=== PATIENT | male | born 1950 | race Caucasian/White ===

== ENCOUNTER 2017-09-22 05:11 | Emergency (ER) | payer MEDICARE, OTHER, SELFPAY ==
[2017-09-22 05:16] VITALS: BP 156/64; PULSE 78; RESP 15; TEMP 37; O2SAT 95; BMI 37.1
--- NOTE | 2017-09-22 05:36 | RAD_ITS ---
STUDY: X-RAY CHEST REASON FOR EXAM: Male, 67 years old. Nausea vomiting and weakness TECHNIQUE: 2 views COMPARISON: October 30, 2016 FINDINGS: The heart is at the upper limits of normal in size. Median sternotomy wires are in place. There is no acute pneumonia or failure and no pleural effusions. Normal visualized thoracic spine. Normal visualized ribs, clavicles, and shoulders. There is no demonstrated abnormality of the visualized soft tissue structures of the upper abdomen. RAD/Chest PA and Lateral IMPRESSION: No acute findings in the lungs Electronically Signed: [place], at 6:13 EDT Tel , Service support ,
--- NOTE | 2017-09-22 05:36 | EKG12_ITS ---
Test Reason : WEAKNESS Blood Pressure : / mmHG Vent. Rate : 071 BPM Atrial Rate : 071 BPM P-R Int : 180 ms QRS Dur : 108 ms QT Int : 394 ms P-R-T Axes : 029 002 037 degrees QTc Int : 428 ms Normal sinus rhythm Normal ECG Confirmed by ROSY JOSEPH MD ([id number]), sports editor OSCAR AVILES ([id number]) on 09/26/2017 2:57:19 PM Referred By: TL Confirmed By:ROSY JOSEPH MD
--- NOTE | 2017-09-22 05:39 | ED.DCSUM_ITS ---
- ER Visit Summary Date of Service: 09/22/17 Chief Complaint: Weakness, nausea, vomiting History of Present Illness: The patient is a 67 M generalized weakness since yesterday a.m. periods felt symptoms prior to going to work out, symptoms worsen. States generalized aches. Nausea vomiting ?3 since yesterday. No hematemesis. No diarrhea. No urinary symptoms. States drinking more liquids therefore increased frequency. No chest pains or cough. He is status post a four-vessel bypass in October for exertional dyspnea leading to abnormal stress test and the cath. Currently nauseated. No further complaints. Physical Examination: General: Alert and oriented ?3, no acute distress HEENT: Normocephalic, atraumatic. Moist mucosa membranes Neck: supple, nontender. Cardiovascular: Regular rate and rhythm, no murmurs. Midline chest scar Respiratory: Normal breath sounds, symmetric, no distress Abdomen: Soft, nontender, nondistended Extremities: Nontender, no edema, pulses intact ?4 Neuro: no focal neurological deficits. Test Results: EKG sinus rate of 71, no ST or T-wave changes. Chest x-ray negative. Hemoglobin 14.8. Creatinine 0.94. Troponin negative. CK 71. Urine negative. Emergency Department Course and Treatment: Patient with generalized weakness, nausea and vomiting. Currently nauseated. Given Zofran IV fluids were given. With myalgias and recent cardiac history, workup initiated. Cardiac workup negative, CPK was negative. Reevaluation symptoms much more improved, nausea improved. Discussed likely viral syndrome at this time. Monitor symptoms continue oral fluids and follow with PCP. Return if any worsening symptoms. All questions were answered. Treatment Plan: [] Disposition: Discharge Impression: 1. Nausea and vomiting 2. Weakness This note was generated with [employer] dictation software. It may contain incorrect words, spelling, and punctuation that were not noted in review of the chart prior to signing ED Disposition - Plan for ED Patient: Disposition: Home or Assisted Living Chief Complaint: Weakness Diagnosis: Weakness, Nausea and vomiting Instructions: ED Viral Syndrome, ED Diet Vomiting Diarrhea Referrals: Jersey Knox III, MD [Primary Care Provider] - 3-5 Days
[2017-09-22 05:52] LABS: Absolute Lymphocyte Count 0.82 X10^3/ul (0.83-4.51); Absolute Neutrophil Count 10.5 X10^3/uL (2.0-7.7); Basophil# 0.01 X10^3/uL; Basophil% 0.1 % (0-1); Hematocrit 43.7 % (40-54); Hemoglobin 14.8 g/dl (13.0-16.5); Lymphocyte # 0.82 X10^3/ul (4.0); Lymphocyte % 6.9 % (19-41); Mean Corp Hgb Conc 33.9 g/gl (32-36); Mean Corpuscular Hgb 31.9 pg (27.0-32.0); Mean Corpuscular Volume 94.2 fL (80-94); Mean Platelet Vol. 10.3 fl (6.2-12.0); Monocyte# 0.52 X10^3/uL; Monocyte% 4.4 % (0-10); Neutrophil # 10.46 X10^3/uL (2.7-7.7); Neutrophil % 88.4 % (47-70); Platelet Count 203 K/mm3 (150-450); RBC Distribution Width SD 43.6 fl (35.1-43.9); Red Blood Count 4.64 M/mm3 (4.6-6.2); White Blood Count 11.8 K/mm3 (4.4-11.0)
[2017-09-22] MEDS: Ondansetron 4 MG/2 ML Vial IV (05:52)
[2017-09-22 05:56] LABS: POSITIVE COUNT NO; POSITIVE DIFFERENTIAL NO; POSITIVE MORPHOLOGY NO
[2017-09-22 05:58] LABS: Mucous, Urine 0 SEEN /hpf (<or=2+); Red Blood Cells-Urine 0 SEEN /hpf (0-5)
[2017-09-22 05:59] LABS: Color, Urine Yellow (Yellow); Glucose, Dipstick Normal (Normal); Ketone-Dipstick Negative (Negative); Leukocyte Esterase-Dipstick 25 /ul (Negative); Nitrite-Dipstick Negative (Negative); Occult Blood-Urine 10 /ul (Negative); Protein-Dipstick 30 mg/dl (Negative); Urine Bilirubin Dipstick Negative (Negative); Urine Clarity Clear (Clear); Urine Urobilinogen 4 mg/dl (Normal)
[2017-09-22 06:01] LABS: Anion Gap 8 (5-15); BUN 16 mg/dL (7-18); CPK Total, Creatine Kinase 71 U/L (39-308); Calcium,Total 8.5 mg/dL (8.5-10.1); Chloride 104 mmol/L (98-107); Creatinine, Serum 0.94 mg/dL (0.70-1.30); EST Glomerular Filtration Rate 85 mL/min (>60); Est Glom Filt Rate - Afr Amer 103 mL/min (>60); Estimated Creatinine Clearance 67.87 ml/min; Glucose 122 mg/dL (74-106); Potassium 3.7 mmol/L (3.5-5.1); Sodium Level 138 mmol/L (136-145)
[2017-09-22 06:15] LABS: Squamous Epithelial Cells - UA 0-5 SEEN /hpf (0-5)
[2017-09-22 06:17] LABS: White Blood Cells 0-5 SEEN /hpf (0-5)
[2017-09-22 06:18] LABS: Bacteria RARE /hpf (None Seen)
[2017-09-22 07:05] VITALS: BP 144/66; PULSE 73; RESP 19; O2SAT 98
== END 2017-09-22 07:08 | disposition home or self-care (01) ==
PROVIDERS: Emergency Provider Emergency Medicine; Family Provider Family Medicine; PCP Family Medicine
DX: R11.2 Nausea with vomiting, unspecified (principal); R53.1 Weakness; M79.1 Myalgia; I25.10 Atherosclerotic heart disease of native coronary artery without angina pectoris; I10 Essential (primary) hypertension; N40.0 Benign prostatic hyperplasia without lower urinary tract symptoms; K21.9 Gastro-esophageal reflux disease without esophagitis; R94.39 Abnormal result of other cardiovascular function study; Z79.02 Long term (current) use of antithrombotics/antiplatelets; Z79.82 Long term (current) use of aspirin; Z79.899 Other long term (current) drug therapy; Z87.891 Personal history of nicotine dependence; Z95.1 Presence of aortocoronary bypass graft
CPT/HCPCS: 71046; 80048; 81001; 82550; 84484; 85025; 93005; 96361; 96374; 99284; J7030; J7040; A4216; J2405

== ENCOUNTER → 2017-09-23 15:26 | Outpatient (CLI) | payer MEDICARE, OTHER, SELFPAY ==
--- NOTE | 2017-09-23 15:33 | VDLE_ITS ---
Reason For Study: RLE EDEMA RIGHT GSV is normal. CFV is compressible, spontaneous, phasic, competent and demonstrates normal augmentation. FV is compressible, spontaneous, phasic, competent and demonstrates normal augmentation. POP V is compressible, spontaneous, phasic, competent and demonstrates normal augmentation. T/P Trunk is compressible. PTV is compressible. RT PerV is compressible. Procedure Exam performed in department. The exam was diagnostic. A preliminary report was called and/or faxed to Dr Tabor @ [phone] @ 3:40 pm. Interpretation Summary There is no evidence of right lower extremity deep vein thrombosis. Right greater saphenous vein appears patent and compressible segmentally. Ordering Physician: Joe Rivera Referring Physician: Joe Rivera Performed By: Siomara Falcon RVT
== END ==
PROVIDERS: Family Provider Family Medicine; PCP Family Medicine
DX: R60.0 Localized edema (principal); L53.9 Erythematous condition, unspecified; R23.8 Other skin changes
CPT/HCPCS: 93971

== ENCOUNTER 2017-10-19 08:20 | Outpatient (RCR) | payer MEDICARE, OTHER, SELFPAY | END 2017-10-25 23:59 | LOC: NS 08:20 | PROVIDERS: Family Provider Family Medicine; PCP Family Medicine; Visit Provider Family Medicine | DX: E66.1 Drug-induced obesity (principal); Z68.35 Body mass index [BMI] 35.0-35.9, adult; Z71.3 Dietary counseling and surveillance | CPT/HCPCS: 97802 ==

== ENCOUNTER 2017-11-23 08:30 | Outpatient (RCR) | payer MEDICARE, OTHER, SELFPAY | END 2017-11-25 23:59 | LOC: NS 08:30 | PROVIDERS: Family Provider Family Medicine; PCP Family Medicine; Visit Provider Family Medicine | DX: E66.1 Drug-induced obesity (principal); Z68.35 Body mass index [BMI] 35.0-35.9, adult; Z71.3 Dietary counseling and surveillance | CPT/HCPCS: 97803 ==

== ENCOUNTER 2017-12-21 10:30 | Outpatient (RCR) | payer MEDICARE, OTHER, SELFPAY | END 2017-12-25 23:59 | LOC: NS 10:30 | PROVIDERS: Family Provider Family Medicine; PCP Family Medicine; Visit Provider Family Medicine | DX: E66.1 Drug-induced obesity (principal); Z68.35 Body mass index [BMI] 35.0-35.9, adult; Z71.3 Dietary counseling and surveillance | CPT/HCPCS: 97803 ==

== ENCOUNTER 2018-01-10 08:12 | Outpatient (RCR) | payer MEDICARE, OTHER, SELFPAY | END 2018-01-25 23:59 | LOC: NS 08:12 | PROVIDERS: Family Provider Family Medicine; PCP Family Medicine; Visit Provider Family Medicine | DX: E66.1 Drug-induced obesity (principal); Z68.35 Body mass index [BMI] 35.0-35.9, adult; Z71.3 Dietary counseling and surveillance | CPT/HCPCS: 97803 ==

== ENCOUNTER 2018-02-21 08:30 | Outpatient (RCR) | payer MEDICARE, OTHER, SELFPAY | END 2018-02-24 23:59 | LOC: NS 08:30 | PROVIDERS: Family Provider Family Medicine; PCP Family Medicine; Visit Provider Family Medicine | DX: E66.1 Drug-induced obesity (principal); Z68.35 Body mass index [BMI] 35.0-35.9, adult; Z71.3 Dietary counseling and surveillance | CPT/HCPCS: 97803 ==

== ENCOUNTER 2018-03-14 08:50 | Outpatient (RCR) | payer MEDICARE, OTHER, SELFPAY | END 2018-03-27 23:59 | LOC: NS 08:50 | PROVIDERS: Family Provider Family Medicine; PCP Family Medicine; Visit Provider Family Medicine | DX: E66.1 Drug-induced obesity (principal); Z68.35 Body mass index [BMI] 35.0-35.9, adult; Z71.3 Dietary counseling and surveillance | CPT/HCPCS: 97803 ==

== ENCOUNTER 2018-04-27 08:30 | Outpatient (RCR) | payer MEDICARE, OTHER, SELFPAY | END 2018-04-27 23:59 | LOC: NS 08:30 | PROVIDERS: Family Provider Family Medicine; PCP Family Medicine; Visit Provider Family Medicine | DX: E66.1 Drug-induced obesity (principal); Z68.35 Body mass index [BMI] 35.0-35.9, adult; Z71.3 Dietary counseling and surveillance | CPT/HCPCS: 97803 ==

== ENCOUNTER 2018-05-11 08:45 | Outpatient (RCR) | payer MEDICARE, OTHER, SELFPAY | END 2018-05-11 23:59 | disposition home or self-care (01) | LOC: NS 08:45 | PROVIDERS: Family Provider Family Medicine; PCP Family Medicine; Visit Provider Family Medicine | DX: E66.1 Drug-induced obesity (principal); Z68.35 Body mass index [BMI] 35.0-35.9, adult; Z71.3 Dietary counseling and surveillance | CPT/HCPCS: 97803 ==

== ENCOUNTER 2019-02-09 05:24 | Observation (INO) | payer MEDICARE, OTHER, SELFPAY ==
[2019-02-09] VITALS (12 sets, daily range): BP systolic 143–189; BP diastolic 62–82; PULSE 54–64; RESP 15–18; TEMP 36.6–37.1; O2SAT 95–99; BMI 35.6; BMI 34.7
[2019-02-09 05:40] LABS: Bedside Glucose 92 mg/dL (70-110)
--- NOTE | 2019-02-09 05:42 | NURSING ---
BLOOD SUGAR 92.
--- NOTE | 2019-02-09 05:52 | CT_ITS ---
STUDY: CT BRAIN WITHOUT CONTRAST REASON FOR EXAM: Male, 69 years old. Numbness RADIATION DOSAGE (If Supplied By Facility): CTDIvol = ( 44.99 ) mGy, DLP = ( 829.85 ) mGycm TECHNIQUE: Transaxial CT imaging of the brain was performed without administration of intravenous contrast material. Individualized dose optimization techniques were used for this CT. COMPARISON: 07/09/2015 FINDINGS: Normal soft tissue structures. Normal calvarium. Normal size ventricles and extra-axial spaces for the patient's age. Normal white matter tracts of the cerebral hemispheres. Normal basal ganglia and thalami. Normal brainstem. Normal cerebellum. There is no intracranial hemorrhage. There are no findings of an acute ischemic infarction. Normal visualized paranasal sinuses. CT/Brain/Head without Contrast IMPRESSION: Normal unenhanced CT scan of the brain. Electronically Signed: Nba Garrido MD at 6:13 EST , Service support ,
--- NOTE | 2019-02-09 05:52 | EKG12_ITS ---
Test Reason : NEURO Blood Pressure : / mmHG Vent. Rate : 054 BPM Atrial Rate : 054 BPM P-R Int : 202 ms QRS Dur : 100 ms QT Int : 436 ms P-R-T Axes : 018 -03 026 degrees QTc Int : 413 ms Sinus bradycardia Otherwise normal ECG Confirmed by JAKE MELTON, ROSY ([id number]), communications editor OSCAR AVILES ([id number]) on 02/13/2019 11:31:02 AM Referred By: SUSAN Confirmed By:ROSY JOSEPH MD
--- NOTE | 2019-02-09 05:52 | RAD_ITS ---
STUDY: X-RAY CHEST REASON FOR EXAM: Male, 69 years old. Numbness TECHNIQUE: Frontal view COMPARISON: 09/22/2017 FINDINGS: The lungs are clear and expanded. There is no demonstrated pleural abnormality. There is mild cardiac enlargement. There has been open heart surgery. Normal visualized pulmonary arteries. Normal visualized aortic arch and descending thoracic aorta. Normal visualized thoracic spine. Normal visualized ribs, clavicles, and shoulders. There is no demonstrated abnormality of the visualized soft tissue structures of the upper abdomen. RAD/Chest 1 View IMPRESSION: There is NO acute cardiopulmonary abnormality. Electronically Signed: Nba Garrido MD at 6:21 EST , Service support ,
--- NOTE | 2019-02-09 06:02 | ED.VIS.STROK ---
History of Present Illness Chief Complaint: Numb/Ting Informant: Patient Onset: Hours - 2 Context: Sudden Onset - relatively; was already awake, did not wake him up Timing: Continuous Quality and Location: Right Face Paresthesia. Negative for: Right Facial Droop - felt like he was drooling out of right side of mouth, but saw no facial asymmetry when looking in the mirror., Left Arm Weakness, Right Leg Weakness, Left Leg Weakness, Slurred Speech, Expressive Aphasia, Receptive Aphasia, Difficulty with Ambulation Onset: acute Current Severity: Mild Maximum Severity: Moderate Worsened by: nothing Relieved by: nothing in particular Associated Symptoms: Negative for: Headache, Nausea, Vomiting, Chest Pain Narrative: Patient has a history of coronary disease with stents and CABG done remotely, he has been doing very well. He usually gets up very early in the morning as he did today, and at 4 AM noticed he was having some numbness on the right side of his face, forehead and lower face. He felt like he was drooling out the right side of his mouth, but when he looked in the mirror he did not see any asymmetry. He experienced no symptoms in his arms or legs, no trouble speaking or understanding others, feeling confused, or any other acute symptoms such as headache or chest pain. He takes aspirin daily, no longer takes clopidogrel and no anticoagulants. Prior similar symptoms: No Recent Illness/Hospitalization: No - Past Medical History (1) CAD (coronary artery disease) Status: Chronic (2) BPH (benign prostatic hyperplasia) Status: Chronic (3) GERD (gastroesophageal reflux disease) Status: Chronic (4) Hyperlipidemia Status: Chronic (5) Hypertension Status: Chronic Past Medical History - Allergies and Home Meds Allergies/Adverse Reactions: Allergies Ogxmoha-Uci-Zvu Reductase Inhibitor Adverse Reaction (Verified 02/09/19 05:27) muscle pain Primary Care Physician: Jersey Knox III, MD [Primary Care Provider] - Surgical History: angioplasty - stents, coronary bypass surgery, herniorrhaphy, tonsillectomy, - - Surgery for ruptured lumbar disc ?2 Lives: Alone Smoking Status: Former smoker Drugs: None - Family History Maternal Family History: Reports: Heart Disease Paternal Family History: Reports: No pertinent history Sibling Family History: Reports: Heart Disease Review of Systems General: Denies: Chills, Fever, Sweats Eyes: Denies: Visual changes - bilaterally, Diplopia ENT: Denies: Rhinorrhea, Sore throat Cardiovascular: Denies: Chest pain, Palpitations Respiratory: Denies: Dyspnea, Cough, Dyspnea on exertion Gastrointestinal: Denies: Abdominal pain, Nausea, Vomiting, Diarrhea, Melena, Hematochezia Genitourinary: Denies: Dysuria, Hematuria, Frequency Musculoskeletal: Denies: Neck pain, Back pain, Swelling, Extremity Pain Skin: Denies: Rash, Wounds Neurological: Reports: Numbness. Denies: Headache, Weakness STROKE Vital Signs/Narrative: Vital Signs Temp Pulse Resp BP Pulse Ox 02/09/19 05:59 63 18 179/72 H 96 02/09/19 05:43 61 18 179/72 H 98 02/09/19 05:24 97.9 F 64 16 189/82 H 98 Inital Vital Signs reviewed: Yes - NIHSS Initial 1a Level of Consciousness: 0 1b LOC Questions (Score 2 if aphasic/stupor): 0 1c LOC Commands (Only score 1st attempt): 0 2 Best Gaze (If aphasic, use reflexive mvmts.): 0 3 Visual: 0 4 Facial Palsy: 0 5 Motor Arm Right (UN = amputation/fusion): 0 5 Motor Arm Left: 0 6 Motor Leg Right: 0 6 Motor Leg Left: 0 7 Limb ataxia (Only + if out of proportion): 0 8 Sensory (Aphasia/stupor=0 or 1, coma=2): 0 9 Best Language: 0 10 Dysarthria (mute, coma=2, intubated=UN): 0 11 Extinction and Inattention (only scored if +): 0 Total Score: 0 General: Well nourished, Well developed Head: Normocephalic, Atraumatic Eyes: Perrl, EOMI ENT: Moist mucous membranes, No rhinorrhea Neck: Supple, Nontender, - - no carotid bruits Cardiovascular: Regular rate, Regular rhythm, No murmurs Respiratory: No distress, CTA bilaterally, Chest nontender Abdomen: Soft, Nontender, Nondistended, Normal bowel sounds Back: Nontender, Normal Inspection Extremities: Nontender, No edema Skin: Normal color, No rash, No Trauma Neurological: Alert, Oriented x3, Cranial nerves II-XII grossly intact, Normal Strength, Normal Sensation, Normal Gait Psychological: Normal affect, Normal Mood Diagnostic/Tx/Re-eval Impressions Brain CT 02/09/19 05:52 IMPRESSION: Normal unenhanced CT scan of the brain. Electronically Signed: Nba Garrido MD at 6:13 EST , Service support , Chest X-Ray 02/09/19 05:52 IMPRESSION: There is NO acute cardiopulmonary abnormality. Electronically Signed: Nba Garrido MD at 6:21 EST , Service support , 02/09/19 05:52 Brain/Head without Contrast [CT] Stat Chest 1 View [RAD] Stat Laboratory Results 02/09/19 02/09/19 02/09/19 05:30 05:30 05:30 WBC 5.3 RBC 4.85 Hgb 15.4 Hct 47.2 MCV 97.3 H MCH 31.8 MCHC 32.6 RDW Std Deviation 43.8 RDW Coeff of Joselyn 12.2 Plt Count 179 MPV 10.3 Immature Gran % (Auto) 0.200 Neut % (Auto) 53.6 Lymph % (Auto) 32.6 Stoddard % (Auto) 10.3 H Eos % (Auto) 2.6 Baso % (Auto) 0.7 Absolute Neuts (auto) 2.9 Absolute Lymphs (auto) 1.74 Nucleated RBC % 0 PT 12.1 INR 0.9 APTT 25.4 Sodium 141 Potassium 4.0 Chloride 104 Carbon Dioxide 28.0 Anion Gap 9 BUN 19 H Creatinine 1.25 Estim Creat Clear Calc 49.62 Est GFR (MDRD) Af Amer 73 Est GFR (MDRD) Non-Af 61 BUN/Creatinine Ratio 15.2 Glucose 105 Calcium 8.7 Troponin I < 0.015 POC Glucose 02/09/19 05:34 WBC RBC Hgb Hct MCV MCH MCHC RDW Std Deviation RDW Coeff of Joselyn Plt Count MPV Immature Gran % (Auto) Neut % (Auto) Lymph % (Auto) Stoddard % (Auto) Eos % (Auto) Baso % (Auto) Absolute Neuts (auto) Absolute Lymphs (auto) Nucleated RBC % PT INR APTT Sodium Potassium Chloride Carbon Dioxide Anion Gap BUN Creatinine Estim Creat Clear Calc Est GFR (MDRD) Af Amer Est GFR (MDRD) Non-Af BUN/Creatinine Ratio Glucose Calcium Troponin I POC Glucose 92 - Rhythm Strip Rhythm Strip: Sinus Rhythm Rate: 65 Ectopy: None - EKG Initial EKG Interpretation: No Acute Injury Pattern, Sinus Bradycardia Prior: Unchanged - Medical Decision Making Stroke Team Activated: No - NIHSS 0, sx almost completely resolved Reviewed Inclusion/Exclusion criteria: Yes Was Patient considered for Endovascular Intervention?: No - NIHSS 0 IV Alteplase (t-PA) Administered: No - See below I initially saw this patient, he had no facial motor asymmetry, and before I could do an adequate neurologic exam, I was interrupted for other patient care and internet sales consultant discussion. When I went back to finish history and exam, the patient's numbness was almost completely gone. His total NIH at that point was 0. Therefore I did not call stroke alert but ordered the same work-up we would do with a stroke alert anyway. It was done in a timely fashion, the CT was resulted to me at 0618 as normal/negative, I reevaluated patient, he is improved still with no changes for the worse, I discussed with stroke neurologist at [facility] over a phone consultation, she agreed with admitting the patient for MRI/MRA and further TIA work-up and monitoring, and agreed that the patient is not a TPA candidate since his NIH stroke scale is 0 at this time and he has no disabling neurologic symptoms at this time. Furthermore, on reevaluation again, his symptoms are totally resolved. Patient took his baby aspirin this morning, I gave him more to equal 324 mg, and discussed with hospitalist for PCU admission and further work-up. Patient is amenable to this plan. ED Disposition - Plan for ED Patient: Disposition: Acute Care Hospital [facility] Diagnosis: TIA (transient ischemic attack) Referrals: Jersey nKox III, MD [Primary Care Provider] -
[2019-02-09 06:06] LABS: Absolute Lymphocyte Count 1.74 X10^3/uL (0.83-4.51); Absolute Neutrophil Count 2.9 X10^3/uL (2.0-7.7); Basophil# 0.04 X10^3/uL; Basophil% 0.7 % (0-1); Eosinophil# 0.14 X10^3/uL; Eosinophils% 2.6 % (0-5); Hematocrit 47.2 % (40-54); Hemoglobin 15.4 g/dL (13.0-16.5); Lymphocyte # 1.74 X10^3/ul (4.0); Lymphocyte % 32.6 % (19-41); Mean Corp Hgb Conc 32.6 g/dL (32-36); Mean Corpuscular Hgb 31.8 pg (27.0-32.0); Mean Corpuscular Volume 97.3 fL (80-94); Mean Platelet Vol. 10.3 fl (6.2-12.0); Monocyte# 0.55 X10^3/uL; Monocyte% 10.3 % (0-10); NRBC Flagged by Analyzer 0 % (0-5); Neutrophil # 2.86 X10^3/uL (2.7-7.7); Neutrophil % 53.6 % (47-70); Platelet Count 179 K/mm3 (150-450); RBC Distribution Width CV 12.2 % (11.6-14.6); RBC Distribution Width SD 43.8 fl (35.1-43.9); Red Blood Count 4.85 M/mm3 (4.6-6.2); White Blood Count 5.3 K/mm3 (4.4-11.0)
[2019-02-09 06:12] LABS: International Normalized Ratio 0.9; Partial Thromboplast Time 25.4 Seconds (24.1-36.2); Prothrombin Time (Protime)PT. 12.1 SECONDS (11.7-14.9)
[2019-02-09] MEDS: 0.9% Normal Saline 1,000 ML 100 ML IV ×2 (06:18→10:47)
[2019-02-09 06:21] LABS: Anion Gap 9 (5-15); BUN 19 mg/dL (7-18); BUN/Creat Ratio 15.2 RATIO (10-20); Calcium,Total 8.7 mg/dL (8.5-10.1); Chloride 104 mmol/L (98-107); Creatinine, Serum 1.25 mg/dL (0.70-1.30); EST Glomerular Filtration Rate 61 mL/min (>60); Est Glom Filt Rate - Afr Amer 73 mL/min (>60); Estimated Creatinine Clearance 49.62 ml/min; Glucose 105 mg/dL (74-106); Sodium Level 141 mmol/L (136-145)
[2019-02-09] MEDS: Aspirin 81 MG TAB.CHEW 243 MG PO (06:52)
--- NOTE | 2019-02-09 08:08 | ECHOCS_ITS ---
Reason For Study: TIA/CVA Procedure This was a 2D Doppler, Color Flow transthoracic echocardiogram. The study was technically difficult. Contrast injection was performed. Exam performed portable in patient room. Left Ventricle Normal LV size. Segmental dysfunction with preserved ejection fraction (see wall motion). The estimated ejection fraction is 55 %. Post operative septal motion. No evidence for diastolic dysfunction. Basal inferoseptal: Hypokinetic. Basal anteroseptal: Hypokinetic. Mid-inferoseptal : Hypokinetic. Mid-anteroseptal : Hypokinetic. Right Ventricle Normal RV size. Normal systolic function. Atria The left atrium is mildly enlarged. Normal right atrium. No doppler evidence for ASD. Mitral Valve There is no mitral annular calcification. Normal mitral valve. Trivial mitral valve insufficiency. Tricuspid Valve Normal tricuspid valve. Mild tricuspid valve insufficiency. Right ventricular systolic pressure estimated to be 28 mmHg. Aortic Valve Trisinus/trileaflet aortic valve. Normal aortic valve. Pulmonic Valve The pulmonic valve is not well visualized. Trivial pulmonic valve insufficiency. Great Vessels Normal sized aortic root. Pericardium/Pleural No pericardial effusion. Medication Performed a rapid injection of agitated mix of 9 cc saline and 1cc air to assess for atrial septal defect. Diluted definity 2ml given slow IV push to enhance endocardial definition. MMode/2D Measurements & Calculations LVIDd: 4.8 cm IVSd: 1.0 cm Ao root diam: 3.5 cm LVIDs: 2.7 cm LVPWd: 1.0 cm RVDd: 3.7 cm FS: 42.7 % LAV(MOD-bp): 58.0 ml LA A4 area: 19.6 cm2 LA dimension(2D): 4.6 cm LAV(MOD-bp) Indexed: 27.9 ml/m2 LAV(MOD-sp2): 63.5 ml LAV(MOD-sp4): 53.6 ml RA A4 area: 19.6 cm2 Doppler Measurements & Calculations MV E max angus: 74.4 cm/sec Lat Peak E' Angus: 10.7 cm/sec Med Peak E' Angus: 7.4 cm/sec MV A max angus: 76.7 cm/sec E/E' lat: 6.9 E/E' med: 10.0 MV E/A: 0.97 Ao V2 max: 122.3 cm/sec LV V1 max: 101.2 cm/sec PA V2 max: 107.7 cm/sec Ao max P.0 mmHg LV V1 max P.1 mmHg TR max angus: 249.2 cm/sec TR max P.8 mmHg Interpretation Summary The study was technically difficult. Contrast injection was performed. Segmental dysfunction with preserved ejection fraction (see wall motion). The estimated ejection fraction is 55 %. Post operative septal motion. The left atrium is mildly enlarged. Trivial mitral valve insufficiency. Mild tricuspid valve insufficiency. Trivial pulmonic valve insufficiency. Right ventricular systolic pressure estimated to be 28 mmHg. No evidence for diastolic dysfunction. Ordering Physician: Rhett Ely Referring Physician: CARI Knox M.D. Performed By: Daya Myles RDCS
--- NOTE | 2019-02-09 08:08 | MRI_ITS ---
STUDY: MRA NECK WITH AND WITHOUT CONTRAST REASON FOR EXAM: Male, 69 years old. TIA TECHNIQUE: 3-D gkkm-ch-hbdfni (TOF) imaging was performed in an 1.5 T MRI scanner. IV Dotarem 20 was administered for the contrast enhanced images. COMPARISON: None. FINDINGS: RIGHT CAROTID ARTERIES: Normal right common carotid artery (CCA). Normal right common carotid bulb. There is mild atherosclerotic plaque formation of the origin of the right internal carotid artery with less than 50% cross sectional diameter stenosis. Normal visualized cervical portion of the right internal carotid artery. Normal origin of the right external carotid artery (ECA). LEFT CAROTID ARTERIES: Normal left common carotid artery (CCA). Normal left common carotid bulb. Normal origin of the left internal carotid (ICA) artery without a hemodynamically significant stenosis. Normal visualized cervical portion of the left internal carotid artery. Normal origin of the left external carotid artery (ECA). VERTEBRAL ARTERIES: Normal antegrade flow within the bilateral vertebral artery without a hemodynamically significant stenosis. MRI/MRA Neck WITH and W/O Contrast IMPRESSION: 1. Mild (20%) right carotid stenosis. 2. No left carotid stenosis. 3. Patent vertebral arteries bilaterally. Electronically Signed: Romulo Cortes MD at 11:50 EST Tel , Service support ,
--- NOTE | 2019-02-09 08:08 | MRI_ITS ---
STUDY: MRI BRAIN WITHOUT CONTRAST REASON FOR EXAM: Male, 69 years old. TIA, right-sided facial numbness and tingling. TECHNIQUE: Standardized multiplanar fat and water weighted pulse sequences were obtained. COMPARISON: 02/09/2019 FINDINGS: Normal size of the ventricles and extra-axial spaces for the patient's age. Normal white matter tracts of the supratentorial brain. There is no evidence for recent intracranial ischemia or other cause of cytotoxic edema on diffusion weighted imaging (DWI). Normal T2* images of the brain without demonstrated susceptibility artifact. There is no demonstrated hemosiderin stain. Normal bilateral basal ganglia. Normal thalami. There is no extra-axial fluid accumulation. Normal flow voids within the major intracranial circulation suggesting patency by spin echo criteria. Normal sella turcica, pituitary gland, infundibular stalk, optic chiasm and hypothalamus. Normal tectal plate and pineal gland. Normal midbrain, avery and medulla. Normal cerebellum. Normal basal cisterns. Normal bilateral temporal bones. Normal bilateral internal auditory canals. No demonstrated orbital abnormality, within the constraints of a routine brain study. Normal visualized paranasal sinuses. Normal calvarium and skull base. Normal visualized soft tissue structures. Normal visualized upper cervical spine. MRI/Brain without Contrast IMPRESSION: Normal unenhanced MRI of the brain. Electronically Signed: Romulo Cortes MD at 11:04 EST Tel , Service support ,
--- NOTE | 2019-02-09 08:08 | MRI_ITS ---
STUDY: MRA OF THE HEAD WITHOUT CONTRAST REASON FOR EXAM: Male, 69 years old. TIA, right facial numbness and tingling. TECHNIQUE: 3-D pfko-xw-vycbux (TOF) imaging was performed with MIPs. The study was performed unenhanced. COMPARISON: None. FINDINGS: Normal bilateral petrous carotid arteries. Normal right cavernous carotid artery with a normal supraclinoid bifurcation. Normal left cavernous carotid artery with a normal supraclinoid bifurcation. Normal right A1 segments of the anterior cerebral artery. Normal left A1 segments of the anterior cerebral artery. Normal intact anterior communicating artery (ACOM). Normal bilateral A2 segments of the anterior cerebral arteries. Normal right M1 and M2 segments of the middle cerebral arteries, with a normal M1 bifurcation. Normal left M1 and M2 segments of the middle cerebral arteries, with a normal M1 bifurcation. Normal right posterior communicating artery (PCOM). Normal left posterior communicating artery (PCOM). Normal bilateral vertebral arteries. Normal basilar artery with a normal basilar bifurcation. The visualized bilateral superior cerebellar (SCA) arteries are normal. Normal bilateral P1, P2 and visualized P3 segments of the posterior cerebral arteries. There is no demonstrated aneurysm of the [place] of [place]. There is no major vessel occlusion or hemodynamically significant stenosis. There is no demonstrated abnormality of the visualized brain. MRI/MRA Head ONLY without Contrast IMPRESSION: Normal MRA of the head Electronically Signed: Romulo Cortes MD at 10:59 EST Tel , Service support ,
[2019-02-09] MEDS: Heparin Injection (Vial) 5,000 UNIT/ML VIAL 5000 UNIT SC (10:47)
--- NOTE | 2019-02-09 11:30 | DCINST_ITS ---
- Discharge Diagnoses Current Active Problems: Current Active and Chronic Problems TIA (transient ischemic attack) (Acute) You will use the following diet at home:: Cardiac Your food should be the consistency of: Regular Your liquids should be the consistency of: Regular/Thin Discharge Activity: Return to Normal Activity Allergies/Adverse Reactions: Allergies Mmqracx-Owu-Kqc Reductase Inhibitor Adverse Reaction (Verified 02/09/19 05:27) muscle pain Medications to take at Discharge Aspirin [Aspirin, Baby] 81 mg PO DAILY@0800 03/24/14 Omeprazole [Prilosec] 20 mg PO DAILY 03/24/14 Rosuvastatin Calcium [Crestor] 40 mg PO QHS 10/30/16 Losartan Potassium 50 mg PO DAILY 09/22/17 Metoprolol Tartrate 1 tab PO BID 09/22/17 Multivitamin [Daily Multiple Vitamin] 1 tab PO DAILY 09/22/17 Clopidogrel Bisulfate [Plavix] 75 mg PO DAILY #30 tab 02/09/19 The following prescriptions were given: Clopidogrel Bisulfate [Plavix] 75 mg PO DAILY #30 tab Transmission Status: Pending to [id number] Primary Care Physician: Jersey Knox III, MD [Primary Care Provider] - Please follow up with your Primary Care Physician in: 1 week Test Results: Test results from this visit will be discussed in further detail at your follow- up appointment, if applicable. Please Follow Up With: Blas Blackwell MD - Neurology When: 2 weeks Proposed Discharge Date: 02/09/19
--- NOTE | 2019-02-09 11:36 | PCM.HP.STD ---
<Maxime Delgado - Last Filed: 02/09/19 11:36> Problem List (1) TIA (transient ischemic attack) Status: Acute (2) Hx of CABG Status: Chronic (3) Paroxysmal A-fib Status: Chronic (4) CAD (coronary artery disease) Status: Chronic Qualifiers: Coronary Disease-Associated Artery/Lesion type: bypass graft (5) GERD (gastroesophageal reflux disease) Status: Chronic (6) BPH (benign prostatic hyperplasia) Status: Chronic (7) Hyperlipidemia Status: Chronic (8) Hypertension Status: Chronic History of Present Illness Date of Admission: 02/09/19 Chief Complaint: right sided facial numbness The patient is a 69 year old M with pmhx of CAD with prior CABG, episode of atrial fibrillation during that hospitalization, also with hx of stents, BPH, GERD, HTN, HLD who presented to the ER with c/o right sided facial numbness. This was first noticed when he woke up this AM about 0400. He had drooling in the right sided of his mouth and his forehead and right cheek felt numb. He left his home and became concerned because the sensations persisted, so he drove home and called the squad. He denied any focal weakness, hearing or vision changes, headache, slurred speech or difficulty swallowing. In the ER, CT brain was negative. His BP was markedly elevated at 189/82 on arrival. He had negative EKG. His symptoms spontaneously and completely resolved in the ER. He has no hx of stroke. He was already on baby aspirin daily for hx of CAD. He reports he is in good physical shape with no physical restrictions from his heart, and works out at least 3 x per week and has a certified adapted physical educator. [] Past Medical History Past Medical History (Chronic Problems): Chronic Problems Hx of CABG (Chronic) Paroxysmal A-fib (Chronic) CAD (coronary artery disease) (Chronic) GERD (gastroesophageal reflux disease) (Chronic) BPH (benign prostatic hyperplasia) (Chronic) Hyperlipidemia (Chronic) Hypertension (Chronic) Allergies Fzsdpzh-Gfx-Uuf Reductase Inhibitor Adverse Reaction (Verified 02/09/19 05:27) muscle pain Home Medications: Ambulatory Orders Medication Instructions Recorded Aspirin [Aspirin, Baby] 81 mg PO DAILY@0800 03/24/14 Omeprazole [Prilosec] 20 mg PO DAILY 03/24/14 Rosuvastatin Calcium [Crestor] 40 mg PO QHS 10/30/16 Losartan Potassium 50 mg PO DAILY 09/22/17 Metoprolol Tartrate 1 tab PO BID 09/22/17 Multivitamin [Daily Multiple 1 tab PO DAILY 09/22/17 Vitamin] Clopidogrel Bisulfate [Plavix] 75 mg PO DAILY #30 tab 02/09/19 Surgical History: angioplasty - stents, coronary bypass surgery, herniorrhaphy, tonsillectomy, - - Surgery for ruptured lumbar disc ?2 Psychiatric History: No pertinent psych hx Lives: Alone Smoking Status: Former smoker Tobacco Use: Non-smoker Alcohol: None Drugs: None - *Family History Maternal History Items: Heart Disease Paternal History Items: No pertinent history Sibling History Items: Heart Disease Review of Systems Constitutional: Denies: Chills, Fever, Malaise, Weakness, Weight Change, Fatigue HEENT: Denies: Head Aches, Hearing Changes, Sinus Congestion, Sinus Drainage, Sore Throat, Visual Changes Cardiovascular: Denies: Chest Pain, Chest Pressure, Chest Tightness, Heaviness, Light Headedness, Palpitations Respiratory: Denies: Cough, Pleuritic Pain, Shortness of Breath, Shortness of breath at rest, Shortness of breath upon exertion, Sputum production, Wheezing Gastrointestinal: Denies: Abdominal Pain, Diarrhea, Nausea, Vomiting Genitourinary: Denies: Dysuria, Retention, Urgency Musculoskeletal: Denies: Joint Pain, Joint Tenderness, Muscle pain Skin: Denies: Lesions, Rash, Wounds Neurological: Reports: Numbness, Tingling. Denies: Balance problems, Blurred vision, Double vision, Change in Speech, Slurred speech, Confusion, Focal weakness, Headaches, Incoordination, Tremor, Seizures Psychiatric: Denies: Anxiety, Depression, Homicidal Ideations, Suicidal Ideations Hematologic/ Lymphatic: Denies: Easy Bruising, Easy Bleeding VTE Information - Inpt Only VTE Present on Admission: No VTE Mechan Device Prophylaxis: None VTE Pharm Prophylaxis ordered?: Yes Patient Problems: Active and Suspected Problems TIA (transient ischemic attack) (Acute) - Physical Exam Vitals/I&O's: Vital Signs Temp Pulse Resp BP Pulse Ox 97.8 F 54 L 18 152/62 H 99 02/09/19 08:26 02/09/19 09:59 02/09/19 08:26 02/09/19 08:26 02/09/19 08:26 Oxygen Delivery Method Room Air Weight: 215 lb 1.6 oz Body Mass Index (BMI) 34.7 Finger Stick Blood Glucose 92 Intake and Output for Last 24 Hours 02/07/19 02/08/19 02/09/19 23:59 23:59 23:59 Intake Total 1000 / 1000 Output Total 200 / 200 Balance 800 / 800 General: Alert, Oriented x3, Cooperative HEENT: Atraumatic, PERRLA, EOMI, Normocephalic Neck: Supple, No JVD, Negative Carotid Bruits Lungs: Clear to auscultation, Normal air movement Cardiovascular: Regular rate, No murmurs Abdomen: Bowel Sounds Present, Soft, Non Tender Extremities: No edema, Capillary Refill Less than 3 Seconds Skin: No rashes, No breakdown Musculoskeletal: No Tenderness to Palpation of Joints or Extremities Neurological: Cranial nerves II-XII grossly intact Psych/Mental Status: Normal Affect, Appropriate, Alert and oriented to time, place, person, mood and affect Laboratory Results 02/09/19 05:30: WBC 5.3, RBC 4.85, Hgb 15.4, Hct 47.2, MCV 97.3 H, MCH 31.8, MCHC 32.6, RDW Std Deviation 43.8, RDW Coeff of Joselyn 12.2, Plt Count 179, MPV 10.3, Immature Gran % (Auto) 0.200, Neut % (Auto) 53.6, Lymph % (Auto) 32.6, [place] % (Auto) 10.3 H, Eos % (Auto) 2.6, Baso % (Auto) 0.7, Absolute Neuts (auto) 2.9, Absolute Lymphs (auto) 1.74, Nucleated RBC % 0 02/09/19 05:30: PT 12.1, INR 0.9, APTT 25.4 02/09/19 05:30: Sodium 141, Potassium 4.0, Chloride 104, Carbon Dioxide 28.0, Anion Gap 9, BUN 19 H, Creatinine 1.25, Estim Creat Clear Calc 49.62, Est GFR (MDRD) Af Amer 73, Est GFR (MDRD) Non-Af 61, BUN/Creatinine Ratio 15.2, Glucose 105, Calcium 8.7, Troponin I < 0.015 02/09/19 05:34: POC Glucose 92 Current Medications Aspirin (Aspirin, Baby) 81 mg PO DAILY@0800 [facility] Atorvastatin Calcium (Lipitor) 80 mg PO QHS [facility] Heparin Sodium (Porcine) (Heparin Na) 5,000 unit SC Q12 [facility] Last Admin: 02/09/19 10:47 Dose: 5,000 unit Documented by: Sodium Chloride () 1,000 mls @ 100 mls/hr IV .Q10H ONE Stop: 02/09/19 15:51 Last Infusion: 02/09/19 11:19 Dose: Infused Documented by: Sodium Chloride () 1,000 mls @ 100 mls/hr IV .Q10H [facility] Last Admin: 02/09/19 10:47 Dose: 100 mls/hr Documented by: Pantoprazole Sodium (Protonix) 20 mg PO DAILY [facility] Last Admin: 02/09/19 10:22 Dose: Not Given Documented by: Sodium Chloride () 10 - 40 ml IV UD PRN PRN Reason: SALINE FLUSH Assessment/Plan All Active Problems TIA (transient ischemic attack) (Acute) Chest pain (Acute) 1. TIA - right sided facial parasthesias, syptoms completed resolved. Hx of pAfib following riccardo-CABG, but no issues since. Former smoker. Continue aspirin. Continue high intenstity statin. Add plavix. MRI brain, MRA head/neck, obtain Echo. PT/OT/ST evals. FLP as o/p if DC today. Check a1c. 2. PAfib - not treated currently as he only had one episode riccardo-CABG. Maintain tele, likely needs 30 day monitor at DC. 3. Obesity - with TIA will check A1C, nutrition consult. 4. HTN - permissive. 5. HLD - already on max crestor 6. GERD - ppi DVT ppx: heparin DC planning: likely home no needs with o/p f/u with neuro This patient was seen by Maxime Delgado PA-C under the supervision of Doctor Solis. <Rhett Ely F - Last Filed: 02/09/19 14:20> History of Present Illness The patient is a 69 year old M [] Past Medical History Allergies Hqsqrjb-Lbn-Oor Reductase Inhibitor Adverse Reaction (Verified 02/09/19 05:27) muscle pain - Physical Exam Vitals/I&O's: Vital Signs Temp Pulse Resp BP Pulse Ox 98.8 F 58 L 18 143/71 H 95 02/09/19 14:11 02/09/19 14:11 02/09/19 14:11 02/09/19 14:11 02/09/19 14:11 Oxygen Delivery Method Room Air Weight: 215 lb 1.6 oz Body Mass Index (BMI) 34.7 Finger Stick Blood Glucose 92 Intake and Output for Last 24 Hours 02/07/19 02/08/19 02/09/19 23:59 23:59 23:59 Intake Total 1000 / 1000 Output Total 200 / 200 Balance 800 / 800 Laboratory Results 02/09/19 05:30: WBC 5.3, RBC 4.85, Hgb 15.4, Hct 47.2, MCV 97.3 H, MCH 31.8, MCHC 32.6, RDW Std Deviation 43.8, RDW Coeff of Joselyn 12.2, Plt Count 179, MPV 10.3, Immature Gran % (Auto) 0.200, Neut % (Auto) 53.6, Lymph % (Auto) 32.6, [place] % (Auto) 10.3 H, Eos % (Auto) 2.6, Baso % (Auto) 0.7, Absolute Neuts (auto) 2.9, Absolute Lymphs (auto) 1.74, Nucleated RBC % 0 02/09/19 05:30: PT 12.1, INR 0.9, APTT 25.4 02/09/19 05:30: Sodium 141, Potassium 4.0, Chloride 104, Carbon Dioxide 28.0, Anion Gap 9, BUN 19 H, Creatinine 1.25, Estim Creat Clear Calc 49.62, Est GFR (MDRD) Af Amer 73, Est GFR (MDRD) Non-Af 61, BUN/Creatinine Ratio 15.2, Glucose 105, Calcium 8.7, Troponin I < 0.015 02/09/19 05:30: Hemoglobin A1c 5.3 02/09/19 05:34: POC Glucose 92 Current Medications Aspirin (Aspirin, Baby) 81 mg PO DAILY@0800 [facility] Atorvastatin Calcium (Lipitor) 80 mg PO QHS [facility] Heparin Sodium (Porcine) (Heparin Na) 5,000 unit SC Q12 [facility] Last Admin: 02/09/19 10:47 Dose: 5,000 unit Documented by: Sodium Chloride () 1,000 mls @ 100 mls/hr IV .Q10H ONE Stop: 02/09/19 15:51 Last Infusion: 02/09/19 11:19 Dose: Infused Documented by: Sodium Chloride () 1,000 mls @ 100 mls/hr IV .Q10H [facility] Last Admin: 02/09/19 10:47 Dose: 100 mls/hr Documented by: Pantoprazole Sodium (Protonix) 20 mg PO DAILY [facility] Last Admin: 02/09/19 10:22 Dose: Not Given Documented by: Sodium Chloride () 10 - 40 ml IV UD PRN PRN Reason: SALINE FLUSH Code Visit Addendum: Dr. Ely I personally examined the patient and reviewed the chart. I agree with the above. 69-year-old male with a previous history of cardiac stents which is why he is on aspirin, as well as losartan metoprolol and Crestor presents with an episode of right-sided numbness and tingling in his face with the impression that he was drooling. He had this started around 4 AM today and he presented to the ER at which point his symptoms had resolved. He was admitted for further evaluation. He underwent an MRI of his head as well as MRA of his head and neck. All 3 studies were negative for either a stroke or any intravascular narrowing that would require intervention. He will also obtain an echo, however since he has had symptom resolution and there is no evidence of a stroke on his MRI at this point, he is being ruled a TIA. He will follow-up with the [facility] neurology on discharge. Will add Plavix since he had a TIA on aspirin. Crestor of 40 mg was continued. On admission in the ER his NIH was 0 and his NIH has remained 0, and the rest of his neurological exam was unremarkable. OBSV E&M: [id number] Initial observation care L3
--- NOTE | 2019-02-09 11:41 | CASEMGMT ---
SW completed a PHQ-9 with patient as he had a TIA. Patient scored a 1 which indicates minimal depression. Patient declined need for any resources at this time. Greta MEREDITH MSW
--- NOTE | 2019-02-09 12:29 | PHA.DC.MC ---
Pharmacy Service has performed discharge medication reconciliation and counseling for this patient. 1. CLOPIDOGREL 75MG PO DAILY The patient's discharge medication list was reviewed for discrepancies and discrepancies were resolved. Home Medications Aspirin [Aspirin, Baby] 81 mg PO DAILY@0800 03/24/14 Omeprazole [Prilosec] 20 mg PO DAILY 03/24/14 Rosuvastatin Calcium [Crestor] 40 mg PO QHS 10/30/16 Losartan Potassium 50 mg PO DAILY 09/22/17 Metoprolol Tartrate 1 tab PO BID 09/22/17 Multivitamin [Daily Multiple Vitamin] 1 tab PO DAILY 09/22/17 Clopidogrel Bisulfate [Plavix] 75 mg PO DAILY #30 tab 02/09/19 The patient was counseled on the following discharge medications and changes in medications for homegoing were reviewed. The Reason for Use, instructions for use, and potential side effects were reviewed for all new medications. The patient's questions regarding all of their medications were answered. The patient was able to verbally demonstrate an understanding of their discharge medications.
[2019-02-09 12:45] LABS: Hemoglobin A1c 5.3 % (4.2-6.3)
--- NOTE | 2019-02-09 14:41 | PCM.DC.SUM ---
<Maxime Delgado - Last Filed: 02/09/19 14:41> Discharge Date and Diagnosis Date of Admission: 02/09/19 Date of Discharge: 02/09/19 - Primary Discharge Diagnosis Active and Suspected Problems TIA (transient ischemic attack) (Acute) CAD with prior CABG, stents Paroxysmal afib GERD HTN HLD BPH - Secondary Discharge Diagnosis Chronic Problems Hx of CABG (Chronic) Paroxysmal A-fib (Chronic) CAD (coronary artery disease) (Chronic) GERD (gastroesophageal reflux disease) (Chronic) BPH (benign prostatic hyperplasia) (Chronic) Hyperlipidemia (Chronic) Hypertension (Chronic) Hospital Course and Treatment Imaging Results: IMAGING: RAD/Chest 1 View IMPRESSION: There is NO acute cardiopulmonary abnormality. CT/Brain/Head without Contrast IMPRESSION: Normal unenhanced CT scan of the brain. MRI/Brain without Contrast IMPRESSION: Normal unenhanced MRI of the brain. Echo: Interpretation Summary The study was technically difficult. Contrast injection was performed. Segmental dysfunction with preserved ejection fraction (see wall motion). The estimated ejection fraction is 55 %. Post operative septal motion. The left atrium is mildly enlarged. Trivial mitral valve insufficiency. Mild tricuspid valve insufficiency. Trivial pulmonic valve insufficiency. Right ventricular systolic pressure estimated to be 28 mmHg. No evidence for diastolic dysfunction. MRI/MRA Head ONLY without Contrast IMPRESSION: Normal MRA of the head MRI/MRA Neck WITH and W/O Contrast IMPRESSION: 1. Mild (20%) right carotid stenosis. 2. No left carotid stenosis. 3. Patent vertebral arteries bilaterally. Operations: None, colectomy Procedures: 2-D Echocardiogram Summary of Care Provided: Hospital course: The patient is a 69 year old M with past medical history significant for coronary artery disease with prior CABG, paroxysmal A. fib around the time of his CABG, hypertension, hyperlipidemia, who presented to the emergency room with right facial numbness. He woke up with this sensation and it was described as drooling in the right side of his mouth with numbness of the right cheek and forehead. He had no other neurologic deficits. He he came to the emergency room by squad and had a CT of the brain which was negative. He was admitted to the PCU on telemetry for stroke work-up. No events on telemetry. MRI of the brain was negative, MRA of the head and neck were as above with no significant findings. Echo was obtained with results as above, no ASD. His symptoms fully resolved while he was in the ER. As he had no further symptoms and no indications of stroke on MRI he was felt to have had a TIA. Plavix was added to his home aspirin, he is already on high-dose statin therapy. As he had a history of A. fib once in the past we recommended that he have a 30-day monitor. We plan to set up monitors for him at the time of discharge however he did not want to follow-up with her locomotive lubricating systems clerk and would prefer to arrange this through his own locomotive lubricating systems clerk with the [facility]. He was discharged home in stable condition. He should follow-up with his locomotive lubricating systems clerk within the next week, follow-up with his PCP in 1 to 2 weeks. We also advised him to follow-up with neurology as an outpatient with Dr. Blackwell, however he preferred to talk to his primary care physician about finding a neurologist within the [facility] network. He will need to have a fasting lipid panel checked as an outpatient, his A1c was checked as per stroke work-up and was 5.3. Troponin was negative. This patient was seen by Maxime Delgado PA-C under the supervision of Doctor Solis. [] - Physical Exam Vitals/I&O's: Vital Signs Temp Pulse Resp BP Pulse Ox 98.8 F 58 L 18 143/71 H 95 02/09/19 14:11 02/09/19 14:11 02/09/19 14:11 02/09/19 14:11 02/09/19 14:11 Oxygen Delivery Method Room Air Weight: 215 lb 1.6 oz Body Mass Index (BMI) 34.7 Finger Stick Blood Glucose 92 Intake and Output for Last 24 Hours 02/07/19 02/08/19 02/09/19 23:59 23:59 23:59 Intake Total 1356.67 / 1356.67 Output Total 200 / 200 Balance 1156.67 / 1156.67 General: Alert, Oriented x3, Cooperative HEENT: Atraumatic, PERRLA, EOMI, Normocephalic Neck: Supple, No JVD, Negative Carotid Bruits Lungs: Clear to auscultation, Normal air movement Cardiovascular: Regular rate, No murmurs Abdomen: Bowel Sounds Present, Soft, Non Tender Extremities: No edema, Capillary Refill Less than 3 Seconds Skin: No rashes, No breakdown Musculoskeletal: No Tenderness to Palpation of Joints or Extremities Neurological: Cranial nerves II-XII grossly intact Psych/Mental Status: Normal Affect, Appropriate Laboratory Results 02/09/19 05:30: WBC 5.3, RBC 4.85, Hgb 15.4, Hct 47.2, MCV 97.3 H, MCH 31.8, MCHC 32.6, RDW Std Deviation 43.8, RDW Coeff of Joselyn 12.2, Plt Count 179, MPV 10.3, Immature Gran % (Auto) 0.200, Neut % (Auto) 53.6, Lymph % (Auto) 32.6, [place] % (Auto) 10.3 H, Eos % (Auto) 2.6, Baso % (Auto) 0.7, Absolute Neuts (auto) 2.9, Absolute Lymphs (auto) 1.74, Nucleated RBC % 0 02/09/19 05:30: PT 12.1, INR 0.9, APTT 25.4 02/09/19 05:30: Sodium 141, Potassium 4.0, Chloride 104, Carbon Dioxide 28.0, Anion Gap 9, BUN 19 H, Creatinine 1.25, Estim Creat Clear Calc 49.62, Est GFR (MDRD) Af Amer 73, Est GFR (MDRD) Non-Af 61, BUN/Creatinine Ratio 15.2, Glucose 105, Calcium 8.7, Troponin I < 0.015 02/09/19 05:30: Hemoglobin A1c 5.3 02/09/19 05:34: POC Glucose 92 Current Medications Aspirin (Aspirin, Baby) 81 mg PO DAILY@0800 [facility] Atorvastatin Calcium (Lipitor) 80 mg PO QHS [facility] Heparin Sodium (Porcine) (Heparin Na) 5,000 unit SC Q12 [facility] Last Admin: 02/09/19 10:47 Dose: 5,000 unit Documented by: Sodium Chloride () 1,000 mls @ 100 mls/hr IV .Q10H ONE Stop: 02/09/19 15:51 Last Infusion: 02/09/19 11:19 Dose: Infused Documented by: Sodium Chloride () 1,000 mls @ 100 mls/hr IV .Q10H [facility] Last Infusion: 02/09/19 14:21 Dose: 0 mls/hr Documented by: Pantoprazole Sodium (Protonix) 20 mg PO DAILY [facility] Last Admin: 02/09/19 10:22 Dose: Not Given Documented by: Sodium Chloride () 10 - 40 ml IV UD PRN PRN Reason: SALINE FLUSH Discharge Diet: Low fat/ Low Cholesterol, 2000 mg Sodium Diet Discharge Activity: Return to Normal Activity Home Medications: Medications to take at Discharge Aspirin [Aspirin, Baby] 81 mg PO DAILY@0800 03/24/14 Omeprazole [Prilosec] 20 mg PO DAILY 03/24/14 Rosuvastatin Calcium [Crestor] 40 mg PO QHS 10/30/16 Losartan Potassium 50 mg PO DAILY 09/22/17 Metoprolol Tartrate 1 tab PO BID 09/22/17 Multivitamin [Daily Multiple Vitamin] 1 tab PO DAILY 09/22/17 Clopidogrel Bisulfate [Plavix] 75 mg PO DAILY #30 tab 02/09/19 Following Prescrptions Were Given to Patient: Clopidogrel Bisulfate [Plavix] 75 mg PO DAILY #30 tab Transmission Status: Received by [facility] [id number] Other Amb Orders: 30-Day Event Recorder [[facility]] Time Frame: 02/09/19, Location: None Selected Cardiac Holter Monitor, Set-Up [[facility]] Time Frame: 02/09/19, Location: None Selected Primary Care Physician: Jersey Knox III, MD [Primary Care Provider] - Please follow up with your Primary Care Physician in: 1 week Please Follow Up With: Blas Blackwell MD When: 2 weeks Please Follow Up With: Jersey Knox III, MD Please Follow Up With: Your own locomotive lubricating systems clerk When: within 1 week Disposition: Home Minutes spent on discharge:: 35 Patient Condition:: Stable Medical Necessity - Tobacco Use Smoking Status: Former smoker Tobacco Use: Non-smoker Meaningful Use Info Meaningful Use Diagnoses (Choose all that apply): None applicable <Rhett Ely - Last Filed: 02/09/19 15:24> Discharge Date and Diagnosis - Secondary Discharge Diagnosis Chronic Problems Hx of CABG (Chronic) Paroxysmal A-fib (Chronic) CAD (coronary artery disease) (Chronic) GERD (gastroesophageal reflux disease) (Chronic) BPH (benign prostatic hyperplasia) (Chronic) Hyperlipidemia (Chronic) Hypertension (Chronic) Hospital Course and Treatment Imaging Results: 02/09/19 08:08 Echo Complete W/ Contrast [ECHO] Routine MRA Neck WITH and W/O Contrast [MRI] Routine 02/09/19 08:08 Brain without Contrast [MRI] Routine MRA Head ONLY without Contrast [MRI] Routine Summary of Care Provided: The patient is a 69 year old M [] - Physical Exam Vitals/I&O's: Vital Signs Temp Pulse Resp BP Pulse Ox 98.8 F 58 L 18 143/71 H 95 02/09/19 14:11 02/09/19 14:11 02/09/19 14:11 02/09/19 14:11 02/09/19 14:11 Oxygen Delivery Method Room Air Weight: 215 lb 1.6 oz Body Mass Index (BMI) 34.7 Finger Stick Blood Glucose 92 Intake and Output for Last 24 Hours 02/07/19 02/08/19 02/09/19 23:59 23:59 23:59 Intake Total 1356.67 / 1356.67 Output Total 200 / 200 Balance 1156.67 / 1156.67 Laboratory Results 02/09/19 05:30: WBC 5.3, RBC 4.85, Hgb 15.4, Hct 47.2, MCV 97.3 H, MCH 31.8, MCHC 32.6, RDW Std Deviation 43.8, RDW Coeff of Joselyn 12.2, Plt Count 179, MPV 10.3, Immature Gran % (Auto) 0.200, Neut % (Auto) 53.6, Lymph % (Auto) 32.6, [place] % (Auto) 10.3 H, Eos % (Auto) 2.6, Baso % (Auto) 0.7, Absolute Neuts (auto) 2.9, Absolute Lymphs (auto) 1.74, Nucleated RBC % 0 02/09/19 05:30: PT 12.1, INR 0.9, APTT 25.4 02/09/19 05:30: Sodium 141, Potassium 4.0, Chloride 104, Carbon Dioxide 28.0, Anion Gap 9, BUN 19 H, Creatinine 1.25, Estim Creat Clear Calc 49.62, Est GFR (MDRD) Af Amer 73, Est GFR (MDRD) Non-Af 61, BUN/Creatinine Ratio 15.2, Glucose 105, Calcium 8.7, Troponin I < 0.015 02/09/19 05:30: Hemoglobin A1c 5.3 02/09/19 05:34: POC Glucose 92 Code Visit Addendum: Dr. Ely I personally examined the patient and reviewed the chart. I agree with the above. 69-year-old male with a previous history of cardiac stents which is why he is on aspirin, as well as losartan metoprolol and Crestor presents with an episode of right-sided numbness and tingling in his face with the impression that he was drooling. He had this started around 4 AM today and he presented to the ER at which point his symptoms had resolved. He was admitted for further evaluation. He underwent an MRI of his head as well as MRA of his head and neck. All 3 studies were negative for either a stroke or any intravascular narrowing that would require intervention. His echo had a normal EF and diastolic function, his LA was mildly enlarged to 4.6 cm and he did endorse an episodic h/o palpitations. Will discharge home on aspirin, plavix and continued crestor. EKG and echo did not demonstrate a.fib, however given his enlarged LA and h/o palpitations, he will have a 30 day event monitor. Depending on the outcome of that study he may need systemic anticoagulation. He would like to f/u with [facility] neurology since his PCP is in the [facility] system. OBSV E&M: [id number] Observ/hosp same date L3
== END 2019-02-09 11:31 | disposition home or self-care (01) ==
LOC: ED 06:23 → PCU 07:36
PROVIDERS: Physician Assistant; Admitting Provider Family Medicine; Emergency Provider Emergency Medicine; Family Provider Family Medicine; PCP Family Medicine; Visit Provider Family Medicine
DX: G45.9 Transient cerebral ischemic attack, unspecified (principal); I25.10 Atherosclerotic heart disease of native coronary artery without angina pectoris; I48.0 Paroxysmal atrial fibrillation; K21.9 Gastro-esophageal reflux disease without esophagitis; I10 Essential (primary) hypertension; E78.5 Hyperlipidemia, unspecified; N40.0 Benign prostatic hyperplasia without lower urinary tract symptoms; Z79.899 Other long term (current) drug therapy; Z79.82 Long term (current) use of aspirin; Z87.891 Personal history of nicotine dependence; Z95.1 Presence of aortocoronary bypass graft; E66.9 Obesity, unspecified; Z68.34 Body mass index [BMI] 34.0-34.9, adult; Z71.3 Dietary counseling and surveillance
CPT/HCPCS: 70450; 70544; 70549; 70551; 71045; 80048; 82962; 83036; 84484; 85025; 85610; 85730; 92610; 93005; 93306; 96360; 96361; 96372; 97161; 97166; 99285; A9575; J7030; Q9957; A4216; C8929

== ENCOUNTER → 2019-02-09 15:11 | Outpatient (CLI) | payer MEDICARE, OTHER, SELFPAY ==
[2019-02-09 10:08] VITALS: BMI 34.7
== END ==
PROVIDERS: Family Provider Family Medicine; PCP Family Medicine; Referring Provider Physician Assistant; Visit Provider Physician Assistant
DX: I48.0 Paroxysmal atrial fibrillation (principal); Z86.73 Personal history of transient ischemic attack (TIA), and cerebral infarction without residual deficits

== ENCOUNTER 2019-03-29 14:37 | Emergency (ER) | payer MEDICARE, OTHER, SELFPAY ==
[2019-02-09 10:08] VITALS: BMI 34.7
[2019-03-29 14:39] VITALS: BP 159/92; PULSE 98; RESP 17; TEMP 36.9; O2SAT 99; BMI 35.9
--- NOTE | 2019-03-29 14:42 | EKG12_ITS ---
Test Reason : IRR HB Blood Pressure : / mmHG Vent. Rate : 088 BPM Atrial Rate : 090 BPM P-R Int : 000 ms QRS Dur : 102 ms QT Int : 372 ms P-R-T Axes : 000 -08 017 degrees QTc Int : 450 ms Atrial fibrillation Nonspecific ST abnormality Abnormal ECG Confirmed by JAKE MELTON, ROSY ([id number]), clinical editor YASEMIN GAGNON ([id number]) on 04/02/2019 12:28:21 PM Referred By: TEO Confirmed By:ROSY JOSEPH MD
--- NOTE | 2019-03-29 15:00 | RAD_ITS ---
STUDY: X-RAY CHEST REASON FOR EXAM: Male, 69 years old. CHEST PAIN; -- CABG, H/O TIA TECHNIQUE: Single AP portable view of the chest. COMPARISON: 02/09/2019 FINDINGS: Status post median sternotomy. The lungs are clear and expanded. There is no demonstrated pleural abnormality. There is moderate cardiac enlargement. Normal mediastinum and zeyda. Normal visualized pulmonary arteries. Normal visualized aortic arch and descending thoracic aorta. Normal visualized thoracic spine. Normal visualized ribs, clavicles, and shoulders. There is no demonstrated abnormality of the visualized soft tissue structures of the upper abdomen. RAD/Chest 1 View (Portable) IMPRESSION: No active disease. Electronically Signed: Romulo Cortes MD at 15:43 EST Tel , Service support ,
--- NOTE | 2019-03-29 15:07 | EKG12_ITS ---
Test Reason : CONVERT AFIB Blood Pressure : / mmHG Vent. Rate : 072 BPM Atrial Rate : 072 BPM P-R Int : 176 ms QRS Dur : 104 ms QT Int : 406 ms P-R-T Axes : 040 -14 032 degrees QTc Int : 444 ms Normal sinus rhythm Normal ECG Confirmed by JAKE MELTON, ROSY ([id number]), avid editor YASEMIN GAGNON ([id number]) on 04/02/2019 12:28:42 PM Referred By: GIGI Confirmed By:ROSY JOSEPH MD
[2019-03-29 15:17] LABS: Absolute Lymphocyte Count 1.68 X10^3/uL (0.83-4.51); Absolute Neutrophil Count 6.4 X10^3/uL (2.0-7.7); Basophil# 0.03 X10^3/uL; Basophil% 0.3 % (0-1); Eosinophil# 0.11 X10^3/uL; Eosinophils% 1.2 % (0-5); Hematocrit 47.1 % (40-54); Hemoglobin 15.8 g/dL (13.0-16.5); Lymphocyte # 1.68 X10^3/ul (4.0); Lymphocyte % 18.2 % (19-41); Mean Corp Hgb Conc 33.5 g/dL (32-36); Mean Corpuscular Hgb 32.3 pg (27.0-32.0); Mean Corpuscular Volume 96.3 fL (80-94); Mean Platelet Vol. 10.3 fl (6.2-12.0); Monocyte# 0.97 X10^3/uL; Monocyte% 10.5 % (0-10); NRBC Flagged by Analyzer 0 % (0-5); Neutrophil # 6.41 X10^3/uL (2.7-7.7); Neutrophil % 69.4 % (47-70); Platelet Count 208 K/mm3 (150-450); RBC Distribution Width CV 12.3 % (11.6-14.6); RBC Distribution Width SD 43.9 fl (35.1-43.9); Red Blood Count 4.89 M/mm3 (4.6-6.2); White Blood Count 9.2 K/mm3 (4.4-11.0)
[2019-03-29 15:31] LABS: Anion Gap 4 (5-15); BUN 16 mg/dL (7-18); BUN/Creat Ratio 13.8 RATIO (10-20); Calcium,Total 9.3 mg/dL (8.5-10.1); Chloride 106 mmol/L (98-107); Creatinine, Serum 1.16 mg/dL (0.70-1.30); EST Glomerular Filtration Rate 66 mL/min (>60); Est Glom Filt Rate - Afr Amer 80 mL/min (>60); Estimated Creatinine Clearance 53.47 ml/min; Glucose 102 mg/dL (74-106); Potassium 3.8 mmol/L (3.5-5.1); Sodium Level 140 mmol/L (136-145)
[2019-03-29 15:59] LABS: Magnesium 2.2 mg/dL (1.6-2.6); Thyroid Stim Hormone (TSH) 2.27 uIU/mL (0.358-3.74)
[2019-03-29 16:08] VITALS: BP 113/55; PULSE 86; RESP 21; O2SAT 96
[2019-03-29 16:14] VITALS: O2SAT 97
--- NOTE | 2019-03-29 16:26 | ED.VIS.GEN ---
History of Present Illness Chief Complaint: Palpitations Informant: Patient, Significant Other Onset: Today Narrative: The patient presents the emergency department with palpitations. Half years ago the patient had quadruple bypass surgery and states that he had an episode of A. fib at that time. 2 months ago he had a TIA and up wearing a Holter monitor for 30 days. He tells me that no A. fib was found. He takes aspirin and Plavix as well as metoprolol 25 mg twice a day. Today he felt off. He states that he felt his heart beating irregularly and it concerned him so he came in. Initial EKG showed atrial fibrillation subsequent EKG showed normal sinus rhythm. He has no history of heart failure or diabetes. Does have a history of hypertension in addition to the prior TIA and coronary artery disease. At the time of his TIA he did have an echocardiogram that was essentially normal. Past Medical History - Allergies and Home Meds Allergies/Adverse Reactions: Allergies Wyqevhx-Jdu-Okc Reductase Inhibitor Adverse Reaction (Verified 03/29/19 14:39) muscle pain Primary Care Physician: Jersey Knox III, MD [Primary Care Provider] - Surgical History: angioplasty - stents, coronary bypass surgery, herniorrhaphy, tonsillectomy, - - Surgery for ruptured lumbar disc ?2 Smoking Status: Former smoker - Family History Maternal Family History: Reports: Heart Disease Paternal Family History: Reports: No pertinent history Sibling Family History: Reports: Heart Disease Review of Systems General: Denies: Chills, Fever, Sweats Eyes: Denies: Visual changes - left, Visual changes - right, Visual changes - bilaterally, Blurred vision - right, Diplopia ENT: Denies: Left ear pain, Right ear pain, Rhinorrhea, Sore throat Cardiovascular: Reports: Palpitations. Denies: Chest pain, Heart racing Respiratory: Denies: Dyspnea, Cough, Dyspnea on exertion Gastrointestinal: Denies: Abdominal pain, Nausea, Vomiting, Diarrhea, Melena, Hematochezia Genitourinary: Denies: Dysuria, Hematuria, Frequency Musculoskeletal: Denies: Back pain, Extremity Pain Skin: Denies: Rash, Wounds Neurological: Denies: Headache, Weakness, Numbness Physical Exam Vital Signs/Narrative: Vital Signs Temp Pulse Resp BP Pulse Ox 03/29/19 16:14 97 03/29/19 16:08 86 21 H 113/55 L 96 03/29/19 14:39 98.4 F 98 17 159/92 H 99 Inital Vital Signs reviewed: Yes General: Well nourished, Well developed, No Acute Distress Head: Normocephalic, Atraumatic Eyes: Perrl, EOMI ENT: Moist mucous membranes, No rhinorrhea Neck: Supple, Nontender Cardiovascular: Regular rate, Regular rhythm, No murmurs Respiratory: No distress, CTA bilaterally, Chest nontender Abdomen: Soft, Nontender, Nondistended, Normal bowel sounds Back: Nontender, Normal Inspection Extremities: Nontender, No edema Skin: Normal color, No rash Neurological: Alert, Oriented x3, Cranial nerves II-XII grossly intact, Normal Strength, Normal Sensation Psychological: Normal affect, Normal Mood Diagnostic/Tx/Re-eval - EKG Initial EKG Interpretation: Atrial Fibrillation - A. fib at a rate of 88 Follow-up EKG Interpretation: Sinus Rhythm - Sent normal sinus rhythm at a rate of 72 without ectopy - Medical Decision Making After his initial EKG he is remained in a sinus rhythm and a rate in the low 60s. Given his coronary artery disease and TIA history and now documented A. fib we are going to stop the Plavix that was started at the time of his TIA and begin anticoagulation with Eliquis. Case was discussed with Dr. Dietz and he has an appointment upcoming with him later this month. ED Disposition - Plan for ED Patient: Disposition: Home or Assisted Living Diagnosis: Atrial fibrillation Instructions: Atrial Fibrillation Prescriptions: Apixaban [Eliquis] 5 mg PO BID #74 tab Prescription Printed Referrals: Caleb Dietz MD [STAFF PHYSICIAN] - Keep Micki appointment Additional Instructions: Please discontinue your Plavix and begin Eliquis
[2019-03-29 17:27] VITALS: BP 131/63; PULSE 64; RESP 17; O2SAT 99
== END 2019-03-29 17:41 | disposition home or self-care (01) ==
PROVIDERS: Emergency Provider Emergency Medicine; Family Provider Family Medicine; PCP Family Medicine
DX: I48.91 Unspecified atrial fibrillation (principal); I25.10 Atherosclerotic heart disease of native coronary artery without angina pectoris; I10 Essential (primary) hypertension; Z79.02 Long term (current) use of antithrombotics/antiplatelets; Z79.82 Long term (current) use of aspirin; Z79.899 Other long term (current) drug therapy; Z86.73 Personal history of transient ischemic attack (TIA), and cerebral infarction without residual deficits; Z87.891 Personal history of nicotine dependence; Z95.5 Presence of coronary angioplasty implant and graft; Z95.1 Presence of aortocoronary bypass graft
CPT/HCPCS: 71045; 80048; 83735; 84443; 84484; 85025; 93005; 99284; A4216

== ENCOUNTER → 2019-06-01 16:54 | Outpatient (CLI) | payer MEDICARE, OTHER, SELFPAY ==
[2019-04-26 10:29] VITALS: BMI 36.0
--- NOTE | 2019-06-01 16:59 | CT_ITS ---
STUDY: CT ABDOMEN AND PELVIS WITH AND WITHOUT CONTRAST REASON FOR EXAM: Male, 69 years old. GROSS HEMATURIA x 4 days. Prior rt inguinal hernia repair and colon resection d/t diverticulitis. HTN. RADIATION DOSAGE (If Supplied By Facility): CTDIvol = ( 25.01 ) mGy, DLP = ( 3075.97 ) mGycm TECHNIQUE: Transaxial images were obtained from the dome of the diaphragm to the symphysis pubis without oral contrast. IV 100mL Isovue-300 was administered. Sagittal and coronal images were reconstructed. Individualized dose optimization techniques were used for this CT. COMPARISON: 03/16/2014. FINDINGS: The visualized lung bases are unremarkable. The visualized portions of the heart are within normal limits. Normal liver. Normal gallbladder and extrahepatic biliary system. Normal spleen. Normal pancreas. Normal bilateral adrenal glands. Normal right kidney. Left kidney has a nonobstructing 7 mm renal pelvic stone. No hydronephrosis. Otherwise normal left kidney. Evaluation of the GI tract is limited by absence of oral contrast. Cannot exclude stomach wall thickening. No dilated loops of bowel or evidence for obstruction. Cannot exclude segmental thickening of the [place] of the small or large bowel. Cannot exclude enteritis or colitis. Moderate diffuse fecal retention. There has been sigmoid surgery. Appendix within normal limits. Normal abdominal aorta. Normal inferior vena cava. Normal retroperitoneum. Normal urinary bladder. There is enlargement of the prostate gland with calcifications. There is a small umbilical hernia containing fat. There has been previous surgical repair of right inguinal hernia. There are diffuse degenerative changes of the visualized lumbar spine. CT/CT Abd/Pelvis W/WO Contrast IMPRESSION: There is a 7 mm left renal pelvic stone without definite obstruction. Prostate enlargement. Electronically Signed: Toby Simmons MD at 18:57 EST , Service support ,
[2019-06-01 17:15] LABS: CREATININE FINGERSTICK 1.2 mg/dL (0.70-1.30); EGFR FINGERSTICK > 60.0000 mL/min (>60)
== END ==
PROVIDERS: PCP Family Medicine; Referring Provider Registered Nurse; Visit Provider Registered Nurse
DX: R31.0 Gross hematuria (principal); Z79.01 Long term (current) use of anticoagulants
CPT/HCPCS: 74178; Q9967

== ENCOUNTER 2019-06-01 17:29 | Emergency (ER) | payer MEDICARE, OTHER, SELFPAY ==
[2019-04-26 10:29] VITALS: BMI 36.0
[2019-06-01 17:30] VITALS: BP 158/70; PULSE 62; RESP 18; TEMP 37.2; O2SAT 99; BMI 32.5
--- NOTE | 2019-06-01 17:35 | ED.RN ---
dr gentile t room immediately. epi pen at bedside. pt alert and talking. orders for benadryl.pepcid and solumedrol recieved
[2019-06-01] MEDS: DiphenhydrAMINE 50 MG/ML Syringe 25 MG IV ×2 (17:47→18:00)
[2019-06-01] MEDS: MethylPREDNISolone 125 MG/2 ML Vial 60 MG IV (17:48)
[2019-06-01 17:49] VITALS: BP 165/70; PULSE 61; RESP 18; O2SAT 99
[2019-06-01] MEDS: Famotidine 200 MG/20 ML MDV 20 MG in 0.9% Normal Saline (Pres. free 8 ML 300 MG IV (18:02)
[2019-06-01 18:03] VITALS: BP 143/75; PULSE 59; RESP 16; O2SAT 98
[2019-06-01 19:17] VITALS: BP 140/69; PULSE 61; RESP 18; O2SAT 95
--- NOTE | 2019-06-01 19:30 | ED.VISSUMM ---
- ER Visit Summary Date of Service: 06/01/19 Chief Complaint: Allergic reaction History of Present Illness: The patient is a 69 M who presents with an allergic reaction that occurred approximately 10 minutes prior to arrival. Patient was having a CT scan done when he developed some swelling of his lips after IV contrast was administered. Patient denies any difficulty breathing or difficulty swallowing. Patient states he feels like his lips are swollen twice the size that they are normally. Patient denies any history of allergies to iodine or CT dye. Patient denies any chest pain or shortness of breath. Patient denies any nausea or vomiting. Physical Examination: Vital signs are stable. Patient is afebrile. Patient is in no acute distress. Oral mucosa is pink and moist. The upper and lower lips were edematous. Skin is warm and dry. There is no urticaria noted. There are no other rashes noted. Neck is supple. Trachea is midline. There is no JVD. Heart was regular rate and rhythm. Lungs are clear and equal bilaterally. Abdomen is soft. Bowel sounds are normal. There is no tenderness. Cranial nerves II through XII are intact. There are no focal motor or sensory deficits noted. Emergency Department Course and Treatment: Patient was given Solu-Medrol 60 mg IV here. Patient was also given Benadryl 25 mg and Pepcid 20 mg initially. Patient states that he felt like his lips were improving and then started to swell again. Patient was given a repeat dose of Benadryl. Patient was feeling better after this. Patient was observed in the emergency department and had no further swelling of his lips. Patient was given a prescription for prednisone. Patient was instructed to take Benadryl as needed for any itching. Patient was instructed to follow-up with his primary care physician in 5 to 7 days. Patient was instructed return if worse in any way. Patient understood and was agreeable with the plan. All questions were answered. Disposition: Discharge home Impression: Allergic reaction This note was generated with [employer] dictation software. It may contain incorrect words, spelling, and punctuation that were not noted in review of the chart prior to signing ED Disposition - Plan for ED Patient: Disposition: Home or Assisted Living Diagnosis: Allergic reaction Instructions: ALLERGIC REACTION, Drug Prescriptions: predniSONE tablet 60 mg PO DAILY #15 tab Prescription Printed Referrals: Jersey Knox III, MD [Primary Care Provider] - 3-5 Days
[2019-06-01 20:05] VITALS: BP 141/69; PULSE 62; RESP 12; TEMP 33.3; O2SAT 92
== END 2019-06-01 20:11 | disposition home or self-care (01) ==
PROVIDERS: Emergency Provider Emergency Medicine; PCP Family Medicine
DX: T78.40XA Allergy, unspecified, initial encounter (principal); R11.0 Nausea; R31.0 Gross hematuria; I48.91 Unspecified atrial fibrillation; I25.10 Atherosclerotic heart disease of native coronary artery without angina pectoris; I10 Essential (primary) hypertension; Z79.01 Long term (current) use of anticoagulants; Z79.82 Long term (current) use of aspirin; Z79.899 Other long term (current) drug therapy; Z95.1 Presence of aortocoronary bypass graft
CPT/HCPCS: 74178; 96374; 96375; 99283; J7030; Q9967; A4216; J3490

== ENCOUNTER → 2019-10-09 06:15 | Outpatient (CLI) | payer MEDICARE, OTHER, SELFPAY ==
[2019-10-03 11:22] VITALS: BMI 35.8
--- NOTE | 2019-10-09 08:40 | STRESSREP ---
Stress Test Report Date: 10-09-2019 Procedure: Exercise tolerance test/imaging study Indications: Shortness of breath/dyspnea on exertion; CAD; PCI; CABG; PAF Consent: Per the patient Procedure: The patient exercised on a Raffy protocol for 9 minutes completing Stage III achieving a peak heart rate of 127 bpm (84 % predicted maximal heart rate) with a peak blood pressure 190/72 mmHg and a peak MET capacity of 10 METs. The baseline ECG demonstrated normal sinus rhythm. The peak exercise ECG demonstrated somatic/motion artifact with approximately [address] segment depression in leads II, III, aVF, and V4 through V6 with resolution towards baseline beginning by 1 minute in recovery. There was an isolated PVC during exercise. The functional capacity was considered good. There was no complaint of chest discomfort during exercise or recover. The examination was discontinued secondary to dyspnea. Impression: 1. Technically adequate (percent predicted maximal heart rate greater than 85%) exercise tolerance test 2. Peak exercise ECG demonstrated somatic/motion artifact with approximately [address] segment depression in leads II, III, aVF, and V4 through V6 with resolution towards baseline beginning by 1 minute in recovery 3. There were no cardiac dysrhythmias pretest, during exercise, or recovery 4. Nuclear images pending Myocardial perfusion imaging study: Technique: The patient was injected with 11.9 mCi of technetium 99m Cardiolite and subsequently rest SPECT Cardiolite nuclear imaging was obtained in the horizontal long, vertical long, and short axis views. The patient exercised on a Raffy protocol for 9 minutes completing Stage III achieving a peak heart rate of 127 bpm (84 % predicted maximal heart rate) with a peak blood pressure 190/72 mmHg and a peak MET capacity of 10 METs. The patient was injected with 34.1 mCi of technetium 99m Cardiolite and subsequently stress SPECT Cardiolite nuclear imaging was obtained in the horizontal long, vertical long, and short axis views. A gated Cardiolite study at peak stress was obtained. Interpretation: Rest and stress SPECT Cardiolite nuclear imaging status post realignment, normalization, and attenuation correction, demonstrates appearance of extracardiac/gastrointestinal tracer uptake near the inferior segments and otherwise appear to demonstrate relative uniform tracer uptake and myocardial perfusion appearing within normal limits. There is end systolic thickening and brightening. The gated Cardiolite study demonstrates myocardial thickening and inward wall motion. The reported LVEF is 72 %. Impression: 1. Rest and stress SPECT Cardiolite nuclear imaging demonstrate myocardial perfusion change appearing compatible with the effects of extracardiac/gastrointestinal tracer uptake near the inferior segments and otherwise relative uniform tracer uptake with myocardial perfusion appearing within normal limits. 2. The gated Cardiolite study reports an LVEF of 72 %. This note was generated with Ready[employer] software. It may contain incorrect words, spelling, and punctuation that were not noted in checking the note before signing.
== END ==
PROVIDERS: PCP Family Medicine; Referring Provider Internal Medicine Cardiovascular Disease; Visit Provider Internal Medicine Cardiovascular Disease
DX: R06.09 Other forms of dyspnea (principal); I25.10 Atherosclerotic heart disease of native coronary artery without angina pectoris
CPT/HCPCS: 78452; 93017; A9500; A4216

== ENCOUNTER 2020-11-22 05:26 | Emergency (ER) | payer MEDICARE, OTHER, SELFPAY ==
[2020-11-22 05:27] VITALS: BP 171/72; PULSE 69; RESP 18; TEMP 36.6; BMI 38.4
[2020-11-22 05:33] VITALS: O2SAT 96
--- NOTE | 2020-11-22 05:42 | RAD_ITS ---
STUDY: X-RAY CHEST REASON FOR EXAM: Male, 70 years old. sob TECHNIQUE: PA and lateral views of the chest. COMPARISON: 03/29/2019 FINDINGS: There are superimposed monitor leads. Stable hyperinflation. There is no focal parenchymal abnormality. There is no demonstrated pleural abnormality. Sternal cerclage wires and vascular clips are present from a prior sternotomy and coronary artery bypass graft procedure (CABG). Normal mediastinum and zeyad. Normal visualized pulmonary arteries. Normal visualized aortic arch and descending thoracic aorta. There is demineralization of the osseous structures. There are degenerative changes of the acromioclavicular joints. There is no demonstrated abnormality of the visualized soft tissue structures of the upper abdomen. RAD/Chest PA and Lateral IMPRESSION: No pulmonary edema, congestive heart failure or confluent pneumonia. Stable hyperinflation and postsurgical changes, osteopenia. Electronically Signed: Sophia Goyal MD at 7:22 EDT , Service support ,
--- NOTE | 2020-11-22 05:42 | EKG12_ITS ---
Test Reason : CP Blood Pressure : / mmHG Vent. Rate : 067 BPM Atrial Rate : 067 BPM P-R Int : 188 ms QRS Dur : 102 ms QT Int : 414 ms P-R-T Axes : 013 -03 028 degrees QTc Int : 437 ms Normal sinus rhythm Normal ECG Confirmed by JAKE MELTON, ROSY ([id number]), editorial director YASEMIN GAGNON ([id number]) on 11/24/2020 12:26:20 PM Referred By: DR ACOSTA Confirmed By:ROSY JOSEPH MD
--- NOTE | 2020-11-22 05:43 | ED.VIS.DYS ---
HPI History of Present Illness Chief Complaint: Shortness of Breath Informant: patient Onset/Context/Timing Onset: Weeks Context: gradual Narrative Narrative: Patient is a 70-year-old male with history of coronary artery disease status post quadruple bypass, proximal atrial fibrillation, GERD and hypertension presenting with shortness of breath and nausea. Patient states he has had some progressively worsening shortness of breath over the past month. He notes in the morning he has been nauseous as well. Yesterday after lunch she was very tired and took a 3-hour nap which is very unusual for him. With a constellation of nausea and shortness of breath he was concerned he could have something wrong with his heart so he came to the emergency room to be evaluated further. He denies any fever or chills. Denies any upper respiratory symptoms. He has had his Covid vaccine?[employer] in May. He denies any new swelling of his legs. Patient notes he does have a mild cough intermittently which he uses his albuterol inhaler for. He is on [facility] Medical History (Updated 11/22/20 @ 08:[address] Trina Gerard, ) Arthritis Atherosclerotic heart disease of [place] coronary artery without angina pectoris BPH (benign prostatic hyperplasia) CAD (coronary artery disease) Carpal tunnel syndrome, bilateral Chest pain Diverticulitis Essential hypertension GERD (gastroesophageal reflux disease) Hyperlipidemia Hypertension Paroxysmal A-fib Paroxysmal atrial fibrillation Postoperative atrial fibrillation TIA (transient ischemic attack) Home Medications aspirin 81 mg PO DAILY@0800 03/24/14 [History Last Taken 02/09/19] rosuvastatin 40 mg PO QHS 10/30/16 [History Last Taken 02/07/19] multivitamin 1 tab PO DAILY 09/22/17 [History Last Taken 02/09/19] metoprolol tartrate 50 mg tablet 50 mg PO BID 04/25/19 [History Last Taken Unknown] acetaminophen 325 mg capsule 325 mg PO Q6H PRN cap 04/26/19 [History Last Taken Unknown] losartan 100 mg tablet 100 mg PO DAILY 04/26/19 [History Last Taken Unknown] apixaban 5 mg tablet 5 mg PO BID #180 tab 04/27/19 [Rx Last Taken Unknown] amlodipine 2.5 mg tablet 2.5 mg PO DAILY #90 tab 04/14/20 [Rx Last Taken Unknown] ibuprofen 200 mg tablet 200 mg PO Q6H PRN 04/14/20 [History Last Taken Unknown] omeprazole 20 mg capsule,delayed release 20 mg PO 2XW cap 04/14/20 [History Last Taken Unknown] albuterol sulfate [ProAir HFA] 2 puff INHALATION Q6H PRN PRN 11/22/20 [History Last Taken Unknown] Allergy/AdvReac Type Severity Reaction Status Date / Time Iodinated Contrast Media [CT] Allergy Angioedema Verified 11/22/20 05:29 Likcfbt-Ybk-Rlh Reductase AdvReac muscle pain Verified 11/22/20 05:29 Inhibitor Family History Mother CAD (coronary artery disease) CVA (cerebral vascular accident) History of coronary artery bypass surgery Father Hypertension Brother CAD (coronary artery disease) Presence of stent in coronary artery Sister CAD (coronary artery disease) Cancer Pancreatic Sister CAD (coronary artery disease) Surgical History (Updated 11/22/20 @ 08:[address] Trina Gerard DO) History of back surgery History of colon resection History of coronary artery bypass surgery (~11/21/16) History of inguinal hernia repair History of lithotripsy (~2019) History of placement of stent in LAD coronary artery (~04/05/15) History of tonsillectomy Hx of CABG Social History Smoking Status: Former smoker how long ago did patient quit smokin alcohol intake: current alcohol intake frequency: 0-2 drinks per day Alcohol type: wine details: 1 galls of wine daily substance use type: does not use caffeine: Yes Type: coffee Number of servings: 2 ROS ROS ED Constitutional Constitutional ED: Denies fatigue or weakness Eyes Eyes: Denies blurry vision Cardiovascular Cardiovascular: Denies chest pain, orthopnea or palpitations Respiratory/Chest Respiratory/Chest: Reports cough and dyspnea; Denies dyspnea on exertion, orthopnea or sputum Gastrointestinal Gastrointestinal: Reports nausea; Denies abdominal pain or vomiting Genitourinary Genitourinary ED: Denies decreased urination or dysuria Musculoskeletal Musculoskeletal: Denies arthralgias, extremity pain or myalgias Integumentary Denies new lesions or rash Neurologic Neurologic: Denies paresthesias or weakness Psychiatric Psychiatric: Denies anxiety or depression Hematologic/Lymphatic Hematologic/Lymphatic: Denies easy bleeding or easy bruising EXAM Physical Exam Const Vital Signs: 11/22/20 05:27 11/22/20 05:33 Temperature 97.8 F Temperature Source Temporal Pulse Rate 69 Respiratory Rate 18 Respiratory Effort Short of Breath Respiratory Depth Normal Blood Pressure 171/72 H Blood Pressure Mean 105 Oxygen Delivery Method Room Air Room Air HEENT Reports TM's clear and moist mucous membranes normocephalic and atraumatic Tympanic Membrane ED: Yes TM's clear Mouth ED: Yes moist mucous membranes normal Eyes PERRL and EOMs intact bilaterally General Eye ED: Yes normal appearance of both eyes Pupil: PERRL Neck supple and no JVD Lymph Lymphatic: no lymphadenopathy noted Chest Wall inspection of chest normal and palpation of chest normal Resp normal respiratory effort and normal air movement Cardio regular rate, regular rhythm and no murmurs Peripheral Pulses: pulses 2+ throughout GI non-tender and non-distended GI Narrative: Negative Waite sign Palpation: soft; Negative for tender or guarding Back/Spine no CVA tenderness and normal to inspection Extremity normal to inspection and full ROM Neuro oriented x3, CN's II-XII intact bilaterally, moves all extremities and no focal motor deficits Sensorium / Orientation: alert Gait (Neuro): normal gait Psych mental status grossly normal and thought process normal Skin no rashes or lesions noted and no petechiae Skin Narrative: Patient is very reed-states he is outside a lot Lesions: no lesions Rashes: no rashes MDM MDM MDM Narrative Medical decision making narrative: Patient is evaluated for some worsening shortness of breath over the last month as well as nausea. He is concerned that it could be his heart as he had similar presentation when he had his quadruple bypass. Patient is well-appearing. Exam is pertinent for some mild peripheral edema but he has clear breath sounds. He has no JVD. Chest x-rays not show any fluid overload. His BNP is only mildly elevated at 102. Initial high since he troponin is 6. EKG does not show any ischemic changes. Patient be signed out to oncoming provider pending repeat troponin. If this is normal patient be discharged to follow-up with his digital strategist and PCP. Patient is agreeable with this plan of care. We will also perform ambulatory pulse ox in the emergency room given his shortness of breath. Lab Data Attestation: I reviewed the patient's lab results. Labs: Laboratory Results - last 24 hr 11/22/20 11/22/20 11/22/20 05:40 05:40 05:40 WBC 10.1 RBC 4.67 Hgb 14.7 Hct 44.9 MCV 96.1 H MCH 31.5 MCHC 32.7 RDW Std Deviation 46.4 H RDW Coeff of Joselyn 13.0 Plt Count 195 MPV 10.2 Immature Gran % (Auto) 0.300 Neut % (Auto) 81.8 H Lymph % (Auto) 9.6 L [place] % (Auto) 7.3 Eos % (Auto) 0.6 Baso % (Auto) 0.4 Absolute Neuts (auto) 8.2 H Absolute Lymphs (auto) 0.96 Nucleated RBC % 0 Sodium 136 Potassium 4.0 Chloride 104 Carbon Dioxide 27.0 Anion Gap 5 BUN 13 Creatinine 0.97 Estim Creat Clear Calc 63.03 Est GFR (MDRD) Af Amer 98 Est GFR (MDRD) Non-Af 81 BUN/Creatinine Ratio 13.4 Glucose 127 H Calcium 8.4 L Total Bilirubin 1.30 H AST 14 L ALT 21 Alkaline Phosphatase 51 Troponin I High Sens 6 B-Natriuretic Peptide 102.0 H Total Protein 6.9 Albumin 3.5 Globulin 3.4 Albumin/Globulin Ratio 1.0 Radiography Chest X-Ray - ED: 1 View, Read by ED Physician, Read by Radiologist, No Acute Disease and No Infiltrates Diagnostic Testing: Radiology Impression Chest X-Ray 11/22/20 05:42 IMPRESSION: No pulmonary edema, congestive heart failure or confluent pneumonia. Stable hyperinflation and postsurgical changes, osteopenia. Electronically Signed: Sophia Goyal MD at 7:22 EDT , Service support , Rhythm Strip Rhythm Strip: Sinus Rhythm Rate: 67 Ectopy: None EKG Initial EKG: Attestation: I personally reviewed and interpreted this EKG as follows: Interpretation: Sinus Rhythm Comments: Normal sinus rhythm at a rate of 67 Normal axis Normal intervals Normal ST segments Discharge Plan Triage Chief Complaint: Shortness of Breath Other Complaint: Chest Pain ED Provider: Trina Gerard Dx/Rx/DC Orders Clinical Impression: Dyspnea, History of coronary artery bypass surgery, Nausea Instructions: ED Dyspnea Prescriptions: No Action losartan 100 mg tablet 100 mg PO DAILY RF: 0 acetaminophen [Tylenol] 325 mg capsule 325 mg PO Q6H PRN (Reason: Pain Or Fever) RF: 0 apixaban 5 mg tablet 5 mg PO BID Qty: 180 RF: 4 ibuprofen [Advil] 200 mg tablet 200 mg PO Q6H PRN (Reason: Pain) RF: 0 amlodipine 2.5 mg tablet 2.5 mg PO DAILY Qty: 90 RF: 3 aspirin 81 MG tablet,chewable 81 mg PO DAILY@0800 RF: 0 omeprazole 20 mg capsule,delayed release(DR/EC) 20 mg PO 2XW RF: 0 rosuvastatin 10 MG tablet 40 mg PO QHS RF: 0 multivitamin 1 EACH tablet 1 tab PO DAILY RF: 0 metoprolol tartrate 50 mg tablet 50 mg PO BID RF: 0 albuterol sulfate [ProAir HFA] 90 mcg/actuation Hfa Aerosol Inhaler 2 puff INHALATION Q6H PRN PRN (Reason: Shortness Of Breath) RF: 0 Primary Care Provider: Manish Gillespie Referrals: Manish Gillespie MD [Primary Care Provider] -
[2020-11-22 05:55] LABS: Absolute Lymphocyte Count 0.96 X10^3/uL (0.83-4.51); Absolute Neutrophil Count 8.2 X10^3/uL (2.0-7.7); Basophil# 0.04 X10^3/uL; Basophil% 0.4 % (0-1); Eosinophil# 0.06 X10^3/uL; Eosinophils% 0.6 % (0-5); Hematocrit 44.9 % (40-54); Hemoglobin 14.7 g/dL (13.0-16.5); Lymphocyte # 0.96 X10^3/ul (0.83-4.51); Lymphocyte % 9.6 % (19-41); Mean Corp Hgb Conc 32.7 g/dL (32-36); Mean Corpuscular Hgb 31.5 pg (27.0-32.0); Mean Corpuscular Volume 96.1 fL (80-94); Mean Platelet Vol. 10.2 fl (6.2-12.0); Monocyte# 0.73 X10^3/uL; Monocyte% 7.3 % (0-10); NRBC Flagged by Analyzer 0 % (0-5); Neutrophil # 8.23 X10^3/uL (2.7-7.7); Neutrophil % 81.8 % (47-70); Platelet Count 195 K/mm3 (150-450); RBC Distribution Width SD 46.4 fl (35.1-43.9); Red Blood Count 4.67 M/mm3 (4.6-6.2); White Blood Count 10.1 K/mm3 (4.4-11.0)
[2020-11-22 06:15] LABS: AST(SGOT) 14 U/L (15-37); Alanine Aminotransfer ALT/SGPT 21 U/L (16-61); Albumin, Serum 3.5 g/dL (3.2-5.0); Alkaline Phosphatase 51 U/L (45-117); Anion Gap 5 (5-15); BUN 13 mg/dL (7-18); BUN/Creat Ratio 13.4 RATIO (10-20); Calcium,Total 8.4 mg/dL (8.5-10.1); Chloride 104 mmol/L (98-107); Creatinine, Serum 0.97 mg/dL (0.70-1.30); EST Glomerular Filtration Rate 81 mL/min (>60); Est Glom Filt Rate - Afr Amer 98 mL/min (>60); Estimated Creatinine Clearance 63.03 ml/min; Globulin 3.4 g/dL (2.2-4.2); Glucose 127 mg/dL (74-106); Protein, Total 6.9 g/dL (6.4-8.2); Sodium Level 136 mmol/L (136-145); Troponin-I HS 6 pg/mL (3.0-78.0)
[2020-11-22 09:38] VITALS: BP 140/70; PULSE 61; RESP 18; O2SAT 97
[2020-11-22 09:40] LABS: Troponin-I HS 6 pg/mL (3.0-78.0)
[2020-11-22 10:19] VITALS: BP 142/76; PULSE 59; RESP 17; O2SAT 98
== END 2020-11-22 10:20 | disposition home or self-care (01) ==
LOC: ED 06:15
PROVIDERS: Emergency Medicine; Emergency Provider Emergency Medicine; PCP Family Medicine
DX: R07.9 Chest pain, unspecified (principal); R06.00 Dyspnea, unspecified; I48.0 Paroxysmal atrial fibrillation; I25.10 Atherosclerotic heart disease of native coronary artery without angina pectoris; R05 Cough; R11.0 Nausea; R60.9 Edema, unspecified; I10 Essential (primary) hypertension; E78.5 Hyperlipidemia, unspecified; M19.90 Unspecified osteoarthritis, unspecified site; K21.9 Gastro-esophageal reflux disease without esophagitis; Z79.01 Long term (current) use of anticoagulants; Z79.82 Long term (current) use of aspirin; Z79.899 Other long term (current) drug therapy; Z95.1 Presence of aortocoronary bypass graft; Z86.73 Personal history of transient ischemic attack (TIA), and cerebral infarction without residual deficits; Z87.891 Personal history of nicotine dependence
CPT/HCPCS: 71046; 80053; 83880; 84484; 85025; 93005; 99284; A4216

== ENCOUNTER → 2021-12-22 | Outpatient (CLI) | payer MEDICARE, OTHER, SELFPAY ==
--- NOTE | 2021-12-22 07:57 | STRESSREP_ITS ---
Stress Test Report Date: 12-22-2021 Procedure: Exercise tolerance test/imaging study Indications: CAD; PCI; CABG; PAF Consent: Per the patient Procedure: The patient exercised on a Raffy protocol for 6 minutes and 31 seconds completing Stage II and 31 seconds of Stage III achieving a peak heart rate of 126 bpm (85% predicted maximal heart rate) with a peak blood pressure 218/70 mmHg and a peak MET capacity of 8 METs. The baseline ECG demonstrated normal sinus rhythm; poor R wave progression. The peak exercise ECG demonstrated somatic/motion artifact with no obvious ECG changes. There was a rare PVC pretest, during exercise, and recovery. The functional capacity was considered good. There was no complaint of chest discomfort during exercise or recovery. The examination was discontinued secondary to dyspnea and fatigue. Impression: 1. Technically adequate (percent predicted maximal heart rate greater than 85%) exercise tolerance test 2. Peak exercise ECG with somatic/motion artifact with no obvious ECG changes 3. There was a rare PVC pretest, during exercise, and recovery 4. Nuclear images pending Myocardial perfusion imaging study: Technique: The patient was injected with 14.5 mCi of technetium 99m Cardiolite and subsequently rest SPECT Cardiolite nuclear imaging was obtained in the horizontal long, vertical long, and short axis views. The patient exercised on a Raffy protocol for 6 minutes and 31 seconds completing Stage II and 31 seconds of Stage III achieving a peak heart rate of 126 bpm (85% predicted maximal heart rate) with a peak blood pressure 218/70 mmHg and a peak MET capacity of 8 METs. The patient was injected with 44.4 mCi of technetium 99m Cardiolite and subsequently stress SPECT Cardiolite nuclear imaging was obtained in the horizontal long, vertical long, and short axis views. A gated Cardiolite study at peak stress was obtained. Interpretation: Rest and stress SPECT Cardiolite nuclear imaging status post realignment, normalization, and attenuation correction, demonstrates the appearance of relative uniform tracer uptake and myocardial perfusion appearing within normal limits. There is end systolic thickening and brightening. The gated Cardiolite study demonstrates myocardial thickening and inward wall motion. The reported LVEF is 68%. Impression: 1. Rest and stress SPECT Cardiolite nuclear imaging demonstrate relative uniform tracer uptake and myocardial perfusion appearing within normal limits. 2. The gated Cardiolite study reports an LVEF of 68%. This note was generated with [employer] software. It may contain incorrect words, spelling, and punctuation that were not noted in checking the note before signing.
== END | disposition home or self-care (01) ==
LOC: CVS 06:08
PROVIDERS: PCP Family Medicine; Referring Provider Internal Medicine Cardiovascular Disease; Visit Provider Internal Medicine Cardiovascular Disease
DX: I25.10 Atherosclerotic heart disease of native coronary artery without angina pectoris (principal); I48.0 Paroxysmal atrial fibrillation; E78.5 Hyperlipidemia, unspecified; I10 Essential (primary) hypertension; Z95.1 Presence of aortocoronary bypass graft; Z95.5 Presence of coronary angioplasty implant and graft
CPT/HCPCS: 78452; 93017; A9500; A4216

== ENCOUNTER 2022-08-25 08:00 | Outpatient (RCR) | payer SELFPAY | END 2022-08-25 23:59 | LOC: NS 08:00 | PROVIDERS: PCP Family Medicine; Referring Provider Nurse Practitioner Family; Visit Provider Nurse Practitioner Family | DX: E66.9 Obesity, unspecified (principal); I25.10 Atherosclerotic heart disease of native coronary artery without angina pectoris; I10 Essential (primary) hypertension; E78.5 Hyperlipidemia, unspecified | CPT/HCPCS: 97802; 97803 ==

== ENCOUNTER 2022-09-16 07:25 | Outpatient (RCR) | payer SELFPAY | END 2022-09-24 23:59 | LOC: NS 07:25 | PROVIDERS: PCP Family Medicine; Referring Provider Nurse Practitioner Family; Visit Provider Nurse Practitioner Family | DX: Z71.3 Dietary counseling and surveillance (principal); I10 Essential (primary) hypertension; E66.9 Obesity, unspecified; I25.10 Atherosclerotic heart disease of native coronary artery without angina pectoris; E78.5 Hyperlipidemia, unspecified; Z68.36 Body mass index [BMI] 36.0-36.9, adult | CPT/HCPCS: 97803 ==

== ENCOUNTER 2022-10-05 07:27 | Outpatient (RCR) | payer SELFPAY | END 2022-10-25 23:59 | LOC: NS 07:27 | PROVIDERS: PCP Family Medicine; Referring Provider Nurse Practitioner Family; Visit Provider Nurse Practitioner Family | DX: Z71.9 Counseling, unspecified (principal); E66.9 Obesity, unspecified; I10 Essential (primary) hypertension; I25.10 Atherosclerotic heart disease of native coronary artery without angina pectoris; E78.5 Hyperlipidemia, unspecified; Z68.36 Body mass index [BMI] 36.0-36.9, adult | CPT/HCPCS: 97803 ==

== ENCOUNTER 2022-10-26 07:55 | Outpatient (RCR) | payer SELFPAY | END 2022-11-25 23:59 | LOC: NS 07:55 | PROVIDERS: PCP Family Medicine; Referring Provider Nurse Practitioner Family; Visit Provider Nurse Practitioner Family | DX: Z71.3 Dietary counseling and surveillance (principal); E66.9 Obesity, unspecified; Z68.35 Body mass index [BMI] 35.0-35.9, adult; I25.10 Atherosclerotic heart disease of native coronary artery without angina pectoris; I10 Essential (primary) hypertension | CPT/HCPCS: 97803 ==

== ENCOUNTER 2022-12-02 07:54 | Outpatient (RCR) | payer SELFPAY | END 2022-12-25 23:59 | LOC: NS 07:54 | PROVIDERS: PCP Family Medicine; Referring Provider Nurse Practitioner Family; Visit Provider Nurse Practitioner Family | DX: E66.9 Obesity, unspecified (principal); I25.10 Atherosclerotic heart disease of native coronary artery without angina pectoris; I10 Essential (primary) hypertension; E78.5 Hyperlipidemia, unspecified | CPT/HCPCS: 97803 ==

== ENCOUNTER 2022-12-25 13:38 | Emergency (ER) | payer MEDICARE, OTHER, SELFPAY ==
[2022-12-25 13:39] VITALS: BP 165/63; PULSE 67; RESP 16; TEMP 36.1; O2SAT 98
[2022-12-25 14:03] VITALS: BMI 35.2
--- NOTE | 2022-12-25 14:05 | CT_ITS ---
STUDY: CT BRAIN WITHOUT CONTRAST REASON FOR EXAM: Male, 72 years old. Headache after trauma RADIATION DOSAGE (If Supplied By Facility): CTDIvol = ( 44.99 ) mGy, DLP = ( 812.98 ) mGycm TECHNIQUE: Transaxial CT imaging of the brain was performed without administration of intravenous contrast material. Individualized dose optimization techniques were used for this CT. COMPARISON: 02/09/2019 FINDINGS: Normal soft tissue structures. Normal calvarium. Normal size ventricles and extra-axial spaces for the patient''s age. Normal white matter tracts of the cerebral hemispheres. Normal basal ganglia and thalami. Normal brainstem. Normal cerebellum. There is no intracranial hemorrhage. There are no findings of an acute ischemic infarction. Normal visualized paranasal sinuses. CT/Brain/Head without Contrast IMPRESSION: Age consistent changes, no acute findings Electronically Signed: Dimitri Bojorquez MD at 14:40 EDT ,
[2022-12-25 14:38] VITALS: PULSE 76; RESP 18; O2SAT 100
--- NOTE | 2022-12-25 15:21 | EDS_ITS ---
HPI History of Present Illness Chief Complaint: Head Injury Informant: patient Narrative Narrative: Was mowing. He was under a set of hard steps. He stood up and very hard hit his head on the bottom of the steps. He felt mildly dazed but was not knocked out. For a moment he felt a little tingling in his right cheek area. But that is resolved. He has minimal soreness on the head. But his concern is that he is on Eliquis. No numbness tingling. He is not dizzy now. No nausea vomiting. No other injuries. [facility] Medical History Arthritis Atherosclerotic heart disease of [place] coronary artery without angina pectoris BPH (benign prostatic hyperplasia) CAD (coronary artery disease) Carpal tunnel syndrome, bilateral Diverticulitis Essential hypertension GERD (gastroesophageal reflux disease) Hyperlipidemia Hypertension Paroxysmal A-fib Paroxysmal atrial fibrillation Postoperative atrial fibrillation TIA (transient ischemic attack) Home Medications aspirin 81 mg chewable tablet 81 mg PO DAILY@0800 03/24/14 [History Last Taken 02/09/19] rosuvastatin 10 mg tablet 40 mg PO QHS 10/30/16 [History Last Taken 02/07/19] multivitamin 1 tab PO DAILY 09/22/17 [History Last Taken 02/09/19] metoprolol tartrate 50 mg tablet 50 mg PO BID 04/25/19 [History Last Taken U nknown] acetaminophen 325 mg capsule (Tylenol) 325 mg PO Q6H PRN Pain Or Fever 04/26/19 [History Last Taken Unknown] losartan 100 mg tablet 100 mg PO DAILY 04/26/19 [History Last Taken Unknown] apixaban 5 mg tablet 5 mg PO BID #180 tabs 04/27/19 [Rx Last Taken Unknown] albuterol sulfate 90 mcg/actuation aerosol inhaler (ProAir HFA) 2 puff inhalation Q6H PRN PRN Shortness Of Breath 11/22/20 [History Last Taken Unknown] sildenafil 50 mg tablet (Viagra) 50 mg PO DAILY PRN sexual activity 02/26/21 [History Last Taken Unknown] omeprazole 20 mg capsule,delayed release 20 mg PO .3xw 12/10/21 [History Last Taken Unknown] amlodipine 2.5 mg tablet 2.5 mg PO DAILY #90 tabs 04/19/22 [Rx Last Taken Unknown] Allergy/AdvReac Type Severity Reaction Status Date / Time Iodinated Contrast Media [CT] Allergy Angioedema Verified 12/25/22 13:39 [id number]-Mky Reductase AdvReac muscle pain Verified 12/25/22 13:39 Inhibitor Family History Mother CAD (coronary artery disease) CVA (cerebral vascular accident) History of coronary artery bypass surgery Father Hypertension Brother CAD (coronary artery disease) Presence of stent in coronary artery Sister CAD (coronary artery disease) Cancer Pancreatic Sister CAD (coronary artery disease) Surgical History History of back surgery History of colon resection History of coronary artery bypass surgery (~11/21/16) History of inguinal hernia repair History of lithotripsy (~2019) History of placement of stent in LAD coronary artery (~04/05/15) History of squamous cell carcinoma excision History of tonsillectomy Hx of CABG Social History Smoking Status: Former smoker how long ago did patient quit smokin alcohol intake: current alcohol intake frequency: 0-2 drinks per day Alcohol type: wine details: 1 galls of wine daily substance use type: does not use caffeine: Yes Type: coffee Number of servings: 2 ROS ROS ED Constitutional Constitutional ED: Denies chills or fever(s) Eyes Eyes: Denies blurry vision or change in vision ENT ENT ED: Denies sore throat Cardiovascular Cardiovascular: Denies chest pain Respiratory/Chest Respiratory/Chest: Denies cough or dyspnea Gastrointestinal Gastrointestinal: Denies nausea or vomiting Musculoskeletal Musculoskeletal: Denies arthralgias, back pain or neck pain Integumentary Reports Abrasions Neurologic Neurologic: Reports headache(s); Denies paresthesias or weakness Hematologic/Lymphatic Hematologic/Lymphatic: Reports easy bleeding and easy bruising Allergic/Immunologic Allergic/Immunologic ED: Denies urticaria EXAM Physical Exam Narrative Exam Narrative: Patient is awake alert no acute distress pleasant good informant. HEENT: Does show an abrasion on the top right scalp. But no laceration. No bony step-off is felt. Neck is supple no tenderness or pain with motion. Heart does actually sound regular now. Rate is about 70. Lungs are clear. Saturations are normal at 98% on room air showing no hypoxia. Abdomen soft nontender Extremities show no injury Neurologically patient is awake alert appropriate. He has normal speech. Normal coordination and gait. Const Vital Signs: 12/25/22 13:39 12/25/22 13:51 Temperature 97 F L Temperature Source Temporal Pulse Rate 67 Respiratory Rate 16 Respiratory Effort Normal Respiratory Depth Normal Respiratory Pattern Normal Blood Pressure 165/63 H Blood Pressure Mean 97 Pulse Ox 98 Oxygen Delivery Method Room Air MDM MDM MDM Narrative Medical decision making narrative: My independent interpretation the patient's CT scan of the head shows no acute process. Final reading is age consistent changes, no acute findings. Patient is rechecked. He is awake alert appropriate. No new or progressing symptoms. I think he is appropriate for discharge. Patient has no bleeding around to getting CBC. He was not ill prior to this and I will think electrolytes are going to be needed. He is on Eliquis. I do not think there is a benefit to PT or PTT blood work. Radiography Diagnostic Testing: Clinical Impression(s) from Imaging Studies Brain CT 12/25/22 14:05 IMPRESSION: Age consistent changes, no acute findings Electronically Signed: Dimitri Bojorquez MD at 14:40 EDT , Discharge Plan Triage Chief Complaint: Head Injury ED Provider: Ronaldo Siegel Dx/Rx/DC Orders Clinical Impression: Medication induced coagulopathy, Closed head injury Instructions: ED Head Injury (Adult) Prescriptions: No Action losartan 100 mg tablet 100 mg PO DAILY acetaminophen [Tylenol] 325 mg capsule 325 mg PO Q6H PRN (Reason: Pain Or Fever) apixaban 5 mg tablet 5 mg PO BID Qty: 180 4RF sildenafil [Viagra] 50 mg tablet 50 mg PO DAILY PRN (Reason: sexual activity) Rx Instructions: administer 30 minutes to 4 hours before activity aspirin 81 MG tablet,chewable 81 mg PO DAILY@0800 Patient Comments: Blood thinner for heart health omeprazole 20 mg capsule,delayed release(DR/EC) 20 mg PO .3xw Patient Comments: Acid reflux rosuvastatin 10 MG tablet 40 mg PO QHS multivitamin 1 EACH tablet 1 tab PO DAILY metoprolol tartrate 50 mg tablet 50 mg PO BID albuterol sulfate [ProAir HFA] 90 mcg/actuation Hfa Aerosol Inhaler 2 puff INHALATION Q6H PRN PRN (Reason: Shortness Of Breath) amlodipine 2.5 mg tablet 2.5 mg PO DAILY Qty: 90 3RF Primary Care Provider: Manish Gillespie Referrals: Manish Gillespie MD [Primary Care Provider] - 3-5 Days if not improving Disposition Disposition: Home, Self Care
[2022-12-25 15:34] VITALS: BP 136/67
== END 2022-12-25 15:35 | disposition home or self-care (01) ==
PROVIDERS: Emergency Provider Emergency Medicine; PCP Family Medicine; Visit Provider Emergency Medicine
DX: S09.90XA Unspecified injury of head, initial encounter (principal); I10 Essential (primary) hypertension; Z87.891 Personal history of nicotine dependence; I25.10 Atherosclerotic heart disease of native coronary artery without angina pectoris; E78.5 Hyperlipidemia, unspecified; W22.09XA Striking against other stationary object, initial encounter
CPT/HCPCS: 70450; 99282

== ENCOUNTER 2023-03-01 07:37 | Outpatient (RCR) | payer SELFPAY | END 2023-03-27 23:59 | LOC: NS 07:37 | PROVIDERS: PCP Family Medicine; Referring Provider Nurse Practitioner Family; Visit Provider Nurse Practitioner Family | DX: Z71.3 Dietary counseling and surveillance (principal); E66.9 Obesity, unspecified; I25.10 Atherosclerotic heart disease of native coronary artery without angina pectoris; I10 Essential (primary) hypertension; E78.5 Hyperlipidemia, unspecified; Z68.33 Body mass index [BMI] 33.0-33.9, adult | CPT/HCPCS: 97803 ==

== ENCOUNTER 2023-06-14 07:23 | Outpatient (RCR) | payer SELFPAY | END 2023-06-26 23:59 | LOC: NS 07:23 | PROVIDERS: PCP Family Medicine; Referring Provider Nurse Practitioner Family; Visit Provider Nurse Practitioner Family | DX: Z71.3 Dietary counseling and surveillance (principal); E66.9 Obesity, unspecified; I25.10 Atherosclerotic heart disease of native coronary artery without angina pectoris; I10 Essential (primary) hypertension; E78.5 Hyperlipidemia, unspecified; Z68.34 Body mass index [BMI] 34.0-34.9, adult | CPT/HCPCS: 97803 ==

== ENCOUNTER 2023-10-08 00:44 | Emergency (ER) | payer MEDICARE, OTHER, SELFPAY ==
[2023-10-08] VITALS (7 sets, daily range): BP systolic 91–183; BP diastolic 45–133; PULSE 83–89; RESP 16–20; TEMP 36.6–37.2; O2SAT 91–96; BMI 33.2
[2023-10-08 01:17] LABS: Absolute Lymphocyte Count 1.49 X10^3/uL (0.83-4.51); Basophil# 0.03 X10^3/uL; Basophil% 0.3 % (0-1); Eosinophil# 0.11 X10^3/uL; Hemoglobin 14.4 g/dL (13.0-16.5); Lymphocyte # 1.49 X10^3/ul (0.83-4.51); Lymphocyte % 13.4 % (19-41); Mean Corp Hgb Conc 32.7 g/dL (32-36); Mean Corpuscular Hgb 31.7 pg (27.0-32.0); Mean Corpuscular Volume 96.9 fL (80-94); Mean Platelet Vol. 9.9 fl (6.2-12.0); Monocyte# 0.39 X10^3/uL; Monocyte% 3.5 % (0-10); NRBC Flagged by Analyzer 0 % (0-5); Neutrophil # 9.04 X10^3/uL (2.7-7.7); Neutrophil % 81.4 % (47-70); Platelet Count 183 K/mm3 (150-450); RBC Distribution Width SD 46.6 fl (35.1-43.9); Red Blood Count 4.54 M/mm3 (4.6-6.2); White Blood Count 11.1 K/mm3 (4.4-11.0)
[2023-10-08 01:21] LABS: Bacteria 0 SEEN /hpf (None Seen); Mucous, Urine 0 SEEN /hpf (<or=2+); Squamous Epithelial Cells - UA 0 SEEN /hpf (0-5); White Blood Cells 0 SEEN /hpf (0-5)
[2023-10-08 01:23] LABS: Color, Urine Yellow (Yellow); Glucose, Dipstick Normal (Normal); Ketone-Dipstick Negative (Negative); Leukocyte Esterase-Dipstick Negative /ul (Negative); Nitrite-Dipstick Negative (Negative); Occult Blood-Urine 10 /ul (Negative); Protein-Dipstick Negative (Negative); Specific Gravity, Urine 1.015 (1.002-1.030); Urine Bilirubin Dipstick Negative (Negative); Urine Clarity Clear (Clear); Urine Urobilinogen Normal (Normal)
[2023-10-08 01:35] LABS: Red Blood Cells-Urine 0-5 SEEN /hpf (0-5)
[2023-10-08 01:35] LABS: ALB/GLOB Ratio 1.2 RATIO (0.9-2.4); AST(SGOT) 15 U/L (15-37); Alanine Aminotransfer ALT/SGPT 21 U/L (16-61); Albumin, Serum 3.5 g/dL (3.2-5.0); Alkaline Phosphatase 54 U/L (45-117); Anion Gap 5 (5-15); BUN 19 mg/dL (7-18); BUN/Creat Ratio 19.1 RATIO (10-20); Calcium,Total 8.7 mg/dL (8.5-10.1); Chloride 106 mmol/L (98-107); Creatinine, Serum 0.99 mg/dL (0.70-1.30); EST Glomerular Filtration Rate 78 mL/min (>60); Est Glom Filt Rate - Afr Amer 95 mL/min (>60); Estimated Creatinine Clearance 77.06 ml/min; Glucose 127 mg/dL (74-106); Lipase 64 U/L (13-75); Potassium 3.9 mmol/L (3.5-5.1); Protein, Total 6.5 g/dL (6.4-8.2); Sodium Level 139 mmol/L (136-145)
[2023-10-08] MEDS: 0.9% Normal Saline (1000mL) 1,000 ML 999 ML IV (02:28)
[2023-10-08] MEDS: Ondansetron 4 MG/2 ML Vial IV (02:28)
--- NOTE | 2023-10-08 02:40 | CT_ITS ---
INDICATION: right flank pain COMPARISON: None. A radiation dose optimization technique was used for this scan. RADIATION DOSAGE (If Supplied By Facility): CTDIvol/DLP = ( 17.15 ) / ( 861.01 ) mGy/mGycm FINDINGS: Noncontrast serial CT axial images through the abdomen and pelvis with coronal and sagittal reformatted series. PANCREAS: No peripancreatic fat stranding. BOWEL/MESENTERY: No dilated bowel loops. No significant free fluid. No free air. Colonic diverticulosis without focus of diverticulitis. GALLBLADDER: Dependent cholelithiasis without pericholecystic fat stranding. LIVER/STOMACH: No obvious abnormality. URINARY COLLECTING SYSTEM/ KIDNEYS: No obstructing ureteral calculus. No significant renal parenchymal abnormality. ABDOMINAL WALL: There is hazy fat stranding of the right inguinal region with associated borderline adenopathy measuring up to 15 mm in the short axis. This hazy fat stranding tracks along the external iliac chain. In addition, there is adjacent right inguinal hernia mesh anchors although these are not associated with inflammatory change. APPENDIX: Normal caliber gas containing appendix. LUNG BASES: Unremarkable. BONES: Unremarkable for age. CT/Abdomen/Pelvis without Cont IMPRESSION: Hazy fat stranding of the right inguinal region with associated borderline adenopathy measuring up to 15 mm in the short axis. This hazy fat stranding tracks along the external iliac chain. This may represent postprocedure change from recent vascular access attempt or other inflammatory process, incompletely imaged. In addition, there is adjacent right inguinal hernia mesh anchors although these are not associated with inflammatory change. Electronically Signed: Greg Zhou MD at 4:00 EDT ,
[2023-10-08] MEDS: Morphine 4 MG/ML Syringe IV (03:12)
--- NOTE | 2023-10-08 03:48 | EDS_ITS ---
HPI HPI - GI History of Present Illness Chief Complaint: Abd Pain Narrative Narrative: 73 male presenting with nausea/vomiting. He states he does not have any pain associated with it. He ate some cod for dinner and he had some dressing on the side. He presents with his life partner who is also a male. He states he ate the fish to but he did not have the dressing. The patient has not had any diarrhea. No fevers or chills. PFSH [facility] Medical History Arthritis Carpal tunnel syndrome, bilateral Paroxysmal atrial fibrillation Diverticulitis Postoperative atrial fibrillation Essential hypertension Atherosclerotic heart disease of [place] coronary artery without angina pectoris Paroxysmal A-fib TIA (transient ischemic attack) CAD (coronary artery disease) GERD (gastroesophageal reflux disease) BPH (benign prostatic hyperplasia) Hyperlipidemia Hypertension Home Medications ?Medication ?Instructions ?Recorded ?Last Taken ?Type aspirin 81 mg chewable tablet 81 mg PO DAILY@0800 03/24/14 02/09/19 History multivitamin 1 tab PO DAILY 09/22/17 02/09/19 History metoprolol tartrate 50 mg tablet 50 mg PO BID 04/25/19 Unknown History acetaminophen 325 mg capsule 325 mg PO Q6H PRN Pain Or Fever 04/26/19 Unknown History (Tylenol) losartan 100 mg tablet 100 mg PO DAILY 04/26/19 Unknown History apixaban 5 mg tablet 5 mg PO BID #180 tabs 04/27/19 Unknown Rx albuterol sulfate 90 mcg/actuation 2 puff inhalation Q6H PRN PRN 11/22/20 Unknown History aerosol inhaler (ProAir HFA) Shortness Of Breath sildenafil 50 mg tablet (Viagra) 50 mg PO DAILY PRN sexual activity 02/26/21 Unknown History omeprazole 20 mg capsule,delayed 20 mg PO .3xw 12/10/21 Unknown History release rosuvastatin 10 mg tablet 40 mg PO QHS 03/11/23 Unknown History amlodipine 2.5 mg tablet 2.5 mg PO DAILY #90 tabs 07/04/23 Unknown Rx hydrocodone-acetaminophen 5-325mg 1 tab PO Q6H PRN PRN Pain 3 days 10/08/23 Unknown Rx 5mg-325mg #10 TABLETS ondansetron 4 mg disintegrating 4 mg PO Q8H PRN PRN Nausea #10 tabs 10/08/23 Unknown Rx tablet tamsulosin 0.4 mg capsule 0.4 mg PO QHS 10/08/23 Unknown History Allergy/AdvReac Type Severity Reaction Status Date / Time Iodinated Contrast Media (CT) Allergy Angioedema Verified 03/11/23 09:08 [id number] Reductase AdvReac muscle pain Verified 03/11/23 09:08 Inhibitor (Drbjbph-Zub-Mrs Reductase Inhibitor) Family History Mother CAD (coronary artery disease) CVA (cerebral vascular accident) History of coronary artery bypass surgery Father Hypertension Brother CAD (coronary artery disease) Presence of stent in coronary artery Sister CAD (coronary artery disease) Cancer Pancreatic Sister CAD (coronary artery disease) Surgical History History of squamous cell carcinoma excision History of lithotripsy (~2019) History of colon resection History of tonsillectomy History of back surgery History of inguinal hernia repair History of placement of stent in LAD coronary artery (~04/05/15) History of coronary artery bypass surgery (~11/21/16) Hx of CABG Social History Smoking Status: Former smoker how long ago did patient quit smokin alcohol intake: current alcohol intake frequency: 0-2 drinks per day Alcohol type: wine details: 1 galls of wine daily substance use type: does not use caffeine: Yes Type: coffee Number of servings: 2 ROS ROS ED Constitutional Constitutional ED: Denies chills, fever(s) or sweats Eyes Eyes: Denies blurry vision or change in vision ENT ENT ED: Denies ear pain or sore throat Cardiovascular Cardiovascular: Denies chest pain, palpitations or racing heartbeat Respiratory/Chest Respiratory/Chest: Denies cough, dyspnea or sputum Gastrointestinal Gastrointestinal: Reports nausea and vomiting; Denies abdominal pain, constipation or diarrhea Genitourinary Genitourinary ED: Denies dysuria, hematuria or urinary frequency Musculoskeletal Musculoskeletal: Denies arthralgias, myalgias or neck pain Integumentary Denies abscess, Abrasions or rash Neurologic Neurologic: Denies headache(s), paresthesias or weakness Psychiatric Psychiatric: Denies anxiety, depression, suicidal ideation or suicidal thoughts Endocrine Endocrinology: Denies polydipsia or polyuria EXAM Physical Exam Const Vital Signs: 10/08/23 00:46 10/08/23 00:53 10/08/23 02:44 Temperature 98.9 F 98.9 F Temperature Source Oral Temporal Pulse Rate 89 89 89 Respiratory Rate 18 20 H 18 Blood Pressure 167/133 H 183/88 H 107/45 L Blood Pressure Mean 144 119 65 Pulse Ox 96 96 96 Oxygen Delivery Method Room Air Room Air Room Air 10/08/23 04:00 10/08/23 05:23 Temperature Temperature Source Pulse Rate 87 88 Respiratory Rate 16 18 Blood Pressure 91/47 L 106/48 L Blood Pressure Mean 61 67 Pulse Ox 96 92 Oxygen Delivery Method Room Air Room Air Positive well nourished General Appearance ED: NAD; Negative for pallor HEENT Reports moist mucous membranes normocephalic Eyes PERRL and EOMs intact bilaterally Resp normal respiratory effort Cardio regular rate and regular rhythm Neuro CN's II-XII intact bilaterally Sensorium / Orientation: alert, oriented to person, oriented to place and oriented to time Motor Exam: strength 5/5 throughout Psych mental status grossly normal Skin General Skin Exam: Negative for jaundice or pallor MDM MDM MDM Narrative Medical decision making narrative: Patient presenting with nausea his abdominal exam is benign. Initially I gave him some Zofran and some IV fluids. Differential gastroenteritis, food poisoning, viral syndrome. CBC was obtained to assess white blood cell count, hemoglobin, platelets. CMP to assess liver function, renal function, electrolytes, glucose. Lipase to assess for pancreatitis. Urinalysis to assess for UTI or occult blood. After the patient was medicated he started to have right flank pain. He states he has a history of sciatica but where he is pointing to his his right lower back. He states he has a history of kidney stones and had a left patient was given morphine and I will obtain pelvis without contrast. CT of the abdomen pelvis shows Hazy fat stranding of the right inguinal region with associated borderline adenopathy measuring up to 15 mm in the short axis. This hazy fat stranding tracks along the external iliac chain. I reviewed the CT with Dr. Ngo. He did have concern about the lymph nodes possibly being necrotic. He recommended that the patient follow-up with him as an outpatient for biopsy of the right inguinal region. Patient is amenable to this. He is given [place] and Zofran for home. Return precautions were discussed. Impression: 1. Nausea/vomiting 2. Right flank pain 3. Inguinal lymphadenopathy Lab Data Attestation: I reviewed the patient's lab results. Labs: Laboratory Results - last 24 hr 10/08/23 10/08/23 01:09 01:11 WBC 11.1 H RBC 4.54 L Hgb 14.4 Hct 44.0 MCV 96.9 H MCH 31.7 MCHC 32.7 RDW Std Deviation 46.6 H RDW Coeff of Joselyn 13.0 Plt Count 183 MPV 9.9 Immature Gran % (Auto) 0.400 Neut % (Auto) 81.4 H Lymph % (Auto) 13.4 L Dukes % (Auto) 3.5 Eos % (Auto) 1.0 Baso % (Auto) 0.3 Absolute Neuts (auto) 9.0 H Absolute Lymphs (auto) 1.49 Nucleated RBC % 0 Sodium 139 Potassium 3.9 Chloride 106 Carbon Dioxide 28.0 Anion Gap 5 BUN 19 H Creatinine 0.99 Estim Creat Clear Calc 77.06 Est GFR (MDRD) Af Amer 95 Est GFR (MDRD) Non-Af 78 BUN/Creatinine Ratio 19.1 Glucose 127 H Calcium 8.7 Total Bilirubin 0.50 AST 15 ALT 21 Alkaline Phosphatase 54 Total Protein 6.5 Albumin 3.5 Globulin 3.0 Albumin/Globulin Ratio 1.2 Lipase 64 Urine Color Yellow Urine Clarity Clear Urine pH 6.0 Ur Specific [place] 1.015 Urine Protein Negative Urine Glucose (UA) Normal Urine Ketones Negative Urine Occult Blood 10 H Urine Nitrite Negative Urine Bilirubin Negative Urine Urobilinogen Normal Ur Leukocyte Esterase Negative Urine RBC 0-5 SEEN Urine WBC 0 SEEN Ur Squamous Epith Cells 0 SEEN Urine Bacteria 0 SEEN Urine Mucus 0 SEEN Radiography Diagnostic Testing: Clinical Impression(s) from Imaging Studies Abdomen/Pelvis CT 10/08/23 02:40 IMPRESSION: Hazy fat stranding of the right inguinal region with associated borderline adenopathy measuring up to 15 mm in the short axis. This hazy fat stranding tracks along the external iliac chain. This may represent postprocedure change from recent vascular access attempt or other inflammatory process, incompletely imaged. In addition, there is adjacent right inguinal hernia mesh anchors although these are not associated with inflammatory change. Electronically Signed: Greg Zhou MD at 4:00 EDT , Discharge Plan Triage Chief Complaint: Abd Pain ED Provider: Catrachito Moreno Dx/Rx/DC Orders Clinical Impression: Inguinal adenopathy Instructions: Lymphadenopathy Prescriptions: New hydrocodone-acetaminophen 5-325 mg tablet 1 tab PO Q6H PRN PRN (Reason: Pain) 3 Days Qty: 10 0RF ondansetron 4 mg tablet,disintegrating 4 mg PO Q8H PRN PRN (Reason: Nausea) Qty: 10 0RF No Action losartan 100 mg tablet 100 mg PO DAILY acetaminophen [Tylenol] 325 mg capsule 325 mg PO Q6H PRN (Reason: Pain Or Fever) apixaban 5 mg tablet 5 mg PO BID Qty: 180 4RF sildenafil [Viagra] 50 mg tablet 50 mg PO DAILY PRN (Reason: sexual activity) Rx Instructions: administer 30 minutes to 4 hours before activity aspirin 81 MG tablet,chewable 81 mg PO DAILY@0800 Patient Comments: Blood thinner for heart health omeprazole 20 mg capsule,delayed release(DR/EC) 20 mg PO .3xw Patient Comments: Acid reflux rosuvastatin 10 mg tablet 40 mg PO QHS multivitamin 1 EACH tablet 1 tab PO DAILY metoprolol tartrate 50 mg tablet 50 mg PO BID albuterol sulfate [ProAir HFA] 90 mcg/actuation Hfa Aerosol Inhaler 2 puff INHALATION Q6H PRN PRN (Reason: Shortness Of Breath) tamsulosin 0.4 mg capsule 0.4 mg PO QHS amlodipine 2.5 mg tablet 2.5 mg PO DAILY Qty: 90 3RF Primary Care Provider: Manish Gillespie Referrals: Greg Arteaga MD [Med Staff - Active Staff] - 3-5 Days Manish Gillespie MD [Primary Care Provider] - Print Language: Algerian Disposition Disposition: Home, Self Care
== END 2023-10-08 07:35 | disposition home or self-care (01) ==
PROVIDERS: Emergency Provider Student in an Organized Health Care Education/Training Program; PCP Family Medicine; Visit Provider Student in an Organized Health Care Education/Training Program
DX: R59.0 Localized enlarged lymph nodes (principal); R10.9 Unspecified abdominal pain; Z87.891 Personal history of nicotine dependence; I10 Essential (primary) hypertension; I25.10 Atherosclerotic heart disease of native coronary artery without angina pectoris; E78.5 Hyperlipidemia, unspecified; R11.2 Nausea with vomiting, unspecified
CPT/HCPCS: 99284; 74176; 80053; 81001; 83690; 85025; A4216; J2405

== ENCOUNTER 2023-10-09 08:09 | Inpatient (IN) | payer MEDICARE, OTHER, SELFPAY ==
[2023-10-09] VITALS (14 sets, daily range): BP systolic 109–145; BP diastolic 49–96; PULSE 64–97; RESP 14–24; TEMP 36.3–38.7; O2SAT 94–100; BMI 36.6; BMI 34.4
--- NOTE | 2023-10-09 08:26 | VDLE_ITS ---
Reason For Study: Pain RLE RIGHT LEFT GSV is normal. CFV is compressible, spontaneous, phasic, CFV is compressible, spontaneous, phasic, competent, and demonstrates normal competent and demonstrates normal augmentation. augmentation. FV is compressible, spontaneous, phasic, competent and demonstrates normal augmentation. POP V is compressible, spontaneous, phasic, competent and demonstrates normal augmentation. T/P Trunk is compressible. PTV is compressible. RT PerV is compressible. Lymph node noted Rt Groin measuring 3.59cm x 1.33cm. Procedure This is a venous duplex using B-mode, color flow and spectral Doppler. Exam performed portable in ED. A preliminary report was called and/or faxed to Dr. Colon. VL/Venous Duplex US, Unilateral Interpretation Summary Deep veins of the right lower extremity are patent and compressible segmentally . There is no evidence of right lower extremity deep vein thrombosis. The right great sapheno us vein appears patent and compressible segmentally. Prominent right inguinal lymph node Ordering Physician: Francisco Colon Referring Physician: Manish Gillespie Performed By: Hortencia Johnson, CHIARA, RVT
--- NOTE | 2023-10-09 08:28 | EDS_ITS ---
HPI History of Present Illness Chief Complaint: Lower Extremity Injury Narrative Narrative: 33-year-old male past medical history of hypertension, coronary artery disease, hyperlipidemia presents with his partner because of pain and swelling of his right lower leg that he noticed yesterday morning. Of note, they state that they were seen in the emergency department because he was having nausea and vomiting. He had a CT of the abdomen and pelvis which did show right inguinal lymph nodes. He is supposed to follow-up with surgeon for biopsy because of the right inguinal lymphadenopathy. After they left in the morning, patient noticed increased swelling of the right lower extremity, and redness to his right lower leg. He denies any fevers or chills. He states that about the same time he thought he was having problems with bladder control in the sense that he is leaking urine. He states he still has a sensation to urinate, but when he gets to the bathroom, he is able to urinate, but then might dribble afterwards. He denies any saddle anesthesia, no midline back pain. [facility] Medical History Arthritis Carpal tunnel syndrome, bilateral Paroxysmal atrial fibrillation Diverticulitis Postoperative atrial fibrillation Essential hypertension Atherosclerotic heart disease of [place] coronary artery without angina pectoris Paroxysmal A-fib TIA (transient ischemic attack) CAD (coronary artery disease) GERD (gastroesophageal reflux disease) BPH (benign prostatic hyperplasia) Hyperlipidemia Hypertension Home Medications ?Medication ?Instructions ?Recorded ?Last Taken ?Type aspirin 81 mg chewable tablet 81 mg PO DAILY@0800 03/24/14 02/09/19 History multivitamin 1 tab PO DAILY 09/22/17 02/09/19 History metoprolol tartrate 50 mg tablet 50 mg PO BID 04/25/19 Unknown History acetaminophen 325 mg capsule 325 mg PO Q6H PRN Pain Or Fever 04/26/19 Unknown History (Tylenol) losartan 100 mg tablet 100 mg PO DAILY 04/26/19 Unknown History apixaban 5 mg tablet 5 mg PO BID #180 tabs 04/27/19 Unknown Rx albuterol sulfate 90 mcg/actuation 2 puff inhalation Q6H PRN PRN 11/22/20 Unknown History aerosol inhaler (ProAir HFA) Shortness Of Breath sildenafil 50 mg tablet (Viagra) 50 mg PO DAILY PRN sexual activity 12/02/21 Unknown History omeprazole 20 mg capsule,delayed 20 mg PO .3xw 12/10/21 Unknown History release rosuvastatin 10 mg tablet 40 mg PO QHS 03/11/23 Unknown History amlodipine 2.5 mg tablet 2.5 mg PO DAILY #90 tabs 07/04/23 Unknown Rx hydrocodone-acetaminophen 5-325mg 1 tab PO Q6H PRN PRN Pain 3 days 10/08/23 Unknown Rx 5mg-325mg #10 TABLETS ondansetron 4 mg disintegrating 4 mg PO Q8H PRN PRN Nausea #10 tabs 10/08/23 Unknown Rx tablet tamsulosin 0.4 mg capsule 0.4 mg PO QHS 10/08/23 Unknown History Allergy/AdvReac Type Severity Reaction Status Date / Time Iodinated Contrast Media (CT) Allergy Angioedema Verified 10/09/23 08:13 Xsallth-LXH-QwY Reductase AdvReac muscle pain Verified 10/09/23 08:13 Inhibitor (Prrpfdw-Jin-Igq Reductase Inhibitor) Family History Mother CAD (coronary artery disease) CVA (cerebral vascular accident) History of coronary artery bypass surgery Father Hypertension Brother CAD (coronary artery disease) Presence of stent in coronary artery Sister CAD (coronary artery disease) Cancer Pancreatic Sister CAD (coronary artery disease) Surgical History History of squamous cell carcinoma excision History of lithotripsy (~2019) History of colon resection History of tonsillectomy History of back surgery History of inguinal hernia repair History of placement of stent in LAD coronary artery (~04/05/15) History of coronary artery bypass surgery (~11/21/16) Hx of CABG Social History Smoking Status: Former smoker how long ago did patient quit smokin alcohol intake: current alcohol intake frequency: 0-2 drinks per day Alcohol type: wine details: 1 galls of wine daily substance use type: does not use caffeine: Yes Type: coffee Number of servings: 2 ROS ROS ED ROS Narrative Constitutional: No fever, no chills. HEENT: No sore throat. No neck pain. No loss of vision. No rhinorrhea. Cardiovascular: No chest pain. No palpitations. No pedal edema. Respiratory: No cough, no shortness of breath. Abdominal: No abdominal pain. No nausea. No vomiting. Genitourinary: Positive dysuria. No hematuria. Bilateral flank pain, controlled with hydrocodone/acetaminophen. Musculoskeletal: No myalgias. No arthralgias. Neurologic: No headaches. No dizziness. No lightheadedness. Skin: No rash. Positive redness to right lower extremity, lower portion. Psychiatric: No depression. No anxiety. EXAM Physical Exam Narrative Exam Narrative: Afebrile. Vital signs noted. Regular rate and rhythm. Lungs clear to auscultation bilaterally. Abdomen soft nontender with normal active bowel sounds. No vertebral point tenderness or bony step-off of spine, no tenderness. No CVA tenderness to percussion. Mild tenderness to palpation right inguinal area with right inguinal lymphadenopathy. Inspection of the right lower extremity does reveal mild swelling in the right lower extremity with erythema in the lower portion of the leg. Palpable dorsalis pedis pulse, right. Full range of motion of joints including knee. Positive flexion and extension. Const Vital Signs: 10/09/23 08:10 10/09/23 08:12 10/09/23 09:12 Temperature 98 F 97.4 F L 97.4 F L Temperature Source Temporal Temporal Temporal Pulse Rate 68 97 74 Respiratory Rate 16 16 20 H Blood Pressure 135/55 H 134/52 H 124/53 H Blood Pressure Mean 81 79 76 Pulse Ox 100 97 97 Oxygen Delivery Method Room Air Room Air Room Air 10/09/23 10:00 10/09/23 10:09 Temperature 101.6 F H 101.6 F H Temperature Source Oral Temporal Pulse Rate 80 80 Respiratory Rate 20 H 20 H Blood Pressure 137/54 H 137/54 H Blood Pressure Mean 81 81 Pulse Ox 94 94 Oxygen Delivery Method Room Air Room Air MDM MDM MDM Narrative Medical decision making narrative: I reviewed the patient's prior records. He does have an allergy to contrast. I reviewed the CT report which shows 15 mm right inguinal lymphadenopathy. Dr. Moreno had discussed this with Dr. Arteaga and there was concern and review that they may be necrotic. Regarding his right lower extremity, and the differential would be DVT as he is describing medial thigh pain as well, and has had swelling in circumferential redness to the lower portion. However, he is on Eliquis already for atrial fibrillation. He could have more of a cellulitis, which may be the reason why they found an inguinal lymphadenopathy on his previ ous CT scan. Regarding his dysuria and urinary problem, I have low concern for cauda equina because he has no other red flag signs, no saddle anesthesia, he is able to ambulate to the room in the ED, and pain does not radiate to his lower extremities. And he is not having back pain, he states yesterday was more bilateral flank pain. I do not feel that he requires repeat CT imaging as it was within the last 48 hours. He may have more of an overflow incontinence with dribbling as in review of his problem list he also has BPH. Ultrasound will be obtained to rule out DVT. Additionally, I will repeat his laboratory work and include a lactic acid. In review of his laboratory work when compared to prior, he has an elevated white count of 17.1, up from 11. Hemoglobin normal at 13.4 today, hematocrit 41.3, platelet count 150. Sodium dropped to 133 with acute kidney injury with a BUN of 28 and creatinine 1.4. Glucose is elevated at 137 but anion gap normal at 6 so I doubt diabetic keto acidosis. LFTs are grossly unremarkable. Urinalysis shows WBCs 5-10 with 1+ bacteria. This was sent for culture. While in the emergency department during his workup, patient had elevated temperature of 101.6 ?F. He was administered Tylenol 1 g orally. He does have an elevated lactic acid of 2.6. Given his acute kidney injury, leukocytosis, now fever, in combination with the source of infection suspected to be his right lower extremity, he was started on Unasyn and blood culture sent. Feel he is meeting more SIRS/sepsis criteria. Will I do not have the results of the ultrasound currently, he is already being treated as he is taking his Eliquis. I feel that he can be admitted and treated with antibiotics. Patient discussed with Dr. Cantor for admission to the PCU. He is in stable condition. History & Record Review Discussion w/independent historian: Patient Lab Data Attestation: I reviewed the patient's lab results. Labs: Laboratory Results - last 24 hr 10/09/23 10/09/23 08:43 09:03 WBC 17.1 H RBC 4.21 L Hgb 13.4 Hct 41.3 MCV 98.1 H MCH 31.8 MCHC 32.4 RDW Std Deviation 49.4 H RDW Coeff of Joselyn 13.6 Plt Count 150 MPV 10.9 Neut % (Auto) Not Reportable Absolute Neuts (auto) 15.7 H Absolute Lymphs (auto) 0.17 L Total Counted 100 Neutrophils % (Manual) 73 H Band Neutrophils % 19 H Lymphocytes % (Manual) 1 L Monocytes % (Manual) 1 Eosinophils % (Manual) 1 Metamyelocytes % 4 H Myelocytes % 1 H Diff Path Review May foll Platelet Estimate ADEQUATE RBC Morphology NORM C+C Sodium 133 L Potassium 4.0 Chloride 101 Carbon Dioxide 26.0 Anion Gap 6 BUN 28 H Creatinine 1.40 H Estim Creat Clear Calc 51.99 Est GFR (MDRD) Af Amer 64 Est GFR (MDRD) Non-Af 53 L BUN/Creatinine Ratio 20.0 Glucose 137 H Lactic Acid 2.6 H* Calcium 8.3 L Total Bilirubin 1.00 AST 27 ALT 20 Alkaline Phosphatase 31 L Total Protein 6.3 L Albumin 2.9 L Globulin 3.4 Albumin/Globulin Ratio 0.9 Urine Color Yellow Urine Clarity Clear Urine pH 6.0 Ur Specific [place] 1.025 Urine Protein 30 H Urine Glucose (UA) Normal Urine Ketones 5 H Urine Occult Blood 25 H Urine Nitrite Negative Urine Bilirubin Negative Urine Urobilinogen 4 H Ur Leukocyte Esterase 25 H Urine RBC 0-5 SEEN Urine WBC 5-10 SEEN Ur Squamous Epith Cells 0 SEEN Ur Renal Epithelial Cell 0-5 SEEN Urine Bacteria 1+ Urine Mucus 0 SEEN Management Discussion w/another healthcare provider: Hospitalist Discharge Plan Dx/Rx/DC Orders Clinical Impression: Cellulitis of right lower extremity, Sepsis, Acute kidney injury Disposition Disposition: Acute Care [facility]
[2023-10-09] MEDS: 0.9% Normal Saline (1000mL) 1,000 ML 1000 ML IV (08:49)
[2023-10-09 09:08] LABS: Mucous, Urine 0 SEEN /hpf (<or=2+); Squamous Epithelial Cells - UA 0 SEEN /hpf (0-5)
[2023-10-09 09:11] LABS: ALB/GLOB Ratio 0.9 RATIO (0.9-2.4); AST(SGOT) 27 U/L (15-37); Alanine Aminotransfer ALT/SGPT 20 U/L (16-61); Albumin, Serum 2.9 g/dL (3.2-5.0); Alkaline Phosphatase 31 U/L (45-117); Anion Gap 6 (5-15); BUN 28 mg/dL (7-18); Calcium,Total 8.3 mg/dL (8.5-10.1); Chloride 101 mmol/L (98-107); EST Glomerular Filtration Rate 53 mL/min (>60); Est Glom Filt Rate - Afr Amer 64 mL/min (>60); Estimated Creatinine Clearance 51.99 ml/min; Globulin 3.4 g/dL (2.2-4.2); Glucose 137 mg/dL (74-106); Protein, Total 6.3 g/dL (6.4-8.2); Sodium Level 133 mmol/L (136-145)
[2023-10-09 09:26] LABS: Lactic Acid 2.6 mmol/L (0.4-1.9)
[2023-10-09 09:32] LABS: Differential Indicated MANUAL DIFF; Hematocrit 41.3 % (40-54); Hemoglobin 13.4 g/dL (13.0-16.5); Mean Corp Hgb Conc 32.4 g/dL (32-36); Mean Corpuscular Hgb 31.8 pg (27.0-32.0); Mean Corpuscular Volume 98.1 fL (80-94); Mean Platelet Vol. 10.9 fl (6.2-12.0); POSITIVE COUNT YES; POSITIVE DIFFERENTIAL YES; POSITIVE MORPHOLOGY YES; Platelet Count 150 K/mm3 (150-450); RBC Distribution Width CV 13.6 % (11.6-14.6); RBC Distribution Width SD 49.4 fl (35.1-43.9); Red Blood Count 4.21 M/mm3 (4.6-6.2); White Blood Count 17.1 K/mm3 (4.4-11.0)
[2023-10-09] MEDS: 0.9% Normal Saline (1000mL) 1,000 ML 999 ML IV (09:43)
[2023-10-09 09:47] LABS: Color, Urine Yellow (Yellow); Glucose, Dipstick Normal (Normal); Ketone-Dipstick 5 mg/dl (Negative); Leukocyte Esterase-Dipstick 25 /ul (Negative); Nitrite-Dipstick Negative (Negative); Occult Blood-Urine 25 /ul (Negative); Protein-Dipstick 30 mg/dl (Negative); Specific Gravity, Urine 1.025 (1.002-1.030); Urine Bilirubin Dipstick Negative (Negative); Urine Clarity Clear (Clear); Urine Urobilinogen 4 mg/dl (Normal)
[2023-10-09 09:57] LABS: Eosinophil 1 % (0-5); Lymphocyte 1 % (19-41); Metamyelocyte 4 % (0-1); Monocyte 1 % (0-10); Myelocyte 1 % (0-0); Neutrophil-Band 19 % (0-5); Neutrophil-Segmented 73 % (47-70); Platelet Estimate ADEQUATE (ADEQ); Red Cell Morphology NORM C+C NORMAL (NORM C&C); Total Cells Counted 100 (MANUAL DIFF)
[2023-10-09 09:59] LABS: Absolute Lymphocyte Count 0.17 X10^3/uL (0.83-4.51); Absolute Neutrophil Count 15.7 X10^3/uL (2.0-7.7)
[2023-10-09 10:12] LABS: Bacteria 1+ /hpf (None Seen); Red Blood Cells-Urine 0-5 SEEN /hpf (0-5); Renal Epithelial Cells 0-5 SEEN /hpf (0-5); White Blood Cells 5-10 SEEN /hpf (0-5)
[2023-10-09] MEDS: Acetaminophen 500 MG Tablet 1000 MG PO (10:19)
--- NOTE | 2023-10-09 10:40 | NURSING ---
JOHNNA CASTAÑEDA RLE CELLULITIS, SEPSIS, ACUTE KIDNEY INJURY
[2023-10-09] MEDS: Ampicillin/Sulbactam 3 GM in 0.9% Normal Saline (100mL MB+) 100 ML IV ×3 (10:44→23:38)
--- NOTE | 2023-10-09 11:52 | HP.PCM.HOS_ITS ---
[facility] - General General Date of Admission: 10/09/23 Date of Service: 10/09/23 Chief Complaint: leg swelling. [facility] Narrative THALIA GUERRIER, is a 73 M who presents with right leg swelling. Symptoms began yesterday and was seen in the emergency room early in the morning and was noted to have a lymph node. Emergency room physician reached out to Dr. Arteaga, general surgery. Plan is for patient to have a lymph node biopsy as outpatient but today, the patient had increased swelling and redness of his right lower extremity which led him to present here. Patient was diagnosed with cellulitis and received Unasyn. Patient has never had cellulitis before. Has been have some subjective chills and fever up to 101 Fahrenheit. Patient denies any recent injury, lacerations to his right leg. [facility] Medical History Arthritis Carpal tunnel syndrome, bilateral Paroxysmal atrial fibrillation Diverticulitis Postoperative atrial fibrillation Essential hypertension Atherosclerotic heart disease of [place] coronary artery without angina pectoris Paroxysmal A-fib TIA (transient ischemic attack) CAD (coronary artery disease) GERD (gastroesophageal reflux disease) BPH (benign prostatic hyperplasia) Hyperlipidemia Hypertension Home Medications ?Medication ?Instructions ?Recorded ?Last Taken ?Type aspirin 81 mg chewable tablet 81 mg PO DAILY@0800 03/24/14 02/09/19 History multivitamin 1 tab PO DAILY 09/22/17 02/09/19 History metoprolol tartrate 50 mg tablet 50 mg PO BID 04/25/19 Unknown History acetaminophen 325 mg capsule 325 mg PO Q6H PRN Pain Or Fever 04/26/19 Unknown History (Tylenol) losartan 100 mg tablet 100 mg PO DAILY 04/26/19 Unknown History apixaban 5 mg tablet 5 mg PO BID #180 tabs 04/27/19 Unknown Rx albuterol sulfate 90 mcg/actuation 2 puff inhalation Q6H PRN PRN 11/22/20 Unknown History aerosol inhaler (ProAir HFA) Shortness Of Breath sildenafil 50 mg tablet (Viagra) 50 mg PO DAILY PRN sexual activity 02/26/21 Unknown History omeprazole 20 mg capsule,delayed 20 mg PO .3xw 12/10/21 Unknown History release rosuvastatin 10 mg tablet 40 mg PO QHS 03/11/23 Unknown History amlodipine 2.5 mg tablet 2.5 mg PO DAILY #90 tabs 07/04/23 Unknown Rx hydrocodone-acetaminophen 5-325mg 1 tab PO Q6H PRN PRN Pain 3 days 10/08/23 Unknown Rx 5mg-325mg #10 TABLETS ondansetron 4 mg disintegrating 4 mg PO Q8H PRN PRN Nausea #10 tabs 10/08/23 Unknown Rx tablet tamsulosin 0.4 mg capsule 0.4 mg PO QHS 10/08/23 Unknown History Allergy/AdvReac Type Severity Reaction Status Date / Time Iodinated Contrast Media (CT) Allergy Angioedema Verified 10/09/23 08:13 Nitlriy-TDK-ZsF Reductase AdvReac muscle pain Verified 10/09/23 08:13 Inhibitor (Dsuaoed-Rvf-Czp Reductase Inhibitor) Family History Mother CAD (coronary artery disease) CVA (cerebral vascular accident) History of coronary artery bypass surgery Father Hypertension Brother CAD (coronary artery disease) Presence of stent in coronary artery Sister CAD (coronary artery disease) Cancer Pancreatic Sister CAD (coronary artery disease) Surgical History History of squamous cell carcinoma excision History of lithotripsy (~2019) History of colon resection History of tonsillectomy History of back surgery History of inguinal hernia repair History of placement of stent in LAD coronary artery (~04/05/15) History of coronary artery bypass surgery (~11/21/16) Hx of CABG Social History Smoking Status: Former smoker how long ago did patient quit smokin alcohol intake: current alcohol intake frequency: 0-2 drinks per day Alcohol type: wine details: 1 galls of wine daily substance use type: does not use caffeine: Yes Type: coffee Number of servings: 2 ROS TREY Rowell Recently has been having some urinary frequency and incomplete voiding. Normally has normal urinary stream and does not feel the need to urinate more after he is completed micturating. All review of systems were negative except as mentioned above in the history of present illness and the other review of systems. Vital Signs Vital Signs Vital Signs: 10/09/23 08:10 10/09/23 08:12 10/09/23 09:12 Temperature 36.6 C 36.3 C L 36.3 C L Temperature Source Temporal Temporal Temporal Pulse Rate 68 97 74 Respiratory Rate 16 16 20 H Blood Pressure 135/55 H 134/52 H 124/53 H Blood Pressure Mean 81 79 76 Pulse Ox 100 97 97 Oxygen Delivery Method Room Air Room Air Room Air 10/09/23 10:00 10/09/23 10:09 10/09/23 11:00 Temperature 38.7 C H 38.7 C H 37.2 C Temperature Source Oral Temporal Oral Pulse Rate 80 80 76 Respiratory Rate 20 H 20 H 20 H Blood Pressure 137/54 H 137/54 H 120/58 L Blood Pressure Mean 81 81 78 Pulse Ox 94 94 94 Oxygen Delivery Method Room Air Room Air Room Air 10/09/23 11:15 Temperature 37.2 C Temperature Source Pulse Rate 76 Respiratory Rate 20 H Blood Pressure 120/58 L Blood Pressure Mean 78 Pulse Ox 94 Oxygen Delivery Method Weight Weight: 102.8 kg Body Mass Index (BMI) 36.6 Physical Exam Const alert and no apparent distress HEENT normocephalic and head/scalp atraumatic Neck no lymphadenopathy and no JVD Resp normal respiratory effort, no retractions and no use of accessory muscles Cardio regular rate, regular rhythm, S1 normal heart sound and S2 normal heart sound GI normal to inspection, nondistended, normoactive bowel sounds, soft to palpation, non-tender and non-distended Extremity Extremity Narrative: Right leg is red extending from his ankle proximally up his thigh. No induration but it is warm. Neuro Sensorium / Orientation: awake and alert Psych affect normal Results Lab / Micro Data 10/09/23 08:43 10/09/23 08:43 Labs: Laboratory Results - last 24 hr 10/09/23 08:43: WBC 17.1 H, RBC 4.21 L, Hgb 13.4, Hct 41.3, MCV 98.1 H, MCH 31.8, MCHC 32.4, RDW Std Deviation 49.4 H, RDW Coeff of Joselyn 13.6, Plt Count 150, MPV 10.9, Neut % (Auto) Not Reportable, Absolute Neuts (auto) 15.7 H, Absolute Lymphs (auto) 0.17 L, Total Counted 100, Neutrophils % (Manual) 73 H, Band Neutrophils % 19 H, Lymphocytes % (Manual) 1 L, Monocytes % (Manual) 1, Eosinophils % (Manual) 1, Metamyelocytes % 4 H, Myelocytes % 1 H, Diff Path Review July, Platelet Estimate ADEQUATE, RBC Morphology NORM C+C, Sodium 133 L, Potassium 4.0, Chloride 101, Carbon Dioxide 26.0, Anion Gap 6, BUN 28 H, C reatinine 1.40 H, Estim Creat Clear Calc 51.99, Est GFR (MDRD) Af Amer 64, Est GFR (MDRD) Non-Af 53 L, BUN/Creatinine Ratio 20.0, Glucose 137 H, Lactic Acid 2.6 H*, Calcium 8.3 L, Total Bilirubin 1.00, AST 27, ALT 20, Alkaline Phosphatase 31 L, Total Protein 6.3 L, Albumin 2.9 L, Globulin 3.4, Albumin/Globulin Ratio 0.9 10/09/23 09:03: Urine Color Yellow, Urine Clarity Clear, Urine pH 6.0, Ur Specific [place] 1.025, Urine Protein 30 H, Urine Glucose (UA) Normal, Urine Ketones 5 H, Urine Occult Blood 25 H, Urine Nitrite Negative, Urine Bilirubin Negative, Urine Urobilinogen 4 H, Ur Leukocyte Esterase 25 H, Urine RBC 0-5 SEEN, Urine WBC 5-10 SEEN, Ur Squamous Epith Cells 0 SEEN, Ur Renal Epithelial Cell 0-5 SEEN, Urine Bacteria 1+, Urine Mucus 0 SEEN Assessment & Plan Assessment/Plan (1) Cellulitis of right lower extremity: PLAN: Plan Right lower extremity cellulitis * The redness began today but patient had some swelling but no overt redness yesterday. Also had a lymph node but I feel the lymph node is likely due to developing cellulitis he had. * Patient received ampicillin/sulbactam in emergency room. Will continue with that but also add vancomycin. * qSOFA score of 0. Therefore sepsis not present. Right inguinal lymph node: * Given now we know that the patient has cellulitis is likely reactive from the underlying infection. Acute renal insufficiency * Creatinine went up to 1.4 with baseline creatinine of 0.9. * Likely due to dehydration. IV fluids Urinary hesitancy * Likely due to dehydration as patient's specific gravity was elevated on his urinalysis and also has BPH. Patient denied having any prostate issues but he is on tamsulosin. * No sign of infection his urinalysis. Chronic conditions * Paroxysmal atrial fibrillation: Continue with apixaban and metoprolol titrate * Hypertension: Stable. Losartan on hold given the renal insufficiency. VTE prophylaxis: Not indicated as patient is already on apixaban. CODE STATUS: Addressed with patient. Patient was to be full code. Charges/Coding Visit Charges Inpatient E&M: 01665 Init Hosp L3
[2023-10-09] MEDS: 0.9% Normal Saline (1000mL) 1,000 ML 150 ML IV (12:45)
[2023-10-09 12:53] LABS: Reflex Lactate? Y
[2023-10-09] MEDS: Vancomycin HCl 1,500 MG in 0.9% Normal Saline (500mL Bag) 500 ML 250 MG IV (13:45)
[2023-10-09 13:57] LABS: Lactic Acid 2.1 mmol/L (0.4-1.9)
--- NOTE | 2023-10-09 17:10 | PCM.RX.CS ---
Consult Antibiotic Management Pharmacy has been consulted to manage selected antibiotic: Vancomycin Type of Intervention Type of Consult: New start Suspected Infection Suspected Infection: Skin/Soft tissue Labs Labs: Sodium 133 mmol/L (136-145) L 10/09/23 08:43 Potassium 4.0 mmol/L (3.5-5.1) 10/09/23 08:43 Chloride 101 mmol/L (98-107) 10/09/23 08:43 Carbon Dioxide 26.0 mmol/L (21.0-32.0) 10/09/23 08:43 Anion Gap 6 (5-15) 10/09/23 08:43 BUN 28 mg/dL (7-18) H 10/09/23 08:43 Creatinine 1.40 mg/dL (0.70-1.30) H 10/09/23 08:43 Est GFR (MDRD) Af Amer 64 mL/min (>60) 10/09/23 08:43 Est GFR (MDRD) Non-Af 53 mL/min (>60) L 10/09/23 08:43 BUN/Creatinine Ratio 20.0 RATIO (10-20) 10/09/23 08:43 Glucose 137 mg/dL (74-106) H 10/09/23 08:43 Dosing Weight Weight used for dosin kg Estimated Creatinine Clearance Estimated Creatinine Clearance: 50.5ml/min Goal Trough Goal Trough: 10-15 mcg/mL Pharmacy Plan for Drug Dosing Pharmacy Plan for Drug Dosing: NEW START IV VANCOMYCIN Consulting Physician: Dr. Cantor Indication: Cellulitis Goal Trough: 10-15 SrCr: 1.4 CrCl: 50.47 (using an adjusted body weight of 77kg) Comments: pt received a 1500mg x1 dose on 10/09/23 at 1345 Vancomycin Dose: based on patients weight and renal function, recommend an initial dose of 1250mg q24h starting 10/10/23 at 1400. trough prior to the 3rd dose Pending Level: 10/11/23 at 1330 Pharmacy Service will continue to monitor and adjust dosing as required. Follow-Up Labs Follow-Up Labs: Trough: Vancomycin (10/11/23 at 1330)
[2023-10-09] MEDS: Acetaminophen 325 MG Tablet 650 MG PO (18:07)
[2023-10-09] MEDS: Metoprolol Tartrate 50 MG Tablet PO (21:42)
[2023-10-09] MEDS: ROSUVASTATIN CALCIUM 40 MG TABLET PO (21:42)
[2023-10-09] MEDS: Tamsulosin HCl 0.4 MG Capsule PO (21:42)
[2023-10-09] MEDS: APIXABAN 5 MG TABLET PO (21:42)
[2023-10-10] VITALS (7 sets, daily range): BP systolic 120–151; BP diastolic 65–74; PULSE 66–81; RESP 16–20; TEMP 35.9–37; O2SAT 92–97
[2023-10-10] MEDS: Ampicillin/Sulbactam 3 GM in 0.9% Normal Saline (100mL MB+) 100 ML IV ×3 (05:37→17:00)
[2023-10-10 06:23] LABS: Absolute Lymphocyte Count 0.67 X10^3/uL (0.83-4.51); Absolute Neutrophil Count 9.1 X10^3/uL (2.0-7.7); Basophil# 0.03 X10^3/uL; Basophil% 0.3 % (0-1); Eosinophil# 0.01 X10^3/uL; Eosinophils% 0.1 % (0-5); Hemoglobin 12.8 g/dL (13.0-16.5); Lymphocyte # 0.67 X10^3/ul (0.83-4.51); Lymphocyte % 6.5 % (19-41); Mean Corp Hgb Conc 32.8 g/dL (32-36); Mean Corpuscular Volume 97.5 fL (80-94); Mean Platelet Vol. 10.3 fl (6.2-12.0); Monocyte# 0.35 X10^3/uL; Monocyte% 3.4 % (0-10); NRBC Flagged by Analyzer 0 % (0-5); Neutrophil # 9.09 X10^3/uL (2.7-7.7); Neutrophil % 88.4 % (47-70); Platelet Count 133 K/mm3 (150-450); RBC Distribution Width CV 13.3 % (11.6-14.6); RBC Distribution Width SD 48.1 fl (35.1-43.9); White Blood Count 10.3 K/mm3 (4.4-11.0)
[2023-10-10 07:14] LABS: Anion Gap 5 (5-15); BUN 19 mg/dL (7-18); BUN/Creat Ratio 21.3 RATIO (10-20); Chloride 106 mmol/L (98-107); Creatinine, Serum 0.89 mg/dL (0.70-1.30); EST Glomerular Filtration Rate 88 mL/min (>60); Est Glom Filt Rate - Afr Amer 107 mL/min (>60); Estimated Creatinine Clearance 79.39 ml/min; Glucose 95 mg/dL (74-106); Potassium 3.9 mmol/L (3.5-5.1); Sodium Level 134 mmol/L (136-145)
--- NOTE | 2023-10-10 08:09 | PCM.RX.CS ---
Consult Antibiotic Management Pharmacy has been consulted to manage selected antibiotic: Vancomycin Type of Intervention Type of Consult: Follow-up Labs Labs: Sodium 134 mmol/L (136-145) L 10/10/23 06:12 Potassium 3.9 mmol/L (3.5-5.1) 10/10/23 06:12 Chloride 106 mmol/L (98-107) 10/10/23 06:12 Carbon Dioxide 23.0 mmol/L (21.0-32.0) 10/10/23 06:12 Anion Gap 5 (5-15) 10/10/23 06:12 BUN 19 mg/dL (7-18) H 10/10/23 06:12 Creatinine 0.89 mg/dL (0.70-1.30) 10/10/23 06:12 Est GFR (MDRD) Af Amer 107 mL/min (>60) 10/10/23 06:12 Est GFR (MDRD) Non-Af 88 mL/min (>60) 10/10/23 06:12 BUN/Creatinine Ratio 21.3 RATIO (10-20) H 10/10/23 06:12 Glucose 95 mg/dL (74-106) 10/10/23 06:12 Goal Trough Goal Trough: 10-15 mcg/mL Pharmacy Plan for Drug Dosing Pharmacy Plan for Drug Dosing: DAILY ASSESSMENT Current Vancomycin Dose: 1250MG IV Q24hr Number of Doses Received: loading dose of 1500mg IV x1 Current Renal Function: 0.89/ CrCl 79 mL/min Renal Function Trend: significant improvement from yesterday Lab/Micro: BCx pending Any Change in Vanc Plan: patient with significant improvement in renal function compared to yesterday. Will change vancomycin dose from 1250mg IV Q24hr to 1000mg IV Q12hr based on improved renal function. Will start 1000mg IV Q12hr this morning at 0800 Pending Level: 10/11/23 @0730, prior to 4th total dose of vancomycin per protocol Pharmacy Service will continue to monitor and adjust dosing as required.
[2023-10-10] MEDS: Vancomycin IV 1,000 MG/200 ML BAG 200 MG IV ×2 (08:27→20:06)
[2023-10-10] MEDS: Metoprolol Tartrate 50 MG Tablet PO ×2 (08:31→22:48)
[2023-10-10] MEDS: Pantoprazole Sodium 20 MG Tablet PO (08:31)
[2023-10-10] MEDS: Aspirin 81 MG TAB.CHEW PO (08:31)
[2023-10-10] MEDS: APIXABAN 5 MG TABLET PO ×2 (08:31→21:52)
[2023-10-10] MEDS: Multivitamins,Therapeutic Tablet 1 TABLET PO (08:32)
--- NOTE | 2023-10-10 08:39 | PN.HOSP_ITS ---
Reason for Visit Reason for Visit: Diagnoses Cellulitis of right lower limb (10/09/23) Subjective Subjective Feeling well. Had some pain in his leg when he stood up. Has some shortness of breath yesterday which he feels up earlier with a panic attack. Feels fine right now. Objective Data Objective Data Vital Signs: Vital Signs Temp Pulse Resp BP Pulse Ox O2 Del Method 36.7 C 70 18 136/69 H 97 Room Air 10/10/23 08:19 10/10/23 08:31 10/10/23 08:19 10/10/23 08:19 10/10/23 08:19 10/10/23 08:19 Oxygen Delivery Method Room Air Weight: 97 kg Body Mass Index (BMI) 34.4 Intake & Output: Intake and Output for Last 24 Hours 10/08/23 10/09/23 10/10/23 23:59 23:59 23:59 Intake Total 3874 / 3874 344 / 344 Output Total 450 / 450 Balance 3874 / 3874 -106 / -106 Lab / Micro Data 10/10/23 06:12 10/10/23 06:12 Labs: Laboratory Results - last 24 hr 10/09/23 08:43: WBC 17.1 H, RBC 4.21 L, Hgb 13.4, Hct 41.3, MCV 98.1 H, MCH 31.8, MCHC 32.4, RDW Std Deviation 49.4 H, RDW Coeff of Joselyn 13.6, Plt Count 150, MPV 10.9, Neut % (Auto) Not Reportable, Absolute Neuts (auto) 15.7 H, Absolute Lymphs (auto) 0.17 L, Total Counted 100, Neutrophils % (Manual) 73 H, Band Neutrophils % 19 H, Lymphocytes % (Manual) 1 L, Monocytes % (Manual) 1, Eosinophils % (Manual) 1, Metamyelocytes % 4 H, Myelocytes % 1 H, Diff Path Review July, Platelet Estimate ADEQUATE, RBC Morphology NORM C+C, Sodium 133 L, Potassium 4.0, Chloride 101, Carbon Dioxide 26.0, Anion Gap 6, BUN 28 H, C reatinine 1.40 H, Estim Creat Clear Calc 51.99, Est GFR (MDRD) Af Amer 64, Est GFR (MDRD) Non-Af 53 L, BUN/Creatinine Ratio 20.0, Glucose 137 H, Lactic Acid 2.6 H*, Calcium 8.3 L, Total Bilirubin 1.00, AST 27, ALT 20, Alkaline Phosphatase 31 L, Total Protein 6.3 L, Albumin 2.9 L, Globulin 3.4, Albumin/Globulin Ratio 0.9 10/09/23 09:03: Urine Color Yellow, Urine Clarity Clear, Urine pH 6.0, Ur Specific [place] 1.025, Urine Protein 30 H, Urine Glucose (UA) Normal, Urine Ketones 5 H, Urine Occult Blood 25 H, Urine Nitrite Negative, Urine Bilirubin Negative, Urine Urobilinogen 4 H, Ur Leukocyte Esterase 25 H, Urine RBC 0-5 SEEN, Urine WBC 5-10 SEEN, Ur Squamous Epith Cells 0 SEEN, Ur Renal Epithelial Cell 0-5 SEEN, Urine Bacteria 1+, Urine Mucus 0 SEEN 10/09/23 13:17: Lactic Acid 2.1 H* 10/10/23 06:12: WBC 10.3, RBC 4.00 L, Hgb 12.8 L, Hct 39.0 L, MCV 97.5 H, MCH 32.0, MCHC 32.8, RDW Std Deviation 48.1 H, RDW Coeff of Joselyn 13.3, Plt Count 133 L, MPV 10.3, Immature Gran % (Auto) 1.300 H, Neut % (Auto) 88.4 H, Lymph % (Auto) 6.5 L, Pender % (Auto) 3.4, Eos % (Auto) 0.1, Baso % (Auto) 0.3, Absolute Neuts (auto) 9.1 H, Absolute Lymphs (auto) 0.67 L, Nucleated RBC % 0, Sodium 134 L, Potassium 3.9, Chloride 106, Carbon Dioxide 23.0, Anion Gap 5, BUN 19 H, Creatinine 0.89, Estim Creat Clear Calc 79.39, Est GFR (MDRD) Af Amer 107, Est GFR (MDRD) Non-Af 88, BUN/Creatinine Ratio 21.3 H, Glucose 95, Calcium 8.0 L Radiography Diagnostic Testing: Radiology Impression Venous Doppler Study 10/09/23 08:26 Interpretation Summary Deep veins of the right lower extremity are patent and compressible segmentally. There is no evidence of right lower extremity deep vein thrombosis. The right great saphenous vein appears patent and compressible segmentally. Prominent right inguinal lymph node Ordering Physician: Francisco Colon Referring Physician: Manish Gillespie Performed By: Hortencia Johnson, CHIARA, RVT Physical Exam Const alert and no apparent distress HEENT head/scalp atraumatic and moist oral mucous membranes Resp normal respiratory effort and no retractions Extremity Extremity Narrative: Right lower extremity cellulitis with some slight induration. Appears unchanged from yesterday. Assessment & Plan Assessment/Plan (1) Cellulitis of right lower extremity: PLAN: Plan Right lower extremity cellulitis * The redness began today but patient had some swelling but no overt redness yesterday. Also had a lymph node but I feel the lymph node is likely due to developing cellulitis he had. * Patient received ampicillin/sulbactam in emergency room. Will continue with that but also add vancomycin. * qSOFA score of 0. Therefore sepsis not present. * Duplex negative. * Advised patient to keep his leg elevated. Right inguinal lymph node: * Given now we know that the patient has cellulitis is likely reactive from the underlying infection. I do not feel it is necessary to see general surgery as we have an etiology for why he had a large lymph node. Acute renal insufficiency * Creatinine went up to 1.4 with baseline creatinine of 0.9. * Likely due to dehydration. IV fluids Urinary hesitancy * Likely due to dehydration as patient's specific gravity was elevated on his urinalysis and also has BPH. Patient denied having any prostate issues but he is on tamsulosin. * No sign of infection his urinalysis. Chronic conditions * Paroxysmal atrial fibrillation: Continue with apixaban and metoprolol titrate * Hypertension: Stable. Losartan on hold given the renal insufficiency. VTE prophylaxis: Not indicated as patient is already on apixaban. CODE STATUS: Addressed with patient. Patient was to be full code. Charges/Coding Visit Charges Inpatient E&M: 51036 Subs Hosp L2
--- NOTE | 2023-10-10 11:10 | CASEMGMT ---
SOULEYMANE DEMARCO Assessment: Face to Face with pt for initial transition planning/care coordination assessment. SOULEYMANE DEMARCO introduced self and role at [facility], pt voices understanding and consents to assessment. Pt is A&O x4 and answers all questions appropriately at this time. Pt sitting up in bed in no distress. Care providers, pharmacy, and demographics verified/updated. Admitting Dx: Sepsis, cellulitis PCP: Jose Miguel Specialists: Trev, nephrology; Waqar, orthopaedic doctor; Johnny, dryer and washer mechanic. Preferred Pharmacy: [facility] Insurance: [facility], [place] Prescription Benefit: yes LNOK: [place] Living Arrangements: Pt lives with significant other in a 2 story home with 2-3 steps to enter. ADLs: Pt states I with ADLs and IADLs at home. Transportation: Pt drives self and denies concerns with transportation. DME: Denies HHC/SNF: Denies Hx of. Pt states no concerns with going home at time of dc. Pt states no further concerns/needs. CM to follow. Advised pt to ask CM if any further question/concerns/needs arise, voices understanding. Pt Goal: Home Plan: Home, will follow plan of care. Austin COMER CM
[2023-10-10] MEDS: Albuterol 2.5 MG/3 ML VIAL.NEB. INHALATION (14:50)
[2023-10-10 15:16] LABS: Pathologist Review Reviewed
--- NOTE | 2023-10-10 16:07 | CHAPLAIN ---
Type of Pastoral Visit _x__ Initial Visit ___ Follow-up Visit ___ On-call Visit ___ General Patient Visit ___ Spiritual Assessment ___ Family Conference ___ Bereavement ___ Rapid Response ___ Code Blue ___ Other (describe below) Pastoral Care Referral From _x__ Patient ___ Family ___ Nurse ___ Physician ___ Bottom Finisher ___ Workforce Planner ___ Other (describe below) Sacrament/Intervention _x__ Active listening ___ Anointing ___ Oriental Orthodox ___ Bereavement ___ Communion ___ Michelle exploration ___ _x__ Life review _x__ Prayer ___ Reconciliation ___ Sacrament of Sick _x__ Supportive presence ___ Wedding ___ Other (describe below) Pastoral Comments patient is welcoming; at first pt states that only wish would be for a prayer; however pt begins to talk about his life and routine and explains his activities; pt is retired and says he is enjoying life; pt has a Latter Day background but I'm exploring and open to all religions; pt welcomes the prayer and presence and gives a thank you for coming
[2023-10-10] MEDS: HYDROcodone Bitartrate/Apap 5/325 Tablet PO (16:56)
[2023-10-10] MEDS: oxyCODONE 5 MG Tablet PO (20:07)
[2023-10-10] MEDS: ROSUVASTATIN CALCIUM 40 MG TABLET PO (21:51)
[2023-10-10] MEDS: amLODIPine 2.5 MG Tablet PO (21:54)
[2023-10-10] MEDS: Tamsulosin HCl 0.4 MG Capsule PO (21:55)
[2023-10-11] MEDS: Ampicillin/Sulbactam 3 GM in 0.9% Normal Saline (100mL MB+) 100 ML IV ×2 (00:04→06:19)
[2023-10-11 04:00] VITALS: BP 132/63; PULSE 64; RESP 18; TEMP 35.9; O2SAT 96
--- NOTE | 2023-10-11 07:53 | PN.HOSP_ITS ---
Reason for Visit Reason for Visit: Diagnoses Cellulitis of right lower limb (10/09/23) Subjective Subjective Still with pain in his leg when he stands up but it does get better longer he stands. Objective Data Objective Data Vital Signs: Vital Signs Temp Pulse Resp BP Pulse Ox O2 Del Method 35.9 C L 64 18 132/63 H 96 Room Air 10/11/23 04:00 10/11/23 04:00 10/11/23 04:00 10/11/23 04:00 10/11/23 04:00 10/11/23 04:00 Oxygen Delivery Method Room Air Weight: 97 kg Body Mass Index (BMI) 34.4 Intake & Output: Intake and Output for Last 24 Hours 10/09/23 10/10/23 10/11/23 23:59 23:59 23:59 Intake Total 3874 / 3874 1448 / 1928 592 / 592 Output Total 450 / 1300 1050 / 1050 Balance 3874 / 3874 998 / 628 -458 / -458 Lab / Micro Data 10/11/23 07:30 10/11/23 07:30 Labs: Laboratory Results - last 24 hr 10/09/23 08:43: Diff Path Review Reviewed Radiography Diagnostic Testing: Radiology Impression Venous Doppler Study 10/09/23 08:26 Interpretation Summary Deep veins of the right lower extremity are patent and compressible segmentally. There is no evidence of right lower extremity deep vein thrombosis. The right great saphenous vein appears patent and compressible segmentally. Prominent right inguinal lymph node Ordering Physician: Francisco Colon Referring Physician: Manish Gillespie Performed By: Hortencia Johnson, CHIARA, RVT Physical Exam Const alert and no apparent distress HEENT head/scalp atraumatic and moist oral mucous membranes Extremity Extremity Narrative: Right lower extremity edema. Slightly decreased erythema of the anterior right lower extremity. Does have some swelling and some ecchymosis along his right lateral malleolus. Neuro Sensorium / Orientation: awake and alert Assessment & Plan Assessment/Plan (1) Cellulitis of right lower extremity: PLAN: Plan Right lower extremity cellulitis * The redness began today but patient had some swelling but no overt redness yesterday. Also had a lymph node but I feel the lymph node is likely due to developing cellulitis he had. * Patient received ampicillin/sulbactam in emergency room. Will continue with that but also add vancomycin. * qSOFA score of 0. Therefore sepsis not present. * Duplex negative. * Advised patient to keep his leg elevated. * Overall, the patient is much improved. Still does have erythema and some tenderness particular when he is standing up. But with palpation, cellulitis is overall improving. Feel the patient can be discharged today to complete antibiotics.Given the severity, will discharge with amoxicillin and doxycycline. Right inguinal lymph node: * Given now we know that the patient has cellulitis is likely reactive from the underlying infection. I do not feel it is necessary to see general surgery as we have an etiology for why he had a large lymph node. Acute renal insufficiency * resolved * Creatinine went up to 1.4 with baseline creatinine of 0.9. * Likely due to dehydration. IV fluids Urinary hesitancy * Likely due to dehydration as patient's specific gravity was elevated on his urinalysis and also has BPH. Patient denied having any prostate issues but he is on tamsulosin. * No sign of infection his urinalysis. Chronic conditions * Paroxysmal atrial fibrillation: Continue with apixaban and metoprolol titrate * Hypertension: Stable. Losartan on hold given the renal insufficiency. VTE prophylaxis: Not indicated as patient is already on apixaban. CODE STATUS: Addressed with patient. Patient was to be full code.
[2023-10-11 07:59] LABS: Absolute Lymphocyte Count 0.83 X10^3/uL (0.83-4.51); Absolute Neutrophil Count 6.6 X10^3/uL (2.0-7.7); Basophil# 0.03 X10^3/uL; Basophil% 0.4 % (0-1); Eosinophil# 0.09 X10^3/uL; Eosinophils% 1.1 % (0-5); Hematocrit 37.3 % (40-54); Hemoglobin 12.4 g/dL (13.0-16.5); Lymphocyte # 0.83 X10^3/ul (0.83-4.51); Lymphocyte % 10.2 % (19-41); Mean Corp Hgb Conc 33.2 g/dL (32-36); Mean Corpuscular Hgb 32.2 pg (27.0-32.0); Mean Corpuscular Volume 96.9 fL (80-94); Mean Platelet Vol. 10.6 fl (6.2-12.0); Monocyte% 7.3 % (0-10); NRBC Flagged by Analyzer 0 % (0-5); Neutrophil # 6.57 X10^3/uL (2.7-7.7); Neutrophil % 80.4 % (47-70); Platelet Count 151 K/mm3 (150-450); RBC Distribution Width CV 13.5 % (11.6-14.6); RBC Distribution Width SD 47.9 fl (35.1-43.9); Red Blood Count 3.85 M/mm3 (4.6-6.2); White Blood Count 8.2 K/mm3 (4.4-11.0)
[2023-10-11 08:16] LABS: Anion Gap 4 (5-15); BUN 14 mg/dL (7-18); BUN/Creat Ratio 16.1 RATIO (10-20); Chloride 105 mmol/L (98-107); Creatinine, Serum 0.87 mg/dL (0.70-1.30); EST Glomerular Filtration Rate 91 mL/min (>60); Est Glom Filt Rate - Afr Amer 110 mL/min (>60); Estimated Creatinine Clearance 81.21 ml/min; Glucose 98 mg/dL (74-106); Potassium 3.9 mmol/L (3.5-5.1); Sodium Level 138 mmol/L (136-145)
--- NOTE | 2023-10-11 09:02 | DS.PCM_ITS ---
Providers Date of Admission: 10/09/23 Primary Care Physician: Dr. Manish Gillespie MD Reason For Visit: SEPSIS, CELLULITIS Diagnosis Discharge Diagnosis (1) Cellulitis of right lower extremity: Status: Acute Code(s): L03.115 - Cellulitis of right lower limb Plan Right lower extremity cellulitis * The redness began today but patient had some swelling but no overt redness yesterday. Also had a lymph node but I feel the lymph node is likely due to developing cellulitis he had. * Patient received ampicillin/sulbactam in emergency room. Will continue with that but also add vancomycin. * qSOFA score of 0. Therefore sepsis not present. * Duplex negative. * Advised patient to keep his leg elevated. * Overall, the patient is much improved. Still does have erythema and some tenderness particular when he is standing up. But with palpation, cellulitis is overall improving. Feel the patient can be discharged today to complete antibiotics.Given the severity, will discharge with amoxicillin and doxycycline. Right inguinal lymph node: * Given now we know that the patient has cellulitis is likely reactive from the underlying infection. I do not feel it is necessary to see general surgery as we have an etiology for why he had a large lymph node. Acute renal insufficiency * resolved * Creatinine went up to 1.4 with baseline creatinine of 0.9. * Likely due to dehydration. IV fluids Urinary hesitancy * Likely due to dehydration as patient's specific gravity was elevated on his urinalysis and also has BPH. Patient denied having any prostate issues but he is on tamsulosin. * No sign of infection his urinalysis. Chronic conditions * Paroxysmal atrial fibrillation: Continue with apixaban and metoprolol titrate * Hypertension: Stable. Losartan on hold given the renal insufficiency. VTE prophylaxis: Not indicated as patient is already on apixaban. CODE STATUS: Addressed with patient. Patient was to be full code. Medications at Discharge Home Medications aspirin 81 mg chewable tablet 81 mg PO DAILY@0800 unsure 03/24/14 multivitamin 1 tab PO DAILY nutrition support 09/22/17 metoprolol tartrate 50 mg tablet 50 mg PO BID BP 04/25/19 acetaminophen 325 mg capsule (Tylenol) 325 mg PO Q6H PRN Pain Or Fever 04/26/19 losartan 100 mg tablet 100 mg PO DAILY BP 04/26/19 apixaban 5 mg tablet 5 mg PO BID #180 tabs 04/27/19 albuterol sulfate 90 mcg/actuation aerosol inhaler (ProAir HFA) 2 puff inhalation Q6H PRN PRN Shortness Of Breath 11/22/20 sildenafil 50 mg tablet (Viagra) 50 mg PO DAILY PRN sexual activity 02/26/21 omeprazole 20 mg capsule,delayed release 20 mg PO .3xw GERD 12/10/21 rosuvastatin 10 mg tablet 40 mg PO QHS cholesterol 03/11/23 amlodipine 2.5 mg tablet 2.5 mg PO DAILY #90 tabs 07/04/23 hydrocodone-acetaminophen 5-325mg 5mg-325mg 1 tab PO Q6H PRN PRN Pain 3 days #10 TABLETS 10/08/23 ondansetron 4 mg disintegrating tablet 4 mg PO Q8H PRN PRN Nausea #10 tabs 10/08/23 tamsulosin 0.4 mg capsule 0.4 mg PO QHS BPH 10/08/23 amoxicillin 500 mg capsule 500 mg PO Q8H #12 caps 10/11/23 doxycycline monohydrate 100 mg tablet 100 mg PO BID #8 tabs 10/11/23 oxycodone 5 mg tablet 5 mg PO Q6H PRN pain 3 days #12 tabs 10/11/23 white petrolatum 41 % topical ointment (Aquaphor Original) 1 applic topical BID PRN dry skin #396 grams 10/11/23 Hospital Course Operations None Procedures None Summary of Care Provided Minutes Spent on Discharge: 32 Hospital Course: Patient presents with right leg swelling. Patient was seen the day prior for swelling his leg and it was noted to have a enlarged right inguinal lymph node. Patient was to follow-up with surgery to see about having that biopsy. The following day, a cellulitis then developed and patient was having fevers with a temperature of 101 Fahrenheit. Patient was started on antibiotics with ampicillin/sulbactam and vancomycin. Patient will does have erythema on his right leg but is overall improving. Patient states that when he stands that his leg gets very tender but does improve with standing for period of time. Patient has improved and will be discharged with amoxicillin and doxycycline to complete a 7-day course of antibiotics. Additionally, patient does have some skin changes that are indicative of eventual sloughing of the skin due to the cellulitis. Advised patient to use something such as Aquaphor to help with healing of what will eventually be sloughing skin on his right puri. Weight / BMI Weight Weight: 97 kg Body Mass Index (BMI) 34.4 ABG / Lab / Microbiology Data 10/11/23 07:30 10/11/23 07:30 Laboratory: Laboratory Results - last 24 hr 10/09/23 08:43: Diff Path Review Reviewed 10/11/23 07:30: WBC 8.2, RBC 3.85 L, Hgb 12.4 L, Hct 37.3 L, MCV 96.9 H, MCH 32.2 H, MCHC 33.2, RDW Std Deviation 47.9 H, RDW Coeff of Joselyn 13.5, Plt Count 151, MPV 10.6, Immature Gran % (Auto) 0.600, Neut % (Auto) 80.4 H, Lymph % (Auto) 10.2 L, Bollinger % (Auto) 7.3, Eos % (Auto) 1.1, Baso % (Auto) 0.4, Absolute Neuts (auto) 6.6, Absolute Lymphs (auto) 0.83, Nucleated RBC % 0, Sodium 138, Potassium 3.9, Chloride 105, Carbon Dioxide 29.0, Anion Gap 4 L, BUN 14, Creatinine 0.87, Estim Creat Clear Calc 81.21, Est GFR (MDRD) Af Amer 110, Est GFR (MDRD) Non-Af 91, BUN/Creatinine Ratio 16.1, Glucose 98, Calcium 8.0 L D/C Instructions Discharge Diet: No restrictions Meaningful Use Info Meaningful Use Meaningful Use Diagnoses (Choose all that apply): None applicable Ischemic Stroke Statin Dosing Therapy Reference: STATIN DOSE THERAPY REFERENCE: * Patients > 75 years receive moderate or high dose statin therapy. * Patients 75 years or YOUNGER should receive HIGH intensity statin dose unless contraindicated. You will be required to document reason for non-treatment if statin daily dose does not meet guidelines. HIGH DOSE STATIN THERAPY DAILY Atorvastatin > than or = to 40 mg Rosuvastatin > than or = to 20 mg Amlodipine + Atorvastatin > than or = to 2.5/40 mg Ezetimibe + Simvastatin 10/80 mg Simvastatin 80mg Discharge Plan Admission Admit Date/Time: 10/09/23 10:35 Primary Reason for Your Visit: Right lower extremity cellulitis Attending Provider: Dhaval Cantor Primary Care Provider: Manish Gillespie Instructions Additional Instructions / Restrictions: You had right lower extremity cellulitis, which is an skin infection. Continue antibiotics until completed. Keep your right leg elevated to help with overall healing. May use ice as needed. Advise using some kind of topical emollient, such as Aquaphor, to help with healing of your leg. If you do notice that worsening redness, increasing fever or chills, notify your physician or return to the emergency room. If you do happen to touch her leg for what ever reason, be sure to wash your hands or use hand health care social worker afterwards. Discharge Orders/Prescriptions Prescriptions: New oxycodone 5 mg Tablet 5 mg PO Q6H PRN (Reason: pain) 3 Days Qty: 12 0RF Aquaphor Original 41 % ointment 1 applic topical BID PRN (Reason: dry skin) Qty: 396 0RF Rx Instructions: to right leg. [id number], no prescription required. amoxicillin 500 mg capsule 500 mg PO Q8H Qty: 12 0RF doxycycline monohydrate 100 mg tablet 100 mg PO BID Qty: 8 0RF Continued losartan 100 mg tablet 100 mg PO DAILY acetaminophen [Tylenol] 325 mg capsule 325 mg PO Q6H PRN (Reason: Pain Or Fever) apixaban 5 mg tablet 5 mg PO BID Qty: 180 4RF sildenafil [Viagra] 50 mg tablet 50 mg PO DAILY PRN (Reason: sexual activity) Rx Instructions: administer 30 minutes to 4 hours before activity aspirin 81 MG tablet,chewable 81 mg PO DAILY@0800 Patient Comments: Blood thinner for heart health omeprazole 20 mg capsule,delayed release(DR/EC) 20 mg PO .3xw Patient Comments: Acid reflux rosuvastatin 10 mg tablet 40 mg PO QHS multivitamin 1 EACH tablet 1 tab PO DAILY metoprolol tartrate 50 mg tablet 50 mg PO BID albuterol sulfate [ProAir HFA] 90 mcg/actuation Hfa Aerosol Inhaler 2 puff INHALATION Q6H PRN PRN (Reason: Shortness Of Breath) tamsulosin 0.4 mg capsule 0.4 mg PO QHS ondansetron 4 mg tablet,disintegrating 4 mg PO Q8H PRN PRN (Reason: Nausea) Qty: 10 0RF hydrocodone-acetaminophen 5-325 mg tablet 1 tab PO Q6H PRN PRN (Reason: Pain) 3 Days Qty: 10 0RF amlodipine 2.5 mg tablet 2.5 mg PO DAILY Qty: 90 3RF Referrals / Follow Up: Manish Gillespie MD [Primary Care Provider] - Within 2 Weeks Disposition Disposition (needs filled in before D/C Order can be placed): Home, Self Care Charges/Coding Visit Charges Inpatient E&M: 43429 Disch Hosp >30min
[2023-10-11 09:13] VITALS: BP 129/61; PULSE 76; RESP 18; TEMP 36.5; O2SAT 96
[2023-10-11 09:16] VITALS: PULSE 76
[2023-10-11] MEDS: APIXABAN 5 MG TABLET PO (09:16)
[2023-10-11] MEDS: Metoprolol Tartrate 50 MG Tablet PO (09:16)
[2023-10-11] MEDS: Multivitamins,Therapeutic Tablet 1 TABLET PO (09:16)
[2023-10-11] MEDS: Aspirin 81 MG TAB.CHEW PO (09:16)
--- NOTE | 2023-10-11 09:48 | PHA.DC_ITS ---
Pharmacy [facility] Pharmacy Service has performed discharge medication reconciliation and counseling for this patient. The patient's discharge medication list was reviewed for discrepancies and discrepancies were resolved. The patient was counseled on the following discharge medications and changes in medications for homegoing were reviewed. The Reason for Use, instructions for use, and potential side effects were reviewed for all new medications. The patient's questions regarding all of their medications were answered. 1. Amoxicillin 500 mg PO Q8H x 4 days 2. Doxycycline 100 mg PO BID x 4 days 3. Oxycodone 5 mg PO Q6H PRN pain x 12 tabs 4. Aquaphor 1 application topically BID PRN dry skin The patient was able to verbally demonstrate an understanding of their discharge medications. The patient was counselled on new medications by student success coach Jeffrey. Medications at Discharge Home Medications aspirin 81 mg chewable tablet 81 mg PO DAILY@0800 heart health 03/24/14 multivitamin 1 tab PO DAILY nutrition support 09/22/17 metoprolol tartrate 50 mg tablet 50 mg PO BID BP 04/25/19 acetaminophen 325 mg capsule (Tylenol) 325 mg PO Q6H PRN Pain Or Fever 04/26/19 losartan 100 mg tablet 100 mg PO DAILY BP 04/26/19 apixaban 5 mg tablet 5 mg PO BID blood thinner #180 tabs 04/27/19 albuterol sulfate 90 mcg/actuation aerosol inhaler (ProAir HFA) 2 puff inhalation Q6H PRN PRN Shortness Of Breath 11/22/20 sildenafil 50 mg tablet (Viagra) 50 mg PO DAILY PRN sexual activity 02/26/21 omeprazole 20 mg capsule,delayed release 20 mg PO .3xw GERD 12/10/21 rosuvastatin 10 mg tablet 40 mg PO QHS cholesterol 03/11/23 amlodipine 2.5 mg tablet 2.5 mg PO DAILY #90 tabs 07/04/23 hydrocodone-acetaminophen 5-325mg 5mg-325mg 1 tab PO Q6H PRN PRN Pain 3 days #10 TABLETS 10/08/23 ondansetron 4 mg disintegrating tablet 4 mg PO Q8H PRN PRN Nausea #10 tabs 10/08/23 tamsulosin 0.4 mg capsule 0.4 mg PO QHS BPH 10/08/23 amoxicillin 500 mg capsule 500 mg PO Q8H #12 caps 10/11/23 doxycycline monohydrate 100 mg tablet 100 mg PO BID #8 tabs 10/11/23 oxycodone 5 mg tablet 5 mg PO Q6H PRN pain 3 days #12 tabs 10/11/23 white petrolatum 41 % topical ointment (Aquaphor Original) 1 applic topical BID PRN dry skin #396 grams 10/11/23
--- NOTE | 2023-10-11 09:50 | CASEMGMT ---
Noted discharge order placed, RN CM into patient room. Pt states has no questions or concerns and denies any discharge needs at this time.
[2023-10-11 09:54] LABS: Vancomycin, Trough Level 9.1 ug/mL (5.0-15.0)
--- NOTE | 2023-10-11 10:05 | PCM.RX.CS ---
Consult Antibiotic Management Pharmacy has been consulted to manage selected antibiotic: Vancomycin Type of Intervention Type of Consult: Follow-up Suspected Infection Suspected Infection: Skin/Soft tissue Prior Doses of Antibiotics Prior Doses of Antibiotics Received/Current Regimen: Vnaomycin 1000mg IV given 10/09 @ 826 and 10/09 @ 2005 Labs Labs: Sodium 138 mmol/L (136-145) 10/11/23 07:30 Potassium 3.9 mmol/L (3.5-5.1) 10/11/23 07:30 Chloride 105 mmol/L (98-107) 10/11/23 07:30 Carbon Dioxide 29.0 mmol/L (21.0-32.0) 10/11/23 07:30 Anion Gap 4 (5-15) L 10/11/23 07:30 BUN 14 mg/dL (7-18) 10/11/23 07:30 Creatinine 0.87 mg/dL (0.70-1.30) 10/11/23 07:30 Est GFR (MDRD) Af Amer 110 mL/min (>60) 10/11/23 07:30 Est GFR (MDRD) Non-Af 91 mL/min (>60) 10/11/23 07:30 BUN/Creatinine Ratio 16.1 RATIO (10-20) 10/11/23 07:30 Glucose 98 mg/dL (74-106) 10/11/23 07:30 Vancomycin Trough 9.1 ug/mL (5.0-15.0) 10/11/23 07:30 Dosing Weight Weight used for dosin kg Estimated Creatinine Clearance Estimated Creatinine Clearance: ~81 Goal Trough Goal Trough: 10-15 mcg/mL Pharmacy Plan for Drug Dosing Pharmacy Plan for Drug Dosing: Vancomycin trough 9.1 drawn 11.5 hours after last dose, will increase dose to 1250 mg Q12H, but will hold off on ordering additional trough as patient is to be discharged this AM. Pharmacy Service will continue to monitor and adjust dosing as required.
[2023-10-11] MEDS: Vancomycin HCl 1,250 MG in 0.9% Normal Saline (250mL Bag) 250 ML 167 MG IV (10:28)
--- NOTE | 2023-10-11 11:31 | CASEMGMT ---
Social Work Both Living will and healthcare POA are scanned into [employer], Irving Abebe is listed as pt's POA for Healthcare. CHARLIE Clifton
== END 2023-10-11 13:28 | disposition home or self-care (01) | DRG 603 ==
LOC: ED 10:38 → PCU 11:02
PROVIDERS: Emergency Provider Emergency Medicine; PCP Family Medicine
DX: L03.115 Cellulitis of right lower limb (principal); N17.9 Acute kidney failure, unspecified; I48.0 Paroxysmal atrial fibrillation; I10 Essential (primary) hypertension; E78.5 Hyperlipidemia, unspecified; E86.0 Dehydration; I25.10 Atherosclerotic heart disease of native coronary artery without angina pectoris; N40.1 Benign prostatic hyperplasia with lower urinary tract symptoms; R39.11 Hesitancy of micturition; R59.0 Localized enlarged lymph nodes; Z95.1 Presence of aortocoronary bypass graft; Z95.5 Presence of coronary angioplasty implant and graft; Z79.01 Long term (current) use of anticoagulants; Z79.82 Long term (current) use of aspirin; Z79.899 Other long term (current) drug therapy; Z86.73 Personal history of transient ischemic attack (TIA), and cerebral infarction without residual deficits; Z87.891 Personal history of nicotine dependence
CPT/HCPCS: 36415; 74176; 80048; 80053; 80202; 81001; 83605; 83690; 85025; 87040; 93971; 94640; 96361; 96374; 96375; 99252; 99284; J7030; J7040; J7050; A4216; G0463; J0295; J2405

== ENCOUNTER → 2023-11-10 | Outpatient (CLI) | payer MEDICARE, OTHER, SELFPAY ==
--- NOTE | 2023-11-10 14:41 | US_ITS ---
STUDY: THYROID ULTRASOUND REASON FOR EXAM: Male, 73 years old. PARALYSIS VOCAL CHORDS TECHNIQUE: Ultrasound evaluation of the thyroid was performed with real-time and static hernandez-scale imaging. COMPARISON: None. FINDINGS: RIGHT LOBE: The right lobe of the thyroid gland measures 4.2 x 1.4 x 1.7 cm. There is a homogeneous echotexture. There are no demonstrated solid, cystic or complex lesions. LEFT LOBE: The left lobe of the thyroid gland measures 4.4 x 1.2 x 2.0 cm. There is a homogeneous echotexture. There are no demonstrated solid, cystic or complex lesions. ISTHMUS: The isthmus measures 2 mm thick. . The regional lymph nodes are normal. US/Thyroid IMPRESSION: Normal ultrasound examination of the thyroid. Electronically Signed: Romulo Cortes MD at 9:16 EDT ,
--- NOTE | 2023-11-10 14:41 | CT_ITS ---
STUDY: CT SOFT TISSUE NECK WITHOUT CONTRAST REASON FOR EXAM: Male, 73 years old. PARALYSIS VOCAL CHORDS RADIATION DOSAGE (If Supplied By Facility): CTDIvol = ( 12.45 ) mGy, DLP = ( 369.82 ) mGycm TECHNIQUE: The patient was scanned in a multi-detector CT scanner. High resolution transaxial imaging was performed without the administration of intravenous contrast material. Sagittal and coronal images were reconstructed. Individualized dose optimization techniques were used for this CT. COMPARISON: None. FINDINGS: Normal bilateral parotid glands. Normal bilateral rug cleaner hand spaces. Normal bilateral parapharyngeal spaces. Normal bilateral carotid spaces. Normal bilateral sublingual and submandibular glands and spaces. Normal visualized nasopharynx. Normal retropharyngeal space. Normal perivertebral space. Normal visualized bilateral faucial tonsils. The visualized tongue, tongue base and oropharynx are normal. The visualized cervical lymph nodes (levels I-) are within normal size limits, and maintain normal morphology. There is no demonstrated solid or cystic mass lesion. Normal epiglottis, bilateral vallecula and hypopharynx. The pre-epiglottic and paraglottic adipose spaces are normal. Normal visualized bilateral piriform sinuses, aryepiglottic folds, vocal cords, and arytenoid-cricoid articulations. Normal subglottic trachea. Normal bilateral lobes of the thyroid gland. Normal visualized pulmonary apices. Normal visualized paranasal sinuses. There is multilevel degenerative changes of the cervical spine. CT/Soft Tissue Neck without Contr IMPRESSION: Normal unenhanced CT examination of the soft tissues of the neck. Electronically Signed: Romulo Cortes MD at 9:31 EDT ,
--- NOTE | 2023-11-10 14:41 | CT_ITS ---
INDICATION: PARALYSIS VOCAL CHORDS EXAMINATION: CT CHEST WITHOUT CONTRAST - CT Chest W/O Contrast Injection TECHNIQUE: Helically acquired images were obtained of the chest. A radiation dose optimization technique was used for this scan. IV Contrast dosage and agent: None. COMPARISON: None. FINDINGS: Status post median sternotomy. LUNGS, PLEURA AND LARGE AIRWAYS: No masses, consolidation, or edema. Some linear scarring in the periphery of the left lung. No pleural effusion or thickening. Azygos lobe which is a normal variant. THYROID: No thyroid lesions. HEART AND PERICARDIUM: Heart size is normal. No pericardial effusion. CORONARY ARTERIES: Coronary artery calcification is seen. VESSELS: Thoracic aorta is not dilated. MEDIASTINUM AND KATHERINE: No mediastinal or hilar adenopathy. Esophagus is unremarkable. No hiatal hernia. UPPER ABDOMEN: Small calcified gallstone in the neck of the gallbladder consistent with cholelithiasis. BONES: No suspicious lytic or blastic abnormality. CT/Chest without Contrast IMPRESSION: Negative CT chest without contrast. Electronically Signed: Romulo Cortes MD at 12:43 EDT ,
== END | disposition home or self-care (01) ==
LOC: CT 14:39
PROVIDERS: PCP Family Medicine; Referring Provider Otolaryngology Otolaryngology/Facial Plastic Surgery; Visit Provider Otolaryngology Otolaryngology/Facial Plastic Surgery
DX: J38.01 Paralysis of vocal cords and larynx, unilateral (principal); R49.0 Dysphonia
CPT/HCPCS: 70490; 71250; 76536

== ENCOUNTER 2023-12-06 05:57 | Day surgery (SDC) | payer MEDICARE, OTHER, SELFPAY ==
[2023-12-01 11:40] LABS: ALB/GLOB Ratio 0.9 RATIO (0.9-2.4); AST(SGOT) 18 U/L (15-37); Alanine Aminotransfer ALT/SGPT 21 U/L (16-61); Albumin, Serum 3.4 g/dL (3.2-5.0); Alkaline Phosphatase 54 U/L (45-117); Anion Gap 4 (5-15); BUN 20 mg/dL (7-18); BUN/Creat Ratio 21.3 RATIO (10-20); Calcium,Total 9.1 mg/dL (8.5-10.1); Chloride 109 mmol/L (98-107); Creatinine, Serum 0.94 mg/dL (0.70-1.30); EST Glomerular Filtration Rate 84 mL/min (>60); Est Glom Filt Rate - Afr Amer 101 mL/min (>60); Globulin 3.7 g/dL (2.2-4.2); Glucose 79 mg/dL (74-106); Potassium 4.2 mmol/L (3.5-5.1); Protein, Total 7.1 g/dL (6.4-8.2); Sodium Level 140 mmol/L (136-145)
--- NOTE | 2023-12-05 06:46 | EKG12_ITS ---
Test Reason : PRE OP Blood Pressure : / mmHG Vent. Rate : 058 BPM Atrial Rate : 058 BPM P-R Int : 200 ms QRS Dur : 098 ms QT Int : 428 ms P-R-T Axes : 008 -12 010 degrees QTc Int : 420 ms Sinus bradycardia Otherwise normal ECG Confirmed by JAKE MELTON, ROSY ([id number]), manuscript editor CHERRY GARCIA ([id number]) on 12/05/2023 12:48:31 PM Referred By: Joseluis Jaquez Confirmed By:ROSY JOSEPH MD
[2023-12-06] VITALS (8 sets, daily range): BP systolic 141–159; BP diastolic 65–72; PULSE 54–62; RESP 16; TEMP 36–36.3; O2SAT 96–100; BMI 35.3
[2023-12-06] MEDS: Lactated Ringers 1,000 ML 15 ML IV (06:36)
--- NOTE | 2023-12-06 06:53 | PCM.PRE.AN2 ---
ASA Classification* ASA Classification ASA Classification: 2 Assessment & Plan Anesthesia* Anesthesia Assessment Anesthesia Assessment: Discussed sedation and/or anesthesia options, risks, benefits, and alternatives with patient/parents/legal guardian/POA. Questions invited. The patient/parents/legal guardian/POA seems to understand and agrees to proceed with anesthesia plan. Reviewed the physical assessment, medical history, allergy history and patient home medications list prior to surgery/procedure/anesthetic and documented any changes. Performed airway and anesthesia risk assessments. Anesthesia Type Anesthesia Type: General (see written pre anesthesia record for full assessment) Anesthesia Focused Assessment* Temperature: 97.4 F Pulse Rate: 54 Blood Pressure: 141/65 Respiratory Rate: 16 Pulse Ox: 100 Airway Assessment Mouth opens: >3 cm Mallampati Score: II Focused Labs Anesthesia Preop lab: CBC WBC 8.2 K/mm3 (4.4-11.0) 10/11/23 07:30 RBC 3.85 M/mm3 (4.6-6.2) L 10/11/23 07:30 Hgb 12.4 g/dL (13.0-16.5) L 10/11/23 07:30 Hct 37.3 % (40-54) L 10/11/23 07:30 Plt Count 151 K/mm3 (150-450) 10/11/23 07:30 CHEMISTRY Potassium 4.2 mmol/L (3.5-5.1) 12/01/23 10:04 Sodium 140 mmol/L (136-145) 12/01/23 10:04 Magnesium 2.2 mg/dL (1.6-2.6) 03/29/19 15:00 BUN 20 mg/dL (7-18) H 12/01/23 10:04 Creatinine 0.94 mg/dL (0.70-1.30) 12/01/23 10:04 Glucose 79 mg/dL (74-106) 12/01/23 10:04 POC Glucose 92 mg/dL (70-110) 02/09/19 05:34 TSH 2.27 uIU/mL (0.358-3.74) 03/29/19 15:00 COAG PT 12.1 SECONDS (11.7-14.9) 02/09/19 05:30 Pre-Assessment Diagnosis/Proposed Procedure Planned Operative Procedure(s): VOCAL CORD INJECTION Anesthesia History 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 When Was Last Pacemaker Check QUESTION #4 FULL TEXT: You/Your Family Experience fever (hyperthermia) with Anesthesia Last Oral Intake Last Oral intake: Last Oral Intake NPO since 17:30 12/06/23 06:37 Meds taken in AM with sips of Yes 12/06/23 06:37 water? Meds patient instructed to metoprolol, losartan 12/06/23 06:37 take am of surgery PONV PONV - sales operations associate: PONV - sales operations associate Female No 12/01/23 12:48 HX of Motion Sickness No 12/01/23 12:48 HX of N/V After Surgery No 12/01/23 12:48 Non-Smoker Yes 12/01/23 12:48 Duration of Surgery greater No 12/01/23 12:48 than 60 minutes Number of Risk Factors 1 12/01/23 12:48 PONV Score Low Risk 12/01/23 12:48 Height & Weight Height & Weight: Anesthesia: Height & Weight Height 5 ft 6 in 12/06/23 06:37 Weight: 99.3 kg 12/06/23 06:37 Body Mass Index (BMI) 35.3 12/06/23 06:37 Respiratory Assessment Respiratory Assessment - sales operations associate: Respiratory Tract Infection Hx - sales operations associate Hx Respiratory Tract Infection No 12/01/23 12:48 STOP Sleep Apnea STOP Sleep Apnea - sales operations associate: STOP Sleep Apnea - sales operations associate Hx Hypertension Yes: CONTROLLED WITH MED 12/01/23 12:48 Hx Sleep Apnea No 12/01/23 12:48 CPAP No 02/09/19 10:13 BIPAP No 02/09/19 10:13 Do you snore loudly (louder No 12/01/23 12:48 than talking or can be heard Do you often feel tired/ No 12/01/23 12:48 fatigued/ sleepy during daytime? Has anyone observed you stop No 12/01/23 12:48 breathing during sleep? STOP Results Negative 12/01/23 12:48 QUESTION #5 FULL TEXT : Do you snore loudly (louder than talking or can be heard through closed doors)? Tobacco Use History Tobacco Use History - sales operations associate: Tobacco Use History - sales operations associate Tobacco Use Smoking Status Former smoker 12/01/23 12:48 Hx Tobacco Use No 12/01/23 12:48 Years Smoking Packs Smoked per Day Smoking Cessation Date was No - quit smoking greater 12/01/23 12:48 within the last 15 years than 15 years ago Hx Smoking Cessation Date 03/28/87 12/01/23 12:48 Hx Smoking Cessation No 12/01/23 12:48 Counseling Hematologic Medial History Hematologic Hx - sales operations associate: Hematologic Medical Hx - facility service associate Hx of Blood Transfusion No 12/01/23 12:48 Hx of Transfusion in last 3 No 12/01/23 12:48 Months Date of Last Transfusion (if within last 3 months) Ever experience any problems No 12/01/23 12:48 with transfusion(s)? Specify any problems Hx of Preganancy in last 3 N/A 12/01/23 12:48 Months Nurse Filling Out Transfusion NBUCHER 12/01/23 12:48 & Questions: Date: 12/01/23 12/01/23 12:48 Time: 12:50 12/01/23 12:48 Patient unable to answer at this time (ie. confused, unrespo /Reproduction History /Reproductive History - sales operations associate: /Reproductive Hx- sales operations associate Hx Now No 12/01/23 12:48 Gestational Age (in weeks): EDC: Hx Hx Para Hx Section SAB No 12/01/23 12:48 Active Medications Active Medications: Current Medications Generic Name Dose Route Start Last Admin Trade Name Freq PRN Reason Stop Dose Admin Lactated Ringer's 1,000 mls @ 15 mls/hr 12/06/23 06:15 12/06/23 06:36 IV 15 mls/hr .Q48H ROBERTO Administration PFSH Medical History Wears glasses Wears hearing aid Loss of hearing Cancer Alcohol use History of kidney stones High cholesterol Easy bruising History of diverticulitis History of edema History of atrial fibrillation Former smoker History of echocardiogram History of stress test Cardiology follow-up encounter Obesity Arthritis Carpal tunnel syndrome, bilateral Paroxysmal atrial fibrillation Diverticulitis Postoperative atrial fibrillation Essential hypertension Atherosclerotic heart disease of [place] coronary artery without angina pectoris Paroxysmal A-fib TIA (transient ischemic attack) Chest pain CAD (coronary artery disease) GERD (gastroesophageal reflux disease) BPH (benign prostatic hyperplasia) Hyperlipidemia Hypertension Home Medications ?Medication ?Instructions ?Recorded ?Last Taken ?Type aspirin 81 mg chewable tablet 81 mg PO DAILY@0800 heart health 03/24/14 12/01/23 History multivitamin 1 tab PO DAILY nutrition support 09/22/17 10/09/23 History metoprolol tartrate 50 mg tablet 50 mg PO BID BP 04/25/19 12/06/23 History acetaminophen 325 mg capsule 325 mg PO Q6H PRN Pain Or Fever 04/26/19 Unknown History (Tylenol) losartan 100 mg tablet 100 mg PO DAILY BP 04/26/19 12/06/23 History apixaban 5 mg tablet 5 mg PO BID blood thinner #180 tabs 04/27/19 12/03/23 Rx albuterol sulfate 90 mcg/actuation 2 puff inhalation Q6H PRN PRN 11/22/20 Unknown History aerosol inhaler (ProAir HFA) Shortness Of Breath sildenafil 50 mg tablet (Viagra) 50 mg PO DAILY PRN sexual activity 02/26/21 10/03/23 History omeprazole 20 mg capsule,delayed 20 mg PO SUWEFR GERD 12/10/21 10/07/23 History release rosuvastatin 10 mg tablet 40 mg PO QHS cholesterol 03/11/23 10/08/23 History amlodipine 2.5 mg tablet 2.5 mg PO DAILY #90 tabs 07/04/23 10/08/23 Rx psyllium husk 0.4 gram capsule 0.4 g PO DAILY 12/01/23 Unknown History (Daily Fiber) Allergy/AdvReac Type Severity Reaction Status Date / Time Iodinated Contrast Media (CT) Allergy Angioedema Verified 12/06/23 06:33 Eewcxaw-AQE-OmN Reductase AdvReac muscle pain Verified 12/06/23 06:33 Inhibitor (Harmzyy-Hwx-Pri Reductase Inhibitor) Family History Mother CAD (coronary artery disease) CVA (cerebral vascular accident) History of coronary artery bypass surgery Father Hypertension Brother CAD (coronary artery disease) Presence of stent in coronary artery Sister CAD (coronary artery disease) Cancer Pancreatic Sister CAD (coronary artery disease) Surgical History History of squamous cell carcinoma excision History of lithotripsy (~2019) History of colon resection History of tonsillectomy History of back surgery History of inguinal hernia repair History of placement of stent in LAD coronary artery (~04/05/15) History of coronary artery bypass surgery (~11/21/16) Hx of CABG Social History Smoking Status: Former smoker how long ago did patient quit smokin alcohol intake: current alcohol intake frequency: 0-2 drinks per day Alcohol type: wine details: 1 galls of wine daily substance use type: does not use caffeine: Yes Type: coffee Number of servings: 2 Review of Systems (Anesthesia) ROS Narrative System reviewed and no additional complaints, except as documented.
--- NOTE | 2023-12-06 07:42 | PCM.DC ---
Discharge Instructions Diet Discharge Diet: No restrictions Activity Return to work on:: 12/07/23July shower in (days): 0 Dressing / Incision Call your doctor if your incision/area has: Increased Pain/ Swelling Follow Up Care Please Follow Up With: Forest Jaquez MD When: 1 month Test Results: Test results from this visit will be discussed in further detail at your follow-up appointment, if applicable. Discharge Plan Admission Attending Provider: Forest Jaquez Primary Care Provider: Manish Gillespie Instructions Print Language: Sammarinese Discharge Orders/Prescriptions Prescriptions: No Action losartan 100 mg tablet 100 mg PO DAILY acetaminophen [Tylenol] 325 mg capsule 325 mg PO Q6H PRN (Reason: Pain Or Fever) apixaban 5 mg tablet 5 mg PO BID Qty: 180 4RF sildenafil [Viagra] 50 mg tablet 50 mg PO DAILY PRN (Reason: sexual activity) Rx Instructions: administer 30 minutes to 4 hours before activity aspirin 81 MG tablet,chewable 81 mg PO DAILY@0800 Patient Comments: Blood thinner for heart health omeprazole 20 mg capsule,delayed release(DR/EC) 20 mg PO SUWEFR Patient Comments: Acid reflux rosuvastatin 10 mg tablet 40 mg PO QHS multivitamin 1 EACH tablet 1 tab PO DAILY metoprolol tartrate 50 mg tablet 50 mg PO BID albuterol sulfate [ProAir HFA] 90 mcg/actuation Hfa Aerosol Inhaler 2 puff INHALATION Q6H PRN PRN (Reason: Shortness Of Breath) psyllium husk [Daily Fiber] 0.4 gram capsule 0.4 g PO DAILY amlodipine 2.5 mg tablet 2.5 mg PO DAILY Qty: 90 3RF Other Ambulatory Orders: 12 Lead EKG (Routine) Timeframe: 20231205 Location: None Selected Ordered By: Dr. Joshua Mendoza Referrals / Follow Up: Manish Gillespie MD [Primary Care Provider] - Disposition Disposition (needs filled in before D/C Order can be placed): Home, Self Care
--- NOTE | 2023-12-06 07:46 | PCM.OPRPT ---
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 direct laryngoscopy with use of operating telescope and injection of right vocal cord Surgeon: Forest Jaquez Type of Anesthesia: General Description of Procedure: on the day of the procedure, after appropriate informed consent was obtained, the patient was brought to the operating room and placed in supine position on the operating table. he was placed under general endotracheal anesthesia by the anesthesiologist. the endotracheal tube was secured, the eyes were taped. the table was rotated 90 degrees toward the surgeon. an acceptable view was unable to be attained using the olivia given his anatomy and dentition. the glide scope was inserted and a complete glottic view was obtained. the right paraglottic space at the junction of the anterior 2/3 and posterior 1/3 was injected with 0.8cc of prolaryn gel until the cord was medialized. the patient was extubated uneventfully. he was transferred to the PACU in stable condition.
--- NOTE | 2023-12-06 08:24 | PCM.POST.ANE ---
Anesthesia: Postop Eval I Current Vital Signs Temperature: 96.8 F Pulse Rate: 60 Blood Pressure: 151/66 Respiratory Rate: 16 Pulse Ox: 99 Oxygen Delivery Method: Room Air Assessment Airway patent: Yes Spontaneous unlabored respirations: Yes Mental status: Awake and Calm nausea: No Vomiting: No Anesthesia Complication: Yes Anesthesia Complication Comment:: Upper lip was nicked with intubation. No swelling. Bleeding has stopped. Fluid Hydration Crystalloid volume administer (ml): 800 Total IV fluid infused: 800 Progress Note Anesthesia document: Postop Eval 1 completed: Yes
[2023-12-06] MEDS: Acetaminophen 325 MG Tablet 650 MG PO (08:47)
--- NOTE | 2023-12-06 08:52 | PCM.POSTANE2 ---
Anesthesia Postop Eval I Sum Postop Eval Completion status Anesthesia document: Postop Eval 1 completed: Yes Anesthesia Postop Eval I Summary Anesthesia Postop Eval I Summary: Anesthesia Postop Eval I: Assessment Summary Airway patent Yes 12/06/23 08:27 Spontaneous unlabored Yes 12/06/23 08:27 respirations Mental status Awake,Calm 12/06/23 08:27 nausea No 12/06/23 08:27 Vomiting No 12/06/23 08:27 Anesthesia Postop Eval I: Fluid Summary Crystalloid volume administer 800 12/06/23 08:34 (ml) Colloids volume administered ( ml) Blood Product volume administered (ml) Total IV fluid infused 800 12/06/23 08:34 Anesthesia Postop Eval I: Summary Notes Anesthesia Complication Yes 12/06/23 08:27 Anesthesia Complication Upper lip was 12/06/23 08:34 Comment: nicked with intubation. No swelling. Bleeding has stopped. Post-operative progress note Anesthesia: Postop Eval II Evaluation Mental status: Awake Pain Level: 0 nausea: No Vomiting: No
== END 2023-12-06 09:12 | disposition home or self-care (01) ==
LOC: SDC 05:57 → AC 05:58
PROVIDERS: PCP Family Medicine; Referring Provider Otolaryngology; Visit Provider Otolaryngology
PROC: (CPT 31571; principal; 2023-12-06 07:15)
DX: J38.01 Paralysis of vocal cords and larynx, unilateral (principal); I48.0 Paroxysmal atrial fibrillation; E66.9 Obesity, unspecified; K21.9 Gastro-esophageal reflux disease without esophagitis; I25.10 Atherosclerotic heart disease of native coronary artery without angina pectoris; I10 Essential (primary) hypertension; Z79.82 Long term (current) use of aspirin; Z79.01 Long term (current) use of anticoagulants; Z79.51 Long term (current) use of inhaled steroids; Z79.899 Other long term (current) drug therapy; Z86.718 Personal history of other venous thrombosis and embolism; Z87.891 Personal history of nicotine dependence
CPT/HCPCS: 31571; 00320; 36415; 80053; 87081; 93005; J7120; J2405

== ENCOUNTER 2024-03-06 07:48 | Day surgery (SDC) | payer MEDICARE, OTHER, SELFPAY ==
[2024-03-01 07:00] LABS: Hematocrit 46.5 % (40-54); Mean Corp Hgb Conc 32.3 g/dL (32-36); Mean Corpuscular Hgb 31.1 pg (27.0-32.0); Mean Corpuscular Volume 96.5 fL (80-94); Mean Platelet Vol. 10.1 fl (6.2-12.0); Platelet Count 209 K/mm3 (150-450); RBC Distribution Width CV 12.7 % (11.6-14.6); RBC Distribution Width SD 45.7 fl (35.1-43.9); Red Blood Count 4.82 M/mm3 (4.6-6.2); White Blood Count 6.4 K/mm3 (4.4-11.0)
[2024-03-01 07:14] LABS: Anion Gap 4 (5-15); BUN 21 mg/dL (7-18); BUN/Creat Ratio 25.8 RATIO (10-20); Calcium,Total 8.9 mg/dL (8.5-10.1); Chloride 107 mmol/L (98-107); Creatinine, Serum 0.82 mg/dL (0.70-1.30); EST Glomerular Filtration Rate 98 mL/min (>60); Est Glom Filt Rate - Afr Amer 119 mL/min (>60); Glucose 103 mg/dL (74-106); Potassium 4.5 mmol/L (3.5-5.1); Sodium Level 139 mmol/L (136-145)
[2024-03-06] VITALS (8 sets, daily range): BP systolic 117–155; BP diastolic 56–72; PULSE 48–56; RESP 15–16; TEMP 36.1–36.4; O2SAT 97–100; BMI 36.4
[2024-03-06] MEDS: 0.9% Normal Saline (1000mL) 1,000 ML 15 ML IV (08:12)
--- NOTE | 2024-03-06 08:20 | PRE.ANES_ITS ---
ASA Classification* ASA Classification ASA Classification: 3 Assessment & Plan Anesthesia* Anesthesia Assessment Anesthesia Assessment: Discussed sedation and/or anesthesia options, risks, benefits, and alternatives with patient/parents/legal guardian/POA. Questions invited. The patient/parents/legal guardian/POA seems to understand and agrees to proceed with anesthesia plan. Reviewed the physical assessment, medical history, allergy history and patient home medications list prior to surgery/procedure/anesthetic and documented any changes. Performed airway and anesthesia risk assessments. Anesthesia Type Anesthesia Type: General Anesthesia Focused Assessment* Temperature: 97.3 F Pulse Rate: 48 Blood Pressure: 155/72 Respiratory Rate: 16 Pulse Ox: 100 Airway Assessment Mouth opens: >3 cm Mallampati Score: II Focused Labs Anesthesia Preop lab: CBC WBC 6.4 K/mm3 (4.4-11.0) 03/01/24 06:44 RBC 4.82 M/mm3 (4.6-6.2) 03/01/24 06:44 Hgb 15.0 g/dL (13.0-16.5) 03/01/24 06:44 Hct 46.5 % (40-54) 03/01/24 06:44 Plt Count 209 K/mm3 (150-450) 03/01/24 06:44 CHEMISTRY Potassium 4.5 mmol/L (3.5-5.1) 03/01/24 06:44 Sodium 139 mmol/L (136-145) 03/01/24 06:44 Magnesium 2.2 mg/dL (1.6-2.6) 03/29/19 15:00 BUN 21 mg/dL (7-18) H 03/01/24 06:44 Creatinine 0.82 mg/dL (0.70-1.30) 03/01/24 06:44 Glucose 103 mg/dL (74-106) 03/01/24 06:44 POC Glucose 92 mg/dL (70-110) 02/09/19 05:34 TSH 2.27 uIU/mL (0.358-3.74) 03/29/19 15:00 COAG PT 12.1 SECONDS (11.7-14.9) 02/09/19 05:30 Pre-Assessment Diagnosis/Proposed Procedure Planned Operative Procedure(s): (R) Vocal Cord Injection Anesthesia History Anesthesia History - service attendant: Anesthesia History - service attendant Hx Hospitalization Yes: 10/18 CELLULITIS 02/29/24 14:57 Any Problems With Anesthesia No 02/29/24 14:57 Cholinesterase deficiency No 02/29/24 14:57 You/Your Family Experience No 02/29/24 14:57 fever (hyperthermia) with Relationship Recent Exposure to Contagious No 03/06/24 08:05 Disease Does patient have nerve No 02/29/24 14:57 stimulator Patient instructed to have device shut off --Does patient have Pacemaker No 03/06/24 08:05 or ICD? When Was Last Pacemaker Check QUESTION #4 FULL TEXT: You/Your Family Experience fever (hyperthermia) with Anesthesia Last Oral Intake Last Oral intake: Last Oral Intake NPO since 03:45 03/06/24 08:05 Meds taken in AM with sips of water? Meds patient instructed to take am of surgery PONV PONV - service attendant: PONV - service attendant Female No 02/29/24 14:57 HX of Motion Sickness No 02/29/24 14:57 HX of N/V After Surgery No 02/29/24 14:57 Non-Smoker Yes 02/29/24 14:57 Duration of Surgery greater No 02/29/24 14:57 than 60 minutes Number of Risk Factors 1 02/29/24 14:57 PONV Score Low Risk 02/29/24 14:57 Height & Weight Height & Weight: Anesthesia: Height & Weight Height 5 ft 6 in 03/06/24 08:05 Weight: 102.512 kg 03/06/24 08:05 Body Mass Index (BMI) 36.4 03/06/24 08:05 Respiratory Assessment Respiratory Assessment - service attendant: Respiratory Tract Infection Hx - service attendant Hx Respiratory Tract Infection No 02/29/24 14:57 STOP Sleep Apnea STOP Sleep Apnea - service attendant: STOP Sleep Apnea - service attendant Hx Hypertension Yes: CONTROLLED WITH MED 02/29/24 14:57 Hx Sleep Apnea No 02/29/24 14:57 CPAP No 02/29/24 14:57 BIPAP No 02/29/24 14:57 Do you snore loudly (louder No 02/29/24 14:57 than talking or can be heard Do you often feel tired/ No 02/29/24 14:57 fatigued/ sleepy during daytime? Has anyone observed you stop No 02/29/24 14:57 breathing during sleep? STOP Results Negative 02/29/24 14:57 QUESTION #5 FULL TEXT : Do you snore loudly (louder than talking or can be heard through closed doors)? 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 Specify any problems Hx of Preganancy in last 3 N/A 02/29/24 14:57 Months Nurse Filling Out Transfusion VCHRISTIN 02/29/24 14:57 & Questions: Date: 02/29/24 02/29/24 14:57 Time: 14:58 02/29/24 14:57 Patient unable to answer at this time (ie. confused, unrespo /Reproduction History /Reproductive History - service attendant: /Reproductive Hx- service attendant Hx Now Gestational Age (in weeks): EDC: Hx Hx Para Hx Section SAB No 02/29/24 14:57 Active Medications Active Medications: Current Medications Generic Name Dose Route Start Last Admin Trade Name Freq PRN Reason Stop Dose Admin Sodium Chloride 1,000 mls @ 15 mls/hr 03/06/24 07:55 03/06/24 08:12 IV 03/11/24 21:14 15 mls/hr .Q48H ROBERTO Administration Protocol PFSH Medical History Wears glasses Wears hearing aid Loss of hearing Cancer Alcohol use History of kidney stones High cholesterol Easy bruising History of diverticulitis History of edema History of atrial fibrillation Former smoker History of echocardiogram History of stress test Cardiology follow-up encounter Obesity Arthritis Carpal tunnel syndrome, bilateral Paroxysmal atrial fibrillation Diverticulitis Postoperative atrial fibrillation Essential hypertension Atherosclerotic heart disease of [place] coronary artery without angina pectoris Paroxysmal A-fib TIA (transient ischemic attack) Chest pain CAD (coronary artery disease) GERD (gastroesophageal reflux disease) BPH (benign prostatic hyperplasia) Hyperlipidemia Hypertension Home Medications ?Medication ?Instructions ?Recorded ?Last Taken ?Type aspirin 81 mg chewable tablet 81 mg PO DAILY@0800 heart health 03/24/14 02/27/24 History multivitamin 1 tab PO DAILY nutrition support 09/22/17 10/09/23 History metoprolol tartrate 50 mg tablet 50 mg PO BID BP 04/25/19 03/06/24 03:45 History acetaminophen 325 mg capsule 325 mg PO Q6H PRN Pain Or Fever 04/26/19 Unknown History (Tylenol) losartan 100 mg tablet 100 mg PO DAILY BP 04/26/19 03/06/24 History apixaban 5 mg tablet 5 mg PO BID blood thinner #180 tabs 04/27/19 03/03/24 Rx albuterol sulfate 90 mcg/actuation 2 puff inhalation Q6H PRN PRN 11/22/20 Unknown History aerosol inhaler (ProAir HFA) Shortness Of Breath sildenafil 50 mg tablet (Viagra) 50 mg PO DAILY PRN sexual activity 02/26/21 10/03/23 History omeprazole 20 mg capsule,delayed 20 mg PO SUWEFR GERD 12/10/21 10/07/23 History release rosuvastatin 10 mg tablet 40 mg PO QHS cholesterol 03/11/23 10/08/23 History amlodipine 2.5 mg tablet 2.5 mg PO DAILY #90 tabs 07/04/23 10/08/23 Rx psyllium husk 0.4 gram capsule 0.4 g PO DAILY 12/01/23 Unknown History (Daily Fiber) Allergy/AdvReac Type Severity Reaction Status Date / Time Iodinated Contrast Media (CT) Allergy Angioedema Verified 03/06/24 08:04 Pwmkylk-[id number]-SmS Reductase AdvReac muscle pain Verified 03/06/24 08:04 Inhibitor (Rgnigcs-Gyu-Gjm Reductase Inhibitor) Family History Mother CAD (coronary artery disease) CVA (cerebral vascular accident) History of coronary artery bypass surgery Father Hypertension Brother CAD (coronary artery disease) Presence of stent in coronary artery Sister CAD (coronary artery disease) Cancer Pancreatic Sister CAD (coronary artery disease) Surgical History Hx of surgical procedure History of squamous cell carcinoma excision History of lithotripsy (~2019) History of colon resection History of tonsillectomy History of back surgery History of inguinal hernia repair History of placement of stent in LAD coronary artery (~04/05/15) History of coronary artery bypass surgery (~11/21/16) Hx of CABG Social History Smoking Status: Former smoker how long ago did patient quit smokin alcohol intake: current alcohol intake frequency: 0-2 drinks per day Alcohol type: wine details: 1 galls of wine daily substance use type: does not use caffeine: Yes Type: coffee Number of servings: 2 Review of Systems (Anesthesia) ROS Narrative System reviewed and no additional complaints, except as documented.
--- NOTE | 2024-03-06 09:29 | DCINST_ITS ---
Discharge Instructions Diet Discharge Diet: No restrictions DC O2, CPAP, BIPAP needs Additional Home O2 Discharge instructions: No Dressing / Incision Discharge Activity: Return to Normal Activity Dressing / Incision Call your doctor if your incision/area has: Increased Pain/ Swelling Follow Up Care Please Follow Up With: Forest Jaquez MD When: 1 month Test Results: Test results from this visit will be discussed in further detail at your follow- up appointment, if applicable. Discharge Plan Admission Attending Provider: Forest Jaquez Primary Care Provider: Manish Gillespie Instructions Print Language: Bahraini Discharge Orders/Prescriptions Prescriptions: No Action losartan 100 mg tablet 100 mg PO DAILY acetaminophen [Tylenol] 325 mg capsule 325 mg PO Q6H PRN (Reason: Pain Or Fever) apixaban 5 mg tablet 5 mg PO BID Qty: 180 4RF Patient Comments: LAST DOSE 03/03/24 sildenafil [Viagra] 50 mg tablet 50 mg PO DAILY PRN (Reason: sexual activity) Rx Instructions: administer 30 minutes to 4 hours before activity aspirin 81 MG tablet,chewable 81 mg PO DAILY@0800 Patient Comments: Blood thinner for heart health omeprazole 20 mg capsule,delayed release(DR/EC) 20 mg PO SUWEFR Patient Comments: Acid reflux rosuvastatin 10 mg tablet 40 mg PO QHS multivitamin 1 EACH tablet 1 tab PO DAILY metoprolol tartrate 50 mg tablet 50 mg PO BID albuterol sulfate [ProAir HFA] 90 mcg/actuation Hfa Aerosol Inhaler 2 puff INHALATION Q6H PRN PRN (Reason: Shortness Of Breath) psyllium husk [Daily Fiber] 0.4 gram capsule 0.4 g PO DAILY amlodipine 2.5 mg tablet 2.5 mg PO DAILY Qty: 90 3RF Referrals / Follow Up: Manish Gillespie MD [Primary Care Provider] - Disposition Disposition (needs filled in before D/C Order can be placed): Home, Self Care
--- NOTE | 2024-03-06 09:30 | OP.PCM_ITS ---
Operative Report (Standard) Operative Information Date of Procedure: 03/06/24 Pre-Operative Diagnosis: vocal cord immobility, right Post-Operative Diagnosis: vocal cord immobility, right Surgery/Procedure Performed: vocal cord injection, right cellar supervisor: No Type of Anesthesia: General RN Documented Start/Stop Times: Operation Date: 03/06/24 09:20 Case Time Into Pre-Op 03/06/24 07:51 Out of Pre-Op 03/06/24 09:16 Anesthesia Start 03/06/24 09:19 Into Room 03/06/24 09:19 Procedure Start Time: 09:31 Procedure Stop Time: 09:41 Select all DRAINS/GRAFTS/IMPLANTS that apply: None Estimated Blood Loss: 0 Specimen collected: No Description of surgery: on the day of the procedure, after appropriate informed consent was obtained, the patient was brought to the operating room and placed in supine position on the operating table. he was placed under general endotracheal anesthesia by the anesthesiologist. the endotracheal tube was secured, the eyes were taped. the table was rotated 90 degrees toward the surgeon. given the patients prior difficulty with direct visualization, the glide scope was used to obtain a view of the glottis. the right paraglottic space at the junction of the anterior 2/3 and posterior 1/3 of the vocal cord was injected with 0.8cc of prolaryn gel. he was awoken from anesthesia and transferred to the PACU in stable condition. Surgical Findings: n/a Complications Complications: No
--- NOTE | 2024-03-06 09:55 | PCM.POST.ANE ---
Anesthesia: Postop Eval I Current Vital Signs Temperature: 97.6 F Pulse Rate: 55 Blood Pressure: 118/63 Respiratory Rate: 16 Pulse Ox: 98 Oxygen Delivery Method: Room Air Assessment Airway patent: Yes Spontaneous unlabored respirations: Yes Mental status: Awake and Calm nausea: No Vomiting: No Anesthesia Complication: No Fluid Hydration Crystalloid volume administer (ml): 600 Total IV fluid infused: 600 Progress Note Anesthesia document: Postop Eval 1 completed: Yes
--- NOTE | 2024-03-06 10:27 | POSTOPAN2_ITS ---
Anesthesia Postop Eval I Sum Postop Eval Completion status Anesthesia document: Postop Eval 1 completed: Yes Anesthesia Postop Eval I Summary Anesthesia Postop Eval I Summary: Anesthesia Postop Eval I: Assessment Summary Airway patent Yes 03/06/24 09:56 SPECIAL EDUCATION AIDE.[email or web address] Spontaneous unlabored Yes 03/06/24 09:56 SPECIAL EDUCATION AIDE.GDOTT respirations Mental status Awake,Calm 03/06/24 09:56 SPECIAL EDUCATION AIDE.GDOTT nausea No 03/06/24 09:56 SPECIAL EDUCATION AIDE.GDOTT Vomiting No 03/06/24 09:56 SPECIAL EDUCATION AIDE.GDOTT Anesthesia Postop Eval I: Fluid Summary Crystalloid volume administer 600 03/06/24 09:56 SPECIAL EDUCATION AIDE.GDOTT (ml) Colloids volume administered ( ml) Blood Product volume administered (ml) Total IV fluid infused 600 03/06/24 09:56 SPECIAL EDUCATION AIDE.GDOTT Anesthesia Postop Eval I: Summary Notes Anesthesia Complication No 03/06/24 09:56 SPECIAL EDUCATION AIDE.GDOTT Anesthesia Complication Comment: Post-operative progress note Anesthesia: Postop Eval II Evaluation Mental status: Awake and Calm Pain Level: 1 nausea: No Vomiting: No Complications Anesthesia Complication: No
--- NOTE | 2024-03-06 10:27 | PCM.POSTANE2 ---
Anesthesia Postop Eval I Sum Postop Eval Completion status Anesthesia document: Postop Eval 1 completed: Yes Anesthesia Postop Eval I Summary Anesthesia Postop Eval I Summary: Anesthesia Postop Eval I: Assessment Summary Airway patent Yes 03/06/24 09:56 STUDY SPECIALIST.[email or web address] Spontaneous unlabored Yes 03/06/24 09:56 STUDY SPECIALIST.GDOTT respirations Mental status Awake,Calm 03/06/24 09:56 STUDY SPECIALIST.GDOTT nausea No 03/06/24 09:56 STUDY SPECIALIST.GDOTT Vomiting No 03/06/24 09:56 STUDY SPECIALIST.GDOTT Anesthesia Postop Eval I: Fluid Summary Crystalloid volume administer 600 03/06/24 09:56 STUDY SPECIALIST.GDOTT (ml) Colloids volume administered ( ml) Blood Product volume administered (ml) Total IV fluid infused 600 03/06/24 09:56 STUDY SPECIALIST.GDOTT Anesthesia Postop Eval I: Summary Notes Anesthesia Complication No 03/06/24 09:56 STUDY SPECIALIST.GDOTT Anesthesia Complication Comment: Post-operative progress note Anesthesia: Postop Eval II Evaluation Mental status: Awake and Calm Pain Level: 1 nausea: No Vomiting: No Complications Anesthesia Complication: No
== END 2024-03-06 11:06 | disposition home or self-care (01) ==
LOC: SDC 07:48 → AC 07:49
PROVIDERS: PCP Family Medicine; Referring Provider Otolaryngology; Visit Provider Otolaryngology
PROC: (CPT 31513; principal; 2024-03-06 09:05)
DX: J38.01 Paralysis of vocal cords and larynx, unilateral (principal); I10 Essential (primary) hypertension; E78.5 Hyperlipidemia, unspecified; K21.9 Gastro-esophageal reflux disease without esophagitis; Z79.01 Long term (current) use of anticoagulants; Z79.82 Long term (current) use of aspirin; Z79.899 Other long term (current) drug therapy; Z87.891 Personal history of nicotine dependence
CPT/HCPCS: 31513; 00320; 36415; 80048; 85027; J2405

== ENCOUNTER 2024-09-02 21:07 | Emergency (ER) | payer MEDICARE, OTHER, SELFPAY ==
[2024-09-02 21:09] VITALS: BP 183/78; PULSE 72; RESP 18; TEMP 36.9; O2SAT 95; BMI 37.8
--- OUTSIDE RECORDS SUMMARY | 2024-09-02 21:38 | XMS RPT_ITS | CCD ---
Author Organization [facility] Care Team Providers Care Health Careers Instructor Name Role Phone MAMTA River, Asuncion Richards Unavailable SAQIB MARTINEZ Unavailable Unavailable [facility] Unavailable Unavailable SAQIB MARTINEZ Unavailable Unavailable SAQIB MARTINEZ Unavailable Unavailable Terry Epperson Unavailable Unavailable Jason Cook MD Primary Care Provider Joey, Dr. Hammond Primary Care Provider Joey, Dr. Hammond Referring Provider Dr. Caleb Dietz Attending Provider Dr. Caleb Dietz Referring Provider Dr. Caleb Dietz Other Provider Jason Cook MD Primary Care Provider Jason Cook MD Primary Care Provider Dr. Jason Cook Primary Care Provider Joey, Dr. Hammond Referring Provider Elizabeth PREPRESS TECHNICIAN, MINH Higginbotham Attending Provider Joey, Dr. Hammond Primary Care Provider Joey, Dr. Hammond Referring Provider Elizabeth PREPRESS TECHNICIAN, MINH Higginbotham Attending Provider Joey, Dr. Hammond Primary Care Provider Joey, Dr. Hammond Referring Provider Fabiano TEJEDA, PREPRESS TECHNICIANGabrielaC Tonio Attending Provider Jason Cook MD Primary Care Provider Jessi COMER, Che Edward Unavailable Abilio ALCALA MD, Jersey Jackson Primary Care Provider Anais vailable JAIR FIELDS Referring Unavailab le JOEY, JASON J Primary Care Unavailable CURTIS TINOCO Referring Unavail able JOEY, JASON J Primary Care Unavailable CURTIS TINOCO Attending Unavail able CURTIS TINOCO Referring Unavail able JOEY, JASON J Primary Care Unavailable CURTIS TINOCO Admitting Unavail able CURTIS TINOCO Attending Unavail able CURTIS TINOCO Referring Unavail able JOEY, JASON J Primary Care Unavailable JOEY, JASON J Primary Care Unavailable Haagen MANAGER POKER.PRODUCTION TEAM MANAGER, Neelam Unavailable Suppan MANAGER POKER.PRODUCTION TEAM MANAGER, Elaina A Unavailable [phone] Suppan MANAGER POKER.PRODUCTION TEAM MANAGER, Elaina A Unavailable Francisco Colon Referring Unavailable [place] Primary Care Unavailable Dhaval Gaines Attending Unavailable [place] Primary Care Unavailable Jair Jaquez Attending Unavailabl e Jair Jaquez Referring Unavailabl e [place] Primary Care Unavailable Jair Jaquez Attending Unavailabl e Jair Jaquez Referring Unavailabl e Dhaval Cantor Attending Unavailable Dhaval Cantor Admitting Unavailable [facility] Primary Care Unavailable Catrachito Moreno Attending Unavailable [facility] Primary Care Unavailable [place] Primary Care Unavailable Deangelo Strange Attending Unavailable Deangelo Strange Referring Unavailable [place] Primary Care Unavailable Roof PREPRESS TECHNICIAN, Irving Higginbotham Attending Unavailable Roof PREPRESS TECHNICIAN, Irving H Referring Unavailable [facility] Primary Care Unavailable Roof PREPRESS TECHNICIAN, Irving Higginbotham Attending Unavailable Roof PREPRESS TECHNICIAN, Irving H Referring Unavailable [place] Primary Care Unavailable Alec Zavala Attending Unavailable Jair Jaquez Referring Unavailabl e Dhaval Cantor Admitting Unavailable [place], Jason Primary Care Unavailable Dhaval Cantor Consulting Unavailable Dhaval Cantor Attending Unavailable [facility], JASON Primary Care Unavailable ELAINA AMEZCUA Attending Unavailable JOEY, JASON J Primary Care Unavailable CURTIS TINOCO Referring Unavail able JOEY, JASON J Primary Care Unavailable [facility], JASON J Referring Unavailable JOSH LYNCH Attending Unavailable [facility], JASON Lopez Primary Care Unavailable NICHOLE NEWTON Referring Unavailable NICHOLE NEWTON Attending Unavailable JOEY, JASON Lopez Primary Care Unavailable JOEY, JASON Lopez Referring Unavailable NEWTONNICHOLE Attending Unavailable JOEY, JASON Lopez Primary Care Unavailable SLEIK, KHALED MELOUD Referring Unavailable JOEY, JASON Lopez Primary Care Unavailable CINTHYA ORTIZ Attending Unavailable JOEY, JASON Lopez Primary Care Unavailable JOEY, JASON Lopez Referring Unavailable JESSICA MORAN Attending Unavailable JOEY, JASON Lopez Primary Care Unavailable JAIR FIELDS Referring Unavailab ROCK Ansari Attending Unavailable JOEY, JASON Lopez Primary Care Unavailable JOEY, JASON Lopez Referring Unavailable JOEY, JASON Lopez Primary Care Unavailable JOEY, JASON Lopez Referring Unavailable JOEY, JASON Lopez Primary Care Unavailable CURTIS TINOCO Referring Unavail able JOEY, JASON Lopez Primary Care Unavailable CURTIS TINOCO Referring Unavail able JOEY, JASON Lopez Primary Care Unavailable JAIR FIEDLS Attending Unavailab le JOEY, JASON Lopez Primary Care Unavailable SLEIK, KHALED MELOUD Referring Unavailable SLEIK, FERMIND ZAIRED Attending Unavailable JOEY, JASON Lopez Primary Care Unavailable LEIGHTON WARD Attending Unavailable JOEY, JASON Lopez Primary Care Unavailable JAIR FIELDS Referring Unavailab le JOEY, JASON Lopez Primary Care Unavailable JOEY, JASON Lopez Attending Unavailable JOEY, JASON Lopez Primary Care Unavailable SLEIK, KHALED MELOUD Referring Unavailable JOEY, JASON Lopez Primary Care Unavailable JOEY, JASON Lopez Attending Unavailable JOEY, JASON Lopez Primary Care Unavailable ELAINA AMEZCUA Referring Unavailable JOEY, JASON Lopez Primary Care Unavailable JOEY, JASON Lopez Referring Unavailable JOEY, JASON Lopez Primary Care Unavailable JOEY, JASON Lopez Referring Unavailable JOEY, JASON Lopez Primary Care Unavailable SLEIK, KHALED MELOUD Referring Unavailable JOEY, JASON Lopez Primary Care Unavailable SLEIK, KHALED MELOUD Referring Unavailable JOEY, JASON Lopez Primary Care Unavailable JOEY, JASON Lopez Attending Unavailable JOEY, JASON Lopez Primary Care Unavailable SLEIK, KHALED MELOUD Referring Unavailable JOEY, JASON Lopez Primary Care Unavailable ELAINA AMEZCUA Attending Unavailable JOEY, JASON Lopez Primary Care Unavailable LEIGHTON WARD Attending Unavailable Allergies Allergy Classification Reported Allergen(s) Allergy Type Date of Onset Reaction(s) Facility HMG-CoA Reductase Inhibitors (statins) (2 sources) atorvastatin Drug Allergy 03-06-20 [place] Iodine (and Iodine containting drugs) (1 source) Iodine Drug Allergy 06-04-19 Angioedema [place] Work Phone: (20 sources) atorvastatin; Translations: [ATORVASTATIN CALCIUM] Drug Allergy 03-06-20 07 [facility] Repository (20 sources) Hmg-Coa Reductase Inhibitors (Statins); Translations: [ZVROBWP-FMH-SVH REDUCTASE INHIBITORS] Propensity to adverse reactions (disorder) 04-05-19 12 Other: See Comments, Myalgia [facility] Repository (20 sources) lovastatin; Translations: [LOVASTATIN] Drug Allergy 03-06-20 [facility] Repository (20 sources) Iodine; Translations: [IODINE] Drug Allergy 06-04-19 Angioedema [place] Work Phone: (7 sources) Triiodobenzoic Acids Allergy to substance 12-11-19 Angioedema [facility] (7 sources) Ywiekkp-Sbk-Mdh Reductase Inhibitor Propensity to adverse reactions 12-11-19 muscle pain [facility] (1 source) Iodinated Contrast Media Drug allergy (disorder) 03-06-20 [facility] Repository (1 source) Zqxdpxe-Dzl-Srm Reductase Inhibitor Drug allergy (disorder) 03-06-20 [facility] Repository Medications Current Medications Medication Drug Class(es) Dates Sig (Normalized) Sig (Original) acetaminophen 325 mg oral capsule (20 sources) Start: 04-26-2019 take 1 capsule by mouth every six hours Acetaminophen (Tylenol) 325 mg capsule Active 325 MG PO EVERY 6 HOURS April 26, 2019 1:00am acetaminophen (T YLENOL ORAL) Take by mouth as needed. Active acetaminophen (T YLENOL ORAL) Take by mouth as needed. 0 Active Comment on above: Take by mouth as nee ded. acetaminophen 325 mg / oxyCODONE hydrochloride 5 mg oral tablet (1 source) Opioid Agonist Start: 4 End: 4 take 1 tablet by mouth every eight hours as needed oxyCODONE-acetamino phen (PERCOCET) 5-325 mg tablet Indications: History of kidney stones Take 1 tablet by mouth every 8 hours as needed for up to 5 days. 9 tablet 0 09/15/2023 09/20/2023 Active [id number] 200 actuat albuterol 0.09 mg/actuat metered dose inhaler (20 sources) beta2-Adrenergic Agonist Start: 1 take 1 puff(s) by inhalation every six hours as needed Albuterol Sulfate (Proair Hfa) 90 mcg/actuation Hfa Aerosol Inhaler Active 2 PUFF INHALATION EVERY 6 HOURS NEEDED November 22, 2020 12:00am Start: 10-10-2020 End: 08-18-2022 take 2 puff(s) by inhalation every six hours as needed for wheezing albuterol HFA (PROVENTIL HFA, VENTOLIN HFA) 90 mcg/actuation inhaler Indications: SOB (shortness of breath) Inhale 2 Puffs as instructed every 6 hours as needed for wheezing/shortness of breath. 1 Each 2 05/20/2022 Active Comment on above: Inhale 2 Puffs as in structed every 6 hours as needed for wheezing/shortness of breath. apixaban 5 mg oral tablet (20 sources) Factor Xa Inhibitor Start: 0 End: 2 take 1 tablet by mouth twice daily apixaban (ELIQUIS) 5 mg tab(s) Take 1 tablet by mouth twice daily. 180 tablet 3 06/05/2021 Active Start: 03-29-2019 End: 04-26-2019 take 10 mg by mouth twice daily, then take 5 mg by mouth twice daily Apixaban Discontinued 5 MG PO TWICE A DAY 74 March 29, 2019 1:00am April 26, 2019 11:36am 10 mg twice a day for the first week. Then 5 mg twice a day. Comment on above: Take 1 tablet by isra th twice daily. aspirin 81 mg chewable tablet (20 sources) Platelet Aggregation Inhibitor, Nonsteroidal Anti-inflammatory Drug Start: 03-24-20 14 take 1 tablet by mouth once daily aspirin 81 mg chewable tablet Take 1 tablet by mouth once daily. 60 tablet 05/04/2017 Active Comment on above: Take 1 tablet by isra th once daily. azithromycin 250 mg oral tablet (1 source) Macrolide Antimicrobial Start: 10-20-19 End: 10-25-19 azithromycin (ZITHROMAX Z-MIRACLE) 250 mg tablet Indications: Cellulitis of skin Take 2 tablets day one, then, 1 tablet daily until gone. 6 tablet 0 10/20/2023 10/25/2023 Active cephalexin 500 mg oral capsule (5 sources) Cephalosporin Antibacterial Start: 10-27-19 End: 11-06-19 take 1 capsule by mouth twice daily cephALEXin (KEFLEX) 500 mg capsule Indications: Cellulitis of skin Take 1 capsule by mouth two times a day for 10 days. 20 capsule 0 10/27/2023 11/06/2023 Active Start: 09-12-2023 End: 09-19-2023 take 1 capsule by mouth three times daily cephALEXin (KEFLEX) 500 mg capsule Take 1 capsule by mouth three times a day for 7 days. 21 capsule 0 09/12/2023 09/19/2023 Active docusate sodium 50 mg / sennosides, [facility] 8.6 mg oral tablet (1 source) Start: 09-15-2023 End: 09-20-2023 take 2 tablets by mouth twice daily senna-docusate (SENOKOT-S) 8.6-50 mg per tablet Take 2 tablets by mouth two times a day for 5 days. 20 tablet 0 09/15/2023 09/20/2023 Active furosemide 20 mg oral tablet (8 sources) Loop Diuretic Start: 10-20-2023 End: 11-30-2023 take 1 tablet by mouth once daily furosemide (LASIX) 20 mg tablet Indications: Cellulitis of skin Take 1 tablet by mouth once daily. 30 tablet 10/20/2023 11/30/2023 Discontinued hydroCHLOROthiazide 25 mg oral tablet (18 sources) Thiazide Diuretic Start: 04-16-2024 End: 04-11-2025 take 1 tablet by mouth once daily hydroCHLOROthiazide 25 mg tablet Take 1 tablet by mouth once daily. 90 tablet 1 06/29/2024 12/26/2024 Active losartan potassium 100 mg oral tablet (20 sources) Angiotensin 2 Receptor Isadora Start: 04-26-2019 End: 06-04-2024 take 1 tablet by mouth once daily losartan (COZAAR) 100 mg tablet Indications: Essential hypertension, benign Take 1 tablet by mouth once daily. 90 tablet 3 06/04/2024 Active Start: 09-22-2017 End: 04-26-2019 take 50 mg by mouth once daily Losartan Discontinued 5 0 MG PO DAILY September 22, 2017 12:00am April 26, 2019 11:33am Comment on above: Take 1 tablet by isra th once daily. metoprolol tartrate 50 mg oral tablet (20 sources) beta-Adrenergic Isadora Start: 8 End: 5 take 1 tablet by mouth twice daily metoprolol tartrate, short acting, (LOPRESSOR) 50 mg tablet Indications: ASHD (arteriosclerotic heart disease) Take 1 tablet by mouth two times a day. 180 tablet 3 04/23/2024 Active Comment on above: Take 1 tablet by isra th twice daily. Take 1 tablet by isra th two times a day. Multivitamin preparation (7 sources) Start: 8 take 1 tablet by mouth once daily Multivitamin Active 1 TABLET PO DAILY September 22, 2017 12:00am omeprazole 20 mg delayed release oral capsule (20 sources) Proton Pump Inhibitor Start: 2 End: 6 take 1 capsule by mouth once daily omeprazole (PRILOSEC) 20 mg capsule Take 1 capsule by mouth once daily. 90 capsule 1 05/07/2024 05/07/2025 Active Start: 04-16-2021 take 1 capsule by mo [facility] every other day omeprazole (PRILOSEC) 20 mg capsule TAKE 1 CAPSULE BY MOUTH Every other day 45 capsule 1 04/16/2021 Active Start: 04-14-2020 End: 12-10-2021 take 20 mg by mouth two times weekly Omeprazole Discontinued 20 MG PO TWICE A WEEK April 14, 2020 2:03pm December 10, 2021 10:12am Start: 03-24-2014 End: 04-09-2021 omeprazole (PRILOSEC) 20 mg capsule TAKE 1 CAPSULE BY MOUTH DAILY BEFORE BREAKFAST. 1/2 HR BEFORE MEAL every other day 90 capsule 1 03/04/2020 04/09/2021 Discontinued Comment on above: TAKE 1 CAPSULE BY MO UTH Every other day Take 1 capsule by mo uth once daily. predniSONE 20 mg oral tablet (10 sources) Start: 05-30-2024 End: 06-04-2024 take 1 tablet by mouth once daily predniSONE (DELTASONE) 20 mg tablet Indications: Pain of right upper arm Take 1 tablet by mouth once daily for 5 days. 5 tablet 05/30/2024 06/04/2024 Active Start: 06-01-2019 End: 10-03-2019 take 60 mg by mouth once daily Prednisone Discontinued 60 MG PO DAILY June 01, 2019 1:00am October 03, 2019 11:27am Psyllium Seed-Sucrose (METAMUCIL, SUGAR,) (20 sources) Psyllium Seed-Rogers crose (METAMUCIL, SUGAR,) Take by mouth once daily. Active rosuvastatin calcium 40 mg oral tablet (20 sources) HMG-CoA Reductase Inhibitor Start: End: take 1 tablet by mouth once daily at bedtime rosuvastatin (CRESTOR) 40 mg tablet Take 1 tablet by mouth daily at bedtime. 90 tablet 3 05/07/2024 Active Start: 05-22-2019 End: 05-02-2021 take 1 tablet by mouth once daily at bedtime rosuvastatin (CRESTOR) 40 mg tablet Take 1 tablet by mouth daily at bedtime. 90 tablet 3 05/12/2020 05/02/2021 Discontinued Start: 10-30-2016 End: 03-11-2023 take 40 mg by mouth at bedtime Rosuvastatin Active 40 MG PO AT BEDTIME March 11, 2023 10:07am Comment on above: Take 1 tablet by isra th daily at bedtime. sildenafil 50 mg oral tablet (20 sources) Phosphodiesterase 5 Inhibitor Start: 021 End: 024 sildenafil (VIAGRA) 50 mg tablet Take 1 tablet by mouth as needed. 30 tablet 5 06/06/2023 Active Comment on above: Take 1 tablet by isra th as needed. therapeutic multivitamin (THERA VITAMIN) tablet (20 sources) Start: 017 take 1 tablet by mouth once daily at breakfast therapeutic multivitamin (THERA VITAMIN) tablet Take 1 tablet by mouth daily with breakfast. 0 11/21/2016 Active Comment on above: Take 1 tablet by isra th daily with breakfast. Completed/Discontinued Medications Medication Drug Class(es) Dates Sig (Normalized) Sig (Original) amLODIPine 2.5 mg oral tablet (20 sources) Dihydropyridine Calcium Channel Isadora Start: 04-26-2019 End: 04-11-2025 take 1 tablet by mouth once amLODIPine (NORVASC) 2.5 mg tablet Take 1 tablet by mouth once daily. Per Dr. Dietz 90 tablet 3 04/11/2024 04/16/2024 Discontinued (Course of therapy completed) Comment on above: Take 1 tablet by isra once daily. Per Dr. Dietz Benzocaine (1 source) Standardized Chemical Allergen Start: 06-19-2024 End: 06-19-2024 1 Yancey, TOPICAL, DIRECTED, Starting on Tue06/19/24 at 1030, Until Tue06/19/24 at 1429, Dosing as directed for intraprocedural use only - Pharmaceutical Waste: Aerosol -, Intraprocedure calcium chloride 0.0014 meq/ml / potassium chloride 0.004 meq/ml / sodium chloride 0.103 meq/ml / sodium lactate 0.028 meq/ml injectable solution (1 source) Start: 06-19-2024 End: 06-19-2024 take 30 mL intravenously every hour 30 mL/hr, INTRAVENOUS, CONTINUOUS, Starting on Tue06/19/24 at 1000, Until Tue06/19/24 at 1039, Preprocedure clopidogrel 75 mg oral tablet (2 sources) P2Y12 Platelet Inhibitor Start: 11-05-2016 take 1 tablet by mouth once daily PLAVIX 75 MG TABS One tablet by mouth daily CLOPIDOGREL BISULFATE [id number] Asuncion River PA-C CPAP (9 sources) Start: 06-01-2024 End: 07-26-2024 CPAP Indications: JONAH (obstructive sleep apnea) Initiate Auto PAP @ 5-20 cm of water with humidification. Mask (per patient preference) optional chin strap (if indicated) , filters, tubing, humidifier and lifetime supplies. 1 Each 06/01/2024 07/26/2024 Discontinued Start: 06-01-2024 CPAP Indicatio ns: JONAH (obstructive sleep apnea) Initiate Auto PAP @ 5-20 cm of water with humidification. Mask (per patient preference) optional chin strap (if indicated) , filters, tubing, humidifier and lifetime supplies. 1 Each 06/01/2024 Active diphenhydrAMINE (1 source) Histamine-1 Receptor Antagonist Start: 06-19-2024 End: 06-19-2024 12.5-50 mg, INTRAVENOUS, DIRECTED, Starting on Tue06/19/24 at 1030, Until Tue06/19/24 at 1429, DOSING DIRECTED BY PHYSICIAN FOR PROCEDURAL SEDATION ONLY, Intraprocedure doxycycline monohydrate 100 mg oral tablet (2 sources) Tetracycline-class Drug Start: 04-05-2022 End: 04-15-2022 take 1 tablet by mouth twice daily doxycycline monohydrate 100 mg tablet Indications: Bronchitis Take 1 tablet by mouth twice daily for 10 days. 20 tablet 04/05/2022 04/15/2022 Comment on above: Take 1 tablet by isra twice daily for 10 days. 1 ml fentaNYL 0.05 mg/ml injection (1 source) Opioid Agonist Start: 06-19-2024 End: 06-19-2024 25-100 mcg, INTRAVENOUS, DIRECTED, Starting on Tue06/19/24 at 1030, Until Tue06/19/24 at 1429, DOSING DIRECTED BY PHYSICIAN FOR PROCEDURAL SEDATION ONLY, Intraprocedure ibuprofen 200 mg oral tablet (8 sources) Nonsteroidal Anti-inflammatory Drug Start: 04-14-2020 End: 12-10-2021 take 1 tablet by mouth every six hours Ibuprofen (Advil) 200 mg tablet Discontinued 200 MG PO EVERY 6 HOURS April 14, 2020 1:00am December 10, 2021 10:12am End: 10-10-2020 ibuprofen (ADVIL ORAL) Take by mouth as needed. 10/10/2020 Discontinued 5 ml midazolam 1 mg/ml injection (1 source) Benzodiazepine Start: 06-19-2024 End: 06-19-2024 1-5 mg, INTRAVENOUS, DIRECTED, Starting on Tue06/19/24 at 1030, Until Tue06/19/24 at 1429, DOSING DIRECTED BY PHYSICIAN FOR PROCEDURAL SEDATION ONLY, Intraprocedure tamsulosin hydrochloride 0.4 mg oral capsule (16 sources) alpha-Adrenergic Isadora Start: 09-05-2023 End: 12-04-2023 take 1 capsule by mouth once daily at bedtime tamsulosin (FLOMAX) 0.4 mg Indications: Kidney stone on right side , Flank pain Take 1 capsule by mouth daily at bedtime. Patient should start on September 05, 2023. 30 capsule 2 09/05/2023 10/17/2023 Discontinued Start: 08-04-2023 End: 09-03-2023 take 1 capsule by mouth once daily at bedtime tamsulosin (FLOMAX) 0.4 mg Take 1 capsule by mouth daily at bedtime. 30 capsule 0 08/04/2023 08/17/2023 Discontinued Problems Active Problems Problem Classification Problem Date Documented Da te Episodic/Chronic Abdominal hernia (1 source) Hiatal hernia; Translations: [Diaphragmatic hernia without obstruction or gangrene] 06-26-2024 Episodic Allergic reactions (10 sources) Allergic reaction; Translations: [Allergy, unspecified, initial encounter] Onset: Episodic Cardiac dysrhythmias (20 sources) Paroxysmal atrial fibrillation; Translations: [Paroxysmal atrial fibrillation] Onset: 7 Resolved: 8 10-10-2020 Chronic Chronic obstructive pulmonary disease and bronchiectasis (2 sources) Bronchitis; Translations: [Bronchitis, not specified as acute or chronic] Episodic Coagulation and hemorrhagic disorders (3 sources) Acquired coagulation disorder; Translations: [Coagulation defect, unspecified] 12-25-2022 Chronic Coronary atherosclerosis and other heart disease (20 sources) Coronary arteriosclerosis; Translations: [Atherosclerotic heart disease of [place] coronary artery without angina pectoris] Onset: 7 Resolved: 8 05-13-2021 Chronic Delirium, dementia, and amnestic and other cognitive disorders (7 sources) Postconcussion syndrome; Translations: [Postconcussional syndrome] 07-10-2015 Chronic Disorders of lipid metabolism (20 sources) Hyperlipidemia; Translations: [Hyperlipidemia, unspecified] Onset: 4 04-02-2015 Chronic Esophageal disorders (20 sources) Gastroesophageal reflux disease; Translations: [Gastro-esophageal reflux disease without esophagitis] Onset: 5 11-20-2016 Chronic Essential hypertension (20 sources) Essential (primary) hypertension; Translations: [Benign essential hypertension] Onset: 7 03-09-2019 Chronic Hyperplasia of prostate (20 sources) Benign prostatic hypertrophy with outflow obstruction; Translations: [Benign prostatic hyperplasia with lower urinary tract symptoms] Onset: 4 10-10-2013 Chronic Intracranial injury (7 sources) Concussion with no loss of consciousness; Translations: [Concussion without loss of consciousness, initial encounter] 07-10-2015 Episodic Nausea and vomiting (14 sources) Nausea and vomiting; Translations: [Nausea with vomiting, unspecified] 09-23-2017 Episodic Nonspecific chest pain (7 sources) Chest pain; Translations: [Chest pain, unspecified] 02-26-2021 Episodic Other and unspecified benign neoplasm (2 sources) Blue nevus of skin; Translations: [Other benign neoplasm of skin, unspecified] Episodic Other and unspecified benign neoplasm (1 source) Other benign neoplasm of skin, unspecified; Translations: [Blue nevus] Onset: 5 Episodic Other connective tissue disease (3 sources) Pain of right upper arm; Translations: [Pain in right upper arm] 05-30-2024 Episodic Other connective tissue disease (1 source) Pain in right upper arm; Translations: [Pain of right upper arm] Onset: 5 Episodic Other ear and sense organ disorders (20 sources) Hearing loss; Translations: [Unspecified hearing loss, unspecified ear] Onset: 0 01-12-2010 Chronic Other ear and sense organ disorders (1 source) Unspecified hearing loss, unspecified ear; Translations: [Hearing loss, unspecified hearing loss type, unspecified laterality] Onset: 0 Chronic Other gastrointestinal disorders (4 sources) Dysphagia; Translations: [Dysphagia, unspecified] 05-30-2024 Episodic Other gastrointestinal disorders (2 sources) Esophageal dysphagia; Translations: [Other dysphagia] 06-11-2024 Episodic Other gastrointestinal disorders (1 source) Heartburn; Translations: [Heartburn] 06-19-2024 Episodic Other gastrointestinal disorders (1 source) Heartburn; Translations: [Heartburn] Onset: 5 Episodic Other gastrointestinal disorders (1 source) Other dysphagia; Translations: [Esophageal dysphagia] Onset: 5 Episodic Other gastrointestinal disorders (1 source) Dysphagia, unspecified; Translations: [Dysphagia, unspecified type] Onset: 5 Episodic Other infections; including parasitic (1 source) Personal history of other infectious and parasitic diseases; Translations: [History of COVID-19] Episodic Other injuries and conditions due to external causes (3 sources) Closed injury of head; Translations: [Unspecified injury of head, initial encounter] 12-25-2022 Episodic Other lower respiratory disease (11 sources) Dyspnea; Translations: [Dyspnea, unspecified] 11-22-2020 Episodic Other nervous system disorders (1 source) Pain of skin; Translations: [Other disturbances of skin sensation] Episodic Other nutritional; endocrine; and metabolic disorders (20 sources) Disorder of lipid metabolism; Translations: [Disorder of lipoprotein metabolism, unspecified] Onset: 7 11-17-2016 Chronic Other nutritional; endocrine; and metabolic disorders (7 sources) Obesity; Translations: [Obesity, unspecified] 06-22-2022 Chronic Other nutritional; endocrine; and metabolic disorders (10 sources) Obesity, unspecified; Translations: [Obesity, unspecified] Onset: 7 06-22-2022 Chronic Other nutritional; endocrine; and metabolic disorders (20 sources) Obese class II; Translations: [Obesity, unspecified] Onset: 4 10-03-2023 Chronic Other nutritional; endocrine; and metabolic disorders (1 source) Sequelae of hyperalimentation; Translations: [Sequelae of hyperalimentation] 04-17-2024 Chronic Other nutritional; endocrine; and metabolic disorders (1 source) Body mass index (BMI) 37.0-37.9, adult; Translations: [Class 2 obesity with body mass index (BMI) of 37.0 to 37.9 in adult, unspecified obesity type, unspecified whether serious comorbidity present] Onset: 5 Chronic Other nutritional; endocrine; and metabolic disorders (1 source) Sequelae of hyperalimentation; Translations: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 procedure. The physical status of the patient was re-assessed after the procedure. After obtaining informed consent, the endoscope was passed under direct vision. Throughout the procedure, the patient's blood pressure, pulse, and oxygen saturations were monitored continuously. The Endoscope was introduced through the mouth, and advanced to the second part of duodenum. The upper GI endoscopy was accomplished without difficulty. The patient tolerated the procedure well. Moderate Sedation: The administration of moderate sedation was initiated at 10:05. Moderate (conscious) sedation was personally administered by the endoscopist. The following parameters were monitored: oxygen saturation, heart rate, blood pressure, respiratory rate, EKG, adequacy of pulmonary ventilation, and response to care. Total physician intraservice time was 14 minutes. Findings: The first portion of the duodenum and second portion of the duodenum were normal. Localized mildly erythematous mucosa without bleeding was found in the gastric antrum. Biopsies were taken with a cold forceps for Helicobacter pylori testing. Verification of patient identification for the specimen was done by the nurse. Estimated blood loss was minimal. A medium-sized, small hiatal hernia was present. Biopsies were taken with a cold forceps for histology . Biopsied at GE junction and mid esophagus for EE Verification of patient identification for the specimen was done by the nurse. Estimated blood loss was minimal. Impression: - Normal first portion of the duodenum and second portion of the duodenum. - Erythematous mucosa in the antrum. Biopsied. - Small to Medium-sized, small hiatal hernia. Biopsied at GE junction and mid esophagus for EE Recommendation: - Discharge patient to home (ambulatory). - Resume previous diet. - Continue present medications. - Await pathology results. - - Follow up with Ren Ortiz NP, may be via televisit for discussion of pathology results and (more content not included)... [facility] Study observation (narrative) [facility] HISTORY PHYSICALon HISTORY PHYSICAL HNO ID: [id number] Author: NICHOLE NEWTON MD Service: General Surgery Author Type: Physician Type: H&P Filed: 06/19/2024 09:47 Note Text: HISTORY AND PHYSICAL Curtis Guerrier 1950 REFERRING PHYSICIAN: Jason Cook MD CHIEF COMPLAINT: Consult HPI: The patient is a 74 year old male referred for endoscopy. Curtis notes esophageal dysphagia. He states that this usually occurs with dry meats. He states that this has been going on for years. He last had an EGD in 2018 - no Gamboa's found. He also notes sharp upper abdominal pain, usually lasting a few minutes, usually occurring after eating a large meal. He was taking omeprazole intermittently; at present for the past several weeks, as directed by his physician, he is taking it daily which is helping somewhat. Denies hematemesis. Denies weight loss. PAST MEDICAL HISTORY PAST MEDICAL HISTORY Diagnosis Date Acute deep vein thrombosis (DVT) of right lower extremity (HCC) 09/27/2017 Arthritis BPH (benign prostatic hypertrophy) with urinary obstruction 10/10/2013 Calculus of kidney Coronary artery disease 2016 Stent ?1 Diverticulitis Essential hypertension, benign GERD (gastroesophageal reflux disease) History of coronary artery stent placement 2016 Hypercalciuria 06/26/2012 Hypercholesterolemia Hyperlipidemia LDL goal < 100 04/17/2013 JONAH (obstructive sleep apnea) 06/01/2024 Other and unspecified hyperlipidemia Prostatic hypertrophy 2016 benign with outflow obstruction 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 Reports history of possible TIA PAST SURGICAL HISTORY PAST SURGICAL HISTORY Procedure Laterality Date BACK SURGERY HX CABG (4) VEIN GRAFTS AND ARTERIAL GRAFT(S) 10/2016 COLON SURGERY HX COLONOSCOPY 05/28/2014 Diverticular disease- repeat in 2024 COLONOSCOPY FLX DX W/COLLJ SPEC WHEN PFRMD 02/12/2002 Colonoscopy-repeat in COLONOSCOPY FLX DX W/COLLJ SPEC WHEN PFRMD 04/26/2017 Colonoscopy ESOPHAGOGASTRODUODENOSCOPY TRANSORAL DIAGNOSTIC 04/26/2017 EGD EYE SURGERY HX FISSURECTOMY INCL SPHINCTEROTOMY WHEN PERFORMED HEART SURGERY HX HERNIA REPAIR HX LAPS COLECTOMY PRTL W/COLOPXTSTMY LW ANAST 04/14/2016 with mobilization of splenic flexure for diverticulitis PAST SURGICAL HISTORY OF 1982 lower back herniated disc PAST SURGICAL HISTORY OF 2005 low back surgery PAST SURGICAL HISTORY OF 04/04/2015 cardiac stent insertion PAST SURGICAL HISTORY OF 03/2016 colon resection PAST SURGICAL HISTORY OF 03/2024 Injection into larynx at [place] [facility] REVISE MEDIAN N/CARPAL TUNNEL SURG Bilateral 06/12/2020 Bilateral carpal tunnel release RPR 1ST INGUN HRNA AGE 5 YRS/> REDUCIBLE Hernia repair, inguinal w/ mesh - right TONSILLECTOMY PRIMARY/SECONDARY Tonsillectomy CURRENT MEDICATIONS Current Outpatient Medications Medication Sig losartan (COZAAR) 100 mg tablet Take 1 tablet by mouth once daily. rosuvastatin (CRESTOR) 40 mg tablet Take 1 tablet by mouth daily at bedtime. omeprazole (PRILOSEC) 20 mg capsule Take 1 capsule by mouth once daily. metoprolol tartrate, short acting, (LOPRESSOR) 50 mg tablet Take 1 tablet by mouth two times a day. hydroCHLOROthiazide 25 mg tablet Take 1 tablet by mouth once daily. Psyllium Seed-Sucrose (METAMUCIL, SUGAR,) Take by mouth once daily. sildenafil (VIAGRA) 50 mg tablet Take 1 tablet by mouth as needed. albuterol HFA (PROVENTIL HFA, VENTOLIN HFA) 90 mcg/actuation inhaler Inhale 2 Puffs as instructed every 6 hours as needed for wheezing/shortness of breath. apixaban (ELIQUIS) 5 mg tab(s) Take 1 tablet by mouth twice daily. acetaminophen (TYLENOL ORAL) Take by mouth as needed. aspirin 81 mg chewable tablet Take 1 tablet by mouth once daily. therapeutic multivitamin (THERA VITAMIN) tablet Take 1 tablet by mouth daily with breakfast. CPAP Initiate Auto PAP @ 5-20 cm of water with humidification. Mask (per patient preference) optional chin strap (if indicated) , filters, tubing, humidifier and lifetime supplies. (Patient not taking: Reported on 06/11/2024) No current facility-administered medications for this visit. ALLERGIES: Iv Contrast [Iodine], Lipitor [Atorvastatin Calcium], Lovastatin, and Hcqzpke-Yyc-Sah Reductase Inhibitors PERSONAL HISTORY: SOCIAL HISTORY Social History Tobacco Use Smoking status: Former Current packs/day: 0.00 Types: Cigarettes Quit date: 06/18/1987 Years since quittin.0 Smokeless tobacco: Never Tobacco comments: quit smoking 1987 Vaping Use Vaping status: Never Used Substance Use Topics Alcohol use: Yes Alcohol/week: 7.0 standard drinks of alcohol Types: 7 Glasses of wine per week Drug use: Never FAMILY HISTORY FAMILY HISTORY Problem Relation Age of O (more content not included)... Normal [facility] Pathology biopsy report Tutu (Tiss)on 06-19-2024 ADDENDUM 1: Normal [facility] Comment on above: Order Comment: Speci men Type: TISSUE SPECIMENOrdering Facility: [facility] Address: [address] [place] [address] Result Comment: This addendum is issued to report the results of a Helicobacter pylori immunohistochemical stain that was performed on the gastric biopsy ([id number], block A1) due to the presence of mild chronic and patchy active gastritis. The Helicobacter pylori immunohistochemical stain is negative for Helicobacter pylori organisms. The final diagnosis remains unchanged. Addendum electronically signed by Greta Davidson MD on 06/21/2024 at 1502 EDT Performed By: #### 6 6121-5 ####[facility] [id number] [place] [address] [place] AP DISCLAIMER Normal [facility] Comment on above: Order Comment: Speci men Type: TISSUE SPECIMENOrdering Facility: [facility] Address: [address] [place] [address] Result Comment: Hailey Roberts Test (LDT) Disclaimer: Performance characteristics of immunohistochemical, immunofluorescent, and chromogenic in-situ hybridization tests have been determined by the performing laboratory within [facility] Belinda Ayesha [facility] ([facility], [facility], [facility], [facility], [facility], [facility], or [facility]) in a manner consistent with CLIA requirements. One or more of these tests may not have been cleared or approved by the FDA. [facility] is regulated under CLIA as qualified to perform high-complexity testing. These tests are used for clinical purposes. These should not be regarded as investigational or for research. Positive and negative controls stain appropriately. Performed By: #### 6 6121-5 ####[facility] [id number] [address] [address] [place] CASE REPORT Normal [facility] Comment on above: Order Comment: Speci men Type: TISSUE SPECIMENOrdering Facility: [facility] Address: [address] [place] [address] Result Comment: Surg [facility] Pathology Report Case: [id number] Authorizing Provider: Nichole Newton MD Collected: 06/19/2024 10:14 AM Ordering Location: Ambulatory Surgery Received: 06/19/2024 02:52 PM Pathologist: Greta Davidson MD Specimens: A) - Stomach, Antrum, Biopsy, antral bx for h/h B) - Esophagogastric Junction, Biopsy, GE junction bx C) - Esophagus, Mid, Biopsy Performed By: #### 6 6121-5 ####[facility] [id number] [address] [place] [address] [place] DIAGNOSIS COMMENT A. Given the presenc e of mild chronic and patchy active gastritis, a Helicobacter pylori immunohistochemical stain has been ordered, the results of which will be issued in an addendum. Normal [facility] Comment on above: Order Comment: Speci men Type: TISSUE SPECIMENOrdering Facility: [facility] Address: [address] [place] [address] Performed By: #### 6 6121-5 ####[facility] [id number] [address] [address] [place] [facility] FINAL DIAGNOSIS Normal [facility] Comment on above: Order Comment: Speci men Type: TISSUE SPECIMENOrdering Facility: [facility] Address: [address] [place] [address] Result Comment: A. S tomach, antrum, biopsy: - Mild chronic and patchy active gastritis with reactive epithelial changes, see comment. - Negative for intestinal metaplasia. B. Gastroesophageal junction, biopsy: - Squamous esophageal mucosa and mildly inflamed gastric cardiofundic-type mucosa; negative for intestinal metaplasia. C. Esophagus, mid, biopsy: - Squamous esophageal mucosa with no significant pathologic change. at 1049 EDT Performed By: #### 6 6121-5 ####[facility] [id number] [place] [address] [place] FINAL PERFORMING LAB Normal [facility] Comment on above: Order Comment: Speci men Type: TISSUE SPECIMENOrdering Facility: [facility] Address: [address] [place] [address] Result Comment: Diag nostic interpretation performed at: [facility], [address] [place] [address] CLIA# [id number] Fuel Management Handler: Andrea Osuna MD Performed By: #### 6 6121-5 ####[facility] [id number] [address] STATES OF [facility] GROSS DESCRIPTION Normal [facility] Comment on above: Order Comment: Speci men Type: TISSUE SPECIMENOrdering Facility: [facility] Address: [address] [place] [address] Result Comment: A. S tomach, Antrum, Biopsy Received in formalin is one piece of reed-brown, soft tissue measuring 0.5 x 0.3 x 0.3 cm. Totally submitted in one cassette. B. Esophagogastric Junction, Biopsy Received in formalin is one piece of reed-brown, soft tissue measuring 0.5 x 0.4 x 0.3 cm. Totally submitted in one cassette. C. Esophagus, Mid, Biopsy Received in formalin are multiple pieces of reed, soft tissue aggregating to 0.9 x 0.3 x 0.2 cm. Totally submitted in one cassette. DL June 19, 2024 8:23 PM Gross examination performed at [facility], [address] [place] [address] [place] [address] Performed By: #### 6 6121-5 ####[facility] [id number] [facility] [place] [id number] [place] Upper GI endoscopyon 06-19- 025 [facility] Patient Name: Curtis Guerrier Procedure Date: 06/19/2024 9:54 AM Date of : 1950 Admit Type: Outpatient Age: 74 Gender: Male Note Status: Finalized Procedure: Upper GI endoscopy Indications: Dysphagia Providers: Nichole Newton MD Patient Profile: Refer to note in patient chart for documentation of history and physical. Referring Physician: Nichole Newton MD (Referring MD) Medicines: Midazolam 5 mg IV, Fentanyl 50 micrograms IV, Diphenhydramine 50 mg IV, Benzocaine spray Complications: No immediate complications. Requesting Provider: Procedure: Pre-Anesthesia Assessment: - Prior to the procedure, a History and Physical was performed, and patient medications and allergies were reviewed. The patient is competent. The risks and benefits of the procedure and the sedation options and risks were discussed with the patient. All questions were answered and informed consent was obtained. Patient identification and proposed procedure were verified by the physician. Mental Status Examination: normal. Airway Examination: normal oropharyngeal airway and neck mobility. Respiratory Examination: clear to auscultation. CV Examination: normal. ASA Grade Assessment: III - A patient with severe systemic disease. After reviewing the risks and benefits, the patient was deemed in satisfactory condition to undergo the procedure. The anesthesia plan was to use moderate sedation / analgesia (conscious sedation). Immediately prior to administration of medications, the patient was re-assessed for adequacy to receive sedatives. The heart rate, respiratory rate, oxygen saturations, blood pressure, adequacy of pulmonary ventilation, and response to care were monitored throughout the procedure. The physical status of the patient was re-assessed after the procedure. After obtaining informed consent, the endoscope was passed under direct vision. Throughout the procedure, the patient's blood pressure, pulse, and oxygen saturations were monitored continuously. The Endoscope was introduced through the mouth, and advanced to the second part of duodenum. The upper GI endoscopy was accomplished without difficulty. The patient tolerated the procedure well. Moderate Sedation: The administration of moderate sedation was initiated at 10:05. Moderate (conscious) sedation was personally administered by the endoscopist. The following parameters were monitored: oxygen saturation, heart rate, blood pressure, respiratory rate, EKG, adequacy of pulmonary ventilation, and response to care. Total physician intraservice time was 14 minutes. Findings: The first portion of the duodenum and second portion of the duodenum were normal. Localized mildly erythematous mucosa without bleeding was found in the gastric antrum. Biopsies were taken with a cold forceps for Helicobacter pylori testing. Verification of patient identification for the specimen was done by the nurse. Estimated blood loss was minimal. A medium-sized, small hiatal hernia was present. Biopsies were taken with a cold forceps for histology . Biopsied at GE junction and mid esophagus for EE Verification of patient identification for the specimen was done by the nurse. Estimated blood loss was minimal. Impression: - Normal first portion of the duodenum and second portion of the duodenum. - Erythematous mucosa in the antrum. Biopsied. - Small to Medium-sized, small hiatal hernia. Biopsied at GE junction and mid esophagus for EE Recommendation: - Discharge patient to home (ambulatory). - Resume previous diet. - Continue present medications. - Await pathology results. - - Follow up with Ren Ortiz NP, may be via televisit for discussion of pathology results and determination of timing of future endoscopies Procedure Code(s): --- Professional --- 13497, Esophagogastroduodenoscopy, flexible, transoral; with biopsy, single or multiple 88398, 59, Moderate sedation services provided by the same physician or other qualified health health careers instructor performing the diagnostic or therapeutic service that the sedation supports, requiring the presence of an independent trained observer to assist in the monitoring of the patient's level of consciousness and physiological status; initial 15 minutes of intraservice time, patient age 5 years or older Diagnosis Code(s): --- Professional --- R13.10, Dysphagia, unspecified K44.9, Diaphragmatic hernia without obstruction or gangrene K31.89, Other diseases of stomach and duodenum CPT copyright 2020 [employer]. All rights reserved. The codes documented in this report are preliminary and upon binding bench worker review may be revised to meet current compliance requirements. Attending Participation: I personally performed the entire procedure. Scope In: 10:12:06 AM Scope Out: 10:19:[address] Nichole Shah (more content not included)... Normal [facility] CNOVon 06-11-2024 CNOV Office Visit ([facility] ) FAREEDCURTIS Moctezuma ([id number]) 1950 Date Time Provider Department 06/11/24 8:45 AM NICHOLE NEWTON During your visit today, we recorded the following information about you: Temperature Pulse Respiration Blood pressure 97.9 degrees 64/minute 14/minute 128/78 Weight Height 103 kg 1.633 m Nichole Newton MD 06/13/2024 7:47 AM Signed HISTORY AND PHYSICAL Curtis Guerrier 1950 REFERRING PHYSICIAN: Jason Cook MD CHIEF COMPLAINT: Consult HPI: The patient is a 74 year old male referred for endoscopy. Curtis notes esophageal dysphagia. He states that this usually occurs with dry meats. He states that this has been going on for years. He last had an EGD in 2018 - no Gamboa's found. He also notes sharp upper abdominal pain, usually lasting a few minutes, usually occurring after eating a large meal. He was taking omeprazole intermittently; at present for the past several weeks, as directed by his physician, he is taking it daily which is helping somewhat. Denies hematemesis. Denies weight loss. PAST MEDICAL HISTORY Diagnosis Date Acute deep vein thrombosis (DVT) of right lower extremity (HCC) 09/27/2017 Arthritis BPH (benign prostatic hypertrophy) with urinary obstruction 10/10/2013 Calculus of kidney Coronary artery disease 2016 Stent ?1 Diverticulitis Essential hypertension, benign GERD (gastroesophageal reflux disease) History of coronary artery stent placement 2016 Hypercalciuria 06/26/2012 Hypercholesterolemia Hyperlipidemia LDL goal < 100 04/17/2013 JONAH (obstructive sleep apnea) 06/01/2024 Other and unspecified hyperlipidemia Prostatic hypertrophy 2016 benign with outflow obstruction 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 Reports history of possible TIA PAST SURGICAL HISTORY Procedure Laterality Date BACK SURGERY HX CABG (4) VEIN GRAFTS AND ARTERIAL GRAFT(S) 10/2016 COLON SURGERY HX COLONOSCOPY 05/28/2014 Diverticular disease- repeat in 2024 COLONOSCOPY FLX DX W/COLLJ SPEC WHEN PFRMD 02/12/2002 Colonoscopy-repeat in COLONOSCOPY FLX DX W/COLLJ SPEC WHEN PFRMD 04/26/2017 Colonoscopy ESOPHAGOGASTRODUODENOSCOPY TRANSORAL DIAGNOSTIC 04/26/2017 EGD EYE SURGERY HX FISSURECTOMY INCL SPHINCTEROTOMY WHEN PERFORMED HEART SURGERY HX HERNIA REPAIR HX LAPS COLECTOMY PRTL W/COLOPXTSTMY LW ANAST 04/14/2016 with mobilization of splenic flexure for diverticulitis PAST SURGICAL HISTORY OF 1982 lower back herniated disc PAST SURGICAL HISTORY OF 2005 low back surgery PAST SURGICAL HISTORY OF 04/04/2015 cardiac stent insertion PAST SURGICAL HISTORY OF 03/2016 colon resection PAST SURGICAL HISTORY OF 03/2024 Injection into larynx at [place] [facility] REVISE MEDIAN N/CARPAL TUNNEL SURG Bilateral 06/12/2020 Bilateral carpal tunnel release RPR 1ST INGUN HRNA AGE 5 YRS/> REDUCIBLE Hernia repair, inguinal w/ mesh - right TONSILLECTOMY PRIMARY/SECONDARY Tonsillectomy Current Outpatient Medications Medication Sig losartan (COZAAR) 100 mg tablet Take 1 tablet by mouth once daily. rosuvastatin (CRESTOR) 40 mg tablet Take 1 tablet by mouth daily at bedtime. omeprazole (PRILOSEC) 20 mg capsule Take 1 capsule by mouth once daily. metoprolol tartrate, short acting, (LOPRESSOR) 50 mg tablet Take 1 tablet by mouth two times a day. hydroCHLOROthiazide 25 mg tablet Take 1 tablet by mouth once daily. Psyllium Seed-Sucrose (METAMUCIL, SUGAR,) Take by mouth once daily. sildenafil (VIAGRA) 50 mg tablet Take 1 tablet by mouth as needed. albuterol HFA (PROVENTIL HFA, VENTOLIN HFA) 90 mcg/actuation inhaler Inhale 2 Puffs as instructed every 6 hours as needed for wheezing/shortness of breath. apixaban (ELIQUIS) 5 mg tab(s) Take 1 tablet by mouth twice daily. acetaminophen (TYLENOL ORAL) Take by mouth as needed. aspirin 81 mg chewable tablet Take 1 tablet by mouth once daily. therapeutic multivitamin (THERA VITAMIN) tablet Take 1 tablet by mouth daily with breakfast. CPAP Initiate Auto PAP @ 5-20 cm of water with humidification. Mask (per patient preference) optional chin strap (if indicated) , filters, tubing, humidifier and lifetime supplies. (Patient not taking: Reported on 06/11/2024) No current facility-administered medications for this visit. ALLERGIES: Iv Contrast [Iodine], Lipitor [Atorvastatin Calcium], Lovastatin, and Nmbgjqf-Eia-Fao Reductase Inhibitors PERSONAL HISTORY: Social History Tobacco Use Smoking status: Former Current packs/day: 0.00 Types: Cigarettes Quit date: 06/18/1987 Years since quittin.0 Smokeless tobacco: Never Tobacco comments: quit smoking 1987 Vaping Us (more content not included)... Normal [facility]OVon 05-30-2024 [facility] CURTIS GUERRIER ([id number]) 1950 M Date Time Provider Department 05/30/24 8:40 AM [facility] During your visit today, we recorded the following information about you: Pulse Blood pressure Weight Height 65/minute 136/70 103.9 kg 1.676 m Jason Cook MD 05/30/2024 9:57 AM Addendum Patient presents with: 6 Month Exam HPI: Patient presents today for office visit for routine 6 month follow up. Having some pain in his right upper inner arm for 6+ months. No injury. Some tingling in fingers but is minimal. Hx of carpal tunnel B/L. Had similar pain back in 2020. Previous carpal tunnel surgery 06/12/[address] Alvarado. He told him it might come back. States this pain in his arm went away post surgery. Pain is deep in the arm. Moving the shoulder or the neck does not really affect it. Worse at night. GERD: For years has been taking Omeprazole 20 mg 3 days a week and symptoms have been controlled for the most part. About 6 weeks ago started with some upper abdominal pain. Refers to the pain feeling like indigestion and heartburn. Was having some increased gas. Points to upper abdomen and lower part of sternum. Refers to pain just coming on and going away after about 20 minutes. No triggers. He states pain level was about a 7-8/10 when it happens. Started taking the omeprazole daily. Is getting relief from this pain since started taking med daily. Is he estimates 80 % better. Tums seemed to help as well. No nausea or vomiting. No diarrhea. No bloody or black stool. Had non bleeding esophagitis with egd in 2018. He does note that sometimes certain foods like chicken or turkey can stick. No nsaids. Some etoh. HTN: Has been monitoring BP Home numbers have been actually very well. Denies headaches and dizziness. Denies chest pain and shortness of breath. No palpitations or syncope No edema Follows with Cardiology. Sleep study just completed. Waiting for results. HLD: No myalgias. Glucose was 116 but not fasting. Testosterone was low normal. Given heart issues, we may not want to treat the testosterone. Latest Ref [facility] 04/27/2024 WBC 3.70 - 11.00 k/uL 5.81 RBC 4.20 - 6.00 m/uL 4.74 Hemoglobin 13.0 - 17.0 g/dL 15.0 Hematocrit 39.0 - 51.0 % 44.9 MCV 80.0 - 100.0 fL 94.7 MCH 26.0 - 34.0 pg 31.6 MCHC 30.5 - 36.0 g/dL 33.4 RDW-CV 11.5 - 15.0 % 12.7 Platelet Count 150 - 400 k/uL 215 MPV 9.0 - 12.7 fL 10.2 Neut% % 52.9 Abs Neut (ANC) 1.45 - 7.50 k/uL 3.08 Lymph% % 30.3 Abs Lymph 1.00 - 4.00 k/uL 1.76 [place]% % 11.7 Abs [place] <0.87 k/uL 0.68 Eosin% % 4.0 Abs Eosin <0.46 k/uL 0.23 Baso% % 0.9 Abs Baso <0.11 k/uL 0.05 Immature Gran % % 0.2 IMMATURE GRANS (ABS) <0.10 k/uL <0.03 NRBC /100 WBC 0.0 Absolute nRBC <0.01 k/uL <0.01 DTYPE Auto Glucose 74 - 99 mg/dL 116 (H) BUN 9 - 24 mg/dL 20 Creatinine 0.73 - 1.22 mg/dL 0.86 Sodium 136 - 144 mmol/L 137 Potassium 3.7 - 5.1 mmol/L 4.4 Chloride 98 - 107 mmol/L 100 CO2 22 - 30 mmol/L 28 Anion Gap 8 - 15 mmol/L 9 Calcium 8.5 - 10.2 mg/dL 9.7 eGFR >=60 mL/min/1.73m? 90 Hemoglobin A1C 4.3 - 5.6 % 5.5 Estimated Average Glucose mg/dL 111 TSH 0.270 - 4.200 mIU/L 2.970 Magnesium 1.7 - 2.3 mg/dL 2.0 Vitamin B12 232 - 1,245 pg/mL 627 Vitamin D 25 Hydroxy 31.0 - 80.0 ng/mL 50.3 Testosterone 193 - 824 ng/dL 213 Legend: (H) High MEDICATIONS: Current Outpatient Medications Medication Sig rosuvastatin (CRESTOR) 40 mg tablet Take 1 tablet by mouth daily at bedtime. omeprazole (PRILOSEC) 20 mg capsule Take 1 capsule by mouth once daily. metoprolol tartrate, short acting, (LOPRESSOR) 50 mg tablet Take 1 tablet by mouth two times a day. hydroCHLOROthiazide 25 mg tablet Take 1 tablet by mouth once daily. Psyllium Seed-Sucrose (METAMUCIL, SUGAR,) Take by mouth once daily. losartan (COZAAR) 100 mg tablet Take 1 tablet by mouth once daily. sildenafil (VIAGRA) 50 mg tablet Take 1 tablet by mouth as needed. albuterol HFA (PROVENTIL HFA, VENTOLIN HFA) 90 mcg/actuation inhaler Inhale 2 Puffs as instructed every 6 hours as needed for wheezing/shortness of breath. apixaban (ELIQUIS) 5 mg tab(s) Take 1 tablet by mouth twice daily. acetaminophen (TYLENOL ORAL) Take by mouth as needed. aspirin 81 mg chewable tablet Take 1 tablet by mouth once daily. therapeutic multivitamin (THERA VITAMIN) tablet Take 1 tablet by mouth daily with breakfast. No current facility-administered medications for this visit. ALLERGIES: ALLERGIES Allergen Reactions Iv Contrast [Iodine] Angioedema IV contrast 06/01/2019 Lipitor [Atorvastat* myalgia Lovastatin myalgia Eabugje-Jae-Eff Red* Other: See Comments, Myalgia sore joints and muscles PAST MEDICAL HISTORY Diagnosis Date Acute deep vein thrombosis (DVT) of right lower extremity (HCC) 09/27/2017 Arthritis BPH (benign prostatic h (more content not included)... Normal [facility] HbA1c (Bld)on 05-30-2024 Average glucose Estimated from glycated hemoglobin (Bld) [Mass/Vol] 114 mg/dL Normal [facility] Comment on above: Order Comment: Speci men Type: BLOOD SPECIMENOrdering Facility: [facility] Address: [address] [place] [address] Result Comment: eAG: (Estimated average glucose) is a calculated value from HgbA1c and is client care representative of the average blood glucose level in the last 2-3 month period. Performed By: #### 5 5454-3 ####[facility] [id number] [address] STATES OF [facility] HbA1c (Bld) [Mass fraction] 5.6 % Normal 4.3-5.6 [facility] Comment on above: Order Comment: Speci gigi Type: BLOOD SPECIMENOrdering Facility: [facility] Address: [address] [place] [address] Result Comment: Amer [place] Diabetes Association guidelines indicate that patients with HgbA1c in the range 5.7-6.4% are at increased risk for development of diabetes, and intervention by lifestyle modification may be beneficial. HgbA1c greater or equal to 6.5% is considered diagnostic of diabetes. Performed By: #### 5 5454-3 ####[facility] LABCL[facility] [id number] [address] [place] XR SHLDR >/=3V AP/YUAN AP/OTH R RTon 05-30-2024 XR SHLDR >/=3V AP/YUAN AP/OTHR RT * * *Final Report* * * DATE OF EXAM: May 30 2024 9:34AM WOX [id number] - XR SHLDR >/=3V AP/YUAN AP/OTHR RT / PROCEDURE REASON: Pain of right upper arm * * * * Physician Interpretation * * * * EXAMINATION: XR SHLDR >/=3V AP/YUAN AP/OTHR RT CLINICAL HISTORY: Right shoulder pain Technique: XR SHLDR >/=3V AP/YUAN AP/OTHR RT -- RIGHT with 3 views on 3 images Comparison: X-ray right shoulder 04/07/2020 RESULT: No acute fracture or dislocation. Mild glenohumeral joint space narrowing. Acromiohumeral joint space narrowing with marginal osteophytes. IMPRESSION: No acute osseous abnormality. Degenerative disease of the right shoulder. 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 Service Operator: BETH Transcribe Date/Time: Jun 01 2024 1:22P Dictated by : ALVINO SALAZAR MD This examination was interpreted and the report reviewed and electronically signed by: ALVINO SALAZAR MD on Jun 01 2024 1:38PM EST [id number] Normal [facility] POLYSOMNOGRAM (PSG)/HOME SLE EP APNEA TEST (HSAT)on 05-25-2024 POLYSOMNOGRAM (PSG)/HOME SLEEP APNEA TEST (HSAT) [facility] at [address], [address] [address] ; Home Sleep Apnea Test (HSAT) Study Report Name: CURTIS GUERRIER Date of Study: 05/25/2024 [facility]#: [id number] Age: 74 (: 1950) ESS: 11/18 Neck Circ. (cm): 43.0 Height (cm): 167.6 Weight (kg): 101.0 BMI: 36.0 Referring Provider: JASON COOK Mailcode: [id number] Sleep history: The patient is a 74 year old male with a history of daytime sleepiness and fatigue. The patient is here for assessment of obstructive sleep apnea. The patient endorses being a habitual side sleeper. Pertinent medical history: Atrial fibrillation, CAD, GERD, Hyperlipidemia, Hypertension, Obesity Medications: Tylenol, Proventil HFA, Eliquis, Aspirin, Hydrochlorothiazide, Cozaar, Lopressor, Prilosec, Deltasone, Crestor, Viagra Sleep procedure: PSG unattended Type III, minimum of 4 parameters (01287) Procedure: This study was performed using a Type III ambulatory PSG device and was unattended. The patient was instructed on proper use of the device by a registered optometric technologist. The monitored parameters included heart rate, oxygen saturation, continuous airflow with thermistor and nasal pressure transducer, snoring via nasal pressure transducer, chest and abdominal effort, and body position. EDITH definition: Respiratory event index (EDITH), calculated as respiratory events x 60 / TRT (total recording time in minutes). Note: the apnea hypopnea index has been replaced by the respiratory event index for home sleep apnea test. Since the home sleep apnea test does not measure sleep, the EDITH is most accurate index of respiratory events. The EDITH is a surrogate of the AHI per the AASM Manual for Scoring of Sleep and Associated Events version 3. Apnea definition: The peak signal excursions drop by >90% of pre-event baseline using an oronasal thermal sensor (diagnostic study), PAP device flow (titration study) or an alternative apnea sensor (diagnostic study). The duration of the >90% drop in signal excursion is >=10 seconds. Hypopnea definition: The peak signal excursions drop by >= 30% of pre-event baseline using nasal pressure (diagnostic study), PAP device flow (titration study) or an alternative hypopnea sensor (diagnostic study). The duration of the >= 30% drop in signal excursion is >=10 seconds. There is a greater than or equal to 4% oxygen desaturation from pre-event baseline. RESPIRATORY DATA: The study started at 19:16:34 and ended at 03:00:04 and the total recording time was 463 minutes. By convention, sleep is assumed for the whole recording. Snoring was noted. There was a total of 44 respiratory events. Of these events, the total number of apneas was 5 (0 obstructive, 0 mixed, and 5 central (11.4%)) and 39 hypopneas. The central apnea index (LILI) was 0.6. The respiratory event index (EDITH) was 5.7 events per hour of study time. The mean oxygen saturation during the study was 93.0%, with a minimum oxygen saturation of 87.0%. The patient spent 1.6 minutes at oxygen saturation measured less than 90% (0.4% of recording time) and 0.3 minutes at oxygen saturation measured at or less than 88% (0.1% of recording time). Time EDITH/AHI Supine 31.0 min 5.8 Off-Supine 432.5 min 5.7 Total 463.5 min 5.7 ECG DATA: The average heart rate was 58 bpm with a range of 52 bpm to 78 bpm. ICSD DIAGNOSIS: Obstructive Sleep Apnea Syndrome [G47.33] IMPRESSION/RECOMMENDATIONS: 1. This study confirms a diagnosis of at least mild obstructive sleep apnea. 2. The results of this study may represent an underestimation of the degree of obstructive sleep apnea, especially hypopneas, because of the known limitations of HSAT, such as inability to record arousals because EEG is not recorded. 3. Treatment of mild sleep apnea can include weight loss, positional therapy, treatment of allergies, oral appliance therapy or ENT evaluation of any airway abnormalities. PAP therapy may be considered in patients with documented symptoms of daytime sleepiness, impaired cognition, mood disorder, insomnia, or documented hypertension, ischemic heart disease, or history of stroke. INTERPRETING PHYSICIAN: Gayle Fang MD,[facility] I attest that I have performed epoch by epoch review of the entire raw data and find this study to be technically adequate. Report Digitally Signed By: GAYLE FANG (06/01/2024 12:47:31 AM) Normal [facility] ECHOon 04-30-2024 Echocardiography Echocardiography Rep ort: Transthoracic Echo [facility] Date of service: 04/30/2024 8:44:27 AM SECTION CHIEF Ordering physician: JOSH LYNCH Indication: CAD Technologist: Sandee Freitas [facility] Interpreting physician: Yasmine Oquendo MD PATIENT: Name: MR. CURTIS GUERRIER : 1950 Age: 74 years Gender: M History of hypertension and dyslipidemia. Previous cardiovascular interventions: CABG (2017) Primary rhythm: sinus. Height: 167.60 cm BSA: 2.21 m Weight: 105.05 kg BMI: 37.4 kg/m Heart rate 58 bpm Blood pressure 159/72 mmHg Technically difficult exam due to body habitus. Color Doppler was utilized to interrogate the cardiac valves assessed and spectral Doppler was utilized to determine the flow velocities and pressure gradients reported in this exam. Myocardial strain analysis was performed in this exam to aid in the assessment of cardiac function. MEASUREMENTS: Value Indexed Normal Max aortic dimension 3.5 cm Ao < 3.8 Left atrial volume 56 ml (4ch A-L) 25 ml/m Silvia <= 34 LV ID (diastole) 4.6 cm (2D) 2.08 cm/m LV ID (systole) 2.6 cm (2D) 1.18 cm/m IVS, leaflet tips 1.0 cm (2D) Posterior wall thickness 1.1 cm (2D) Left ventricular mass 170 g (2D) 77 g/m Global peak long strain -18.4 % LV stroke volume 64 ml (2D biplane) LV end diastolic volume 107 ml (2D biplane) 48.2 ml/m 34<=EDVi<75 LV end systolic volume 43 ml (2D biplane) 19.5 ml/m Ejection Fraction 60 % (2D biplane) EF > 52 FINDINGS: LEFT VENTRICLE The left ventricle is normal in size. Left ventricular systolic function is normal. Global LV myocardial strain is normal. Normal left ventricular diastolic function. Mitral annular lateral E/e': 5.9. Mitral annular septal E/e': 8.2. Wall Motion: All scored segments are normal. RIGHT VENTRICLE The right ventricle is normal in size. Right ventricular systolic function is normal. RV systolic tissue Doppler velocity is 12.0 cm/s. Tricuspid annular displacement is 1.9 cm. Estimated right ventricular systolic pressure is 27 mmHg consistent with normal pulmonary artery pressures. Estimated right atrial pressure is 3 mmHg based on IVC assessment. LEFT ATRIUM The left atrial cavity is normal in size. Pulmonary Veins: The pulmonary venous pattern showed normal systolic flow. RIGHT ATRIUM The right atrial cavity is normal in size. Inferior Vena Cava: The inferior vena cava appears normal measuring 1.6 cm. The vessel decreases greater than 50 percent with inspiration. MITRAL VALVE The mitral valve leaflets are structurally normal. There is trace mitral valve regurgitation. The pressure half time is 73 msec. The peak mitral E/A ratio is 0.80. The average mitral E/e' ratio is 7.0. The mitral flow deceleration time is 251 msec. TRICUSPID VALVE The tricuspid valve leaflets are structurally normal. There is mild (1+) tricuspid valve regurgitation. AORTIC VALVE The aortic valve cusps are structurally normal. There is no aortic valve stenosis. There is no aortic valve regurgitation. Tricuspid aortic valve. The peak gradient is 9 mmHg (peak velocity = 147.9 cm/s). PULMONIC VALVE The pulmonic valve cusps are structurally normal. There is no pulmonic stenosis. There is trace pulmonic valve regurgitation. AORTA The visualized aorta is normal in size. Measurements - Mid ascending aorta 3.5 cm. INTERVENTRICULAR SEPTUM There is abnormal motion of the interventricular septum secondary to prior cardiac surgery. PERICARDIUM There is no pericardial effusion. There is an epicardial fat pad. CONCLUSIONS: - Technically difficult exam due to body habitus. - Exam indication: CAD - The left ventricle is normal in size. Left ventricular systolic function is normal. EF = 60 5% (2D biplane). Normal left ventricular diastolic function. - The right ventricle is normal in size. Right ventricular systolic function is normal. - Mild (1+) tricuspid valve regurgitation. - Exam was compared with the prior echocardiographic exam performed on 11/09/2016. There is no significant change. * * * Final * * * [employer] : [id number] Normal [facility] 25(OH)D3 [facility] 25-hydroxyvitamin D3 [Mass/Vol] 50.3 ng/mL Normal 31.0-80.0 [facility] Comment on above: Order Comment: Speci men Type: BLOOD SPECIMENOrdering Facility: [facility] Address: [address] [place] [address] Result Comment: Clas sification of 25 OH Vitamin D status: Deficiency/Insufficiency: < or = 30 ng/ml. Sufficiency/Optimal Levels: 31-80 ng/mL Toxicity: > 100 ng/mL. Test performed by chemiluminescent immunoassay. Performed By: #### 1 989-3 ####[facility] LABCLIA [id number] [facility] CENTERRojelio [place] LOMADESK [id number] [place] [id number] [place] Basic metabolic 2000 panelon 04-27-2024 Anion gap [Moles/Vol] 9 mmol/L Normal 8-15 [facility] Comment on above: Order Comment: Speci men Type: BLOOD SPECIMENOrdering Facility: [facility] Address: [address] [place] [address] Performed By: #### 2 432-2, ####[facility]ASTWNCLIA [id number] [place] [address] [place] Calcium [Mass/Vol] 9.7 mg/dL Normal 8.5-10.2 [facility] Comment on above: Order Comment: Speci men Type: BLOOD SPECIMENOrdering Facility: [facility] Address: [address] [place] [address] Performed By: #### 2 43203-29, ####[facility] COASTWPALIA [id number] [place] [address] [place] Chloride [Moles/Vol] 100 mmol/L Normal 98-107 [facility] Comment on above: Order Comment: Speci men Type: BLOOD SPECIMENOrdering Facility: [facility] Address: [address] [place] [address] Performed By: #### 2 2, ####[facility] MILLTOWNCLIA [id number] [place] [id number] [place] CO2 [Moles/Vol] 28 mmol/L Normal 22-30 [facility] Comment on above: Order Comment: Speci men Type: BLOOD SPECIMENOrdering Facility: [facility] Address: [address] [place] [address] Performed By: #### 2 2, ####[facility] MARYNCLIA [id number] [place] [address] [place] Creatinine [Mass/Vol] 0.86 mg/dL Normal 0.73-1.22 [facility] Comment on above: Order Comment: Juan Antonio yu Type: BLOOD SPECIMENOrdering Facility: [facility] Address: [address] [place] [address] Performed By: #### 2 4321-2, ####[facility] BEACHA [id number] [place] [address] [place] Creatinine and Glomerular filtration rate.predicted panel (S/P/Bld) 90 mL/min/1.73m??? Normal >=60 [facility] Comment on above: Order Comment: Juan Antonio yu Type: BLOOD SPECIMENOrdering Facility: [facility] Address: [address] [place] [address] Result Comment: Zully mated Glomerular Filtration Rate (eGFR) is calculated using the 2020 CKD-EPI creatinine equation. This equation utilizes serum creatinine, sex, and age as parameters. The creatinine assay has traceable calibration to isotope dilution-mass spectrometry. Refer to KDIGO guidelines for clinical interpretation. In patients with unstable renal function, e.g. those with acute kidney injury, the eGFR may not accurately reflect actual GFR. Performed By: #### 2 4321-2, ####[facility] CENTERLIA [id number] [place] [id number] [place] Glucose [Mass/Vol] 116 mg/dL High 74-99 [facility] Comment on above: Order Comment: Speci men Type: BLOOD SPECIMENOrdering Facility: [facility] Address: [address] [place] [address] Result Comment: The [place] Diabetes Association (ADA) provides guidance for cutoff values for fasting glucose and random glucose. The ADA defines fasting as no caloric intake for at least 8 hours. Fasting plasma glucose results between 100 to 125 mg/dL indicate increased risk for diabetes (prediabetes). Fasting plasma glucose results greater than or equal to 126 mg/dL meet the criteria for diagnosis of diabetes. In the absence of unequivocal hyperglycemia, results should be confirmed by repeat testing. In a patient with classic symptoms of hyperglycemia or hyperglycemic crisis, random plasma glucose results greater than or equal to 200 mg/dL meet the criteria for diagnosis of diabetes. Reference: Standards of Medical Care in Diabetes 2016, [place] Diabetes Association. Diabetes Care. 2016.39(Suppl 1). Performed By: #### 2 432-, ####[facility] MILLWCONCHALIManuel [id number] [place] [address] [place] Potassium [Moles/Vol] 4.4 mmol/L Normal 3.7-5.1 [facility] Comment on above: Order Comment: Speci men Type: BLOOD SPECIMENOrdering Facility: [facility] Address: [address] [place] [address] Performed By: #### 2 43203-29, ####[facility] MARYCONCHAManuel [id number] [place] [address] [place] Sodium [Moles/Vol] 137 mmol/L Normal 136-144 [facility] Comment on above: Order Comment: Speci gigi Type: BLOOD SPECIMENOrdering Facility: [facility] Address: [address] [place] [address] Performed By: #### 2 4320-04, ####[facility] MARYCARSON [id number] [place] [address] [place] Urea nitrogen [Mass/Vol] 20 mg/dL Normal 9-24 [facility] Comment on above: Order Comment: Speci men Type: BLOOD SPECIMENOrdering Facility: [facility] Address: [address] [place] [address] Performed By: #### 2 43203-29, ####[facility] MARYCONCHALIA [id number] [place] [address] [place] CBC W Auto Differential pane l (Bld)on 04-27-2024 Basophils (Bld) [#/Vol] 0.05 10*3/uL Normal <0.11 [facility] Comment on above: Order Comment: Speci men Type: BLOOD SPECIMENOrdering Facility: [facility] Address: [address] [place] [address] Performed By: #### 5 7021-8 ####[facility] COASTWCONCHALIA [id number] [place] [address] [place] Basophils/100 WBC (Bld) 0.9 % Normal [facility] Comment on above: Order Comment: Speci men Type: BLOOD SPECIMENOrdering Facility: [facility] Address: [address] [place] [address] Performed By: #### 5 7021-8 ####[facility] [id number] [place] [address] [place] Differential cell count method Nom (Bld) Auto Normal [facility] Comment on above: Order Comment: Speci men Type: BLOOD SPECIMENOrdering Facility: [facility] Address: [address] [place] [address] Performed By: #### 5 7021-8 ####[facility] BE[facility]HA [id number] [place] [address] [place] Eosinophils (Bld) [#/Vol] 0.23 10*3/uL Normal <0.46 [facility] Comment on above: Order Comment: Speci men Type: BLOOD SPECIMENOrdering Facility: [facility] Address: [address] [place] [address] Performed By: #### 5 7021-8 ####[facility] [id number] [place] [address] [place] Eosinophils/100 WBC (Bld) 4.0 % Normal [facility] Comment on above: Order Comment: Speci men Type: BLOOD SPECIMENOrdering Facility: [facility] Address: [address] [place] [address] Performed By: #### 5 7021-8 ####[facility] DEANREEDS SPRINGKATHIAA [id number] [place] [address] [place] Erythrocyte distribution width (RBC) [Ratio] 12.7 % Normal 11.5-15.0 [facility] Comment on above: Order Comment: Speci men Type: BLOOD SPECIMENOrdering Facility: [facility] Address: [address] [place] [address] Performed By: #### 5 7021-8 ####[facility]CONCHAFILLMORE [facility] [id number] [place] [address] [place] Hematocrit (Bld) [Volume fraction] 44.9 % Normal 39.0-51.0 [facility] Comment on above: Order Comment: Speci men Type: BLOOD SPECIMENOrdering Facility: [facility] Address: [address] [place] [address] Performed By: #### 5 7021-8 ####[facility] [id number] [place] [address] [place] Hemoglobin (Bld) [Mass/Vol] 15.0 g/dL Normal 13.0-17.0 [facility] Comment on above: Order Comment: Speci men Type: BLOOD SPECIMENOrdering Facility: [facility] Address: [address] [place] [address] Performed By: #### 5 7021-8 ####[facility] CENTERLIA [id number] [place] [address] [place] Immature granulocytes (Bld) [#/Vol] 10*3/uL Normal <0.10 [facility] Comment on above: Order Comment: Speci men Type: BLOOD SPECIMENOrdering Facility: [facility] Address: [address] [place] [address] Performed By: #### 5 7021-8 ####[facility] COASTLEEA [id number] [place] [address] [place] Immature granulocytes/100 WBC (Bld) 0.2 % Normal [facility] Comment on above: Order Comment: Speci men Type: BLOOD SPECIMENOrdering Facility: [facility] Address: [address] [place] [address] Performed By: #### 5 7021-8 ####[facility] MARYCONCHAManuel [id number] [place] [address] [place] Lymphocytes (Bld) [#/Vol] 1.76 10*3/uL Normal 1.00-4.00 [facility] Comment on above: Order Comment: Speci men Type: BLOOD SPECIMENOrdering Facility: [facility] Address: [address] [place] [address] Performed By: #### 5 7021-8 ####[facility] [id number] [place] [address] [place] Lymphocytes/100 WBC (Bld) 30.3 % Normal [facility] Comment on above: Order Comment: Speci men Type: BLOOD SPECIMENOrdering Facility: [facility] Address: [address] [place] [address] Performed By: #### 5 7021-8 ####[facility]ENTERSTEVENSONA [id number] [place] [address] [place] MCH (RBC) [Entitic mass] 31.6 pg Normal 26.0-34.0 [facility] Comment on above: Order Comment: Speci men Type: BLOOD SPECIMENOrdering Facility: [facility] Address: [address] [place] [address] Performed By: #### 5 7021-8 ####[facility] MARYNCLIA [id number] [place] [address] [place] MCHC (RBC) [Mass/Vol] 33.4 g/dL Normal 30.5-36.0 [facility] Comment on above: Order Comment: Speci men Type: BLOOD SPECIMENOrdering Facility: [facility] Address: [address] [place] [address] Performed By: #### 5 7021-8 ####[facility] [id number] [place] [address] [place] MCV (RBC) [Entitic vol] 94.7 fL Normal 80.0-100.0 [facility] Comment on above: Order Comment: Speci men Type: BLOOD SPECIMENOrdering Facility: [facility] Address: [address] [place] [address] Performed By: #### 5 7021-8 ####[facility] [id number] [place] [address] [place] Monocytes (Bld) [#/Vol] 0.68 10*3/uL Normal <0.87 [facility] Comment on above: Order Comment: Speci men Type: BLOOD SPECIMENOrdering Facility: [facility] Address: [address] [place] [address] Performed By: #### 5 7021-8 ####[facility] [id number] [place] [address] [place] Monocytes/100 WBC (Bld) 11.7 % Normal [facility] Comment on above: Order Comment: Speci men Type: BLOOD SPECIMENOrdering Facility: [facility] Address: [address] [place] [address] Performed By: #### 5 7021-8 ####[facility] [id number] [place] [address] [place] Neutrophils (Bld) [#/Vol] 3.08 10*3/uL Normal 1.45-7.50 [facility] Comment on above: Order Comment: Speci men Type: BLOOD SPECIMENOrdering Facility: [facility] Address: [address] [place] [address] Performed By: #### 5 7021-8 ####[facility] JINGWCONCHALIA [id number] [place] [address] [place] [facility] Neutrophils/100 WBC (Bld) 52.9 % Normal [facility] Comment on above: Order Comment: Speci men Type: BLOOD SPECIMENOrdering Facility: [facility] Address: [address] [place] [address] Performed By: #### 5 7021-8 ####[facility] MARYCONCHALIA [id number] [place] [address] [place] Nucleated RBC (Bld) [#/Vol] 10*3/uL Normal <0.01 [facility] Comment on above: Order Comment: Speci men Type: BLOOD SPECIMENOrdering Facility: [facility] Address: [address] [place] [address] Performed By: #### 5 7021-8 ####[facility] MARYNCLIA [id number] [place] [address] [place] Nucleated RBC/100 WBC (Bld) [Ratio] 0.0 /100 WBC Normal [facility] Comment on above: Order Comment: Speci men Type: BLOOD SPECIMENOrdering Facility: [facility] Address: [address] [place] [address] Performed By: #### 5 7021-8 ####[facility] MARYNCLIA [id number] [place] [address] [place] Platelet mean volume (Bld) [Entitic vol] 10.2 fL Normal 9.0-12.7 [facility] Comment on above: Order Comment: Speci men Type: BLOOD SPECIMENOrdering Facility: [facility] Address: [address] [place] [address] Performed By: #### 5 7021-8 ####[facility]ENTERLIA [id number] [place] [address] [place] Platelets (Bld) [#/Vol] 215 10*3/uL Normal 150-400 [facility] Comment on above: Order Comment: Speci men Type: BLOOD SPECIMENOrdering Facility: [facility] Address: [address] [place] [address] Performed By: #### 5 7021-8 ####[facility] [id number] [place] [address] [place] RBC (Bld) [#/Vol] 4.74 10*6/uL Normal 4.20-6.00 [facility] Comment on above: Order Comment: Speci men Type: BLOOD SPECIMENOrdering Facility: [facility] Address: [address] [place] [address] Performed By: #### 5 7021-8 ####[facility] [id number] [place] [address] [place] WBC (Bld) [#/Vol] 5.81 10*3/uL Normal 3.70-11.00 [facility] Comment on above: Order Comment: Speci men Type: BLOOD SPECIMENOrdering Facility: [facility] Address: [address] [place] [address] Performed By: #### 5 7021-8 ####[facility] [id number] [place] [address] [place] HbA1c (Bld)on 04-27-2024 Average glucose Estimated from glycated hemoglobin (Bld) [Mass/Vol] 111 mg/dL Normal [facility] Comment on above: Order Comment: Speci men Type: BLOOD SPECIMENOrdering Facility: [facility] Address: [address] [place] [address] Result Comment: eAG: (Estimated average glucose) is a calculated value from HgbA1c and is client care representative of the average blood glucose level in the last 2-3 month period. Performed By: #### 5 5454-3 ####[facility] [id number] [place] [address] [place] HbA1c (Bld) [Mass fraction] 5.5 % Normal 4.3-5.6 [facility] Comment on above: Order Comment: Speci men Type: BLOOD SPECIMENOrdering Facility: [facility] Address: [address] [place] [address] Result Comment: Amer ican Diabetes Association guidelines indicate that patients with HgbA1c in the range 5.7-6.4% are at increased risk for development of diabetes, and intervention by lifestyle modification may be beneficial. HgbA1c greater or equal to 6.5% is considered diagnostic of diabetes. Performed By: #### 5 5454-3 ####[facility] LABCL[facility] [id number] [place] [address] [place] Magnesium SerPl-mCncon 04-27 Magnesium [Mass/Vol] 2.0 mg/dL Normal 1.7-2.3 [facility] Comment on above: Order Comment: Speci men Type: BLOOD SPECIMENOrdering Facility: [facility] Address: [address] [place] [address] Performed By: #### 2 4321-2, 27780-3 ####[facility] [id number] [place] [id number] [place] TSH SerPl-aCncon 04-27-2024 TSH Qn 2.970 m[IU]/L Normal 0.270-4.200 [facility] Comment on above: Order Comment: Speci men Type: BLOOD SPECIMENOrdering Facility: [facility] Address: [address] [place] [address] Performed By: #### 2 986-8, 2132-9, 3016-3 ####[facility] [id number] [place] [address] [place] Testost SerPl-mCncon 025 Testosterone [Mass/Vol] 213 ng/dL Normal 193-824 [facility] Comment on above: Order Comment: Speci men Type: BLOOD SPECIMENOrdering Facility: [facility] Address: [address] [place] [address] Result Comment: A te stosterone level in the 193-320 ng/dL range with associated clinical symptoms is considered low and may indicate hypogonadism (from [facility] [phone]:123-135). Results >320 ng/dL are considered normal. Performed By: #### 2 986-8, 9, 3015-3 ####[facility] [id number] [address] OF [place] Vit B12 [facility] 025 Cobalamin (Vitamin B12) [Mass/Vol] 627 pg/mL Normal 232-1245 [facility] Comment on above: Order Comment: Speci men Type: BLOOD SPECIMENOrdering Facility: [facility] Address: [address] [place] [address] Performed By: #### 2 986-8, 9, 3 ####[facility] [id number] [address] [facility] CNOVon 04-17-2024 [facility]OV [facility] CURTIS GUERRIER ([id number]) 1950 M Date Time Provider Department 04/17/24 11:00 AM JASON COOK During your visit today, we recorded the following information about you: Pulse Blood pressure Weight 56/minute 168/76 104.8 kg Jason Cook MD 04/17/2024 11:22 AM Signed Patient presents with: Fatigue: Fatigue after eating HPI: Patient presents today for office visit for follow up. Saw cardiology yesterday. Had gained some weight Was having some increased edema. They did stop the amlodipine and started him in hctz. No shortness of breath. No chest pain. He has not made any changes yet. He is unsure if dependent. No orthopnea. No redness or warmth in the legs. Echo is ordered and to be done per cardiology He mentioned to him that he has periods of rapid onset fatigue. Some times occurs in the evenings. Can happen after dinner but not with other meals. He wanted his sugars check however his glucose has usually been very good. He usually goes to bed at 7 pm and gets up at 3 am so the timing of his fatigue would actually be appropriate. He is unsure if snores. He was told in the past when he was in [facility]. They had suggested he have a sleep apnea test. He was noted to have symptoms associated with apnea while in the hospital. He never had the testing done. Feels pretty refreshed on arising. No polyuria, no polydipsia. No unexplained weight loss. He has a bmp ordered. No hot flashes. No decreased libido. MEDICATIONS: Current Outpatient Medications Medication Sig hydroCHLOROthiazide 25 mg tablet Take 1 tablet by mouth once daily. Psyllium Seed-Sucrose (METAMUCIL, SUGAR,) Take by mouth once daily. omeprazole (PRILOSEC) 20 mg capsule Take 1 capsule by mouth once daily. losartan (COZAAR) 100 mg tablet Take 1 tablet by mouth once daily. sildenafil (VIAGRA) 50 mg tablet Take 1 tablet by mouth as needed. rosuvastatin (CRESTOR) 40 mg tablet Take 1 tablet by mouth daily at bedtime. metoprolol tartrate, short acting, (LOPRESSOR) 50 mg tablet Take 1 tablet by mouth two times a day. albuterol HFA (PROVENTIL HFA, VENTOLIN HFA) 90 mcg/actuation inhaler Inhale 2 Puffs as instructed every 6 hours as needed for wheezing/shortness of breath. apixaban (ELIQUIS) 5 mg tab(s) Take 1 tablet by mouth twice daily. acetaminophen (TYLENOL ORAL) Take by mouth as needed. aspirin 81 mg chewable tablet Take 1 tablet by mouth once daily. therapeutic multivitamin (THERA VITAMIN) tablet Take 1 tablet by mouth daily with breakfast. No current facility-administered medications for this visit. ALLERGIES: ALLERGIES Allergen Reactions Iv Contrast [Iodine] Angioedema IV contrast 06/01/2019 Lipitor [Atorvastat* myalgia Lovastatin myalgia Qkmgibr-Ijy-Kps Red* Other: See Comments, Myalgia sore joints and muscles PAST MEDICAL HISTORY Diagnosis Date Acute deep vein thrombosis (DVT) of right lower extremity (HCC) 09/27/2017 Arthritis BPH (benign prostatic hypertrophy) with urinary obstruction 10/10/2013 Calculus of kidney Coronary artery disease 2016 Stent ?1 Diverticulitis Essential hypertension, benign GERD (gastroesophageal reflux disease) History of coronary artery stent placement 2016 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 Reports history of possible TIA PAST SURGICAL HISTORY Procedure Laterality Date BACK SURGERY HX CABG (4) VEIN GRAFTS AND ARTERIAL GRAFT(S) 10/2016 COLON SURGERY HX COLONOSCOPY 05/28/2014 Diverticular disease- repeat in 2024 COLONOSCOPY FLX DX W/COLLJ SPEC WHEN PFRMD 02/12/2002 Colonoscopy-repeat in -2011 COLONOSCOPY FLX DX W/COLLJ SPEC WHEN PFRMD 04/26/2017 Colonoscopy ESOPHAGOGASTRODUODENOSCOPY TRANSORAL DIAGNOSTIC 04/26/2017 EGD EYE SURGERY HX FISSURECTOMY INCL SPHINCTEROTOMY WHEN PERFORMED HEART SURGERY HX HERNIA REPAIR HX LAPS COLECTOMY PRTL W/COLOPXTSTMY LW ANAST 04/14/2016 with mobilization of splenic flexure for diverticulitis PAST SURGICAL HISTORY OF 1982 lower back herniated disc PAST SURGICAL HISTORY OF 2005 low back surgery PAST SURGICAL HISTORY OF 04/04/2015 cardiac stent insertion PAST SURGICAL HISTORY OF 03/2016 colon resection REVISE MEDIAN N/CARPAL TUNNEL SURG Bilateral 06/12/2020 Bilateral carpal tunnel release RPR 1ST INGUN HRNA AGE 5 YRS/> REDUCIBLE Hernia repair, inguinal w/ mesh - right TONSILLECTOMY PRIMARY/SECONDARY Tonsillectomy FAMILY HISTORY Problem Relation Age (more content not included)... Normal [facility] CNOVon 04-16-2024 CNOV Office Visit ([facility] ) CURTIS GUERRIER ([id number]) 1950 M Date Time Provider Department 04/16/24 9:40 AM JOSH LYNCH During your visit today, we recorded the following information about you: Pulse Blood pressure Weight 56/minute 186/76 105.1 kg Josh Lynch MD 04/16/2024 10:57 AM Signed Josh Lynch MD Interventional Cardiology [address] [place] [phone] Chief Complaint Patient presents with: Established Patient HISTORY OF PRESENT ILLNESS: Mr. Guerrier is a 74 year old male seen my office for follow-up prior history of severe three-vessel coronary artery disease with bypass surgery consisted of a ADDISON to the LAD vein graft to the PDA vein graft to the ramus and vein graft to the diagonal Hypertensive heart disease doing well from the cardiac point of view No angina Swelling in both legs likely caused by the amlodipine No symptoms or signs of congestive heart failure Cardiac Risk Factors age (male over 45, female over 55), hyperlipidemia, Hypertension. PAST MEDICAL HISTORY Diagnosis Date Acute deep vein thrombosis (DVT) of right lower extremity (HCC) 09/27/2017 Arthritis BPH (benign prostatic hypertrophy) with urinary obstruction 10/10/2013 Calculus of kidney Coronary artery disease 2016 Stent ?1 Diverticulitis Essential hypertension, benign GERD (gastroesophageal reflux disease) History of coronary artery stent placement 2016 Hypercalciuria 06/26/2012 Hypercholesterolemia Hyperlipidemia LDL goal < 100 04/17/2013 Other and unspecified hyperlipidemia Prostatic hypertrophy 2016 benign with outflow obstruction S/P CABG x 4 05/04/2017 [employer] workers comp claim Severe obesity with body mass index (BMI) of 35.0 to 35.9 and comorbidity ([facility] Snoring no JONAH Squamous cell skin cancer 05/13/2021 Stroke (HCC) patient denies diagnosis of stroke. Reports history of possible TIA PAST SURGICAL HISTORY Procedure Laterality Date BACK SURGERY HX CABG (4) VEIN GRAFTS AND ARTERIAL GRAFT(S) 10/2016 COLON SURGERY HX COLONOSCOPY 05/28/2014 Diverticular disease- repeat in 2024 COLONOSCOPY FLX DX W/COLLJ SPEC WHEN PFRMD 02/12/2002 Colonoscopy-repeat in COLONOSCOPY FLX DX W/COLLJ SPEC WHEN PFRMD 04/26/2017 Colonoscopy ESOPHAGOGASTRODUODENOSCOPY TRANSORAL DIAGNOSTIC 04/26/2017 EGD EYE SURGERY HX FISSURECTOMY INCL SPHINCTEROTOMY WHEN PERFORMED HEART SURGERY HX HERNIA REPAIR HX LAPS COLECTOMY PRTL W/COLOPXTSTMY LW ANAST 04/14/2016 with mobilization of splenic flexure for diverticulitis PAST SURGICAL HISTORY OF 1982 lower back herniated disc PAST SURGICAL HISTORY OF 2005 low back surgery PAST SURGICAL HISTORY OF 04/04/2015 cardiac stent insertion PAST SURGICAL HISTORY OF 03/2016 colon resection REVISE MEDIAN N/CARPAL TUNNEL SURG Bilateral 06/12/2020 Bilateral carpal tunnel release RPR 1ST INGUN HRNA AGE 5 YRS/> REDUCIBLE Hernia repair, inguinal w/ mesh - right TONSILLECTOMY PRIMARY/SECONDARY Tonsillectomy FAMILY HISTORY Problem Relation Age of Onset Heart Mother from CVA at age 75, CABG Hypertension Father Prostate Cancer Brother Coronary Artery Disease Brother stents other (pancreatic cancer) Sister Coronary Artery Disease Sister Coronary Artery Disease Sister Cancer Maternal Grandmother Parkinson?s Disease Maternal Grandfather Cancer Paternal Grandfather Social History Tobacco Use Smoking status: Former Current packs/day: 0.00 Types: Cigarettes Quit date: 06/18/1987 Years since quittin.8 Smokeless tobacco: Never Tobacco comments: quit smoking 1987 Vaping Use Vaping status: Never Used Substance Use Topics Alcohol use: Yes Comment: 1glass of wine a day Drug use: No ALLERGIES Allergen Reactions Iv Contrast [Iodine] Angioedema IV contrast 06/01/2019 Lipitor [Atorvastat* myalgia Lovastatin myalgia Aolnpdd-Hcf-Lva Red* Other: See Comments, Myalgia sore joints and muscles Medications: Current Outpatient Medications Medication Sig Dispense Refill Psyllium Seed-Sucrose (METAMUCIL, SUGAR,) Take by mouth once daily. omeprazole (PRILOSEC) 20 mg capsule Take 1 capsule by mouth once daily. 90 capsule 1 losartan (COZAAR) 100 mg tablet Take 1 tablet by mouth once daily. 90 tablet 3 sildenafil (VIAGRA) 50 mg tablet Take 1 tablet by mouth as needed. 30 tablet 5 rosuvastatin (CRESTOR) 40 mg tablet Take 1 tablet by mouth daily at bedtime. 90 tablet 3 metoprolol tartrate, short acting, (LOPRESSOR) 50 mg tablet Take 1 tablet by mouth two times a day. 180 tablet 3 albuterol HFA (PROVENTIL HFA, VENTOLIN HFA) 90 mcg/actuation inhaler Inhale 2 Puffs as instructed every 6 hours as needed for wheezing/shortness of breath. 1 Each 2 apixaban (ELIQUIS) 5 mg tab(s) Take 1 tablet by mouth twice daily. 180 tablet 3 acetaminop (more content not included)... [facility] CURTIS GUERRIER ([id number]) 1950 M Date Time Provider Department 04/11/24 JOSH LYNCH During your visit today, we recorded the following information about you: Karl Deluca 04/11/2024 9:07 AM Signed Patient would like any prescriptions to be sent through [facility]. Please advise and confirm with patient on refills. Thank you. Allergies As of Date: 04/11/2024 Noted Allergy Reaction IV CONTRAST (IODINE) 06/04/2019 18 - Angioedema Comments: IV contrast 06/01/2019 LIPITOR (ATORVASTATIN CALCIUM) 03/06/2007 Comments: myalgia LOVASTATIN 03/06/2007 Comments: myalgia [id number] REDUCTASE INHIBIT*04/05/2011 14 - Other: See Comments 17 - Myalgia Comments: sore joints and muscles Date Reviewed: 11/30/2023 Reviewed by: Galindo Redmond MA - Fully Assessed Reason for Visit: Medication Update [3466] Prescriptions as of 04/11/2024 - Psyllium Seed-Sucrose (METAMUCIL, SUGAR,) Take by mouth once daily. - amLODIPine (NORVASC) 2.5 mg tablet Take 1 tablet by mouth once daily. Per Dr. Dietz - omeprazole (PRILOSEC) 20 mg capsule Take 1 capsule by mouth once daily. - losartan (COZAAR) 100 mg tablet Take 1 tablet by mouth once daily. - sildenafil (VIAGRA) 50 mg tablet Take 1 tablet by mouth as needed. - rosuvastatin (CRESTOR) 40 mg tablet Take 1 tablet by mouth daily at bedtime. - metoprolol tartrate, short acting, (LOPRESSOR) 50 mg tablet Take 1 tablet by mouth two times a day. - albuterol HFA (PROVENTIL HFA, VENTOLIN HFA) 90 mcg/actuation inhaler Inhale 2 Puffs as instructed every 6 hours as needed for wheezing/shortness of breath. - apixaban (ELIQUIS) 5 mg tab(s) Take 1 tablet by mouth twice daily. - acetaminophen (TYLENOL ORAL) Take by mouth as needed. - aspirin 81 mg chewable tablet Take 1 tablet by mouth once daily. - therapeutic multivitamin (THERA VITAMIN) tablet Take 1 tablet by mouth daily with breakfast. Meds Comments as of 11/08/2014: Advil as needed. Heather Odonnell Ma Problem List As Of Date 04/11/2024 Noted Resolved Essential hypertension, benign [I10] Sciatica [M54.30] 03/06/2007 12/04/2015 Anal fissure [K60.2] 11/04/2008 12/04/2015 Hearing loss [H91.90] 01/12/2010 Hematuria [R31.9] 05/23/2012 12/04/2015 Urinary frequency [R35.0] 05/23/2012 07/18/2018 Hypercalciuria [R82.994] 06/26/2012 Hyperlipidemia with target LDL less than 100 [E*04/17/2013 History of kidney stones [Z87.442] 06/18/2013 Elevated PSA [R97.20] 06/18/2013 11/11/2021 Benign prostatic hyperplasia with urinary obstr*10/10/2013 Diverticulitis of colon [K57.32] 05/20/2014 07/18/2018 GERD (gastroesophageal reflux disease) [K21.9] 05/20/2014 Abdominal pain, acute, right upper quadrant [R1*11/08/2014 12/04/2015 Presence of drug coated stent in LAD coronary a*05/05/2015 Obesity (BMI 30-39.9) [E66.9] 10/15/2015 LLQ pain [R10.32] 11/20/2015 12/04/2015 Atherosclerosis of [place] coronary artery with *11/08/2016 05/04/2017 Lipid disorder [E78.9] 11/08/2016 Atelectasis [J98.11] 11/12/2016 07/18/2018 Postprocedural hypotension [I95.81] 11/12/2016 11/14/2016 Pain, postoperative, acute [G89.18] 11/12/2016 05/04/2017 Stress hyperglycemia [R73.9] 11/13/2016 11/15/2016 SUMMARY 11/15/2016 11/17/2022 Paroxysmal A-fib (HCC) [I48.0] 11/20/2016 05/04/2017 ASHD (arteriosclerotic heart disease) [I25.10] 05/04/2017 S/P CABG x 4 [Z95.1] 05/04/2017 Plantar fasciitis of right foot [M72.2] 12/02/2017 07/18/2018 Family history of prostate cancer [Z80.42] 07/18/2018 Osteoarthritis of spine with radiculopathy, cer*07/18/2018 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] 09/20/2019 11/17/2022 Lumbar radiculopathy [M54.16] 09/20/2019 Shoulder impingement syndrome, right [M75.41] 01/02/2020 11/17/2022 Shoulder impingement syndrome, left [M75.42] 01/02/2020 11/17/2022 Paroxysmal atrial fibrillation (HCC) [I48.0] 10/10/2020 Squamous cell skin cancer [C44.92] 05/13/2021 11/17/2022 History of squamous cell carcinoma [Z85.89] 11/17/2022 Preop testing [Z01.818] 09/08/2023 11/30/2023 Arteriosclerosis of coronary artery [I25.10] 06/22/2022 Obesity, Class II, BMI 35-39.9 [E66.812] 10/03/2023 Encounter Status:Closed by ROSE MARIETASIA on 04/11/24 Normal [facility] Discharge Instructionon 12- Discharge Instruction [facility] Medical Records Department [address] [place] [address] Instructions for Home/Discharge Instructions 03/06/24 0929 MR#: [id number] Acct: [id number] Name: CURTIS GUERRIER Rep #: [id number] : 1950 74 From: Jair Jaquez MD PCP: Dr. Jason Cook MD Status[place] Discharge Instructions Diet Discharge Diet: No restrictions DC O2, CPAP, BIPAP needs Additional Home O2 Discharge instructions: No Dressing / Incision Discharge Activity: Return to Normal Activity Dressing / Incision Call your doctor if your incision/area has: Increased Pain/ Swelling Follow Up Care Please Follow Up With: Jair Jaquez MD When: 1 month Test Results: Test results from this visit will be discussed in further detail at your follow-up appointment, if applicable. Discharge Plan Admission Attending Provider: Jair Jaquez Primary Care Provider: Jason Cook Instructions Print Language: Armenian Discharge Orders/Prescriptions Prescriptions: No Action losartan 100 mg tablet 100 mg PO DAILY acetaminophen [Tylenol] 325 mg capsule 325 mg PO Q6H PRN (Reason: Pain Or Fever) apixaban 5 mg tablet 5 mg PO BID Qty: 180 4RF Patient Comments: LAST DOSE 03/03/24 sildenafil [Viagra] 50 mg tablet 50 mg PO DAILY PRN (Reason: sexual activity) Rx Instructions: administer 30 minutes to 4 hours before activity aspirin 81 MG tablet,chewable 81 mg PO DAILY@0800 Patient Comments: Blood thinner for heart health omeprazole 20 mg capsule,delayed release(DR/EC) 20 mg PO SUWEFR Patient Comments: Acid reflux rosuvastatin 10 mg tablet 40 mg PO QHS multivitamin 1 EACH tablet 1 tab PO DAILY metoprolol tartrate 50 mg tablet 50 mg PO BID albuterol sulfate [ProAir HFA] 90 mcg/actuation Hfa Aerosol Inhaler 2 puff INHALATION Q6H PRN PRN (Reason: Shortness Of Breath) psyllium husk [Daily Fiber] 0.4 gram capsule 0.4 g PO DAILY amlodipine 2.5 mg tablet 2.5 mg PO DAILY Qty: 90 3RF Referrals / Follow Up: Jason Cook MD [Primary Care Provider] - Disposition Disposition (needs filled in before D/C Order can be placed): Home, Self Care 03/06/24929 Jair Jaquez MD CC: Dr. Jason Cook MD Signed [facility] MR/POSTOP.ANE 03-06-2024 MR/POSTOP.[facility] Medical Records Department [address] [place] [address] Anesthesia Postop Eval I 03/06/24954 MR#: [id number] Acct: [id number] Name: CURTIS GUERRIER Rep #: [id number] : 1950 74 From: Moraima Mix PCP: Dr. Jason Cook MD Status:[facility] Y Race: C Location: [place] [address] Anesthesia: Postop Eval I Current Vital Signs Temperature: 97.6 F Pulse Rate: 55 Blood Pressure: 118/63 Respiratory Rate: 16 Pulse Ox: 98 Oxygen Delivery Method: Room Air Assessment Airway patent: Yes Spontaneous unlabored respirations: Yes Mental status: Awake and Calm nausea: No Vomiting: No Anesthesia Complication: No Fluid Hydration Crystalloid volume administer (ml): 600 Total IV fluid infused: 600 Progress Note Anesthesia document: Postop Eval 1 completed: Yes 03/06/24955 Date Moraima Webb Signature: Date CC: Signed [facility] [id number] 03-06-2024 MR/POSTOPAN2 [facility] Medical Records Department [address] [place] [address] Anesthesia Postop Eval II 03/06/24 1027 MR#: [id number] Acct: [id number] Name: CURTIS GUERRIER Rep #: [id number] : 1950 74 From: Geovani Dobbs MD PCP: Dr. Jason Cook MD Status:REG SDC Y Race: C Location: [place] [address] Anesthesia Postop Eval I Sum Postop Eval Completion status Anesthesia document: Postop Eval 1 completed: Yes Anesthesia Postop Eval I Summary Anesthesia Postop Eval I Summary: Anesthesia Postop Eval I: Assessment Summary Airway patent Yes 03/06/24 09:56 CARDIOLOGY NURSE.GDOTT Spontaneous unlabored Yes 03/06/24 09:56 CARDIOLOGY NURSE.GDOTT respirations Mental status Awake,Calm 03/06/24 09:56 CARDIOLOGY NURSE.GDOTT nausea No 03/06/24 09:56 CARDIOLOGY NURSE.GDOTT Vomiting No 03/06/24 09:56 CARDIOLOGY NURSE.GDOTT Anesthesia Postop Eval I: Fluid Summary Crystalloid volume administer 600 03/06/24 09:56 CARDIOLOGY NURSE.GDOTT (ml) Colloids volume administered ( ml) Blood Product volume administered (ml) Total IV fluid infused 600 03/06/24 09:56 CARDIOLOGY NURSE.GDOTT Anesthesia Postop Eval I: Summary Notes Anesthesia Complication No 03/06/24 09:56 CARDIOLOGY NURSE.GDOTT Anesthesia Complication Comment: Post-operative progress note Anesthesia: Postop Eval II Evaluation Mental status: Awake and Calm Pain Level: 1 nausea: No Vomiting: No Complications Anesthesia Complication: No 03/06/24 1027 Date Geovani Dobbs MD Cosigner Signature: Date CC: Signed Normal [facility] Operative Reporton 4 Operative Report [facility] Medical Records Department [address] [place] [address] Operative Report 03/06/24929 MR#: [id number] Acct: [id number] Name: CURTIS GUERRIER Rep #: [id number] : 1950 74 From: Jair Jaquez MD PCP: Dr. Jason Cook MD Status:DEP [facility] Location[place] [facility] Operative Report (Standard) Operative Information Date of Procedure: 03/06/24 Pre-Operative Diagnosis: vocal cord immobility, right Post-Operative Diagnosis: vocal cord immobility, right Surgery/Procedure Performed: vocal cord injection, right pipeman: No Type of Anesthesia: General RN Documented Start/Stop Times: Operation Date: 03/06/24 09:20 Case Time Into Pre-Op 03/06/24 07:51 Out of Pre-Op 03/06/24 09:16 Anesthesia Start 03/06/24 09:19 Into Room 03/06/24 09:19 Procedure Start Time: 09:31 Procedure Stop Time: 09:41 Select all DRAINS/GRAFTS/IMPLANTS that apply: None Estimated Blood Loss: 0 Specimen collected: No Description of surgery: on the day of the procedure, after appropriate informed consent was obtained, the patient was brought to the operating room and placed in supine position on the operating table. he was placed under general endotracheal anesthesia by the anesthesiologist. the endotracheal tube was secured, the eyes were taped. the table was rotated 90 degrees toward the surgeon. given the patients prior difficulty with direct visualization, the glide scope was used to obtain a view of the glottis. the right paraglottic space at the junction of the anterior 2/3 and posterior 1/3 of the vocal cord was injected with 0.8cc of prolaryn gel. he was awoken from anesthesia and transferred to the PACU in stable condition. Surgical Findings: n/a Complications Complications: No 04/28/2434 Cosigner Signature (if applicable): CC: Dr. Jair Jaquez MD; Dr. Jason Cook MD Signed Normal [facility] Basic Metabolic Profile (BMP )on 03-01-2024 BUN/CRE 25.8 RATIO High 01-14 [facility] Comment on above: Performed By: #### L 503.6005 #### [facility] [address] [place], [place] [address], [address] CA,Total 8.9 mg/dL Normal 8.5-10.1 [facility] Comment on above: Performed By: #### L 503.6005 #### [facility] [address] [place], [address] Chloride [Moles/Vol] 107 mmol/L Normal 98-107 [facility] Comment on above: Performed By: #### L 503.6005 #### [facility] [address] [place], [address] CO2 [Moles/Vol] 28.0 mmol/L Normal 21.0-32.0 [facility] Comment on above: Performed By: #### L 503.6005 #### [facility] [address] [place], [address] Creatinine [Mass/Vol] 0.82 mg/dL Normal 0.70-1.30 [facility] Comment on above: Result Comment: The validity of the calculated GFR GFRAA in patients over 70 years has not been determined. Clinical correlation is essential. Performed By: #### L 503.6005 #### [facility] [address] [place], [address] EST GFR - AA 119 mL/min Normal >60 [facility] Comment on above: Result Comment: Afri can Singaporean GFR Calc Performed By: #### L 503.6005 #### [facility] [address] [place], [address] GAP 4 Low 5-15 [facility] Comment on above: Performed By: #### L 503.6005 #### [facility] [address] [place], [address] GFR/1.73 sq M.predicted among non-blacks MDRD (S/P/Bld) [Vol rate/Area] 98 mL/min/{1.73_m2} Normal >60 [facility] Comment on above: Result Comment: Non- GFR Calc Performed By: #### L 503.6005 #### [facility] [address] [place], [address] Glucose [Mass/Vol] 103 mg/dL Normal 74-106 [facility] Comment on above: Result Comment: Fast ing Glucose result from 100 to 125 mg/dL suggests IMPAIRED HOMEOSTASIS per A.D.A. criteria. Performed By: #### L 503.6005 #### [facility] [address] [place], [address] Potassium [Moles/Vol] 4.5 mmol/L Normal 3.5-5.1 [facility] Comment on above: Performed By: #### L 503.6005 #### [facility] [address] [place], [address] Sodium [Moles/Vol] 139 mmol/L Normal 136-145 [facility] Comment on above: Performed By: #### L 503.6005 #### [facility] [address] [place], [address] Urea nitrogen [Mass/Vol] 21 mg/dL High 7-18 [facility] Comment on above: Performed By: #### L 503.6005 #### [facility] [address] [place], [address] CBC-Complete Blood Cnt No Di ffon 03-01-2024 Erythrocyte distribution width (RBC) [Ratio] 12.7 % Normal 11.6-14.6 [facility] Comment on above: Performed By: #### L 503.6005 #### [facility] [address] [place], [address] Hematocrit (Bld) [Volume fraction] 46.5 % Normal 40-54 [facility] Comment on above: Performed By: #### L 503.6005 #### [facility] [address] [place], [address] Hemoglobin (Bld) [Mass/Vol] 15.0 g/dL Normal 13.0-16.5 [facility] Comment on above: Performed By: #### L 503.6005 #### [facility] [address] [place], [address] MCH (RBC) [Entitic mass] 31.1 pg Normal 27.0-32.0 [facility] Comment on above: Performed By: #### L 503.6005 #### [facility] [address] [place], [address] MCHC (RBC) [Mass/Vol] 32.3 g/dL Normal 32-36 [facility] Comment on above: Performed By: #### L 503.6005 #### [facility] [address] [place], [address] MCV (RBC) [Entitic vol] 96.5 fL High 80-94 [facility] Comment on above: Performed By: #### L 503.6005 #### [facility] [address] [place], [address] Platelet mean volume (Bld) [Entitic vol] 10.1 fL Normal 6.2-12.0 [facility] Comment on above: Performed By: #### L 503.6005 #### [facility] [address] [place], [address] Platelets (Bld) [#/Vol] 209 10*3/uL Normal 150-450 [facility] Comment on above: Performed By: #### L 503.6005 #### [facility] [address] [place], [address] RBC (Bld) [#/Vol] 4.82 10*6/uL Normal 4.6-6.2 [facility] Comment on above: Performed By: #### L 503.6005 #### [facility] [address] [place], [address] RDW SD 45.7 fl High 35.1-43.9 [facility] Comment on above: Performed By: #### L 503.6005 #### [facility] [address] [place], [address] WBC (Bld) [#/Vol] 6.4 10*3/uL Normal 4.4-11.0 [facility] Comment on above: Performed By: #### L 503.6005 #### [facility] [address] [place], [address] CNPNon 02-28-2024 [facility] CURTIS GUERRIER ([id number]) 1950 Date Time Provider Department 02/28/24 JASON COOK [facility] During your visit today, we recorded the following information about you: Shania Hernandez MA 02/28/2024 3:57 PM Signed Patient came to office and requested letter to stop eliquis for surgery with ENT. Pcp advised patient is taking eliquis for A-fib and only needs to stop 48 hours and can resume next day. Letter generated and given to patient Shania Hernandez MA Allergies As of Date: 02/28/2024 Noted Allergy Reaction IV CONTRAST (IODINE) 06/04/2019 18 - Angioedema Comments: IV contrast 06/01/2019 LIPITOR (ATORVASTATIN CALCIUM) 03/06/2007 Comments: myalgia LOVASTATIN 03/06/2007 Comments: myalgia MOISBUT-IVX-QAU REDUCTASE INHIBIT*04/05/2011 14 - Other: See Comments 17 - Myalgia Comments: sore joints and muscles Date Reviewed: 11/30/2023 Reviewed by: Galindo Redmond MA - Fully Assessed Reason for Visit: Letter [264] Cmt: Stop eliquis for surgery Prescriptions as of 02/28/2024 - Psyllium Seed-Sucrose (METAMUCIL, SUGAR,) Take by mouth once daily. - amLODIPine (NORVASC) 2.5 mg tablet Take 1 tablet by mouth once daily. Per Dr. Dietz - omeprazole (PRILOSEC) 20 mg capsule Take 1 capsule by mouth once daily. - losartan (COZAAR) 100 mg tablet Take 1 tablet by mouth once daily. - sildenafil (VIAGRA) 50 mg tablet Take 1 tablet by mouth as needed. - rosuvastatin (CRESTOR) 40 mg tablet Take 1 tablet by mouth daily at bedtime. - metoprolol tartrate, short acting, (LOPRESSOR) 50 mg tablet Take 1 tablet by mouth two times a day. - albuterol HFA (PROVENTIL HFA, VENTOLIN HFA) 90 mcg/actuation inhaler Inhale 2 Puffs as instructed every 6 hours as needed for wheezing/shortness of breath. - apixaban (ELIQUIS) 5 mg tab(s) Take 1 tablet by mouth twice daily. - acetaminophen (TYLENOL ORAL) Take by mouth as needed. - aspirin 81 mg chewable tablet Take 1 tablet by mouth once daily. - therapeutic multivitamin (THERA VITAMIN) tablet Take 1 tablet by mouth daily with breakfast. Meds Comments as of 11/08/2014: Advil as needed. 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] 06/26/2012 Hyperlipidemia with target LDL less than 100 [E*04/17/2013 History of kidney stones [Z87.442] 06/18/2013 Elevated PSA [R97.20] 06/18/2013 11/11/2021 Benign prostatic hyperplasia with urinary obstr*10/10/2013 Diverticulitis of colon [K57.32] 05/20/2014 07/18/2018 GERD (gastroesophageal reflux disease) [K21.9] 05/20/2014 Abdominal pain, acute, right upper quadrant [R1*11/08/2014 12/04/2015 Presence of drug coated stent in LAD coronary a*05/05/2015 Obesity (BMI 30-39.9) [E66.9] 10/15/2015 LLQ pain [R10.32] 11/20/2015 12/04/2015 Atherosclerosis of [place] coronary artery with *11/08/2016 05/04/2017 Lipid disorder [E78.9] 11/08/2016 Atelectasis [J98.11] 11/12/2016 07/18/2018 Postprocedural hypotension [I95.81] 11/12/2016 11/14/2016 Pain, postoperative, acute [G89.18] 11/12/2016 05/04/2017 Stress hyperglycemia [R73.9] 11/13/2016 11/15/2016 SUMMARY 11/15/2016 11/17/2022 Paroxysmal A-fib (HCC) [I48.0] 11/20/2016 05/04/2017 ASHD (arteriosclerotic heart disease) [I25.10] 05/04/2017 S/P CABG x 4 [Z95.1] 05/04/2017 Plantar fasciitis of right foot [M72.2] 12/02/2017 07/18/2018 Family history of prostate cancer [Z80.42] 07/18/2018 Osteoarthritis of spine with radiculopathy, cer*07/18/2018 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] 09/20/2019 11/17/2022 Lumbar radiculopathy [M54.16] 09/20/2019 Shoulder impingement syndrome, right [M75.41] 01/02/2020 11/17/2022 Shoulder impingement syndrome, left [M75.42] 01/02/2020 11/17/2022 Paroxysmal atrial fibrillation (HCC) [I48.0] 10/10/2020 Squamous cell skin cancer [C44.92] 05/13/2021 11/17/2022 History of squamous cell carcinoma [Z85.89] 11/17/2022 Preop testing [Z01.818] 09/08/2023 11/30/2023 Arteriosclerosis of coronary artery [I25.10] 06/22/2022 Obesity, Class II, BMI 35-39.9 [E66.812] 10/03/2023 Letter Text Encounter Status:Closed by SHANIA HERNANDEZ on 02/28/24 [facility] 02-14-2024 CNPN Telephone (AGCARDPOB ) CURTIS GUERRIER ([id number]) 1950 M Date Time Provider Department 02/14/24 JOSH LYNCH [employer] During your visit today, we recorded the following information about you: Aureliano Kate 02/14/2024 3:33 PM Signed Clearance scanned in from [facility] placed in Dr. lynch box to be reviewed. Aureliano Kate February 14, 2024 3:31 PM Mignon Darling LPN 02/28/2024 10:19 AM Signed [facility] [employer] is calling in asking about cardiac clearance request that was received by our office on 02/14/2024 for Mr. Guerrier. They are asking for clearance to be signed and returned for patient to be able to proceed with procedure on 03/06/2024. Clearance request is located in box for Dr. Lynch and scanned into patients chart as well. HARLEY Javier Sunsharae 02/28/2024 3:46 PM Signed Recieved completed clearance scanned in documents and faxed back to sender. Aureliano Kate February 28, 2024 3:46 PM Allergies As of Date: 02/14/2024 Noted Allergy Reaction IV CONTRAST (IODINE) 06/04/2019 18 - Angioedema Comments: IV contrast 06/01/2019 LIPITOR (ATORVASTATIN CALCIUM) 03/06/2007 Comments: myalgia LOVASTATIN 03/06/2007 Comments: myalgia RBUYKZH-BKH-SFK REDUCTASE INHIBIT*04/05/2011 14 - Other: See Comments 17 - Myalgia Comments: sore joints and muscles Date Reviewed: 11/30/2023 Reviewed by: Galindo Redmond MA - Fully Assessed Reason for Visit: Cardiac Clearance [4105] Prescriptions as of 02/28/2024 - Psyllium Seed-Sucrose (METAMUCIL, SUGAR,) Take by mouth once daily. - amLODIPine (NORVASC) 2.5 mg tablet Take 1 tablet by mouth once daily. Per Dr. Dietz - omeprazole (PRILOSEC) 20 mg capsule Take 1 capsule by mouth once daily. - losartan (COZAAR) 100 mg tablet Take 1 tablet by mouth once daily. - sildenafil (VIAGRA) 50 mg tablet Take 1 tablet by mouth as needed. - rosuvastatin (CRESTOR) 40 mg tablet Take 1 tablet by mouth daily at bedtime. - metoprolol tartrate, short acting, (LOPRESSOR) 50 mg tablet Take 1 tablet by mouth two times a day. - albuterol HFA (PROVENTIL HFA, VENTOLIN HFA) 90 mcg/actuation inhaler Inhale 2 Puffs as instructed every 6 hours as needed for wheezing/shortness of breath. - apixaban (ELIQUIS) 5 mg tab(s) Take 1 tablet by mouth twice daily. - acetaminophen (TYLENOL ORAL) Take by mouth as needed. - aspirin 81 mg chewable tablet Take 1 tablet by mouth once daily. - therapeutic multivitamin (THERA VITAMIN) tablet Take 1 tablet by mouth daily with breakfast. Meds Comments as of 11/08/2014: Advil as needed. 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] 06/26/2012 Hyperlipidemia with target LDL less than 100 [E*04/17/2013 History of kidney stones [Z87.442] 06/18/2013 Elevated PSA [R97.20] 06/18/2013 11/11/2021 Benign prostatic hyperplasia with urinary obstr*10/10/2013 Diverticulitis of colon [K57.32] 05/20/2014 07/18/2018 GERD (gastroesophageal reflux disease) [K21.9] 05/20/2014 Abdominal pain, acute, right upper quadrant [R1*11/08/2014 12/04/2015 Presence of drug coated stent in LAD coronary a*05/05/2015 Obesity (BMI 30-39.9) [E66.9] 10/15/2015 LLQ pain [R10.32] 11/20/2015 12/04/2015 Atherosclerosis of [place] coronary artery with *11/08/2016 05/04/2017 Lipid disorder [E78.9] 11/08/2016 Atelectasis [J98.11] 11/12/2016 07/18/2018 Postprocedural hypotension [I95.81] 11/12/2016 11/14/2016 Pain, postoperative, acute [G89.18] 11/12/2016 05/04/2017 Stress hyperglycemia [R73.9] 11/13/2016 11/15/2016 SUMMARY 11/15/2016 11/17/2022 Paroxysmal A-fib (HCC) [I48.0] 11/20/2016 05/04/2017 ASHD (arteriosclerotic heart disease) [I25.10] 05/04/2017 S/P CABG x 4 [Z95.1] 05/04/2017 Plantar fasciitis of right foot [M72.2] 12/02/2017 07/18/2018 Family history of prostate cancer [Z80.42] 07/18/2018 Osteoarthritis of spine with radiculopathy, cer*07/18/2018 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] 09/20/2019 11/17/2022 Lumbar radiculopathy [M54.16] 09/20/2019 Shoulder impingement syndrome, right [M75.41] 01/02/2020 11/17/2022 Shoulder impingement syndrome, left [M75.42] 01/02/2020 11/17/2022 Paroxysmal atrial fibrillation (HCC) [I48.0] 10/10/2020 Squamous cell skin cancer [C44.92] 05/13/2021 11/17/2022 History of squamous cell carcinoma [Z85.89] 11/17/2022 Preop testing [Z01.818] 09/08/2023 11/30/2023 Arteriosclerosis of coronary artery [I25.10] 06/22/2022 Obesity, Class II, BMI 35-39.9 [E66.812] 10/03/2023 Encounter Status:Closed by AURELIANO KATE on 02/14/24 Normal [facility] CNPGloria 02-06-2024 CNPN Telephone (AGCARDPOB ) CURTIS GUERRIER ([id number]) 1950 M Date Time Provider Department 02/06/24 JOSH LYNCH [employer] During your visit today, we recorded the following information about you: Fe Romero RN 02/06/2024 11:52 AM Signed ----- Message from Josh Lynch MD sent at 02/06/2024 10:04 AM EST ----- NORMAL STRESS Please inform patient Fe Arrington RN 02/06/2024 11:53 AM Signed Spoke with pt. Notified of test results. Pt voices understanding. Fe Romero RN Allergies As of Date: 02/06/2024 Noted Allergy Reaction IV CONTRAST (IODINE) 06/04/2019 18 - Angioedema Comments: IV contrast 06/01/2019 LIPITOR (ATORVASTATIN CALCIUM) 03/06/2007 Comments: myalgia LOVASTATIN 03/06/2007 Comments: myalgia UXIZKNQ-ECE-DGH REDUCTASE INHIBIT*04/05/2011 14 - Other: See Comments 17 - Myalgia Comments: sore joints and muscles Date Reviewed: 11/30/2023 Reviewed by: Galindo Redmond MA - Fully Assessed Reason for Visit: Results [95] Prescriptions as of 02/06/2024 - Psyllium Seed-Sucrose (METAMUCIL, SUGAR,) Take by mouth once daily. - amLODIPine (NORVASC) 2.5 mg tablet Take 1 tablet by mouth once daily. Per Dr. Dietz - omeprazole (PRILOSEC) 20 mg capsule Take 1 capsule by mouth once daily. - losartan (COZAAR) 100 mg tablet Take 1 tablet by mouth once daily. - sildenafil (VIAGRA) 50 mg tablet Take 1 tablet by mouth as needed. - rosuvastatin (CRESTOR) 40 mg tablet Take 1 tablet by mouth daily at bedtime. - metoprolol tartrate, short acting, (LOPRESSOR) 50 mg tablet Take 1 tablet by mouth two times a day. - albuterol HFA (PROVENTIL HFA, VENTOLIN HFA) 90 mcg/actuation inhaler Inhale 2 Puffs as instructed every 6 hours as needed for wheezing/shortness of breath. - apixaban (ELIQUIS) 5 mg tab(s) Take 1 tablet by mouth twice daily. - acetaminophen (TYLENOL ORAL) Take by mouth as needed. - aspirin 81 mg chewable tablet Take 1 tablet by mouth once daily. - therapeutic multivitamin (THERA VITAMIN) tablet Take 1 tablet by mouth daily with breakfast. Meds Comments as of 11/08/2014: Advil as needed. 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] 06/26/2012 Hyperlipidemia with target LDL less than 100 [E*04/17/2013 History of kidney stones [Z87.442] 06/18/2013 Elevated PSA [R97.20] 06/18/2013 11/11/2021 Benign prostatic hyperplasia with urinary obstr*10/10/2013 Diverticulitis of colon [K57.32] 05/20/2014 07/18/2018 GERD (gastroesophageal reflux disease) [K21.9] 05/20/2014 Abdominal pain, acute, right upper quadrant [R1*11/08/2014 12/04/2015 Presence of drug coated stent in LAD coronary a*05/05/2015 Obesity (BMI 30-39.9) [E66.9] 10/15/2015 LLQ pain [R10.32] 11/20/2015 12/04/2015 Atherosclerosis of [place] coronary artery with *11/08/2016 05/04/2017 Lipid disorder [E78.9] 11/08/2016 Atelectasis [J98.11] 11/12/2016 07/18/2018 Postprocedural hypotension [I95.81] 11/12/2016 11/14/2016 Pain, postoperative, acute [G89.18] 11/12/2016 05/04/2017 Stress hyperglycemia [R73.9] 11/13/2016 11/15/2016 SUMMARY 11/15/2016 11/17/2022 Paroxysmal A-fib (HCC) [I48.0] 11/20/2016 05/04/2017 ASHD (arteriosclerotic heart disease) [I25.10] 05/04/2017 S/P CABG x 4 [Z95.1] 05/04/2017 Plantar fasciitis of right foot [M72.2] 12/02/2017 07/18/2018 Family history of prostate cancer [Z80.42] 07/18/2018 Osteoarthritis of spine with radiculopathy, cer*07/18/2018 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] 09/20/2019 11/17/2022 Lumbar radiculopathy [M54.16] 09/20/2019 Shoulder impingement syndrome, right [M75.41] 01/02/2020 11/17/2022 Shoulder impingement syndrome, left [M75.42] 01/02/2020 11/17/2022 Paroxysmal atrial fibrillation (HCC) [I48.0] 10/10/2020 Squamous cell skin cancer [C44.92] 05/13/2021 11/17/2022 History of squamous cell carcinoma [Z85.89] 11/17/2022 Preop testing [Z01.818] 09/08/2023 11/30/2023 Arteriosclerosis of coronary artery [I25.10] 06/22/2022 Obesity, Class II, BMI 35-39.9 [E66.812] 10/03/2023 Encounter Status:Closed by FE ROMERO on 02/06/24 [facility] CNPN Telephone ([employer]) FAREEDCURTIS Rhianna ([id number]) 1950 M Date Time Provider Department 02/06/24 JOSH LYNCH During your visit today, we recorded the following information about you: Lindsay Santiago LPN 02/06/2024 10:07 AM Signed ----- Message from Josh Lynch MD sent at 02/06/2024 10:04 AM EST ----- NORMAL STRESS Please inform patient Lindsay Hanson LPN 02/06/2024 10:09 AM Signed I spoke to Curtis Guerrier and informed them of 's response to stress test results and recommendations. Patient voiced understanding. Lindsay Santiago LPN Allergies As of Date: 02/06/2024 Noted Allergy Reaction IV CONTRAST (IODINE) 06/04/2019 18 - Angioedema Comments: IV contrast 06/01/2019 LIPITOR (ATORVASTATIN CALCIUM) 03/06/2007 Comments: myalgia LOVASTATIN 03/06/2007 Comments: myalgia JRGSCHG-LEM-CII REDUCTASE INHIBIT*04/05/2011 14 - Other: See Comments 17 - Myalgia Comments: sore joints and muscles Date Reviewed: 11/30/2023 Reviewed by: Galindo Redmond MA - Fully Assessed Reason for Visit: Results [95] Prescriptions as of 02/06/2024 - Psyllium Seed-Sucrose (METAMUCIL, SUGAR,) Take by mouth once daily. - amLODIPine (NORVASC) 2.5 mg tablet Take 1 tablet by mouth once daily. Per Dr. Dietz - omeprazole (PRILOSEC) 20 mg capsule Take 1 capsule by mouth once daily. - losartan (COZAAR) 100 mg tablet Take 1 tablet by mouth once daily. - sildenafil (VIAGRA) 50 mg tablet Take 1 tablet by mouth as needed. - rosuvastatin (CRESTOR) 40 mg tablet Take 1 tablet by mouth daily at bedtime. - metoprolol tartrate, short acting, (LOPRESSOR) 50 mg tablet Take 1 tablet by mouth two times a day. - albuterol HFA (PROVENTIL HFA, VENTOLIN HFA) 90 mcg/actuation inhaler Inhale 2 Puffs as instructed every 6 hours as needed for wheezing/shortness of breath. - apixaban (ELIQUIS) 5 mg tab(s) Take 1 tablet by mouth twice daily. - acetaminophen (TYLENOL ORAL) Take by mouth as needed. - aspirin 81 mg chewable tablet Take 1 tablet by mouth once daily. - therapeutic multivitamin (THERA VITAMIN) tablet Take 1 tablet by mouth daily with breakfast. Meds Comments as of 11/08/2014: Advil as needed. 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] 06/26/2012 Hyperlipidemia with target LDL less than 100 [E*04/17/2013 History of kidney stones [Z87.442] 06/18/2013 Elevated PSA [R97.20] 06/18/2013 11/11/2021 Benign prostatic hyperplasia with urinary obstr*10/10/2013 Diverticulitis of colon [K57.32] 05/20/2014 07/18/2018 GERD (gastroesophageal reflux disease) [K21.9] 05/20/2014 Abdominal pain, acute, right upper quadrant [R1*11/08/2014 12/04/2015 Presence of drug coated stent in LAD coronary a*05/05/2015 Obesity (BMI 30-39.9) [E66.9] 10/15/2015 LLQ pain [R10.32] 11/20/2015 12/04/2015 Atherosclerosis of [place] coronary artery with *11/08/2016 05/04/2017 Lipid disorder [E78.9] 11/08/2016 Atelectasis [J98.11] 11/12/2016 07/18/2018 Postprocedural hypotension [I95.81] 11/12/2016 11/14/2016 Pain, postoperative, acute [G89.18] 11/12/2016 05/04/2017 Stress hyperglycemia [R73.9] 11/13/2016 11/15/2016 SUMMARY 11/15/2016 11/17/2022 Paroxysmal A-fib (HCC) [I48.0] 11/20/2016 05/04/2017 ASHD (arteriosclerotic heart disease) [I25.10] 05/04/2017 S/P CABG x 4 [Z95.1] 05/04/2017 Plantar fasciitis of right foot [M72.2] 12/02/2017 07/18/2018 Family history of prostate cancer [Z80.42] 07/18/2018 Osteoarthritis of spine with radiculopathy, cer*07/18/2018 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] 09/20/2019 11/17/2022 Lumbar radiculopathy [M54.16] 09/20/2019 Shoulder impingement syndrome, right [M75.41] 01/02/2020 11/17/2022 Shoulder impingement syndrome, left [M75.42] 01/02/2020 11/17/2022 Paroxysmal atrial fibrillation (HCC) [I48.0] 10/10/2020 Squamous cell skin cancer [C44.92] 05/13/2021 11/17/2022 History of squamous cell carcinoma [Z85.89] 11/17/2022 Preop testing [Z01.818] 09/08/2023 11/30/2023 Arteriosclerosis of coronary artery [I25.10] 06/22/2022 Obesity, Class II, BMI 35-39.9 [E66.812] 10/03/2023 Encounter Status:Closed by LINDSAY SANTIAGO on 02/06/24 [facility] CARDIAC PERF STRESS/EXERC ISEon 12-26-2023 NM CARDIAC PERF STRESS/EXERCISE * * *Final Report* * * DATE OF EXAM: Dec 26 2023 9:47AM WON 0004 - NM CARDIAC PERF STRESS/EXERCISE / PROCEDURE REASON: multiple diagnoses * * * * Physician Interpretation * * * * Stress Gas Specialist Report: [facility] Date of service: 12/26/2023 7:38:18 AM Supervising physician: Josh Lynch MD PATIENT: Name: MR. CURTIS GUERRIER Age: 73 years Gender: M The supervising physician was in the department and immediately available. * * * Final * * * PATIENT: Name: MR. CURTIS GUERRIER Age: 73 years Gender: M CONCLUSIONS: 1. SPECT Perfusion Study: Normal. 2. There is no scintigraphic evidence for inducible ischemia. 3. No evidence of scarred myocardium. 4. Left ventricle is normal in size. The left ventricle systolic function is normal. 5. This is a low risk scan. Gated Stress FBP Gated Rest FBP LVEF % 72 72 Prior Study Comparison Prior nuclear cardiology exam was performed on 11/04/2016. There has been no significant interval change. Nuclear Med Report:1-Day Gated SPECT Myocardial Perfusion with Exercise Stress: Myocardial perfusion imaging was performed at rest 30 to 60 minutes following the IV injection of the radiotracer. One minute prior to peak exercise, the patient was injected IV with the radiotracer. Gated post stress tomographic imaging was performed 10 to 20 minutes later. See administered radiotracer and doses below. [facility] Date of service: 12/26/2023 7:38:18 AM Ordering Physician: JOSH LYNCH. Requesting Physician: JOSH LYNCH Indication: Dyspnea and Assessment for known CAD Interpreting physician: Homar Elliott MD Height: 167.64 cm BSA: 2.14 m? Weight: 98.43 kg BMI: 35.0 kg/m? Exam Type: Rest Stress Radiopharm: Tc-99m Tetrofosmin Tc-99m Tetrofosmin Dosage(mCi): 13.8 32.0 Stress Agent: Treadmill Resting Blood Press: 166/80 mmHg Image Quality The overall study imaging quality was deemed to be good. FINDINGS: Left Ventricle Wall Motion: Stress IR:3D - Rest IR:3D - Gated Stress FBP - All segments are normal. Gated Rest FBP - All segments are normal. Reversibility - Gated Stress FBP Gated Rest FBP Stress IR:3D Gated Stress FBP Gated Rest FBP LVEF: 72 % 72 % ED Volume: 97 ml 109 ml ES Volume: 27 ml 30 ml TID: 0.82 Perfusion Findings Stress IR:3D - Summed Score=0 All segments demonstrate normal perfusion. Rest IR:3D - Summed Score=0 All segments demonstrate normal perfusion. Stress IR:3D Rest IR:3D Summed Score=0 Summed Score=0 LEFT VENTRICLE The left ventricle is normal in size. Left ventricular systolic function is normal. Stress Test Findings: There is no scintigraphic evidence for inducible ischemia. There is no evidence of scarring. * * * Final * * * Stress ECG Report: [facility] Date of service: 12/26/2023 7:38:18 AM Ordering physician: JOSH LYNCH transport specialist: Ana Fischer RN Interpreting physician: Josh Lynch MD Patient name: MR. CURTIS GUERRIER Age: 73 years Gender: M Height: 167.64 cm BSA: 2.14 m? Weight: 98.43 kg BMI: 35.0 kg/m? Indication: Atherosclerotic heart disease NOS and Shortness of breath Stress ECG Conclusion: Conclusion: Normal with exception due to exercise systolic and diastolic HTN and ventricular couplets Comments: Abnormal EKG with ST segment depression in the inferior and lateral leads Prior exam comparison: No significant changes except for BP response Stress ECG Summary: The patient's resting heart rate was 64 bpm and blood pressure was 166/80 mmHg. The patient exercised according to the Raffy protocol. The estimated end-exercise MET level achieved using the FRIEND equation * * * was 8.3, which is within the 50th to 75th percentile for age and sex. The estimated end-exercise MET level achieved using the previous ACSM equation was 10.2. The test was terminated due to general fatigue and the total exercise time was 9 minutes and 0 seconds. No symptoms provoked during stress. The maximum heart rate was 123 bpm, which is 85% of the predicted heart rate for age. This is an adequate heart rate response. Peak blood pressure was 230/94 mmHg. The double product achieved was [address]67[address]. Previous cardiovascular interventions: Diagnostic cath (11/08/16) CABG (11/12/16) : x4 Medications: Last Used AMLODIPINE 2 Days METOPROLOL 2 Days VIAGRA PRN Resting ECG: Normal Sinus Rhythm Symptoms at rest: No symptoms Exercise Protocol: Raffy Stress Exercise Table: +-----+ +--------+ +---+-- (more content not included)... Normal [facility] Heart Perfusion W multipl e states of exerciseon 12-26-2023 * * *Final Report* * * DATE OF EXAM: Dec 26 2023 9:47AM [address] CARDIAC PERF STRESS/EXERCISE / PROCEDURE REASON: multiple diagnoses * * * * Physician Interpretation * * * * Stress Gas Specialist Report: [facility] Date of service: 12/26/2023 7:38:18 AM Supervising physician: Josh Lynch MD PATIENT: Name: MR. CURTIS GUERRIER Age: 73 years Gender: M The supervising physician was in the department and immediately available. * * * Final * * * PATIENT: Name: MR. CURTIS GUERRIER Age: 73 years Gender: M CONCLUSIONS: 1. SPECT Perfusion Study: Normal. 2. There is no scintigraphic evidence for inducible ischemia. 3. No evidence of scarred myocardium. 4. Left ventricle is normal in size. The left ventricle systolic function is normal. 5. This is a low risk scan. Gated Stress FBP Gated Rest FBP LVEF % 72 72 Prior Study Comparison Prior nuclear cardiology exam was performed on 11/04/2016. There has been no significant interval change. Nuclear Med Report:1-Day Gated SPECT Myocardial Perfusion with Exercise Stress: Myocardial perfusion imaging was performed at rest 30 to 60 minutes following the IV injection of the radiotracer. One minute prior to peak exercise, the patient was injected IV with the radiotracer. Gated post stress tomographic imaging was performed 10 to 20 minutes later. See administered radiotracer and doses below. [facility] Date of service: 12/26/2023 7:38:18 AM Ordering Physician: JOSH LYNCH. Requesting Physician: JOSH LYNCH Indication: Dyspnea and Assessment for known CAD Interpreting physician: Homar Elliott MD Height: 167.64 cm BSA: 2.14 m Weight: 98.43 kg BMI: 35.0 kg/m Exam Type: Rest Stress Radiopharm: Tc-99m Tetrofosmin Tc-99m Tetrofosmin Dosage(mCi): 13.8 32.0 Stress Agent: Treadmill Resting Blood Press: 166/80 mmHg Image Quality The overall study imaging quality was deemed to be good. FINDINGS: Left Ventricle Wall Motion: Stress IR:3D - Rest IR:3D - Gated Stress FBP - All segments are normal. Gated Rest FBP - All segments are normal. Reversibility - Gated Stress FBP Gated Rest FBP Stress IR:3D Gated Stress FBP Gated Rest FBP LVEF: 72 % 72 % ED Volume: 97 ml 109 ml ES Volume: 27 ml 30 ml TID: 0.82 Perfusion Findings Stress IR:3D - Summed Score=0 All segments demonstrate normal perfusion. Rest IR:3D - Summed Score=0 All segments demonstrate normal perfusion. Stress IR:3D Rest IR:3D Summed Score=0 Summed Score=0 LEFT VENTRICLE The left ventricle is normal in size. Left ventricular systolic function is normal. Stress Test Findings: There is no scintigraphic evidence for inducible ischemia. There is no evidence of scarring. * * * Final * * * Stress ECG Report: [facility] Date of service: 12/26/2023 7:38:18 AM Ordering physician: JOSH LYNCH transport specialist: Ana Fischer RN Interpreting physician: Josh Lynch MD Patient name: MR. CURTIS GUERRIER Age: 73 years Gender: M Height: 167.64 cm BSA: 2.14 m Weight: 98.43 kg BMI: 35.0 kg/m Indication: Atherosclerotic heart disease NOS and Shortness of breath Stress ECG Conclusion: Conclusion: Normal with exception due to exercise systolic and diastolic HTN and ventricular couplets Comments: Abnormal EKG with ST segment depression in the inferior and lateral leads Prior exam comparison: No significant changes except for BP response Stress ECG Summary: The patient's resting heart rate was 64 bpm and blood pressure was 166/80 mmHg. The patient exercised according to the Raffy protocol. The estimated end-exercise MET level achieved using the FRIEND equation * * * was 8.3, which is within the 50th to 75th percentile for age and sex. The estimated end-exercise MET level achieved using the previous ACSM equation was 10.2. The test was terminated due to general fatigue and the total exercise time was 9 minutes and 0 seconds. No symptoms provoked during stress. The maximum heart rate was 123 bpm, which is 85% of the predicted heart rate for age. This is an adequate heart rate response. Peak blood pressure was 230/94 mmHg. The double product achieved was 92772. Previous (more content not included)... DIVISION OF RADIOLOGY Provider, Jonna Maxwell Santillan - 12/26/2023 * * *Final Report* * * DATE OF EXAM: Dec 26 2023 9:47AM WON 0004 - NM CARDIAC PERF STRESS/EXERCISE / PROCEDURE REASON: multiple diagnoses * * * * Physician Interpretation * * * * Stress Gas Specialist Report: [facility] Date of service: 12/26/2023 7:38:18 AM Supervising physician: Josh Lynch MD PATIENT: Name: MR. CURTIS GUERRIER Age: 73 years Gender: M The supervising physician was in the department and immediately available. * * * Final * * * PATIENT: Name: MR. CURTIS GUERRIER Age: 73 years Gender: M CONCLUSIONS: 1. SPECT Perfusion Study: Normal. 2. There is no scintigraphic evidence for inducible ischemia. 3. No evidence of scarred myocardium. 4. Left ventricle is normal in size. The left ventricle systolic function is normal. 5. This is a low risk scan. Gated Stress FBP Gated Rest FBP LVEF % 72 72 Prior Study Comparison Prior nuclear cardiology exam was performed on 11/04/2016. There has been no significant interval change. Nuclear Med Report:1-Day Gated SPECT Myocardial Perfusion with Exercise Stress: Myocardial perfusion imaging was performed at rest 30 to 60 minutes following the IV injection of the radiotracer. One minute prior to peak exercise, the patient was injected IV with the radiotracer. Gated post stress tomographic imaging was performed 10 to 20 minutes later. See administered radiotracer and doses below. [facility] Date of service: 12/26/2023 7:38:18 AM Ordering Physician: JOSH LYNCH. Requesting Physician: JOSH LYNCH Indication: Dyspnea and Assessment for known CAD Interpreting physician: Homar Elliott MD Height: 167.64 cm BSA: 2.14 m Weight: 98.43 kg BMI: 35.0 kg/m Exam Type: Rest Stress Radiopharm: Tc-99m Tetrofosmin Tc-99m Tetrofosmin Dosage(mCi): 13.8 32.0 Stress Agent: Treadmill Resting Blood Press: 166/80 mmHg Image Quality The overall study imaging quality was deemed to be good. FINDINGS: Left Ventricle Wall Motion: Stress IR:3D - Rest IR:3D - Gated Stress FBP - All segments are normal. Gated Rest FBP - All segments are normal. Reversibility - Gated Stress FBP Gated Rest FBP Stress IR:3D Gated Stress FBP Gated Rest FBP LVEF: 72 % 72 % ED Volume: 97 ml 109 ml ES Volume: 27 ml 30 ml TID: 0.82 Perfusion Findings Stress IR:3D - Summed Score=0 All segments demonstrate normal perfusion. Rest IR:3D - Summed Score=0 All segments demonstrate normal perfusion. Stress IR:3D Rest IR:3D Summed Score=0 Summed Score=0 LEFT VENTRICLE The left ventricle is normal in size. Left ventricular systolic function is normal. Stress Test Findings: There is no scintigraphic evidence for inducible ischemia. There is no evidence of scarring. * * * Final * * * Stress ECG Report: [facility] Date of service: 12/26/2023 7:38:18 AM Ordering physician: JOSH LYNCH transport specialist: Ana Fischer RN Interpreting physician: Josh Lynch MD Patient name: MR. CURTIS GUERRIER Age: 73 years Gender: M Height: 167.64 cm BSA: 2.14 m Weight: 98.43 kg BMI: 35.0 kg/m Indication: Atherosclerotic heart disease NOS and Shortness of breath Stress ECG Conclusion: Conclusion: Normal with exception due to exercise systolic and diastolic HTN and ventricular couplets Comments: Abnormal EKG with ST segment depression in the inferior and lateral leads Prior exam comparison: No significant changes except for BP response Stress ECG Summary: The patient's resting heart rate was 64 bpm and blood pressure was 166/80 mmHg. The patient exercised according to the Raffy protocol. The estimated end-exercise MET level achieved using the FRIEND equation * * * was 8.3, which is within the 50th to 75th percentile for age and sex. The estimated end-exercise MET level achieved using the previous ACSM equation was 10.2. The test was terminated due to general fatigue and the total exercise time was 9 minutes and 0 seconds. No symptoms provoked during stress. The maximum heart rate was 123 bpm, which is 85% of the predicted heart rate for age. This is an adequate heart rate response. Peak blood pressure was 230/94 mmHg. The double product achieved was 33738. Previous cardiovascular interventions: Diagnostic cath (11/08/16) CABG (11/12/16) : x4 Medications: Last Used AMLODIPINE 2 Days METOPROLOL 2 Days VIAGRA PRN Res (more content not included)... [place] [facility] Study observation (narrative) [place] Heart Perfusion W multipl e states of exerciseOrdered By: [facility] Provider on 12-26-2023 [place] Discharge Instructionon 11-26 Discharge Instruction [facility] Medical Records Department [address] [place] [address] Instructions for Home/Discharge Instructions 12/06/23 0742 MR#: [id number] Acct: [id number] Name: CURTIS GUERRIER Rep #: [id number] : 1950 73 From: Jair Jaquez MD PCP: Dr. Jason Cook MD Status[place] [facility] [place]charge Instructions Diet Discharge Diet: No restrictions Activity Return to work on:: 12/07/23July shower in (days): 0 Dressing / Incision Call your doctor if your incision/area has: Increased Pain/ Swelling Follow Up Care Please Follow Up With: Jair Jaquez MD When: 1 month Test Results: Test results from this visit will be discussed in further detail at your follow-up appointment, if applicable. Discharge Plan Admission Attending Provider: Jair Jaquez Primary Care Provider: Jason Cook Instructions Print Language: Armenian Discharge Orders/Prescriptions Prescriptions: No Action losartan 100 mg tablet 100 mg PO DAILY acetaminophen [Tylenol] 325 mg capsule 325 mg PO Q6H PRN (Reason: Pain Or Fever) apixaban 5 mg tablet 5 mg PO BID Qty: 180 4RF sildenafil [Viagra] 50 mg tablet 50 mg PO DAILY PRN (Reason: sexual activity) Rx Instructions: administer 30 minutes to 4 hours before activity aspirin 81 MG tablet,chewable 81 mg PO DAILY@0800 Patient Comments: Blood thinner for heart health omeprazole 20 mg capsule,delayed release(DR/EC) 20 mg PO SUWEFR Patient Comments: Acid reflux rosuvastatin 10 mg tablet 40 mg PO QHS multivitamin 1 EACH tablet 1 tab PO DAILY metoprolol tartrate 50 mg tablet 50 mg PO BID albuterol sulfate [ProAir HFA] 90 mcg/actuation Hfa Aerosol Inhaler 2 puff INHALATION Q6H PRN PRN (Reason: Shortness Of Breath) psyllium husk [Daily Fiber] 0.4 gram capsule 0.4 g PO DAILY amlodipine 2.5 mg tablet 2.5 mg PO DAILY Qty: 90 3RF Other Ambulatory Orders: 12 Lead EKG (Routine) Timeframe: 20231205 Location: None Selected Ordered By: Dr. Joshua Mendoza Referrals / Follow Up: Jason Cook MD [Primary Care Provider] - Disposition Disposition (needs filled in before D/C Order can be placed): Home, Self Care 12/06/23744 Jair Jaquez MD CC: Dr. Jason Cook MD Signed [facility] MR/POSTOP.[facility] 12-06-2023 MR/POSTOP.[facility] Medical Records Department [address] [place] [address] Anesthesia Postop Eval I 12/06/23823 MR#: [id number] Acct: [id number] Name: CURTIS GUERRIER Rep #: [id number] : 1950 73 From: Geovani Dobbs MD PCP: Dr. Jason Cook MD Status:REG [facility] Y Race: C Location: [place] [address] Anesthesia: Postop Eval I Current Vital Signs Temperature: 96.8 F Pulse Rate: 60 Blood Pressure: 151/66 Respiratory Rate: 16 Pulse Ox: 99 Oxygen Delivery Method: Room Air Assessment Airway patent: Yes Spontaneous unlabored respirations: Yes Mental status: Awake and Calm nausea: No Vomiting: No Anesthesia Complication: Yes Anesthesia Complication Comment:: Upper lip was nicked with intubation. No swelling. Bleeding has stopped. Fluid Hydration Crystalloid volume administer (ml): 800 Total IV fluid infused: 800 Progress Note Anesthesia document: Postop Eval 1 completed: Yes 12/06/2334 Date Geovani Irvingignal Signature: Date CC: Signed Normal [facility] [id number] 12-06-2023 MR/POSTOPAN2 [facility] Medical Records Department [address] [place] [address] Anesthesia Postop Eval II 12/06/23851 MR#: [id number] Acct: [id number] Name: CURTIS GUERRIER Rep #: [id number] : 1950 73 From: Dhaval Villarreal MD PCP: Dr. Jason Cook MD Status:REG [facility] Y Race: C Location: [address] Anesthesia Postop Eval I Sum Postop Eval Completion status Anesthesia document: Postop Eval 1 completed: Yes Anesthesia Postop Eval I Summary Anesthesia Postop Eval I Summary: Anesthesia Postop Eval I: Assessment Summary Airway patent Yes 12/06/23 08:27 Spontaneous unlabored Yes 12/06/23 08:27 respirations Mental status Awake,Calm 12/06/23 08:27 nausea No 12/06/23 08:27 Vomiting No 12/06/23 08:27 Anesthesia Postop Eval I: Fluid Summary Crystalloid volume administer 800 12/06/23 08:34 (ml) Colloids volume administered ( ml) Blood Product volume administered (ml) Total IV fluid infused 800 12/06/23 08:34 Anesthesia Postop Eval I: Summary Notes Anesthesia Complication Yes 12/06/23 08:27 Anesthesia Complication Upper lip was 12/06/23 08:34 Comment: nicked with intubation. No swelling. Bleeding has stopped. Post-operative progress note Anesthesia: Postop Eval II Evaluation Mental status: Awake Pain Level: 0 nausea: No Vomiting: No 12/06/23851 Date Dhaval Villarreal MD Cosigner Signature: CC: Signed Normal [facility] Operative Reporton 4 Operative Report [facility] Medical Records Department [address] [place] [address] Operative Report 12/06/23 0746 MR#: [id number] Acct: [id number] Name: CURTIS GUERRIER Rep #: [id number] : 1950 73 From: Jair Jaquez MD PCP: Dr. 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 direct laryngoscopy with use of operating telescope and injection of right vocal cord Surgeon: Jair Jaquez Type of Anesthesia: General Description of Procedure: on the day of the procedure, after appropriate informed consent was obtained, the patient was brought to the operating room and placed in supine position on the operating table. he was placed under general endotracheal anesthesia by the anesthesiologist. the endotracheal tube was secured, the eyes were taped. the table was rotated 90 degrees toward the surgeon. an acceptable view was unable to be attained using the olivia given his anatomy and dentition. the glide scope was inserted and a complete glottic view was obtained. the right paraglottic space at the junction of the anterior 2/3 and posterior 1/3 was injected with 0.8cc of prolaryn gel until the cord was medialized. the patient was extubated uneventfully. he was transferred to the PACU in stable condition. 12/06/23 0813 Cosigner Signature (if applicable): CC: Dr. Jair Jaquez MD; Dr. Jason Cook MD Signed [facility] 12 Lead EKGon 12-05-[address] [facility] Cardiovascular Services [address] [place] [address] 12 Lead EKG 12/05/23 0656 MR#: [id number] Acct: [id number] Name: CURTIS GUERRIER Rep #: [id number] : 1950 73 From: Alec Zavala MD Attending Dr: Dr. Jair Jaquez MD Statu s: PRE SDC Ordering Dr: Jair Jaquez MD Date: 4 Location[place] [facility] Sex: M C Admitted: Test Reason : PRE OP Blood Pressure : / mmHG Vent. Rate : 058 BPM Atrial Rate : 058 BPM P-R Int : 200 ms QRS Dur : 098 ms QT Int : 428 ms P-R-T Axes : 008 -12 010 degrees QTc Int : 420 ms Sinus bradycardia Otherwise normal ECG Confirmed by JAKE MELTON, ALEC ([id number]), editor house organ CHERRY GARCIA ([id number]) on 12/05/2023 12:48:31 PM Referred By: Joseluis Jaquez Confirmed By:ALEC ZAVALA MD 12/05/23 1248 Date Alec Zavala MD CC: Dr. Jair Jaquez MD; Dr. Jason Cook MD Signed [facility] MRSA/SAID NASAL SCREENon MRSA+SAID SCRN Negative [facility] Comment on above: Performed By: #### M 100651, L510.4883 #### [facility] [address] [place], [address] Comprehensive Metabolic Prof ilon 12-01-2023 Albumin [Mass/Vol] 3.4 g/dL Normal 3.2-5.0 [facility] Comment on above: Order Comment: MR Performed By: #### M 100651, L500.8130 #### [facility] [address] [place], [address] Albumin/Globulin [Mass ratio] 0.9 {ratio} Normal 0.9-2.4 [facility] Comment on above: Order Comment: MR Performed By: #### M 100.651, L500.4050 #### [facility] [address] [place], [address] ALK P 54 U/L Normal 45-117 [facility] Comment on above: Order Comment: MR Performed By: #### M 100.651, L500.4050 #### [facility] [address] [place], [address] ALT [Catalytic activity/Vol] 21 U/L Normal 16-61 [facility] Comment on above: Order Comment: MR Performed By: #### M 100.651, L500.4050 #### [facility] [address] [place], [address] AST [Catalytic activity/Vol] 18 U/L Normal 15-37 [facility] Comment on above: Order Comment: MR Performed By: #### M 100.651, L500.4050 #### [facility] [address] [place], [address] Bilirubin [Mass/Vol] 0.60 mg/dL Normal 0.20-1.00 [facility] Comment on above: Order Comment: MR Result Comment: For patients on eltrombopag therapy, use of Dimension Yarnell TBIL is not recommended. Performed By: #### M 100.651, L500.4050 #### [facility] [address] [place], [address] BUN/CRE 21.3 RATIO High 10-20 [facility] Comment on above: Order Comment: MR Performed By: #### M 100.651, L500.4050 #### [facility] [address] [place], [address] CA,Total 9.1 mg/dL Normal 8.5-10.1 [facility] Comment on above: Order Comment: MR Performed By: #### M 100.651, L500.4050 #### [facility] [address] [place], [address] Chloride [Moles/Vol] 109 mmol/L High 98-107 [facility] Comment on above: Order Comment: MR Performed By: #### M 100.651, L500.4050 #### [facility] [address] [place], [address] CO2 [Moles/Vol] 27.0 mmol/L Normal 21.0-32.0 [facility] Comment on above: Order Comment: MR Performed By: #### M 100.651, L500.4050 #### [facility] [address] [place], [address] Creatinine [Mass/Vol] 0.94 mg/dL Normal 0.70-1.30 [facility] Comment on above: Order Comment: MR Result Comment: The validity of the calculated GFR GFRAA in patients over 70 years has not been determined. Clinical correlation is essential. Performed By: #### M 100.651, L500.4050 #### [facility] [address] [place], [address] EST GFR - AA 101 mL/min Normal >60 [facility] Comment on above: Order Comment: MR Result Comment: Afri can Singaporean GFR Calc Performed By: #### M 100.651, L500.4050 #### [facility] [address] [place], [address] GAP 4 Low 5-15 [facility] Comment on above: Order Comment: MR Performed By: #### M 100.651, L500.4050 #### [facility] [address] [place], [address] GFR/1.73 sq M.predicted among non-blacks MDRD (S/P/Bld) [Vol rate/Area] 84 mL/min/{1.73_m2} Normal >60 [facility] Comment on above: Order Comment: MR Result Comment: Non- GFR Calc Performed By: #### M 100.651, L500.4050 #### [facility] [address] [place], [address] Globulin (S) [Mass/Vol] 3.7 g/dL Normal 2.2-4.2 [facility] Comment on above: Order Comment: MR Performed By: #### M 100.651, L500.4050 #### [facility] [address] [place], [address] Glucose [Mass/Vol] 79 mg/dL Normal 74-106 [facility] Comment on above: Order Comment: MR Performed By: #### M 100.651, L500.4050 #### [facility] [address] [place], [address] Potassium [Moles/Vol] 4.2 mmol/L Normal 3.5-5.1 [facility] Comment on above: Order Comment: MR Performed By: #### M 100.651, L500.4050 #### [facility] [address] [place], [address] Sodium [Moles/Vol] 140 mmol/L Normal 136-145 [facility] Comment on above: Order Comment: MR Performed By: #### M 100.651, L500.4050 #### [facility] [address] [place], [address] T PROT 7.1 g/dL Normal 6.4-8.2 [facility] Comment on above: Order Comment: MR Performed By: #### M 100.651, L500.4050 #### [facility] [address] [place], [place], [address] Urea nitrogen [Mass/Vol] 20 mg/dL High 7-18 [facility] Comment on above: Order Comment: MR Performed By: #### M 100.651, L500.4050 #### [facility] [address] [place], [address] CNOVon 11-30-2023 [facility] CURTIS GUERRIER ([id number]) 1950 M Date Time Provider Department 11/30/23 8:40 AM JASON COOK [facility] During your visit today, we recorded the following information about you: Pulse Blood pressure Weight Height 59/minute 132/62 98.4 kg 1.676 m Jason Cook MD 11/30/2023 9:04 AM Signed Patient presents with: 6 Month Exam HPI: Patient presents today for office visit for follow up. HTN: Continues on Losartan 100 mg daily Amlodipine 2.5 mg daily Monitors his BP at home. Readings have been pretty good. Avg 130/75. Denies chest pain. Denies headaches. Denies palpitations and syncope. No new or worsening edema. 10/07 seen in [facility]. Dx with Cellulitis of right leg. Hospitalized for 3 days. Still with some swelling to right ankle. Denies redness or warmth. Is much better. Has a compression sock but not wearing it. Overall is much better. Saw [facility] post hospitalization. Needs clearance completed. from Dr Lynch. He states it has not yet been received. He has given instructions for holding eliquis Follows with Cardiology. Continues on Eliquis. Workup being done for shortness of breath. Scheduled for stress test on 12/26/23. Seeing cardiology. Saw [facility] for hoarseness. 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 Having procedure done for correction on 12/06/[address] Lynch is aware and managing eliquis post op. HLD: No myalgias. GERD: Continues taking Omeprazole. States he only takes this 3 times a week. Symptoms controlled. No GI complaints. Denies any bloody or black stool. Notes [facility]. Saw [facility]. Tinoco with Urology. Had lithotripsy 09/15/23. Completed 24 hr urine. Has not heard from Dr. Tinoco about this. No bleeding or bruising. Latest Ref Rng 09/26/2023 WBC 3.70 - 11.00 k/uL 5.50 RBC 4.20 - 6.00 m/uL 4.56 Hemoglobin 13.0 - 17.0 g/dL 14.6 Hematocrit 39.0 - 51.0 % 43.4 MCV 80.0 - 100.0 fL 95.2 MCH 26.0 - 34.0 pg 32.0 MCHC 30.5 - 36.0 g/dL 33.6 RDW-CV 11.5 - 15.0 % 12.7 Platelet Count 150 - 400 k/uL 195 MPV 9.0 - 12.7 fL 9.8 Neut% % 56.6 Abs Neut (ANC) 1.45 - 7.50 k/uL 3.12 Lymph% % 31.3 Abs Lymph 1.00 - 4.00 k/uL 1.72 [place]% % 9.3 Abs [place] <0.87 k/uL 0.51 Eosin% % 2.2 Abs Eosin <0.46 k/uL 0.12 Baso% % 0.4 Abs Baso <0.11 k/uL <0.03 Immature Gran % % 0.2 IMMATURE GRANS (ABS) <0.10 k/uL <0.03 NRBC /100 WBC 0.0 Absolute nRBC <0.01 k/uL <0.01 DTYPE Auto Protein, Total 6.3 - 8.0 g/dL 6.3 Albumin 3.9 - 4.9 g/dL 4.1 Calcium 8.5 - 10.2 mg/dL 8.9 Bilirubin, Total 0.2 - 1.3 mg/dL 0.8 Alkaline Phosphatase 38 - 113 U/L 51 AST 14 - 40 U/L 17 ALT 10 - 54 U/L 13 Glucose 74 - 99 mg/dL 101 (H) BUN 9 - 24 mg/dL 17 Creatinine 0.73 - 1.22 mg/dL 0.86 Sodium 136 - 144 mmol/L 136 Potassium 3.7 - 5.1 mmol/L 4.4 Chloride 98 - 107 mmol/L 104 CO2 22 - 30 mmol/L 22 Anion Gap 8 - 15 mmol/L 10 eGFR >=60 mL/min/1.73m? 91 Cholesterol, Total <200 mg/dL 179 Triglyceride <150 mg/dL 173 (H) HDL Cholesterol >39 mg/dL 50 Non HDL Cholesterol <130 mg/dL 129 Fasting Time hrs 12 VLDL Cholesterol <30 mg/dL 35 (H) TC:HDL Ratio <5.10 3.58 LDL Cholesterol <100 mg/dL 94 LDL:HDL Ratio <2.54 1.88 PSA Screening <2.60 ng/mL 1.41 Legend: (H) High MEDICATIONS: Current Outpatient Medications Medication Sig Psyllium Seed-Sucrose (METAMUCIL, SUGAR,) Take by mouth once daily. amLODIPine (NORVASC) 2.5 mg tablet Take 1 tablet by mouth once daily. Per Dr. Dietz omeprazole (PRILOSEC) 20 mg capsule Take 1 capsule by mouth once daily. losartan (COZAAR) 100 mg tablet Take 1 tablet by mouth once daily. sildenafil (VIAGRA) 50 mg tablet Take 1 tablet by mouth as needed. rosuvastatin (CRESTOR) 40 mg tablet Take 1 tablet by mouth daily at bedtime. metoprolol tartrate, short acting, (LOPRESSOR) 50 mg tablet Take 1 tablet by mouth two times a day. albuterol HFA (PROVENTIL HFA, VENTOLIN HFA) 90 mcg/actuation inhaler Inhale 2 Puffs as instructed every 6 hours as needed for wheezing/shortness of breath. apixaban (ELIQUIS) 5 mg tab(s) Take 1 tablet by mouth twice daily. acetaminophen (TYLENOL ORAL) Take by mouth as needed. aspirin 81 mg chewable tablet Take 1 tablet by mouth once daily. therapeutic multivitamin (THERA VITAMIN) tablet Take 1 tablet by mouth daily with breakfast. No current facility-administered medications for this visit. ALLERGIES: ALLERGIES Allergen Reactions Iv Contrast [Iodine] Angioedema IV contrast 06/01/2019 Lipitor [Atorvastat* myalgia Lovastatin myalgia Erihupa-Dwh-Gbt Red* Other: See Comments, Myalgia sore joints and muscles PAST MEDICAL HISTORY 09/27/2017: Acute deep vein thrombosis (DVT) of right lower extremity (HCC) No date: Arthritis 10/10/2013: BPH (benign prostatic hypertrophy) with urinary obstruction No tung (more content not included)... Normal [facility] CNPNon 11-22-2023 CNPN Telephone (AGCARDPOB ) CURTIS GUERRIER ([id number]) 1950 M Date Time Provider Department 11/22/23 JOSH LYNCH [employer] During your visit today, we recorded the following information about you: Aureliano Kate 11/22/2023 10:42 AM Signed Cardiac/Medication clearance received from [facility] for R voacl cord injection with Dr. Suresh Jaquez, Date TBD. Clearance scanned in - Placed in Dr. Lynch box to be reviewed. Aureliano Kate November 22, 2023 10:42 AM Aureliano Kate 12/02/2023 8:07 AM Signed Completed clearance scanned in and faxed back to sender. Aureliano Kate December 02, 2023 8:07 AM Allergies As of Date: 11/22/2023 Noted Allergy Reaction IV CONTRAST (IODINE) 06/04/2019 18 - Angioedema Comments: IV contrast 06/01/2019 LIPITOR (ATORVASTATIN CALCIUM) 03/06/2007 Comments: myalgia LOVASTATIN 03/06/2007 Comments: myalgia [id number]-[id number] REDUCTASE INHIBIT*04/05/2011 14 - Other: See Comments 17 - Myalgia Comments: sore joints and muscles Date Reviewed: 10/27/2023 Reviewed by: Elaina Amezcua APRN.PRODUCTION TEAM MANAGER - Fully Assessed Reason for Visit: Cardiac Clearance [7255] Prescriptions as of 12/02/2023 - Psyllium Seed-Sucrose (METAMUCIL, SUGAR,) Take by mouth once daily. - amLODIPine (NORVASC) 2.5 mg tablet Take 1 tablet by mouth once daily. Per Dr. Dietz - omeprazole (PRILOSEC) 20 mg capsule Take 1 capsule by mouth once daily. - losartan (COZAAR) 100 mg tablet Take 1 tablet by mouth once daily. - sildenafil (VIAGRA) 50 mg tablet Take 1 tablet by mouth as needed. - rosuvastatin (CRESTOR) 40 mg tablet Take 1 tablet by mouth daily at bedtime. - metoprolol tartrate, short acting, (LOPRESSOR) 50 mg tablet Take 1 tablet by mouth two times a day. - albuterol HFA (PROVENTIL HFA, VENTOLIN HFA) 90 mcg/actuation inhaler Inhale 2 Puffs as instructed every 6 hours as needed for wheezing/shortness of breath. - apixaban (ELIQUIS) 5 mg tab(s) Take 1 tablet by mouth twice daily. - acetaminophen (TYLENOL ORAL) Take by mouth as needed. - aspirin 81 mg chewable tablet Take 1 tablet by mouth once daily. - therapeutic multivitamin (THERA VITAMIN) tablet Take 1 tablet by mouth daily with breakfast. Meds Comments as of 11/08/2014: Advil as needed. Heather Odonnell Ma Problem List As Of Date 11/22/2023 Noted Resolved Essential hypertension, benign [I10] Sciatica [M54.30] 03/06/2007 12/04/2015 Anal fissure [K60.2] 11/04/2008 12/04/2015 Hearing loss [H91.90] 01/12/2010 Hematuria [R31.9] 05/23/2012 12/04/2015 Urinary frequency [R35.0] 05/23/2012 07/18/2018 Hypercalciuria [R82.994] 06/26/2012 Hyperlipidemia with target LDL less than 100 [E*04/17/2013 History of kidney stones [Z87.442] 06/18/2013 Elevated PSA [R97.20] 06/18/2013 11/11/2021 BPH (benign prostatic hypertrophy) with urinary*10/10/2013 Diverticulitis of colon [K57.32] 05/20/2014 07/18/2018 GERD (gastroesophageal reflux disease) [K21.9] 05/20/2014 Abdominal pain, acute, right upper quadrant [R1*11/08/2014 12/04/2015 Presence of drug coated stent in LAD coronary a*05/05/2015 Obesity (BMI 30-39.9) [E66.9] 10/15/2015 LLQ pain [R10.32] 11/20/2015 12/04/2015 Atherosclerosis of [place] coronary artery with *11/08/2016 05/04/2017 Lipid disorder [E78.9] 11/08/2016 Atelectasis [J98.11] 11/12/2016 07/18/2018 Postprocedural hypotension [I95.81] 11/12/2016 11/14/2016 Pain, postoperative, acute [G89.18] 11/12/2016 05/04/2017 Stress hyperglycemia [R73.9] 11/13/2016 11/15/2016 SUMMARY 11/15/2016 11/17/2022 Paroxysmal A-fib (HCC) [I48.0] 11/20/2016 05/04/2017 ASHD (arteriosclerotic heart disease) [I25.10] 05/04/2017 S/P CABG x 4 [Z95.1] 05/04/2017 Plantar fasciitis of right foot [M72.2] 12/02/2017 07/18/2018 Family history of prostate cancer [Z80.42] 07/18/2018 Osteoarthritis of spine with radiculopathy, cer*07/18/2018 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] 09/20/2019 11/17/2022 Lumbar radiculopathy [M54.16] 09/20/2019 Shoulder impingement syndrome, right [M75.41] 01/02/2020 11/17/2022 Shoulder impingement syndrome, left [M75.42] 01/02/2020 11/17/2022 Paroxysmal atrial fibrillation (HCC) [I48.0] 10/10/2020 Squamous cell skin cancer [C44.92] 05/13/2021 11/17/2022 History of squamous cell carcinoma [Z85.89] 11/17/2022 Preop testing [Z01.818] 09/08/2023 Arteriosclerosis of coronary artery [I25.10] 06/22/2022 Obesity, Class II, BMI 35-39.9 [E66.9] 10/03/2023 Encounter Status:Closed by AURELIANO KATE on 11/22/23 [facility] Rin 11-18-2023 AURA Telephone (AKURFL) CURTIS GUERRIER ([id number]) 1950 M Date Time Provider Department 11/18/23 CURTIS TINOCO AKRIO During your visit today, we recorded the following information about you: Ena Truong 11/18/2023 7:30 AM Signed [employer] has been scanned in. Ena DÍAZ Allergies As of Date: 11/18/2023 Noted Allergy Reaction IV CONTRAST (IODINE) 06/04/2019 18 - Angioedema Comments: IV contrast 06/01/2019 LIPITOR (ATORVASTATIN CALCIUM) 03/06/2007 Comments: myalgia LOVASTATIN 03/06/2007 Comments: myalgia [id number] REDUCTASE INHIBIT*04/05/2011 14 - Other: See Comments 17 - Myalgia Comments: sore joints and muscles Date Reviewed: 10/27/2023 Reviewed by: Elaina Amezcua APRN.PRODUCTION TEAM MANAGER - Fully Assessed Reason for Visit: Results [95] Prescriptions as of 11/18/2023 - furosemide (LASIX) 20 mg tablet Take 1 tablet by mouth once daily. - amLODIPine (NORVASC) 2.5 mg tablet Take 1 tablet by mouth once daily. Per Dr. Dietz - omeprazole (PRILOSEC) 20 mg capsule Take 1 capsule by mouth once daily. - losartan (COZAAR) 100 mg tablet Take 1 tablet by mouth once daily. - sildenafil (VIAGRA) 50 mg tablet Take 1 tablet by mouth as needed. - rosuvastatin (CRESTOR) 40 mg tablet Take 1 tablet by mouth daily at bedtime. - metoprolol tartrate, short acting, (LOPRESSOR) 50 mg tablet Take 1 tablet by mouth two times a day. - albuterol HFA (PROVENTIL HFA, VENTOLIN HFA) 90 mcg/actuation inhaler Inhale 2 Puffs as instructed every 6 hours as needed for wheezing/shortness of breath. - apixaban (ELIQUIS) 5 mg tab(s) Take 1 tablet by mouth twice daily. - acetaminophen (TYLENOL ORAL) Take by mouth as needed. - aspirin 81 mg chewable tablet Take 1 tablet by mouth once daily. - therapeutic multivitamin (THERA VITAMIN) tablet Take 1 tablet by mouth daily with breakfast. Meds Comments as of 11/08/2014: Advil as needed. Heather Odonnell Ma Problem List As Of Date 11/18/2023 Noted Resolved Essential hypertension, benign [I10] Sciatica [M54.30] 03/06/2007 12/04/2015 Anal fissure [K60.2] 11/04/2008 12/04/2015 Hearing loss [H91.90] 01/12/2010 Hematuria [R31.9] 05/23/2012 12/04/2015 Urinary frequency [R35.0] 05/23/2012 07/18/2018 Hypercalciuria [R82.994] 06/26/2012 Hyperlipidemia with target LDL less than 100 [E*04/17/2013 History of kidney stones [Z87.442] 06/18/2013 Elevated PSA [R97.20] 06/18/2013 11/11/2021 BPH (benign prostatic hypertrophy) with urinary*10/10/2013 Diverticulitis of colon [K57.32] 05/20/2014 07/18/2018 GERD (gastroesophageal reflux disease) [K21.9] 05/20/2014 Abdominal pain, acute, right upper quadrant [R1*11/08/2014 12/04/2015 Presence of drug coated stent in LAD coronary a*05/05/2015 Obesity (BMI 30-39.9) [E66.9] 10/15/2015 LLQ pain [R10.32] 11/20/2015 12/04/2015 Atherosclerosis of [place] coronary artery with *11/08/2016 05/04/2017 Lipid disorder [E78.9] 11/08/2016 Atelectasis [J98.11] 11/12/2016 07/18/2018 Postprocedural hypotension [I95.81] 11/12/2016 11/14/2016 Pain, postoperative, acute [G89.18] 11/12/2016 05/04/2017 Stress hyperglycemia [R73.9] 11/13/2016 11/15/2016 SUMMARY 11/15/2016 11/17/2022 Paroxysmal A-fib (HCC) [I48.0] 11/20/2016 05/04/2017 ASHD (arteriosclerotic heart disease) [I25.10] 05/04/2017 S/P CABG x 4 [Z95.1] 05/04/2017 Plantar fasciitis of right foot [M72.2] 12/02/2017 07/18/2018 Family history of prostate cancer [Z80.42] 07/18/2018 Osteoarthritis of spine with radiculopathy, cer*07/18/2018 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] 09/20/2019 11/17/2022 Lumbar radiculopathy [M54.16] 09/20/2019 Shoulder impingement syndrome, right [M75.41] 01/02/2020 11/17/2022 Shoulder impingement syndrome, left [M75.42] 01/02/2020 11/17/2022 Paroxysmal atrial fibrillation (HCC) [I48.0] 10/10/2020 Squamous cell skin cancer [C44.92] 05/13/2021 11/17/2022 History of squamous cell carcinoma [Z85.89] 11/17/2022 Preop testing [Z01.818] 09/08/2023 Arteriosclerosis of coronary artery [I25.10] 06/22/2022 Obesity, Class II, BMI 35-39.9 [E66.9] 10/03/2023 Encounter Status:Closed by ENA TRUONG on 11/18/23 Normal [facility] Chest without Contraston Chest without Contrast [facility] Imaging Services [address] [place], [place] [address] Chest without Contrast MR#: [id number] Acct: [id number] Name: FAREEDCURTIS BELINDA Rep #: [id number] : 1950 M 73 From: Romulo Cortes MD PCP: Dr. Jason Cook MD Status: REG CLI Study: Chest without Contrast Date of Exam: 11/10/23 Exam# [id number] Ordering Dr: Deangelo Strange MD :[id number] INDICATION: PARALYSIS VOCAL CHORDS EXAMINATION: CT CHEST WITHOUT CONTRAST - CT Chest W/O Contrast Injection TECHNIQUE: Helically acquired images were obtained of the chest. A radiation dose optimization technique was used for this scan. IV Contrast dosage and agent: None. COMPARISON: None. FINDINGS: Status post median sternotomy. LUNGS, PLEURA AND LARGE AIRWAYS: No masses, consolidation, or edema. Some linear scarring in the periphery of the left lung. No pleural effusion or thickening. Azygos lobe which is a normal variant. THYROID: No thyroid lesions. HEART AND PERICARDIUM: Heart size is normal. No pericardial effusion. CORONARY ARTERIES: Coronary artery calcification is seen. VESSELS: Thoracic aorta is not dilated. MEDIASTINUM AND KATHERINE: No mediastinal or hilar adenopathy. Esophagus is unremarkable. No hiatal hernia. UPPER ABDOMEN: Small calcified gallstone in the neck of the gallbladder consistent with cholelithiasis. BONES: No suspicious lytic or blastic abnormality. CT/Chest without Contrast IMPRESSION: Negative CT chest without contrast. Electronically Signed: Romulo Cortes MD at 12:43 EDT , CC: Dr. Deangelo Strange MD; Dr. Jason Cook MD 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 Service Operator: Signed Normal [facility] Soft Tissue Neck without Con scar 11-10-2023 Soft Tissue Neck without Contr [facility] Imaging Services [address] [place] [address] Soft Tissue Neck without Contr MR#: [id number] Acct: [id number] Name: CURTIS GUERRIER Rep #: [id number] : 1950 M 73 From: Romulo Cortes MD PCP: Dr. Jason Cook MD Status: REG CLI Study: Soft Tissue Neck without Contr Date of Exam: 0 11/10/23 Exam# [id number] Ordering Dr: Deangelo Strange MD :[id number] STUDY: CT SOFT TISSUE NECK WITHOUT CONTRAST REASON FOR EXAM: Male, 73 years old. PARALYSIS VOCAL CHORDS RADIATION DOSAGE (If Supplied By Facility): CTDIvol = ( 12.45 ) mGy, DLP = ( 369.82 ) mGycm TECHNIQUE: The patient was scanned in a multi-detector CT scanner. High resolution transaxial imaging was performed without the administration of intravenous contrast material. Sagittal and coronal images were reconstructed. Individualized dose optimization techniques were used for this CT. COMPARISON: None. FINDINGS: Normal bilateral parotid glands. Normal bilateral shoulder pad molder spaces. Normal bilateral parapharyngeal spaces. Normal bilateral carotid spaces. Normal bilateral sublingual and submandibular glands and spaces. Normal visualized nasopharynx. Normal retropharyngeal space. Normal perivertebral space. Normal visualized bilateral faucial tonsils. The visualized tongue, tongue base and oropharynx are normal. The visualized cervical lymph nodes (levels I-) are within normal size limits, and maintain normal morphology. There is no demonstrated solid or cystic mass lesion. Normal epiglottis, bilateral vallecula and hypopharynx. The pre-epiglottic and paraglottic adipose spaces are normal. Normal visualized bilateral piriform sinuses, aryepiglottic folds, vocal cords, and arytenoid-cricoid articulations. Normal subglottic trachea. Normal bilateral lobes of the thyroid gland. Normal visualized pulmonary apices. Normal visualized paranasal sinuses. There is multilevel degenerative changes of the cervical spine. CT/Soft Tissue Neck without Contr IMPRESSION: Normal unenhanced CT examination of the soft tissues of the neck. Electronically Signed: Romulo Cortes MD at 9:31 EDT , CC: Dr. Deangelo Strange MD; Dr. Jason Cook MD 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 Service Operator: Signed Normal [facility] Thyroidon 11-10-2023 Thyroid [facility] Imaging Services [address] [place], [place] [address] Thyroid MR#: [id number] Acct: [id number] Name: CURTIS GUERRIER Rep #: [id number] : 1950 M 73 From: Romulo Cortes MD PCP: Dr. Jason Cook MD Status: [facility] CLI Study: Thyroid Date of Exam: 11/10/23 Exam# [id number] Ordering Dr: Deangelo Strange MD :[id number] STUDY: THYROID ULTRASOUND REASON FOR EXAM: Male, 73 years old. PARALYSIS VOCAL CHORDS TECHNIQUE: Ultrasound evaluation of the thyroid was performed with real-time and static hernandez-scale imaging. COMPARISON: None. FINDINGS: RIGHT LOBE: The right lobe of the thyroid gland measures 4.2 x 1.4 x 1.7 cm. There is a homogeneous echotexture. There are no demonstrated solid, cystic or complex lesions. LEFT LOBE: The left lobe of the thyroid gland measures 4.4 x 1.2 x 2.0 cm. There is a homogeneous echotexture. There are no demonstrated solid, cystic or complex lesions. ISTHMUS: The isthmus measures 2 mm thick. . The regional lymph nodes are normal. US/Thyroid IMPRESSION: Normal ultrasound examination of the thyroid. Electronically Signed: Romulo Cortes MD at 9:16 EDT , CC: Dr. Deangelo Strange MD; Dr. Jason Cook MD 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 Service Operator: Signed Normal [facility] Basic metabolic 2000 panelon 11-03-2023 Anion gap [Moles/Vol] 10 mmol/L Normal 8-15 [facility] Comment on above: Order Comment: Speci men Type: BLOOD SPECIMENOrdering Facility: [facility] Address: [address] [place] [address] Performed By: #### 1 9123-9, 13346-2 ####[facility] [id number] [place] [address] [place] Calcium [Mass/Vol] 9.1 mg/dL Normal 8.5-10.2 [facility] Comment on above: Order Comment: Speci men Type: BLOOD SPECIMENOrdering Facility: [facility] Address: [address] [place] [address] Performed By: #### 1 9123-9, 59210-1 ####[facility] [id number] [place] [address] [place] Chloride [Moles/Vol] 102 mmol/L Normal 98-107 [facility] Comment on above: Order Comment: Speci men Type: BLOOD SPECIMENOrdering Facility: [facility] Address: [address] [place] [address] Performed By: #### 1 9123-9, 37079-3 ####[facility] [id number] [place] [id number] [place] CO2 [Moles/Vol] 26 mmol/L Normal 22-30 [facility] Comment on above: Order Comment: Speci men Type: BLOOD SPECIMENOrdering Facility: [facility] Address: [address] [place] [address] Performed By: #### 1 9123-9, 81758-6 ####[facility] [id number] [place] [id number] [place] Creatinine [Mass/Vol] 0.80 mg/dL Normal 0.73-1.22 [facility] Comment on above: Order Comment: Juan Antonio yu Type: BLOOD SPECIMENOrdering Facility: [facility] Address: [address] [place] [address] Performed By: #### 1 91239, 53133-0 ####[facility] [id number] [place] [address] [place] Creatinine and Glomerular filtration rate.predicted panel (S/P/Bld) 93 mL/min/1.73m??? Normal >=60 [facility] Comment on above: Order Comment: Juan Antonio yu Type: BLOOD SPECIMENOrdering Facility: [facility] Address: [address] [place] [address] Result Comment: Zully mated Glomerular Filtration Rate (eGFR) is calculated using the 2020 CKD-EPI creatinine equation. This equation utilizes serum creatinine, sex, and age as parameters. The creatinine assay has traceable calibration to isotope dilution-mass spectrometry. Refer to KDIGO guidelines for clinical interpretation. In patients with unstable renal function, e.g. those with acute kidney injury, the eGFR may not accurately reflect actual GFR. Performed By: #### 1 9123-9, 15936-0 ####[facility] [id number] [place] [address] [place] Glucose [Mass/Vol] 88 mg/dL Normal 74-99 [facility] Comment on above: Order Comment: Juan Antonio yu Type: BLOOD SPECIMENOrdering Facility: [facility] Address: [address] [place] [address] Result Comment: The [place] Diabetes Association (ADA) provides guidance for cutoff values for fasting glucose and random glucose. The ADA defines fasting as no caloric intake for at least 8 hours. Fasting plasma glucose results between 100 to 125 mg/dL indicate increased risk for diabetes (prediabetes). Fasting plasma glucose results greater than or equal to 126 mg/dL meet the criteria for diagnosis of diabetes. In the absence of unequivocal hyperglycemia, results should be confirmed by repeat testing. In a patient with classic symptoms of hyperglycemia or hyperglycemic crisis, random plasma glucose results greater than or equal to 200 mg/dL meet the criteria for diagnosis of diabetes. Reference: Standards of Medical Care in Diabetes 2016, [place] Diabetes Association. Diabetes Care. 2016.39(Suppl 1). Performed By: #### 1 9123-9, 26514-7 ####[facility] [id number] [place] [address] [place] Potassium [Moles/Vol] 4.2 mmol/L Normal 3.7-5.1 [facility] Comment on above: Order Comment: Speci men Type: BLOOD SPECIMENOrdering Facility: [facility] Address: [address] [place] [address] Performed By: #### 1 91239, 63246-6 ####[facility] [id number] [place] [id number] [place] Sodium [Moles/Vol] 138 mmol/L Normal 136-144 [facility] Comment on above: Order Comment: Speci men Type: BLOOD SPECIMENOrdering Facility: [facility] Address: [address] [place] [address] Performed By: #### 1 9123-9, 37647-8 ####[facility] [id number] [place] [address] [place] Urea nitrogen [Mass/Vol] 16 mg/dL Normal 9-24 [facility] Comment on above: Order Comment: Speci men Type: BLOOD SPECIMENOrdering Facility: [facility] Address: [address] [place] [address] Performed By: #### 1 9123-9, 92555-3 ####[facility] [id number] [place] [id number] [place] Magnesium SerPl-mCncon 11-02 Magnesium [Mass/Vol] 2.1 mg/dL Normal 1.7-2.3 [facility] Comment on above: Order Comment: Speci men Type: BLOOD SPECIMENOrdering Facility: [facility] Address: [address] [place] [address] Performed By: #### 1 9123-9, 19678-3 ####[facility] [id number] [place]ojelio DIANEDESK [id number] CNOVon 10-27-2023 CNOV Office Visit (FAMPWS ) CURTIS GUERRIER ([id number]) 1950 M Date Time Provider Department 10/27/23 2:00 PM [facility] During your visit today, we recorded the following information about you: Temperature Blood pressure Weight 98 degrees 140/60 96.6 kg Elaina Amezcua APRN.PRODUCTION TEAM MANAGER 10/27/2023 2:26 PM Signed This is a 73 year old male who presents today with: Patient presents with: Cellulitis: Follow up Throat Problem: Laryngitis for 11 days HISTORY OF PRESENT ILLNESS: Curtis Guerrier is a 73 year old male. Patient presents with: Cellulitis: Follow up Throat Problem: Laryngitis for 11 days [facility] 10/11/23 Cellulitis/Sepsis Seen twice in ER for swollen glands in right groin, loss of appetite. Some loss of bowel and bladder function. Had severe pain in right leg upon standing that lasted briefly with standing. Most of pain is better. Bowel and bladder function increased. Still, leg is swollen and blisters on lateral ankle. Using Aquaphor on ankle. Now has laryngitis for last 4 days. Right inner thigh aching. Discharged on amoxicillin and doxycycline Had an ultrasound of leg that ruled out DVT. Also, on DOAC. Right foot much better. Still some periods of diaphoresis. Right lateral ankle still a little tender Out of antibiotics since Tuesday. Finished week of furosemide. Some chills. Finished Zpak Also, worried about hoarseness for 11 days PAST MEDICAL HISTORY: PAST MEDICAL HISTORY 09/27/2017: Acute deep vein thrombosis (DVT) of right lower extremity (HCC) No date: Arthritis 10/10/2013: BPH (benign prostatic hypertrophy) with urinary obstruction No date: Calculus of kidney 2016: Coronary artery disease Comment: Stent ?1 No date: Diverticulitis No date: Essential hypertension, benign No date: GERD (gastroesophageal reflux disease) 2016: History of coronary artery stent placement 06/26/2012: Hypercalciuria No date: Hypercholesterolemia 04/17/2013: Hyperlipidemia LDL goal < 100 No date: Other and unspecified hyperlipidemia 2016: Prostatic hypertrophy Comment: benign with outflow obstruction 05/04/2017: S/P CABG x 4 Comment: October 2016 No date: Sciatica Comment: workers comp claim No date: Severe obesity with body mass index (BMI) of 35.0 to 35.9 and comorbidity ([facility]) No date: Snoring Comment: no JONAH 05/13/2021: Squamous cell skin cancer No date: Stroke ([facility]) Comment: patient denies diagnosis of stroke. Reports history of possible TIA PAST SURGICAL HISTORY No date: BACK SURGERY HX 10/2016: CABG (4) VEIN GRAFTS AND ARTERIAL GRAFT(S) No date: COLON SURGERY HX 05/28/2014: COLONOSCOPY Comment: Diverticular disease- repeat in 202402/12/2002: COLONOSCOPY FLX DX W/COLLJ SPEC WHEN PFRMD Comment: Colonoscopy-repeat in 04/26/2017: COLONOSCOPY FLX DX W/COLLJ SPEC WHEN PFRMD Comment: Colonoscopy 04/26/2017: ESOPHAGOGASTRODUODENOSCOPY TRANSORAL DIAGNOSTIC Comment: EGD No date: EYE SURGERY HX No date: FISSURECTOMY INCL SPHINCTEROTOMY WHEN PERFORMED No date: HEART SURGERY HX No date: HERNIA REPAIR HX 04/14/2016: LAPS COLECTOMY PRTL W/COLOPXTSTMY LW ANAST Comment: with mobilization of splenic flexure for diverticulitis 1983: PAST SURGICAL HISTORY OF Comment: lower back herniated disc 2006: PAST SURGICAL HISTORY OF Comment: low back surgery 04/04/2015: PAST SURGICAL HISTORY OF Comment: cardiac stent insertion 03/2016: PAST SURGICAL HISTORY OF Comment: colon resection 06/12/2020: REVISE MEDIAN N/CARPAL TUNNEL SURG; Bilateral Comment: Bilateral carpal tunnel release No date: RPR 1ST INGUN HRNA AGE 4 YRS/> REDUCIBLE Comment: Hernia repair, inguinal w/ mesh - right No date: TONSILLECTOMY PRIMARY/SECONDARY Comment: Tonsillectomy ALLERGIES Iv Contrast [Iodine], Lipitor [Atorvastatin Calcium], Lovastatin, and Bbzjksm-Bmv-Dxf Reductase Inhibitors MEDICATIONS Current Outpatient Medications Medication Sig furosemide (LASIX) 20 mg tablet Take 1 tablet by mouth once daily. amLODIPine (NORVASC) 2.5 mg tablet Take 1 tablet by mouth once daily. Per Dr. Dietz omeprazole (PRILOSEC) 20 mg capsule Take 1 capsule by mouth once daily. losartan (COZAAR) 100 mg tablet Take 1 tablet by mouth once daily. sildenafil (VIAGRA) 50 mg tablet Take 1 tablet by mouth as needed. rosuvastatin (CRESTOR) 40 mg tablet Take 1 tablet by mouth daily at bedtime. metoprolol tartrate, short acting, (LOPRESSOR) 50 mg tablet Take 1 tablet by mouth two times a day. albuterol HFA (PROVENTIL HFA, VENTOLIN HFA) 90 mcg/actuation inhaler Inhale 2 Puffs as instructed every 6 hours as needed for wheezing/shortness of breath. apixaban (ELIQUIS) 5 mg tab(s) Take 1 tablet by mouth twice daily. acetaminophen (TYLENOL ORAL) Take by mouth as needed. aspirin 81 mg chewable tablet Take 1 tablet by mouth once daily. therapeutic multivitamin (THERA VITAMIN) t (more content not included)... Normal [facility] CNOVon 10-20-2023 CNOV Office Visit (FAMPWS ) CURTIS GUERRIER ([id number]) 1950 M Date Time Provider Department 10/20/23 1:40 PM ELAINA AMEZCUA FAMPWS During your visit today, we recorded the following information about you: Temperature Pulse Blood pressure Weight 97.6 degrees 71/minute 130/58 97.5 kg Elaina Amezcua APRN.CNP 10/20/2023 2:23 PM Signed This is a 73 year old male who presents today with: Patient presents with: Hospital F/U: [facility] 10/11/23 Cellulitis/Sepsis HISTORY OF PRESENT ILLNESS: Curtis Guerrier is a 73 year old male. Patient presents with: Hospital F/U: [facility] 10/11/23 Cellulitis/Sepsis Seen twice in ER for swollen glands in right groin, loss of appetite. Some loss of bowel and bladder function. Had severe pain in right leg upon standing that lasted briefly with standing. Most of pain is better. Bowel and bladder function increased. Still, leg is swollen and blisters on lateral ankle. Using Aquaphor on ankle. Now has laryngitis for last 4 days. Right inner thigh aching. Discharged on amoxicillin and doxycycline Had an ultrasound of leg that ruled out DVT. Also, on DOAC. PAST MEDICAL HISTORY: PAST MEDICAL HISTORY Diagnosis Date Acute deep vein thrombosis (DVT) of right lower extremity (HCC) 09/27/2017 Arthritis BPH (benign prostatic hypertrophy) with urinary obstruction 10/10/2013 Calculus of kidney Coronary artery disease 2016 Stent ?1 Diverticulitis Essential hypertension, benign GERD (gastroesophageal reflux disease) History of coronary artery stent placement 2016 Hypercalciuria 06/26/2012 Hypercholesterolemia Hyperlipidemia LDL goal < 100 04/17/2013 Other and unspecified hyperlipidemia Prostatic hypertrophy 2016 benign with outflow obstruction S/P CABG x 4 05/04/2017 Sciatica workers comp claim Severe obesity with body mass index (BMI) of 35.0 to 35.9 and comorbidity (HCC) Snoring no JONAH Squamous cell skin cancer 05/13/2021 Stroke ([facility]) patient denies diagnosis of stroke. Reports history of possible TIA PAST SURGICAL HISTORY Procedure Laterality Date BACK SURGERY HX CABG (4) VEIN GRAFTS AND ARTERIAL GRAFT(S) 10/2016 COLON SURGERY HX COLONOSCOPY 05/28/2014 Diverticular disease- repeat in 2024 COLONOSCOPY FLX DX W/COLLJ SPEC WHEN PFRMD 02/12/2002 Colonoscopy-repeat in COLONOSCOPY FLX DX W/COLLJ SPEC WHEN PFRMD 04/26/2017 Colonoscopy ESOPHAGOGASTRODUODENOSCOPY TRANSORAL DIAGNOSTIC 04/26/2017 EGD EYE SURGERY HX FISSURECTOMY INCL SPHINCTEROTOMY WHEN PERFORMED HEART SURGERY HX HERNIA REPAIR HX LAPS COLECTOMY PRTL W/COLOPXTSTMY LW ANAST 04/14/2016 with mobilization of splenic flexure for diverticulitis PAST SURGICAL HISTORY OF 1982 lower back herniated disc PAST SURGICAL HISTORY OF 2005 low back surgery PAST SURGICAL HISTORY OF 04/04/2015 cardiac stent insertion PAST SURGICAL HISTORY OF 03/2016 colon resection REVISE MEDIAN N/CARPAL TUNNEL SURG Bilateral 06/12/2020 Bilateral carpal tunnel release RPR 1ST INGUN HRNA AGE 4 YRS/> REDUCIBLE Hernia repair, inguinal w/ mesh - right TONSILLECTOMY PRIMARY/SECONDARY Tonsillectomy ALLERGIES Iv Contrast [Iodine], Lipitor [Atorvastatin Calcium], Lovastatin, and Nrjstil-Ddb-Rli Reductase Inhibitors MEDICATIONS Current Outpatient Medications Medication Sig amLODIPine (NORVASC) 2.5 mg tablet Take 1 tablet by mouth once daily. Per Dr. Dietz omeprazole (PRILOSEC) 20 mg capsule Take 1 capsule by mouth once daily. losartan (COZAAR) 100 mg tablet Take 1 tablet by mouth once daily. sildenafil (VIAGRA) 50 mg tablet Take 1 tablet by mouth as needed. rosuvastatin (CRESTOR) 40 mg tablet Take 1 tablet by mouth daily at bedtime. metoprolol tartrate, short acting, (LOPRESSOR) 50 mg tablet Take 1 tablet by mouth two times a day. apixaban (ELIQUIS) 5 mg tab(s) Take 1 tablet by mouth twice daily. acetaminophen (TYLENOL ORAL) Take by mouth as needed. aspirin 81 mg chewable tablet Take 1 tablet by mouth once daily. therapeutic multivitamin (THERA VITAMIN) tablet Take 1 tablet by mouth daily with breakfast. albuterol HFA (PROVENTIL HFA, VENTOLIN HFA) 90 mcg/actuation inhaler Inhale 2 Puffs as instructed every 6 hours as needed for wheezing/shortness of breath. No current facility-administered medications for this visit. FAMILY HISTORY Problem Relation Age of Onset Heart Mother from CVA at age 75, CABG Hypertension Father Prostate Cancer Brother Coronary Artery Disease Brother stents other (pancreatic cancer) Sister Coronary Artery Disease Sister Coronary Artery Disease Sister Cancer Maternal Grandmother Parkinson?s Disease Maternal Grandfather Cancer Paternal Grandfather Social History Tobacco Use Smoking status: Former Types: Cigarettes Quit date: 06/18/1987 Years since quittin.3 Smokeless tobacco: Never Tobacco comments: (more content not included)... Normal [facility] CNOVon 10-17-2023 CNOV Office Visit (AKURFL ) CURTIS GUERRIER ([id number]) 1950 M Date Time Provider Department 10/17/23 1:45 PM CURTIS TINOCO AKRIO During your visit today, we recorded the following information about you: Pulse Height 68/minute 1.676 m Curtis Tinoco MD 10/17/2023 1:50 PM Signed ESTABLISHED PATIENT VISIT HPI Curtis Guerrier is a 73 year old male who presents post op ESWL Right ESWL 09/15/23 Follow up KUB 10/13/23 negative Serum calcium normal Recent RLE cellulitis IV abx , inpatient Creatinine Date Value Ref Range Status 09/26/2023 0.86 0.73 - 1.22 mg/dL Final PSA (ng/mL) Date Value 05/22/2019 1.42 08/22/2018 1.33 09/29/2017 1.48 09/29/2016 1.47 06/17/2015 2.14 07/09/2014 1.50 08/08/2013 1.67 06/18/2013 7.78 12/18/2012 2.71 04/19/2012 2.51 PSA Screening (ng/mL) Date Value 09/26/2023 1.41 11/09/2022 1.29 11/12/2021 1.26 10/11/2020 1.12 Color (no units) Date Value 07/18/2018 Yellow Clarity (no units) Date Value 07/18/2018 Clear Glucose, Urine (mg/dL) Date Value 07/18/2018 Negative Bilirubin, Urine (no units) Date Value 07/18/2018 Negative Ketones, Urine (no units) Date Value 07/18/2018 Negative Specific [place], Ur (no units) Date Value 07/18/2018 1.019 Hemoglobin/Blood,Ur ( ) Date Value 07/18/2018 Negative pH, Urine (no units) Date Value 07/18/2018 6.0 Protein, Urine (mg/dL) Date Value 07/18/2018 Negative Urobilinogen (no units) Date Value 07/18/2018 Normal Nitrites (no units) Date Value 07/18/2018 Negative Leukest (no units) Date Value 07/18/2018 2+ 24HR Urine Studies: No results for input(s): LUPH, LUCAL, LUCIT, LUOXA, LUURIC, LUVOL, LSCAO, LSCAP, LSURIC, LUCL, DUNIA, JASON, LUUREA, LUAM, LUMAG, LUPHOS, LUPCR, LUCREA, LUCRKBW, LUCAKBW, LUCACREA, LUCREACL, LWK, LUSUL in the last 36034 hours. REVIEW OF SYSTEMS Review of Systems Review of system, history including past medical history, surgical history, family history and social history reviewed and confirmed by me. HISTORIES PAST MEDICAL HISTORY Diagnosis Date Acute deep vein thrombosis (DVT) of right lower extremity (HCC) 09/27/2017 Arthritis BPH (benign prostatic hypertrophy) with urinary obstruction 10/10/2013 Calculus of kidney Coronary artery disease 2016 Stent ?1 Diverticulitis Essential hypertension, benign GERD (gastroesophageal reflux disease) History of coronary artery stent placement 2016 Hypercalciuria 06/26/2012 Hypercholesterolemia Hyperlipidemia LDL goal < 100 04/17/2013 Other and unspecified hyperlipidemia Prostatic hypertrophy 2016 benign with outflow obstruction S/P CABG x 4 05/04/2017 Sci[place] workers comp claim Severe obesity with body mass index (BMI) of 35.0 to 35.9 and comorbidity (HCC) Snoring no JONAH Squamous cell skin cancer 05/13/2021 Stroke ([facility]) patient denies diagnosis of stroke. Reports history of possible TIA PAST SURGICAL HISTORY Procedure Laterality Date BACK SURGERY HX CABG (4) VEIN GRAFTS AND ARTERIAL GRAFT(S) 10/2016 COLON SURGERY HX COLONOSCOPY 05/28/2014 Diverticular disease- repeat in 2024 COLONOSCOPY FLX DX W/COLLJ SPEC WHEN PFRMD 02/12/2002 Colonoscopy-repeat in COLONOSCOPY FLX DX W/COLLJ SPEC WHEN PFRMD 04/26/2017 Colonoscopy ESOPHAGOGASTRODUODENOSCOPY TRANSORAL DIAGNOSTIC 04/26/2017 EGD EYE SURGERY HX FISSURECTOMY INCL SPHINCTEROTOMY WHEN PERFORMED HEART SURGERY HX HERNIA REPAIR HX LAPS COLECTOMY PRTL W/COLOPXTSTMY LW ANAST 04/14/2016 with mobilization of splenic flexure for diverticulitis PAST SURGICAL HISTORY OF 1982 lower back herniated disc PAST SURGICAL HISTORY OF 2005 low back surgery PAST SURGICAL HISTORY OF 04/04/2015 cardiac stent insertion PAST SURGICAL HISTORY OF 03/2016 colon resection REVISE MEDIAN N/CARPAL TUNNEL SURG Bilateral 06/12/2020 Bilateral carpal tunnel release RPR 1ST INGUN HRNA AGE 4 YRS/> REDUCIBLE Hernia repair, inguinal w/ mesh - right TONSILLECTOMY PRIMARY/SECONDARY Tonsillectomy FAMILY HISTORY Problem Relation Age of Onset Heart Mother from CVA at age 75, CABG Hypertension Father Prostate Cancer Brother Coronary Artery Disease Brother stents other (pancreatic cancer) Sister Coronary Artery Disease Sister Coronary Artery Disease Sister Cancer Maternal Grandmother Parkinson?s Disease Maternal Grandfather Cancer Paternal Grandfather SOCIAL HISTORY Social History Tobacco Use Smoking status: Former Types: Cigarettes Quit date: 06/18/1987 Years since quittin.3 Smokeless tobacco: Never Tobacco comments: quit smoking 1987 Vaping Use Vaping Use: Never used Substance Use Topics Alcohol use: Yes Comment: 1glass of wine a day Drug use: No MEDICATIONS: amLODIPine (NORVASC) 2.5 mg tablet T (more content not included)... Normal [facility] UA DIP, URINE (POC)on 2023 BILIRUBIN UA (POCT) Negative Negative [facility] CLARITY UA (POCT) Clear [facility] COLOR UA (POCT) Yellow [place] GLUCOSE UA (POCT) Negative Negative mg/dL [place] Hemoglobin Ql (U) Negative Negative [facility] KETONE UA (POCT) Negative Negative mg/dL [place] LEUKOCYTES UA (POCT) Negative Negative [facility] NITRITE UA (POCT) Negative Negative [facility] PH UA (POCT) 6.0 4.5 - 8.0 [place] Protein Ql (U) Negative Negative mg/dL [place] SPECIFIC GRAVITY UA (POCT) 1.020 1.005 - 1.030 [place] UROBILINOGEN UA (POCT) 0.2 Normal E.U./dL [facility] Location:[facility], [address] [facility], [place], [place], [address] [facility] POINT OF CARE [place] Culture, Blood (WB)on 2023 CUB Blood cultures x2 fr om two different sites No growth in 5 days. Normal [facility] Comment on above: Performed By: #### L 503.6005 #### [facility] [place], [address] XR ABDOMEN 1V SUPINEon 10-12 XR ABDOMEN 1V SUPINE * * *Final Report* * * DATE OF EXAM: Oct 13 2023 2:02PM [id number] - XR ABDOMEN 1V SUPINE / PROCEDURE REASON: Kidney stone on right side * * * * Physician Interpretation * * * * EXAM TITLE: XR ABDOMEN 1V SUPINE EXAM DATE/TIME: 10/13/2023 2:02 PM COMPARISON: Abdomen x-ray on 09/15/2023 CLINICAL INDICATION/HISTORY: Kidney stone. TECHNIQUE: AP views of the abdomen are presented. FINDINGS: No definite abnormal radiopaque opacities projecting over the bilateral kidneys. Coarse calcifications seen in the inferior pelvis likely representing prostate calcifications. Hernia mesh overlying the right pelvis. No abnormally dilated bowel loops identified. The spine shows degenerative changes. IMPRESSION: No radiographic evidence of kidney stones. 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 Service Operator: BETH Transcribe Date/Time: Oct 13 2023 2:10P Dictated by : MACI STRONG MD This examination was interpreted and the report reviewed and electronically signed by: MACI STRONG MD on Oct 13 2023 2:13PM EST [id number] Normal [facility] XR Abdomen Supine and Uprigh ton 10-13-2023 IMPRESSION: No radio graphic evidence of kidney stones. 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 Service Operator: PSCB Transcribe Date/Time: Oct 13 2023 2:10P Dictated by : MACI STRONG MD This examination was interpreted and the report reviewed and electronically signed by: MACI STRONG MD on Oct 13 2023 2:13PM EST DIVISION OF RADIOLOGY * * *Final Report* * * DATE OF EXAM: Oct 13 2023 2:02PM [id number] - XR ABDOMEN 1V SUPINE / PROCEDURE REASON: Kidney stone on right side * * * * Physician Interpretation * * * * EXAM TITLE: XR ABDOMEN 1V SUPINE EXAM DATE/TIME: 10/13/2023 2:02 PM COMPARISON: Abdomen x-ray on 09/15/2023 CLINICAL INDICATION/HISTORY: Kidney stone. TECHNIQUE: AP views of the abdomen are presented. FINDINGS: No definite abnormal radiopaque opacities projecting over the bilateral kidneys. Coarse calcifications seen in the inferior pelvis likely representing prostate calcifications. Hernia mesh overlying the right pelvis. No abnormally dilated bowel loops identified. The spine shows degenerative changes. DIVISION OF RADIOLOGY Provider, [facility] - 10/13/2023 * * *Final Report* * * DATE OF EXAM: Oct 13 2023 2:02PM [id number] - XR ABDOMEN 1V SUPINE / PROCEDURE REASON: Kidney stone on right side * * * * Physician Interpretation * * * * EXAM TITLE: XR ABDOMEN 1V SUPINE EXAM DATE/TIME: 10/13/2023 2:02 PM COMPARISON: Abdomen x-ray on 09/15/2023 CLINICAL INDICATION/HISTORY: Kidney stone. TECHNIQUE: AP views of the abdomen are presented. FINDINGS: No definite abnormal radiopaque opacities projecting over the bilateral kidneys. Coarse calcifications seen in the inferior pelvis likely representing prostate calcifications. Hernia mesh overlying the right pelvis. No abnormally dilated bowel loops identified. The spine shows degenerative changes. IMPRESSION IMPRESSION: No radiographic evidence of kidney stones. 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 Service Operator: BETH Transcribe Date/Time: Oct 13 2023 2:10P Dictated by : MACI STRONG MD This examination was interpreted and the report reviewed and electronically signed by: MACI STRONG MD on Oct 13 2023 2:13PM EST [place] [facility] Study observation (narrative) [place] XR Abdomen Supine and Uprigh tOrdered By: [facility] Provider on 10-13-2023 [place] Basic Metabolic Profile (BMP )on 10-11-2023 BUN/CRE 16.1 RATIO Normal - [facility] Comment on above: Performed By: #### L 503.6005 #### [facility] [address] [place], [address] CA,Total 8.0 mg/dL Low 8.5-10.1 [facility] Comment on above: Performed By: #### L 503.6005 #### [facility] [address] [place], [address] Chloride [Moles/Vol] 105 mmol/L Normal 98-107 [facility] Comment on above: Performed By: #### L 503.6005 #### [facility] [address] [place], [address] CO2 [Moles/Vol] 29.0 mmol/L Normal 21.0-32.0 [facility] Comment on above: Performed By: #### L 503.6005 #### [facility] [address] [place], [address] Creatinine [Mass/Vol] 0.87 mg/dL Normal 0.70-1.30 [facility] Comment on above: Result Comment: The validity of the calculated GFR GFRAA in patients over 70 years has not been determined. Clinical correlation is essential. Performed By: #### L 503.6005 #### [facility] [address] [place], [address] ECRCL 81.21 ml/min Normal [facility] Comment on above: Performed By: #### L 503.6005 #### [facility] [address] [place], [address] EST GFR - AA 110 mL/min Normal >60 [facility] Comment on above: Result Comment: Afri can Singaporean GFR Calc Performed By: #### L 503.6005 #### [facility] [address] [place], [address] GAP 4 Low 5-15 [facility] Comment on above: Performed By: #### L 503.6005 #### [facility] [address] [place], [address] GFR/1.73 sq M.predicted among non-blacks MDRD (S/P/Bld) [Vol rate/Area] 91 mL/min/{1.73_m2} Normal >60 [facility] Comment on above: Result Comment: Non- GFR Calc Performed By: #### L 503.6005 #### [facility] [address] [place], [address] Glucose [Mass/Vol] 98 mg/dL Normal 74-106 [facility] Comment on above: Performed By: #### L 503.6005 #### [facility] [address] [place], [address] Potassium [Moles/Vol] 3.9 mmol/L Normal 3.5-5.1 [facility] Comment on above: Performed By: #### L 503.6005 #### [facility] [address] [place], [address] Sodium [Moles/Vol] 138 mmol/L Normal 136-145 [facility] Comment on above: Performed By: #### L 503.6005 #### [facility] [address] [place], [address] Urea nitrogen [Mass/Vol] 14 mg/dL Normal 7-18 [facility] Comment on above: Performed By: #### L 503.6005 #### [facility] [address] [place], [address] CBC W/Diff, Automatedon 09-25 Absolute Lymph 0.83 X10 3/uL Normal 0.83-4.51 [facility] Comment on above: Performed By: #### L 503.6005 #### [facility] [address] [place], [address] Absolute Neut 6.6 X10 3/uL Normal 2.0-7.7 [facility] Comment on above: Performed By: #### L 503.6005 #### [facility] [address] [place], [address] Basophils/100 WBC (Bld) 0.4 % Normal 0-1 [facility] Comment on above: Performed By: #### L 503.6005 #### [facility] [address] [place], [address] Eosinophils/100 WBC (Bld) 1.1 % Normal 0-5 [facility] Comment on above: Performed By: #### L 503.6005 #### [facility] [address] [place], [address] Erythrocyte distribution width (RBC) [Ratio] 13.5 % Normal 11.6-14.6 [facility] Comment on above: Performed By: #### L 503.6005 #### [facility] [address] [place], [address] Hematocrit (Bld) [Volume fraction] 37.3 % Low 40-54 [facility] Comment on above: Performed By: #### L 503.6005 #### [facility] [address] [place], [address] Hemoglobin (Bld) [Mass/Vol] 12.4 g/dL Low 13.0-16.5 [facility] Comment on above: Performed By: #### L 503.6005 #### [facility] [address] [place], [address] IG% 0.600 Normal 0.0-0.9 [facility] Comment on above: Result Comment: IG% - Immature Granulocytes (promyelocytes, myelocytes and metamyelocytes) > 1% indicates that a LEFT SHIFT is Present. Performed By: #### L 503.6005 #### [facility] [address] [place], [address] Lymphocytes/100 WBC (Bld) 10.2 % Low 19-41 [facility] Comment on above: Performed By: #### L 503.6005 #### [facility] [address] [place], [address] MCH (RBC) [Entitic mass] 32.2 pg High 27.0-32.0 [facility] Comment on above: Performed By: #### L 503.6005 #### [facility] [address] [place], [address] MCHC (RBC) [Mass/Vol] 33.2 g/dL Normal 32-36 [facility] Comment on above: Performed By: #### L 503.6005 #### [facility] [address] [place], [address] MCV (RBC) [Entitic vol] 96.9 fL High 80-94 [facility] Comment on above: Performed By: #### L 503.6005 #### [facility] [address] [place], [address] Monocytes/100 WBC (Bld) 7.3 % Normal 0-10 [facility] Comment on above: Performed By: #### L 503.6005 #### [facility] [address] [place], [address] Neutrophils/100 WBC (Bld) 80.4 % High 47-70 [facility] Comment on above: Performed By: #### L 503.6005 #### [facility] [address] [place], [address] Nucleated RBC (Bld) [#/Vol] 0 10*3/uL Normal 0-5 [facility] Comment on above: Performed By: #### L 503.6005 #### [facility] [address] [place], [address] Platelet mean volume (Bld) [Entitic vol] 10.6 fL Normal 6.2-12.0 [facility] Comment on above: Performed By: #### L 503.6005 #### [facility] [address] [place], [address] Platelets (Bld) [#/Vol] 151 10*3/uL Normal 150-450 [facility] Comment on above: Performed By: #### L 503.6005 #### [facility] [address] [place], [address] RBC (Bld) [#/Vol] 3.85 10*6/uL Low 4.6-6.2 [facility] Comment on above: Performed By: #### L 503.6005 #### [facility] [address] [place], [address] RDW SD 47.9 fl High 35.1-43.9 [facility] Comment on above: Performed By: #### L 503.6005 #### [facility] [address] [place], [address] WBC (Bld) [#/Vol] 8.2 10*3/uL Normal 4.4-11.0 [facility] Comment on above: Performed By: #### L 503.6005 #### [facility] [address] [place], [address] Vancomycin, Trough Levelon 0 10-11-2023 VANCO, TROUGH 9.1 ug/mL Normal 5.0-15.0 [facility] Comment on above: Order Comment: 0800 Result Comment: VANC OMYCIN STANDARED DRUG THERAPY TROUGH LEVEL: 5.0 - 15.0 mg/L VANCOMYCIN HIGH INTENSITY THERAPY TROUGH LEVEL: 15.0 - 20.0 mg/L High Intensity therapy recommended for serious life threatening infections include: - Meningitis -Endocarditis -Pneumonia (Ventilator/Healtcare Associated) -Sepsis PLEASE CONTACT PHARMACY SERVICES (#[id number]) FOR INTERPRETATION OF RESULTS. Performed By: #### L 501.8820 #### [facility] [address] [place], [address] Basic Metabolic Profile (BMP )on 10-10-2023 BUN/CRE 21.3 RATIO High 10-20 [facility] Comment on above: Performed By: #### L 503.6005, L100.0100, L500.4050 #### [facility] [address] [place], [address] CA,Total 8.0 mg/dL Low 8.5-10.1 [facility] Comment on above: Performed By: #### L 503.6005, L100.0100, L500.4050 #### [facility] [address] [place], [address] Chloride [Moles/Vol] 106 mmol/L Normal 98-107 [facility] Comment on above: Performed By: #### L 503.6005, L100.0100, L500.4050 #### [facility] [address] [place], [address] CO2 [Moles/Vol] 23.0 mmol/L Normal 21.0-32.0 [facility] Comment on above: Performed By: #### L 503.6005, L100.0100, L500.4050 #### [facility] [address] [place], [address] Creatinine [Mass/Vol] 0.89 mg/dL Normal 0.70-1.30 [facility] Comment on above: Result Comment: The validity of the calculated GFR GFRAA in patients over 70 years has not been determined. Clinical correlation is essential. Performed By: #### L 503.6005, L100.0100, L500.4050 #### [facility] [address] [place], [address] ECRCL 79.39 ml/min Normal [facility] Comment on above: Performed By: #### L 503.6005, L100.0100, L500.4050 #### [facility] [address] [place], [address] EST GFR - AA 107 mL/min Normal >60 [facility] Comment on above: Result Comment: Afri can [place]an GFR Calc Performed By: #### L 503.6005, L100.0100, L500.4050 #### [facility] [address] [place], [address] GAP 5 Normal 5-15 [facility] Comment on above: Performed By: #### L 503.6005, L100.0100, L500.4050 #### [facility] [address] [place], [address] GFR/1.73 sq M.predicted among non-blacks MDRD (S/P/Bld) [Vol rate/Area] 88 mL/min/{1.73_m2} Normal >60 [facility] Comment on above: Result Comment: Non- GFR Calc Performed By: #### L 503.6005, L100.0100, L500.4050 #### [facility] [address] [place], [address] Glucose [Mass/Vol] 95 mg/dL Normal 74-106 [facility] Comment on above: Performed By: #### L 503.6005, L100.0100, L500.4050 #### [facility] [address] [place], [address] Potassium [Moles/Vol] 3.9 mmol/L Normal 3.5-5.1 [facility] Comment on above: Performed By: #### L 503.6005, L100.0100, L500.4050 #### [facility] [address] [place], [address] Sodium [Moles/Vol] 134 mmol/L Low 136-145 [facility] Comment on above: Performed By: #### L 503.6005, L100.0100, L500.4050 #### [facility] [address] [place], [address] Urea nitrogen [Mass/Vol] 19 mg/dL High 7-18 [facility] Comment on above: Performed By: #### L 503.6005, L100.0100, L500.4050 #### [facility] [address] [place], [address] CBC W/Diff, Automatedon 07- PATH REV Reviewed Normal [facility] Comment on above: Result Comment: Neut rophilic leukocytosis with left shift. MACROCYTOSIS Clinical correlation necessary. Silas Montgomery M.D. 10/10/23 AMENDED REPORT 10/10/23 1516 PATH REV previously reported as: July Performed By: #### L 503.6005, L100.0100, L500.4050 #### [facility] [address] [place], [address] Absolute Lymph 0.67 X10 3/uL Low 0.83-4.51 [facility] Comment on above: Performed By: #### L 503.6005, L100.0100, L500.4050 #### [facility] [address] [place], [address] Absolute Neut 9.1 X10 3/uL High 2.0-7.7 [facility] Comment on above: Performed By: #### L 503.6005, L100.0100, L500.4050 #### [facility] [address] [place], [address] Basophils/100 WBC (Bld) 0.3 % Normal 0-1 [facility] Comment on above: Performed By: #### L 503.6005, L100.0100, L500.4050 #### [facility] [address] [place], [address] Eosinophils/100 WBC (Bld) 0.1 % Normal 0-5 [facility] Comment on above: Performed By: #### L 503.6005, L100.0100, L500.4050 #### [facility] [address] [place], [address] Erythrocyte distribution width (RBC) [Ratio] 13.3 % Normal 11.6-14.6 [facility] Comment on above: Performed By: #### L 503.6005, L100.0100, L500.4050 #### [facility] [address] [facility] [place], [address] Hematocrit (Bld) [Volume fraction] 39.0 % Low 40-54 [facility] Comment on above: Performed By: #### L 503.6005, L100.0100, L500.4050 #### [facility] [address] [facility] [place], [address] Hemoglobin (Bld) [Mass/Vol] 12.8 g/dL Low 13.0-16.5 [facility] Comment on above: Performed By: #### L 503.6005, L100.0100, L500.4050 #### [facility] [address] [facility] [place], [address] IG% 1.300 High 0.0-0.9 [facility] Comment on above: Result Comment: IG% - Immature Granulocytes (promyelocytes, myelocytes and metamyelocytes) > 1% indicates that a LEFT SHIFT is Present. Performed By: #### L 503.6005, L100.0100, L500.4050 #### [facility] [address] [facility] [place], [address] Lymphocytes/100 WBC (Bld) 6.5 % Low 19-41 [facility] Comment on above: Performed By: #### L 503.6005, L100.0100, L500.4050 #### [facility] [address] [facility] [place], [address] MCH (RBC) [Entitic mass] 32.0 pg Normal 27.0-32.0 [facility] Comment on above: Performed By: #### L 503.6005, L100.0100, L500.4050 #### [facility] [address] [place], [address] MCHC (RBC) [Mass/Vol] 32.8 g/dL Normal 32-36 [facility] Comment on above: Performed By: #### L 503.6005, L100.0100, L500.4050 #### [facility] [address] [place], [address] MCV (RBC) [Entitic vol] 97.5 fL High 80-94 [facility] Comment on above: Performed By: #### L 503.6005, L100.0100, L500.4050 #### [facility] [address] [place], [address] Monocytes/100 WBC (Bld) 3.4 % Normal 0-10 [facility] Comment on above: Performed By: #### L 503.6005, L100.0100, L500.4050 #### [facility] [address] [place], [address] Neutrophils/100 WBC (Bld) 88.4 % High 47-70 [facility] Comment on above: Performed By: #### L 503.6005, L100.0100, L500.4050 #### [facility] [address] [place], [address] Nucleated RBC (Bld) [#/Vol] 0 10*3/uL Normal 0-5 [facility] Comment on above: Performed By: #### L 503.6005, L100.0100, L500.4050 #### [facility] [address] [place], [address] Platelet mean volume (Bld) [Entitic vol] 10.3 fL Normal 6.2-12.0 [facility] Comment on above: Performed By: #### L 503.6005, L100.0100, L500.4050 #### [facility] [address] [place], [address] Platelets (Bld) [#/Vol] 133 10*3/uL Low 150-450 [facility] Comment on above: Performed By: #### L 503.6005, L100.0100, L500.4050 #### [facility] [address] [place], [address] RBC (Bld) [#/Vol] 4.00 10*6/uL Low 4.6-6.2 [facility] Comment on above: Performed By: #### L 503.6005, L100.0100, L500.4050 #### [facility] [address] [place], [address] RDW SD 48.1 fl High 35.1-43.9 [facility] Comment on above: Performed By: #### L 503.6005, L100.0100, L500.4050 #### [facility] [address] [place], [address] WBC (Bld) [#/Vol] 10.3 10*3/uL Normal 4.4-11.0 [facility] Comment on above: Performed By: #### L 503.6005, L100.0100, L500.4050 #### [facility] [address] [place], [address] [facility] 10-09-2023 Albumin [Mass/Vol] 2.9 g/dL Low 3.2-5.0 [facility] Comment on above: Performed By: #### L 503.6005, L100.0100, L500.4050 #### [facility] [address] [place], [address] Albumin/Globulin [Mass ratio] 0.9 {ratio} Normal 0.9-2.4 [facility] Comment on above: Performed By: #### L 503.6005, L100.0100, L500.4050 #### [facility] [address] [place], [address] ALK P 31 U/L Low 45-117 [facility] Comment on above: Performed By: #### L 503.6005, L100.0100, L500.4050 #### [facility] [address] [place], [address] ALT [Catalytic activity/Vol] 20 U/L Normal 16-61 [facility] Comment on above: Performed By: #### L 503.6005, L100.0100, L500.4050 #### [facility] [address] [place], [address] AST [Catalytic activity/Vol] 27 U/L Normal 15-37 [facility] Comment on above: Performed By: #### L 503.6005, L100.0100, L500.4050 #### [facility] [address] [place], [address] Bilirubin [Mass/Vol] 1.00 mg/dL Normal 0.20-1.00 [facility] Comment on above: Result Comment: For patients on eltrombopag therapy, use of Dimension Yarnell TBIL is not recommended. Performed By: #### L 503.6005, L100.0100, L500.4050 #### [facility] [address] [place], [address] BUN/CRE 20.0 RATIO Normal 10-20 [facility] Comment on above: Performed By: #### L 503.6005, L100.0100, L500.4050 #### [facility] [address] [place], [address] CA,Total 8.3 mg/dL Low 8.5-10.1 [facility] Comment on above: Performed By: #### L 503.6005, L100.0100, L500.4050 #### [facility] [address] [place], [address] Chloride [Moles/Vol] 101 mmol/L Normal 98-107 [facility] Comment on above: Performed By: #### L 503.6005, L100.0100, L500.4050 #### [facility] [address] [place], [address] CO2 [Moles/Vol] 26.0 mmol/L Normal 21.0-32.0 [facility] Comment on above: Performed By: #### L 503.6005, L100.0100, L500.4050 #### [facility] [address] [place], [address] Creatinine [Mass/Vol] 1.40 mg/dL High 0.70-1.30 [facility] Comment on above: Result Comment: The validity of the calculated GFR GFRAA in patients over 70 years has not been determined. Clinical correlation is essential. Performed By: #### L 503.6005, L100.0100, L500.4050 #### [facility] [address] [place], [address] ECRCL 51.99 ml/min Normal [facility] Comment on above: Performed By: #### L 503.6005, L100.0100, L500.4050 #### [facility] [address] [place], [address] EST GFR - AA 64 mL/min Normal >60 [facility] Comment on above: Result Comment: Afri can [place]an GFR Calc Performed By: #### L 503.6005, L100.0100, L500.4050 #### [facility] [address] [place], [address] GAP 6 Normal 5-15 [facility] Comment on above: Performed By: #### L 503.6005, L100.0100, L500.4050 #### [facility] [address] [place], [address] GFR/1.73 sq M.predicted among non-blacks MDRD (S/P/Bld) [Vol rate/Area] 53 mL/min/{1.73_m2} Low >60 [facility] Comment on above: Result Comment: Non- GFR Calc Performed By: #### L 503.6005, L100.0100, L500.4050 #### [facility] [address] [place], [address] Globulin (S) [Mass/Vol] 3.4 g/dL Normal 2.2-4.2 [facility] Comment on above: Performed By: #### L 503.6005, L100.0100, L500.4050 #### [facility] [address] [place], [address] Glucose [Mass/Vol] 137 mg/dL High 74-106 [facility] Comment on above: Result Comment: Fast ing Glucose result greater than or equal to 126 mg/dL suggests DIABETES MELLITUS per A.D.A. criteria. Performed By: #### L 503.6005, L100.0100, L500.4050 #### [facility] [address] [place], [address] Potassium [Moles/Vol] 4.0 mmol/L Normal 3.5-5.1 [facility] Comment on above: Performed By: #### L 503.6005, L100.0100, L500.4050 #### [facility] [address] [place], [address] Sodium [Moles/Vol] 133 mmol/L Low 136-145 [facility] Comment on above: Performed By: #### L 503.6005, L100.0100, L500.4050 #### [facility] [address] [place], [address] T PROT 6.3 g/dL Low 6.4-8.2 [facility] Comment on above: Performed By: #### L 503.6005, L100.0100, L500.4050 #### [facility] [address] [place], [address] Urea nitrogen [Mass/Vol] 28 mg/dL High 7-18 [facility] Comment on above: Performed By: #### L 503.6005, L100.0100, L500.4050 #### [facility] [address] [place], [address] Emergency Department Summary on 10-09-2023 Emergency Department Summary [facility] Medical Records Department [address] [place] [address] Emergency Department Summary 10/09/23 MR#: [id number] Acct: [id number] Name: CURTIS GUERRIER Rep #: [id number] : 1950 73 From: Francisco Colon MD PCP: Dr. Jason Cook MD Status:REG ER Location: ED HPI History of Present Illness Chief Complaint: Lower Extremity Injury Narrative Narrative: 33-year-old male past medical history of hypertension, coronary artery disease, hyperlipidemia presents with his partner because of pain and swelling of his right lower leg that he noticed yesterday morning. Of note, they state that they were seen in the emergency department because he was having nausea and vomiting. He had a CT of the abdomen and pelvis which did show right inguinal lymph nodes. He is supposed to follow-up with surgeon for biopsy because of the right inguinal lymphadenopathy. After they left in the morning, patient noticed increased swelling of the right lower extremity, and redness to his right lower leg. He denies any fevers or chills. He states that about the same time he thought he was having problems with bladder control in the sense that he is leaking urine. He states he still has a sensation to urinate, but when he gets to the bathroom, he is able to urinate, but then might dribble afterwards. He denies any saddle anesthesia, no midline back pain. [facility] Medical History Arthritis Carpal tunnel syndrome, bilateral Paroxysmal atrial fibrillation Diverticulitis Postoperative atrial fibrillation Essential hypertension Atherosclerotic heart disease of [place] coronary artery without angina pectoris Paroxysmal A-fib TIA (transient ischemic attack) CAD (coronary artery disease) GERD (gastroesophageal reflux disease) BPH (benign prostatic hyperplasia) Hyperlipidemia Hypertension Home Medications ???Medication ???Instructions ???Recorded ???Last Taken ???Type aspirin 81 mg chewable tablet 81 mg PO DAILY@0800 03/24/14 02/09/19 History multivitamin 1 tab PO DAILY 09/22/17 02/09/19 History metoprolol tartrate 50 mg tablet 50 mg PO BID 04/25/19 Unknown History acetaminophen 325 mg capsule 325 mg PO Q6H PRN Pain Or Fever 04/26/19 Unknown History (Tylenol) losartan 100 mg tablet 100 mg PO DAILY 04/26/19 Unknown History apixaban 5 mg tablet 5 mg PO BID #180 tabs 04/27/19 Unknown Rx albuterol sulfate 90 mcg/actuation 2 puff inhalation Q6H PRN PRN 11/22/20 Unknown History aerosol inhaler (ProAir HFA) Shortness Of Breath sildenafil 50 mg tablet (Viagra) 50 mg PO DAILY PRN sexual activity 02/26/21 Unknown History omeprazole 20 mg capsule,delayed 20 mg PO .3xw 12/10/21 Unknown History release rosuvastatin 10 mg tablet 40 mg PO QHS 03/11/23 Unknown History amlodipine 2.5 mg tablet 2.5 mg PO DAILY #90 tabs 07/04/23 Unknown Rx hydrocodone-acetaminophen 5-325mg 1 tab PO Q6H PRN PRN Pain 3 days 10/08/23 Unknown Rx 5mg-325mg #10 TABLETS ondansetron 4 mg disintegrating 4 mg PO Q8H PRN PRN Nausea #10 tabs 10/08/23 Unknown Rx tablet tamsulosin 0.4 mg capsule 0.4 mg PO QHS 10/08/23 Unknown History Allergy/AdvReac Type Severity Reaction Status Date / Time Iodinated Contrast Media (CT) Allergy Angioedema Verified 10/09/23 08:13 Ykmuxja-DNI-MgV Reductase AdvReac muscle pain Verified 10/09/23 08:13 Inhibitor (Qbogoht-Sxu-Tuz Reductase Inhibitor) Family History Mother CAD (coronary artery disease) CVA (cerebral vascular accident) History of coronary artery bypass surgery Father Hypertension Brother CAD (coronary artery disease) Presence of stent in coronary artery Sister CAD (coronary artery disease) Cancer Pancreatic Sister CAD (coronary artery disease) Surgical History History of squamous cell carcinoma excision History of lithotripsy ( 2019) History of colon resection History of tonsillectomy History of back surgery History of inguinal hernia repair History of placement of stent in LAD coronary artery ( 04/05/15) History of coronary artery bypass surgery ( 11/21/16) Hx of CABG Social History Smoking Status: Former smoker how long ago did patient quit smokin alcohol intake: current alcohol intake frequency: 0-2 drinks per day Alcohol type: wine details: 1 galls of wine daily substance use type: does not use caffeine: Yes Type: coffee Number of servings: 2 ROS ROS ED ROS Narrative Constitutional: No fever, no chills. HEENT: No sore throat. No neck pain. No loss of vision. No rhinorrhea. Cardiovascular: No chest pain. No palpitations. No pedal edema. Respiratory: No cough, no shortness of breath. A (more content not included)... Normal [facility] H AND P Exam - Hospital[facility] 10-09-2023 H&P Exam - Hospitalist [facility] Medical Records Department [address] [place] [id number] H P Exam - Hospitalist 10/09/23 1152 MR#: [id number] Acct: [id number] Name: CURTIS GUERRIER Rep #: [id number] : 1950 73 From: Dhaval Cantor DO PCP: Dr. Jason Cook MD Status:ADM IN Location: [facility] [id number] HPI - General General Date of Admission: 10/09/23 Date of Service: 10/09/23 Chief Complaint: leg swelling. HPI Narrative CURTIS GUERRIER, is a 73 M who presents with right leg swelling. Symptoms began yesterday and was seen in the emergency room early in the morning and was noted to have a lymph node. Emergency room physician reached out to Dr. Arteaga, general surgery. Plan is for patient to have a lymph node biopsy as outpatient but today, the patient had increased swelling and redness of his right lower extremity which led him to present here. Patient was diagnosed with cellulitis and received Unasyn. Patient has never had cellulitis before. Has been have some subjective chills and fever up to 101 Fahrenheit. Patient denies any recent injury, lacerations to his right leg. [facility] Medical History Arthritis Carpal tunnel syndrome, bilateral Paroxysmal atrial fibrillation Diverticulitis Postoperative atrial fibrillation Essential hypertension Atherosclerotic heart disease of [place] coronary artery without angina pectoris Paroxysmal A-fib TIA (transient ischemic attack) CAD (coronary artery disease) GERD (gastroesophageal reflux disease) BPH (benign prostatic hyperplasia) Hyperlipidemia Hypertension Home Medications ???Medication ???Instructions ???Recorded ???Last Taken ???Type aspirin 81 mg chewable tablet 81 mg PO DAILY@0800 03/24/14 02/09/19 History multivitamin 1 tab PO DAILY 09/22/17 02/09/19 History metoprolol tartrate 50 mg tablet 50 mg PO BID 04/25/19 Unknown History acetaminophen 325 mg capsule 325 mg PO Q6H PRN Pain Or Fever 04/26/19 Unknown History (Tylenol) losartan 100 mg tablet 100 mg PO DAILY 04/26/19 Unknown History apixaban 5 mg tablet 5 mg PO BID #180 tabs 04/27/19 Unknown Rx albuterol sulfate 90 mcg/actuation 2 puff inhalation Q6H PRN PRN 11/22/20 Unknown History aerosol inhaler (ProAir HFA) Shortness Of Breath sildenafil 50 mg tablet (Viagra) 50 mg PO DAILY PRN sexual activity 02/26/21 Unknown History omeprazole 20 mg capsule,delayed 20 mg PO .3xw 12/10/21 Unknown History release rosuvastatin 10 mg tablet 40 mg PO QHS 03/11/23 Unknown History amlodipine 2.5 mg tablet 2.5 mg PO DAILY #90 tabs 07/04/23 Unknown Rx hydrocodone-acetaminophen 5-325mg 1 tab PO Q6H PRN PRN Pain 3 days 10/08/23 Unknown Rx 5mg-325mg #10 TABLETS ondansetron 4 mg disintegrating 4 mg PO Q8H PRN PRN Nausea #10 tabs 10/08/23 Unknown Rx tablet tamsulosin 0.4 mg capsule 0.4 mg PO QHS 10/08/23 Unknown History Allergy/AdvReac Type Severity Reaction Status Date / Time Iodinated Contrast Media (CT) Allergy Angioedema Verified 10/09/23 08:13 Osczhry-RYS-PiT Reductase AdvReac muscle pain Verified 10/09/23 08:13 Inhibitor (Ehomlsz-Kqa-Ztd Reductase Inhibitor) Family History Mother CAD (coronary artery disease) CVA (cerebral vascular accident) History of coronary artery bypass surgery Father Hypertension Brother CAD (coronary artery disease) Presence of stent in coronary artery Sister CAD (coronary artery disease) Cancer Pancreatic Sister CAD (coronary artery disease) Surgical History History of squamous cell carcinoma excision History of lithotripsy ( 2019) History of colon resection History of tonsillectomy History of back surgery History of inguinal hernia repair History of placement of stent in LAD coronary artery ( 04/05/15) History of coronary artery bypass surgery ( 11/21/16) Hx of CABG Social History Smoking Status: Former smoker how long ago did patient quit smokin alcohol intake: current alcohol intake frequency: 0-2 drinks per day Alcohol type: wine details: 1 galls of wine daily substance use type: does not use caffeine: Yes Type: coffee Number of servings: 2 ROS ROS Narrative Recently has been having some urinary frequency and incomplete voiding. Normally has normal urinary stream and does not feel the need to urinate more after he is completed micturating. All review of systems were negative except as mentioned above in the history of present illness and the other review of systems. Vital Signs Vital Signs Vital Signs: 10/09/23 08:10 10/09/23 08:12 10/09/23 09:12 Temperature 36.6 C 36.3 C L 36.3 C L Temperature Source Temporal Temporal Temporal (more content not included)... Normal [facility] Lactic Acidon 07-14-2024 Lactate [Moles/Vol] 2.1 mmol/L Invalid Interpretation Code 0.4-1.9 [facility] Comment on above: Result Comment: Crit ical Result(s) Called at: 13:56:42 10/09/2023 by: Maryuri Acevedo to Mary Anne. Results read back by same. Performed By: #### L 503.6005 #### [facility] [address] [place], [address] Lactate [Moles/Vol] 2.6 mmol/L Invalid Interpretation Code 0.4-1.9 [facility] Comment on above: Order Comment: Y Result Comment: Crit ical Result(s) Called at: 09:25:31 10/09/2023 by: Maryuri Acevedo to Silvestre. Results read back by same. Performed By: #### L 503.6005, L100.0100, L500.4050 #### [facility] [address] [place], [address] Urinalysis, Completeon 10-08 BACTERIA 1+ /hpf Normal None Seen [facility] Comment on above: Order Comment: CLEAN CATCH Performed By: #### L 400.0001 #### [facility] [address] [place], [address] EPI,RENAL 0-5 SEEN Normal 0-5 [facility] Comment on above: Order Comment: CLEAN CATCH Performed By: #### L 400.0001 #### [facility] [address] [place], [address] RBC 0-5 SEEN Normal 0-5 [facility] Comment on above: Order Comment: CLEAN CATCH Performed By: #### L 400.0001 #### [facility] [address] [place], [address] WBC 5-10 SEEN Normal 0-5 [facility] Comment on above: Order Comment: CLEAN CATCH Performed By: #### L 400.0001 #### [facility] [address] [place], [address] EPI,SQUAMOUS 0 SEEN Normal 0-5 [facility] Comment on above: Order Comment: CLEAN CATCH Performed By: #### L 400.0001 #### [facility] [address] [place], [address] Mucus Ql (Urine sed) 0 SEEN Normal [facility] Comment on above: Order Comment: CLEAN CATCH Performed By: #### L 400.0001 #### [facility] [address] [place], [address] Venous Duplex US, Unilateral on 10-09-2023 Venous Duplex US, Unilateral [facility] [address] [place] [address] Venous Duplex US, Unilateral 10/09/23 1025 MR#: [id number] Acct: [id number] Name: CURTIS GUERRIER Rep #: [id number] : 1950 73 From: Dhaval Gaines MD Attending Dr: Dr. Dhaval Cantor, Status: ADM IN Ordering Dr: Francisco Colon MD Date: 10/09/23 Location: PCU Sex: M C Admitted: 10/09/23 Reason For Study: Pain RLE RIGHT LEFT GSV is normal. CFV is compressible, spontaneous, phasic, CFV is compressible, spontaneous, phasic, competent, and demonstrates normal competent and demonstrates normal augmentation. augmentation. FV is compressible, spontaneous, phasic, competent and demonstrates normal augmentation. POP V is compressible, spontaneous, phasic, competent and demonstrates normal augmentation. T/P Trunk is compressible. PTV is compressible. RT PerV is compressible. Lymph node noted Rt Groin measuring 3.59cm x 1.33cm. Procedure This is a venous duplex using B-mode, color flow and spectral Doppler. Exam performed portable in ED. A preliminary report was called and/or faxed to Dr. Colon. VL/Venous Duplex US, Unilateral Interpretation Summary Deep veins of the right lower extremity are patent and compressible segmentally. There is no evidence of right lower extremity deep vein thrombosis. The right great saphenous vein appears patent and compressible segmentally. Prominent right inguinal lymph node Ordering Physician: Francisco Colon Referring Physician: Jason Cook Performed By: Hortencia Johnson, XAVIERCS, RVT 10/10/23819 Date Dhaval Gaines MD CC: Dr. Francisco Colon MD; Dr. Dhaval Cantor DO; Dr. 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 Jason Cook MD Status: REG ER Study: Abdomen/Pelvis without Cont Date of Exam: 09/25 06/18 Exam# [id number] Ordering Dr: Catrachito Moreno DO :[id number] INDICATION: right flank pain COMPARISON: None. A radiation dose optimization technique was used for this scan. RADIATION DOSAGE (If Supplied By Facility): CTDIvol/DLP = ( 17.15 ) / ( 861.01 ) mGy/mGycm FINDINGS: Noncontrast serial CT axial images through the abdomen and pelvis with coronal and sagittal reformatted series. PANCREAS: No peripancreatic fat stranding. BOWEL/MESENTERY: No dilated bowel loops. No significant free fluid. No free air. Colonic diverticulosis without focus of diverticulitis. GALLBLADDER: Dependent cholelithiasis without pericholecystic fat stranding. LIVER/STOMACH: No obvious abnormality. URINARY COLLECTING SYSTEM/ KIDNEYS: No obstructing ureteral calculus. No significant renal parenchymal abnormality. ABDOMINAL WALL: There is hazy fat stranding of the right inguinal region with associated borderline adenopathy measuring up to 15 mm in the short axis. This hazy fat stranding tracks along the external iliac chain. In addition, there is adjacent right inguinal hernia mesh anchors although these are not associated with inflammatory change. APPENDIX: Normal caliber gas containing appendix. LUNG BASES: Unremarkable. BONES: Unremarkable for age. CT/Abdomen/Pelvis without Cont IMPRESSION: Hazy fat stranding of the right inguinal region with associated borderline adenopathy measuring up to 15 mm in the short axis. This hazy fat stranding tracks along the external iliac chain. This may represent postprocedure change from recent vascular access attempt or other inflammatory process, incompletely imaged. In addition, there is adjacent right inguinal hernia mesh anchors although these are not associated with inflammatory change. Electronically Signed: Greg Zhou MD at 4:00 EDT , CC: Dr. Catrachito Moreno DO; Dr. Jason Cook MD 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 Service Operator: Signed Normal [facility] CBC W/Diff, Automatedon 09-25 Absolute Lymph 1.49 X10 3/uL Normal 0.83-4.51 [facility] Comment on above: Performed By: #### L 503.6005 #### [facility] [address] [place], [address] Absolute Neut 9.0 X10 3/uL High 2.0-7.7 [facility] Comment on above: Performed By: #### L 503.6005 #### [facility] [address] [place], [address] Basophils/100 WBC (Bld) 0.3 % Normal 0-1 [facility] Comment on above: Performed By: #### L 503.6005 #### [facility] [address] [place], [address] Eosinophils/100 WBC (Bld) 1.0 % Normal 0-5 [facility] Comment on above: Performed By: #### L 503.6005 #### [facility] [address] [place], [address] Erythrocyte distribution width (RBC) [Ratio] 13.0 % Normal 11.6-14.6 [facility] Comment on above: Performed By: #### L 503.6005 #### [facility] [address] [place], [address] Hematocrit (Bld) [Volume fraction] 44.0 % Normal 40-54 [facility] Comment on above: Performed By: #### L 503.6005 #### [facility] [address] [place], [address] Hemoglobin (Bld) [Mass/Vol] 14.4 g/dL Normal 13.0-16.5 [facility] Comment on above: Performed By: #### L 503.6005 #### [facility] [address] [place], [address] IG% 0.400 Normal 0.0-0.9 [facility] Comment on above: Result Comment: IG% - Immature Granulocytes (promyelocytes, myelocytes and metamyelocytes) > 1% indicates that a LEFT SHIFT is Present. Performed By: #### L 503.6005 #### [facility] [address] [place], [address] Lymphocytes/100 WBC (Bld) 13.4 % Low 19-41 [facility] Comment on above: Performed By: #### L 503.6005 #### [facility] [address] [place], [address] MCH (RBC) [Entitic mass] 31.7 pg Normal 27.0-32.0 [facility] Comment on above: Performed By: #### L 503.6005 #### [facility] [address] [place], [address] MCHC (RBC) [Mass/Vol] 32.7 g/dL Normal 32-36 [facility] Comment on above: Performed By: #### L 503.6005 #### [facility] [address] [place], [address] MCV (RBC) [Entitic vol] 96.9 fL High 80-94 [facility] Comment on above: Performed By: #### L 503.6005 #### [facility] [address] [place], [address] Monocytes/100 WBC (Bld) 3.5 % Normal 0-10 [facility] Comment on above: Performed By: #### L 503.6005 #### [facility] [address] [place], [address] Neutrophils/100 WBC (Bld) 81.4 % High 47-70 [facility] Comment on above: Performed By: #### L 503.6005 #### [facility] [address] [place], [address] Nucleated RBC (Bld) [#/Vol] 0 10*3/uL Normal 0-5 [facility] Comment on above: Performed By: #### L 503.6005 #### [facility] [address] [place], [address] Platelet mean volume (Bld) [Entitic vol] 9.9 fL Normal 6.2-12.0 [facility] Comment on above: Performed By: #### L 503.6005 #### [facility] [address] [place], [address] Platelets (Bld) [#/Vol] 183 10*3/uL Normal 150-450 [facility] Comment on above: Performed By: #### L 503.6005 #### [facility] [address] [place], [address] RBC (Bld) [#/Vol] 4.54 10*6/uL Low 4.6-6.2 [facility] Comment on above: Performed By: #### L 503.6005 #### [facility] [address] [place], [address] RDW SD 46.6 fl High 35.1-43.9 [facility] Comment on above: Performed By: #### L 503.6005 #### [facility] [address] [place], [address] WBC (Bld) [#/Vol] 11.1 10*3/uL High 4.4-11.0 [facility] Comment on above: Performed By: #### L 503.6005 #### [facility] [address] [place], [address] [facility] 10-08-2023 Albumin [Mass/Vol] 3.5 g/dL Normal 3.2-5.0 [facility] Comment on above: Performed By: #### L 503.6005 #### [facility] [address] [place], [address] Albumin/Globulin [Mass ratio] 1.2 {ratio} Normal 0.9-2.4 [facility] Comment on above: Performed By: #### L 503.6005 #### [facility] [address] [place], [address] ALK P 54 U/L Normal 45-117 [facility] Comment on above: Performed By: #### L 503.6005 #### [facility] [address] [place], [address] ALT [Catalytic activity/Vol] 21 U/L Normal 16-61 [facility] Comment on above: Performed By: #### L 503.6005 #### [facility] [address] [place], [address] AST [Catalytic activity/Vol] 15 U/L Normal 15-37 [facility] Comment on above: Performed By: #### L 503.6005 #### [facility] [address] [place], [address] Bilirubin [Mass/Vol] 0.50 mg/dL Normal 0.20-1.00 [facility] Comment on above: Result Comment: For patients on eltrombopag therapy, use of Dimension Yarnell TBIL is not recommended. Performed By: #### L 503.6005 #### [facility] [address] [place], [address] BUN/CRE 19.1 RATIO Normal 10-20 [facility] Comment on above: Performed By: #### L 503.6005 #### [facility] [address] [place], [address] CA,Total 8.7 mg/dL Normal 8.5-10.1 [facility] Comment on above: Performed By: #### L 503.6005 #### [facility] [address] [place], [address] Chloride [Moles/Vol] 106 mmol/L Normal 98-107 [facility] Comment on above: Performed By: #### L 503.6005 #### [facility] [address] [place], [address] CO2 [Moles/Vol] 28.0 mmol/L Normal 21.0-32.0 [facility] Comment on above: Performed By: #### L 503.6005 #### [facility] [address] [place], [address] Creatinine [Mass/Vol] 0.99 mg/dL Normal 0.70-1.30 [facility] Comment on above: Result Comment: The validity of the calculated GFR GFRAA in patients over 70 years has not been determined. Clinical correlation is essential. Performed By: #### L 503.6005 #### [facility] [address] [place], [address] ECRCL 77.06 ml/min Normal [facility] Comment on above: Performed By: #### L 503.6005 #### [facility] [address] [place], [address] EST GFR - AA 95 mL/min Normal >60 [facility] Comment on above: Result Comment: Afri can [place] GFR Calc Performed By: #### L 503.6005 #### [facility] [address] [place], [address] GAP 5 Normal 5-15 [facility] Comment on above: Performed By: #### L 503.6005 #### [facility] [address] [place], [address] GFR/1.73 sq M.predicted among non-blacks MDRD (S/P/Bld) [Vol rate/Area] 78 mL/min/{1.73_m2} Normal >60 [facility] Comment on above: Result Comment: Non- GFR Calc Performed By: #### L 503.6005 #### [facility] [address] [place], [address] Globulin (S) [Mass/Vol] 3.0 g/dL Normal 2.2-4.2 [facility] Comment on above: Performed By: #### L 503.6005 #### [facility] [address] [place], [address] Glucose [Mass/Vol] 127 mg/dL High 74-106 [facility] Comment on above: Result Comment: Fast ing Glucose result greater than or equal to 126 mg/dL suggests DIABETES MELLITUS per A.D.A. criteria. Performed By: #### L 503.6005 #### [facility] [address] [place], [address] Potassium [Moles/Vol] 3.9 mmol/L Normal 3.5-5.1 [facility] Comment on above: Performed By: #### L 503.6005 #### [facility] [address] [place], [address] Sodium [Moles/Vol] 139 mmol/L Normal 136-145 [facility] Comment on above: Performed By: #### L 503.6005 #### [facility] [address] [place], [address] T PROT 6.5 g/dL Normal 6.4-8.2 [facility] Comment on above: Performed By: #### L 503.6005 #### [facility] [address] [place], [address] Urea nitrogen [Mass/Vol] 19 mg/dL High 7-18 [facility] Comment on above: Performed By: #### L 503.6005 #### [facility] [address] [place], [address] Emergency Department Summary on 10-08-2023 Emergency Department Summary [facility] Medical Records Department [address] [place] [address] Emergency Department Summary 10/08/23 MR#: [id number] Acct: [id number] Name: CURTIS GUERRIER Rep #: [id number] : 1950 73 From: Catrachito Moreno DO PCP: Dr. Jason Cook MD Status:REG ER Location: ED HPI HPI - GI History of Present Illness Chief Complaint: Abd Pain Narrative Narrative: 73 male presenting with nausea/vomiting. He states he does not have any pain associated with it. He ate some cod for dinner and he had some dressing on the side. He presents with his life partner who is also a male. He states he ate the fish to but he did not have the dressing. The patient has not had any diarrhea. No fevers or chills. [facility] Medical History Arthritis Carpal tunnel syndrome, bilateral Paroxysmal atrial fibrillation Diverticulitis Postoperative atrial fibrillation Essential hypertension Atherosclerotic heart disease of [place] coronary artery without angina pectoris Paroxysmal A-fib TIA (transient ischemic attack) CAD (coronary artery disease) GERD (gastroesophageal reflux disease) BPH (benign prostatic hyperplasia) Hyperlipidemia Hypertension Home Medications ???Medication ???Instructions ???Recorded ???Last Taken ???Type aspirin 81 mg chewable tablet 81 mg PO DAILY@0800 03/24/14 02/09/19 History multivitamin 1 tab PO DAILY 09/22/17 02/09/19 History metoprolol tartrate 50 mg tablet 50 mg PO BID 04/25/19 Unknown History acetaminophen 325 mg capsule 325 mg PO Q6H PRN Pain Or Fever 04/26/19 Unknown History (Tylenol) losartan 100 mg tablet 100 mg PO DAILY 04/26/19 Unknown History apixaban 5 mg tablet 5 mg PO BID #180 tabs 04/27/19 Unknown Rx albuterol sulfate 90 mcg/actuation 2 puff inhalation Q6H PRN PRN 11/22/20 Unknown History aerosol inhaler (ProAir HFA) Shortness Of Breath sildenafil 50 mg tablet (Viagra) 50 mg PO DAILY PRN sexual activity 02/26/21 Unknown History omeprazole 20 mg capsule,delayed 20 mg PO .3xw 12/10/21 Unknown History release rosuvastatin 10 mg tablet 40 mg PO QHS 03/11/23 Unknown History amlodipine 2.5 mg tablet 2.5 mg PO DAILY #90 tabs 07/04/23 Unknown Rx hydrocodone-acetaminophen 5-325mg 1 tab PO Q6H PRN PRN Pain 3 days 10/08/23 Unknown Rx 5mg-325mg #10 TABLETS ondansetron 4 mg disintegrating 4 mg PO Q8H PRN PRN Nausea #10 tabs 10/08/23 Unknown Rx tablet tamsulosin 0.4 mg capsule 0.4 mg PO QHS 10/08/23 Unknown History Allergy/AdvReac Type Severity Reaction Status Date / Time Iodinated Contrast Media (CT) Allergy Angioedema Verified 03/11/23 09:08 Nrrqxbg-ASC-AiM Reductase AdvReac muscle pain Verified 03/11/23 09:08 Inhibitor (Pxewgfg-Wlt-Vfk Reductase Inhibitor) Family History Mother CAD (coronary artery disease) CVA (cerebral vascular accident) History of coronary artery bypass surgery Father Hypertension Brother CAD (coronary artery disease) Presence of stent in coronary artery Sister CAD (coronary artery disease) Cancer Pancreatic Sister CAD (coronary artery disease) Surgical History History of squamous cell carcinoma excision History of lithotripsy ( 2019) History of colon resection History of tonsillectomy History of back surgery History of inguinal hernia repair History of placement of stent in LAD coronary artery ( 04/05/15) History of coronary artery bypass surgery ( 11/21/16) Hx of CABG Social History Smoking Status: Former smoker how long ago did patient quit smokin alcohol intake: current alcohol intake frequency: 0-2 drinks per day Alcohol type: wine details: 1 galls of wine daily substance use type: does not use caffeine: Yes Type: coffee Number of servings: 2 ROS ROS ED Constitutional Constitutional ED: Denies chills, fever(s) or sweats Eyes Eyes: Denies blurry vision or change in vision ENT ENT ED: Denies ear pain or sore throat Cardiovascular Cardiovascular: Denies chest pain, palpitations or racing heartbeat Respiratory/Chest Respiratory/Chest: Denies cough, dyspnea or sputum Gastrointestinal Gastrointestinal: Reports nausea and vomiting; Denies abdominal pain, constipation or diarrhea Genitourinary Genitourinary ED: Denies dysuria, hematuria or urinary frequency Musculoskeletal Musculoskeletal: Denies arthralgias, myalgias or neck pain Integumentary Denies abscess, Abrasions or rash Neurologic Neurologic: Denies headache(s), paresthesias or weakness Psychiatric Psychiatric: Denies anxiety, depression, suicidal ideation or suicidal thoughts Endocrine Endocrinology: Denies polydipsia or jorge l (more content not included)... Normal [facility] Lipaseon 10-08-2023 Lipase [Catalytic activity/Vol] 64 U/L Normal 13-75 [facility] Comment on above: Result Comment: Dong weinberg note: LIPASE revised reference range effective 22. New Lipase methodology. Expected to produce lower values than the previous assay method. NEW Reference Range: 13 - 75 U/L Performed By: #### L 503.6005 #### [facility] [address] [place], [address] Urinalysis, Completeon 10-07 RBC 0-5 SEEN Normal 0-5 [facility] Comment on above: Order Comment: CLEAN CATCH Performed By: #### L 400.0001 #### [facility] [address] [place], [address] BACTERIA 0 SEEN Normal None Seen [facility] Comment on above: Order Comment: CLEAN CATCH Performed By: #### L 400.0001 #### [facility] [address] [place], [address] EPI,SQUAMOUS 0 SEEN Normal 0-5 [facility] Comment on above: Order Comment: CLEAN CATCH Performed By: #### L 400.0001 #### [facility] [address] [place], [address] Mucus Ql (Urine sed) 0 SEEN Normal [facility] Comment on above: Order Comment: CLEAN CATCH Performed By: #### L 400.0001 #### [facility] [address] [place], [address] WBC 0 SEEN Normal 0-5 [facility] Comment on above: Order Comment: CLEAN CATCH Performed By: #### L 400.0001 #### [facility] [address] [place], [address] CNOVon 10-03-2023 CNOV Office Visit (CAWSTR ) CURTIS GUERRIER ([id number]) 1950 M Date Time Provider Department 10/03/23 2:00 PM JOSH LYNCH CAWSTR During your visit today, we recorded the following information about you: Pulse Blood pressure Weight Height 53/minute 156/72 100.4 kg 1.676 m Josh Lynch MD 10/03/2023 2:01 PM Signed Josh Lynch MD Interventional Cardiology [address] [place] [address] Chief Complaint Patient presents with: New Patient HISTORY OF PRESENT ILLNESS: Mr. Guerrier is a 73 year old male seen in my office today to establish care in our practice patient have established history of coronary artery disease which was diagnosed in 2017 presented with exertional dyspnea nuclear stress test was abnormal underwent bypass surgery for severe three-vessel coronary artery disease his bypass surgery consisted of a ADDISON to the LAD vein graft to the PDA vein graft to the ramus and vein graft to the diagonal Patient does have exertional dyspnea which she noticed lately he is on good medical therapy history of paroxysmal atrial fibrillation on anticoagulation Cardiac Risk Factors age (male over 45, female over 55), hyperlipidemia, obesity, diabetes, hypertension, family history of CAD PAST MEDICAL HISTORY Diagnosis Date Acute deep vein thrombosis (DVT) of right lower extremity (HCC) 09/27/2017 Arthritis BPH (benign prostatic hypertrophy) with urinary obstruction 10/10/2013 Calculus of kidney Coronary artery disease 2016 Stent ?1 Diverticulitis Essential hypertension, benign GERD (gastroesophageal reflux disease) History of coronary artery stent placement 2016 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 Reports history of possible TIA PAST SURGICAL HISTORY Procedure Laterality Date BACK SURGERY HX CABG (4) VEIN GRAFTS AND ARTERIAL GRAFT(S) 10/2016 COLON SURGERY HX COLONOSCOPY 05/28/2014 Diverticular disease- repeat in 2024 COLONOSCOPY FLX DX W/COLLJ SPEC WHEN PFRMD 02/12/2002 Colonoscopy-repeat in COLONOSCOPY FLX DX W/COLLJ SPEC WHEN PFRMD 04/26/2017 Colonoscopy ESOPHAGOGASTRODUODENOSCOPY TRANSORAL DIAGNOSTIC 04/26/2017 EGD EYE SURGERY HX FISSURECTOMY INCL SPHINCTEROTOMY WHEN PERFORMED HEART SURGERY HX HERNIA REPAIR HX LAPS COLECTOMY PRTL W/COLOPXTSTMY LW ANAST 04/14/2016 with mobilization of splenic flexure for diverticulitis PAST SURGICAL HISTORY OF 1982 lower back herniated disc PAST SURGICAL HISTORY OF 2005 low back surgery PAST SURGICAL HISTORY OF 04/04/2015 cardiac stent insertion PAST SURGICAL HISTORY OF 03/2016 colon resection REVISE MEDIAN N/CARPAL TUNNEL SURG Bilateral 06/12/2020 Bilateral carpal tunnel release RPR 1ST INGUN HRNA AGE 5 YRS/> REDUCIBLE Hernia repair, inguinal w/ mesh - right TONSILLECTOMY PRIMARY/SECONDARY Tonsillectomy FAMILY HISTORY Problem Relation Age of Onset Heart Mother from CVA at age 75, CABG Hypertension Father Prostate Cancer Brother Coronary Artery Disease Brother stents other (pancreatic cancer) Sister Coronary Artery Disease Sister Coronary Artery Disease Sister Cancer Maternal Grandmother Parkinson?s Disease Maternal Grandfather Cancer Paternal Grandfather Social History Tobacco Use Smoking status: Former Types: Cigarettes Quit date: 06/18/1987 Years since quittin.3 Smokeless tobacco: Never Tobacco comments: quit smoking 1987 Vaping Use Vaping Use: Never used Substance Use Topics Alcohol use: Yes Comment: 1glass of wine a day Drug use: No ALLERGIES Allergen Reactions Iv Contrast [Iodine] Angioedema IV contrast 06/01/2019 Lipitor [Atorvastat* myalgia Lovastatin myalgia Xxjbrnx-Gon-Ztr Red* Other: See Comments, Myalgia sore joints and muscles Medications: Current Outpatient Medications Medication Sig Dispense Refill tamsulosin (FLOMAX) 0.4 mg Take 1 capsule by mouth daily at bedtime. Patient should start on September 05, 2023. 30 capsule 2 omeprazole (PRILOSEC) 20 mg capsule Take 1 capsule by mouth once daily. 90 capsule 1 losartan (COZAAR) 100 mg tablet Take 1 tablet by mouth once daily. 90 tablet 3 sildenafil (VIAGRA) 50 mg tablet Take 1 tablet by mouth as needed. 30 tablet 5 rosuvastatin (CRESTOR) 40 mg tablet Take 1 tablet by mouth daily at bedtime. 90 tablet 3 metoprolol tartrate, short acting, (LOPRESSOR) 50 mg tablet Take 1 tablet by mouth two times a day. 180 tablet 3 apixaban (ELIQUIS) 5 mg tab (more content not included)... Normal [facility] BAL43ef 10-03-2023 ECG01 Ventricular Rate : 5 4 BPM Atrial Rate : 54 BPM P-R Interval : 206 ms QRS Duration : 106 ms Q-T Interval : 446 ms QTC Calculation(Bazett) : 422 ms Calculated P Hunker : 84 degrees Calculated R Hunker : -23 degrees Calculated T Hunker : 35 degrees SINUS BRADYCARDIA OTHERWISE NORMAL ECG Confirmed by BELINDA CORBIN DO ([id number]) on 10/04/2023 12:57:36 PM NAME : CURTIS GUERRIER PID : [id number] : 1950 Gender : Male Race : ORD : Procedure Date : Oct 03 2023 13:33:12 Edit Date : Oct 04 2023 12:57:37 Diagnosis: SINUS BRADYCARDIA OTHERWISE NORMAL ECG Confirmed by BELINDA CORBIN DO ([id number]) on 10/04/2023 12:57:36 PM Test Reason : Location : 136 : [facility] Overread By : BELINDA CORBIN DO Edited By : BELINDA CORBIN DO Referred By : JASON COOK Acquired by : Olive JOHN [facility] CBC W Auto Differential pane l (Bld)on 09-26-2023 Basophils (Bld) [#/Vol] 10*3/uL Normal <0.11 [facility] Comment on above: Order Comment: Speci men Type: BLOOD SPECIMENOrdering Facility: [facility] Address: [address] [place] [address] Performed By: #### 5 7021-8 ####[facility] [id number] [place] [address] [place] Basophils/100 WBC (Bld) 0.4 % Normal [facility] Comment on above: Order Comment: Speci men Type: BLOOD SPECIMENOrdering Facility: [facility] Address: [address] [place] [address] Performed By: #### 5 7021-8 ####[facility] MILLWNCLIA [id number] [place] [address] [place] Differential cell count method Nom (Bld) Auto Normal [facility] Comment on above: Order Comment: Speci men Type: BLOOD SPECIMENOrdering Facility: [facility] Address: [address] [place] [address] Performed By: #### 5 7021-8 ####[facility] MARYCONCHALIA [id number] [place] [address] [place] Eosinophils (Bld) [#/Vol] 0.12 10*3/uL Normal <0.46 [facility] Comment on above: Order Comment: Speci men Type: BLOOD SPECIMENOrdering Facility: [facility] Address: [address] [place] [address] Performed By: #### 5 7021-8 ####[facility] [id number] [place] [address] [place] Eosinophils/100 WBC (Bld) 2.2 % Normal [facility] Comment on above: Order Comment: Speci men Type: BLOOD SPECIMENOrdering Facility: [facility] Address: [address] [place] [address] Performed By: #### 5 7021-8 ####[facility] MARYCONCHALIA [id number] [place] [address] [place] Erythrocyte distribution width (RBC) [Ratio] 12.7 % Normal 11.5-15.0 [facility] Comment on above: Order Comment: Speci men Type: BLOOD SPECIMENOrdering Facility: [facility] Address: [address] [place] [address] Performed By: #### 5 7021-8 ####[facility] MARYNCLIA [id number] [place] [address] [place] Hematocrit (Bld) [Volume fraction] 43.4 % Normal 39.0-51.0 [facility] Comment on above: Order Comment: Speci men Type: BLOOD SPECIMENOrdering Facility: [facility] Address: [address] [place] [address] Performed By: #### 5 7021-8 ####[facility] [id number] [place] [address] [place] Hemoglobin (Bld) [Mass/Vol] 14.6 g/dL Normal 13.0-17.0 [facility] Comment on above: Order Comment: Speci men Type: BLOOD SPECIMENOrdering Facility: [facility] Address: [address] [place] [address] Performed By: #### 5 7021-8 ####[facility] [id number] [place] [address] [place] Immature granulocytes (Bld) [#/Vol] 10*3/uL Normal <0.10 [facility] Comment on above: Order Comment: Speci men Type: BLOOD SPECIMENOrdering Facility: [facility] Address: [address] [place] [address] Performed By: #### 5 7021-8 ####[facility] [id number] [place] [address] [place] Immature granulocytes/100 WBC (Bld) 0.2 % Normal [facility] Comment on above: Order Comment: Speci men Type: BLOOD SPECIMENOrdering Facility: [facility] Address: [address] [place] [address] Performed By: #### 5 7021-8 ####[facility] [id number] [place] [address] [place] Lymphocytes (Bld) [#/Vol] 1.72 10*3/uL Normal 1.00-4.00 [facility] Comment on above: Order Comment: Speci men Type: BLOOD SPECIMENOrdering Facility: [facility] Address: [address] [place] [address] Performed By: #### 5 7021-8 ####[facility] DEANCLAIRE [id number] [address] [place] Lymphocytes/100 WBC (Bld) 31.3 % Normal [facility] Comment on above: Order Comment: Speci men Type: BLOOD SPECIMENOrdering Facility: [facility] Address: [address] [place] [address] Performed By: #### 5 7021-8 ####[facility]NCJ[facility] [id number] [place] [address] [place] MCH (RBC) [Entitic mass] 32.0 pg Normal 26.0-34.0 [facility] Comment on above: Order Comment: Speci men Type: BLOOD SPECIMENOrdering Facility: [facility] Address: [address] [place] [address] Performed By: #### 5 7021-8 ####[facility] MARYNCManuel [id number] [place] [address] [place] MCHC (RBC) [Mass/Vol] 33.6 g/dL Normal 30.5-36.0 [facility] Comment on above: Order Comment: Speci men Type: BLOOD SPECIMENOrdering Facility: [facility] Address: [address] [place] [address] Performed By: #### 5 7021-8 ####[facility] MARYNCLIA [id number] [place] [address] [place] MCV (RBC) [Entitic vol] 95.2 fL Normal 80.0-100.0 [facility] Comment on above: Order Comment: Speci men Type: BLOOD SPECIMENOrdering Facility: [facility] Address: [address] [place] [address] Performed By: #### 5 7021-8 ####[facility] MILLWNCLIA [id number] [place] [address] [place] Monocytes (Bld) [#/Vol] 0.51 10*3/uL Normal <0.87 [facility] Comment on above: Order Comment: Speci men Type: BLOOD SPECIMENOrdering Facility: [facility] Address: [address] [place] [address] Performed By: #### 5 7021-8 ####[facility] [id number] [place] [address] [place] Monocytes/100 WBC (Bld) 9.3 % Normal [facility] Comment on above: Order Comment: Speci men Type: BLOOD SPECIMENOrdering Facility: [facility] Address: [address] [place] [address] Performed By: #### 5 7021-8 ####[facility] [id number] [place] [address] [place] Neutrophils (Bld) [#/Vol] 3.12 10*3/uL Normal 1.45-7.50 [facility] Comment on above: Order Comment: Speci men Type: BLOOD SPECIMENOrdering Facility: [facility] Address: [address] [place] [address] Performed By: #### 5 7021-8 ####[facility] [id number] [place] [address] [place] Neutrophils/100 WBC (Bld) 56.6 % Normal [facility] Comment on above: Order Comment: Speci men Type: BLOOD SPECIMENOrdering Facility: [facility] Address: [address] [place] [address] Performed By: #### 5 7021-8 ####[facility] [id number] [place] [address] [place] Nucleated RBC (Bld) [#/Vol] 10*3/uL Normal <0.01 [facility] Comment on above: Order Comment: Speci men Type: BLOOD SPECIMENOrdering Facility: [facility] Address: [address] [place] [address] Performed By: #### 5 7021-8 ####[facility] BEACHA [id number] [place] [address] [place] Nucleated RBC/100 WBC (Bld) [Ratio] 0.0 /100 WBC Normal [facility] Comment on above: Order Comment: Speci men Type: BLOOD SPECIMENOrdering Facility: [facility] Address: [address] [place] [address] Performed By: #### 5 7021-8 ####[facility] [id number] [place] [address] [place] Platelet mean volume (Bld) [Entitic vol] 9.8 fL Normal 9.0-12.7 [facility] Comment on above: Order Comment: Speci men Type: BLOOD SPECIMENOrdering Facility: [facility] Address: [address] [place] [address] Performed By: #### 5 7021-8 ####[facility] [id number] [place] [address] [place] Platelets (Bld) [#/Vol] 195 10*3/uL Normal 150-400 [facility] Comment on above: Order Comment: Speci men Type: BLOOD SPECIMENOrdering Facility: [facility] Address: [address] [place] [address] Performed By: #### 5 7021-8 ####[facility] [id number] [place] [address] [place] RBC (Bld) [#/Vol] 4.56 10*6/uL Normal 4.20-6.00 [facility] Comment on above: Order Comment: Speci men Type: BLOOD SPECIMENOrdering Facility: [facility] Address: [address] [place], [place] [address] Performed By: #### 5 7021-8 ####[facility] DEANWNCLIA [id number] [place] [address] [place] WBC (Bld) [#/Vol] 5.50 10*3/uL Normal 3.70-11.00 [facility] Comment on above: Order Comment: Speci men Type: BLOOD SPECIMENOrdering Facility: [facility] Address: [address] [place] [address] Performed By: #### 5 7021-8 ####[facility] MARYNCSTEVENSONA [id number] [place] [address] [place] [address] [facility] Comprehensive metabolic 2000 panelon 09-26-2023 Albumin [Mass/Vol] 4.1 g/dL Normal 3.9-4.9 [facility] Comment on above: Order Comment: Speci men Type: BLOOD SPECIMENOrdering Facility: [facility] Address: [address] [place] [address] Performed By: #### 2 4323-8 ####[facility] MARYNCLIA [id number] [place] [address] [place] ALP [Catalytic activity/Vol] 51 U/L Normal 38-113 [facility] Comment on above: Order Comment: Speci men Type: BLOOD SPECIMENOrdering Facility: [facility] Address: [address] [place] [address] Performed By: #### 2 4323-8 ####[facility] MARYNCLIA [id number] [place] [address] [place] ALT [Catalytic activity/Vol] 13 U/L Normal 10-54 [facility] Comment on above: Order Comment: Speci men Type: BLOOD SPECIMENOrdering Facility: [facility] Address: [address] [place] [address] Performed By: #### 2 4323-8 ####[facility] ROSANA MILLTOWNCLIA [id number] [place] [address] [place] Anion gap [Moles/Vol] 10 mmol/L Normal 8-15 [facility] Comment on above: Order Comment: Speci men Type: BLOOD SPECIMENOrdering Facility: [facility] Address: [address] [place] [address] Performed By: #### 2 4323-8 ####[facility] MILLTOWNCLIA [id number] [place] [address] [place] AST [Catalytic activity/Vol] 17 U/L Normal 14-40 [facility] Comment on above: Order Comment: Speci men Type: BLOOD SPECIMENOrdering Facility: [facility] Address: [address] [place] [address] Performed By: #### 2 4323-8 ####[facility]CL[facility] [id number] [place] [address] [place] Bilirubin [Mass/Vol] 0.8 mg/dL Normal 0.2-1.3 [facility] Comment on above: Order Comment: Speci men Type: BLOOD SPECIMENOrdering Facility: [facility] Address: [address] [place] [address] Performed By: #### 2 4323-8 ####[facility] MILLTOWNCLIA [id number] [place] [address] [place] Calcium [Mass/Vol] 8.9 mg/dL Normal 8.5-10.2 [facility] Comment on above: Order Comment: Speci men Type: BLOOD SPECIMENOrdering Facility: [facility] Address: [address] [place] [address] Performed By: #### 2 4323-8 ####[facility] MILLWNCLIA [id number] [place] [address] [place] Chloride [Moles/Vol] 104 mmol/L Normal 98-107 [facility] Comment on above: Order Comment: Speci men Type: BLOOD SPECIMENOrdering Facility: [facility] Address: [address] [place] [address] Performed By: #### 2 4323-8 ####[facility] [id number] [place] [address] [place] CO2 [Moles/Vol] 22 mmol/L Normal 22-30 [facility] Comment on above: Order Comment: Speci men Type: BLOOD SPECIMENOrdering Facility: [facility] Address: [address] [place] [address] Performed By: #### 2 4323-8 ####[facility] [id number] [place] [address] [place] Creatinine [Mass/Vol] 0.86 mg/dL Normal 0.73-1.22 [facility] Comment on above: Order Comment: Speci men Type: BLOOD SPECIMENOrdering Facility: [facility] Address: [address] [place] [address] Performed By: #### 2 4323-8 ####[facility] [id number] [place] [address] [place] [facility] [place] Creatinine and Glomerular filtration rate.predicted panel (S/P/Bld) 91 mL/min/1.73m??? Normal >=60 [facility] Comment on above: Order Comment: Speci men Type: BLOOD SPECIMENOrdering Facility: [facility] Address: [address] [place] [address] Result Comment: Zully mated Glomerular Filtration Rate (eGFR) is calculated using the 2020 CKD-EPI creatinine equation. This equation utilizes serum creatinine, sex, and age as parameters. The creatinine assay has traceable calibration to isotope dilution-mass spectrometry. Refer to KDIGO guidelines for clinical interpretation. In patients with unstable renal function, e.g. those with acute kidney injury, the eGFR may not accurately reflect actual GFR. Performed By: #### 2 4323-8 ####[facility] DEANREEDS SPRINGNCLI [id number] [place] [address] [place] Glucose [Mass/Vol] 101 mg/dL High 74-99 [facility] Comment on above: Order Comment: Speci men Type: BLOOD SPECIMENOrdering Facility: [facility] Address: [address] [place], [place] [address] Result Comment: The [place] [employer] (ADA) provides guidance for cutoff values for fasting glucose and random glucose. The ADA defines fasting as no caloric intake for at least 8 hours. Fasting plasma glucose results between 100 to 125 mg/dL indicate increased risk for diabetes (prediabetes). Fasting plasma glucose results greater than or equal to 126 mg/dL meet the criteria for diagnosis of diabetes. In the absence of unequivocal hyperglycemia, results should be confirmed by repeat testing. In a patient with classic symptoms of hyperglycemia or hyperglycemic crisis, random plasma glucose results greater than or equal to 200 mg/dL meet the criteria for diagnosis of diabetes. Reference: Standards of Medical Care in Diabetes 2016, [place] [employer]. Diabetes Care. 2016.39(Suppl 1). Performed By: #### 2 4323-8 ####[facility] [id number] [place] [address] [place] Potassium [Moles/Vol] 4.4 mmol/L Normal 3.7-5.1 [facility] Comment on above: Order Comment: Speci men Type: BLOOD SPECIMENOrdering Facility: [facility] Address: [address] [place] [address] Performed By: #### 2 4323-8 ####[facility] [id number] [place] [address] [place] Protein [Mass/Vol] 6.3 g/dL Normal 6.3-8.0 [facility] Comment on above: Order Comment: Speci men Type: BLOOD SPECIMENOrdering Facility: [facility] Address: [address] [place] [address] Performed By: #### 2 4323-8 ####[facility] [id number] [place] [address] [place] Sodium [Moles/Vol] 136 mmol/L Normal 136-144 [facility] Comment on above: Order Comment: Speci men Type: BLOOD SPECIMENOrdering Facility: [facility] Address: [address] [place] [address] Performed By: #### 2 4323-8 ####[facility] [id number] [place] [address] [place] Urea nitrogen [Mass/Vol] 17 mg/dL Normal 9-24 [facility] Comment on above: Order Comment: Speci men Type: BLOOD SPECIMENOrdering Facility: [facility] Address: [address] [place] [address] Performed By: #### 2 4323-8 ####[facility] [id number] [place] [address] [place] Lipid 1996 panelon 4 Cholesterol [Mass/Vol] 179 mg/dL Normal <200 [facility] Comment on above: Order Comment: Speci men Type: BLOOD SPECIMENOrdering Facility: [facility] Address: [address] [place] [address] Result Comment: <200 mg/dL, Desirable 200-239 mg/dL, Borderline high >239 mg/dL, High Performed By: #### 2 4331-1 ####[facility] [id number] [facility] [id number] [place] [address] [place] [facility] [id number] [place] [address] [place] Cholesterol in HDL [Mass/Vol] 50 mg/dL Normal >39 [facility] Comment on above: Order Comment: Speci men Type: BLOOD SPECIMENOrdering Facility: [facility] Address: [address] [place] [address] Result Comment: 40-5 9 mg/dL, Acceptable >59 mg/dL, High: Negative risk factor for coronary heart disease <40 mg/dL, Low: Positive risk factor for coronary heart disease Performed By: #### 2 4331-1 ####[facility] [id number] [address] [id number] [place] [address] [place] Cholesterol in LDL [Mass/Vol] 94 mg/dL Normal <100 [facility] Comment on above: Order Comment: Speci men Type: BLOOD SPECIMENOrdering Facility: [facility] Address: [address] [place] [address] Result Comment: <100 mg/dL, Optimal 100-129 mg/dL, Near optimal/above optimal 130-159 mg/dL, Borderline high 160-189 mg/dL, High >189 mg/dL, Very high Secondary prevention optimal LDL Cholesterol levels are recommended to be < 70 mg/dL Performed By: #### 2 4331-1 ####[facility] [id number] [address] [id number] [place] [address] [place] Cholesterol in LDL/Cholesterol in HDL [Mass ratio] 1.88 {ratio} Normal <2.54 [facility] Comment on above: Order Comment: Speci men Type: BLOOD SPECIMENOrdering Facility: [facility] Address: [address] [place] [address] Result Comment: Shannon romero: 1. National Cholesterol Education Program ATP III Guideline At-A-Glance Quick Desk Reference: National Heart, Lung, and Blood Albers. National Institutes of Health. 2001: NIH Publication No. 01-3305. 2. An International Atherosclerosis Society position paper: global recommendations for the management of dyslipidemia: executive summary, Atherosclerosis. 2014: 232(2):410-413. Performed By: #### 2 4331-1 ####[facility] [id number] [address] [id number] [place] [address] [place] Cholesterol in VLDL [Mass/Vol] 35 mg/dL High <30 [facility] Comment on above: Order Comment: Speci men Type: BLOOD SPECIMENOrdering Facility: [facility] Address: [address] [place] [address] Performed By: #### 2 4331-1 ####[facility] [id number] [address] [id number] [place] [address] [place] Cholesterol non HDL [Mass/Vol] 129 mg/dL Normal <130 [facility] Comment on above: Order Comment: Speci men Type: BLOOD SPECIMENOrdering Facility: [facility] Address: [address] [place] [address] Result Comment: <130 mg/dL, Optimal 130-159 mg/dL, Near optimal/above optimal 160-189 mg/dL, Borderline high 190-219 mg/dL, High >219 mg/dL, Very high Secondary prevention optimal non HDL Cholesterol levels are recommended to be <100 mg/dL Performed By: #### 2 4331-1 ####[facility] [id number] [place] [id number] [facility] [id number] [place] [address] [place] Cholesterol.total/Ch olesterol in HDL [Mass ratio] 3.58 {ratio} Normal <5.10 [facility] Comment on above: Order Comment: Speci men Type: BLOOD SPECIMENOrdering Facility: [facility] Address: [address] [place] [address] Performed By: #### 2 4331-1 ####[facility] [id number] [address] [id number] [place] [address] [place] FASTING TIME 12 hrs Normal [facility] Comment on above: Order Comment: Speci men Type: BLOOD SPECIMENOrdering Facility: [facility] Address: [address] [place] [address] Performed By: #### 2 4331-1 ####[facility] [id number] [address] [id number] [place] [address] [place] Triglyceride [Mass/Vol] 173 mg/dL High <150 [facility] Comment on above: Order Comment: Speci men Type: BLOOD SPECIMENOrdering Facility: [facility] Address: [address] [place] [address] Result Comment: <150 mg/dL, Normal 150-199 mg/dL, Borderline high 200-499 mg/dL, High >499 mg/dL, Very high Performed By: #### 2 4331-1 ####[facility] [id number] [address] [id number] [place] [address] [place] PSA/PROSTATE SPECIFIC ANTIGE N SCREENINGon 09-26-2023 Prostate specific Ag [Mass/Vol] 1.41 ng/mL Normal <2.60 [facility] Comment on above: Order Comment: Speci men Type: BLOOD SPECIMENOrdering Facility: [facility] Address: [address] [place] [address] Result Comment: Tota l PSA test methodology used is the Electrochemiluminescence Immunoassay by [employer]. Total PSA values by differing methodologies cannot be interchanged. Performed By: #### P SAS1 ####[facility] [id number] [address] [place] Rin 09-16-2023 CNPN Telephone (AKURFL) CURTIS GUERRIER ([id number]) 1950 M Date Time Provider Department 09/16/23 CURTIS TINOCO During your visit today, we recorded the following information about you: Curtis Tinoco MD 09/16/2023 7:44 AM Signed Patient had ESWL yesterday. He needs a KUB in 4 to 6 weeks. He can follow-up with provider in [place] or sooner if needed here Ena Truong 09/16/2023 9:50 AM Signed Spoke to pt and he is scheduled and aware to get kub prior. He insisted on seeing Dr. Tinoco. Ena DÍAZ Allergies As of Date: 09/16/2023 Noted Allergy Reaction IV CONTRAST (IODINE) 06/04/2019 18 - Angioedema Comments: IV contrast 06/01/2019 LIPITOR (ATORVASTATIN CALCIUM) 03/06/2007 Comments: myalgia LOVASTATIN 03/06/2007 Comments: myalgia [id number] REDUCTASE INHIBIT*04/05/2011 14 - Other: See Comments 17 - Myalgia Comments: sore joints and muscles Date Reviewed: 09/15/2023 Reviewed by: Enedina Andrade RN - Fully Assessed Reason for Visit: Appointment [186] Primary Visit Diagnosis:Kidney stone on right side [N20.0] Order(s):XR ABDOMEN 1V SUPINE [[id number]] Order #: [id number] FUTURE Prescriptions as of 09/16/2023 - oxyCODONE-acetaminophen (PERCOCET) 5-325 mg tablet Take 1 tablet by mouth every 8 hours as needed for up to 5 days. - senna-docusate (SENOKOT-S) 8.6-50 mg per tablet Take 2 tablets by mouth two times a day for 5 days. - cephALEXin (KEFLEX) 500 mg capsule Take 1 capsule by mouth three times a day for 7 days. - tamsulosin (FLOMAX) 0.4 mg Take 1 capsule by mouth daily at bedtime. Patient should start on September 05, 2023. - omeprazole (PRILOSEC) 20 mg capsule Take 1 capsule by mouth once daily. - losartan (COZAAR) 100 mg tablet Take 1 tablet by mouth once daily. - sildenafil (VIAGRA) 50 mg tablet Take 1 tablet by mouth as needed. - rosuvastatin (CRESTOR) 40 mg tablet Take 1 tablet by mouth daily at bedtime. - metoprolol tartrate, short acting, (LOPRESSOR) 50 mg tablet Take 1 tablet by mouth two times a day. - albuterol HFA (PROVENTIL HFA, VENTOLIN HFA) 90 mcg/actuation inhaler Inhale 2 Puffs as instructed every 6 hours as needed for wheezing/shortness of breath. - apixaban (ELIQUIS) 5 mg tab(s) Take 1 tablet by mouth twice daily. - acetaminophen (TYLENOL ORAL) Take by mouth as needed. - amLODIPine (NORVASC) 2.5 mg tablet Take 1 tablet by mouth once daily. Per Dr. Dietz - aspirin 81 mg chewable tablet Take 1 tablet by mouth once daily. - therapeutic multivitamin (THERA VITAMIN) tablet Take 1 tablet by mouth daily with breakfast. Meds Comments as of 11/08/2014: Advil as needed. 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] 06/26/2012 Hyperlipidemia with target LDL less than 100 [E*04/17/2013 History of kidney stones [Z87.442] 06/18/2013 Elevated PSA [R97.20] 06/18/2013 11/11/2021 BPH (benign prostatic hypertrophy) with urinary*10/10/2013 Diverticulitis of colon [K57.32] 05/20/2014 07/18/2018 GERD (gastroesophageal reflux disease) [K21.9] 05/20/2014 Abdominal pain, acute, right upper quadrant [R1*11/08/2014 12/04/2015 Presence of drug coated stent in LAD coronary a*05/05/2015 Obesity (BMI 30-39.9) [E66.9] 10/15/2015 LLQ pain [R10.32] 11/20/2015 12/04/2015 Atherosclerosis of [place] coronary artery with *11/08/2016 05/04/2017 Lipid disorder [E78.9] 11/08/2016 Atelectasis [J98.11] 11/12/2016 07/18/2018 Postprocedural hypotension [I95.81] 11/12/2016 11/14/2016 Pain, postoperative, acute [G89.18] 11/12/2016 05/04/2017 Stress hyperglycemia [R73.9] 11/13/2016 11/15/2016 SUMMARY 11/15/2016 11/17/2022 Paroxysmal A-fib (HCC) [I48.0] 11/20/2016 05/04/2017 ASHD (arteriosclerotic heart disease) [I25.10] 05/04/2017 S/P CABG x 4 [Z95.1] 05/04/2017 Plantar fasciitis of right foot [M72.2] 12/02/2017 07/18/2018 Family history of prostate cancer [Z80.42] 07/18/2018 Osteoarthritis of spine with radiculopathy, cer*07/18/2018 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] 09/20/2019 11/17/2022 Lumbar radiculopathy [M54.16] 09/20/2019 Shoulder impingement syndrome, right [M75.41] 01/02/2020 11/17/2022 Shoulder impingement syndrome, left [M75.42] 01/02/2020 11/17/2022 Paroxysmal atrial fibrillation (HCC) [I48.0] 10/10/2020 Squamous cell skin cancer [C44.92] 05/13/2021 11/17/2022 History of squamous cell carcinoma [Z85.89] 11/17/2022 Preop testing [Z01.818] 09/08/2023 Arteriosclerosis of coronary artery [I25.10] 06/22/2022 Encounter Status:Closed by CURTIS TINOCO on 09/16/23 [facility] ALLIED HEALTHon 09-15-2023 ALLIED HEALTH HNO ID: [id number] Author: BARBER CAMARENA Chaplain Service: Spiritual Care Author Type: Spoilage Worker Type: Allied Health Filed: 09/15/2023 12:04 Note Text: SPIRITUAL CARE PROGRESS NOTE SERVICE DATE: 09/15/2023 SERVICE TIME: 10:45am Spoilage Worker was empathic support with patient and partner; patient seemed anxious before surgery and solar crew member normalized feelings and prayed To contact the Spiritual Care Department: Please call . SIGNATURE: Chaplain Marlin PATIENT NAME: Curtis Guerrier DATE: September 15, 2023 TIME: 12:03 PM PAGER/CONTACT #: [phone] [facility] ANES POSTPROC EVALon 024 ANES POSTPROC EVAL HNO ID: [id number] Author: BAKARI ANTONIO MD Service: Anesthesiology Author Type: Anesthesiologist Type: Anesthesia Postprocedure Evaluation Filed: 09/16/2023 15:03 Note Text: POST ANESTHESIA EVALUATION NOTE : 1950 Procedure Summary Date: 09/15/23 Room / Location: [place] OR Anesthesia Start: 1042 Anesthesia Stop: 1209 Procedures: EXTRACORPOREAL SHOCKWAVE LITHOTRIPSY UNILATERAL (Right: Kidney) CYSTOSCOPY (Bladder) Diagnosis: Calculus, renal (Calculus, renal [N20.0]) Surgeons: Curtis Tinoco MD Responsible Provider: Bakari Antonio MD Anesthesia Type: general ASA Status: 3 Anesthesia Type: general Airway Type: LMA Last Vitals Vitals Value Taken Time BP 145/78 09/15/23 1335 Temp 36 ?C (96.8 ?F) 09/15/23 1335 HR SpO2 52 09/15/23 1336 Resp 12 09/15/23 1335 SpO2 95 % 09/15/23 1336 Vitals shown include unfiled device data. Post Anesthesia Patient Status Patient Evaluation: bedside. Anticipated Disposition: phase 2 then home. Neurological Status: aware and responsive. Pulmonary Status: breathing comfortably on room air Airway Control: returned to baseline unsupported. Cardiovascular Status: stable. Pain Management: clinically adequate - multimodal analgesia pain management approach Postoperative Hydration: acceptable. Intraoperative Events: no significant anesthesia events Post Operative Nausea/Vomiting Status: no significant post operative nausea or vomiting Recommendation: continue current plan of care. Anesthesia Observations No Documentation SIGNATURE: Bakari Antonio MD PATIENT NAME: Curtis Guerrier DATE: September 15, 2023 TIME: 3:02 PM CSN: [id number] [facility] ANES PRE-OPon 09-15-2023 ANES PRE-OP HNO ID: [id number] Author: BAKARI ANTONIO MD Service: Anesthesiology Author Type: Anesthesiologist Type: Anesthesia Preprocedure Evaluation Filed: 09/15/2023 10:18 Note Text: ANESTHESIOLOGY DAY OF SURGERY NOTE : 1950 Procedure Information Date/Time: 09/15/23 1045 Procedure: EXTRACORPOREAL SHOCKWAVE LITHOTRIPSY UNILATERAL (Right: Kidney) Location: [place] [address] [place] [address] OR Surgeons: Curtis Tinoco MD Estimated body mass index is 34.9 kg/m? as calculated from the following: Height as of 09/08/23: 167.6 cm (5' 6). Weight as of 09/08/23: 98.1 kg (216 lb 3.2 oz). Most recent hematocrit and potassium results: Hematocrit 45.3 09/08/2023 Potassium 4.5 09/08/2023 Relevant Problems CARDIO (+) ASHD (arteriosclerotic heart disease) (+) Arteriosclerosis of coronary artery (+) Essential hypertension, benign (+) Paroxysmal atrial fibrillation (HCC) (+) Presence of drug coated stent in LAD coronary artery (+) S/P CABG x 4 GI (+) GERD (gastroesophageal reflux disease) NEURO-PSYCH (+) History of kidney stones (+) History of squamous cell carcinoma - HTN, pAF, GERD, CAD s/p CABG in 2017, neg stress test 2021, environmental induced wheezing, rare albuterol use (not in last month) I - PHYSICAL EVALUATION AIRWAY Patient intubated: No. Tracheostomy tube not present Mallampati: II. TM distance: >3 FB. Neck ROM: full ROM without neurological symptoms. Mouth opening: adequate. Short neck: no. Thick neck: no [place] present: yes DENTAL Dental findings: teeth intact. II - ANESTHESIA PLAN ASA Score: 3 Anesthetic Plan: general Airway type: LMA The patient is not a current smoker. NPO Status: adequate Beta Isadora Monitoring Plan Monitoring plan: standard ASA. Post Procedure Analgesic Plan Postoperative analgesic plan: multimodal analgesia. Informed Consent Anesthetic risks, benefits, alternatives, personnel and consent discussed: yes. Patient / Responsible Republican agrees to proceed: yes Patient / Surrogate agrees to blood products: Yes Potential Anesthesia issues that may suggest increased risk of complications or contraindication to planned procedure: none. Vitals Value Taken Time BP 175/69 09/15/23 0952 Pulse 50 09/15/23 0952 Resp 18 09/15/23 0952 Temp 36 ?C (96.8 ?F) 09/15/23 0952 SpO2 100 % 09/15/23 0952 Facility-Administered Medications as of 09/15/2023 Medication Dose Route Frequency lactated ringers iv infusion 5-30 mL/hr INTRAVENOUS CONTINUOUS lidocaine (PF) 10 mg/mL (1 %) 1-2 mg injection (XYLOCAINE) 0.1-0.2 mL INTRADERMAL PRN lactated ringers iv infusion 5-30 mL/hr INTRAVENOUS CONTINUOUS NaCl 0.9% iv flush bag 20 mL INTRAVENOUS PRN ceFAZolin iv piggyback 2 g in D5W (iso-osmotic) 100 mL (ANCEF) 2 g INTRAVENOUS Pre-Op Once Outpatient Medications as of 09/15/2023 Medication Sig tamsulosin (FLOMAX) 0.4 mg Take 1 capsule by mouth daily at bedtime. Patient should start on September 05, 2023. omeprazole (PRILOSEC) 20 mg capsule Take 1 capsule by mouth once daily. losartan (COZAAR) 100 mg tablet Take 1 tablet by mouth once daily. rosuvastatin (CRESTOR) 40 mg tablet Take 1 tablet by mouth daily at bedtime. metoprolol tartrate, short acting, (LOPRESSOR) 50 mg tablet Take 1 tablet by mouth two times a day. apixaban (ELIQUIS) 5 mg tab(s) Take 1 tablet by mouth twice daily. sildenafil (VIAGRA) 50 mg tablet Take 1 tablet by mouth as needed. albuterol HFA (PROVENTIL HFA, VENTOLIN HFA) 90 mcg/actuation inhaler Inhale 2 Puffs as instructed every 6 hours as needed for wheezing/shortness of breath. acetaminophen (TYLENOL ORAL) Take by mouth as needed. amLODIPine (NORVASC) 2.5 mg tablet Take 1 tablet by mouth once daily. Per Dr. Dietz aspirin 81 mg chewable tablet Take 1 tablet by mouth once daily. therapeutic multivitamin (THERA VITAMIN) tablet Take 1 tablet by mouth daily with breakfast. I have interviewed and examined the patient. I have reviewed the medical record and/or the pre-anesthesia evaluation, pertinent labs, and test results. This contains updated information obtained within 48 hours of Surgery/Procedure. SIGNATURE: Bakari Antonio MD PATIENT NAME: Curtis Guerrier DATE: September 15, 2023 TIME: 10:16 AM CSN: [id number] Normal [facility] NURSING PROGon 09-15-2023 NURSING PROG HNO ID: [id number] Author: TONIO BOO, RN Service: ? Author Type: Registered Nurse Type: Nursing Progress Note Filed: 09/15/2023 10:32 Note Text: Attempted IV x2 unsuccessfully.Pt tolerated attempts well. aware of need for IV placement. Pt states:I have been a difficult stick ion the past. Normal [facility] OPERATIVE NOon 09-15-2023 OPERATIVE NO HNO ID: [id number] Author: CURTIS TINOCO MD Service: Urology Author Type: Physician Type: Operative Report Filed: 09/15/2023 12:29 Note Text: OPERATIVE/PROCEDURE REPORT LOG ID: [id number] SURGERY/PROCEDURE DATE: 09/15/2023 INCISION/PROCEDURE START TIME: 11:03 AM INCISION CLOSE/PROCEDURE END TIME: 12:01 PM SURGEON(S)/PROCEDURALIST(S) AND HEAD BANDER AND LINER OPERATOR(S): Surgeon(s) and Role: * Curtis Tinoco MD - Primary * Mireille Borden MD - Resident - Assisting No Additional Staff SURGERY/PROCEDURE(S): Cystoscopy Right extracorporeal shock wave lithotripsy ANESTHESIA: General SURGERY/PROCEDURE DETAILS: Curtis Guerrier is a 73 year old patient who presents with a right renal calculus. After having a discussion on treatment options, risks and benefits, the patient wishes to proceed forward with surgical intervention. Patient was brought to the operating room and identified using name band/number. A thorough time out was performed and everyone present was in agreement. Patient was placed on OR table. Anesthesia and lines were maintained by the anesthesia team. CYSTOSCOPY Prior to the procedure, the patient was placed in the dorsal lithotomy position. Pressure points were padded. A flexible cystoscopy was advanced into the bladder. A 0.035 glide wire was advanced up the right side. Wire position was used to confirm location of the known renal calculus in the upper pole via fluoroscopy. ESWL Patient was placed in the supine position. Using flouroscopic visualization, the calculus was able to be visualized. The focal point of the lithotripter was positioned over the stone in a three dimensional coordinate plane. A total of 2500 shocks at a power of 5 were delivered with fluoroscopic guidance. Due to braycardia, shocks were paced with EKG. There was fragmentation of the stone seen at the termination of the procedure PRE-OP/PRE-PROCEDURE DIAGNOSIS: Calculus, renal [N20.0] RIGHT POST-OP/POST-PROCEDURE DIAGNOSIS: same ESTIMATED BLOOD LOSS: 0 ml SPECIMENS: None IMPLANTABLE DEVICES: NONE DRAINS: None COMPLICATIONS: None PARTICIPATION IN SURGERY/PROCEDURE: Resident performed the case and the attending surgeon was present for the critical portions of the case. SIGNATURE: Mireille Borden MD PATIENT NAME: Curtis Guerrier DATE: September 15, 2023 TIME: 10:36 AM PAGER/CONTACT #: [phone] I was present for the entire procedure and directly participated in the critical and rush portions of the surgery. I was immediately available to provide assistance throughout the entire case. Curtis Tinoco MD [facility] XR ABDOMEN 1V SUPINEon 09-14 XR ABDOMEN 1V SUPINE * * *Final Report* * * DATE OF EXAM: Sep 15 2023 9:15AM AKX [id number] - XR ABDOMEN 1V SUPINE / PROCEDURE REASON: Pre/Post operative evaluation * * * * Physician Interpretation * * * * SUPINE ABDOMEN: CLINICAL INDICATION: Right renal calculus. Scheduled ESWL. COMPARISON: Renal ultrasound and abdomen radiographs 09/02/2023, CT abdomen and pelvis 08/04/2023 and abdomen radiographs 01/15/2020. Supine KUB type abdomen and AP transverse upper abdomen radiographs are submitted. Evaluation for presence the of renal calculi is limited by overlying bowel. A right renal calculus seen on comparison CT abdomen and pelvis 08/04/2023 is not convincingly visualized. There is a nonobstructive distribution of bowel gas. Surgical mesh material overlies right hemipelvis. Degenerative skeletal changes. Median sternotomy cerclage wires. IMPRESSION: Overlying bowel limits evaluation for the presence of renal calculi. A right renal calculus seen on comparison CT abdomen and pelvis 08/04/2023 is not convincingly visualized. A stat reading is made available at time of dictation as requested. 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 Service Operator: PSCB Transcribe Date/Time: Sep 15 2023 10:51A Dictated by : FABRICE RIVERA MD This examination was interpreted and the report reviewed and electronically signed by: FABRICE RIVERA MD on Sep 15 2023 10:55AM EST [id number] Normal [facility] CURTIS GUERRIER ([id number]) 1950 M Date Time Provider Department 09/12/23 CURTIS TINOCO During your visit today, we recorded the following information about you: Yasemin Amaya MA 09/12/2023 8:09 AM Signed ----- Message from Curtis Tinoco MD sent at 09/12/2023 6:25 AM EDT ----- PREPRESS TECHNICIAN, antibiotics sent to pharmacy Yasemin Amaya MA 09/12/2023 8:10 AM Signed Phoned patient and notified of result as per provider. Patient acknowledged understanding of instructions and has no further questions. Yasemin Amaya MA Allergies As of Date: 09/12/2023 Noted Allergy Reaction IV CONTRAST (IODINE) 06/04/2019 18 - Angioedema Comments: IV contrast 06/01/2019 LIPITOR (ATORVASTATIN CALCIUM) 03/06/2007 Comments: myalgia LOVASTATIN 03/06/2007 Comments: myalgia [id number]-[id number] REDUCTASE INHIBIT*04/05/2011 14 - Other: See Comments 17 - Myalgia Comments: sore joints and muscles Date Reviewed: 09/08/2023 Reviewed by: Jeremy Ruiz APRN.PRODUCTION TEAM MANAGER - Fully Assessed Reason for Visit: Results [95] Prescriptions as of 09/12/2023 - cephALEXin (KEFLEX) 500 mg capsule Take 1 capsule by mouth three times a day for 7 days. - tamsulosin (FLOMAX) 0.4 mg Take 1 capsule by mouth daily at bedtime. Patient should start on September 05, 2023. - omeprazole (PRILOSEC) 20 mg capsule Take 1 capsule by mouth once daily. - losartan (COZAAR) 100 mg tablet Take 1 tablet by mouth once daily. - sildenafil (VIAGRA) 50 mg tablet Take 1 tablet by mouth as needed. - rosuvastatin (CRESTOR) 40 mg tablet Take 1 tablet by mouth daily at bedtime. - metoprolol tartrate, short acting, (LOPRESSOR) 50 mg tablet Take 1 tablet by mouth two times a day. - albuterol HFA (PROVENTIL HFA, VENTOLIN HFA) 90 mcg/actuation inhaler Inhale 2 Puffs as instructed every 6 hours as needed for wheezing/shortness of breath. - apixaban (ELIQUIS) 5 mg tab(s) Take 1 tablet by mouth twice daily. - acetaminophen (TYLENOL ORAL) Take by mouth as needed. - amLODIPine (NORVASC) 2.5 mg tablet Take 1 tablet by mouth once daily. Per Dr. Dietz - aspirin 81 mg chewable tablet Take 1 tablet by mouth once daily. - therapeutic multivitamin (THERA VITAMIN) tablet Take 1 tablet by mouth daily with breakfast. Meds Comments as of 11/08/2014: Advil as needed. 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] 06/26/2012 Hyperlipidemia with target LDL less than 100 [E*04/17/2013 History of kidney stones [Z87.442] 06/18/2013 Elevated PSA [R97.20] 06/18/2013 11/11/2021 BPH (benign prostatic hypertrophy) with urinary*10/10/2013 Diverticulitis of colon [K57.32] 05/20/2014 07/18/2018 GERD (gastroesophageal reflux disease) [K21.9] 05/20/2014 Abdominal pain, acute, right upper quadrant [R1*11/08/2014 12/04/2015 Presence of drug coated stent in LAD coronary a*05/05/2015 Obesity (BMI 30-39.9) [E66.9] 10/15/2015 LLQ pain [R10.32] 11/20/2015 12/04/2015 Atherosclerosis of [place] coronary artery with *11/08/2016 05/04/2017 Lipid disorder [E78.9] 11/08/2016 Atelectasis [J98.11] 11/12/2016 07/18/2018 Postprocedural hypotension [I95.81] 11/12/2016 11/14/2016 Pain, postoperative, acute [G89.18] 11/12/2016 05/04/2017 Stress hyperglycemia [R73.9] 11/13/2016 11/15/2016 SUMMARY 11/15/2016 11/17/2022 Paroxysmal A-fib (HCC) [I48.0] 11/20/2016 05/04/2017 ASHD (arteriosclerotic heart disease) [I25.10] 05/04/2017 S/P CABG x 4 [Z95.1] 05/04/2017 Plantar fasciitis of right foot [M72.2] 12/02/2017 07/18/2018 Family history of prostate cancer [Z80.42] 07/18/2018 Osteoarthritis of spine with radiculopathy, cer*07/18/2018 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] 09/20/2019 11/17/2022 Lumbar radiculopathy [M54.16] 09/20/2019 Shoulder impingement syndrome, right [M75.41] 01/02/2020 11/17/2022 Shoulder impingement syndrome, left [M75.42] 01/02/2020 11/17/2022 Paroxysmal atrial fibrillation (HCC) [I48.0] 10/10/2020 Squamous cell skin cancer [C44.92] 05/13/2021 11/17/2022 History of squamous cell carcinoma [Z85.89] 11/17/2022 Preop testing [Z01.818] 09/08/2023 Arteriosclerosis of coronary artery [I25.10] 06/22/2022 Encounter Status:Closed by YASEMIN AMAYA on 09/12/23 Normal [facility] Bacteria Ur Culton Bacteria identified Cx Nom (U) CULTURE, URINE: 50,000-<100,000 CFU/ml Normal Urogenital Yamilex Normal [facility] Comment on above: Performed By: #### 6 30-4 ####[facility] LABORATORYCLIA [id number] [place] [address] [place] Basic metabolic 2000 panelon 09-08-2023 Anion gap [Moles/Vol] 11 mmol/L Normal 8-15 [facility] Comment on above: Order Comment: Speci men Type: BLOOD SPECIMENOrdering Facility: [facility] Address: [address] [place] [address] Performed By: #### 2 4321-2 ####[facility] LABORATORYCLIA [id number] [place] [address] [place] Calcium [Mass/Vol] 9.5 mg/dL Normal 8.5-10.2 [facility] Comment on above: Order Comment: Speci men Type: BLOOD SPECIMENOrdering Facility: [facility] Address: [address] [id number] Performed By: #### 2 4321-2 ####[facility] LABORATORYCLIA [id number] [place] [address] [place] Chloride [Moles/Vol] 104 mmol/L Normal 98-107 [facility] Comment on above: Order Comment: Speci men Type: BLOOD SPECIMENOrdering Facility: [facility] Address: [address] [place] [address] Performed By: #### 2 4321-2 ####[facility] LABORATORYCLIA [id number] [address] STATES OF [facility] CO2 [Moles/Vol] 25 mmol/L Normal 22-30 [facility] Comment on above: Order Comment: Speci men Type: BLOOD SPECIMENOrdering Facility: [facility] Address: [address] [place] [address] Performed By: #### 2 4321-2 ####[facility]ENTER[facility]IA [id number] [address] Creatinine [Mass/Vol] 1.00 mg/dL Normal 0.73-1.22 [facility] Comment on above: Order Comment: Speci men Type: BLOOD SPECIMENOrdering Facility: [facility] Address: [address] [place] [address] Performed By: #### 2 4321-2 ####[facility] LABORATORYCLIA [id number] [address] Creatinine and Glomerular filtration rate.predicted panel (S/P/Bld) 79 mL/min/1.73m??? Normal >=60 [facility] Comment on above: Order Comment: Speci men Type: BLOOD SPECIMENOrdering Facility: [facility] Address: [address] [place] [address] Result Comment: Zully mated Glomerular Filtration Rate (eGFR) is calculated using the 2020 CKD-EPI creatinine equation. This equation utilizes serum creatinine, sex, and age as parameters. The creatinine assay has traceable calibration to isotope dilution-mass spectrometry. Refer to KDIGO guidelines for clinical interpretation. In patients with unstable renal function, e.g. those with acute kidney injury, the eGFR may not accurately reflect actual GFR. Performed By: #### 2 4321-2 ####[facility] LABORATORYCLIA [id number] [place] [address] [place] Glucose [Mass/Vol] 91 mg/dL Normal 74-99 [facility] Comment on above: Order Comment: Speci men Type: BLOOD SPECIMENOrdering Facility: [facility] Address: [address] [place] [address] Result Comment: The [place] Diabetes Association (ADA) provides guidance for cutoff values for fasting glucose and random glucose. The ADA defines fasting as no caloric intake for at least 8 hours. Fasting plasma glucose results between 100 to 125 mg/dL indicate increased risk for diabetes (prediabetes). Fasting plasma glucose results greater than or equal to 126 mg/dL meet the criteria for diagnosis of diabetes. In the absence of unequivocal hyperglycemia, results should be confirmed by repeat testing. In a patient with classic symptoms of hyperglycemia or hyperglycemic crisis, random plasma glucose results greater than or equal to 200 mg/dL meet the criteria for diagnosis of diabetes. Reference: Standards of Medical Care in Diabetes 2016, [place] Diabetes Association. Diabetes Care. 2016.39(Suppl 1). Performed By: #### 2 4321-2 ####[facility] LABORATORYCLIA [id number] [place] [address] [place] Potassium [Moles/Vol] 4.5 mmol/L Normal 3.7-5.1 [facility] Comment on above: Order Comment: Sethi men Type: BLOOD SPECIMENOrdering Facility: [facility] Address: [address] [place] [address] Performed By: #### 2 4321-2 ####[facility] LABORATORYCLIA [id number] [place] [address] [place] Sodium [Moles/Vol] 140 mmol/L Normal 136-144 [facility] Comment on above: Order Comment: Speci men Type: BLOOD SPECIMENOrdering Facility: [facility] Address: [address] [place] [address] Performed By: #### 2 4321-2 ####[facility] LABORATORYCLIA [id number] [place] [address] [place] Urea nitrogen [Mass/Vol] 21 mg/dL Normal 9-24 [facility] Comment on above: Order Comment: Speci men Type: BLOOD SPECIMENOrdering Facility: [facility] Address: [address] [place] [address] Performed By: #### 2 4321-2 ####[facility] LABORATORYCLIA [id number] [address] CBC panel Auto (Bld)on 09-07 Erythrocyte distribution width (RBC) [Ratio] 13.2 % Normal 11.5-15.0 [facility] Comment on above: Order Comment: Speci men Type: BLOOD SPECIMENOrdering Facility: [facility] Address: [address] [place] [address] Performed By: #### 5 8410-2 ####[facility] LABORATORYCLIA [id number] [address] Hematocrit (Bld) [Volume fraction] 45.3 % Normal 39.0-51.0 [facility] Comment on above: Order Comment: Speci men Type: BLOOD SPECIMENOrdering Facility: [facility] Address: [address] [place] [address] Performed By: #### 5 8410-2 ####[facility] LABORATORYCLIA [id number] [address] Hemoglobin (Bld) [Mass/Vol] 15.0 g/dL Normal 13.0-17.0 [facility] Comment on above: Order Comment: Speci men Type: BLOOD SPECIMENOrdering Facility: [facility] Address: [address] [place] [address] Performed By: #### 5 8410-2 ####[facility] LABORATORYCLIA [id number] [address] MCH (RBC) [Entitic mass] 33.1 pg Normal 26.0-34.0 [facility] Comment on above: Order Comment: Speci men Type: BLOOD SPECIMENOrdering Facility: [facility] Address: [address] [place] [address] Performed By: #### 5 8410-2 ####[facility] LABORATORYCLIA [id number] MCHC (RBC) [Mass/Vol] 33.1 g/dL Normal 30.5-36.0 [facility] Comment on above: Order Comment: Speci men Type: BLOOD SPECIMENOrdering Facility: [facility] Address: [address] [place] [address] Performed By: #### 5 8410-2 ####[facility] LABORATORYCLIA [id number] [address] [place] MCV (RBC) [Entitic vol] 100.0 fL Normal 80.0-100.0 [facility] Comment on above: Order Comment: Speci men Type: BLOOD SPECIMENOrdering Facility: [facility] Address: [address] [place] [address] Performed By: #### 5 8410-2 ####[facility] LABORATORYCLIA [id number] [address] STATES [facility] Nucleated RBC (Bld) [#/Vol] 10*3/uL Normal <0.01 [facility] Comment on above: Order Comment: Speci men Type: BLOOD SPECIMENOrdering Facility: [facility] Address: [address] [place] [address] Performed By: #### 5 8410-2 ####[facility] LABORATORYCLIA [id number] [address] [place] Platelet mean volume (Bld) [Entitic vol] 11.2 fL Normal 9.0-12.7 [facility] Comment on above: Order Comment: Speci men Type: BLOOD SPECIMENOrdering Facility: [facility] Address: [address] [place] [address] Performed By: #### 5 8410-2 ####[facility] LABORATORYCLIA [id number] [address] [place] Platelets (Bld) [#/Vol] 190 10*3/uL Normal 150-400 [facility] Comment on above: Order Comment: Speci men Type: BLOOD SPECIMENOrdering Facility: [facility] Address: [address] [place] [address] Performed By: #### 5 8410-2 ####[facility] LABORATORYCLIA [id number] [address] [facility] RBC (Bld) [#/Vol] 4.53 10*6/uL Normal 4.20-6.00 [facility] Comment on above: Order Comment: Speci men Type: BLOOD SPECIMENOrdering Facility: [facility] Address: [address] [place] [address] Performed By: #### 5 8410-2 ####[facility] LABORATORYCLIA [id number] [address] WBC (Bld) [#/Vol] 6.69 10*3/uL Normal 3.70-11.00 [facility] Comment on above: Order Comment: Speci men Type: BLOOD SPECIMENOrdering Facility: [facility] Address: [address] [place] [address] Performed By: #### 5 8410-2 ####[facility] LABORATORYCLIA [id number] [address] CNPNon 09-08-2023 CNPN Telephone (AKURFL) CURTIS GUERRIER ([id number]) 1950 M Date Time Provider Department 09/08/23 CURTIS TINOCO KYRIO During your visit today, we recorded the following information about you: Cherri Grimes 09/08/2023 8:34 AM Signed Pt is scheduled for Rt ESWL with Dr Tinoco at [facility] on 09/15/23 @ 1:15 (11:15 arrival). PAT and labs on 09/08/23 @ 10:40 at [facility]. Pt needs to stop aspirin 7 days prior and stop Eliquis 3 days prior. Clearance request faxed to PCP Dr Jason Cook on 09/07/23. 09/08/23- Clearance received and scanned into chart. Pt given date, time, prep and arrival instructions over the phone on 09/07/23. [employer] message sent also. Cherri Fields 09/12/2023 1:44 PM Signed Pt notified of time change for surgery on 09/15/23 to 12:00 (10:00 arrival). Cherri Grimes Allergies As of Date: 09/08/2023 Noted Allergy Reaction IV CONTRAST (IODINE) 06/04/2019 18 - Angioedema Comments: IV contrast 06/01/2019 LIPITOR (ATORVASTATIN CALCIUM) 03/06/2007 Comments: myalgia LOVASTATIN 03/06/2007 Comments: myalgia HBRGMJA-RRQ-[id number] REDUCTASE INHIBIT*04/05/2011 14 - Other: See Comments 17 - Myalgia Comments: sore joints and muscles Date Reviewed: 09/08/2023 Reviewed by: Jeremy Ruiz APRN.PRODUCTION TEAM MANAGER - Fully Assessed Reason for Visit: Surgery Scheduled [Other] Prescriptions as of 09/14/2023 - cephALEXin (KEFLEX) 500 mg capsule Take 1 capsule by mouth three times a day for 7 days. - tamsulosin (FLOMAX) 0.4 mg Take 1 capsule by mouth daily at bedtime. Patient should start on September 05, 2023. - omeprazole (PRILOSEC) 20 mg capsule Take 1 capsule by mouth once daily. - losartan (COZAAR) 100 mg tablet Take 1 tablet by mouth once daily. - sildenafil (VIAGRA) 50 mg tablet Take 1 tablet by mouth as needed. - rosuvastatin (CRESTOR) 40 mg tablet Take 1 tablet by mouth daily at bedtime. - metoprolol tartrate, short acting, (LOPRESSOR) 50 mg tablet Take 1 tablet by mouth two times a day. - albuterol HFA (PROVENTIL HFA, VENTOLIN HFA) 90 mcg/actuation inhaler Inhale 2 Puffs as instructed every 6 hours as needed for wheezing/shortness of breath. - apixaban (ELIQUIS) 5 mg tab(s) Take 1 tablet by mouth twice daily. - acetaminophen (TYLENOL ORAL) Take by mouth as needed. - amLODIPine (NORVASC) 2.5 mg tablet Take 1 tablet by mouth once daily. Per Dr. Dietz - aspirin 81 mg chewable tablet Take 1 tablet by mouth once daily. - therapeutic multivitamin (THERA VITAMIN) tablet Take 1 tablet by mouth daily with breakfast. Meds Comments as of 11/08/2014: Advil as needed. 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] 06/26/2012 Hyperlipidemia with target LDL less than 100 [E*04/17/2013 History of kidney stones [Z87.442] 06/18/2013 Elevated PSA [R97.20] 06/18/2013 11/11/2021 BPH (benign prostatic hypertrophy) with urinary*10/10/2013 Diverticulitis of colon [K57.32] 05/20/2014 07/18/2018 GERD (gastroesophageal reflux disease) [K21.9] 05/20/2014 Abdominal pain, acute, right upper quadrant [R1*11/08/2014 12/04/2015 Presence of drug coated stent in LAD coronary a*05/05/2015 Obesity (BMI 30-39.9) [E66.9] 10/15/2015 LLQ pain [R10.32] 11/20/2015 12/04/2015 Atherosclerosis of [place] coronary artery with *11/08/2016 05/04/2017 Lipid disorder [E78.9] 11/08/2016 Atelectasis [J98.11] 11/12/2016 07/18/2018 Postprocedural hypotension [I95.81] 11/12/2016 11/14/2016 Pain, postoperative, acute [G89.18] 11/12/2016 05/04/2017 Stress hyperglycemia [R73.9] 11/13/2016 11/15/2016 SUMMARY 11/15/2016 11/17/2022 Paroxysmal A-fib (HCC) [I48.0] 11/20/2016 05/04/2017 ASHD (arteriosclerotic heart disease) [I25.10] 05/04/2017 S/P CABG x 4 [Z95.1] 05/04/2017 Plantar fasciitis of right foot [M72.2] 12/02/2017 07/18/2018 Family history of prostate cancer [Z80.42] 07/18/2018 Osteoarthritis of spine with radiculopathy, cer*07/18/2018 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] 09/20/2019 11/17/2022 Lumbar radiculopathy [M54.16] 09/20/2019 Shoulder impingement syndrome, right [M75.41] 01/02/2020 11/17/2022 Shoulder impingement syndrome, left [M75.42] 01/02/2020 11/17/2022 Paroxysmal atrial fibrillation (HCC) [I48.0] 10/10/2020 Squamous cell skin cancer [C44.92] 05/13/2021 11/17/2022 History of squamous cell carcinoma [Z85.89] 11/17/2022 Preop testing [Z01.818] 09/08/2023 Arteriosclerosis of coronary artery [I25.10] 06/22/2022 Encounter Status:Closed by CHERRI GRIMES on 09/08/23 [facility] HISTORY PHYSICALon HISTORY PHYSICAL HNO ID: [id number] Author: JEREMY RUIZ APRN.CNP Service: ? Author Type: Nurse Practitioner Type: H&P Filed: 09/08/2023 11:16 Note Text: HISTORY AND PHYSICAL EXAMINATION SERVICE DATE: 09/08/2023 SERVICE TIME: 10:40 AM PRIMARY CARE PHYSICIAN: Jason Cook MD Assessment Patient has the following medical conditions which may affect riccardo-operative course: Preop testing Assessment : See Note for medical conditions which may affect riccardo-operative course was addressed in visit today. Arteriosclerosis of coronary artery Assessment: Followed by Cardiology - H/O CABG - H/O cardiac stent - taking aspirin; metoprolol Plan: Aspirin-patient instructed to notify surgeon and prescriber for preop instructions Paroxysmal atrial fibrillation (HCC) Assessment: Followed by Cardiology - taking Eliquis; metoprolol Plan: Eliquis-patient instructed to notify surgeon and prescriber for preop instructions. Metoprolol patient instructed to take day of surgery. GERD (gastroesophageal reflux disease) Assessment: Taking omeprazole Essential hypertension, benign Assessment: Taking amlodipine; losartan Plan: Losartan-patient instructed to hold day of surgery. Hyperlipidemia with target LDL less than 100 Assessment: Taking rosuvastatin 40 mg daily. Obesity (BMI 30-39.9) Assessment: BMI 34.90 NOTE: Patient denies history of DVT and Stroke. Stress Test scanned in [facility] 12/22/2021 demonstrated EF 68% Campbell Activity Status Index: METS: Climb a flight of stairs or walk up a hill (5.50 METs) DASI Score: 5.5 Patient denies any chest pain or undue shortness of breath with the above physical activity. Clinical Frailty Scale: 3. Well, with treated comorbid disease ARISCAT Score: Age: 51-80 Preoperative SpO2: >=96% Respiratory infection in the last month: No Preoperative anemia: No Surgical incision: peripheral Duration of surgery: <2 hrs Emergency procedure: No ARISCAT Score: 3 ANESTHESIA FINDINGS: Intubation History: No history of difficult intubation Significant Anesthesia Considerations: none Airway History: No history of difficult airway I - PHYSICAL EVALUATION AIRWAY Patient intubated: No. DENTAL Dental findings: teeth intact. II - ANESTHESIA PLAN Anesthetic Plan: general Beta Isadora Monitoring Plan Post Procedure Analgesic Plan Prepared for Surgery: CONSULTS: Patient does not require consults for optimization at this time Planned Anesthetic: general The Following Tests/Procedures Have Been Initiated: No orders of the defined types were placed in this encounter. REASON FOR VISIT: Curtis Guerrier is a 73 year old male who is scheduled for Procedure(s): EXTRACORPOREAL SHOCKWAVE LITHOTRIPSY UNILATERAL (Right) at the request of @REFPROV2@ for routine HANDP. My final recommendation will be communicated back to the requesting physician by way of shared medical record or letter. The reason for this visit is to perform a comprehensive review of the patient's past medical history, assess their current health status and obtain any additional testing required based on anesthesia guidelines. We will also identify any potential anesthesia problems or contraindications to the planned procedure. Subjective The patient has the following: ACTIVE PROBLEM LIST Essential Hypertension, Benign Hearing Loss Hypercalciuria Hyperlipidemia With Target Ldl Less Than 100 History of Kidney Stones Bph (Benign Prostatic Hypertrophy) With Urinary Obstruction Gerd (Gastroesophageal Reflux Disease) Presence of Drug Coated 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 Coronary Artery Obesity (Bmi 30-39.9) Lipid Disorder Ashd (Arteriosclerotic Heart Disease) S/P Cabg X 4 Family History of Prostate Cancer Osteoarthritis of Spine With Radiculopathy, Cervical Region Lumbar Radiculopathy Paroxysmal Atrial Fibrillation (Hcc) History of Squamous Cell Carcinoma Preop Testing Arteriosclerosis of Coronary Artery COVID-19 Immunization Status Covid-19 Vaccine (Series Information) Completed 07/26/2023 Imm Admin: COVID-19 vaccine, age 12+ yr, season (MODERNA) 12/18/2022 Imm Admin: COVID-19 vaccine, age 12+ yr, season (MODERNA) 12/23/2021 Imm Admin: COVID-19 vaccine, age 12+ yr, bivalent (Gate2Play) Only the first 3 history entries have been loaded, but more history exists. CHIEF COMPLAINT: Renal stone HPI: Patient reports history of renal stones. Today, he denies pain, rating 0 out of 10 on the numeric pain scale. He reports he does experience occasional right flank pain. He denies urinary urgency or frequency, dysuria or hematuria at this time. After discussion with surgeon patient agreeable to surgical intervention. REVIEW OF SYSTEMS: General: No weight loss, malaise or fevers. Neurological: Negative for: headaches, seizures and strokes. Respiratory: Negative for: asthma, COPD, current cough, pneumonia within 6 weeks and obstructive sleep apnea. C (more content not included)... Normal [facility] 09-07-2023 CNPN Telephone (UROLAG) CURTIS GUERRIER ([id number]) 1950 M Date Time Provider Department 09/07/23 CURTIS TINOCO UROINOG During your visit today, we recorded the following information about you: Curtis Tinoco MD 09/07/2023 8:06 AM Signed Nadia Wilkerson reviewed his chart and imaging. Patient had a left ESWL in 2019 and was safely able to come off his Eliquis for 3 days and aspirin for 7 days prior to the left ESWL It appears based on follow-up recent CT that the left ESWL was successful He now has a 5 to 6 mm right renal stone He has the option of following this conservatively or we could treat it with right ESWL. Cherri -we would still need clearance for him to come off aspirin for 1 week and Eliquis for 3 days We can arrange surgery and I can meet him prior to surgery or he can arrange an office appointment to discuss Cherri Grimes 09/07/2023 2:07 PM Signed Spoke with pt. He did not go to ER last night and is not in pain today. Surgery planned for 09/15/23 as long as we can get clearance soon. Otherwise, surgery will be 09/22/23. Pt declined OV prior. Cherri Grimes Allergies As of Date: 09/07/2023 Noted Allergy Reaction IV CONTRAST (IODINE) 06/04/2019 18 - Angioedema Comments: IV contrast 06/01/2019 LIPITOR (ATORVASTATIN CALCIUM) 03/06/2007 Comments: myalgia LOVASTATIN 03/06/2007 Comments: myalgia TUYGHCH-YBU-RYM REDUCTASE INHIBIT*04/05/2011 14 - Other: See Comments 17 - Myalgia Comments: sore joints and muscles Date Reviewed: 08/24/2023 Reviewed by: Shania Cuenca LPN - Fully Assessed Reason for Visit: Schedule Surgery [1330] Appointment [186] Prescriptions as of 09/07/2023 - tamsulosin (FLOMAX) 0.4 mg Take 1 capsule by mouth daily at bedtime. Patient should start on September 05, 2023. - omeprazole (PRILOSEC) 20 mg capsule Take 1 capsule by mouth once daily. - losartan (COZAAR) 100 mg tablet Take 1 tablet by mouth once daily. - sildenafil (VIAGRA) 50 mg tablet Take 1 tablet by mouth as needed. - rosuvastatin (CRESTOR) 40 mg tablet Take 1 tablet by mouth daily at bedtime. - metoprolol tartrate, short acting, (LOPRESSOR) 50 mg tablet Take 1 tablet by mouth two times a day. - albuterol HFA (PROVENTIL HFA, VENTOLIN HFA) 90 mcg/actuation inhaler Inhale 2 Puffs as instructed every 6 hours as needed for wheezing/shortness of breath. - apixaban (ELIQUIS) 5 mg tab(s) Take 1 tablet by mouth twice daily. - acetaminophen (TYLENOL ORAL) Take by mouth as needed. - amLODIPine (NORVASC) 2.5 mg tablet Take 1 tablet by mouth once daily. Per Dr. Dietz - aspirin 81 mg chewable tablet Take 1 tablet by mouth once daily. - therapeutic multivitamin (THERA VITAMIN) tablet Take 1 tablet by mouth daily with breakfast. Meds Comments as of 11/08/2014: Advil as needed. 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] 06/26/2012 Hyperlipidemia with target LDL less than 100 [E*04/17/2013 History of kidney stones [Z87.442] 06/18/2013 Elevated PSA [R97.20] 06/18/2013 11/11/2021 BPH (benign prostatic hypertrophy) with urinary*10/10/2013 Diverticulitis of colon [K57.32] 05/20/2014 07/18/2018 GERD (gastroesophageal reflux disease) [K21.9] 05/20/2014 Abdominal pain, acute, right upper quadrant [R1*11/08/2014 12/04/2015 Presence of drug coated stent in LAD coronary a*05/05/2015 Obesity (BMI 30-39.9) [E66.9] 10/15/2015 LLQ pain [R10.32] 11/20/2015 12/04/2015 Atherosclerosis of [place] coronary artery with *11/08/2016 05/04/2017 Lipid disorder [E78.9] 11/08/2016 Atelectasis [J98.11] 11/12/2016 07/18/2018 Postprocedural hypotension [I95.81] 11/12/2016 11/14/2016 Pain, postoperative, acute [G89.18] 11/12/2016 05/04/2017 Stress hyperglycemia [R73.9] 11/13/2016 11/15/2016 SUMMARY 11/15/2016 11/17/2022 Paroxysmal A-fib (HCC) [I48.0] 11/20/2016 05/04/2017 ASHD (arteriosclerotic heart disease) [I25.10] 05/04/2017 S/P CABG x 4 [Z95.1] 05/04/2017 Plantar fasciitis of right foot [M72.2] 12/02/2017 07/18/2018 Family history of prostate cancer [Z80.42] 07/18/2018 Osteoarthritis of spine with radiculopathy, cer*07/18/2018 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] 09/20/2019 11/17/2022 Lumbar radiculopathy [M54.16] 09/20/2019 Shoulder impingement syndrome, right [M75.41] 01/02/2020 11/17/2022 Shoulder impingement syndrome, left [M75.42] 01/02/2020 11/17/2022 Paroxysmal atrial fibrillation (HCC) [I48.0] 10/10/2020 Squamous cell skin cancer [C44.92] 05/13/2021 11/17/2022 History of squamous cell carcinoma [Z85.89] 11/17/2022 Encounter Status:Closed by Rojelio TINOCO (more content not included)... Normal [facility] US KIDNEY/BLADDERon 09-02-19 24 US KIDNEY/BLADDER * * *Final Report* * * DATE OF EXAM: Sep 02 2023 8:52AM [facility] 1055 - US KIDNEY/BLADDER / PROCEDURE REASON: Kidney stone on right side * * * * Physician Interpretation * * * * EXAMINATION: RENAL ULTRASOUND CLINICAL HISTORY: Right nephrolithiasis TECHNIQUE: Sonography of the kidneys and urinary bladder was performed. Images were obtained and stored in a permanent archive. MQ: UR_1 COMPARISON: Renal ultrasound 11/12/2019, CT flank 08/04/2023 RESULT: Right Kidney: -Renal length: 10.0 cm -Parenchyma: Normal parenchymal echogenicity. Normal parenchymal thickness. -Collecting system: No hydronephrosis. -Calculus: 1.1 cm nonobstructing calculus in the upper pole. -Lesion: None. Left Kidney: -Renal length: 10.0 cm -Parenchyma: Normal parenchymal echogenicity. Normal parenchymal thickness. -Collecting system: No hydronephrosis. -Calculus: No echogenic, shadowing calculus. -Lesion: None. Bladder: Partially distended incompletely evaluated. IMPRESSION: 1.1 cm nonobstructing right renal calculus. No hydronephrosis. 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 Service Operator: [facility] Transcribe Date/Time: Sep 05 2023 6:06P Dictated by : CASE ZARAGOZA MD This examination was interpreted and the report reviewed and electronically signed by: CASE ZARAGOZA MD on Sep 05 2023 6:07PM EST [id number] Normal [facility] XR ABDOMEN 1V SUPINEon 09-01 XR ABDOMEN 1V SUPINE * * *Final Report* * * DATE OF EXAM: Sep 02 2023 8:04AM [id number] [id number] - XR ABDOMEN 1V SUPINE / PROCEDURE REASON: Kidney stone on right side * * * * Physician Interpretation * * * * ABDOMEN, 1 VIEW 09/02/2023 labeled 0740 CLINICAL INFORMATION: Kidney stone on right side TECHNIQUE: Supine frontal view, 2 image(s) COMPARISON: Same day renal ultrasound. CT flank, 08/04/2023. RESULT: 7 mm right upper pole stone. No other radiodense stones. No dilated bowel. Right lower quadrant mesh herniorrhaphy tacks. IMPRESSION: Right upper pole nephrolithiasis. 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 Service Operator: [facility] Transcribe Date/Time: Sep 06 2023 8:10P Dictated by : LONG MURRIETA MD This examination was interpreted and the report reviewed and electronically signed by: LONG MURRIETA MD on Sep 06 2023 8:11PM EST [id number] Normal [facility] CNOVon 08-24-2023 CNOV Office Visit ([facility] ) CURTIS GUERRIER ([id number]) 1950 M Date Time Provider Department 08/24/23 7:30 AM LEIGHTON WARD DERMCC During your visit today, we recorded the following information about you: Leighton Ward MD 08/24/2023 7:52 AM Signed Patient returns for follow up skin check Last visit was 6 months ago. 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 04/20/2021 Family History: no NEW COMPLAINTS: no new areas MEDICAL HX: Kidney stone PHYSICAL EXAM: The patient is pleasant, oriented x 3, in no acute distress. Exam performed of the scalp, face, neck, chest, back, abdomen, arms, legs, and buttock. Significant findings noted below, otherwise no suspicious lesions noted at this time. Arms and Legs, Photodistributed, Scalp, Trunk Findings as follows: Abdomen (Lower Torso, Anterior), Chest (Upper Torso, Anterior), Head, Left Arm, Left Leg, Neck, Right Arm, Right Leg, Torso - Posterior (Back) Diffusely scattered reed macules and patches on sun exposed areas. Left Parietal Scalp 4 x 4 bluish hernandez macule IMPRESSION/PLAN: Skin exam, screening for cancer (4) Scalp; Trunk; Photodistributed; Arms and Legs The nature of sun-induced photo-aging and skin cancers is discussed. Sun avoidance, protective clothing, and the use of 30-SPF or higher sunscreens is advised. Must be used every 2-3 hours when in the sun continuously. Patient is instructed to perform regular self exams. Observe for changing, symptomatic, or new skin lesions and seek care with the patient's primary care provider or with dermatology if any lesions of concern are noted Hx of nonmelanoma skin cancer Diffuse photodamage of skin (9) Chest (Upper Torso, Anterior); Abdomen (Lower Torso, Anterior); Torso - Posterior (Back); Head; Left Arm; Right Arm; Left Leg; Right Leg; Neck Diffuse photodamage of skin Sun protection and avoidance discussed with patient Blue nevus Left Parietal Scalp Continue to monitor FOLLOW UP: 6 month(s).skin check The documentation for this note was completed by Shania Cuenca LPN acting as scribe for Leighton Ward MD. August 24, 2023 7:26 AM. The HPI, PMH, EXAM, Findings/plan that were documented by my electrician's assistant, who was scribing during the encounter, were confirmed by me and I agree with the content of these sections. I have made any required additions or deletions to the HPI/PFSH/exam/findings/plan as needed. The physical exam and any procedures were performed by me, unless otherwise noted. Leighton Ward MD Medical Decision Making: Problems: Low: 2+ self-limited or minor problems Risk: Low: Low risk from testing/treatment Medical Decision Making Level: 3 - Low Allergies As of Date: 08/24/2023 Noted Allergy Reaction IV CONTRAST (IODINE) 06/04/2019 18 - Angioedema Comments: IV contrast 06/01/2019 LIPITOR (ATORVASTATIN CALCIUM) 03/06/2007 Comments: myalgia LOVASTATIN 03/06/2007 Comments: myalgia [id number] REDUCTASE INHIBIT*04/05/2011 14 - Other: See Comments 17 - Myalgia Comments: sore joints and muscles Date Reviewed: 08/24/2023 Reviewed by: Shania Cuenca LPN - Fully Assessed Reason for Visit: Skin Check [1179] Primary Visit Diagnosis:Skin exam, screening for cancer [Z12.83] Other Visit Diagnoses:Hx of nonmelanoma skin cancer [Z85.828] Diffuse photodamage of skin [L57.8] Blue nevus [D23.9] Prescriptions as of 08/24/2023 - tamsulosin (FLOMAX) 0.4 mg Take 1 capsule by mouth daily at bedtime. Patient should start on September 05, 2023. - omeprazole (PRILOSEC) 20 mg capsule Take 1 capsule by mouth once daily. - losartan (COZAAR) 100 mg tablet Take 1 tablet by mouth once daily. - sildenafil (VIAGRA) 50 mg tablet Take 1 tablet by mouth as needed. - rosuvastatin (CRESTOR) 40 mg tablet Take 1 tablet by mouth daily at bedtime. - metoprolol tartrate, short acting, (LOPRESSOR) 50 mg tablet Take 1 tablet by mouth two times a day. - albuterol HFA (PROVENTIL HFA, VENTOLIN HFA) 90 mcg/actuation inhaler Inhale 2 Puffs as instructed every 6 hours as needed for wheezing/shortness of breath. - apixaban (ELIQUIS) 5 mg tab(s) Take 1 tablet by mouth twice daily. - acetaminophen (TYLENOL ORAL) Take by mouth as needed. - amLODIPine (NORVASC) 2.5 mg tablet Take 1 tablet by mouth once daily. Per Dr. Dietz - aspirin 81 mg chewable tablet Take 1 tablet by mouth once daily. - therapeutic multivitamin (THERA VITAMIN) tablet Take 1 tablet by mouth daily with breakfast. Meds Comments as of 11/08/2014: Advil as needed. Heather Odonnell Ma Problem List As Of Date 08/24/2023 Noted Resolved Essential hypertension, benign [I10] Sciatica [M54.30] 03/06/2007 12/04/2015 Anal fissure [K60.2] 11/04/2008 12/04/2015 Hearing loss [H91.90] 01/12/2010 Hematuria [R31.9] 05/23/2012 (more content not included)... Normal [facility] 08-23-2023 CNPN Telephone (UROLWS) CURTIS GUERRIER ([id number]) 1950 M Date Time Provider Department 08/23/23 ROCK BALDWIN During your visit today, we recorded the following information about you: Rock Baldwin PA-C 08/23/2023 8:50 AM Signed Please let patient know I spoke with Dr. Tinoco at [facility] and he would like him to have a KUB and Renal US done now and then will review those. He says his office appt wait is almost 3-4 mo, which he needs so schedule it, but he says his OR schedule is more flexible, so he recommend continued follow- up with me, but if stone becomes obstructed we just need to let him know and he can schedule urgent stone removal surgery or Lithotripsy. Orders are in from imaging and van do them this week Rock Baldwin, [place], [place], Vangie Jewell LPN 08/23/2023 9:03 AM Signed Spoke with patient message relayed, patient voiced understanding regarding scheduling the US, KUB and appt with Dr. Tinoco. All questions answered. Patient told he can also follow up with Rock Baldwin as needed. Allergies As of Date: 08/23/2023 Noted Allergy Reaction IV CONTRAST (IODINE) 06/04/2019 18 - Angioedema Comments: IV contrast 06/01/2019 LIPITOR (ATORVASTATIN CALCIUM) 03/06/2007 Comments: myalgia LOVASTATIN 03/06/2007 Comments: myalgia [id number] REDUCTASE INHIBIT*04/05/2011 14 - Other: See Comments 17 - Myalgia Comments: sore joints and muscles Date Reviewed: 08/17/2023 Reviewed by: Ena Sabillon, RN - Fully Assessed Reason for Visit: Orders [681] Patient Update [1234] Primary Visit Diagnosis:Kidney stone on right side [N20.0] Order(s):XR ABDOMEN 1V SUPINE [[id number]] Order #: [id number] FUTURE KIDNEY/BLADDER [[id number]] Order #: [id number] FUTURE Prescriptions as of 08/23/2023 - tamsulosin (FLOMAX) 0.4 mg Take 1 capsule by mouth daily at bedtime. Patient should start on September 05, 2023. - omeprazole (PRILOSEC) 20 mg capsule Take 1 capsule by mouth once daily. - losartan (COZAAR) 100 mg tablet Take 1 tablet by mouth once daily. - sildenafil (VIAGRA) 50 mg tablet Take 1 tablet by mouth as needed. - rosuvastatin (CRESTOR) 40 mg tablet Take 1 tablet by mouth daily at bedtime. - metoprolol tartrate, short acting, (LOPRESSOR) 50 mg tablet Take 1 tablet by mouth two times a day. - albuterol HFA (PROVENTIL HFA, VENTOLIN HFA) 90 mcg/actuation inhaler Inhale 2 Puffs as instructed every 6 hours as needed for wheezing/shortness of breath. - apixaban (ELIQUIS) 5 mg tab(s) Take 1 tablet by mouth twice daily. - acetaminophen (TYLENOL ORAL) Take by mouth as needed. - amLODIPine (NORVASC) 2.5 mg tablet Take 1 tablet by mouth once daily. Per Dr. Dietz - aspirin 81 mg chewable tablet Take 1 tablet by mouth once daily. - therapeutic multivitamin (THERA VITAMIN) tablet Take 1 tablet by mouth daily with breakfast. Meds Comments as of 11/08/2014: Advil as needed. 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] 06/26/2012 Hyperlipidemia with target LDL less than 100 [E*04/17/2013 History of kidney stones [Z87.442] 06/18/2013 Elevated PSA [R97.20] 06/18/2013 11/11/2021 BPH (benign prostatic hypertrophy) with urinary*10/10/2013 Diverticulitis of colon [K57.32] 05/20/2014 07/18/2018 GERD (gastroesophageal reflux disease) [K21.9] 05/20/2014 Abdominal pain, acute, right upper quadrant [R1*11/08/2014 12/04/2015 Presence of drug coated stent in LAD coronary a*05/05/2015 Obesity (BMI 30-39.9) [E66.9] 10/15/2015 LLQ pain [R10.32] 11/20/2015 12/04/2015 Atherosclerosis of [place] coronary artery with *11/08/2016 05/04/2017 Lipid disorder [E78.9] 11/08/2016 Atelectasis [J98.11] 11/12/2016 07/18/2018 Postprocedural hypotension [I95.81] 11/12/2016 11/14/2016 Pain, postoperative, acute [G89.18] 11/12/2016 05/04/2017 Stress hyperglycemia [R73.9] 11/13/2016 11/15/2016 SUMMARY 11/15/2016 11/17/2022 Paroxysmal A-fib (HCC) [I48.0] 11/20/2016 05/04/2017 ASHD (arteriosclerotic heart disease) [I25.10] 05/04/2017 S/P CABG x 4 [Z95.1] 05/04/2017 Plantar fasciitis of right foot [M72.2] 12/02/2017 07/18/2018 Family history of prostate cancer [Z80.42] 07/18/2018 Osteoarthritis of spine with radiculopathy, cer*07/18/2018 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 Normal [facility] CNOVon 08-17-2023 CNOV Office Visit (UROLST ) CURTIS GUERRIER ([id number]) 1950 M Date Time Provider Department 08/17/23 8:30 AM ROCK BALDWIN UROLST During your visit today, we recorded the following information about you: Ena Sabillon, SOULEYMANE 08/17/2023 9:03 AM Signed PVR = 0 ML Rock Baldwin PA-C 08/17/2023 9:34 AM Signed > Continue Flomax daily for 2 months > Get Renal US in 2-3 weeks > Consult requested with Dr. Tinoco > Strainer given if he hac collect stone Rock Baldwin PA-C 08/17/2023 2:57 PM Signed [facility] NEW PATIENT CLINIC NOTE SERVICE DATE: August 17, 2023 NAME: Curtis Guerrier CHIEF COMPLAINT: Nephrolithiasis HISTORY OF PRESENT ILLNESS: Curtis Guerrier is a 73 year old male an established patient following up for Nephrolithiasis The patient reports having new CT Flank imaging showing a non-obstructing stone on 4-5 mm on in right kidney Has been on Flomax before when he had a left side stone in 2019, his is not certain if he passed the stone or not , but less pressure and no flank pain Recommended continue Flomax and strain urine, he ended having a lithotripsy for the right side , and would like to establish with a staff Urologist So if he needs this again he is can just follow-up, I sent request message for consult with Dr. Tinoco Refilled the Flomax and gave him a strainer x 2, will also get a new Renal US in the next 2-3 weeks to see if he has passed it LUTS: DYSURIA: no URGENCY: Yes FREQUENCY:4 per day NOCTURIA: 1 per night STRAINING TO VOID: No EMPTIES COMPLETELY: Yes UTI: No GROSS HEMATURIA: yes UA DIPSTICK POSITIVE ONLY: no Other symptoms: LABS: PSA (ng/mL) Date Value 05/22/2019 1.42 08/22/2018 1.33 09/29/2017 1.48 PSA Screening (ng/mL) Date Value 11/09/2022 1.29 11/12/2021 1.26 10/11/2020 1.12 Testosterone (ng/dL) Date Value 05/13/2021 194 10/11/2020 185 10/11/2012 381 Hematocrit (%) Date Value 08/04/2023 46.9 11/09/2022 44.2 11/12/2021 43.9 05/13/2021 45.7 10/11/2020 49.0 04/07/2020 44.5 PSA (ng/mL) Date Value 05/22/2019 1.42 08/22/2018 1.33 09/29/2017 1.48 PSA Screening (ng/mL) Date Value 11/09/2022 1.29 11/12/2021 1.26 10/11/2020 1.12 Creatinine Date Value Ref Range Status 08/04/2023 0.99 0.73 - 1.22 mg/dL Final 11/09/2022 0.97 0.73 - 1.22 mg/dL Final 11/12/2021 0.85 0.73 - 1.22 mg/dL Final MEDICATIONS: omeprazole (PRILOSEC) 20 mg capsule Take 1 capsule by mouth once daily. losartan (COZAAR) 100 mg tablet Take 1 tablet by mouth once daily. sildenafil (VIAGRA) 50 mg tablet Take 1 tablet by mouth as needed. rosuvastatin (CRESTOR) 40 mg tablet Take 1 tablet by mouth daily at bedtime. metoprolol tartrate, short acting, (LOPRESSOR) 50 mg tablet Take 1 tablet by mouth two times a day. albuterol HFA (PROVENTIL HFA, VENTOLIN HFA) 90 mcg/actuation inhaler Inhale 2 Puffs as instructed every 6 hours as needed for wheezing/shortness of breath. apixaban (ELIQUIS) 5 mg tab(s) Take 1 tablet by mouth twice daily. acetaminophen (TYLENOL ORAL) Take by mouth as needed. amLODIPine (NORVASC) 2.5 mg tablet Take 1 tablet by mouth once daily. Per Dr. Dietz aspirin 81 mg chewable tablet Take 1 tablet by mouth once daily. therapeutic multivitamin (THERA VITAMIN) tablet Take 1 tablet by mouth daily with breakfast. [START ON 09/05/2023] tamsulosin (FLOMAX) 0.4 mg Take 1 capsule by mouth daily at bedtime. Patient should start on September 05, 2023. 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 ENMT: Negative CARDIOVASCULAR:NO CHEST PAIN, PALPITATIONS, ANKLE EDEMA RESPIRATORY: No chronic cough, wheezing, dyspnea, hemoptysis. GENITOURINARY: SEE HPI MUSCULOSKELETAL:NO CHRONIC BACK PAIN, ARTHRITIS, CHRONIC NECK PAIN SKIN: NO VARICOSE VEINS, RASH, ABNORMAL ITCHING HEME/LYMPH/IMMUNE:Negative for prolonged bleeding, bruising easily or swollen nodes NEUROLOGICAL: NO HEADACHES, NUMBNESS, SEIZURES, STROKE DIABETES: N (more content not included)... Normal [facility] UA DIP, URINE (POC)on 2023 BILIRUBIN UA (POCT) Negative Negative [facility] CLARITY UA (POCT) Clear [facility] COLOR UA (POCT) Dark yellow [facility] d [facility] GLUCOSE UA (POCT) Negative Negative mg/dL [place] Hemoglobin Ql (U) Negative Negative [facility] Interpretation and review of laboratory results Abnormal [place] KETONE UA (POCT) Negative Negative mg/dL [place] LEUKOCYTES UA (POCT) Trace Abnormal Negative [facility] NITRITE UA (POCT) Negative Negative [facility] PH UA (POCT) 7.0 4.5 - 8.0 [place] Protein Ql (U) Negative Negative mg/dL [place] SPECIFIC GRAVITY UA (POCT) 1.020 1.005 - 1.030 [place] UROBILINOGEN UA (POCT) 0.2 Normal E.U./dL [place] Location:[facility], [address] [address], [place], [address] [facility] POINT OF CARE [place] [facility] 08-05-2023 CNPN Telephone (FAMPWS) CURTIS GUERRIER ([id number]) 1950 M Date Time Provider Department 08/05/23 JAIR FIELDS During your visit today, we recorded the following information about you: Jair Fields MD 08/05/2023 9:[address] AM S[address] Patient's CT scan confirms 3 x 5 mm nonobstructing stone in his right kidney. No stones in the ureter or bladder. No fluid backing up into kidneys. With persistent pain without obstructing stone, would recommend referral to urology to discuss treatment options. Continue flomax and push PO fluids. Karl Hallman LPN 08/05/2023 10:34 AM Signed Pt notified. He verbalized understanding. Schedulers please assist pt with scheduling Urology appt. Karl Hallman LPN Allergies As of Date: 08/05/2023 Noted Allergy Reaction IV CONTRAST (IODINE) 06/04/2019 18 - Angioedema Comments: IV contrast 06/01/2019 LIPITOR (ATORVASTATIN CALCIUM) 03/06/2007 Comments: myalgia LOVASTATIN 03/06/2007 Comments: myalgia [id number] REDUCTASE INHIBIT*04/05/2011 14 - Other: See Comments 17 - Myalgia Comments: sore joints and muscles Date Reviewed: 08/04/2023 Reviewed by: Judi Medina LPN - Fully Assessed Reason for Visit: Results [95] Primary Visit Diagnosis:Kidney stone on right side [N20.0] Other Visit Diagnosis:Flank pain [R10.9] Order(s):CONSULT TO UROLOGY [9041] Order #: [id number]: 1 FUTURE Prescriptions as of 09/22/2023 - tamsulosin (FLOMAX) 0.4 mg Take 1 capsule by mouth daily at bedtime. Patient should start on September 05, 2023. - omeprazole (PRILOSEC) 20 mg capsule Take 1 capsule by mouth once daily. - losartan (COZAAR) 100 mg tablet Take 1 tablet by mouth once daily. - sildenafil (VIAGRA) 50 mg tablet Take 1 tablet by mouth as needed. - rosuvastatin (CRESTOR) 40 mg tablet Take 1 tablet by mouth daily at bedtime. - metoprolol tartrate, short acting, (LOPRESSOR) 50 mg tablet Take 1 tablet by mouth two times a day. - albuterol HFA (PROVENTIL HFA, VENTOLIN HFA) 90 mcg/actuation inhaler Inhale 2 Puffs as instructed every 6 hours as needed for wheezing/shortness of breath. - apixaban (ELIQUIS) 5 mg tab(s) Take 1 tablet by mouth twice daily. - acetaminophen (TYLENOL ORAL) Take by mouth as needed. - amLODIPine (NORVASC) 2.5 mg tablet Take 1 tablet by mouth once daily. Per Dr. Dietz - aspirin 81 mg chewable tablet Take 1 tablet by mouth once daily. - therapeutic multivitamin (THERA VITAMIN) tablet Take 1 tablet by mouth daily with breakfast. Meds Comments as of 11/08/2014: Advil as needed. 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] 06/26/2012 Hyperlipidemia with target LDL less than 100 [E*04/17/2013 History of kidney stones [Z87.442] 06/18/2013 Elevated PSA [R97.20] 06/18/2013 11/11/2021 BPH (benign prostatic hypertrophy) with urinary*10/10/2013 Diverticulitis of colon [K57.32] 05/20/2014 07/18/2018 GERD (gastroesophageal reflux disease) [K21.9] 05/20/2014 Abdominal pain, acute, right upper quadrant [R1*11/08/2014 12/04/2015 Presence of drug coated stent in LAD coronary a*05/05/2015 Obesity (BMI 30-39.9) [E66.9] 10/15/2015 LLQ pain [R10.32] 11/20/2015 12/04/2015 Atherosclerosis of [place] coronary artery with *11/08/2016 05/04/2017 Lipid disorder [E78.9] 11/08/2016 Atelectasis [J98.11] 11/12/2016 07/18/2018 Postprocedural hypotension [I95.81] 11/12/2016 11/14/2016 Pain, postoperative, acute [G89.18] 11/12/2016 05/04/2017 Stress hyperglycemia [R73.9] 11/13/2016 11/15/2016 SUMMARY 11/15/2016 11/17/2022 Paroxysmal A-fib (HCC) [I48.0] 11/20/2016 05/04/2017 ASHD (arteriosclerotic heart disease) [I25.10] 05/04/2017 S/P CABG x 4 [Z95.1] 05/04/2017 Plantar fasciitis of right foot [M72.2] 12/02/2017 07/18/2018 Family history of prostate cancer [Z80.42] 07/18/2018 Osteoarthritis of spine with radiculopathy, cer*07/18/2018 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] 09/20/2019 11/17/2022 Lumbar radiculopathy [M54.16] 09/20/2019 Shoulder impingement syndrome, right [M75.41] 01/02/2020 11/17/2022 Shoulder impingement syndrome, left [M75.42] 01/02/2020 11/17/2022 Paroxysmal atrial fibrillation (HCC) [I48.0] 10/10/2020 Squamous cell skin cancer [C44.92] 05/13/2021 11/17/2022 History of squamous cell carcinoma [Z85.89] 11/17/2022 Encounter Status:Closed by JAIR FIELDS on 09/22/23 Normal [facility] CBC W Auto Differential pane l (Bld)on 08-04-2023 Basophils (Bld) [#/Vol] 0.03 10*3/uL [facility] Basophils/100 WBC (Bld) 0.5 % [place] Differential cell count method Nom (Bld) Auto [place] Eosinophils (Bld) [#/Vol] 0.20 10*3/uL [facility] Eosinophils/100 WBC (Bld) 3.3 % [place] Erythrocyte distribution width (RBC) [Ratio] 12.6 % 11.5 - 15.0 % [place] Hematocrit (Bld) [Volume fraction] 46.9 % 39.0 - 51.0 % [place] Hemoglobin (Bld) [Mass/Vol] 15.4 g/dL 13.0 - 17.0 g/dL [place] Immature granulocytes (Bld) [#/Vol] [facility] [place] Immature granulocytes/100 WBC (Bld) 0.3 % [place] Lymphocytes (Bld) [#/Vol] 2.21 10*3/uL [place] Lymphocytes/100 WBC (Bld) 36.0 % [place] MCH (RBC) [Entitic mass] 31.8 pg 26.0 - 34.0 pg [place] MCHC (RBC) [Mass/Vol] 32.8 g/dL 30.5 - 36.0 g/dL [place] MCV (RBC) [Entitic vol] 96.9 fL 80.0 - 100.0 fL [place] Monocytes (Bld) [#/Vol] 0.69 10*3/uL [facility] Monocytes/100 WBC (Bld) 11.2 % [place] Neutrophils (Bld) [#/Vol] 2.99 10*3/uL [place] Neutrophils/100 WBC (Bld) 48.7 % [place] Nucleated RBC (Bld) [#/Vol] [facility] [place] Nucleated RBC/100 WBC (Bld) [Ratio] 0.0 % /100 WBC [place] Platelet mean volume (Bld) [Entitic vol] 10.2 fL 9.0 - 12.7 fL [place] Platelets (Bld) [#/Vol] 217 10*3/uL [place] RBC (Bld) [#/Vol] 4.84 10*6/uL 4.20 - 6.0 0 m/uL [place] WBC (Bld) [#/Vol] 6.14 10*3/uL [facility] Basophils (Bld) [#/Vol] 0.03 10*3/uL Normal <0.11 [facility] Comment on above: Order Comment: Speci men Type: BLOOD SPECIMENOrdering Facility: [facility] Address: [address] [place] [address] Performed By: #### 5 7021-8 ####[facility] [id number] [place] [address] [place] Basophils/100 WBC (Bld) 0.5 % Normal [facility] Comment on above: Order Comment: Speci men Type: BLOOD SPECIMENOrdering Facility: [facility] Address: [address] [place] [address] Performed By: #### 5 7021-8 ####[facility] [id number] [place] [address] [place] Differential cell count method Nom (Bld) Auto Normal [facility] Comment on above: Order Comment: Speci men Type: BLOOD SPECIMENOrdering Facility: [facility] Address: [address] [place] [address] Performed By: #### 5 7021-8 ####[facility] [id number] [place] [address] [place] Eosinophils (Bld) [#/Vol] 0.20 10*3/uL Normal <0.46 [facility] Comment on above: Order Comment: Speci men Type: BLOOD SPECIMENOrdering Facility: [facility] Address: [address] [place] [address] Performed By: #### 5 7021-8 ####[facility] [id number] [place] [address] [place] Eosinophils/100 WBC (Bld) 3.3 % Normal [facility] Comment on above: Order Comment: Speci men Type: BLOOD SPECIMENOrdering Facility: [facility] Address: [address] [place] [address] Performed By: #### 5 7021-8 ####[facility] [id number] [place] [address] [place] Erythrocyte distribution width (RBC) [Ratio] 12.6 % Normal 11.5-15.0 [facility] Comment on above: Order Comment: Speci men Type: BLOOD SPECIMENOrdering Facility: [facility] Address: [address] [place] [address] Performed By: #### 5 7021-8 ####[facility] [id number] [place] [address] [place] Hematocrit (Bld) [Volume fraction] 46.9 % Normal 39.0-51.0 [facility] Comment on above: Order Comment: Speci men Type: BLOOD SPECIMENOrdering Facility: [facility] Address: [address] [place] [address] Performed By: #### 5 7021-8 ####[facility] [id number] [place] [address] [place] Hemoglobin (Bld) [Mass/Vol] 15.4 g/dL Normal 13.0-17.0 [facility] Comment on above: Order Comment: Speci men Type: BLOOD SPECIMENOrdering Facility: [facility] Address: [address] [place] [address] Performed By: #### 5 7021-8 ####[facility] [id number] [place] [address] [place] Immature granulocytes (Bld) [#/Vol] 10*3/uL Normal <0.10 [facility] Comment on above: Order Comment: Speci men Type: BLOOD SPECIMENOrdering Facility: [facility] Address: [address] [place] [address] Performed By: #### 5 7021-8 ####[facility] [id number] [place] [address] [place] Immature granulocytes/100 WBC (Bld) 0.3 % Normal [facility] Comment on above: Order Comment: Speci men Type: BLOOD SPECIMENOrdering Facility: [facility] Address: [address] [place] [address] Performed By: #### 5 7021-8 ####[facility] [id number] [place] [address] [place] Lymphocytes (Bld) [#/Vol] 2.21 10*3/uL Normal 1.00-4.00 [facility] Comment on above: Order Comment: Speci men Type: BLOOD SPECIMENOrdering Facility: [facility] Address: [address] [place] [address] Performed By: #### 5 7021-8 ####[facility] [id number] [place] [address] [place] Lymphocytes/100 WBC (Bld) 36.0 % Normal [facility] Comment on above: Order Comment: Speci men Type: BLOOD SPECIMENOrdering Facility: [facility] Address: [address] [place] [address] Performed By: #### 5 7021-8 ####[facility] [id number] [place] [address] [place] MCH (RBC) [Entitic mass] 31.8 pg Normal 26.0-34.0 [facility] Comment on above: Order Comment: Speci men Type: BLOOD SPECIMENOrdering Facility: [facility] Address: [address] [place] [address] Performed By: #### 5 7021-8 ####[facility] [id number] [place] [address] [place] MCHC (RBC) [Mass/Vol] 32.8 g/dL Normal 30.5-36.0 [facility] Comment on above: Order Comment: Speci men Type: BLOOD SPECIMENOrdering Facility: [facility] Address: [address] [place] [address] Performed By: #### 5 7021-8 ####[facility] [id number] [place] [address] [place] MCV (RBC) [Entitic vol] 96.9 fL Normal 80.0-100.0 [facility] Comment on above: Order Comment: Speci men Type: BLOOD SPECIMENOrdering Facility: [facility] Address: [address] [place] [address] Performed By: #### 5 7021-8 ####[facility] [id number] [place] [address] [place] Monocytes (Bld) [#/Vol] 0.69 10*3/uL Normal <0.87 [facility] Comment on above: Order Comment: Speci men Type: BLOOD SPECIMENOrdering Facility: [facility] Address: [address] [place] [address] Performed By: #### 5 7021-8 ####[facility] [id number] [place] [address] [place] Monocytes/100 WBC (Bld) 11.2 % Normal [facility] Comment on above: Order Comment: Speci men Type: BLOOD SPECIMENOrdering Facility: [facility] Address: [address] [place] [address] Performed By: #### 5 7021-8 ####[facility] [id number] [place] [address] [place] Neutrophils (Bld) [#/Vol] 2.99 10*3/uL Normal 1.45-7.50 [facility] Comment on above: Order Comment: Speci men Type: BLOOD SPECIMENOrdering Facility: [facility] Address: [address] [place] [address] Performed By: #### 5 7021-8 ####[facility] [id number] [place] [address] [place] Neutrophils/100 WBC (Bld) 48.7 % Normal [facility] Comment on above: Order Comment: Speci men Type: BLOOD SPECIMENOrdering Facility: [facility] Address: [address] [place] [address] Performed By: #### 5 7021-8 ####[facility] [id number] [place] [address] [place] Nucleated RBC (Bld) [#/Vol] 10*3/uL Normal <0.01 [facility] Comment on above: Order Comment: Speci men Type: BLOOD SPECIMENOrdering Facility: [facility] Address: [address] [place] [address] Performed By: #### 5 7021-8 ####[facility] [id number] [place] [address] [place] Nucleated RBC/100 WBC (Bld) [Ratio] 0.0 /100 WBC Normal [facility] Comment on above: Order Comment: Speci men Type: BLOOD SPECIMENOrdering Facility: [facility] Address: [address] [place] [address] Performed By: #### 5 7021-8 ####[facility] [id number] [place] [address] [place] Platelet mean volume (Bld) [Entitic vol] 10.2 fL Normal 9.0-12.7 [facility] Comment on above: Order Comment: Speci men Type: BLOOD SPECIMENOrdering Facility: [facility] Address: [address] [place] [address] Performed By: #### 5 7021-8 ####[facility] [id number] [place] [address] [place] Platelets (Bld) [#/Vol] 217 10*3/uL Normal 150-400 [facility] Comment on above: Order Comment: Speci men Type: BLOOD SPECIMENOrdering Facility: [facility] Address: [address] [place] [address] Performed By: #### 5 7021-8 ####[facility] [id number] [place] [address] [place] RBC (Bld) [#/Vol] 4.84 10*6/uL Normal 4.20-6.00 [facility] Comment on above: Order Comment: Speci men Type: BLOOD SPECIMENOrdering Facility: [facility] Address: [address] [place] [address] Performed By: #### 5 7021-8 ####[facility] [id number] [address] [place] WBC (Bld) [#/Vol] 6.14 10*3/uL Normal 3.70-11.00 [facility] Comment on above: Order Comment: Speci men Type: BLOOD SPECIMENOrdering Facility: [facility] Address: [address] [place] [address] Performed By: #### 5 7021-8 ####[facility] [id number] [address] [place] CNOVon 08-04-2023 [facility] CURTIS GUERRIER ([id number]) 1950 M Date Time Provider Department 08/04/23 2:20 PM [facility] During [facility] visit today, we recorded the following information about you: Temperature Pulse Respiration Blood pressure 97.3 degrees 56/minute 18/minute 146/72 Weight 98.9 kg Jair Fields MD 08/04/2023 2:46 PM Signed Chief Complaint Patient presents with: Back Pain: Intermittent x 1 month right sided HPI Curtis Guerrier is a 73 year old male who presents here today for Above Complaints.. Patient states that he has history of kidney stones which he is usually able to pass on his own. In the last month he has been getting intermittent pain in his right flank and had anjali colored urine about 2 weeks ago which lasted a couple of days. Pain described as stabbing, up to 8/10 without radiation. Pain is worse at night than during the day. Denies exacerbating symptoms. Treating with tylenol which does take the edge off. Denies fever/chills, nausea, vomiting, abdominal pain, dysuria, frequency, urgency, hesitancy. Past medical history, appointments, medications, allergies reviewed. 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 [employer] workers comp claim Severe obesity with body mass index (BMI) of 35.0 to 35.9 and comorbidity (HCC) (HCC) Snoring no JONAH Squamous cell skin cancer 05/13/2021 Stroke (HCC) Previous Surgical History PAST SURGICAL HISTORY Procedure Laterality Date BACK SURGERY HX CABG (4) VEIN GRAFTS AND ARTERIAL GRAFT(S) 10/2016 COLON SURGERY HX COLONOSCOPY 05/28/2014 Diverticular disease- repeat in 2024 COLONOSCOPY FLX DX W/COLLJ SPEC WHEN PFRMD 02/12/2002 Colonoscopy-repeat in -2011 COLONOSCOPY FLX DX W/COLLJ SPEC WHEN PFRMD 04/26/2017 Colonoscopy ESOPHAGOGASTRODUODENOSCOPY TRANSORAL DIAGNOSTIC 04/26/2017 EGD EYE SURGERY HX FISSURECTOMY INCL SPHINCTEROTOMY WHEN PERFORMED HEART SURGERY HX HERNIA REPAIR HX LAPS COLECTOMY PRTL W/COLOPXTSTMY LW ANAST 04/14/2016 with mobilization of splenic flexure for diverticulitis PAST SURGICAL HISTORY OF 1982 lower back herniated disc PAST SURGICAL HISTORY OF 2005 low back surgery PAST SURGICAL HISTORY OF 04/04/2015 cardiac stent insertion PAST SURGICAL HISTORY OF 03/2016 colon resection REVISE MEDIAN N/CARPAL TUNNEL SURG Bilateral 06/12/2020 Bilateral carpal tunnel release RPR 1ST INGUN HRNA AGE 5 YRS/> REDUCIBLE Hernia repair, inguinal w/ mesh - right TONSILLECTOMY PRIMARY/SECONDARY Tonsillectomy Family History FAMILY HISTORY Problem Relation Age of Onset Heart Mother from CVA at age 75, CABG Hypertension Father Prostate Cancer Brother Coronary Artery Disease Brother stents other (pancreatic cancer) Sister Coronary Artery Disease Sister Coronary Artery Disease Sister Cancer Maternal Grandmother Parkinson?s Disease Maternal Grandfather Cancer Paternal Grandfather Patient Allergies ALLERGIES Allergen Reactions Iv Contrast [Iodine] Angioedema IV contrast 06/01/2019 Lipitor [Atorvastat* myalgia Lovastatin myalgia Oovrynp-Uks-Drz Red* Other: See Comments, Myalgia sore joints and muscles Current Medications Current Outpatient Medications on File Prior to Visit Medication Sig omeprazole (PRILOSEC) 20 mg capsule Take 1 capsule by mouth once daily. losartan (COZAAR) 100 mg tablet Take 1 tablet by mouth once daily. sildenafil (VIAGRA) 50 mg tablet Take 1 tablet by mouth as needed. rosuvastatin (CRESTOR) 40 mg tablet Take 1 tablet by mouth daily at bedtime. metoprolol tartrate, short acting, (LOPRESSOR) 50 mg tablet Take 1 tablet by mouth two times a day. albuterol HFA (PROVENTIL HFA, VENTOLIN HFA) 90 mcg/actuation inhaler Inhale 2 Puffs as instructed every 6 hours as needed for wheezing/shortness of breath. apixaban (ELIQUIS) 5 mg tab(s) Take 1 tablet by mouth twice daily. acetaminophen (TYLENOL ORAL) Take by mouth as needed. amLODIPine (NORVASC) 2.5 mg tablet Take 1 tablet by mouth once daily. Per Dr. Dietz aspirin 81 mg chewable tablet Take 1 tablet by mouth once daily. therapeutic multivitamin (THERA VITAMIN) tablet Take 1 tablet by mouth daily with breakfast. No current facility-administered medications on file prior to visit. (more content not included)... Normal [facility] CT Abdomen and Pelvis WO con traston 08-04-2023 IMPRESSION: Nonobstructing right kidney stone. No additional stones in the urinary tract. No hydronephrosis. Bladder wall thickening. Diverticulosis without diverticulitis. Distal sigmoid anastomosis. 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 Service Operator: BETH Transcribe Date/Time: Aug 04 2023 5:17P Dictated by : COLIN SHANNON MD This examination was interpreted and the report reviewed and electronically signed by: COLIN SHANNON MD on Aug 04 2023 5:24PM EST [facility] * * *Final Report* * * DATE OF EXAM: Aug 04 2023 5:04PM [facility] 0529 - CT FLANK WO IVCON / PROCEDURE REASON: multiple diagnoses * * * * Physician Interpretation * * * * EXAMINATION: CT ABDOMEN AND PELVIS WITHOUT IV CONTRAST (Renal stone protocol) CT FLANK WO IVCON HISTORY: Flank pain Gross hematuria . TECHNIQUE: Non-IV contrast imaging of the abdomen and pelvis was performed using standard technique, scanning from just above the dome of the diaphragm to the symphysis pubis. Unenhanced imaging is limited for the evaluation of some intra-abdominal and pelvic pathology. M: CTAPWO_3 CT Radiation dose: Integrated Dose-length product (DLP) for this visit = 555.65 mGy*cm. CT Dose Reduction Employed: Automatic exposure correction (AEC). COMPARISON: 2016 CT abdomen/pelvis RESULT: Abdomen / Pelvis: Kidneys/ureters/bladder/pros tello: 3 x 5 mm nonobstructing stone upper pole right kidney. No ureteral or bladder stones. No hydronephrosis. Bladder wall thickening. Benign intramural fat and anterior bladder wall. Coarse prostate calcifications. No mass or hydronephrosis. Liver: No mass. _ Biliary: No bile duct dilation. Spleen: No mass. No splenomegaly. Pancreas: No mass or duct dilation. Adrenals: No mass. GI tract: No dilation or wall thickening. Diverticulosis without diverticulitis. Distal sigmoid anastomosis. Normal appendix. Lymph nodes: No abdominal or pelvic lymphadenopathy. Mesentery/Peritoneum: No ascites or mass. Retroperitoneum: No mass. Vasculature: No abdominal aortic or iliac artery aneurysm. Pelvis: No mass, ascites or fluid collection. Bones/Soft Tissues: No significant finding. Postoperative changes of right inguinal hernia repair with mesh. Lower thorax: Left lower lobe scarring and atelectasis. Ambulatory Care Coordinator (topogram) images: No additional findings. [facility] Provider, Jonna Maxwell [facility] - 08/04/2023 * * *Final Report* * * DATE OF EXAM: Aug 04 2023 5:04PM [facility] 0529 - CT FLANK WO IVCON / PROCEDURE REASON: multiple diagnoses * * * * Physician Interpretation * * * * EXAMINATION: CT ABDOMEN AND PELVIS WITHOUT IV CONTRAST (Renal stone protocol) CT FLANK WO IVCON HISTORY: Flank pain Gross hematuria . TECHNIQUE: Non-IV contrast imaging of the abdomen and pelvis was performed using standard technique, scanning from just above the dome of the diaphragm to the symphysis pubis. Unenhanced imaging is limited for the evaluation of some intra-abdominal and pelvic pathology. M: CTAPWO_3 CT Radiation dose: Integrated Dose-length product (DLP) for this visit = 555.65 mGy*cm. CT Dose Reduction Employed: Automatic exposure correction (AEC). COMPARISON: 2016 CT abdomen/pelvis RESULT: Abdomen / Pelvis: Kidneys/ureters/bladder/pros tello: 3 x 5 mm nonobstructing stone upper pole right kidney. No ureteral or bladder stones. No hydronephrosis. Bladder wall thickening. Benign intramural fat and anterior bladder wall. Coarse prostate calcifications. No mass or hydronephrosis. Liver: No mass. _ Biliary: No bile duct dilation. Spleen: No mass. No splenomegaly. Pancreas: No mass or duct dilation. Adrenals: No mass. GI tract: No dilation or wall thickening. Diverticulosis without diverticulitis. Distal sigmoid anastomosis. Normal appendix. Lymph nodes: No abdominal or pelvic lymphadenopathy. Mesentery/Peritoneum: No ascites or mass. Retroperitoneum: No mass. Vasculature: No abdominal aortic or iliac artery aneurysm. Pelvis: No mass, ascites or fluid collection. Bones/Soft Tissues: No significant finding. Postoperative changes of right inguinal hernia repair with mesh. Lower thorax: Left lower lobe scarring and atelectasis. Ambulatory Care Coordinator (topogram) images: No additional findings. IMPRESSION IMPRESSION: Nonobstructing right kidney stone. No additional stones in the urinary tract. No hydronephrosis. Bladder wall thickening. Diverticulosis without diverticulitis. Distal sigmoid anastomosis. 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 Service Operator: PSCB Transcribe Date/Time: Aug 04 2023 5:17P Dictated by : COLIN SHANNON MD This examination was interpreted and the report reviewed and electronically signed by: COLIN SHANNON MD on Aug 04 2023 5:24PM EST [place] [facility] Study observation (narrative) [place] CT Abdomen and Pelvis WO con trastOrdered By: [facility] Provider on 08-04-[address] [place] [address] FLANK WO IVCONon 08-04-[address] FLANK WO IVCON * * *Final Report* * * DATE OF EXAM: Aug 04 2023 5:04PM [facility] 0529 - CT FLANK WO IVCON / PROCEDURE REASON: multiple diagnoses * * * * Physician Interpretation * * * * EXAMINATION: CT ABDOMEN AND PELVIS WITHOUT IV CONTRAST (Renal stone protocol) CT FLANK WO IVCON HISTORY: Flank pain Gross hematuria . TECHNIQUE: Non-IV contrast imaging of the abdomen and pelvis was performed using standard technique, scanning from just above the dome of the diaphragm to the symphysis pubis. Unenhanced imaging is limited for the evaluation of some intra-abdominal and pelvic pathology. M: CTAPWO_3 CT Radiation dose: Integrated Dose-length product (DLP) for this visit = 555.65 mGy*cm. CT Dose Reduction Employed: Automatic exposure correction (AEC). COMPARISON: 2016 CT abdomen/pelvis RESULT: Abdomen / Pelvis: Kidneys/ureters/bladder/pros tello: 3 x 5 mm nonobstructing stone upper pole right kidney. No ureteral or bladder stones. No hydronephrosis. Bladder wall thickening. Benign intramural fat and anterior bladder wall. Coarse prostate calcifications. No mass or hydronephrosis. Liver: No mass. _ Biliary: No bile duct dilation. Spleen: No mass. No splenomegaly. Pancreas: No mass or duct dilation. Adrenals: No mass. GI tract: No dilation or wall thickening. Diverticulosis without diverticulitis. Distal sigmoid anastomosis. Normal appendix. Lymph nodes: No abdominal or pelvic lymphadenopathy. Mesentery/Peritoneum: No ascites or mass. Retroperitoneum: No mass. Vasculature: No abdominal aortic or iliac artery aneurysm. Pelvis: No mass, ascites or fluid collection. Bones/Soft Tissues: No significant finding. Postoperative changes of right inguinal hernia repair with mesh. Lower thorax: Left lower lobe scarring and atelectasis. Ambulatory Care Coordinator (topogram) images: No additional findings. IMPRESSION: Nonobstructing right kidney stone. No additional stones in the urinary tract. No hydronephrosis. Bladder wall thickening. Diverticulosis without diverticulitis. Distal sigmoid anastomosis. 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 Service Operator: BETH Transcribe Date/Time: Aug 04 2023 5:17P Dictated by : COLIN SHANNON MD This examination was interpreted and the report reviewed and electronically signed by: COLIN SHANNON MD on Aug 04 2023 5:24PM EST [id number] Normal [facility] Comprehensive metabolic 2000 panelon 08-04-2023 Albumin [Mass/Vol] 4.2 g/dL 3.9 - 4.9 g/dL [place] ALP [Catalytic activity/Vol] 57 U/L 38 - 113 U/L [place] ALT [Catalytic activity/Vol] 17 U/L 10 - 54 U/L [place] Anion gap [Moles/Vol] 11 mmol/L 9 - 18 mmol/L [place] AST [Catalytic activity/Vol] 21 U/L 14 - 40 U/L [place] Bilirubin [Mass/Vol] 0.5 mg/dL 0.2 - 1 .3 mg/dL [place] Calcium [Mass/Vol] 9.5 mg/dL 8.5 - 10. 2 mg/dL [place] Chloride [Moles/Vol] 101 mmol/L 97 - 10 5 mmol/L [place] CO2 [Moles/Vol] 26 mmol/L 22 - 30 mmol/L [place] Creatinine [Mass/Vol] 0.99 mg/dL 0.73 - 1.22 mg/dL [place] GFR/1.73 sq M.predicted among non-blacks MDRD (S/P/Bld) [Vol rate/Area] 80 mL/min/{1.73_m2} - PINF [place] Comment on above: Estimated Glomerular Filtration Rate (eGFR) is calculated using the 2020 CKD-EPI creatinine equation. This equation utilizes serum creatinine, sex, and age as parameters. The creatinine assay has traceable calibration to isotope dilution-mass spectrometry. Refer to KDIGO guidelines for clinical interpretation. In patients with unstable renal function, e.g. those with acute kidney injury, the eGFR may not accurately reflect actual GFR. Glucose [Mass/Vol] 94 mg/dL 74 - 99 mg/dL [place] Comment on above: The [place] [employer] (ADA) provides guidance for cutoff values for fasting glucose and random glucose. The ADA defines fasting as no caloric intake for at least 8 hours. Fasting plasma glucose results between 100 to 125 mg/dL indicate increased risk for diabetes (prediabetes). Fasting plasma glucose results greater than or equal to 126 mg/dL meet the criteria for diagnosis of diabetes. In the absence of unequivocal hyperglycemia, results should be confirmed by repeat testing. In a patient with classic symptoms of hyperglycemia or hyperglycemic crisis, random plasma glucose results greater than or equal to 200 mg/dL meet the criteria for diagnosis of diabetes. Reference: Standards of Medical Care in Diabetes 2016, [place] [employer]. Diabetes Care. 2016.39(Suppl 1). Interpretation and review of laboratory results Normal [place] Potassium [Moles/Vol] 3.9 mmol/L 3.7 - 5.1 mmol/L [place] Protein [Mass/Vol] 7.0 g/dL 6.3 - 8.0 g/dL [place] Sodium [Moles/Vol] 138 mmol/L 136 - 144 mmol/L [place] Urea nitrogen [Mass/Vol] 22 mg/dL 9 - 24 mg/dL [facility] Albumin [Mass/Vol] 4.2 g/dL Normal 3.9-4.9 [facility] Comment on above: Order Comment: Speci gigi Type: BLOOD SPECIMENOrdering Facility: [facility] Address: [address] [place] [address] Performed By: #### 2 4323-8 ####[facility] [id number] [place] [address] [place] ALP [Catalytic activity/Vol] 57 U/L Normal 38-113 [facility] Comment on above: Order Comment: Sethi gigi Type: BLOOD SPECIMENOrdering Facility: [facility] Address: [address] [place] [address] Performed By: #### 2 4323-8 ####[facility] [id number] [place] [address] [place] ALT [Catalytic activity/Vol] 17 U/L Normal 10-54 [facility] Comment on above: Order Comment: Sethi men Type: BLOOD SPECIMENOrdering Facility: [facility] Address: [address] [place] [address] Performed By: #### 2 4323-8 ####[facility] [id number] [place] [address] [place] Anion gap [Moles/Vol] 11 mmol/L Normal 9-18 [facility] Comment on above: Order Comment: Speci men Type: BLOOD SPECIMENOrdering Facility: [facility] Address: [address] [place] [address] Performed By: #### 2 4323-8 ####[facility] [id number] [place] [address] [place] AST [Catalytic activity/Vol] 21 U/L Normal 14-40 [facility] Comment on above: Order Comment: Speci men Type: BLOOD SPECIMENOrdering Facility: [facility] Address: [address] [place] [address] Performed By: #### 2 4323-8 ####[facility] [id number] [place] [address] [place] Bilirubin [Mass/Vol] 0.5 mg/dL Normal 0.2-1.3 [facility] Comment on above: Order Comment: Speci men Type: BLOOD SPECIMENOrdering Facility: [facility] Address: [address] [place] [address] Performed By: #### 2 4323-8 ####[facility] [id number] [place] [address] [place] Calcium [Mass/Vol] 9.5 mg/dL Normal 8.5-10.2 [facility] Comment on above: Order Comment: Speci men Type: BLOOD SPECIMENOrdering Facility: [facility] Address: [address] [place] [address] Performed By: #### 2 4323-8 ####[facility] [id number] [place] [address] [place] Chloride [Moles/Vol] 101 mmol/L Normal 97-105 [facility] Comment on above: Order Comment: Speci men Type: BLOOD SPECIMENOrdering Facility: [facility] Address: [address] [place] [address] Performed By: #### 2 4323-8 ####[facility] [id number] [place] [address] [place] CO2 [Moles/Vol] 26 mmol/L Normal 22-30 [facility] Comment on above: Order Comment: Speci men Type: BLOOD SPECIMENOrdering Facility: [facility] Address: [address] [place] [address] Performed By: #### 2 4323-8 ####[facility] [id number] [place] [address] [place] Creatinine [Mass/Vol] 0.99 mg/dL Normal 0.73-1.22 [facility] Comment on above: Order Comment: Speci men Type: BLOOD SPECIMENOrdering Facility: [facility] Address: [address] [place] [address] Performed By: #### 2 4323-8 ####[facility] [id number] [place] [address] [place] Creatinine and Glomerular filtration rate.predicted panel (S/P/Bld) 80 mL/min/1.73m??? Normal >=60 [facility] Comment on above: Order Comment: Speci men Type: BLOOD SPECIMENOrdering Facility: [facility] Address: [address] [place] [address] Result Comment: Zully mated Glomerular Filtration Rate (eGFR) is calculated using the 2020 CKD-EPI creatinine equation. This equation utilizes serum creatinine, sex, and age as parameters. The creatinine assay has traceable calibration to isotope dilution-mass spectrometry. Refer to KDIGO guidelines for clinical interpretation. In patients with unstable renal function, e.g. those with acute kidney injury, the eGFR may not accurately reflect actual GFR. Performed By: #### 2 4323-8 ####[facility] [id number] [place] [address] [place] Glucose [Mass/Vol] 94 mg/dL Normal 74-99 [facility] Comment on above: Order Comment: Speci men Type: BLOOD SPECIMENOrdering Facility: [facility] Address: [address] [place] [address] Result Comment: The [place] Diabetes Association (ADA) provides guidance for cutoff values for fasting glucose and random glucose. The ADA defines fasting as no caloric intake for at least 8 hours. Fasting plasma glucose results between 100 to 125 mg/dL indicate increased risk for diabetes (prediabetes). Fasting plasma glucose results greater than or equal to 126 mg/dL meet the criteria for diagnosis of diabetes. In the absence of unequivocal hyperglycemia, results should be confirmed by repeat testing. In a patient with classic symptoms of hyperglycemia or hyperglycemic crisis, random plasma glucose results greater than or equal to 200 mg/dL meet the criteria for diagnosis of diabetes. Reference: Standards of Medical Care in Diabetes 2016, [place] [employer]. Diabetes Care. 2016.39(Suppl 1). Performed By: #### 2 4323-8 ####[facility] [id number] [place] [address] [place] Potassium [Moles/Vol] 3.9 mmol/L Normal 3.7-5.1 [facility] Comment on above: Order Comment: Juan Antonio yu Type: BLOOD SPECIMENOrdering Facility: [facility] Address: [address] [place] [address] Performed By: #### 2 4323-8 ####[facility] [id number] [place] [address] [place] Protein [Mass/Vol] 7.0 g/dL Normal 6.3-8.0 [facility] Comment on above: Order Comment: Speci men Type: BLOOD SPECIMENOrdering Facility: [facility] Address: [address] [place], [place] [address] Performed By: #### 2 4323-8 ####[facility] [id number] [place] [address] [place] Sodium [Moles/Vol] 138 mmol/L Normal 136-144 [facility] Comment on above: Order Comment: Speci men Type: BLOOD SPECIMENOrdering Facility: [facility] Address: [address] [place], [place] [address] Performed By: #### 2 4323-8 ####[facility] [id number] [place] [id number] [place] Urea nitrogen [Mass/Vol] 22 mg/dL Normal 9-24 [facility] Comment on above: Order Comment: Speci men Type: BLOOD SPECIMENOrdering Facility: [facility] Address: [address] [place], [place] [address] Performed By: #### 2 4323-8 ####[facility] [id number] [place] [address] [place] UA DIP, URINE (POC)on 2023 BILIRUBIN UA (POCT) Negative Negative [facility] CLARITY UA (POCT) Clear [facility] COLOR UA (POCT) Yellow [place] GLUCOSE UA (POCT) Negative Negative mg/dL [place] Hemoglobin Ql (U) Negative Negative [facility] Interpretation and review of laboratory results Abnormal [place] KETONE UA (POCT) Negative Negative mg/dL [place] LEUKOCYTES UA (POCT) Moderate Abnormal Negative [facility] NITRITE UA (POCT) Negative Negative [facility] PH UA (POCT) 7.0 4.5 - 8.0 [place] Protein Ql (U) Negative Negative mg/dL [place] SPECIFIC GRAVITY UA (POCT) 1.020 1.005 - 1.030 [place] UROBILINOGEN UA (POCT) 0.2 Normal E.U./dL [place] Location:[facility], [address] [place] [address], [place], [place], [id number] [place] [address] POINT OF CARE [place] XR CHEST 2V FRONTAL/LATon [place] XR Chest PA and Lateralon IMPRESSION: No acute radiographic abnormality. 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 Service Operator: BETH Transcribe Date/Time: Apr 05 2022 4:27P Dictated by : ADAM HERRERA MD This examination was interpreted and the report reviewed and electronically signed by: ADAM HERRERA MD on Apr 05 2022 4:28PM [facility] DIVISION OF RADIOLOGY * * *Final Report* * * DATE OF EXAM: Apr 05 2022 4:17PM WOX 5291 - XR CHEST 2V FRONTAL/LAT / PROCEDURE REASON: Bronchitis * * * * Physician Interpretation * * * * EXAMINATION: CHEST RADIOGRAPH (2 VIEW FRONTAL & LATERAL) CLINICAL HISTORY: Bronchitis MQ: XC2_6 EXAM DATE/TIME: 04/05/2022 4:17 PM COMPARISON: Chest x-ray dated October 11, 2020 RESULT: Lines, tubes, and devices: None. Lungs and pleura: No consolidation. No lung mass. No pleural effusion. No pneumothorax. Azygous fissure present, a normal anatomic variant. Cardiomediastinal silhouette: Stable cardiomediastinal silhouette with postsurgical changes from median sternotomy. Bones and soft tissues: Degenerative changes are present within the thoracic spine. DIVISION OF RADIOLOGY Provider, [facility] - 04/05/2022 * * *Final Report* * * DATE OF EXAM: Apr 05 2022 4:17PM WOX 5291 - XR CHEST 2V FRONTAL/LAT / PROCEDURE REASON: Bronchitis * * * * Physician Interpretation * * * * EXAMINATION: CHEST RADIOGRAPH (2 VIEW FRONTAL & LATERAL) CLINICAL HISTORY: Bronchitis MQ: XC2_6 EXAM DATE/TIME: 04/05/2022 4:17 PM COMPARISON: Chest x-ray dated October 11, 2020 RESULT: Lines, tubes, and devices: None. Lungs and pleura: No consolidation. No lung mass. No pleural effusion. No pneumothorax. Azygous fissure present, a normal anatomic variant. Cardiomediastinal silhouette: Stable cardiomediastinal silhouette with postsurgical changes from median sternotomy. Bones and soft tissues: Degenerative changes are present within the thoracic spine. IMPRESSION IMPRESSION: No acute radiographic abnormality. 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 Service Operator: BETH Transcribe Date/Time: Apr 05 2022 4:27P Dictated by : ADAM HERRERA MD This examination was interpreted and the report reviewed and electronically signed by: ADAM HERRERA MD on Apr 05 2022 4:28PM [facility] Rad[facility]narrative[facility] and LateralOrder ed By: [facility] Provider on 04-05-2022 [place] XR Chest PA and Lateralon IMPRESSION: Stable exam with chronic changes as described above and no definite acute radiographic abnormality. 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 Service Operator: BETH Transcribe Date/Time: Oct 12 2020 10:22P Dictated by : EMMANUEL SAAVEDRA MD This examination was interpreted and the report reviewed and electronically signed by: EMMANUEL SAAVEDRA MD on Oct 12 2020 10:23PM [facility] DIVISION OF RADIOLOGY * * *Final Report* * * DATE OF EXAM: Oct 11 2020 8:10AM WOX 5291 - XR CHEST 2V FRONTAL/LAT / PROCEDURE REASON: SOB (shortness of breath) * * * * Physician Interpretation * * * * EXAMINATION: CHEST RADIOGRAPH (2 VIEW FRONTAL & LATERAL) CLINICAL HISTORY: SOB (shortness of breath) MQ: XC2_6 EXAM DATE/TIME: 10/11/2020 8:10 AM COMPARISON: 11/25/2016 RESULT: Lines, tubes, and devices: None. Lungs and pleura: There is persistent retraction of the left hilum with vague crowded/atelectatic changes in the left perihilar region. There is no definite infiltrate or edema. There is an azygos lobe compatible with a normal variant. No consolidation. No lung mass. No pleural effusion. No pneumothorax. Cardiomediastinal silhouette: Stable cardiomediastinal silhouette with changes of prior median sternotomy. Bones and soft tissues: There are mild degenerative changes involving the thoracic spine. DIVISION OF RADIOLOGY Provider, Jeff Arreola [facility] - 10/12/2020 * * *Final Report* * * DATE OF EXAM: Oct 11 2020 8:10AM WOX 5291 - XR CHEST 2V FRONTAL/LAT / PROCEDURE REASON: SOB (shortness of breath) * * * * Physician Interpretation * * * * EXAMINATION: CHEST RADIOGRAPH (2 VIEW FRONTAL & LATERAL) CLINICAL HISTORY: SOB (shortness of breath) MQ: XC2_6 EXAM DATE/TIME: 10/11/2020 8:10 AM COMPARISON: 11/25/2016 RESULT: Lines, tubes, and devices: None. Lungs and pleura: There is persistent retraction of the left hilum with vague crowded/atelectatic changes in the left perihilar region. There is no definite infiltrate or edema. There is an azygos lobe compatible with a normal variant. No consolidation. No lung mass. No pleural effusion. No pneumothorax. Cardiomediastinal silhouette: Stable cardiomediastinal silhouette with changes of prior median sternotomy. Bones and soft tissues: There are mild degenerative changes involving the thoracic spine. IMPRESSION IMPRESSION: Stable exam with chronic changes as described above and no definite acute radiographic abnormality. 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 Service Operator: [facility] Transcribe Date/Time: Oct 12 2020 10:22P Dictated by : EMMANUEL SAAVEDRA MD This examination was interpreted and the report reviewed and electronically signed by: EMMANUEL SAAVERDA MD on Oct 12 2020 10:23PM [facility] XR Chest PA and LateralOrder ed By: [facility] Provider on 10-12-2020 [place] XR Chest PA and Lateralon Radiology Study observation (narrative) [place] No Panel InformationOrdered By: [facility] Provider on 04-07-2020 [place] No Panel Informationon 04-07 Radiology Study observation (narrative) [place] XR Cervical spine AP and Lat eral and obliqueon 04-07-2020 IMPRESSION: Degenerative changes with minimal anterolisthesis of C2 on C3 and C6 on C7 and narrowing of the bilateral C2-C3 through C5-C6 neural foramina. 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 Service Operator: [facility] Transcribe Date/Time: Apr 07 2020 9:57A Dictated by : ASHLEIGH MEJIA MD This examination was interpreted and the report reviewed and electronically signed by: ASHLEIGH MEJIA MD on Apr 07 2020 10:07AM [facility] DIVISION OF RADIOLOGY * * *Final Report* * * DATE OF EXAM: Apr 07 2020 9:25AM WOX 5311 - XR CERVICAL 4V AP/LAT/OBL / PROCEDURE REASON: Cervical radiculopathy * * * * Physician Interpretation * * * * HISTORY: Cervical radiculopathy . pt states since September of last year pain starts from top of both humerus down to the hands. Has no pain in the neck. no inj TECHNIQUE: XR CERVICAL 4V AP/LAT/OBL Laterality: NOT APPLICABLE Number of different views (projections): 4 COMPARISON: None available. RESULT: There is minimal anterolisthesis of C2 on C3 and C6 on C7. There are multilevel degenerative changes with disc space narrowing, marginal endplate osteophytes and facet joint hypertrophy. There is narrowing of the bilateral C2-C3 through C5-C6 neural foramina. There is no evidence of acute spinal fracture or dislocation. The prevertebral soft tissues are unremarkable. There are postoperative changes in the chest with no evidence of acute process. No other significant abnormality. DIVISION OF RADIOLOGY Provider, [facility] Maxwell [facility] - 04/07/2020 * * *Final Report* * * DATE OF EXAM: Apr 07 2020 9:25AM WOX 5311 - XR CERVICAL 4V AP/LAT/OBL / PROCEDURE REASON: Cervical radiculopathy * * * * Physician Interpretation * * * * HISTORY: Cervical radiculopathy . pt states since September of last year pain starts from top of both humerus down to the hands. Has no pain in the neck. no inj TECHNIQUE: XR CERVICAL 4V AP/LAT/OBL Laterality: NOT APPLICABLE Number of different views (projections): 4 COMPARISON: None available. RESULT: There is minimal anterolisthesis of C2 on C3 and C6 on C7. There are multilevel degenerative changes with disc space narrowing, marginal endplate osteophytes and facet joint hypertrophy. There is narrowing of the bilateral C2-C3 through C5-C6 neural foramina. There is no evidence of acute spinal fracture or dislocation. The prevertebral soft tissues are unremarkable. There are postoperative changes in the chest with no evidence of acute process. No other significant abnormality. IMPRESSION IMPRESSION: Degenerative changes with minimal anterolisthesis of C2 on C3 and C6 on C7 and narrowing of the bilateral C2-C3 through C5-C6 neural foramina. 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 Service Operator: BETH Transcribe Date/Time: Apr 07 2020 9:57A Dictated by : ASHLEIGH MEJIA MD This examination was interpreted and the report reviewed and electronically signed by: ASHLEIGH MEJIA MD on Apr 07 2020 10:07AM EST [place] XR Shoulder - left 2 Viewson 04-07-2020 IMPRESSION: Degenerative changes. Rotator cuff calcific tendinosis. 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 Service Operator: BETH Transcribe Date/Time: Apr 07 2020 9:55A Dictated by : ASHELIGH MEJIA MD This examination was interpreted and the report reviewed and electronically signed by: ASHLEIGH MEJIA MD on Apr 07 2020 10:07AM EST DIVISION OF RADIOLOGY * * *Final Report* * * DATE OF EXAM: Apr 07 2020 9:25AM WOX 5254 - XR SHOULDER 2V AP/TRUE AP LT / PROCEDURE REASON: Shoulder impingement syndrome, left * * * * Physician Interpretation * * * * HISTORY: Shoulder impingement syndrome, left . pt states since September of last year pain in both arms from top of humerus down into both hands no inj TECHNIQUE: XR SHOULDER 2V AP/TRUE AP LT Laterality: LEFT Number of different views (projections): 2 COMPARISON: None available. RESULT: There is no acute fracture or dislocation. The acromiohumeral interval is preserved. There are degenerative changes at the acromioclavicular and glenohumeral joints. There are reactive changes at the greater tuberosity of the humerus. There are foci of calcification projecting in the region of the rotator cuff tendons. There are postoperative changes in the chest with no evidence of acute process. No other significant abnormality. DIVISION OF RADIOLOGY Provider, [facility] - 04/07/2020 * * *Final Report* * * DATE OF EXAM: Apr 07 2020 9:25AM WOX 5254 - XR SHOULDER 2V AP/TRUE AP LT / PROCEDURE REASON: Shoulder impingement syndrome, left * * * * Physician Interpretation * * * * HISTORY: Shoulder impingement syndrome, left . pt states since September of last year pain in both arms from top of humerus down into both hands no inj TECHNIQUE: XR SHOULDER 2V AP/TRUE AP LT Laterality: LEFT Number of different views (projections): 2 COMPARISON: None available. RESULT: There is no acute fracture or dislocation. The acromiohumeral interval is preserved. There are degenerative changes at the acromioclavicular and glenohumeral joints. There are reactive changes at the greater tuberosity of the humerus. There are foci of calcification projecting in the region of the rotator cuff tendons. There are postoperative changes in the chest with no evidence of acute process. No other significant abnormality. IMPRESSION IMPRESSION: Degenerative changes. Rotator cuff calcific tendinosis. 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 Service Operator: BETH Transcribe Date/Time: Apr 07 2020 9:55A Dictated by : ASHLEIGH MEJIA MD This examination was interpreted and the report reviewed and electronically signed by: ASHLEIGH MEJIA MD on Apr 07 2020 10:07AM [facility] XR Shoulder - right 2 Viewso n 04-07-2020 IMPRESSION: Degenerative changes. Rotator cuff calcific tendinosis. 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 Service Operator: [facility] Transcribe Date/Time: Apr 07 2020 9:56A Dictated by : ASHLEIGH MEJIA MD This examination was interpreted and the report reviewed and electronically signed by: ASHLEIGH MEJIA MD on Apr 07 2020 10:07AM [facility] DIVISION OF RADIOLOGY * * *Final Report* * * DATE OF EXAM: Apr 07 2020 9:25AM WOX 5255 - XR SHOULDER 2V AP/TRUE AP RT / PROCEDURE REASON: Shoulder impingement syndrome, right * * * * Physician Interpretation * * * * HISTORY: Shoulder impingement syndrome, right . pt states since September of last year pain in both arms from top of humerus down into both hands no inj TECHNIQUE: XR SHOULDER 2V AP/TRUE AP RT Laterality: RIGHT Number of different views (projections): 2 COMPARISON: None available. RESULT: There is no acute fracture or dislocation. The acromiohumeral interval is preserved. There are degenerative changes at the acromioclavicular and glenohumeral joints. There are reactive changes at the greater tuberosity of the humerus. There are foci of calcification projecting in the region of the rotator cuff tendons. There are postoperative changes in the chest with no evidence of acute process. No other significant abnormality. DIVISION OF RADIOLOGY Provider, Jonna Maxwell [facility] - 04/07/2020 * * *Final Report* * * DATE OF EXAM: Apr 07 2020 9:25AM WOX 5255 - XR SHOULDER 2V AP/TRUE AP RT / PROCEDURE REASON: Shoulder impingement syndrome, right * * * * Physician Interpretation * * * * HISTORY: Shoulder impingement syndrome, right . pt states since September of last year pain in both arms from top of humerus down into both hands no inj TECHNIQUE: XR SHOULDER 2V AP/TRUE AP RT Laterality: RIGHT Number of different views (projections): 2 COMPARISON: None available. RESULT: There is no acute fracture or dislocation. The acromiohumeral interval is preserved. There are degenerative changes at the acromioclavicular and glenohumeral joints. There are reactive changes at the greater tuberosity of the humerus. There are foci of calcification projecting in the region of the rotator cuff tendons. There are postoperative changes in the chest with no evidence of acute process. No other significant abnormality. IMPRESSION IMPRESSION: Degenerative changes. Rotator cuff calcific tendinosis. 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 Service Operator: [facility] Transcribe Date/Time: Apr 07 2020 9:56A Dictated by : ASHLEIGH MEJIA MD This examination was interpreted and the report reviewed and electronically signed by: ASHLEIGH MEJIA MD on Apr 07 2020 10:07AM EST [place] No Panel Information [place] Vital Signs Date Time Vital Sign Value Performing Clinician Stefanyi jewels 07-26-2024 12:54-0400 Body mass index (BMI) [Ratio] 38.94 kg/m2 Jessica Luisa MANAGER [employer]PRODUCTION TEAM MANAGER Work Phone: [place] 07-26-2024 12:54-0400 Body weight 103.83 kg Jessica Luisa MANAGER [employer].PRODUCTION TEAM MANAGER Work Phone: [place] 07-26-2024 12:54-0400 Diastolic blood pressure 78 mm[Hg] Jessica Luisa MANAGER [employer].PRODUCTION TEAM MANAGER Work Phone: [place] 07-26-2024 12:54-0400 Heart rate 64 /min Jessica Luisa MANAGER [employer].PRODUCTION TEAM MANAGER Work Phone: [place] 07-26-2024 12:54-0400 Respiratory rate 18 /min Jessica Luisa MANAGER [employer].PRODUCTION TEAM MANAGER Work Phone: [place] 07-26-2024 12:54-0400 SaO2% (BldA) [Mass fraction] 100 % Jessica Luisa MANAGER [employer].PRODUCTION TEAM MANAGER Work Phone: [place] 07-26-2024 12:54-0400 Systolic blood pressure 158 mm[Hg] Jessica Luisa MANAGER [employer].PRODUCTION TEAM MANAGER Work Phone: [place] 06-26-2024 09:30-0400 Body mass index (BMI) [Ratio] 39.29 kg/m2 Cinthya Talat MANAGER [employer].PRODUCTION TEAM MANAGER Work Phone: [place] 06-26-2024 09:30-0400 Body weight 104.78 kg Cinthya Talat MANAGER [employer].PRODUCTION TEAM MANAGER Work Phone: [place] 06-26-2024 09:30-0400 Diastolic blood pressure 70 mm[Hg] Cinthya Talat MANAGER [employer].PRODUCTION TEAM MANAGER Work Phone: [place] 06-26-2024 09:30-0400 Heart rate 60 /min Cinthya Talat MANAGER [employer].PRODUCTION TEAM MANAGER Work Phone: [place] 06-26-2024 09:30-0400 Respiratory rate 18 /min Cinthya Talat MANAGER [employer].PRODUCTION TEAM MANAGER Work Phone: [place] 06-26-2024 09:30-0400 SaO2% (BldA) [Mass fraction] 96 % Cinthya Talat MANAGER P[employer].PRODUCTION TEAM MANAGER Work Phone: [place] 06-26-2024 09:30-0400 Systolic blood pressure 138 mm[Hg] Cinthya Talat MANAGER [employer].PRODUCTION TEAM MANAGER Work Phone: [place] 06-19-2024 11:00-0400 Diastolic blood pressure 61 mm[Hg] Nichole Newton MD Work Phone: [place] 06-19-2024 11:00-0400 Heart rate 57 /min Nichole Newton MD Work Phone: [place] 06-19-2024 11:00-0400 Respiratory rate 16 /min Nichole Newton MD Work Phone: [place] 06-19-2024 11:00-0400 SaO2% (BldA) [Mass fraction] 98 % Nichole Newton MD Work Phone: [place] 06-19-2024 11:00-0400 Systolic blood pressure 131 mm[Hg] Nichole Newton MD Work Phone: [place] 06-19-2024 09:52-0400 Body temperature 96.69 [degF] Nichole Newton MD Work Phone: [place] 06-11-2024 08:39-0400 Body height 163.3 cm Nichole Newton MD Work Phone: [place] 06-11-2024 08:39-0400 Body mass index (BMI) [Ratio] 38.61 kg/m2 Nichole Newton MD Work Phone: [place] 06-11-2024 08:39-0400 Body temperature 97.9 [degF] Nichole Newton MD Work Phone: [place] 06-11-2024 08:39-0400 Body weight 102.97 kg Nichole Newton MD Work Phone: [place] 06-11-2024 08:39-0400 Diastolic blood pressure 78 mm[Hg] Nichole Newton MD Work Phone: [place] 06-11-2024 08:39-0400 Heart rate 64 /min Nichole Newton MD Work Phone: [place] 06-11-2024 08:39-0400 Respiratory rate 14 /min Nichole Newton MD Work Phone: [place] 06-11-2024 08:39-0400 SaO2% (BldA) [Mass fraction] 98 % Nichole Newton MD Work Phone: [place] 06-11-2024 08:39-0400 Systolic blood pressure 128 mm[Hg] Nichole Newton MD Work Phone: [place] 05-30-2024 09:04-0500 Diastolic blood pressure 70 mm[Hg] Jason Cook MD Work Phone: [place] 05-30-2024 09:04-0500 Systolic blood pressure 136 mm[Hg] Jason Cook MD Work Phone: [place] 05-30-2024 08:27-0500 Body height 167.6 cm Jason Cook MD Work Phone: [place] 05-30-2024 08:27-0500 Body mass index (BMI) [Ratio] 36.96 kg/m2 Jason Cook MD Work Phone: [place] 05-30-2024 08:27-0500 Body weight 103.87 kg Jason Cook MD Work Phone: [place] 05-30-2024 08:27-0500 Heart rate 65 /min Jason Cook MD Work Phone: [place] 05-30-2024 08:27-0500 SaO2% (BldA) [Mass fraction] 98 % Jason Cook MD Work Phone: [place] 04-17-2024 10:51-0500 Body mass index (BMI) [Ratio] 37.28 kg/m2 Jason Cook MD Work Phone: [place] 04-17-2024 10:51-0500 Body weight 104.78 kg Jason Cook MD Work Phone: [place] 04-17-2024 10:51-0500 Diastolic blood pressure 76 mm[Hg] Jason Cook MD Work Phone: [place] 04-17-2024 10:51-0500 Heart rate 56 /min Jason Cook MD Work Phone: [place] 04-17-2024 10:51-0500 SaO2% (BldA) [Mass fraction] 97 % Jason Cook MD Work Phone: [place] 04-17-2024 10:51-0500 Systolic blood pressure 168 mm[Hg] Jason Cook MD Work Phone: [place] 04-16-2024 09:29-0500 Body mass index (BMI) [Ratio] 37.38 kg/m2 Josh Lynch MD Work Phone: [place] 04-16-2024 09:29-0500 Body weight 105.05 kg Josh Lynch MD Work Phone: [place] 04-16-2024 09:29-0500 Diastolic blood pressure 76 mm[Hg] Josh Lynch MD Work Phone: [place] 04-16-2024 09:29-0500 Heart rate 56 /min Josh Lynch MD Work Phone: [place] 04-16-2024 09:29-0500 SaO2% (BldA) [Mass fraction] 98 % Josh Lynch MD Work Phone: [place] 04-16-2024 09:29-0500 Systolic blood pressure 186 mm[Hg] Josh Lynch MD Work Phone: [place] 11-30-2023 08:22-0400 Body height 167.6 cm Jason Cook MD Work Phone: [place] 11-30-2023 08:22-0400 Body mass index (BMI) [Ratio] 35.02 kg/m2 Jason Cook MD Work Phone: [place] 11-30-2023 08:22-0400 Body weight 98.43 kg Jason Cook MD Work Phone: [place] 11-30-2023 08:22-0400 Diastolic blood pressure 62 mm[Hg] Jason Cook MD Work Phone: [place] 11-30-2023 08:22-0400 Heart rate 59 /min Jason Cook MD Work Phone: [place] 11-30-2023 08:22-0400 SaO2% (BldA) [Mass fraction] 99 % Jason Cook MD Work Phone: [place] 11-30-2023 08:22-0400 Systolic blood pressure 132 mm[Hg] Jason Cook MD Work Phone: [place] 10-27-2023 14:02-0400 Body mass index (BMI) [Ratio] 34.38 kg/m2 Elaina Suppan MANAGER [employer]OK[employer].PRODUCTION TEAM MANAGER Work Phone: [place] 10-27-2023 14:02-0400 Body temperature 98.01 [degF] Elaina Suppan MANAGER [employer]OK[employer].PRODUCTION TEAM MANAGER Work Phone: [place] 10-27-2023 14:02-0400 Body weight 96.62 kg Elaina Suppan MANAGER POK[employer].PRODUCTION TEAM MANAGER Work Phone: [place] 10-27-2023 14:02-0400 Diastolic blood pressure 60 mm[Hg] Elaina Suppan MANAGER [employer].PRODUCTION TEAM MANAGER Work Phone: [place] 10-27-2023 14:02-0400 SaO2% (BldA) [Mass fraction] 98 % Elaina Suppan MANAGER POK[employer].PRODUCTION TEAM MANAGER Work Phone: [place] 10-27-2023 14:02-0400 Systolic blood pressure 140 mm[Hg] Elaina Suppan MANAGER [employer]OK[employer].PRODUCTION TEAM MANAGER Work Phone: [place] 10-20-2023 13:48-0400 Body mass index (BMI) [Ratio] 34.7 kg/m2 Elaina Suppan MANAGER [employer].PRODUCTION TEAM MANAGER Work Phone: [place] 10-20-2023 13:48-0400 Body temperature 97.59 [degF] Elaina Suppan MANAGER [employer].PRODUCTION TEAM MANAGER Work Phone: [place] 10-20-2023 13:48-0400 Body weight 97.52 kg Elaina Suppan MANAGER P[employer].PRODUCTION TEAM MANAGER Work Phone: [place] 10-20-2023 13:48-0400 Diastolic blood pressure 58 mm[Hg] Elaina Suppan MANAGER [employer].PRODUCTION TEAM MANAGER Work Phone: [place] 10-20-2023 13:48-0400 Heart rate 71 /min Elaina Suppan MANAGER [employer].PRODUCTION TEAM MANAGER Work Phone: [place] 10-20-2023 13:48-0400 SaO2% (BldA) [Mass fraction] 97 % Elaina Suppan MANAGER POK[employer].PRODUCTION TEAM MANAGER Work Phone: [place] 10-20-2023 13:48-0400 Systolic blood pressure 130 mm[Hg] Elaina Suppan MANAGER POK[employer].PRODUCTION TEAM MANAGER Work Phone: [place] 10-17-2023 13:34-0400 Body height 167.6 cm Curtis Tinoco MD Work Phone: [place] 10-17-2023 13:34-0400 Heart rate 68 /min Curtis Tinoco MD Work Phone: [place] 10-17-2023 13:34-0400 SaO2% (BldA) [Mass fraction] 98 % Curtis Tinoco MD Work Phone: [place] 10-03-2023 13:28-0400 Body height 167.6 cm Josh Lynch MD Work Phone: [place] 10-03-2023 13:28-0400 Body mass index (BMI) [Ratio] 35.73 kg/m2 Josh Lynch MD Work Phone: [place] 10-03-2023 13:28-0400 Body weight 100.43 kg Josh Lynch MD Work Phone: [place] 10-03-2023 13:28-0400 Diastolic blood pressure 72 mm[Hg] Josh Lynch MD Work Phone: [place] 10-03-2023 13:28-0400 Heart rate 53 /min Josh Lynch MD Work Phone: [place] 10-03-2023 13:28-0400 SaO2% (BldA) [Mass fraction] 96 % Josh Lynch MD Work Phone: [place] 10-03-2023 13:28-0400 Systolic blood pressure 156 mm[Hg] Josh Lynch MD Work Phone: [place] 09-08-2023 10:41-0400 Body height 167.[address] [place] 09-08-2023 10:41-0400 Body mass index (BMI) [Ratio] 34.9 kg/m2 Pst 1 [place] 09-08-2023 10:41-0400 Body temperature 97.81 [degF] Pst 1 [facility] 09-08-2023 10:41-0400 Body weight 98.07 kg [address] 1 [place] 09-08-2023 10:41-0400 Diastolic blood pressure 76 mm[Hg] Pst 1 [place] 09-08-2023 10:41-0400 Heart rate 54 /min Pst 1 [place] 09-08-2023 10:41-0400 Respiratory rate 16 /min Pst 1 [facility] 09-08-2023 10:41-0400 SaO2% (BldA) [Mass fraction] 100 % Pst 1 [place] 09-08-2023 10:41-0400 Systolic blood pressure 137 mm[Hg] Pst 1 [place] 08-04-2023 14:21-0400 Body mass index (BMI) [Ratio] 36.28 kg/m2 Jair Fields MD Work Phone: [place] 08-04-2023 14:21-0400 Body temperature 97.3 [degF] Jair Fields MD Work Phone: [place] 08-04-2023 14:21-0400 Body weight 98.88 kg Jair Fields MD Work Phone: [place] 08-04-2023 14:21-0400 Diastolic blood pressure 72 mm[Hg] Jair Fields MD Work Phone: [place] 08-04-2023 14:21-0400 Heart rate 56 /min Jair Fields MD Work Phone: [place] 08-04-2023 14:21-0400 Respiratory rate 18 /min Jair Fields MD Work Phone: [place] 08-04-2023 14:21-0400 Systolic blood pressure 146 mm[Hg] Jair Fields MD Work Phone: [place] 06-14-2023 07:30-0400 Body height 167.[address] Jason Cook Work Phone: [facility] 06-14-2023 07:30-0400 Body weight 97.[address] Jason Cook Work Phone: [facility] 05-18-2023 08:39-0500 Body weight 95.71 kg Jason Cook MD Work Phone: [place] 05-18-2023 08:39-0500 Diastolic blood pressure 62 mm[Hg] Jason Cook MD Work Phone: [place] 05-18-2023 08:39-0500 Heart rate 53 /min Jason Cook MD Work Phone: [place] 05-18-2023 08:39-0500 SaO2% (BldA) [Mass fraction] 99 % Jason Cook MD Work Phone: [place] 05-18-2023 08:39-0500 Systolic blood pressure 122 mm[Hg] Jason Cook MD Work Phone: [place] 03-11-2023 08:53-0500 Body mass index (BMI) [Ratio] 33.5 kg/m2 Dr. Jason Cook Work Phone: [facility] 03-11-2023 08:53-0500 Body weight 94.[address] Jason Cook Work Phone: 8(756)[phone] [place] [address] 03-11-2023 08:53-0500 Diastolic blood pressure 76 mm[Hg] Dr. Jason Cook Work Phone: 0(345)361-037198 [place] [address] 03-11-2023 08:53-0500 Heart rate 56 /min Dr. Jason Cook Work Phone: 7(046)829-949498 [place] [address] 03-11-2023 08:53-0500 Respiratory rate 18 /min Dr. Jason Cook Work Phone: 6(554)288-540298 [place] [address] 03-11-2023 08:53-0500 SaO2% (BldA) [Mass fraction] 96 % Dr. Jason Cook Work Phone: 0(644)275-126298 [place] [address] 03-11-2023 08:53-0500 Systolic blood pressure 146 mm[Hg] Dr. Jason Cook Work Phone: 7(023)716-755898 [place] [address] 03-01-2023 07:30-0500 Body weight 94.[address] Jason Cook Work Phone: 6(724)683-736798 [place] [address] 12-25-2022 15:34-0400 Diastolic blood pressure 67 mm[Hg] Dr. Jason Cook Work Phone: 4(264)000-930498 [place] [address] 12-25-2022 15:34-0400 Systolic blood pressure 136 mm[Hg] Dr. Jason Cook Work Phone: 0(533)419-498698 [place] [address] 12-25-2022 14:38-0400 Heart rate 76 /min Dr. Jason Cook Work Phone: 5(849)919-209398 [place] [address] 12-25-2022 14:38-0400 Respiratory rate 18 /min Dr. Jason Cook Work Phone: 3(120)076-917198 [place] [address] 12-25-2022 14:38-0400 SaO2% (BldA) [Mass fraction] 100 % Dr. Jason Cook Work Phone: 8(210)344-686698 [place] [address] 12-25-2022 14:03-0400 Body mass index (BMI) [Ratio] 35.2 kg/m2 Dr. Jason Cook Work Phone: 6(060)539-879498 [place] [address] 12-25-2022 14:03-0400 Body weight 99.[address] Jason Cook Work Phone: [facility] 12-25-2022 13:39-0400 Body height 167.[address] Jason Cook Work Phone: [facility] 12-25-2022 13:39-0400 Body temperature 97 [degF] Dr. Jason Cook Work Phone: [facility] 12-02-2022 08:30-0400 Body weight 97.[address] Jason Cook Work Phone: [facility] 11-17-2022 09:50-0400 Body weight 98.43 kg Jason Cook MD Work Phone: [place] 11-17-2022 09:50-0400 Diastolic blood pressure 70 mm[Hg] Jason Cook MD Work Phone: [place] 11-17-2022 09:50-0400 Heart rate 50 /min Jason Cook MD Work Phone: [place] 11-17-2022 09:50-0400 Respiratory rate 18 /min Jason Cook MD Work Phone: [place] 11-17-2022 09:50-0400 SaO2% (BldA) [Mass fraction] 97 % Jason Cook MD Work Phone: [place] 11-17-2022 09:50-0400 Systolic blood pressure 122 mm[Hg] Jason Cook MD Work Phone: [place] 10-26-2022 09:00-0400 Body weight 99.[address] Jason Cook Work Phone: [facility] 10-05-2022 07:55-0400 Body height 167.[address] Jason Cook Work Phone: [facility] 10-05-2022 07:55-0400 Body weight 102.[address] Jason Cook Work Phone: [facility] 09-16-2022 08:00-0400 Body height 167.[address] Jason Cook Work Phone: 3(295)712-171698 [place] [address] 09-16-2022 08:00-0400 Body weight 102.[address] Jason Cook Work Phone: 5(757)157-499198 [place] [address] 09-08-2022 08:37-0400 Body mass index (BMI) [Ratio] 36.1 kg/m2 Dr. Jason Cook Work Phone: 5(012)588-738498 [place] [address] 09-08-2022 08:37-0400 Body weight 101.[address] Jason Cook Work Phone: 4(986)415-329398 [place] [address] 09-08-2022 08:37-0400 Diastolic blood pressure 68 mm[Hg] Dr. Jason Cook Work Phone: 0(179)596-965398 [place] [address] 09-08-2022 08:37-0400 Heart rate 61 /min Dr. Jason Cook Work Phone: 0(949)038-674998 [place] [address] 09-08-2022 08:37-0400 Respiratory rate 16 /min Dr. Jason Cook Work Phone: 2(793)840-543098 [place] [address] 09-08-2022 08:37-0400 Systolic blood pressure 123 mm[Hg] Dr. Jason Cook Work Phone: 2(010)665-623598 [place] [address] 08-25-2022 08:44-0400 Body weight 103.[address] Jason Cook Work Phone: 2(448)061-689698 [place] [address] 08-05-2022 11:26-0400 Body height 167.[address] Jason Cook Work Phone: 5(983)682-363698 [place] [address] 08-05-2022 11:26-0400 Body weight 109.[address] Jason Cook Work Phone: 1(419)970-686598 [place] [address] 06-22-2022 08:56-0400 Body mass index (BMI) [Ratio] 40.1 kg/m2 Dr. Jason Cook Work Phone: 0(070)658-407198 [place] [address] 06-22-2022 08:56-0400 Body weight 109.[address] Jason Cook Work Phone: [facility] 06-22-2022 08:56-0400 Diastolic blood pressure 78 mm[Hg] Dr. Jason Cook Work Phone: [facility] 06-22-2022 08:56-0400 Heart rate 63 /min Dr. Jason Cook Work Phone: [facility] 06-22-2022 08:56-0400 Respiratory rate 18 /min Dr. Jason Cook Work Phone: [facility] 06-22-2022 08:56-0400 SaO2% (BldA) [Mass fraction] 96 % Dr. Jason Cook Work Phone: [facility] 06-22-2022 08:56-0400 Systolic blood pressure 144 mm[Hg] Dr. Jason Cook Work Phone: [facility] 04-05-2022 15:50-0500 Diastolic blood pressure 70 mm[Hg] Jason Cook MD Work Phone: [place] 04-05-2022 15:50-0500 Systolic blood pressure 142 mm[Hg] Jason Cook MD Work Phone: [place] 04-05-2022 15:32-0500 Body weight 108.41 kg Jason Cook MD Work Phone: [place] 04-05-2022 15:32-0500 Heart rate 60 /min Jason Cook MD Work Phone: [place] 04-05-2022 15:32-0500 SaO2% (BldA) [Mass fraction] 97 % Jason Cook MD Work Phone: [place] 12-10-2021 10:10-0400 Body height 165.[address] Jason Cook Work Phone: [facility] Work Phone: 12-10-2021 10:10-0400 Body mass index (BMI) [Ratio] 39.3 kg/m2 Dr. Jason Cook Work Phone: [facility] Work Phone: 12-10-2021 10:10-0400 Body weight 107.[address] Jason Cook Work Phone: [facility] Work Phone: 12-10-2021 10:10-0400 Diastolic blood pressure 66 mm[Hg] Dr. Jason Cook Work Phone: [facility] Work Phone: 12-10-2021 10:10-0400 Heart rate 64 /min Dr. Jason Cook Work Phone: [facility] Work Phone: 12-10-2021 10:10-0400 Respiratory rate 16 /min Dr. Jason Cook Work Phone: [facility] Work Phone: 12-10-2021 10:10-0400 Systolic blood pressure 142 mm[Hg] Dr. Jason Cook Work Phone: [facility] Work Phone: Encounters Encounter Date Encounter Type Care Provider Facility Start: 07-26-2024 End: 07-26-2024 Patient encounter procedure Jessica Moran APRN.FATUMA Work Phone: Neurology Comment on above: JONAH (obstructive sle ep apnea) (Primary Dx); Obesity, Class II, BMI 35-39.9; Primary hypertension Start: 07-26-2024 End: 07-26-2024 ambulatory JASON COOK Facility:[facility] Start: 07-23-2024 End: 07-23-2024 [facility]ulatory [facility] Start: 06-30-2024 End: 07-02-2024 ambulatory Jason Cook MD Work Phone: [facility] Comment on above: Cancel request. Start: 06-29-2024 End: 06-29-2024 ambulatory Jason Cook MD Work Phone: [facility] Comment on above: Short term medicatio n supply. Start: 06-26-2024 End: 06-26-2024 ambulatory JASON COOK Facility:[facility] Start: 06-26-2024 End: 06-26-2024 Patient encounter procedure Cinthya Ortiz PRASANNA Work Phone: General Surgery Comment on above: Gastroesophageal ref lux disease without esophagitis (Primary Dx); Hiatal hernia Start: 06-19-2024 End: 06-19-2024 ambulatory [facility] Facility:[facility] Start: 06-19-2024 End: 06-19-2024 Subsequent hospital visit by physician Nichole Newton MD Work Phone: Ambulatory Surgery Comment on above: Gastroesophageal ref lux disease without esophagitis [K21.9] Start: 06-12-2024 End: 06-13-2024 Follow-up encounter Josh Lynch MD Work Phone: [facility] [place] Comment on above: Results Start: 06-11-2024 End: 06-11-2024 ambulatory [facility] Facility:[facility] Start: 06-11-2024 End: 06-11-2024 Patient encounter procedure Nichole Newton MD Work Phone: General Surgery Comment on above: Gastroesophageal ref lux disease without esophagitis; Esophageal dysphagia Start: 06-04-2024 End: 06-04-2024 Refill Jason Cook MD Work Phone: [facility] [place] Comment on above: Refill Request Start: 06-01-2024 End: 08-01-2024 Follow-up encounter Jason Cook MD Work Phone: [facility] [place] Start: 05-31-2024 End: 07-31-2024 Follow-up encounter Jason Cook MD Work Phone: Pulmonology [facility] Start: 05-30-2024 End: 05-30-2024 Subsequent hospital visit by physician [facility] [place] Work Phone: Radiology Comment on above: Pain of right upper arm [M79.621] Start: 05-30-2024 End: 05-30-2024 ambulatory [facility] Facility:[facility] Start: 05-30-2024 End: 05-30-2024 Patient encounter procedure Jason Cook MD Work Phone: [facility] [place] Comment on above: Primary hypertension (Primary Dx); Hyperlipidemia with target LDL less than 100; Paroxysmal atrial fibrillation (HCC); Coronary artery disease involving [place] coronary artery of [place] heart without angina pectoris; Gastroesophageal reflux disease without esophagitis; History of squamous cell carcinoma; Obesity, Class II, BMI 35-39.9; Dysphagia, unspecified type; Hyperglycemia; Pain of right upper arm Start: 05-25-2024 End: 05-25-2024 ambulatory JASON COOK Facility:[facility] Start: 05-21-2024 End: 05-29-2024 [facility] Work Phone: Neurology Start: 05-08-2024 End: 06-04-2024 Follow-up encounter Jason Cook MD Work Phone: [facility] [place] Comment on above: JONAH (obstructive sle ep apnea) (Primary Dx) Start: 05-06-2024 End: 05-07-2024 Refill Jason Cook MD Work Phone: [facility] [place] Comment on above: Refill Request Start: 04-30-2024 End: 04-30-2024 [facility] JOEY Facility:[facility] Start: 04-27-2024 End: 04-27-2024 [facility] Facility:[facility] Start: 04-22-2024 End: 04-23-2024 Refill Jason Cook MD Work Phone: [facility] [place] Comment on above: Refill Request Start: 04-17-2024 End: 04-17-2024 ambulatory JASON John COOK Facility:[facility] Start: 04-17-2024 End: 04-17-2024 Patient encounter procedure Jason Cook MD Work Phone: [facility] [place] Comment on above: Weight gain (Primary Dx); Essential hypertension, benign; Paroxysmal atrial fibrillation (HCC); ASHD (arteriosclerotic heart disease); Fatigue, unspecified type; Class 2 obesity with body mass index (BMI) of 37.0 to 37.9 in adult, unspecified obesity type, unspecified whether serious comorbidity present; Medication monitoring encounter; JONAH (obstructive sleep apnea); Screening for diabetes mellitus; Sequelae of hyperalimentation Start: 04-16-2024 End: 04-16-2024 ambulatory [facility] Facility:[facility] Start: 04-16-2024 End: 04-16-2024 Patient encounter procedure Josh Lynch MD Work Phone: Cardiology Comment on above: Primary hypertension (Primary Dx); Coronary artery disease involving [place] coronary artery of [place] heart without angina pectoris; S/P CABG x 4; Paroxysmal atrial fibrillation (HCC) Shortness of breath (Primary Dx) Start: 04-11-2024 End: 04-11-2024 Refill Josh Lynch MD Work Phone: Cardiology Comment on above: Refill Request Medication Update Start: 03-06-2024 End: 03-06-2024 [facility] Facility:[facility] Start: 02-28-2024 End: 02-28-2024 Patient encounter procedure [facility] Provider [facility] in Department Start: 02-28-2024 End: 02-28-2024 Telephone encounter Jason Cook MD Work Phone: [facility] [place] Comment on above: Letter (Stop eliquis for surgery ) Start: 02-15-2024 End: 02-15-2024 Patient encounter procedure [facility] Provider [facility] in Department Start: 02-14-2024 End: 02-14-2024 Telephone encounter Josh Lynch MD Work Phone: [facility] [place] Comment on above: Cardiac Clearance Start: 02-06-2024 End: 02-06-2024 Telephone encounter Josh Lynch MD Work Phone: [facility] Cardiology Comment on above: Results Start: 12-30-2023 End: 12-30-2023 Chart abstracting Pema Benítez LPN [facility] Start: 12-26-2023 End: 12-26-2023 ambulatory [facility] Facility:[facility] Start: 12-26-2023 End: 12-26-2023 Subsequent hospital visit by physician [facility] Work Phone: Nuclear Medicine Comment on above: ASHD (arteriosclerot ic heart disease) [I25.10] Start: 12-20-2023 End: 12-20-2023 ambulatory [facility] Work Phone: Cardiology Comment on above: Stress Test Instruct ions for 12/26/23 Start: 12-20-2023 End: 12-20-2023 E-mail encounter from caregiver [facility] Work Phone: Cardiology Start: 12-06-2023 End: 12-06-2023 [facility] Facility:[facility] Start: 12-05-2023 End: 12-05-2023 ambulatory [facility] Facility:[facility] Start: 11-30-2023 End: 11-30-2023 Patient encounter procedure Jason Cook MD Work Phone: [facility] [place] Comment on above: Vocal cord paralysis (Primary Dx); Essential hypertension, benign; Hyperlipidemia with target LDL less than 100; ASHD (arteriosclerotic heart disease); Paroxysmal atrial fibrillation (HCC); Gastroesophageal reflux disease without esophagitis; Benign prostatic hyperplasia with urinary obstruction; Lipid disorder; Hearing loss, unspecified hearing loss type, unspecified laterality; Obesity (BMI 30-39.9); Screening for depression; Encounter for screening examination for other mental health and behavioral disorders Start: 11-30-2023 End: 11-30-2023 ambulatory [facility] Facility:[facility] Start: 11-22-2023 End: 11-22-2023 Patient encounter procedure [facility] Provider [facility] inic Department Start: 11-22-2023 End: 11-22-2023 Telephone encounter Josh Lynch MD Work Phone: [facility] [place] Comment on above: Cardiac Clearance Start: 11-18-2023 End: 11-18-2023 Telephone encounter Curtis Tinoco MD Work Phone: [facility] Comment on above: Results Start: 11-10-2023 End: 11-10-2023 ambulatory [facility] Facility:[facility] Start: 11-03-2023 End: 11-03-2023 ambulatory [facility] Facility:[facility] Start: 11-02-2023 ambulatory Mila Krause RN Work Phone: [employer] Start: 11-02-2023 Telephone follow-up Mila smyth RN Work Phone: [employer] Comment on above: Transition Of Care ( TCM Follow Up/) Weekly phone contact (Recurring) for Transitional Care Management Start: 10-27-2023 End: 10-27-2023 ambulatory [facility] Facility:[facility] Start: 10-27-2023 End: 10-27-2023 Office outpatient visit 15 minutes Elaina A Suppan MANAGER [employer].PRODUCTION TEAM MANAGER Work Phone: [facility] [place] Comment on above: Laryngitis (Primary Dx); Cellulitis of skin Start: 10-26-2023 Patient Outreach Che Verdin RN Work Phone: [employer] Comment on above: Started Weekly phone contact (Recurring) for Transitional Care Management Start: 10-20-2023 End: 10-20-2023 Office outpatient visit 15 minutes Elaina A Suppan MANAGER [employer].PRODUCTION TEAM MANAGER Work Phone: [facility] [place] Comment on above: Cellulitis of skin ( Primary Dx) Start: 10-20-2023 End: 10-20-2023 [facility] Facility:[facility] Start: 10-19-2023 ambulatory Che saavedra RN Work Phone: [employer] Start: 10-19-2023 Telephone follow-up Che Verdin RN Work Phone: [employer] Comment on above: Transition Of Care ( TCM / OON follow up ) Weekly phone contact (Recurring) for Transitional Care Management Start: 10-17-2023 End: 10-17-2023 Patient encounter procedure Curtis Tinoco MD Work Phone: [facility] Comment on above: Flank pain (Primary Dx); Kidney stone on right side Start: 10-17-2023 End: 10-17-2023 ambulatory CURTIS TINOCO Facility:[facility] Start: 10-13-2023 End: 10-13-2023 ambulatory [facility] Facility:[facility] Start: 10-13-2023 End: 10-13-2023 Subsequent hospital visit by physician [facility] [place] Sheikh Work Phone: Radiology Comment on above: Kidney stone on righ t side [N20.0] Start: 10-12-2023 Patient Outreach Che Verdin RN Work Phone: [employer] Comment on above: Transition Of Care ( TCM / OON / [place] 10/11/23) Initial phone contact for Transitional Care Management Start: 10-11-2023 ambulatory [facility] Facility:[facility] Start: 10-09-2023 End: 10-11-2023 Evaluation and management of inpatient [facility] Facility:[facility] Start: 10-09-2023 ambulatory [facility] Facility:[facility] Start: 10-08-2023 End: 10-08-2023 Emergency department patient visit Catrachito Moreno Facility:[facility] Start: 10-03-2023 End: 10-03-2023 ambulatory [facility] Facility:[facility] Start: 10-03-2023 End: 10-03-2023 Patient encounter procedure Josh Lynch MD Work Phone: Cardiology Comment on above: Obesity, Class II, B NJ 35-39.9 (Primary Dx); ASHD (arteriosclerotic heart disease); SOB (shortness of breath); Essential hypertension, benign; Paroxysmal atrial fibrillation (HCC); S/P CABG x 4 Start: 09-26-2023 End: 09-26-2023 ambulatory [facility] Facility[facility] Start: 09-16-2023 Telephone encounter Curtis Tinoco MD Work Phone: [facility] Comment on above: Appointment Start: 09-15-2023 End: 09-15-2023 ambulatory CURTIS TINOCO Facility:[facility] Start: 09-12-2023 Orders Only Curtis Tinoco MD Work Phone: [facility] Comment on above: Results Start: 09-08-2023 Telephone encounter Curtis Tinoco MD Work Phone: [facility] Comment on above: Surgery Scheduled Start: 09-08-2023 End: 09-08-2023 Admission to establishment [facility] 1 Pre Surgical Testing Start: 09-08-2023 End: 11-30-2023 Patient encounter status Curtis Tinoco MD Work Phone: [place] Work Phone: Start: 09-08-2023 End: 09-08-2023 ambulatory CURTIS TINOCO Pre Surgical Testing Comment on above: Preop testing (Prima ry Dx); Arteriosclerosis of coronary artery; Paroxysmal atrial fibrillation (HCC); Gastroesophageal reflux disease without esophagitis; Essential hypertension, benign; Hyperlipidemia with target LDL less than 100; Obesity (BMI 30-39.9); Calculus, renal [N20.0] Start: 09-08-2023 Encounter for other preprocedural examination [facility] Start: 09-07-2023 Telephone encounter Curtis Tinoco MD Work Phone: Urology Comment on above: Schedule Surgery; Ap pointment Start: 09-02-2023 End: 09-02-2023 [facility] Facility:[facility] Start: 08-24-2023 End: 08-24-2023 [facility] Start: 08-24-2023 End: 08-24-2023 Patient encounter procedure Leighton Ward MD Work Phone: Dermatology Comment on above: Skin exam, screening for cancer (Primary Dx); Hx of nonmelanoma skin cancer; Diffuse photodamage of skin; Blue nevus Start: 08-23-2023 Telephone encounter Rock leach PA-C Work Phone: Urology Comment on above: Orders; Patient Upda te Start: 08-17-2023 End: 08-17-2023 ambulatory [facility] Facility[facility] Start: 08-17-2023 End: 08-17-2023 Patient encounter procedure Rock Baldwin PA-C Work Phone: Urology Comment on above: Kidney stone on righ t side (Primary Dx); Flank pain; Screening for genitourinary condition Start: 08-05-2023 Telephone encounter Joe Fields MD Work Phone: [facility] Comment on above: Results Start: 08-04-2023 ambulatory JAIR FIELDS Facility:[facility] Start: 08-04-2023 End: 08-04-2023 Subsequent hospital visit by physician [facility] Work Phone: [facility] Comment on above: Flank pain [R10.9] Start: 08-04-2023 End: 08-04-2023 ambulatory JASON COOK Facility:[facility] Start: 08-04-2023 End: 08-04-2023 Patient encounter procedure Jair Fields MD Work Phone: [facility] Comment on above: Flank pain (Primary Dx); Gross hematuria Start: 06-14-2023 End: 06-26-[address] Jason Cook Work Phone: [facility] Work Phone: Start: 06-14-2023 End: 06-26-[address] Jason Cook Work Phone: [facility] Work Phone: Start: 06-05-2023 Refill Jason Cook MD Work Phone: [facility] Comment on above: Refill Request Start: 05-18-2023 End: 05-18-2023 Patient encounter procedure Jason Cook MD Work Phone: [facility] Comment on above: Essential hypertensi on, benign (Primary Dx); Hyperlipidemia with target LDL less than 100; ASHD (arteriosclerotic heart disease); Paroxysmal atrial fibrillation (HCC); Gastroesophageal reflux disease without esophagitis; History of squamous cell carcinoma; Lipid disorder; Screening for prostate cancer Start: 04-12-2023 Refill Jason Cook MD Work Phone: [facility] Comment on above: Refill Request Start: 03-11-2023 End: 03-11-[address] Jason Cook Work Phone: [facility] Work Phone: Start: 03-01-2023 Telephone encounter Jason Cook MD Work Phone: [facility] Comment on above: Forms ([place] [employer] ) Start: 03-01-2023 End: 03-27-[address] [facility] Work Phone: Start: 12-25-2022 End: 12-25-2022 Emergency department patient visit Dr. Jason Cook Work Phone: [facility] Work Phone: Start: 12-02-2022 End: 12-25-[address] Jason Cook Work Phone: [facility] Work Phone: Start: 12-02-2022 End: 12-25-[address] Jason Cook Work Phone: [facility] Work Phone: Start: 12-02-[address] Hector Cook Work Phone: [facility] Work Phone: Start: 11-17-2022 End: 11-17-2022 Patient encounter procedure Jason Cook MD Work Phone: [facility] Comment on above: Paroxysmal atrial fi brillation (HCC) (Primary Dx); ASHD (arteriosclerotic heart disease); Essential hypertension, benign; History of squamous cell carcinoma; Lipid disorder Start: 10-26-2022 End: 11-25-[address] Jason Cook Work Phone: [facility] Work Phone: Start: 10-05-2022 End: 10-25-[address] Jason Cook Work Phone: [facility] Work Phone: Start: 10-05-2022 End: 10-25-[address] Jason Cook [facility] Work Phone: Start: 09-16-2022 End: 09-24-[address] Jason Cook Work Phone: [facility] Work Phone: Start: 09-16-2022 End: 09-24-[address] Jason Cook Work Phone: [facility] Work Phone: Start: 09-08-2022 End: 09-08-[address] Jason Cook Work Phone: [facility] Work Phone: Start: 08-25-2022 End: 08-25-[address] Jason Cook Work Phone: [facility] Work Phone: Start: 08-25-2022 End: 08-25-[address] Jason Cook Work Phone: [facility] Start: 07-22-2022 End: 07-22-2022 Patient encounter procedure Leighton Ward MD Work Phone: Dermatology Comment on above: Skin exam, screening for cancer (Primary Dx); Blue nevus; Inflamed seborrheic keratosis; AK (actinic keratosis); Skin pain; Diffuse photodamage of skin Start: 06-22-2022 End: 06-22-[address] Jason Cook Work Phone: [facility] Start: 06-13-2022 Refill Jazmyne Lyman APRN.CNP Work Phone: [facility] Comment on above: Refill Request Start: 05-24-2022 Telephone encounter Jason Cook MD Work Phone: [facility] Comment on above: Forms ([place] [employer] Patient Asst form/Eliquis ) Start: 05-15-2022 Refill Jason Cook MD Work Phone: [facility] Comment on above: Refill Request Start: 04-05-2022 End: 04-05-2022 Subsequent hospital visit by physician [facility] [place] Work Phone: Radiology Comment on above: Bronchitis [J40] Start: 04-05-2022 End: 04-05-2022 Patient encounter procedure Jason Cook MD Work Phone: [facility] Comment on above: Bronchitis (Primary Dx); Paroxysmal atrial fibrillation (HCC); Essential hypertension, benign; History of COVID-19 Start: 03-25-2022 ambulatory Jason Cook MD Work Phone: [facility] Comment on above: Covid positive Start: 03-04-2022 Refill Jason Cook MD Work Phone: [facility] Comment on above: Refill Request Start: 01-07-2022 ambulatory Vero Strong MD Work Phone: Dermatology Comment on above: Tumor regrowing? Start: 12-22-2021 Non-patient / Non-visit Dr. Ashtyn Cook Work Phone: [facility] Start: 12-22-2021 End: 12-22-[address] Jason Cook Work Phone: [facility] Work Phone: Start: 12-22-2021 End: 12-22-[address] Jason Cook Work Phone: [facility] Start: 12-10-2021 End: 12-10-[address] Jason Cook Work Phone: [facility] [facility] Start: 07-10-2021 Refill Jazmyne Lyman APRN.CNP Work Phone: [facility] Comment on above: Refill Request Start: 06-25-2021 End: 06-25-2021 Patient encounter procedure Vero Strong MD Work Phone: Dermatology Comment on above: Scar (Primary Dx) Start: 10-11-2020 End: 10-11-2020 Subsequent hospital visit by physician [facility] [place] Work Phone: Radiology Comment on above: SOB (shortness of br eath) [R06.02] Start: 04-07-2020 End: 04-07-2020 Subsequent hospital visit by physician [facility] [place] Work Phone: Radiology Comment on above: Shoulder impingement syndrome, left [M75.42] Start: 09-09-[address] [facility] Facility :[facility] Start: 03-11-2017 End: 03-11-2017 [facility] Facility:[facility] Procedures Date Procedure Procedure Detail Performing Clinician Start: 06-19-2024 Esophagogastroduodenoscopy transoral diagnostic Nichole Newton MD Work Phone: Start: 12-26-2023 Myocardial spect multiple studies Josh Lynch MD Work Phone: Start: 11-30-2023 Adult depression screening assessment Jason Cook MD Work Phone: Start: 10-17-2023 Urnls dip stick/tablet rgnt auto w/o microscopy Curtis Tinoco MD Work Phone: Start: 10-13-2023 Radiologic exam abdomen 1 view Curtis Tinoco MD Work Phone: Start: 10-03-2023 Ecg routine ecg w/least 12 lds i&r only [facility] Provider Start: 09-26-2023 Lipid 1996 panel - Serum or Plasma Fermin Lynch MD Work Phone: Start: 08-17-2023 Urnls dip stick/tablet rgnt auto w/o microscopy Rock Baldwin PA-C Work Phone: Start: 08-04-2023 Ct abdomen & pelvis w/o contrast material Jair Fields MD Work Phone: Start: 08-04-2023 Urnls dip stick/tablet rgnt auto w/o microscopy Jair Fields MD Work Phone: Start: 12-25-2022 CT of head without contrast Dr. Jason Cook Work Phone: Start: 11-09-2022 Lipid 1996 panel - Serum or Plasma Hector Cook MD Work Phone: Start: 07-22-2022 End: 07-22-2022 CRYOTHERAPY SKIN LESION Leighton Serrato Work Phone: Start: 04-05-2022 Radiologic exam chest 2 views Jason Cook MD Work Phone: Start: 12-22-2021 Radionuclide imaging of perfusion of myocardium under exercise stress Dr. Jason Cook Work Phone: Start: 05-13-2021 Adult depression screening assessment Vero Strong MD Work Phone: Start: 10-11-2020 Radiologic exam chest 2 views Jason Cook MD Work Phone: Start: 04-07-2020 Radex spine cervical 4 or 5 views Jersey Knox MD Start: 05-04-2017 History of coronary artery bypass grafting S/P CABG x 4 Vero Strong MD Work Phone: Start: 04-26-2017 Colonoscopy Vero Strong MD Work Phone: Start: 10-26-2016 History of coronary artery bypass grafting History of coronary artery bypass surgery Dr. Jason Cook Work Phone: Start: 05-05-2015 History of placement of stent in anterior descending branch of left coronary artery Presence of drug coated stent in LAD coronary artery Vero Strong MD Work Phone: Start: 03-28-2015 History of placement of stent in anterior descending branch of left coronary artery History of placement of stent in LAD coronary artery Dr. Jason Cook Work Phone: History of coronary artery bypass grafting Hx of CABG Dr. Jason Cook Work Phone: History of coronary artery bypass grafting S/P CABG x 4 Josh Lynch MD Work Phone: History of coronary artery bypass grafting S/P CABG x 4 Josh Lynch MD Work Phone: Plan of Treatment Date Care Activity Detail Author Start: 09-25-2028 Lipid panel Lipid Screening [place] Start: 11-10-2027 Lipid 1996 panel - Serum or Plasma Lipid Screening [place] Start: 11-10-2027 Lipid panel Lipid Screening [place] Start: 11-10-2027 LIPID SCREEN LIPID SCREEN [place] Start: 05-31-2027 Diabetes Screening Diabetes Screening [place] Start: 05-04-2027 Urine microalbumin profile [place] Start: 04-27-2027 Diabetes Screening Diabetes Screening [place] Start: 04-26-2027 Colonoscopy COLONOSCOPY [place] Start: 04-26-2027 COLORECTAL CANCER SCREENING COLORECTAL CANCER SCREENING [place] Start: 04-26-2027 Screening for malignant neoplasm of colon [place] Start: 11-12-2026 LIPID SCREEN LIPID SCREEN [place] Start: 11-02-2026 Diabetes Screening Diabetes Screening [place] Start: 09-25-2026 Diabetes Screening Diabetes Screening [place] Start: 09-07-2026 Diabetes Screening Diabetes Screening [place] Start: 08-03-2026 Diabetes Screening Diabetes Screening [place] Start: 11-09-2025 DIABETES SCREEN DIABETES SCREEN [place] Start: 11-09-2025 Diabetes Screening Diabetes Screening [place] Start: 10-11-2025 LIPID SCREEN LIPID SCREEN [place] Start: 07-25-2025 End: 07-25-2025 Patient encounter procedure 07/25/2025 7:45 AM EDT Office Visit Dermatology [address] [place], [place] [id number] Leighton Ward MD [address] [place] [address] Return in about 1 year (around 07/23/2025) for skin check. Dermatology Comment on above: Return in about 1 year (around 07/23/2025 ) for skin check. Start: 06-11-2025 BP Controlled (<130/80) BP Controlled (<130/80) [facility] Start: 05-30-2025 Annual PCP Team Chronic Disease Visit Annual PCP Team Chronic Disease Visit [place] Start: 04-17-2025 Annual PCP Team Chronic Disease Visit Annual PCP Team Chronic Disease Visit [place] Start: 04-15-2025 End: 04-15-2025 Patient encounter procedure 04/15/2025 8:40 AM EST Office Visit Cardiology [address] [facility] [place] [address] Josh Lynch MD [address] [facility], [address] [place] [address] 1 year follow up Cardiology Comment on above: 1 year follow up Start: 01-28-2025 End: 01-28-2025 Patient encounter procedure 01/28/2025 10:00 AM EST Office Visit Neurology [address] [facility] [place] [address] Jessica Moran APRN.PRODUCTION TEAM MANAGER [address] [facility] [address] [place] [address] 6 month follow up Neurology Comment on above: 6 month follow up Start: 12-14-2024 End: 12-14-2024 Patient encounter procedure 12/14/2024 3:20 PM EDT Office Visit Family Medicine [place] [address] [place] [address] Jason Cook MD [address] [facility] [place] [address] Medicare Wellness [facility] [place] Comment on above: Medicare Wellness Start: 11-29-2024 Annual PCP Team Chronic Disease Visit Annual PCP Team Chronic Disease Visit [place] Start: 11-29-2024 Anxiety Screening Anxiety Screening [place] Start: 11-29-2024 Depression Screening Depression Screening [place] Start: 11-12-2024 DIABETES SCREEN DIABETES SCREEN [place] Start: 10-19-2024 End: 10-19-2024 Patient encounter procedure 10/19/2024 7:45 AM EDT Office Visit [facility] [address] [place] [address] Curtis Tinoco MD [address] [place] [address] 1 year follow up, west prior [facility] Comment on above: 1 year follow up, west prior Start: 09-25-2024 Hepatitis B surface antibody level LDL Cholesterol [place] Start: 09-24-2024 Influenza vaccination Influenza Vaccine (#1) [place] [facility] gama Comment on above: Postponed from 11/27/2023 (Declined at t his time) Start: 08-03-2024 Annual PCP Team Chronic Disease Visit Annual PCP Team Chronic Disease Visit [place] Start: 07-26-2024 End: 07-26-2024 Patient encounter procedure 07/26/2024 1:00 PM EDT Office Visit Neurology [address] [place] [address] Jessica Moran APRN.PRODUCTION TEAM MANAGER [address] [phone] JONAH (obstructive sleep apnea) [G47.33] Neurology Comment on above: JONAH (obstructive sleep apnea) [G47.33] Start: 07-23-2024 End: 07-23-2024 Patient encounter procedure 07/23/2024 7:45 AM EDT Office Visit Dermatology [address] [place], [place] [phone] Leighton Ward MD [address] [place], [place] [phone] Return in about 6 months (around 02/24/2024) for skin check. Dermatology Comment on above: Return in about 6 months (around 024) for skin check. Start: 06-29-2024 Covid-19 Vaccine () Covid-19 Vaccine () [place] Start: 06-26-2024 End: 06-26-2024 Patient encounter procedure 06/26/2024 9:00 AM EDT Office Visit General Surgery [address] [place], [place] [phone] Cinthya Ortiz, MICHA.PRODUCTION TEAM MANAGER [address] [place] [address] 06-19 EGD follow up General Surgery Comment on above: 06-19 EGD follow up Start: 06-19-2024 End: 06-19-2024 Patient encounter procedure 06/19/2024 10:15 AM EDT Appointment Ambulatory Surgery [address] [place], [place] [phone] Nichole Newton MD [address] [place] [phone] Gastroesophageal reflux disease without esophagitis [K21.9]; Dysphagia, unspecified type [R13.10] Ambulatory Surgery Comment on above: Gastroesophageal reflux disease without esophagitis [K21.9]; Dysphagia, unspecified type [R13.10] Start: 06-11-2024 End: 06-11-2024 Patient encounter procedure 06/11/2024 8:45 AM EDT Office Visit General Surgery [address] [place] [address] Nichole Newton MD [address] [place] [phone] Gastroesophageal reflux disease without esophagitis [K21.9] General Surgery Comment on above: Gastroesophageal reflux disease without esophagitis [K21.9] Start: 05-30-2024 End: 08-29-2024 Hemoglobin A1c in Blood [facility] Work Phone: Comment on above: Expected: 05/30/2024, Expires: Start: 05-30-2024 End: 05-30-2024 Patient encounter procedure 05/30/2024 8:40 AM EST Office Visit [facility] [address] [place] [address] Jason Cook MD [address] [place], [place] [address] 6 month follow up [facility] Comment on above: 6 month follow up Start: 05-25-2024 End: 05-25-2024 Patient encounter procedure 05/25/2024 10:00 AM EST Office Visit Neurology [address] [place] [address] Fatigue, unspecified type [R53.83]; JONAH (obstructive sleep apnea) [G47.33] Neurology Comment on above: Fatigue, unspecified type [R53.83]; JONAH (obstructive sleep apnea) [G47.33] Start: 05-18-2024 Annual PCP Team Chronic Disease Visit Annual PCP Team Chronic Disease Visit [place] Start: 05-18-2024 BP Controlled (<130/80) BP Controlled (<130/80) [facility] Start: 04-30-2024 End: 04-16-2025 Echocardiography ECHO Cardiology Routine Primary hypertension Expected: 04/30/2024, Expires: 04/16/2025 [facility] Work Phone: Comment on above: Expected: 04/30/2024, Expires: Start: 04-30-2024 End: 04-30-2024 Patient encounter procedure 04/30/2024 8:50 AM EST Office Visit Cardiology [address] [place] [address] Dx: Primary hypertension [I10] Cardiology Comment on above: Dx: Primary hypertension [I10] Start: 04-23-2024 End: 07-23-2024 Basic metabolic 2000 panel - Serum or Plasma BASIC METABOLIC PANEL Lab Routine Primary hypertension Expected: 04/23/2024, Expires: 07/23/2024 [place] Comment on above: Expected: 04/23/2024, Expires: 5 Start: 04-23-2024 End: 04-16-2025 Echocardiography ECHO Cardiology Routine Shortness of breath Expected: 04/23/2024, Expires: 04/16/2025 [facility] Work Phone: Comment on above: Expected: 04/23/2024, Expires: Start: 04-17-2024 End: 07-17-2024 25-hydroxyvitamin D3 [Mass/volume] in Serum or Plasma VITAMIN D 25 HYDROXY Lab Routine Class 2 obesity with body mass index (BMI) of 37.0 to 37.9 in adult, unspecified obesity type, unspecified whether serious comorbidity present Sequelae of hyperalimentation Expected: 04/17/2024, Expires: 07/17/2024 [place] Comment on above: Expected: 04/17/2024, Expires: Start: 04-17-2024 End: 07-17-2024 CBC W Auto Differential panel - Blood COMPLETE BLOOD COUNT AND DIFFERENTIAL Lab Routine Fatigue, unspecified type Expected: 04/17/2024, Expires: 07/17/2024 [place] Comment on above: Expected: 04/17/2024, Expires: Start: 04-17-2024 End: 07-17-2024 Cobalamin (Vitamin B12) [Mass/volume] in Serum or Plasma VITAMIN B12 Lab Routine Medication monitoring encounter Expected: 04/17/2024, Expires: 07/17/2024 [place] Comment on above: Expected: 04/17/2024, Expires: Start: 04-17-2024 End: 07-17-2024 Hemoglobin A1c in Blood HEMOGLOBIN A1C Lab Routine Fatigue, unspecified type Class 2 obesity with body mass index (BMI) of 37.0 to 37.9 in adult, unspecified obesity type, unspecified whether serious comorbidity present Screening for diabetes mellitus Expected: 04/17/2024, Expires: 07/17/2024 [place] Comment on above: Expected: 04/17/2024, Expires: Start: 04-17-2024 End: 07-17-2024 Magnesium [Mass/volume] in Serum or Plasma MAGNESIUM Lab Routine Medication monitoring encounter Expected: 04/17/2024, Expires: 07/17/2024 [place] Comment on above: Expected: 04/17/2024, Expires: Start: 04-17-2024 End: 07-17-2024 Testosterone [Mass/volume] in Serum or Plasma TESTOSTERONE, TOTAL BY IMMUNOASSAY (ADULT MALES, OR INDIVIDUALS ON TESTOSTERONE THERAPY) Lab Routine Fatigue, unspecified type Expected: 04/17/2024, Expires: 07/17/2024 [place] Comment on above: Expected: 04/17/2024, Expires: Start: 04-17-2024 End: 07-17-2024 Thyrotropin [Units/volume] in Serum or Plasma THYROID STIMULATING HORMONE Lab Routine Paroxysmal atrial fibrillation (HCC) Fatigue, unspecified type Expected: 04/17/2024, Expires: 07/17/2024 [place] Comment on above: Expected: 04/17/2024, Expires: Start: 04-17-2024 End: 04-17-2024 Patient encounter procedure 04/17/2024 11:00 AM EST Office Visit [facility] [place] [address] [place], [place] [phone] Jason Cook MD [address] [place], [place] [phone] Referred by Dr Lynch to do blood sugar monitoring. [facility] [place] Comment on above: Referred by Dr Lynch to do blood sugar m onitoring. Start: 04-16-2024 End: 04-16-2024 Patient encounter procedure Cardiology Comment on above: 6 month follow up Start: 03-28-2024 Advance Directive Discussion Advance Directive Discussion [place] Start: 03-01-2024 End: 03-01-2024 Patient encounter procedure 03/01/2024 8:45 AM EST Office Visit Dermatology [address] [place], [place] [phone] Leighton Ward MD [address] [place], [place] [phone] Return in about 6 months (around 02/24/2024) for skin check. Dermatology Comment on above: Return in about 6 months (around 024) for skin check. Start: 12-26-2023 End: 12-26-2023 Nursing evaluation of patient and report 12/26/2023 8:15 AM EDT Nurse Visit Cardiology [address] [place] [id number] Wstr, Nurse [facility] [address] [place] [address] ASHD (arteriosclerotic heart disease) [I25.10] Cardiology Comment on above: ASHD (arteriosclerotic heart disease) [I 25.10] Start: 12-26-2023 End: 12-26-2023 Patient encounter procedure Nuclear Medicine Comment on above: ASHD (arteriosclerotic heart disease) [I 25.10] Start: 11-30-2023 End: 11-30-2023 Patient encounter procedure 11/30/2023 8:40 AM EDT Office Visit [facility] [place] [address] [place], [place] [address] Jason Cook MD [address] [place], [place] [address] 6 month follow up [facility] [place] Comment on above: 6 month follow up Start: 11-27-2023 Covid-19 Vaccine ( season) Covid-19 Vaccine () [place] Start: 11-27-2023 Influenza vaccination Influenza Vaccine (#1) [facility] Start: 11-18-2023 ANNUAL PCP TEAM CHRONIC DISEASE VISIT ANNUAL PCP TEAM CHRONIC DISEASE VISIT [place] Start: 11-18-2023 BP CONTROLLED (<130/80) BP CONTROLLED (<130/80) [facility] Start: 11-10-2023 Hepatitis B surface antibody level LDL CHOLESTEROL [place] Start: 11-03-2023 End: 11-03-2023 ambulatory [facility] Comment on above: Laryngitis Start: 10-27-2023 End: 01-26-2024 Basic metabolic 2000 panel - Serum or Plasma BASIC METABOLIC PANEL Lab Routine Cellulitis of skin Expected: 10/27/2023, Expires: 01/26/2024 [facility] Work Phone: Comment on above: Expected: 10/27/2023, Expires: Start: 10-27-2023 End: 01-26-2024 Magnesium [Mass/volume] in Serum or Plasma MAGNESIUM Lab Routine Cellulitis of skin Expected: 10/27/2023, Expires: 01/26/2024 [place] Comment on above: Expected: 10/27/2023, Expires: Start: 10-27-2023 End: 10-27-2023 Patient encounter procedure 10/27/2023 2:00 PM EDT Office Visit [facility] [place] [address] [place], [place] [id number] Elaina Amezcua APRN.PRODUCTION TEAM MANAGER [address] [facility] [place] [id number] 1 week cellulitis f/u [facility] Comment on above: 1 week cellulitis f/u Start: 10-20-2023 End: 10-20-2023 Patient encounter procedure 10/20/2023 1:40 PM EDT Office Visit [facility] [place] [address] [place], [place] [id number] Elaina Amezcua APRN.PRODUCTION TEAM MANAGER [address] [facility] [id number] [facility] follow up cellulitis/sepsis [facility] Comment on above: [facility] follow up cellulitis/sepsis Start: 10-17-2023 End: 10-17-2023 Patient encounter procedure 10/17/2023 3:30 PM EDT Office Visit [facility] [address] [place] [phone] Curtis Tinoco MD [address] [place] [address] follow up, kub prior, insisted on seeing [facility] Comment on above: follow up, kub prior, insisted on seeing [facility] Start: 10-17-2023 End: 01-16-2024 LITHOLINK 24HR URINE PANEL LITHOLINK 24HR URINE PANEL Lab Routine Flank pain Kidney stone on right side Expected: 10/17/2023, Expires: 01/16/2024 [place] Comment on above: Expected: 10/17/2023, Expires: Start: 10-17-2023 End: 11-01-2024 NM Heart Perfusion W multiple states of exercise NM CARDIAC PERF STRESS/EXERCISE Radiology Routine ASHD (arteriosclerotic heart disease) SOB (shortness of breath) Expected: 10/17/2023, Expires: 11/01/2024 [facility] Work Phone: Comment on above: Expected: 10/17/2023, Expires: Start: 10-17-2023 End: 10-17-2023 Patient encounter procedure 10/17/2023 1:45 PM EDT Office Visit [facility] [address] [place] [phone] Curtis Tinoco MD [address] [place] [address] follow up, kub prior, insisted on seeing [facility] Comment on above: follow up, kub prior, insisted on seeing [facility] Start: 10-12-2023 DIABETES SCREEN DIABETES SCREEN [place] Start: 10-03-2023 End: 10-03-2023 Patient encounter procedure 10/03/2023 2:00 PM EDT Office Visit Cardiology [address] [place] [phone] Josh Lynch MD [address] [facility], [address] [place] [address] ASHD (arteriosclerotic heart disease) [I25.10] Cardiology Comment on above: ASHD (arteriosclerotic heart disease) [I 25.10] Start: 09-26-2023 End: 12-26-2023 CBC W Auto Differential panel - Blood CBC + DIFF Lab Routine Essential hypertension, benign Expected: 09/26/2023, Expires: 12/26/2023 [facility] Work Phone: Comment on above: Expected: 09/26/2023, Expires: Start: 09-26-2023 End: 12-26-2023 Comprehensive metabolic 2000 panel - Serum or Plasma COMP METABOLIC PANEL Lab Routine Essential hypertension, benign Expected: 09/26/2023, Expires: 12/26/2023 [facility] Work Phone: Comment on above: Expected: 09/26/2023, Expires: Start: 09-26-2023 End: 12-26-2023 Lipid 1996 panel - Serum or Plasma LIPID PANEL BASIC Lab Routine Essential hypertension, benign Expected: 09/26/2023, Expires: 12/26/2023 [facility] Work Phone: Comment on above: Expected: 09/26/2023, Expires: Start: 09-26-2023 End: 12-26-2023 PSA/PROSTSPECAG SCRN PSA/PROSTSPECAG SCRN Lab Routine Screening for prostate cancer Expected: 09/26/2023, Expires: 12/26/2023 [facility] Work Phone: Comment on above: Expected: 09/26/2023, Expires: Start: 09-26-2023 End: 09-26-2023 ambulatory 09/26/2023 7:00 AM EDT Results Only [facility] [address] [place] [address] [facility] Start: 09-15-2023 End: 09-15-2023 Admission to same day surgery center 09/15/2023 1:30 PM EDT - 09/15/2023 2:45 PM EDT Surgery [facility] [place] [address] [place] [address] Curtis Tinoco MD [address] [place] [address] EXTRACORPOREAL SHOCKWAVE LITHOTRIPSY UNILATERAL [facility] Comment on above: EXTRACORPOREAL SHOCKWAVE LITHOTRIPSY UNI LATERAL Start: 09-15-2023 End: 09-15-2023 Lithotripsy xtrcorp shock wave EXTRACORPOREAL SHOCKWAVE LITHOTRIPSY UNILATERAL Calculus, renal 09/15/2023 1:30 PM EDT [place] [facility] Start: 09-15-2023 Subsequent hospital visit by physician 09/15/2023 1:30 PM EDT Hospital Encounter [facility] [address] [place] [address] Curtis Tinoco MD [address] [place] [address] Calculus, renal [N20.0] [facility] Comment on above: Calculus, renal [N20.0] Start: 09-02-2023 End: 09-02-2023 Patient encounter procedure Radiology Comment on above: spine xray us kidney bladder Start: 08-24-2023 End: 09-15-2024 US Kidney - bilateral and Urinary bladder US KIDNEY/BLADDER Radiology Routine Kidney stone on right side Flank pain Expected: 08/24/2023 (Approximate), Expires: 09/15/2024 [facility] Work Phone: Comment on above: Expected: 08/24/2023 (Approximate), Expi res: 09/15/2024 Start: 08-24-2023 End: 08-24-2023 Patient encounter procedure 08/24/2023 7:30 AM EDT [facility] [address] [facility] [address] [place], [place] [phone] Leighton Ward MD [address] [place], [place] [phone] skin check Dermatology Comment on above: skin check Start: 05-20-2023 ANNUAL PCP TEAM CHRONIC DISEASE VISIT ANNUAL PCP TEAM CHRONIC DISEASE VISIT [place] Start: 04-05-2023 ANNUAL PCP TEAM CHRONIC DISEASE VISIT ANNUAL PCP TEAM CHRONIC DISEASE VISIT [place] Start: 11-26-2022 Influenza vaccination INFLUENZA (#1) [place] Start: 11-12-2022 Hepatitis B surface antibody level LDL CHOLESTEROL [place] Start: 11-11-2022 ANNUAL PCP TEAM CHRONIC DISEASE VISIT ANNUAL PCP TEAM CHRONIC DISEASE VISIT [place] Start: 11-11-2022 BP CONTROLLED (<130/80) BP CONTROLLED (<130/80) [facility] Start: 06-22-2022 Patient referral [facility] Work Phone: Start: 05-13-2022 Adult depression screening assessment DEPRESSION SCREENING [place] Start: 05-13-2022 ANNUAL PCP TEAM CHRONIC DISEASE VISIT ANNUAL PCP TEAM CHRONIC DISEASE VISIT [place] Start: 04-24-2022 COVID-19 VACCINE (5 - Additional dose for Maliha series) COVID-19 VACCINE (5 - Additional dose for Maliha series) [place] Start: 03-28-2022 ADVANCE DIRECTIVE DISCUSSION ADVANCE DIRECTIVE DISCUSSION [place] Start: 03-28-2022 DEPRESSION ASSESSMENT DEPRESSION ASSESSMENT [place] Start: 10-11-2021 Hepatitis B surface antibody level LDL CHOLESTEROL [place] Start: 03-28-2021 ADVANCE DIRECTIVE DISCUSSION ADVANCE DIRECTIVE DISCUSSION [place] Start: 03-28-2021 DEPRESSION ASSESSMENT DEPRESSION ASSESSMENT [place] Start: 10-22-2020 BP CONTROLLED (<130/80) BP CONTROLLED (<130/80) [facility] Start: 11-05-2016 End: 11-05-2016 Left Heart Cath Left Heart [facility] Work Phone: Start: 1994 COLOGUARD (FIT-DNA) COLOGUARD (FIT-DNA) [place] Start: [address] COLONOGRAPHY [place] Start: 1994 FECAL OCCULT BLOOD FECAL OCCULT BLOOD [place] Start: 1994 Screening for malignant neoplasm of colon [place] Start: 1994 SIGMOIDOSCOPY SIGMOIDOSCOPY [place] Start: 1967 Anxiety Screening Anxiety Screening [place] Start: 1967 Depression Screening Depression Screening [place] ECG COMPLETE ECG COMPLETE ECG 10/03/2023 1:33 PM EDT [facility] End: 06-11-2025 EGD DIAGNOSTIC EGD DIAGNOSTIC Endoscopy Routine Gastroesophageal reflux disease without esophagitis Esophageal dysphagia 1 Occurrences starting 06/11/2024 until 06/11/2025 [facility] Work Phone: Comment on above: 1 Occurrences starting 06/11/2024 until 06/11/2025 End: 04-17-2025 HOME SLEEP APNEA TEST (HSAT) HOME SLEEP APNEA TEST (HSAT) Procedures Routine Fatigue, unspecified type JONAH (obstructive sleep apnea) 1 Occurrences starting 04/17/2024 until 04/17/2025 [facility] Work Phone: Comment on above: 1 Occurrences starting 04/17/2024 until 04/17/2025 Patient Education ED Head Injury (Adult) [facility] Work Phone: Patient referral [facility] Work Phone: Tissue Pathology bio psy report [facility] Work Phone: Comment on above: Release Upon Ordering for 1 Occurrences starting 06/19/2024, 1 completed End: 09-21-2024 US Kidney - bilateral and Urinary bladder US KIDNEY/BLADDER Radiology Routine Kidney stone on right side 1 Occurrences starting 08/23/2023 until 09/21/2024 [place] Comment on above: 1 Occurrences starting 08/23/2023 until 09/21/2024 End: 09-21-2024 XR Abdomen Supine and Upright XR ABDOMEN 1V SUPINE Radiology Routine Kidney stone on right side 1 Occurrences starting 08/23/2023 until 09/21/2024 [facility] Work Phone: Comment on above: 1 Occurrences starting 08/23/2023 until 09/21/2024 End: 10-15-2024 XR Abdomen Supine and Upright XR ABDOMEN 1V SUPINE Radiology Routine Kidney stone on right side 1 Occurrences starting 09/16/2023 until 10/15/2024 [facility] Work Phone: Comment on above: 1 Occurrences starting 09/16/2023 until 10/15/2024 End: 11-15-2024 XR Abdomen Supine and Upright XR ABDOMEN 1V SUPINE Radiology Routine Flank pain Kidney stone on right side 1 Occurrences starting 10/17/2023 until 11/15/2024 [facility] Work Phone: Comment on above: 1 Occurrences starting 10/17/2023 until 11/15/2024 End: 06-29-2025 XR Shoulder - right 3 Views XR SHOULDER GENERAL 3V OR MORE AP/TRUE AP/OTHER RIGHT Radiology Routine Pain of right upper arm 1 Occurrences starting 05/30/2024 until 06/29/2025 [place] Comment on above: 1 Occurrences starting 05/30/2024 until 06/29/2025 XR Shoulder - right 3 Views XR SHOULDER GENERAL 3V OR MORE AP/TRUE AP/OTHER RIGHT Radiology Routine Pain of right upper arm 05/30/2024 9:34 AM EST [facility] Work Phone: [facility] Immunizations Immunization Date Immunization Notes Care Provider Ann perlajunior 12-30-2023 COVID-19 vaccine, ag e 12+ yr (MODERNA) 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[place] 12-30-2023 influenza, high dose seasonal, preservative-free 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[place] 07-26-2023 COVID-19 vaccine, ag e 12+ yr, season (MODERNA) Jair Fields MD Work Phone: [place] 01-10-2023 respiratory syncytia l virus (RSV) vaccine, adjuvanted (AREXVY) Jason Cook MD Work Phone: [place] 12-18-2022 COVID-19 vaccine, ag e 12+ yr, season (MODERNA) Jason Cook MD Work Phone: [place] 12-18-2022 influenza (HD-IIV4) vaccine, age 65+ yr, high dose, quadrivalent, PF (FLUZONE HIGH-DOSE) Jason Cook MD Work Phone: [place] 12-18-2022 influenza, high dose seasonal, preservative-free Jason Cook MD Work Phone: [place] 12-18-2022 influenza virus vaccine, unspecified formulation Josh Lynch MD Work Phone: [place] 12-23-2021 COVID-19 booster vaccine, age 12+ yr, bivalent (PFIZER-BIONTECH) Vero Strong MD Work Phone: [place] 12-23-2021 influenza (HD-IIV4) vaccine, age 65+ yr, high dose, quadrivalent, PF (FLUZONE HIGH-DOSE) Jason Cook MD Work Phone: [place] 12-23-2021 influenza, high dose seasonal, preservative-free Vero Strong MD Work Phone: [place] 07-16-2021 COVID-19 original vaccine, age 12+ yr, monovalent (PFIZER-BIONTECH - WETZEL TOP) Vero Strong MD Work Phone: [place] 01-17-2021 COVID-19 original vaccine, age 12+ yr, monovalent (PFIZER-BIONTECH - PURPLE TOP) Jason Cook MD Work Phone: [place] 01-17-2021 pneumococcal polysaccharide vaccine, 23 valent Vero Strong MD Work Phone: [place] 12-20-2020 influenza, high-dose , quadrivalent vaccine (FLUZONE HIGH DOSE QUADRIVALENT) Vero Strong MD Work Phone: [place] 06-05-2020 COVID-19 vaccine (MALIHA) Vero Strong MD Work Phone: [place] 02-01-2020 zoster vaccine recombinant Vero Strong MD Work Phone: [place] 12-29-2019 influenza, high-dose , quadrivalent vaccine (FLUZONE HIGH DOSE QUADRIVALENT) Vero Strong MD Work Phone: [place] 11-15-2019 zoster vaccine recombinant Vero Strong MD Work Phone: [place] 01-12-2019 influenza, high dose seasonal, preservative-free Vero Strong MD Work Phone: [place] 12-27-2017 influenza, high dose seasonal, preservative-free Vero Strong MD Work Phone: [place] Work Phone: 05-04-2017 influenza, high dose seasonal, preservative-free Vero Strong MD Work Phone: [place] 05-04-2017 pneumococcal polysaccharide vaccine, 23 valent Vero Strong MD Work Phone: [place] 05-04-2017 tetanus toxoid, redu jeri diphtheria toxoid, and acellular pertussis vaccine, adsorbed Vero Strong MD Work Phone: [place] 04-17-2016 influenza, injectabl e, quadrivalent, preservative free Dr. Jason Cook Work Phone: [facility] 04-17-2016 influenza, seasonal, injectable Vero Strong MD Work Phone: [place] 04-17-2016 influenza, seasonal, injectable, preservative free Vero Strong MD Work Phone: [place] 11-08-2014 pneumococcal conjuga te vaccine, 13 valent Vero Strong MD Work Phone: [place] 03-26-2014 influenza, injectabl e, quadrivalent, preservative free Dr. Jason Cook Work Phone: [facility] 03-26-2014 influenza, seasonal, injectable Vero Strong MD Work Phone: [place] 03-26-2014 influenza, seasonal, injectable, preservative free Vero Strong MD Work Phone: [place] 04-17-2013 influenza virus vaccine, unspecified formulation Vero Strong MD Work Phone: [place] 12-26-[address] Jason Cook Work Phone: [facility] 12-26-2012 influenza, seasonal, injectable Vero Strong MD Work Phone: [place] 12-26-2012 influenza, seasonal, injectable, preservative free Vero Strong MD Work Phone: [place] 04-19-2012 influenza virus vaccine, unspecified formulation Vero Strong MD Work Phone: [place] 04-19-2012 pneumococcal polysaccharide vaccine, 23 valent Vero Strong MD Work Phone: [place] 03-31-2011 influenza virus vaccine, unspecified formulation Vero Strong MD Work Phone: [place] 03-31-2011 zoster vaccine, live Vero Strong MD Work Phone: [place] 01-12-2010 influenza virus vaccine, unspecified formulation Vero Strong MD Work Phone: [place] 03-04-2008 influenza virus vaccine, unspecified formulation Vero Strong MD Work Phone: [place] 03-06-2007 tetanus toxoid, redu jeri diphtheria toxoid, and acellular pertussis vaccine, adsorbed Vero Strong MD Work Phone: [place] Work Phone: Payers Date Payer Category Payer Self-pay [id number] 2023 Self-pay [id number] 2015 Private Health Insurance [facility] AARP SUPPLEMENT [id number] 2015-Present [phone] [address] [place] [address] Indemnity [id number] 2015 Private Health Insurance [id number] 2015 Unknown [id number] 2014 Medicare MEDICARE MEDICAR E A AND B [id number] 2014-Present [phone] [address] [address] [place] [address] Medicare [id number] 2014 Medicare [id number] 2014 Medicare [id number] Medicare [id number] Unknown [id number] Unknown [id number] Unknown [id number] Unknown [id number] Unknown [id number] Unknown [id number] Unknown [id number] Unknown [id number] Unknown [id number] Unknown [id number] Unknown [id number] Unknown [id number] Social History Date Type Detail Facility Start: 04-05-2014 End: 11-30-2023 Tobacco smoking status NHIS Ex-smoker [place] End: 06-18-1987 History of tobacco use Current smoker [place] End: 06-18-1987 History of tobacco use Cigarette Smoker [place] Start: 04-05-2014 End: 11-30-2023 Tobacco use and exposure Smokeless tobacco non-user [place] Start: 05-13-2021 End: 06-01-2024 Alcohol intake Current drinker of alcohol (finding) [place] Start: 11-22-2019 End: 04-05-2022 History SDOH Alcohol Frequency 5 [place] Start: 11-22-2019 End: 04-05-2022 History SDOH Alcohol Std Drinks 1 [place] Start: 11-08-2016 History SDOH Alcohol Comment 1glass of wine a day [place] Start: 09-18-2019 End: 04-05-2022 History SDOH Social Connections Phone 4 [place] Start: 02-12-2019 End: 04-05-2022 History SDOH Social Connections Membership 2 [place] Start: 02-12-2019 End: 04-05-2022 History SDOH Social Connections Living 8 [place] Start: 09-18-2019 End: 04-05-2022 History SDOH Physical Activity MPS 3 [place] Start: 02-12-2019 Education 17 [place] Start: 03-04-2008 End: 11-11-2021 Tobacco Comment quit smoking 1987 [place] Start: 1950 Sex Assigned At Male C [facility] Start: 03-08-2020 End: 06-25-2021 Exposure to SARS-CoV-2 (event) Not sure [place] Start: 12-10-2021 End: 03-11-2023 Tobacco smoking status NHIS Unknown if ever smoked [facility] Start: 02-09-2019 None [facility] Start: 02-09-2019 Alone [facility] Start: 02-09-2019 Non-smoker [facility] Start: 11-04-2021 History SDOH Physica l Activity DPW 6 [place] Start: 04-05-2022 End: 11-17-2022 History of Social function [place] Start: 04-05-2022 End: 11-17-2022 Social connection and isolation panel [place] Do you belong to any clubs or organizations such as restorationist groups, unions, fraternal or athletic groups, or school groups? No [place] Are you now , , , , never or living with a partner? Living with partner [place] How often to you hav e a drink containing alcohol? 4 or more times a week [place] How many standard dr inks containing alcohol do you have on a typical day? 1 or 2 [place] How often do you hav e 6 or more drinks on 1 occasion? Never [place] How hard is it for y ou to pay for the very basics like food, housing, medical care, and heating Not hard at all [place] Do you feel stress - tense, restless, nervous, or anxious, or unable to sleep at night because your mind is troubled all the time - these days [OSQ] Only a little [place] (I/We) worried garrett er (my/our) food would run out before (I/we) got money to buy more. Never true [place] Start: 07-17-2018 Gender identity Identifies as male gender (finding) [place] Start: 07-17-2018 Sexual orientation Homosexual (findi ng) [place] How hard is it for y ou to pay for the very basics like food, housing, medical care, and heating Not very hard [place] Do you belong to any clubs or organizations such as restorationist groups, unions, [employer] or athletic groups, or school groups? Yes [place] Do you feel stress - tense, restless, nervous, or anxious, or unable to sleep at night because your mind is troubled all the time - these days [OSQ] To some extent [place] Medical Equipment Procedure Code Equipment Code Equipment Original Text Equipment Identifier Dates [place] Thk1.65mm P tfe 4x.5in Cardiovascular Sterile - [id number] Start: 11-12-2016 Goals Date Patient Goal Desired Activity /State Personal health goal Functional Status Date Assessment Result Facility 05-23-2024 Total score [AUDIT-C] 4 05/23/19 2:30 PM EST [facility], [facility] [place] 05-23-2024 Within the last year , have you been humiliated or emotionally abused in other ways by your partner or ex-partner? No 05/23/2024 2:30 PM EST User, [facility] 05-23-2024 Within the last year , have you been afraid of your partner or ex-partner? No 05/23/2024 2:30 PM EST [facility], [facility] 05-23-2024 Within the last year , have you been raped or forced to have any kind of sexual activity by your partner or ex-partner? No 05/23/2024 2:30 PM EST User, [facility] 05-23-2024 Within the last year , have you been kicked, hit, slapped, or otherwise physically hurt by your partner or ex-partner? No 05/23/2024 2:30 PM EST User, [facility] 05-23-2024 How often to you hav e a drink containing alcohol? 4 or more times a week 05/23/2024 2:30 PM EST User, My[facility] 4 or more times a week [place] 05-23-[address] inks containing alcohol do you have on a typical day? 1 or 2 05/23/2024 2:30 PM EST User, Mychart 1 or 2 [place] 05-23-2024 How often do you hav e 6 or more drinks on 1 occasion? Never 05/23/2024 2:30 PM EST User, Mychart Never [place] 11-21-2016 Are you deaf, or do you have serious difficulty hearing No 11/21/2016 10:31 AM Dianna Ambrosio APRN.CNP No [place] Work Phone: 11-21-2016 Are you blind, or do you have serious difficulty seeing, even when wearing glasses No 11/21/2016 10:31 AM Dianna Ambrosio APRN.CNP No [place] 11-21-2016 Do you have serious difficulty walking or climbing stairs No 11/21/2016 10:31 AM Dianna Ambrosio APRN.CNP No [place] 11-21-2016 Do you have difficul ty dressing or bathing No 11/21/2016 10:31 AM Dianna Ambrosio APRN.CNP No [place] 11-21-2016 Because of a physica l, mental, or emotional condition, do you have difficulty doing errands alone such as visiting a physician's office or shopping No 11/21/2016 10:31 AM Dianna Ambrosio APRN.CNP No [place] Mental Status Date Assessment Result Facility 11-21-2016 Because of a physica l, mental, or emotional condition, do you have serious difficulty concentrating, remembering, or making decisions No 11/21/2016 10:31 AM Dianna Ambrosio APRN.CNP No [facility] Notes 10-26-2016 to 07-26-2024 Patient InstructionsJessica Moran APRN.FATUMA - 07/26/2024 1:00 PM EDTTelephone Encounter - Toña Bustillos [facility] - 06/29/2024 1:17 PM Cinthya Jones APRN.PRODUCTION TEAM MANAGER - 06/26/2024 9:00 AM EDT Note Date & Type Note Facility 07-26-2024 Instructions LuisaJessica APRN.PRODUCTION TEAM MANAGER - 07/26/2024 1:16 PM EDT Images from the original note were not included. Sleep Apnea What is sleep apnea? Sleep apnea is a serious sleep disorder that occurs when a person s breathing is interrupted during sleep. People with untreated sleep apnea stop breathing repeatedly during their sleep, sometimes hundreds of times during the night. There are two types of sleep apnea: obstructive and central. Obstructive sleep apnea (JONAH) is the more common of the two. Obstructive sleep apnea occurs as repetitive episodes of complete or partial upper airway blockage during sleep. During an apnea episode, the diaphragm and chest muscles work harder as the pressure increases to open the airway. Breathing usually resumes with a loud gasp or body jerk. These episodes can interfere with sound sleep, reduce the flow of oxygen to vital organs, and cause heart rhythm irregularities. In central sleep apnea (CSA), the airway is not blocked but the brain fails to signal the muscles to breathe due to instability in the respiratory control center. Central apnea is named as such because it is related to the function of the central nervous system. Who gets sleep apnea? Sleep apnea occurs in about 25 percent of men and nearly 10 percent of women. Sleep apnea can affect people of all ages, including babies and children and particularly people over the age of forty and those who are overweight. Certain physical traits and clinical features are common in patients with obstructive sleep apnea. These include excessive weight, large neck, and structural abnormalities reducing the diameter of the upper airway, such as nasal obstruction, a low-hanging soft palate, enlarged tonsils, or a small jaw with an overbite. The figures below illustrate the upper airway in normal sleep: (A) person is lying on back, face up, and (B) in obstructive sleep apnea. The arrows indicate complete obstruction in the back of the throat. Normal (A) Sleep apnea (B): What causes sleep apnea? Obstructive sleep apnea is caused by a blockage of the airway, usually when the soft tissues in the rear of the throat collapse during sleep. Central sleep apnea is usually observed in patients with central nervous system dysfunction, such as following a stroke or in patients with neuromuscular diseases like amyotrophic lateral sclerosis. It is also common in patients with heart failure and other forms of cardiac and pulmonary disease. What are the symptoms of sleep apnea? Often the first signs of obstructive sleep apnea are recognized not by the patient, but by the bed partner. Many of those affected have no sleep complaints. The most common symptoms of JONAH include: Snoring Daytime sleepiness or fatigue Restlessness during sleep Sudden awakenings with a sensation of gasping or choking Dry mouth or sore throat upon awakening Intellectual impairment, such as trouble concentrating, forgetfulness, or irritability Night sweats Sexual dysfunction Headaches People with central sleep apnea more often report recurrent awakenings or insomnia, although they may also experience a choking or gasping sensation with sudden awakenings. Symptoms in children may not be as obvious and include: Poor school performance Sluggishness or sleepiness, often misinterpreted as laziness in the classroom Daytime mouth breathing and swallowing difficulty Inward movement of the ribcage when inhaling Unusual sleeping positions, such as sleeping on the hands and knees, or with the neck hyper-extended Excessive sweating at night Learning and behavioral disorders Bedwetting What are the effects of sleep apnea? If left untreated, sleep apnea can result in a number of health problems including hypertension, stroke, arrhythmias, cardiomyopathy (enlargement of the muscle tissue of the heart), congestive heart failure, diabetes, and heart attacks. In addition, untreated sleep apnea may be responsible for job impairment, work-related accidents, and motor vehicle crashes as well as academic underachievement. How is sleep apnea diagnosed? The diagnosis of sleep apnea is relatively straightforward, based on sleep history and an overnight sleep study called a polysomnogram. Polysomnogram is performed in a sleep laboratory under the direct supervision of a trained technologist. During the test, a variety of body functions, such as the electrical activity of the brain, eye movements, muscle activity, heart rate, breathing patterns, air flow, and blood oxygen levels are recorded at night during sleep. After the study is completed, the number of times breathing is impaired during sleep is tallied and the severity of sleep apnea is graded. In some cases, a multiple sleep latency test is performed on the day after the overnight test to measure the speed of falling asleep. In this test, patients are given several opportunities to fall asleep during the course of a day when they normally would be awake. If you have symptoms of sleep apnea, your doctor may ask you to have a sleep evaluation in a sleep disorder center. What are the treatments for sleep apnea? Conservative treatments: In mild cases of sleep apnea, conservative therapy may be all that is needed. Overweight persons can benefit from losing weight. Even a ten percent weight loss can reduce the number of apneic events for most patients. Individuals with apnea should avoid the use of alcohol and sleeping pills, which make the airway more likely to collapse during sleep and prolong the apneic periods. In some patients with mild sleep apnea, breathing pauses occur only when they sleep on their backs. In such cases, using pillows and other devices that help them sleep in a side position may be helpful. People with sinus problems or nasal congestion (such people are more likely to experience sleep apnea) should use nasal sprays or breathing strips to reduce snoring and improve airflow for more comfortable nighttime breathing. Avoiding sleep deprivation is important for all patients with sleep disorders. Mechanical therapy: Continuous Positive Airway Pressure (CPAP) is the preferred initial treatment for most people with obstructive sleep apnea. With CPAP, patients wear a mask over their nose and/or mouth. An air blower forces air through the nose and/or mouth. The air pressure is adjusted so that it is just enough to prevent the upper airway tissues from collapsing during sleep. The pressure is constant and continuous. CPAP prevents airway closure while in use, but apnea episodes return when CPAP is stopped or it is used improperly. Other styles and types of positive airway pressure devices are available for people who have difficulty tolerating CPAP. These include Bilevel Positive Airway Pressure (BiPAP), Auto Positive Airway Pressure (AutoPAP), Auto/Adaptive Servo-Ventilation (ASV), etc Oral appliances: For patients with mild/moderate sleep apnea, dental appliances or oral mandibular advancement devices that prevent the tongue from blocking the throat and/or advance the lower jaw forward can be made. These devices help keep the airway open during sleep. A sleep specialist and maid cleaning cooking (with expertise in oral appliances for this purpose) should jointly determine if this treatment is best for you. Surgery: Surgical procedures may help people with sleep apnea. There are many types of surgical procedures, some of which are performed as outpatient procedures. Surgery is reserved for people who have excessive or malformed tissue obstructing airflow through the nose or throat, such as a deviated nasal septum, markedly enlarged tonsils, or small lower jaw with an overbite that causes the throat to be abnormally narrow. These procedures are typically performed after sleep apnea has failed to respond to conservative measures and a trial of positive airway pressure treatment. Types of surgery include: Somnoplasty: A minimally invasive procedure that uses radiofrequency energy to reduce the soft tissue in the upper airway. Uvulopalatopharyngoplasty (UPPP): A procedure that removes soft tissue on the back of the throat and palate, increasing the width of the airway at the throat opening. Maxillary/Mandibular advancement surgery: A surgical correction of certain facial abnormalities or throat obstructions that contribute to sleep apnea. This is an invasive procedure that is reserved for patients with severe sleep apnea with head-face abnormalities. Nasal surgery: Correction of nasal obstructions, such as a deviated septum. Hypoglossal nerve stimulator: FDA approved 2013. (Implant that sends a lead that goes to bottom of tongue to stimulate it forward out of the area of the back of the throat) Resources: The [place] Guide to Sleep Disorders by Mana Ahn DO [facility] [address] [place] [address] [place] [id number] [email or web address].org/ [employer] [facility] [address] [place] [address], [address] [place] [address] http://www.sleepapnea.org/ Your home sleep study showed a mild sleep apnea result (AHI 5.7). You chose not to start CPAP treatment at this time. Continue to monitor your sleep and note if you experience any changes such as increased snoring, episodes of choking or gasping, or if you find yourself waking up more frequently at night (for example, needing to urinate more often), or BP not controlled. If you notice these changes or feel that your sleep quality is worsening, contact our office for further evaluation, which may include an in-lab sleep study scheduled at a facility that can accommodate your normal bedtime. A follow-up appointment is scheduled in 6 months (around January); if your symptoms change before then, please send a [employer] message. documented in this encounter [facility] 07-26-2024 History of Present illness Narrative Images from the original note were not included. [facility] New Patient Evaluation PATIENT NAME: Curtis Guerrier DATE OF SERVICE: July 26, 2024 CONSULTING PROVIDER: Jason Cook [address] [facility] [address] REASON FOR CONSULT: Jason Cook sends the patient for an opinion about JONAH. My findings and recommendations will be transmitted electronically via shared medical record to the consulting provider. Recording using [employer] software for draft documentation of the visit was discussed with the patient/authorized client care representative; all questions welcomed and answered. Patient/authorized client care representative agreed to proceed HPI: Curtis Guerrier is a 74 year old male. Sleep-related history: JONAH Patient Questionnaires Sleep Scores 07/19/2024 Sleep Questions Reason for visit: Sleep apnea On average, hours of sleep in 24 hours: 7.5 Accidents or near accidents due to drowsy drivin 07/19/2024 [place] Sleepiness Scale Score 6 (No clinically significant daytime sleepiness) 07/19/2024 PROMIS CAT Sleep Disturbance PROMIS Sleep Disturbance T-Score 47 (within normal limits) PROMIS Sleep Disturbance Percentile 62 07/19/2024 PHQ-9 Score 4 05/23/2024 PROMIS Global Health - (T-Scores - the mean of general population = 50. Five points is a clinically meaningful difference.) Physical T-Score 47.7 Mental T-Score 53.3 PAST TREATMENTS: None PRIOR SLEEP STUDIES: A Home Sleep Test (HST) performed on 05/25/24 revealed an AHI of 5.7; supine index of 5.8; and a minimum oxygen saturation of 87%. BMI 36 OTHER RELEVANT LABS AND STUDIES: 04/30/24 Echo EF 60% PAST MEDICAL HISTORY Diagnosis Date Acute deep vein thrombosis (DVT) of right lower extremity (HCC) 09/27/2017 Arthritis BPH (benign prostatic hypertrophy) with urinary obstruction 10/10/2013 Calculus of kidney Coronary artery disease 2016 Stent 1 Diverticulitis Essential hypertension, benign GERD (gastroesophageal reflux disease) History of coronary artery stent placement 2016 Hypercalciuria 06/26/2012 Hypercholesterolemia Hyperlipidemia LDL goal < 100 04/17/2013 JONAH (obstructive sleep apnea) 06/01/2024 Other and unspecified hyperlipidemia Prostatic hypertrophy 2016 benign with outflow obstruction 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 Reports history of possible TIA PAST SURGICAL HISTORY Procedure Laterality Date BACK SURGERY HX CABG (4) VEIN GRAFTS & ARTERIAL GRAFT(S) 10/2016 COLON SURGERY HX COLONOSCOPY 05/28/2014 Diverticular disease- repeat in 2024 COLONOSCOPY FLX DX W/COLLJ SPEC WHEN PFRMD 02/12/2002 Colonoscopy-repeat in COLONOSCOPY FLX DX W/COLLJ SPEC WHEN PFRMD 04/26/2017 Colonoscopy ESOPHAGOGASTRODUODENOSCOPY TRANSORAL DIAGNOSTIC 04/26/2017 EGD EYE SURGERY HX FISSURECTOMY INCL SPHINCTEROTOMY WHEN PERFORMED HEART SURGERY HX HERNIA REPAIR HX LAPS COLECTOMY PRTL W/COLOPXTSTMY LW ANAST 04/14/2016 with mobilization of splenic flexure for diverticulitis PAST SURGICAL HISTORY OF 1982 lower back herniated disc PAST SURGICAL HISTORY OF 2005 low back surgery PAST SURGICAL HISTORY OF 04/04/2015 cardiac stent insertion PAST SURGICAL HISTORY OF 03/2016 colon resection PAST SURGICAL HISTORY OF 03/2024 Injection into larynx at [place] [facility] REVISE MEDIAN N/CARPAL TUNNEL SURG Bilateral 06/12/2020 Bilateral carpal tunnel release RPR 1ST INGUN HRNA AGE 4 YRS/> REDUCIBLE Hernia repair, inguinal w/ mesh - right TONSILLECTOMY PRIMARY/SECONDARY <AGE 11 Tonsillectomy ACTIVE PROBLEM LIST Primary Hypertension Hearing Loss Hypercalciuria Hyperlipidemia With Target Ldl Less Than 100 History of Kidney Stones Benign Prostatic Hyperplasia With Urinary Obstruction Gerd (Gastroesophageal Reflux Disease) Presence of Drug Coated 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 Coronary Artery Lipid Disorder Ashd (Arteriosclerotic Heart Disease) S/P Cabg X 4 Family History of Prostate Cancer Osteoarthritis of Spine With Radiculopathy, Cervical Region Lumbar Radiculopathy Paroxysmal Atrial Fibrillation (Hcc) History of Squamous Cell Carcinoma Coronary Artery Disease Involving Eyak Coronary Artery of Eyak Heart Without Angina Pectoris Obesity, Class II, Bmi 35-39.9 Jonah (Obstructive Sleep Apnea) Allergies As of Date: 07/26/2024 Allergen Noted Reaction IV CONTRAST [IODINE] 06/04/2019 Angioedema LIPITOR [ATORVASTATIN CALCIUM] 03/06/2007 LOVASTATIN 03/06/2007 [id number] REDUCTASE INHIBIT*04/05/2011 Other: See Comments and Myalgia Fully Assessed 07/26/2024 CURRENT MEDICATIONS: hydroCHLOROthiazide 25 mg tablet Take 1 tablet by mouth once daily. losartan (COZAAR) 100 mg tablet Take 1 tablet by mouth once daily. rosuvastatin (CRESTOR) 40 mg tablet Take 1 tablet by mouth daily at bedtime. omeprazole (PRILOSEC) 20 mg capsule Take 1 capsule by mouth once daily. metoprolol tartrate, short acting, (LOPRESSOR) 50 mg tablet Take 1 tablet by mouth two times a day. Psyllium Seed-Sucrose (METAMUCIL, SUGAR,) Take by mouth once daily. sildenafil (VIAGRA) 50 mg tablet Take 1 tablet by mouth as needed. apixaban (ELIQUIS) 5 mg tab(s) Take 1 tablet by mouth twice daily. acetaminophen (TYLENOL ORAL) Take by mouth as needed. aspirin 81 mg chewable tablet Take 1 tablet by mouth once daily. therapeutic multivitamin (THERA VITAMIN) tablet Take 1 tablet by mouth daily with breakfast. albuterol HFA (PROVENTIL HFA, VENTOLIN HFA) 90 mcg/actuation inhaler Inhale 2 Puffs as instructed every 6 hours as needed for wheezing/shortness of breath. Review of Systems Head: (-) headaches Ears/Nose/Mouth/Throat: (+) snoring, (-) congestion, (-) bruxism Cardiovascular: (+) palpitations Respiratory: (-) witnessed apneic episodes Gastrointestinal: (-) heartburn Genitourinary: (+) nocturia Neurological: (-) memory/concentration difficulty, (-) restless legs, (-) dream enactment, (-) sleep paralysis Psychiatric: (+) occasional nighttime anxiety SOCIAL HISTORY: Social History Tobacco Use Smoking status: Former Current packs/day: 0.00 Types: Cigarettes Quit date: 06/18/1987 Years since quittin.1 Smokeless tobacco: Never Tobacco comments: quit smoking 1987 Vaping Use Vaping status: Never Used Substance Use Topics Alcohol use: Yes Alcohol/week: 7.0 standard drinks of alcohol Types: 7 Glasses of wine per week Drug use: Never FAMILY HISTORY: FAMILY HISTORY Problem Relation Age of Onset Heart Mother from CVA at age 75, CABG Hypertension Father other (pancreatic cancer) Sister Coronary Artery Disease Sister Prostate Cancer Brother Coronary Artery Disease Brother stents Cancer Maternal Grandmother Parkinson s Disease Maternal Grandfather No Known Problems Paternal Grandmother Cancer Paternal Grandfather There is no family history of sleep disorders. PHYSICAL EXAMINATION: Vital Signs: BP 158/78 Pulse 64 Resp 18 Wt 103.8 kg (228 lb 14.4 oz) SpO2 100% BMI 38.94 kg/m PHYSICAL EXAM: General appearance: pleasant, NAD Mental status: alert and oriented, able to provide own history Constitutional: obese Skin: No visible rashes on exposed skin Neuro: No focal deficits observed, no tremors ENT : Posterior airspace: Angela tongue position 3. High arched palate present. Tongue scalloping/ridging present. Uvula: normal IMPRESSION/PLAN: G47.33 JONAH (obstructive sleep apnea) (primary encounter diagnosis) E66.812 Obesity, Class II, BMI 35-39.9 I10 Primary hypertension Curtis Guerrier is a 74 year old male with recent dx of at least mild JONAH in the setting of PMH of HTN, obesity, GERD, HLD, CAD with stent, hx stroke, hx CABG, hx DVT, arthritis 1. JONAH (obstructive sleep apnea) (G47.33) Home sleep study revealed an AHI of 5.7, indicating mild obstructive sleep apnea. Oxygen saturation remained predominantly in the 90s, with minimal time spent in the 80s. Patient experiences mild snoring and occasional nocturia but reports feeling well-rested and maintains a regular sleep schedule. - Discussed the anatomy of the upper airway and its role in JONAH. - Educated on the potential risks of untreated JONAH, including cardiovascular complications. - Agreed to monitor for any worsening symptoms such as increased snoring, nocturia, or daytime sleepiness. - Schedule an in-lab sleep study in 6 months to obtain more accurate data. - Follow-up in 6 months to reassess symptoms, we will likely order an in-lab PSG then to determine true severity of JONAH considering his hx of cardiovascular/cerebrovascular disease 2. Obesity, Class II, BMI 35-39.9 (E66.812) Contributing factor to JONAH. Patient has a long history of weight fluctuations and acknowledges the challenge of weight management. - Discussed the impact of obesity on JONAH and overall health. 3. Primary hypertension (I10) Well-controlled on current medication regimen. Patient is on three antihypertensive medications. - Continue current antihypertensive medications. - Monitor blood pressure regularly. - Discussed the potential impact of untreated JONAH on blood pressure control. Jessica Moran APRN.CNP I spent a total of 47 minutes on the date of the service which included preparing to see the patient, [id number] patient care, completing clinical documentation, obtaining and/or reviewing separately obtained history, performing a medically appropriate examination, and counseling and educating the patient/family/caregiver. documented in this encounter [facility] 07-26-2024 Note HNO ID: [id number] Author: JESSICA MORAN APRN.CNP Service: ? Author Type: Nurse Practitioner Type: Progress Notes Filed: 07/26/2024 13:57 Note Text: [facility] New Patient Evaluation PATIENT NAME: Curtis Guerrier DATE OF SERVICE: July 26, 2024 CONSULTING PROVIDER: Jason Cook [address] [facility] [address] REASON FOR CONSULT: Jason Cook sends the patient for an opinion about JONAH. My findings and recommendations will be transmitted electronically via shared medical record to the consulting provider. Recording using [employer] software for draft documentation of the visit was discussed with the patient/authorized client care representative; all questions welcomed and answered. Patient/authorized client care representative agreed to proceed HPI: Curtis Guerrier is a 74 year old male. Sleep-related history: JONAH Patient Questionnaires Sleep Scores 07/19/2024 Sleep Questions Reason for visit: Sleep apnea On average, hours of sleep in 24 hours: 7.5 Accidents or near accidents due to drowsy drivin 07/19/2024 [place] Sleepiness Scale Score 6 (No clinically significant daytime sleepiness) 07/19/2024 PROMIS CAT Sleep Disturbance PROMIS Sleep Disturbance T-Score 47 (within normal limits) PROMIS Sleep Disturbance Percentile 62 07/19/2024 PHQ-9 Score 4 05/23/2024 PROMIS Global Health - (T-Scores - the mean of general population = 50. Five points is a clinically meaningful difference.) Physical T-Score 47.7 Mental T-Score 53.3 PAST TREATMENTS: None PRIOR SLEEP STUDIES: A Home Sleep Test (HST) performed on 05/25/24 revealed an AHI of 5.7; supine index of 5.8; and a minimum oxygen saturation of 87%. BMI 36 OTHER RELEVANT LABS AND STUDIES: 04/30/24 Echo EF 60% PAST MEDICAL HISTORY Diagnosis Date Acute deep vein thrombosis (DVT) of right lower extremity (HCC) 09/27/2017 Arthritis BPH (benign prostatic hypertrophy) with urinary obstruction 10/10/2013 Calculus of kidney Coronary artery disease 2016 Stent ?1 Diverticulitis Essential hypertension, benign GERD (gastroesophageal reflux disease) History of coronary artery stent placement 2016 Hypercalciuria 06/26/2012 Hypercholesterolemia Hyperlipidemia LDL goal < 100 04/17/2013 JONAH (obstructive sleep apnea) 06/01/2024 Other and unspecified hyperlipidemia Prostatic hypertrophy 2016 benign with outflow obstruction S/P CABG x 4 05/04/2017 [employer] workers comp claim Severe obesity with body mass index (BMI) of 35.0 to 35.9 and comorbidity (HCC) Snoring no JONAH Squamous cell skin cancer 05/13/2021 Stroke [facility] patient denies diagnosis of stroke. Reports history of possible TIA PAST SURGICAL HISTORY Procedure Laterality Date BACK SURGERY HX CABG (4) VEIN GRAFTS AND ARTERIAL GRAFT(S) 10/2016 COLON SURGERY HX COLONOSCOPY 05/28/2014 Diverticular disease- repeat in 2024 COLONOSCOPY FLX DX W/COLLJ SPEC WHEN PFRMD 02/12/2002 Colonoscopy-repeat in -2011 COLONOSCOPY FLX DX W/COLLJ SPEC WHEN PFRMD 04/26/2017 Colonoscopy ESOPHAGOGASTRODUODENOSCOPY TRANSORAL DIAGNOSTIC 04/26/2017 EGD EYE SURGERY HX FISSURECTOMY INCL SPHINCTEROTOMY WHEN PERFORMED HEART SURGERY HX HERNIA REPAIR HX LAPS COLECTOMY PRTL W/COLOPXTSTMY LW ANAST 04/14/2016 with mobilization of splenic flexure for diverticulitis PAST SURGICAL HISTORY OF 1982 lower back herniated disc PAST SURGICAL HISTORY OF 2005 low back surgery PAST SURGICAL HISTORY OF 04/04/2015 cardiac stent insertion PAST SURGICAL HISTORY OF 03/2016 colon resection PAST SURGICAL HISTORY OF 03/2024 Injection into larynx at [place] [facility] REVISE MEDIAN N/CARPAL TUNNEL SURG Bilateral 06/12/2020 Bilateral carpal tunnel release RPR 1ST INGUN HRNA AGE 4 YRS/> REDUCIBLE Hernia repair, inguinal w/ mesh - right TONSILLECTOMY PRIMARY/SECONDARY Tonsillectomy ACTIVE PROBLEM LIST Primary Hypertension Hearing Loss Hypercalciuria Hyperlipidemia With Target Ldl Less Than 100 History of Kidney Stones Benign Prostatic Hyperplasia With Urinary Obstruction Gerd (Gastroesophageal Reflux Disease) Presence of Drug Coated 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 Coronary Artery Lipid Disorder Ashd (Arteriosclerotic Heart Disease) S/P Cabg X 4 Family History of Prostate Cancer Osteoarthritis of Spine With Radiculopathy, Cervical Region Lumbar Radiculopathy Paroxysmal Atrial Fibrillation (Hcc) History of Squamous Cell Carcinoma Coronary Artery Disease Involving Eyak Coronary Artery of Eyak Heart Without Angina Pectoris Obesity, Class II, Bmi 35-39.9 Jonah (Obstructive Sleep Apnea) Allergies As of Date: 07/26/2024 Allergen Noted Reaction IV CONTRAST [IODINE] 06/04/2019 Angioedema LIPITOR [ATORVASTATIN CALCIUM] 03/06/2007 LOVASTATIN 03/06/2007 [id number] REDUCTASE INHIBIT*04/05/2011 Other: See Comments and Myalgia Fully Assessed 07/26/2024 CURRENT MEDICATIONS: hydroCHLOROthiazide 25 mg tablet Take 1 tablet by mouth (more content not included)... [facility] 07-23-2024 Note HNO ID: [id number] Author: LEIGHTON WARD MD Service: ? Author Type: Physician Type: Progress Notes Filed: 07/23/2024 07:55 Note Text: Patient returns for follow up skin check Last visit was 1 year ago. Personal History: SCC-right amish 2021 Family History: no No new concerns MEDICAL HX: No significant changes PHYSICAL EXAM: The patient is pleasant, oriented x 3, in no acute distress. Exam performed of the scalp, face, neck, chest, back, abdomen, arms, legs, and buttock. Significant findings noted below, otherwise no suspicious lesions noted at this time. Arms and Legs, Left Buttock, Photodistributed, Right Buttock, Scalp, Trunk Findings as follows: Abdomen (Lower Torso, Anterior), Chest (Upper Torso, Anterior), Head, Left Arm, Left Leg, Neck, Right Arm, Right Leg, Scalp, Torso - Posterior (Back) Diffusely scattered reed macules and patches on sun exposed areas. Left Parietal Scalp 4 x 4 bluish hernandez macule Left Parietal Scalp, Right Parietal Scalp (2) Focal areas of gritty adherent scale. Torso - Posterior (Back) Brown flat-topped papule. IMPRESSION/PLAN: SKIN EXAM, SCREENING FOR CANCER (6) Arms and Legs, Left Buttock, Photodistributed, Right Buttock, Scalp, Trunk The nature of sun-induced photo-aging and skin cancers is discussed. Sun avoidance, protective clothing, and the use of 30-SPF or higher sunscreens is advised. Must be used every 2-3 hours when in the sun continuously. Patient is instructed to perform regular self exams. Observe for changing, symptomatic, or new skin lesions and seek care with the patient's primary care provider or with dermatology if any lesions of concern are noted DIFFUSE PHOTODAMAGE OF SKIN (10) Abdomen (Lower Torso, Anterior), Chest (Upper Torso, Anterior), Head, Left Arm, Left Leg, Neck, Right Arm, Right Leg, Scalp, Torso - Posterior (Back) Diffuse photodamage of skin Sun protection and avoidance discussed with patient BLUE NEVUS Left Parietal Scalp Continue to monitor HX OF NONMELANOMA SKIN CANCER AK (ACTINIC KERATOSIS) (3) Left Parietal Scalp, Right Parietal Scalp (2) The gold standard is to treat pre cancerous lesions. This is in addition to evaluation and management of other areas on the skin. Discussion regarding actinic keratosis treatment: Photodynamic therapy vs chemical (Efudex) vs cryotherapy. Potential side effects. Patient prefers and agrees to cryo treatment. CRYOTHERAPY SKIN LESION - Left Parietal Scalp, Right Parietal Scalp (2) Complexity: simple Destruction method: cryotherapy Destruction method comment: X3 Informed consent: discussed and consent obtained Informed consent comment: Risk of hypopigmentation and recurrence of lesion(s) discussed. Timeout: patient name, date of , surgical site, and procedure verified Lesion destroyed using liquid nitrogen: Yes Region frozen until ice ball extended beyond lesion: Yes Outcome: patient tolerated procedure well with no complications Post-procedure details: wound care instructions given SEBORRHEIC KERATOSIS Torso - Posterior (Back) -Patient reassured of benign nature of lesion(s). FOLLOW UP: 12 month skin check. The documentation for this note was completed by ZACH Flor acting as scribe for Leighton Ward MD. July 23, 2024 7:32 AM. The HPI, PMH, EXAM, Findings/plan that were documented by my electrician's assistant, who was scribing during the encounter, were confirmed by me and I agree with the content of these sections. I have made any required additions or deletions to the HPI/PFSH/exam/findings/plan as needed. The physical exam and any procedures were performed by me, unless otherwise noted. Leighton Ward MD Medical Decision Making: Problems: Low: 2+ self-limited or minor problems Risk: Low: Low risk from testing/treatment Medical Decision Making Level: 3 - Low [facility] 06-29-2024 Telephone encounter Note Please see patient message regarding delay in delivery. Pended if provider agreeable. ZACH Clayton [place] 06-29-2024 Miscellaneous Notes Please see patient message regarding delay in delivery. Pended if provider agreeable. ZACH Clayton documented in this encounter [place] 06-26-2024 History of Present illness Narrative FOLLOW UP VISIT - ENDOSCOPY Curtis Guerrier 1950 [id number] REFERRING PHYSICIAN: No referring provider defined for this encounter. Curtis Guerrier is a patient I am following for dysphagia. Dr. Newton performed upper endoscopy on 06/19/24. The patient was found to have Impression: - Normal first portion of the duodenum and second portion of the duodenum. - Erythematous mucosa in the antrum. Biopsied. - Small to Medium-sized, small hiatal hernia. Biopsied at GE junction and mid esophagus for EE Pathology demonstrated: FINAL DIAGNOSIS A. Stomach, antrum, biopsy: - Mild chronic and patchy active gastritis with reactive epithelial changes, see comment. - Negative for intestinal metaplasia. B. Gastroesophageal junction, biopsy: - Squamous esophageal mucosa and mildly inflamed gastric cardiofundic-type mucosa; negative for intestinal metaplasia. C. Esophagus, mid, biopsy: - Squamous esophageal mucosa with no significant pathologic change. The Helicobacter pylori immunohistochemical stain is negative for Helicobacter pylori organisms. The final diagnosis remains unchanged. The patient notes no complaints since the procedure. Curtis notes that he started taking his prilosec daily and his symptoms have resolved. VITALS: There were no vitals taken for this visit. General: patient is alert, cooperative, pleasant and in no acute distress On examination, the abdomen is benign. Assessment ASSESSMENT/PLAN: 1. Gastroesophageal reflux disease without esophagitis - ICD9: 530.81, ICD10: K21.9 - Discussed lifestyle modifications including losing weight, limiting caffeine, no meals three hours before sleep, and head of bed elevation - Continue treatment with Prilosec 40 mg every day 2. Hiatal hernia - ICD9: 553.3, ICD10: K44.9 - same as above The operative findings and pathology report were reviewed with the patient, and the patient has had the opportunity to ask questions and have questions answered. If the patient notes any problems or changes in bowel function, the patient should contact me immediately. Otherwise I recommend follow up endoscopy as symptoms dictate or in 5 years if still taking a PPI. recall letter generated. Discussed treatment plan and patient voices understanding. Patient's questions answered appropriately. Medications and potential side effects were discussed and patient voices understanding. Return to the office as scheduled or as needed for worsening/no improvement. Cinthya Ortiz APRN.FATUMA documented in this encounter [place] 06-26-2024 Note HNO ID: [id number] Author: CINTHYA ORTIZ APRN.FATUMA Service: ? Author Type: Nurse Practitioner Type: Progress Notes Filed: 06/26/2024 10:10 Note Text: FOLLOW UP VISIT - ENDOSCOPY Curtis Guerrier 1950 [id number] REFERRING PHYSICIAN: No referring provider defined for this encounter. Curtis Guerrier is a patient I am following for dysphagia. Dr. Newton performed upper endoscopy on 06/19/24. The patient was found to have Impression: - Normal first portion of the duodenum and second portion of the duodenum. - Erythematous mucosa in the antrum. Biopsied. - Small to Medium-sized, small hiatal hernia. Biopsied at GE junction and mid esophagus for EE Pathology demonstrated: FINAL DIAGNOSIS A. Stomach, antrum, biopsy: - Mild chronic and patchy active gastritis with reactive epithelial changes, see comment. - Negative for intestinal metaplasia. B. Gastroesophageal junction, biopsy: - Squamous esophageal mucosa and mildly inflamed gastric cardiofundic-type mucosa; negative for intestinal metaplasia. C. Esophagus, mid, biopsy: - Squamous esophageal mucosa with no significant pathologic change. The Helicobacter pylori immunohistochemical stain is negative for Helicobacter pylori organisms. The final diagnosis remains unchanged. The patient notes no complaints since the procedure. Curtis notes that he started taking his prilosec daily and his symptoms have resolved. VITALS: There were no vitals taken for this visit. General: patient is alert, cooperative, pleasant and in no acute distress On examination, the abdomen is benign. Assessment ASSESSMENT/PLAN: 1. Gastroesophageal reflux disease without esophagitis - ICD9: 530.81, ICD10: K21.9 - Discussed lifestyle modifications including losing weight, limiting caffeine, no meals three hours before sleep, and head of bed elevation - Continue treatment with Prilosec 40 mg every day 2. Hiatal hernia - ICD9: 553.3, ICD10: K44.9 - same as above The operative findings and pathology report were reviewed with the patient, and the patient has had the opportunity to ask questions and have questions answered. If the patient notes any problems or changes in bowel function, the patient should contact me immediately. Otherwise I recommend follow up endoscopy as symptoms dictate or in 5 years if still taking a PPI. recall letter generated. Discussed treatment plan and patient voices understanding. Patient's questions answered appropriately. Medications and potential side effects were discussed and patient voices understanding. Return to the office as scheduled or as needed for worsening/no improvement. Cinthya Ortiz APRN.PRODUCTION TEAM MANAGER [facility] 06-19-2024 Note Formatting of this n ote might be different from the original. The patient received a copy of EGD discharge instructions that contain information for how to contact the physician who performed the procedure and when to seek medical care. [place] 06-19-2024 Miscellaneous Notes The patient received a copy of EGD discharge instructions that contain information for how to contact the physician who performed the procedure and when to seek medical care. documented in this encounter [facility] 06-19-2024 History and physical note HISTORY AND PHYSICAL Curtis Guerrier 1950 REFERRING PHYSICIAN: Jason Cook MD CHIEF COMPLAINT: Consult HPI: The patient is a 74 year old male referred for endoscopy. Curtis notes esophageal dysphagia. He states that this usually occurs with dry meats. He states that this has been going on for years. He last had an EGD in 2018 - no Gamboa's found. He also notes sharp upper abdominal pain, usually lasting a few minutes, usually occurring after eating a large meal. He was taking omeprazole intermittently; at present for the past several weeks, as directed by his physician, he is taking it daily which is helping somewhat. Denies hematemesis. Denies weight loss. PAST MEDICAL HISTORY PAST MEDICAL HISTORY Diagnosis Date Acute deep vein thrombosis (DVT) of right lower extremity (HCC) 09/27/2017 Arthritis BPH (benign prostatic hypertrophy) with urinary obstruction 10/10/2013 Calculus of kidney Coronary artery disease 2016 Stent 1 Diverticulitis Essential hypertension, benign GERD (gastroesophageal reflux disease) History of coronary artery stent placement 2016 Hypercalciuria 06/26/2012 Hypercholesterolemia Hyperlipidemia LDL goal < 100 04/17/2013 JONAH (obstructive sleep apnea) 06/01/2024 Other and unspecified hyperlipidemia Prostatic hypertrophy 2016 benign with outflow obstruction S/P CABG x 4 05/04/2017 [employer] workers comp claim Severe obesity with body mass index (BMI) of 35.0 to 35.9 and comorbidity (HCC) Snoring no JONAH Squamous cell skin cancer 05/13/2021 Stroke ([facility] patient denies diagnosis of stroke. Reports history of possible TIA PAST SURGICAL HISTORY PAST SURGICAL HISTORY Procedure Laterality Date BACK SURGERY HX CABG (4) VEIN GRAFTS & ARTERIAL GRAFT(S) 10/2016 COLON SURGERY HX COLONOSCOPY 05/28/2014 Diverticular disease- repeat in 2024 COLONOSCOPY FLX DX W/COLLJ SPEC WHEN PFRMD 02/12/2002 Colonoscopy-repeat in COLONOSCOPY FLX DX W/COLLJ SPEC WHEN PFRMD 04/26/2017 Colonoscopy ESOPHAGOGASTRODUODENOSCOPY TRANSORAL DIAGNOSTIC 04/26/2017 EGD EYE SURGERY HX FISSURECTOMY INCL SPHINCTEROTOMY WHEN PERFORMED HEART SURGERY HX HERNIA REPAIR HX LAPS COLECTOMY PRTL W/COLOPXTSTMY LW ANAST 04/14/2016 with mobilization of splenic flexure for diverticulitis PAST SURGICAL HISTORY OF 1982 lower back herniated disc PAST SURGICAL HISTORY OF 2005 low back surgery PAST SURGICAL HISTORY OF 04/04/2015 cardiac stent insertion PAST SURGICAL HISTORY OF 03/2016 colon resection PAST SURGICAL HISTORY OF 03/2024 Injection into larynx at [place] [facility] REVISE MEDIAN N/CARPAL TUNNEL SURG Bilateral 06/12/2020 Bilateral carpal tunnel release RPR 1ST INGUN HRNA AGE 5 YRS/> REDUCIBLE Hernia repair, inguinal w/ mesh - right TONSILLECTOMY PRIMARY/SECONDARY Tonsillectomy CURRENT MEDICATIONS Current Outpatient Medications Medication Sig losartan (COZAAR) 100 mg tablet Take 1 tablet by mouth once daily. rosuvastatin (CRESTOR) 40 mg tablet Take 1 tablet by mouth daily at bedtime. omeprazole (PRILOSEC) 20 mg capsule Take 1 capsule by mouth once daily. metoprolol tartrate, short acting, (LOPRESSOR) 50 mg tablet Take 1 tablet by mouth two times a day. hydroCHLOROthiazide 25 mg tablet Take 1 tablet by mouth once daily. Psyllium Seed-Sucrose (METAMUCIL, SUGAR,) Take by mouth once daily. sildenafil (VIAGRA) 50 mg tablet Take 1 tablet by mouth as needed. albuterol HFA (PROVENTIL HFA, VENTOLIN HFA) 90 mcg/actuation inhaler Inhale 2 Puffs as instructed every 6 hours as needed for wheezing/shortness of breath. apixaban (ELIQUIS) 5 mg tab(s) Take 1 tablet by mouth twice daily. acetaminophen (TYLENOL ORAL) Take by mouth as needed. aspirin 81 mg chewable tablet Take 1 tablet by mouth once daily. therapeutic multivitamin (THERA VITAMIN) tablet Take 1 tablet by mouth daily with breakfast. CPAP Initiate Auto PAP @ 5-20 cm of water with humidification. Mask (per patient preference) optional chin strap (if indicated) , filters, tubing, humidifier and lifetime supplies. (Patient not taking: Reported on 06/11/2024) No current facility-administered medications for this visit. ALLERGIES: Iv Contrast [Iodine], Lipitor [Atorvastatin Calcium], Lovastatin, and Iebiljk-Fri-Zec Reductase Inhibitors PERSONAL HISTORY: SOCIAL HISTORY Social History Tobacco Use Smoking status: Former Current packs/day: 0.00 Types: Cigarettes Quit date: 06/18/1987 Years since quittin.0 Smokeless tobacco: Never Tobacco comments: quit smoking 1987 Vaping Use Vaping status: Never Used Substance Use Topics Alcohol use: Yes Alcohol/week: 7.0 standard drinks of alcohol Types: 7 Glasses of wine per week Drug use: Never FAMILY HISTORY FAMILY HISTORY Problem Relation Age of Onset Heart Mother from CVA at age 75, CABG Hypertension Father other (pancreatic cancer) Sister Coronary Artery Disease Sister Prostate Cancer Brother Coronary Artery Disease Brother stents Cancer Maternal Grandmother Parkinson s Disease Maternal Grandfather No Known Problems Paternal Grandmother Cancer Paternal Grandfather REVIEW OF SYSTEMS: General: The patient denies fatigue, notes weight loss, notes weight gain, denies feeling hot, and denies feelings of cold. Eyes: The patient denies glaucoma, notes eye injury/surgery, wears glasses or contacts. Ear/Nose/Throat: The patient denies allergies, denies hayfever, denies ear infections, and denies bloody noses. Cardiovascular: The patient denies chest pain, notes heart disease, notes high blood pressure,notes cardiac stent, denies prior heart attack, denies irregular heart beat, notes high cholesterol, denies poor circulation, denies heart failure, other cardiac issues, denies claudication, denies cold feet, denies peripheral arterial stent. Respiratory: The patient denies tuberculosis, denies pneumonia, denies frequent cough, denies pulmonary embolism, denies shortness of breath, and denies coughing up blood. Gastrointestinal: The patient denies difficulty swallowing, notes acid reflux, denies ulcers, denies vomiting, denies jaundice/hepatitis, denies gallbladder problems, denies black or tarry stools, notes hemorrhoids, denies bleeding from rectum, denies diverticulitis, denies constipation, denies diarrhea, denies loss of stool control, and denies hernias. Kidney/Bladder: The patient notes kidney stones, denies urine infections, and notes bloody urine. Skin: The patient notes a history of skin cancer, denies bleeding/changing moles, and denies a history of skin rash. Neurologic: The patient denies a history of epilepsy/convulsions, denies headaches, denies head/spinal injuries, and denies stroke/TIA. Psychiatric: The patient denies psychiatric medications, notes depression, and denies voices, denies substance abuse. Endocrine: The patient denies thyroid disorders, denies diabetes, and denies hormonal problems. Hematologic: The patient denies a history of bruising, denies bleeding, and denies anemia, denies blood clots. Infections: The patient denies a history of measles and mumps, denies rheumatic fever, and denies sexually transmitted diseases. Musculoskeletal: The patient notes back pain/injury, denies back problems, notes sciatica, denies knee/foot trouble, denies arthritis, or denies gout. PHYSICAL EXAMINATION: General: The patient is 74 year old male, well nourished, well hydrated in no acute distress. The patient is oriented to time, place, and person. VITALS: Blood pressure 128/78, pulse 64, temperature 36.6 C (97.9 F), temperature source Temporal, resp. rate 14, height 163.3 cm (5' 4.29), weight 103 kg (227 lb), SpO2 98%. Body mass index is 38.61 kg/m . Head: Normal cephalic, atraumatic Eyes: pupils are equally round, sclera are clear/anicteric, wearing glasses Neck is supple with no tracheal deviation Cardiac: normal heart sounds, regular Respiratory: Normal respiratory excursion and pattern. Abdominal exam: protuberant and benign Extremities: no clubbing, cyanosis or edema. Neuro: non focal Psych: normal mood The sensitive examination was discussed with the Patient or Patient's Authorized [employer] C[employer] Farmer. As applicable, any other physician, advance practice provider, medical student, or other health professional student that will be observing or involved in the sensitive examination for educational or training purposes was discussed with the Patient or Authorized [employer] C[employer] Farmer. The Patient or Authorized [employer] C[employer] Farmer has agreed to proceed with the sensitive examination. (Sensitive examination includes inspection and/or palpation of the breasts, pelvis, prostate and anorectal regions) IMPRESSION: esophageal dysphagia, acid reflux/heartburn PLAN: I have discussed the above with the patient. I have offered EGD, possible biopsies I have explained the procedure to the patient. I have counseled the patient as to the risks of the procedure, including but not limited to: infection, bleeding, injury to any intrabdominal organs such as liver/spleen, perforation of the GI tract, inability to complete the procedure, complications of anesthesia, etc. - the patient understands. The patient wishes to proceed. I have answered all questions to the patient s satisfaction and the patient has no further questions. Diagnoses: (K21.9) Gastroesophageal reflux disease without esophagitis (R13.19) Esophageal dysphagia Nichole Newton MD [place] 06-19-2024 History and physical note HISTORY AND PHYSICAL Curtis Rhianna Guerrier 1950 REFERRING PHYSICIAN: Jason Cook MD CHIEF COMPLAINT: Consult HPI: The patient is a 74 year old male referred for endoscopy. Curtis notes esophageal dysphagia. He states that this usually occurs with dry meats. He states that this has been going on for years. He last had an EGD in 2018 - no Gamboa's found. He also notes sharp upper abdominal pain, usually lasting a few minutes, usually occurring after eating a large meal. He was taking omeprazole intermittently; at present for the past several weeks, as directed by his physician, he is taking it daily which is helping somewhat. Denies hematemesis. Denies weight loss. PAST MEDICAL HISTORY PAST MEDICAL HISTORY Diagnosis Date Acute deep vein thrombosis (DVT) of right lower extremity (HCC) 09/27/2017 Arthritis BPH (benign prostatic hypertrophy) with urinary obstruction 10/10/2013 Calculus of kidney Coronary artery disease 2016 Stent 1 Diverticulitis Essential hypertension, benign GERD (gastroesophageal reflux disease) History of coronary artery stent placement 2016 Hypercalciuria 06/26/2012 Hypercholesterolemia Hyperlipidemia LDL goal < 100 04/17/2013 JONAH (obstructive sleep apnea) 06/01/2024 Other and unspecified hyperlipidemia Prostatic hypertrophy 2016 benign with outflow obstruction S/P CABG x 4 05/04/2017 [employer] workers comp claim Severe obesity with body mass index (BMI) of 35.0 to 35.9 and comorbidity (HCC) Snoring no JONAH Squamous cell skin cancer 05/13/2021 Stroke ([facility] patient denies diagnosis of stroke. Reports history of possible TIA PAST SURGICAL HISTORY PAST SURGICAL HISTORY Procedure Laterality Date BACK SURGERY HX CABG (4) VEIN GRAFTS & ARTERIAL GRAFT(S) 10/2016 COLON SURGERY HX COLONOSCOPY 05/28/2014 Diverticular disease- repeat in 2024 COLONOSCOPY FLX DX W/COLLJ SPEC WHEN PFRMD 02/12/2002 Colonoscopy-repeat in COLONOSCOPY FLX DX W/COLLJ SPEC WHEN PFRMD 04/26/2017 Colonoscopy ESOPHAGOGASTRODUODENOSCOPY TRANSORAL DIAGNOSTIC 04/26/2017 EGD EYE SURGERY HX FISSURECTOMY INCL SPHINCTEROTOMY WHEN PERFORMED HEART SURGERY HX HERNIA REPAIR HX LAPS COLECTOMY PRTL W/COLOPXTSTMY LW ANAST 04/14/2016 with mobilization of splenic flexure for diverticulitis PAST SURGICAL HISTORY OF 1982 lower back herniated disc PAST SURGICAL HISTORY OF 2005 low back surgery PAST SURGICAL HISTORY OF 04/04/2015 cardiac stent insertion PAST SURGICAL HISTORY OF 03/2016 colon resection PAST SURGICAL HISTORY OF 03/2024 Injection into larynx at [place] [facility] REVISE MEDIAN N/CARPAL TUNNEL SURG Bilateral 06/12/2020 Bilateral carpal tunnel release RPR 1ST INGUN HRNA AGE 4 YRS/> REDUCIBLE Hernia repair, inguinal w/ mesh - right TONSILLECTOMY PRIMARY/SECONDARY <AGE 11 Tonsillectomy CURRENT MEDICATIONS Current Outpatient Medications Medication Sig losartan (COZAAR) 100 mg tablet Take 1 tablet by mouth once daily. rosuvastatin (CRESTOR) 40 mg tablet Take 1 tablet by mouth daily at bedtime. omeprazole (PRILOSEC) 20 mg capsule Take 1 capsule by mouth once daily. metoprolol tartrate, short acting, (LOPRESSOR) 50 mg tablet Take 1 tablet by mouth two times a day. hydroCHLOROthiazide 25 mg tablet Take 1 tablet by mouth once daily. Psyllium Seed-Sucrose (METAMUCIL, SUGAR,) Take by mouth once daily. sildenafil (VIAGRA) 50 mg tablet Take 1 tablet by mouth as needed. albuterol HFA (PROVENTIL HFA, VENTOLIN HFA) 90 mcg/actuation inhaler Inhale 2 Puffs as instructed every 6 hours as needed for wheezing/shortness of breath. apixaban (ELIQUIS) 5 mg tab(s) Take 1 tablet by mouth twice daily. acetaminophen (TYLENOL ORAL) Take by mouth as needed. aspirin 81 mg chewable tablet Take 1 tablet by mouth once daily. therapeutic multivitamin (THERA VITAMIN) tablet Take 1 tablet by mouth daily with breakfast. CPAP Initiate Auto PAP @ 5-20 cm of water with humidification. Mask (per patient preference) optional chin strap (if indicated) , filters, tubing, humidifier and lifetime supplies. (Patient not taking: Reported on 06/11/2024) No current facility-administered medications for this visit. ALLERGIES: Iv Contrast [Iodine], Lipitor [Atorvastatin Calcium], Lovastatin, and Capvjxq-Unk-Vrk Reductase Inhibitors PERSONAL HISTORY: SOCIAL HISTORY Social History Tobacco Use Smoking status: Former Current packs/day: 0.00 Types: Cigarettes Quit date: 06/18/1987 Years since quittin.0 Smokeless tobacco: Never Tobacco comments: quit smoking 1987 Vaping Use Vaping status: Never Used Substance Use Topics Alcohol use: Yes Alcohol/week: 7.0 standard drinks of alcohol Types: 7 Glasses of wine per week Drug use: Never FAMILY HISTORY FAMILY HISTORY Problem Relation Age of Onset Heart Mother from CVA at age 74, CABG Hypertension Father other (pancreatic cancer) Sister Coronary Artery Disease Sister Prostate Cancer Brother Coronary Artery Disease Brother stents Cancer Maternal Grandmother Parkinson s Disease Maternal Grandfather No Known Problems Paternal Grandmother Cancer Paternal Grandfather REVIEW OF SYSTEMS: General: The patient denies fatigue, notes weight loss, notes weight gain, denies feeling hot, and denies feelings of cold. Eyes: The patient denies glaucoma, notes eye injury/surgery, wears glasses or contacts. Ear/Nose/Throat: The patient denies allergies, denies hayfever, denies ear infections, and denies bloody noses. Cardiovascular: The patient denies chest pain, notes heart disease, notes high blood pressure,notes cardiac stent, denies prior heart attack, denies irregular heart beat, notes high cholesterol, denies poor circulation, denies heart failure, other cardiac issues, denies claudication, denies cold feet, denies peripheral arterial stent. Respiratory: The patient denies tuberculosis, denies pneumonia, denies frequent cough, denies pulmonary embolism, denies shortness of breath, and denies coughing up blood. Gastrointestinal: The patient denies difficulty swallowing, notes acid reflux, denies ulcers, denies vomiting, denies jaundice/hepatitis, denies gallbladder problems, denies black or tarry stools, notes hemorrhoids, denies bleeding from rectum, denies diverticulitis, denies constipation, denies diarrhea, denies loss of stool control, and denies hernias. Kidney/Bladder: The patient notes kidney stones, denies urine infections, and notes bloody urine. Skin: The patient notes a history of skin cancer, denies bleeding/changing moles, and denies a history of skin rash. Neurologic: The patient denies a history of epilepsy/convulsions, denies headaches, denies head/spinal injuries, and denies stroke/TIA. Psychiatric: The patient denies psychiatric medications, notes depression, and denies voices, denies substance abuse. Endocrine: The patient denies thyroid disorders, denies diabetes, and denies hormonal problems. Hematologic: The patient denies a history of bruising, denies bleeding, and denies anemia, denies blood clots. Infections: The patient denies a history of measles and mumps, denies rheumatic fever, and denies sexually transmitted diseases. Musculoskeletal: The patient notes back pain/injury, denies back problems, notes sciatica, denies knee/foot trouble, denies arthritis, or denies gout. PHYSICAL EXAMINATION: General: The patient is 74 year old male, well nourished, well hydrated in no acute distress. The patient is oriented to time, place, and person. VITALS: Blood pressure 128/78, pulse 64, temperature 36.6 C (97.9 F), temperature source Temporal, resp. rate 14, height 163.3 cm (5' 4.29), weight 103 kg (227 lb), SpO2 98%. Body mass index is 38.61 kg/m . Head: Normal cephalic, atraumatic Eyes: pupils are equally round, sclera are clear/anicteric, wearing glasses Neck is supple with no tracheal deviation Cardiac: normal heart sounds, regular Respiratory: Normal respiratory excursion and pattern. Abdominal exam: protuberant and benign Extremities: no clubbing, cyanosis or edema. Neuro: non focal Psych: normal mood The sensitive examination was discussed with the Patient or Patient's Authorized [employer]. As applicable, any other physician, advance practice provider, medical student, or other health professional student that will be observing or involved in the sensitive examination for educational or training purposes was discussed with the Patient or Authorized [employer]. The Patient or Authorized [employer] has agreed to proceed with the sensitive examination. (Sensitive examination includes inspection and/or palpation of the breasts, pelvis, prostate and anorectal regions) IMPRESSION: esophageal dysphagia, acid reflux/heartburn PLAN: I have discussed the above with the patient. I have offered EGD, possible biopsies I have explained the procedure to the patient. I have counseled the patient as to the risks of the procedure, including but not limited to: infection, bleeding, injury to any intrabdominal organs such as liver/spleen, perforation of the GI tract, inability to complete the procedure, complications of anesthesia, etc. - the patient understands. The patient wishes to proceed. I have answered all questions to the patient s satisfaction and the patient has no further questions. Diagnoses: (K21.9) Gastroesophageal reflux disease without esophagitis (R13.19) Esophageal dysphagia Nichole Newton MD documented in this encounter [place] 06-13-2024 Telephone encounter Note Patient called and notified of results. Ana Fischer RN [place] 06-13-2024 Miscellaneous Notes Patient called and notified of results. Ana Fischer RN ----- Message from Josh Lynch MD sent at 06/12/2024 3:55 PM EDT ----- Normal Echo Inform patient syed documented in this encounter [place] 06-13-2024 Telephone encounter Note ----- Message from Josh Lynch MD sent at 06/12/2024 3:55 PM EDT ----- Normal Echo Inform patient syed [place] 06-11-2024 Instructions Nichole Newton MD - 06/11/2024 8:49 AM EDT Stop Eliquis at least two days prior to procedure Stop viagra at least a week prior to procedure Take all other morning medications with sips of water documented in this encounter [place] 06-11-2024 Note HNO ID: [id number] Author: REN TUTTLE LPN Service: ? Author Type: LICENSED NURSE Type: Progress Notes Filed: 06/13/2024 07:47 Note Text: REVIEW OF SYSTEMS: General: The patient denies fatigue, notes weight loss, notes weight gain, denies feeling hot, and denies feelings of cold. Eyes: The patient denies glaucoma, notes eye injury/surgery, wears glasses or contacts. Ear/Nose/Throat: The patient denies allergies, denies hayfever, denies ear infections, and denies bloody noses. Cardiovascular: The patient denies chest pain, notes heart disease, notes high blood pressure,notes cardiac stent, denies prior heart attack, denies irregular heart beat, notes high cholesterol, denies poor circulation, denies heart failure, other cardiac issues, denies claudication, denies cold feet, denies peripheral arterial stent. Respiratory: The patient denies tuberculosis, denies pneumonia, denies frequent cough, denies pulmonary embolism, denies shortness of breath, and denies coughing up blood. Gastrointestinal: The patient denies difficulty swallowing, notes acid reflux, denies ulcers, denies vomiting, denies jaundice/hepatitis, denies gallbladder problems, denies black or tarry stools, notes hemorrhoids, denies bleeding from rectum, denies diverticulitis, denies constipation, denies diarrhea, denies loss of stool control, and denies hernias. Kidney/Bladder: The patient notes kidney stones, denies urine infections, and notes bloody urine. Skin: The patient notes a history of skin cancer, denies bleeding/changing moles, and denies a history of skin rash. Neurologic: The patient denies a history of epilepsy/convulsions, denies headaches, denies head/spinal injuries, and denies stroke/TIA. Psychiatric: The patient denies psychiatric medications, notes depression, and denies voices, denies substance abuse. Endocrine: The patient denies thyroid disorders, denies diabetes, and denies hormonal problems. Hematologic: The patient denies a history of bruising, denies bleeding, and denies anemia, denies blood clots. Infections: The patient denies a history of measles and mumps, denies rheumatic fever, and denies sexually transmitted diseases. Musculoskeletal: The patient notes back pain/injury, denies back problems, notes sciatica, denies knee/foot trouble, denies arthritis, or denies gout. When was patient's last Mammogram screening? N/A Last Colonoscopy: 04/26/2017 Ren Tuttle LPN [facility] 06-11-2024 History of Present illness Narrative REVIEW OF SYSTEMS: General: The patient denies fatigue, notes weight loss, notes weight gain, denies feeling hot, and denies feelings of cold. Eyes: The patient denies glaucoma, notes eye injury/surgery, wears glasses or contacts. Ear/Nose/Throat: The patient denies allergies, denies hayfever, denies ear infections, and denies bloody noses. Cardiovascular: The patient denies chest pain, notes heart disease, notes high blood pressure,notes cardiac stent, denies prior heart attack, denies irregular heart beat, notes high cholesterol, denies poor circulation, denies heart failure, other cardiac issues, denies claudication, denies cold feet, denies peripheral arterial stent. Respiratory: The patient denies tuberculosis, denies pneumonia, denies frequent cough, denies pulmonary embolism, denies shortness of breath, and denies coughing up blood. Gastrointestinal: The patient denies difficulty swallowing, notes acid reflux, denies ulcers, denies vomiting, denies jaundice/hepatitis, denies gallbladder problems, denies black or tarry stools, notes hemorrhoids, denies bleeding from rectum, denies diverticulitis, denies constipation, denies diarrhea, denies loss of stool control, and denies hernias. Kidney/Bladder: The patient notes kidney stones, denies urine infections, and notes bloody urine. Skin: The patient notes a history of skin cancer, denies bleeding/changing moles, and denies a history of skin rash. Neurologic: The patient denies a history of epilepsy/convulsions, denies headaches, denies head/spinal injuries, and denies stroke/TIA. Psychiatric: The patient denies psychiatric medications, notes depression, and denies voices, denies substance abuse. Endocrine: The patient denies thyroid disorders, denies diabetes, and denies hormonal problems. Hematologic: The patient denies a history of bruising, denies bleeding, and denies anemia, denies blood clots. Infections: The patient denies a history of measles and mumps, denies rheumatic fever, and denies sexually transmitted diseases. Musculoskeletal: The patient notes back pain/injury, denies back problems, notes sciatica, denies knee/foot trouble, denies arthritis, or denies gout. When was patient's last Mammogram screening? N/A Last Colonoscopy: 04/26/2017 Ren Tuttle LPN HISTORY AND PHYSICAL Curtis Guerrier 1950 REFERRING PHYSICIAN: Jason Cook MD CHIEF COMPLAINT: Consult HPI: The patient is a 74 year old male referred for endoscopy. Curtis notes esophageal dysphagia. He states that this usually occurs with dry meats. He states that this has been going on for years. He last had an EGD in 2018 - no Gamboa's found. He also notes sharp upper abdominal pain, usually lasting a few minutes, usually occurring after eating a large meal. He was taking omeprazole intermittently; at present for the past several weeks, as directed by his physician, he is taking it daily which is helping somewhat. Denies hematemesis. Denies weight loss. PAST MEDICAL HISTORY Diagnosis Date Acute deep vein thrombosis (DVT) of right lower extremity (HCC) 09/27/2017 Arthritis BPH (benign prostatic hypertrophy) with urinary obstruction 10/10/2013 Calculus of kidney Coronary artery disease 2016 Stent 1 Diverticulitis Essential hypertension, benign GERD (gastroesophageal reflux disease) History of coronary artery stent placement 2016 Hypercalciuria 06/26/2012 Hypercholesterolemia Hyperlipidemia LDL goal < 100 04/17/2013 JONAH (obstructive sleep apnea) 06/01/2024 Other and unspecified hyperlipidemia Prostatic hypertrophy 2016 benign with outflow obstruction 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 Reports history of possible TIA PAST SURGICAL HISTORY Procedure Laterality Date BACK SURGERY HX CABG (4) VEIN GRAFTS & ARTERIAL GRAFT(S) 10/2016 COLON SURGERY HX COLONOSCOPY 05/28/2014 Diverticular disease- repeat in 2024 COLONOSCOPY FLX DX W/COLLJ SPEC WHEN PFRMD 02/12/2002 Colonoscopy-repeat in COLONOSCOPY FLX DX W/COLLJ SPEC WHEN PFRMD 04/26/2017 Colonoscopy ESOPHAGOGASTRODUODENOSCOPY TRANSORAL DIAGNOSTIC 04/26/2017 EGD EYE SURGERY HX FISSURECTOMY INCL SPHINCTEROTOMY WHEN PERFORMED HEART SURGERY HX HERNIA REPAIR HX LAPS COLECTOMY PRTL W/COLOPXTSTMY LW ANAST 04/14/2016 with mobilization of splenic flexure for diverticulitis PAST SURGICAL HISTORY OF 1982 lower back herniated disc PAST SURGICAL HISTORY OF 2005 low back surgery PAST SURGICAL HISTORY OF 04/04/2015 cardiac stent insertion PAST SURGICAL HISTORY OF 03/2016 colon resection PAST SURGICAL HISTORY OF 03/2024 Injection into larynx at [place] [facility] REVISE MEDIAN N/CARPAL TUNNEL SURG Bilateral 06/12/2020 Bilateral carpal tunnel release RPR 1ST INGUN HRNA AGE 4 YRS/> REDUCIBLE Hernia repair, inguinal w/ mesh - right TONSILLECTOMY PRIMARY/SECONDARY <AGE 11 Tonsillectomy Current Outpatient Medications Medication Sig losartan (COZAAR) 100 mg tablet Take 1 tablet by mouth once daily. rosuvastatin (CRESTOR) 40 mg tablet Take 1 tablet by mouth daily at bedtime. omeprazole (PRILOSEC) 20 mg capsule Take 1 capsule by mouth once daily. metoprolol tartrate, short acting, (LOPRESSOR) 50 mg tablet Take 1 tablet by mouth two times a day. hydroCHLOROthiazide 25 mg tablet Take 1 tablet by mouth once daily. Psyllium Seed-Sucrose (METAMUCIL, SUGAR,) Take by mouth once daily. sildenafil (VIAGRA) 50 mg tablet Take 1 tablet by mouth as needed. albuterol HFA (PROVENTIL HFA, VENTOLIN HFA) 90 mcg/actuation inhaler Inhale 2 Puffs as instructed every 6 hours as needed for wheezing/shortness of breath. apixaban (ELIQUIS) 5 mg tab(s) Take 1 tablet by mouth twice daily. acetaminophen (TYLENOL ORAL) Take by mouth as needed. aspirin 81 mg chewable tablet Take 1 tablet by mouth once daily. therapeutic multivitamin (THERA VITAMIN) tablet Take 1 tablet by mouth daily with breakfast. CPAP Initiate Auto PAP @ 5-20 cm of water with humidification. Mask (per patient preference) optional chin strap (if indicated) , filters, tubing, humidifier and lifetime supplies. (Patient not taking: Reported on 06/11/2024) No current facility-administered medications for this visit. ALLERGIES: Iv Contrast [Iodine], Lipitor [Atorvastatin Calcium], Lovastatin, and Fmfjecn-Pip-Oxk Reductase Inhibitors PERSONAL HISTORY: Social History Tobacco Use Smoking status: Former Current packs/day: 0.00 Types: Cigarettes Quit date: 06/18/1987 Years since quittin.0 Smokeless tobacco: Never Tobacco comments: quit smoking 1987 Vaping Use Vaping status: Never Used Substance Use Topics Alcohol use: Yes Alcohol/week: 7.0 standard drinks of alcohol Types: 7 Glasses of wine per week Drug use: Never FAMILY HISTORY Problem Relation Age of Onset Heart Mother from CVA at age 75, CABG Hypertension Father other (pancreatic cancer) Sister Coronary Artery Disease Sister Prostate Cancer Brother Coronary Artery Disease Brother stents Cancer Maternal Grandmother Parkinson s Disease Maternal Grandfather No Known Problems Paternal Grandmother Cancer Paternal Grandfather REVIEW OF SYSTEMS: General: The patient denies fatigue, notes weight loss, notes weight gain, denies feeling hot, and denies feelings of cold. Eyes: The patient denies glaucoma, notes eye injury/surgery, wears glasses or contacts. Ear/Nose/Throat: The patient denies allergies, denies hayfever, denies ear infections, and denies bloody noses. Cardiovascular: The patient denies chest pain, notes heart disease, notes high blood pressure,notes cardiac stent, denies prior heart attack, denies irregular heart beat, notes high cholesterol, denies poor circulation, denies heart failure, other cardiac issues, denies claudication, denies cold feet, denies peripheral arterial stent. Respiratory: The patient denies tuberculosis, denies pneumonia, denies frequent cough, denies pulmonary embolism, denies shortness of breath, and denies coughing up blood. Gastrointestinal: The patient denies difficulty swallowing, notes acid reflux, denies ulcers, denies vomiting, denies jaundice/hepatitis, denies gallbladder problems, denies black or tarry stools, notes hemorrhoids, denies bleeding from rectum, denies diverticulitis, denies constipation, denies diarrhea, denies loss of stool control, and denies hernias. Kidney/Bladder: The patient notes kidney stones, denies urine infections, and notes bloody urine. Skin: The patient notes a history of skin cancer, denies bleeding/changing moles, and denies a history of skin rash. Neurologic: The patient denies a history of epilepsy/convulsions, denies headaches, denies head/spinal injuries, and denies stroke/TIA. Psychiatric: The patient denies psychiatric medications, notes depression, and denies voices, denies substance abuse. Endocrine: The patient denies thyroid disorders, denies diabetes, and denies hormonal problems. Hematologic: The patient denies a history of bruising, denies bleeding, and denies anemia, denies blood clots. Infections: The patient denies a history of measles and mumps, denies rheumatic fever, and denies sexually transmitted diseases. Musculoskeletal: The patient notes back pain/injury, denies back problems, notes sciatica, denies knee/foot trouble, denies arthritis, or denies gout. PHYSICAL EXAMINATION: General: The patient is 74 year old male, well nourished, well hydrated in no acute distress. The patient is oriented to time, place, and person. VITALS: Blood pressure 128/78, pulse 64, temperature 36.6 C (97.9 F), temperature source Temporal, resp. rate 14, height 163.3 cm (5' 4.29), weight 103 kg (227 lb), SpO2 98%. Body mass index is 38.61 kg/m . Head: Normal cephalic, atraumatic Eyes: pupils are equally round, sclera are clear/anicteric, wearing glasses Neck is supple with no tracheal deviation Cardiac: normal heart sounds, regular Respiratory: Normal respiratory excursion and pattern. Abdominal exam: protuberant and benign Extremities: no clubbing, cyanosis or edema. Neuro: non focal Psych: normal mood The sensitive examination was discussed with the Patient or Patient's Authorized [employer]. As applicable, any other physician, advance practice provider, medical student, or other health professional student that will be observing or involved in the sensitive examination for educational or training purposes was discussed with the Patient or Authorized [employer]. The Patient or Authorized [employer] Farmer has agreed to proceed with the sensitive examination. (Sensitive examination includes inspection and/or palpation of the breasts, pelvis, prostate and anorectal regions) Assessment IMPRESSION: esophageal dysphagia, acid reflux/heartburn PLAN: I have discussed the above with the patient. I have offered EGD, possible biopsies I have explained the procedure to the patient. I have counseled the patient as to the risks of the procedure, including but not limited to: infection, bleeding, injury to any intrabdominal organs such as liver/spleen, perforation of the GI tract, inability to complete the procedure, complications of anesthesia, etc. - the patient understands. The patient wishes to proceed. I have answered all questions to the patient s satisfaction and the patient has no further questions. I have counseled patient as to medications prior to procedure and written this out for him. (Hold Eliquis for at least 2 days, hold viagra for at least a week) NPO about 6 hours prior to procedure (or simply NPO after MDNT) - directions typed out and printed for patient The patient will be scheduled for the procedure at [facility]. Diagnoses: (K21.9) Gastroesophageal reflux disease without esophagitis (R13.19) Esophageal dysphagia I have confirmed and edited as necessary, the PFSH and ROS obtained by others. Consultation requested by Dr. Jason Cook for an opinion regarding patient's acid reflux and dysphagia. My final recommendations will be communicated back to the requesting physician by way of shared Medical record or letter to requesting physician via US mail. I spent a total of 31 minutes on the date of the service which included preparing to see the patient with review of any pertinent laboratory studies/radiological imaging/medical records, [id number] patient care, obtaining oral medical history from the patient in this encounter, performing a medically appropriate examination, counseling and educating the patient/family/caregiver, and ordering and/or scheduling of medications/tests/procedures, and completing appropriate medical documentation. Nichole Newton MD documented in this encounter [place] 06-11-2024 Note HNO ID: [id number] Author: NICHOLE NEWTON MD Service: ? Author Type: Physician Type: Progress Notes Filed: 06/13/2024 07:47 Note Text: HISTORY AND PHYSICAL Curtis Guerrier 1950 REFERRING PHYSICIAN: Jason Cook MD CHIEF COMPLAINT: Consult HPI: The patient is a 74 year old male referred for endoscopy. Curtis notes esophageal dysphagia. He states that this usually occurs with dry meats. He states that this has been going on for years. He last had an EGD in 2018 - no Gamboa's found. He also notes sharp upper abdominal pain, usually lasting a few minutes, usually occurring after eating a large meal. He was taking omeprazole intermittently; at present for the past several weeks, as directed by his physician, he is taking it daily which is helping somewhat. Denies hematemesis. Denies weight loss. 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 Reports history of possible TIA PAST SURGICAL HISTORY Procedure Laterality Date BACK SURGERY HX CABG (4) VEIN GRAFTS AND ARTERIAL GRAFT(S) 10/2016 COLON SURGERY HX COLONOSCOPY 05/28/2014 Diverticular disease- repeat in 2024 COLONOSCOPY FLX DX W/COLLJ SPEC WHEN PFRMD 02/12/2002 Colonoscopy-repeat in COLONOSCOPY FLX DX W/COLLJ SPEC WHEN PFRMD 04/26/2017 Colonoscopy ESOPHAGOGASTRODUODENOSCOPY TRANSORAL DIAGNOSTIC 04/26/2017 EGD EYE SURGERY HX FISSURECTOMY INCL SPHINCTEROTOMY WHEN PERFORMED HEART SURGERY HX HERNIA REPAIR HX LAPS COLECTOMY PRTL W/COLOPXTSTMY LW ANAST 04/14/2016 with mobilization of splenic flexure for diverticulitis PAST SURGICAL HISTORY OF 1982 lower back herniated disc PAST SURGICAL HISTORY OF 2005 low back surgery PAST SURGICAL HISTORY OF 04/04/2015 cardiac stent insertion PAST SURGICAL HISTORY OF 03/2016 colon resection PAST SURGICAL HISTORY OF 03/2024 Injection into larynx at [place] [facility] REVISE MEDIAN N/CARPAL TUNNEL SURG Bilateral 06/12/2020 Bilateral carpal tunnel release RPR 1ST INGUN HRNA AGE 4 YRS/> REDUCIBLE Hernia repair, inguinal w/ mesh - right TONSILLECTOMY PRIMARY/SECONDARY Tonsillectomy Current Outpatient Medications Medication Sig losartan (COZAAR) 100 mg tablet Take 1 tablet by mouth once daily. rosuvastatin (CRESTOR) 40 mg tablet Take 1 tablet by mouth daily at bedtime. omeprazole (PRILOSEC) 20 mg capsule Take 1 capsule by mouth once daily. metoprolol tartrate, short acting, (LOPRESSOR) 50 mg tablet Take 1 tablet by mouth two times a day. hydroCHLOROthiazide 25 mg tablet Take 1 tablet by mouth once daily. Psyllium Seed-Sucrose (METAMUCIL, SUGAR,) Take by mouth once daily. sildenafil (VIAGRA) 50 mg tablet Take 1 tablet by mouth as needed. albuterol HFA (PROVENTIL HFA, VENTOLIN HFA) 90 mcg/actuation inhaler Inhale 2 Puffs as instructed every 6 hours as needed for wheezing/shortness of breath. apixaban (ELIQUIS) 5 mg tab(s) Take 1 tablet by mouth twice daily. acetaminophen (TYLENOL ORAL) Take by mouth as needed. aspirin 81 mg chewable tablet Take 1 tablet by mouth once daily. therapeutic multivitamin (THERA VITAMIN) tablet Take 1 tablet by mouth daily with breakfast. CPAP Initiate Auto PAP @ 5-20 cm of water with humidification. Mask (per patient preference) optional chin strap (if indicated) , filters, tubing, humidifier and lifetime supplies. (Patient not taking: Reported on 06/11/2024) No current facility-administered medications for this visit. ALLERGIES: Iv Contrast [Iodine], Lipitor [Atorvastatin Calcium], Lovastatin, and Xwedfwo-Szs-Faj Reductase Inhibitors PERSONAL HISTORY: Social History Tobacco Use Smoking status: Former Current packs/day: 0.00 Types: Cigarettes Quit date: 06/18/1987 Years since quittin.0 Smokeless tobacco: Never Tobacco comments: quit smoking 1987 Vaping Use Vaping status: Never Used Substance Use Topics Alcohol use: Yes Alcohol/week: 7.0 standard drinks of alcohol Types: 7 Glasses of wine per week Drug use: Never FAMILY HISTORY Problem Relation Age of Onset Heart Mother from CVA at age 75, CABG Hypertension Father other (pancreatic cancer) Sist (more content not included)... [facility] 06-04-2024 Telephone encounter Note Prescription Refill Information The patient has been identified by name and date of : Yes Caregiver verified no other encounters exist for this prescription request: Yes Caregiver confirmed with patient/requestor that no other refills are due, in the near future, with this provider at this time: Yes The last office visit in the department: 05/30/24 Does the patient have a future office visit with this provider/department: Yes: 12/14/24 Requested Prescriptions Pending Prescriptions Disp Refills losartan (COZAAR) 100 mg tablet 90 tablet 3 Sig: Take 1 tablet by mouth once daily. Dorothy Hidalgo MA June 04, 2024 4:47 PM [place] 06-04-2024 Miscellaneous Notes Prescription Refill Information The patient has been identified by name and date of : Yes Caregiver verified no other encounters exist for this prescription request: Yes Caregiver confirmed with patient/requestor that no other refills are due, in the near future, with this provider at this time: Yes The last office visit in the department: 05/30/24 Does the patient have a future office visit with this provider/department: Yes: 12/14/24 Requested Prescriptions Pending Prescriptions Disp Refills losartan (COZAAR) 100 mg tablet 90 tablet 3 Sig: Take 1 tablet by mouth once daily. Dorothy Hidalgo MA June 04, 2024 4:47 PM documented in this encounter [place] 06-04-2024 Telephone encounter Note Patient wants to see sleep med first. Transferred over to get scheduled. [place] 06-04-2024 Miscellaneous Notes Patient wants to see sleep med first. Transferred over to get scheduled. ----- Message from Jason Cook MD sent at 06/01/2024 9:47 AM EST ----- Confirms at least mild sleep apnea. Refer to sleep med and set up autopap documented in this encounter [place] 06-04-2024 Telephone encounter Note ----- Message from Jason Cook MD sent at 06/01/2024 9:47 AM EST ----- Confirms at least mild sleep apnea. Refer to sleep med and set up autopap [facility] 05-30-2024 History of Present illness Narrative Radiology Service Progress Note PATIENT NAME: Curtis Guerrier DATE OF SERVICE: May 30, 2024 TIME: 9:22 AM PATIENT IDENTITY VERIFICATION COMPLETED USING TWO (2) IDENTIFIERS: Name and Date of confirmed by patient verbally. FALL SCREENING: Has the patient had 2 falls in the last year or 1 fall with injury or currently using an Ambulatory Assistive Device (Walker, Cane, Wheelchair, Crutches, etc.)? No PATIENT GENDER DATA: Assigned male at PATIENT RELEVANT IMPLANT DATA REVIEWED: Not Applicable PATIENT PRESENTS WITH AN IMPLANTABLE OR ATTACHED PAYROLL ACCOUNTING MANAGER: No RADIOLOGY DEPARTMENT: General X-ray: Exam(s) Completed: Upper Extremity X-Ray(s): Shoulder, AP / TRUE AP / AXILLARY right PERIPHERAL IV DATA: Not applicable SIGNED BY: KADEN BraunR) May 30, 2024 9:22 AM documented in this encounter [place] 05-30-2024 Note HNO ID: [id number] Author: FILIPE IVY RT(R) Service: Radiology Author Type: Technologist Type: Progress Notes Filed: 05/30/2024 09:34 Note Text: Radiology Service Progress Note PATIENT NAME: Curtis Guerrier DATE OF SERVICE: May 30, 2024 TIME: 9:22 AM PATIENT IDENTITY VERIFICATION COMPLETED USING TWO (2) IDENTIFIERS: Name and Date of confirmed by patient verbally. FALL SCREENING: Has the patient had 2 falls in the last year or 1 fall with injury or currently using an Ambulatory Assistive Device (Walker, Cane, Wheelchair, Crutches, etc.)? No PATIENT GENDER DATA: Assigned male at PATIENT RELEVANT IMPLANT DATA REVIEWED: Not Applicable PATIENT PRESENTS WITH AN IMPLANTABLE OR ATTACHED PAYROLL ACCOUNTING MANAGER: No RADIOLOGY DEPARTMENT: General X-ray: Exam(s) Completed: Upper Extremity X-Ray(s): Shoulder, AP / TRUE AP / AXILLARY right PERIPHERAL IV DATA: Not applicable SIGNED BY: RT Aparna(Rhianna) May 30, 2024 9:22 AM [facility] 05-30-2024 History of Present illness Narrative Patient presents with: 6 Month Exam HPI: Patient presents today for office visit for routine 6 month follow up. Having some pain in his right upper inner arm for 6+ months. No injury. Some tingling in fingers but is minimal. Hx of carpal tunnel B/L. Had similar pain back in 2020. Previous carpal tunnel surgery 06/12/[address] Alvarado. He told him it might come back. States this pain in his arm went away post surgery. Pain is deep in the arm. Moving the shoulder or the neck does not really affect it. Worse at night. GERD: For years has been taking Omeprazole 20 mg 3 days a week and symptoms have been controlled for the most part. About 6 weeks ago started with some upper abdominal pain. Refers to the pain feeling like indigestion and heartburn. Was having some increased gas. Points to upper abdomen and lower part of sternum. Refers to pain just coming on and going away after about 20 minutes. No triggers. He states pain level was about a 7-8/10 when it happens. Started taking the omeprazole daily. Is getting relief from this pain since started taking med daily. Is he estimates 80 % better. Tums seemed to help as well. No nausea or vomiting. No diarrhea. No bloody or black stool. Had non bleeding esophagitis with egd in 2018. He does note that sometimes certain foods like chicken or turkey can stick. No nsaids. Some etoh. HTN: Has been monitoring BP Home numbers have been actually very well. Denies headaches and dizziness. Denies chest pain and shortness of breath. No palpitations or syncope No edema Follows with Cardiology. Sleep study just completed. Waiting for results. HLD: No myalgias. Glucose was 116 but not fasting. Testosterone was low normal. Given heart issues, we may not want to treat the testosterone. Latest Ref Rng 04/27/2024 WBC 3.70 - 11.00 k/uL 5.81 RBC 4.20 - 6.00 m/uL 4.74 Hemoglobin 13.0 - 17.0 g/dL 15.0 Hematocrit 39.0 - 51.0 % 44.9 MCV 80.0 - 100.0 fL 94.7 MCH 26.0 - 34.0 pg 31.6 MCHC 30.5 - 36.0 g/dL 33.4 RDW-CV 11.5 - 15.0 % 12.7 Platelet Count 150 - 400 k/uL 215 MPV 9.0 - 12.7 fL 10.2 Neut% % 52.9 Abs Neut (ANC) 1.45 - 7.50 k/uL 3.08 Lymph% % 30.3 Abs Lymph 1.00 - 4.00 k/uL 1.76 [place]% % 11.7 Abs [place] <0.87 k/uL 0.68 Eosin% % 4.0 Abs Eosin <0.46 k/uL 0.23 Baso% % 0.9 Abs Baso <0.11 k/uL 0.05 Immature Gran % % 0.2 IMMATURE GRANS (ABS) <0.10 k/uL <0.03 NRBC /100 WBC 0.0 Absolute nRBC <0.01 k/uL <0.01 DTYPE Auto Glucose 74 - 99 mg/dL 116 (H) BUN 9 - 24 mg/dL 20 Creatinine 0.73 - 1.22 mg/dL 0.86 Sodium 136 - 144 mmol/L 137 Potassium 3.7 - 5.1 mmol/L 4.4 Chloride 98 - 107 mmol/L 100 CO2 22 - 30 mmol/L 28 Anion Gap 8 - 15 mmol/L 9 Calcium 8.5 - 10.2 mg/dL 9.7 eGFR >=60 mL/min/1.73m 90 Hemoglobin A1C 4.3 - 5.6 % 5.5 Estimated Average Glucose mg/dL 111 TSH 0.270 - 4.200 mIU/L 2.970 Magnesium 1.7 - 2.3 mg/dL 2.0 Vitamin B12 232 - 1,245 pg/mL 627 Vitamin D 25 Hydroxy 31.0 - 80.0 ng/mL 50.3 Testosterone 193 - 824 ng/dL 213 Legend: (H) High MEDICATIONS: Current Outpatient Medications Medication Sig rosuvastatin (CRESTOR) 40 mg tablet Take 1 tablet by mouth daily at bedtime. omeprazole (PRILOSEC) 20 mg capsule Take 1 capsule by mouth once daily. metoprolol tartrate, short acting, (LOPRESSOR) 50 mg tablet Take 1 tablet by mouth two times a day. hydroCHLOROthiazide 25 mg tablet Take 1 tablet by mouth once daily. Psyllium Seed-Sucrose (METAMUCIL, SUGAR,) Take by mouth once daily. losartan (COZAAR) 100 mg tablet Take 1 tablet by mouth once daily. sildenafil (VIAGRA) 50 mg tablet Take 1 tablet by mouth as needed. albuterol HFA (PROVENTIL HFA, VENTOLIN HFA) 90 mcg/actuation inhaler Inhale 2 Puffs as instructed every 6 hours as needed for wheezing/shortness of breath. apixaban (ELIQUIS) 5 mg tab(s) Take 1 tablet by mouth twice daily. acetaminophen (TYLENOL ORAL) Take by mouth as needed. aspirin 81 mg chewable tablet Take 1 tablet by mouth once daily. therapeutic multivitamin (THERA VITAMIN) tablet Take 1 tablet by mouth daily with breakfast. No current facility-administered medications for this visit. ALLERGIES: ALLERGIES Allergen Reactions Iv Contrast [Iodine] Angioedema IV contrast 06/01/2019 Lipitor [Atorvastat* myalgia Lovastatin myalgia [place]-Yeg-Sks Red* Other: See Comments, Myalgia sore joints and muscles PAST MEDICAL HISTORY Diagnosis Date Acute deep vein thrombosis (DVT) of right lower extremity (HCC) 09/27/2017 Arthritis BPH (benign prostatic hypertrophy) with urinary obstruction 10/10/2013 Calculus of kidney Coronary artery disease 2016 Stent 1 Diverticulitis Essential hypertension, benign GERD (gastroesophageal reflux disease) History of coronary artery stent placement 2016 Hypercalciuria 06/26/2012 Hypercholesterolemia Hyperlipidemia LDL goal < 100 04/17/2013 Other and unspecified hyperlipidemia Prostatic hypertrophy 2016 benign with outflow obstruction S/P CABG x 4 05/04/2017 [employer] workers comp claim Severe obesity with body mass index (BMI) of 35.0 to 35.9 and comorbidity (HCC) Snoring no JONAH Squamous cell skin cancer 05/13/2021 Stroke ([facility] patient denies diagnosis of stroke. Reports history of possible TIA PAST SURGICAL HISTORY Procedure Laterality Date BACK SURGERY HX CABG (4) VEIN GRAFTS & ARTERIAL GRAFT(S) 10/2016 COLON SURGERY HX COLONOSCOPY 05/28/2014 Diverticular disease- repeat in 2024 COLONOSCOPY FLX DX W/COLLJ SPEC WHEN PFRMD 02/12/2002 Colonoscopy-repeat in -2011 COLONOSCOPY FLX DX W/COLLJ SPEC WHEN PFRMD 04/26/2017 Colonoscopy ESOPHAGOGASTRODUODENOSCOPY TRANSORAL DIAGNOSTIC 04/26/2017 EGD EYE SURGERY HX FISSURECTOMY INCL SPHINCTEROTOMY WHEN PERFORMED HEART SURGERY HX HERNIA REPAIR HX LAPS COLECTOMY PRTL W/COLOPXTSTMY LW ANAST 04/14/2016 with mobilization of splenic flexure for diverticulitis PAST SURGICAL HISTORY OF 1982 lower back herniated disc PAST SURGICAL HISTORY OF 2005 low back surgery PAST SURGICAL HISTORY OF 04/04/2015 cardiac stent insertion PAST SURGICAL HISTORY OF 03/2016 colon resection REVISE MEDIAN N/CARPAL TUNNEL SURG Bilateral 06/12/2020 Bilateral carpal tunnel release RPR 1ST INGUN HRNA AGE 4 YRS/> REDUCIBLE Hernia repair, inguinal w/ mesh - right TONSILLECTOMY PRIMARY/SECONDARY <AGE 11 Tonsillectomy FAMILY HISTORY Problem Relation Age of Onset Heart Mother from CVA at age 75, CABG Hypertension Father Prostate Cancer Brother Coronary Artery Disease Brother stents other (pancreatic cancer) Sister Coronary Artery Disease Sister Coronary Artery Disease Sister Cancer Maternal Grandmother Parkinson s Disease Maternal Grandfather Cancer Paternal Grandfather Social History Tobacco Use Smoking status: Former Current packs/day: 0.00 Types: Cigarettes Quit date: 06/18/1987 Years since quittin.9 Smokeless tobacco: Never Tobacco comments: quit smoking 1987 Vaping Use Vaping status: Never Used Substance Use Topics Alcohol use: Yes Comment: 1glass of wine a day Drug use: No Reviewed current medications, allergies, past medical history, surgical history, family history and social history today. REVIEW OF SYSTEMS All other reviewed and negative other than HPI. HEALTH MAINTENANCE: Reviewed health maintenance issues today and recommended the following in detail. BP Controlled (<130/80) due on 11/11/2022 VITALS: BP 136/70 Pulse 65 Ht 167.6 cm (5' 6) Wt 103.9 kg (229 lb) SpO2 98% BMI 36.96 kg/m Last 4 Encounter Wt Readings: Date: Wt: 05/30/2024 103.9 kg (229 lb) 04/17/2024 104.8 kg (231 lb) 04/16/2024 105.1 kg (231 lb 9.6 oz) 11/30/2023 98.4 kg (217 lb) PHYSICAL EXAMINATION: General appearance: Well appearing, alert, in no acute distress, well-hydrated, well nourished. Skin: Skin color, texture, turgor normal, no suspicious rashes or lesions Head: Normocephalic, no masses, lesions, tenderness or abnormalities Neck: Negative findings: no asymmetry, masses, or scars, no adenopathy, nontender Lungs: Lungs clear to auscultation. No wheezing, rhonchi, rales Heart: RRR without murmur, gallop, or rubs. No ectopy Abdomen: Normal abdominal exam, Abdomen soft, non-tender. Bowel sounds normal. No masses, organomegaly Extremities: No deformities, edema, skin discoloration, clubbing or cyanosis. Good capillary refill. Musculoskeletal: No joint swelling, deformity, or tenderness, tender over interior muscles of the upper arm. Normal range of motion. No signs of impingement. Neg tinels and phalens. No deformity. Peripheral pulses: Normal Neuro: Gait normal. Reflexes normal and symmetric. Sensation grossly intact. ASSESSMENT/PLAN: 1. Primary hypertension - ICD9: 401.9, ICD10: I10 (primary diagnosis) - Controlled - Continue current medications - continue to follow bp at home. 2. Hyperlipidemia with target LDL less than 100 - ICD9: 272.4, ICD10: E78.5 - Controlled - Counseled on healthy diet and regular exercise 3. Paroxysmal atrial fibrillation (HCC) - ICD9: 427.31, ICD10: I48.0 - per cardiology. Continue on meds. 4. Coronary artery disease involving [place] coronary artery of [place] heart without angina pectoris - ICD9: 414.01, ICD10: I25.10 - stable. 5. Gastroesophageal reflux disease without esophagitis - ICD9: 530.81, ICD10: K21.9 - CONSULT TO GENERAL SURGERY 6. History of squamous cell carcinoma - ICD9: V10.89, ICD10: Z85.89 - stable. 7. Obesity, Class II, BMI 35-39.9 - ICD9: 278.00, ICD10: E66.812 - watch diet. 8. Dysphagia, unspecified type - ICD9: 787.20, ICD10: R13.10 - avoid etoh. Take prilosec daily. May require egd. - CONSULT TO GENERAL SURGERY 9. Hyperglycemia - ICD9: 790.29, ICD10: R73.9 - HEMOGLOBIN A1C 10. Pain of right upper arm - ICD9: 729.5, ICD10: M79.621 - Discussed risks and benefits of new medication with the patient. Advised them to call if any side effects or questions. Red flags for re-assessment reviewed with patient in detail. Call if symptoms worsen at all or if not better in one to two weeks Reviewed diagnosis and treatment options in detail. Questions were answered. Patient expressed understanding of treatment plan. Consider ortho if persists. - XR SHOULDER GENERAL 3V OR MORE AP/TRUE AP/OTHER RIGHT - PREDNISONE 20 MG TABLET Jason Cook MD RTO in six months or prn documented in this encounter [facility] 05-30-2024 Note HNO ID: [id number] Author: JASON COOK MD Service: ? Author Type: Physician Type: Progress Notes Filed: 05/30/2024 09:57 Note Text: Patient presents with: 6 Month Exam HPI: Patient presents today for office visit for routine 6 month follow up. Having some pain in his right upper inner arm for 6+ months. No injury. Some tingling in fingers but is minimal. Hx of carpal tunnel B/L. Had similar pain back in 2020. Previous carpal tunnel surgery 06/12/[address] Alvarado. He told him it might come back. States this pain in his arm went away post surgery. Pain is deep in the arm. Moving the shoulder or the neck does not really affect it. Worse at night. GERD: For years has been taking Omeprazole 20 mg 3 days a week and symptoms have been controlled for the most part. About 6 weeks ago started with some upper abdominal pain. Refers to the pain feeling like indigestion and heartburn. Was having some increased gas. Points to upper abdomen and lower part of sternum. Refers to pain just coming on and going away after about 20 minutes. No triggers. He states pain level was about a 7-8/10 when it happens. Started taking the omeprazole daily. Is getting relief from this pain since started taking med daily. Is he estimates 80 % better. Tums seemed to help as well. No nausea or vomiting. No diarrhea. No bloody or black stool. Had non bleeding esophagitis with egd in 2018. He does note that sometimes certain foods like chicken or turkey can stick. No nsaids. Some etoh. HTN: Has been monitoring BP Home numbers have been actually very well. Denies headaches and dizziness. Denies chest pain and shortness of breath. No palpitations or syncope No edema Follows with Cardiology. Sleep study just completed. Waiting for results. HLD: No myalgias. Glucose was 116 but not fasting. Testosterone was low normal. Given heart issues, we may not want to treat the testosterone. Latest Ref Rng 04/27/2024 WBC 3.70 - 11.00 k/uL 5.81 RBC 4.20 - 6.00 m/uL 4.74 Hemoglobin 13.0 - 17.0 g/dL 15.0 Hematocrit 39.0 - 51.0 % 44.9 MCV 80.0 - 100.0 fL 94.7 MCH 26.0 - 34.0 pg 31.6 MCHC 30.5 - 36.0 g/dL 33.4 RDW-CV 11.5 - 15.0 % 12.7 Platelet Count 150 - 400 k/uL 215 MPV 9.0 - 12.7 fL 10.2 Neut% % 52.9 Abs Neut (ANC) 1.45 - 7.50 k/uL 3.08 Lymph% % 30.3 Abs Lymph 1.00 - 4.00 k/uL 1.76 [place]% % 11.7 Abs [place] <0.87 k/uL 0.68 Eosin% % 4.0 Abs Eosin <0.46 k/uL 0.23 Baso% % 0.9 Abs Baso <0.11 k/uL 0.05 Immature Gran % % 0.2 IMMATURE GRANS (ABS) <0.10 k/uL <0.03 NRBC /100 WBC 0.0 Absolute nRBC <0.01 k/uL <0.01 DTYPE Auto Glucose 74 - 99 mg/dL 116 (H) BUN 9 - 24 mg/dL 20 Creatinine 0.73 - 1.22 mg/dL 0.86 Sodium 136 - 144 mmol/L 137 Potassium 3.7 - 5.1 mmol/L 4.4 Chloride 98 - 107 mmol/L 100 CO2 22 - 30 mmol/L 28 Anion Gap 8 - 15 mmol/L 9 Calcium 8.5 - 10.2 mg/dL 9.7 eGFR >=60 mL/min/1.73m? 90 Hemoglobin A1C 4.3 - 5.6 % 5.5 Estimated Average Glucose mg/dL 111 TSH 0.270 - 4.200 mIU/L 2.970 Magnesium 1.7 - 2.3 mg/dL 2.0 Vitamin B12 232 - 1,245 pg/mL 627 Vitamin D 25 Hydroxy 31.0 - 80.0 ng/mL 50.3 Testosterone 193 - 824 ng/dL 213 Legend: (H) High MEDICATIONS: Current Outpatient Medications Medication Sig rosuvastatin (CRESTOR) 40 mg tablet Take 1 tablet by mouth daily at bedtime. omeprazole (PRILOSEC) 20 mg capsule Take 1 capsule by mouth once daily. metoprolol tartrate, short acting, (LOPRESSOR) 50 mg tablet Take 1 tablet by mouth two times a day. hydroCHLOROthiazide 25 mg tablet Take 1 tablet by mouth once daily. Psyllium Seed-Sucrose (METAMUCIL, SUGAR,) Take by mouth once daily. losartan (COZAAR) 100 mg tablet Take 1 tablet by mouth once daily. sildenafil (VIAGRA) 50 mg tablet Take 1 tablet by mouth as needed. albuterol HFA (PROVENTIL HFA, VENTOLIN HFA) 90 mcg/actuation inhaler Inhale 2 Puffs as instructed every 6 hours as needed for wheezing/shortness of breath. apixaban (ELIQUIS) 5 mg tab(s) Take 1 tablet by mouth twice daily. acetaminophen (TYLENOL ORAL) Take by mouth as needed. aspirin 81 mg chewable tablet Take 1 tablet by mouth once daily. therapeutic multivitamin (THERA VITAMIN) tablet Take 1 tablet by mouth daily with breakfast. No current facility-administered medications for this visit. ALLERGIES: ALLERGIES Allergen Reactions Iv Contrast [Iodine] Angioedema IV contrast 06/01/2019 Lipitor [Atorvastat* myalgia Lovastatin myalgia Zlvnilf-Wmm-Ceo Red* Other: See Comments, Myalgia sore joints and muscles PAST MEDICAL HISTORY Diagnosis Date Acute deep vein thrombosis (DVT) of right lower extremity (HCC) 09/27/2017 Arthritis BPH (benign prostatic hypertrophy) with urinary obstruction 10/10/2013 Calculus of kidney Coronary artery disease 2016 Stent ?1 Diverticulitis Essential hypertension, benign GERD (gastroesophageal reflux disease) History of coronary artery stent placement 2016 Hypercalciur (more content not included)... [facility] 05-29-2024 Note HNO ID: [id number] Author: ?, ?, ? Service: ? Author Type: ? Type: Progress Notes Filed: 05/29/2024 09:50 Note Text: Sleep Study Check-In Documentation Date: May 29, 2024 Name: Curtis Guerrier Comments: HST was returned in working order with all sleep questionnaires Jazmyne Mccarty [facility] 05-29-2024 History of Present illness Narrative Sleep Study Check-In Documentation Date: May 29, 2024 Name: Curtis Guerrier Comments: HST was returned in working order with all sleep questionnaires Jazmyne Mccarty [facility] # [id number], date shipped out 05-24-24 [employer] only Tracking mailout: [id number] Tracking return: [id number] May 22, 2024 Standing PSG Orders signed in the last 90 days None Future PSG Orders signed in the last 90 days Ordered Auth. provider HOME SLEEP APNEA TEST (HSAT) [[id number]] 04/17/24 Jason Cook MD Assoc. diagnoses: Fatigue, unspecified type [R53.83], JONAH (obstructive sleep apnea) [G47.33] Q: Indications: A: Obstructive sleep apnea Q: STOP-BANG conditions - Select All That Apply: A: GENDER = male A2: BMI > 35 kg/m2 A3: AGE > 50 A4: high blood PRESSURE A5: OBSERVED sleep apnea A6: TIREDNESS, fatigue or sleepiness during the day Q: Current use of supplemental oxygen during sleep period?: A: No All Prior Sleep Studies (past 365 days) 04/17/2024 11:17 Sleep Studies HOME SLEEP APNEA TEST (HSAT) HOME SLEEP APNEA TEST (HSAT) Order Status: Ordered, Future Expires: 04/17/25 BMI Readings from Last 2 Encounters: 04/17/24 : 37.28 kg/m 04/16/24 : 37.38 kg/m PAST MEDICAL HISTORY Diagnosis Date Acute deep vein thrombosis (DVT) of right lower extremity (HCC) 09/27/2017 Arthritis BPH (benign prostatic hypertrophy) with urinary obstruction 10/10/2013 Calculus of kidney Coronary artery disease 2016 Stent 1 Diverticulitis Essential hypertension, benign GERD (gastroesophageal reflux disease) History of coronary artery stent placement 2016 Hypercalciuria 06/26/2012 Hypercholesterolemia Hyperlipidemia LDL goal < 100 04/17/2013 Other and unspecified hyperlipidemia Prostatic hypertrophy 2016 benign with outflow obstruction S/P CABG x 4 05/04/2017 [employer] workers comp claim Severe obesity with body mass index (BMI) of 35.0 to 35.9 and comorbidity (HCC) Snoring no JONAH Squamous cell skin cancer 05/13/2021 Stroke ([facility] patient denies diagnosis of stroke. Reports history of possible TIA The medical record was reviewed to determine if the proposed sleep study conforms to the [facility] Practice Parameters for the Indications for Polysomnography and Related Procedures, or if the sleep study is indicated for other reasons. Indications for study: JONAH suspected without comorbid medical or sleep disorders Sleep study to be performed: Home Sleep Apnea Test (HSAT) Special instructions: None-follow laboratory protocol [facility] Staff Note: I have read the above protocol, edited as needed, and agree to the plan. Smith Still III, PhD 1:06 PM, 05/22/2024 May 21, 2024 An order has been received for Home Sleep Apnea Test (HSAT) from Dr. Cook, manuel Juarez [facility] Staff. Visit prep complete. Comments :No The sleep study is scheduled for 05/25/24. Insurance: Payor: MEDICARE / Plan: MEDICARE A AND B / Product Type: Medicare / Payer/Plan Subscr Sex Relation Sub. Ins. ID Effective Group Num 1. MEDICARE - [place]* CURTIS GUERRIER 1950 Male Self [id number] [birth year] DOL [id number] [address] [facility] CURTIS GUERRIER 1950 Male Self [id number] [birth year] [id number] Brendon Tabares documented in this encounter [place] 05-24-2024 Note HNO ID: [id number] Author: ?, ?, ? Service: ? Author Type: ? Type: Progress Notes Filed: 05/29/2024 09:50 Note Text: [facility] # [id number], date shipped out 05-24-24 [employer] only Tracking mailout: [id number] Tracking return: [id number] [facility] 05-22-2024 Note HNO ID: [id number] Author: SMITH STILL III, PhD Service: ? Author Type: Physician Type: Progress Notes Filed: 05/29/2024 09:50 Note Text: May 22, 2024 Standing PSG Orders signed in the last 90 days None Future PSG Orders signed in the last 90 days Ordered Auth. provider HOME SLEEP APNEA TEST (HSAT) [[id number]] 04/17/24 Jason Cook MD Assoc. diagnoses: Fatigue, unspecified type [R53.83], JONAH (obstructive sleep apnea) [G47.33] Q: Indications: A: Obstructive sleep apnea Q: STOP-BANG conditions - Select All That Apply: A: GENDER = male A2: BMI > 35 kg/m2 A3: AGE > 50 A4: high blood PRESSURE A5: OBSERVED sleep apnea A6: TIREDNESS, fatigue or sleepiness during the day Q: Current use of supplemental oxygen during sleep period?: A: No All Prior Sleep Studies (past 365 days) 04/17/2024 11:17 Sleep Studies HOME SLEEP APNEA TEST (HSAT) HOME SLEEP APNEA TEST (HSAT) Order Status: Ordered, Future Expires: 04/17/25 BMI Readings from Last 2 Encounters: 04/17/24 : 37.28 kg/m? 04/16/24 : 37.38 kg/m? PAST MEDICAL HISTORY Diagnosis Date Acute deep vein thrombosis (DVT) of right lower extremity (HCC) 09/27/2017 Arthritis BPH (benign prostatic hypertrophy) with urinary obstruction 10/10/2013 Calculus of kidney Coronary artery disease 2016 Stent ?1 Diverticulitis Essential hypertension, benign GERD (gastroesophageal reflux disease) History of coronary artery stent placement 2016 Hypercalciuria 06/26/2012 Hypercholesterolemia Hyperlipidemia LDL goal < 100 04/17/2013 Other and unspecified hyperlipidemia Prostatic hypertrophy 2016 benign with outflow obstruction S/P CABG x 4 05/04/2017 [employer] workers comp claim Severe obesity with body mass index (BMI) of 35.0 to 35.9 and comorbidity (HCC) Snoring no JONAH Squamous cell skin cancer 05/13/2021 Stroke ([facility] patient denies diagnosis of stroke. Reports history of possible TIA The medical record was reviewed to determine if the proposed sleep study conforms to the [facility] Practice Parameters for the Indications for Polysomnography and Related Procedures, or if the sleep study is indicated for other reasons. Indications for study: JOANH suspected without comorbid medical or sleep disorders Sleep study to be performed: Home Sleep Apnea Test (HSAT) Special instructions: None-follow laboratory protocol [facility] Staff Note: I have read the above protocol, edited as needed, and agree to the plan. Smith Still III, PhD 1:06 PM, 05/22/2024 [facility] 05-21-2024 Note HNO ID: [id number] Author: ?, ?, ? Service: ? Author Type: ? Type: Progress Notes Filed: 05/29/2024 09:50 Note Text: May 21, 2024 An order has been received for Home Sleep Apnea Test (HSAT) from Dr. Cook, manuel Juarez. [facility] Staff. Visit prep complete. Comments :No The sleep study is scheduled for 05/25/24. Insurance: Payor: MEDICARE / Plan: MEDICARE A AND B / Product Type: Medicare / Payer/Plan Subscr Sex Relation Sub. Ins. ID Effective Group Num 1. MEDICARE - ME* CURTIS GUERRIER 1950 Male Self [id number] [birth year] DOL [id number] [address] [facility] CURTIS GUERRIER 1950 Male Self [id number] [birth year] [id number] Brendon Rayshawn [facility] 05-07-2024 Telephone encounter Note Prescription Refill Information The patient has been identified by name and date of : Yes Caregiver verified no other encounters exist for this prescription request: Yes Caregiver confirmed with patient/requestor that no other refills are due, in the near future, with this provider at this time: Yes The last office visit in the department: 04/17/2024 Does the patient have a future office visit with this provider/department: Yes Requested Prescriptions Pending Prescriptions Disp Refills rosuvastatin (CRESTOR) 40 mg tablet 90 tablet 3 Sig: Take 1 tablet by mouth daily at bedtime. omeprazole (PRILOSEC) 20 mg capsule 90 capsule 1 Sig: Take 1 capsule by mouth once daily. Elaina Blevins LPN May 07, 2024 1:19 PM [place] 05-07-2024 Miscellaneous Notes Prescription Refill Information The patient has been identified by name and date of : Yes Caregiver verified no other encounters exist for this prescription request: Yes Caregiver confirmed with patient/requestor that no other refills are due, in the near future, with this provider at this time: Yes The last office visit in the department: 04/17/2024 Does the patient have a future office visit with this provider/department: Yes Requested Prescriptions Pending Prescriptions Disp Refills rosuvastatin (CRESTOR) 40 mg tablet 90 tablet 3 Sig: Take 1 tablet by mouth daily at bedtime. omeprazole (PRILOSEC) 20 mg capsule 90 capsule 1 Sig: Take 1 capsule by mouth once daily. Elaina Blevins LPN May 07, 2024 1:19 PM documented in this encounter [place] 04-23-2024 Telephone encounter Note Prescription Refill Information The patient has been identified by name and date of : Yes Caregiver verified no other encounters exist for this prescription request: Yes Caregiver confirmed with patient/requestor that no other refills are due, in the near future, with this provider at this time: Yes The last office visit in the department: 04/17/2024 Does the patient have a future office visit with this provider/department: Yes Requested Prescriptions Pending Prescriptions Disp Refills metoprolol tartrate, short acting, (LOPRESSOR) 50 mg tablet 180 tablet 3 Sig: Take 1 tablet by mouth two times a day. Elaina Blevins LPN April 23, 2024 10:30 AM [place] 04-23-2024 Miscellaneous Notes Prescription Refill Information The patient has been identified by name and date of : Yes Caregiver verified no other encounters exist for this prescription request: Yes Caregiver confirmed with patient/requestor that no other refills are due, in the near future, with this provider at this time: Yes The last office visit in the department: 04/17/2024 Does the patient have a future office visit with this provider/department: Yes Requested Prescriptions Pending Prescriptions Disp Refills metoprolol tartrate, short acting, (LOPRESSOR) 50 mg tablet 180 tablet 3 Sig: Take 1 tablet by mouth two times a day. Elaina Blevins LPN April 23, 2024 10:30 AM documented in this encounter [place] 04-17-2024 Note HNO ID: [id number] Author: JASON COOK MD Service: ? Author Type: Physician Type: Progress Notes Filed: 04/17/2024 11:22 Note Text: Patient presents with: Fatigue: Fatigue after eating HPI: Patient presents today for office visit for follow up. Saw cardiology yesterday. Had gained some weight Was having some increased edema. They did stop the amlodipine and started him in hctz. No shortness of breath. No chest pain. He has not made any changes yet. He is unsure if dependent. No orthopnea. No redness or warmth in the legs. Echo is ordered and to be done per cardiology He mentioned to him that he has periods of rapid onset fatigue. Some times occurs in the evenings. Can happen after dinner but not with other meals. He wanted his sugars check however his glucose has usually been very good. He usually goes to bed at 7 pm and gets up at 3 am so the timing of his fatigue would actually be appropriate. He is unsure if snores. He was told in the past when he was in [facility]. They had suggested he have a sleep apnea test. He was noted to have symptoms associated with apnea while in the hospital. He never had the testing done. Feels pretty refreshed on arising. No polyuria, no polydipsia. No unexplained weight loss. He has a bmp ordered. No hot flashes. No decreased libido. MEDICATIONS: Current Outpatient Medications Medication Sig hydroCHLOROthiazide 25 mg tablet Take 1 tablet by mouth once daily. Psyllium Seed-Sucrose (METAMUCIL, SUGAR,) Take by mouth once daily. omeprazole (PRILOSEC) 20 mg capsule Take 1 capsule by mouth once daily. losartan (COZAAR) 100 mg tablet Take 1 tablet by mouth once daily. sildenafil (VIAGRA) 50 mg tablet Take 1 tablet by mouth as needed. rosuvastatin (CRESTOR) 40 mg tablet Take 1 tablet by mouth daily at bedtime. metoprolol tartrate, short acting, (LOPRESSOR) 50 mg tablet Take 1 tablet by mouth two times a day. albuterol HFA (PROVENTIL HFA, VENTOLIN HFA) 90 mcg/actuation inhaler Inhale 2 Puffs as instructed every 6 hours as needed for wheezing/shortness of breath. apixaban (ELIQUIS) 5 mg tab(s) Take 1 tablet by mouth twice daily. acetaminophen (TYLENOL ORAL) Take by mouth as needed. aspirin 81 mg chewable tablet Take 1 tablet by mouth once daily. therapeutic multivitamin (THERA VITAMIN) tablet Take 1 tablet by mouth daily with breakfast. No current facility-administered medications for this visit. ALLERGIES: ALLERGIES Allergen Reactions Iv Contrast [Iodine] Angioedema IV contrast 06/01/2019 Lipitor [Atorvastat* myalgia Lovastatin myalgia Gsezkae-Qlu-Rkg Red* Other: See Comments, Myalgia sore joints and muscles PAST MEDICAL HISTORY Diagnosis Date Acute deep vein thrombosis (DVT) of right lower extremity (HCC) 09/27/2017 Arthritis BPH (benign prostatic hypertrophy) with urinary obstruction 10/10/2013 Calculus of kidney Coronary artery disease 2016 Stent ?1 Diverticulitis Essential hypertension, benign GERD (gastroesophageal reflux disease) History of coronary artery stent placement 2016 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 Reports history of possible TIA PAST SURGICAL HISTORY Procedure Laterality Date BACK SURGERY HX CABG (4) VEIN GRAFTS AND ARTERIAL GRAFT(S) 10/2016 COLON SURGERY HX COLONOSCOPY 05/28/2014 Diverticular disease- repeat in 2024 COLONOSCOPY FLX DX W/COLLJ SPEC WHEN PFRMD 02/12/2002 Colonoscopy-repeat in COLONOSCOPY FLX DX W/COLLJ SPEC WHEN PFRMD 04/26/2017 Colonoscopy ESOPHAGOGASTRODUODENOSCOPY TRANSORAL DIAGNOSTIC 04/26/2017 EGD EYE SURGERY HX FISSURECTOMY INCL SPHINCTEROTOMY WHEN PERFORMED HEART SURGERY HX HERNIA REPAIR HX LAPS COLECTOMY PRTL W/COLOPXTSTMY LW ANAST 04/14/2016 with mobilization of splenic flexure for diverticulitis PAST SURGICAL HISTORY OF 1982 lower back herniated disc PAST SURGICAL HISTORY OF 2005 low back surgery PAST SURGICAL HISTORY OF 04/04/2015 cardiac stent insertion PAST SURGICAL HISTORY OF 03/2016 colon resection REVISE MEDIAN N/CARPAL TUNNEL SURG Bilateral 06/12/2020 Bilateral carpal tunnel release RPR 1ST INGUN HRNA AGE 4 YRS/> REDUCIBLE Hernia repair, inguinal w/ mesh - right TONSILLECTOMY PRIMARY/SECONDARY Tonsillectomy FAMILY HISTORY Problem Relation Age of Onset Heart Mother from CVA at age 75, CABG Hypertension Father Prostate Cancer Brother Coronary Artery Disease Brother stents other (pancreatic cancer) Sister Coronary Artery Disease Sister Coronary Artery Disease Sister Cance (more content not included)... [facility] 04-17-2024 History of Present illness Narrative Patient presents with: Fatigue: Fatigue after eating HPI: Patient presents today for office visit for follow up. Saw cardiology yesterday. Had gained some weight Was having some increased edema. They did stop the amlodipine and started him in hctz. No shortness of breath. No chest pain. He has not made any changes yet. He is unsure if dependent. No orthopnea. No redness or warmth in the legs. Echo is ordered and to be done per cardiology He mentioned to him that he has periods of rapid onset fatigue. Some times occurs in the evenings. Can happen after dinner but not with other meals. He wanted his sugars check however his glucose has usually been very good. He usually goes to bed at 7 pm and gets up at 3 am so the timing of his fatigue would actually be appropriate. He is unsure if snores. He was told in the past when he was in [facility]. They had suggested he have a sleep apnea test. He was noted to have symptoms associated with apnea while in the hospital. He never had the testing done. Feels pretty refreshed on arising. No polyuria, no polydipsia. No unexplained weight loss. He has a bmp ordered. No hot flashes. No decreased libido. MEDICATIONS: Current Outpatient Medications Medication Sig hydroCHLOROthiazide 25 mg tablet Take 1 tablet by mouth once daily. Psyllium Seed-Sucrose (METAMUCIL, SUGAR,) Take by mouth once daily. omeprazole (PRILOSEC) 20 mg capsule Take 1 capsule by mouth once daily. losartan (COZAAR) 100 mg tablet Take 1 tablet by mouth once daily. sildenafil (VIAGRA) 50 mg tablet Take 1 tablet by mouth as needed. rosuvastatin (CRESTOR) 40 mg tablet Take 1 tablet by mouth daily at bedtime. metoprolol tartrate, short acting, (LOPRESSOR) 50 mg tablet Take 1 tablet by mouth two times a day. albuterol HFA (PROVENTIL HFA, VENTOLIN HFA) 90 mcg/actuation inhaler Inhale 2 Puffs as instructed every 6 hours as needed for wheezing/shortness of breath. apixaban (ELIQUIS) 5 mg tab(s) Take 1 tablet by mouth twice daily. acetaminophen (TYLENOL ORAL) Take by mouth as needed. aspirin 81 mg chewable tablet Take 1 tablet by mouth once daily. therapeutic multivitamin (THERA VITAMIN) tablet Take 1 tablet by mouth daily with breakfast. No current facility-administered medications for this visit. ALLERGIES: ALLERGIES Allergen Reactions Iv Contrast [Iodine] Angioedema IV contrast 06/01/2019 Lipitor [Atorvastat* myalgia Lovastatin myalgia Nqvjxsw-Viz-Brx Red* Other: See Comments, Myalgia sore joints and muscles PAST MEDICAL HISTORY Diagnosis Date Acute deep vein thrombosis (DVT) of right lower extremity (HCC) 09/27/2017 Arthritis BPH (benign prostatic hypertrophy) with urinary obstruction 10/10/2013 Calculus of kidney Coronary artery disease 2016 Stent 1 Diverticulitis Essential hypertension, benign GERD (gastroesophageal reflux disease) History of coronary artery stent placement 2016 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 Reports history of possible TIA PAST SURGICAL HISTORY Procedure Laterality Date BACK SURGERY HX CABG (4) VEIN GRAFTS & ARTERIAL GRAFT(S) 10/2016 COLON SURGERY HX COLONOSCOPY 05/28/2014 Diverticular disease- repeat in 2024 COLONOSCOPY FLX DX W/COLLJ SPEC WHEN PFRMD 02/12/2002 Colonoscopy-repeat in COLONOSCOPY FLX DX W/COLLJ SPEC WHEN PFRMD 04/26/2017 Colonoscopy ESOPHAGOGASTRODUODENOSCOPY TRANSORAL DIAGNOSTIC 04/26/2017 EGD EYE SURGERY HX FISSURECTOMY INCL SPHINCTEROTOMY WHEN PERFORMED HEART SURGERY HX HERNIA REPAIR HX LAPS COLECTOMY PRTL W/COLOPXTSTMY LW ANAST 04/14/2016 with mobilization of splenic flexure for diverticulitis PAST SURGICAL HISTORY OF 1982 lower back herniated disc PAST SURGICAL HISTORY OF 2005 low back surgery PAST SURGICAL HISTORY OF 04/04/2015 cardiac stent insertion PAST SURGICAL HISTORY OF 03/2016 colon resection REVISE MEDIAN N/CARPAL TUNNEL SURG Bilateral 06/12/2020 Bilateral carpal tunnel release RPR 1ST INGUN HRNA AGE 4 YRS/> REDUCIBLE Hernia repair, inguinal w/ mesh - right TONSILLECTOMY PRIMARY/SECONDARY <AGE 12 Tonsillectomy FAMILY HISTORY Problem Relation Age of Onset Heart Mother from CVA at age 75, CABG Hypertension Father Prostate Cancer Brother Coronary Artery Disease Brother stents other (pancreatic cancer) Sister Coronary Artery Disease Sister Coronary Artery Disease Sister Cancer Maternal Grandmother Parkinson s Disease Maternal Grandfather Cancer Paternal Grandfather Social History Tobacco Use Smoking status: Former Current packs/day: 0.00 Types: Cigarettes Quit date: 06/18/1987 Years since quittin.8 Smokeless tobacco: Never Tobacco comments: quit smoking 1987 Vaping Use Vaping status: Never Used Substance Use Topics Alcohol use: Yes Comment: 1glass of wine a day Drug use: No Reviewed current medications, allergies, past medical history, surgical history, family history and social history today. REVIEW OF SYSTEMS All other reviewed and negative other than HPI. HEALTH MAINTENANCE: Reviewed health maintenance issues today and recommended the following in detail. BP Controlled (<130/80) due on 11/11/2022 Advance Directive Discussion due on 03/28/2024 VITALS: BP 168/76 Pulse (!) 56 Wt 104.8 kg (231 lb) SpO2 97% BMI 37.28 kg/m Last 4 Encounter Wt Readings: Date: Wt: 04/16/2024 105.1 kg (231 lb 9.6 oz) 11/30/2023 98.4 kg (217 lb) 10/27/2023 96.6 kg (213 lb) 10/20/2023 97.5 kg (215 lb) PHYSICAL EXAMINATION: General appearance: Well appearing, alert, in no acute distress, well-hydrated, well nourished. Skin: Skin color, texture, turgor normal, no suspicious rashes or lesions Head: Normocephalic, no masses, lesions, tenderness or abnormalities Lungs: Lungs clear to auscultation. No wheezing, rhonchi, rales Heart: RRR without murmur, gallop, or rubs. No ectopy Abdomen: Normal abdominal exam, Abdomen soft, non-tender. Bowel sounds normal. No masses, organomegaly Extremities: No deformities, trace edema, skin discoloration, clubbing or cyanosis. Good capillary refill. ASSESSMENT/PLAN: 1. Weight gain - ICD9: 783.1, ICD10: R63.5 (primary diagnosis) - med changes as above. Get echo. Check labs. Work on diet. 2. Essential hypertension, benign - ICD9: 401.1, ICD10: I10 - agree with med adjustment. 3. Paroxysmal atrial fibrillation (HCC) - ICD9: 427.31, ICD10: I48.0 - THYROID STIMULATING HORMONE 4. ASHD (arteriosclerotic heart disease) - ICD9: 414.00, ICD10: I25.10 - stable. 5. Fatigue, unspecified type - ICD9: 780.79, ICD10: R53.83 - check labs and work on weight reduction. - HOME SLEEP APNEA TEST (HSAT) - COMPLETE BLOOD COUNT AND DIFFERENTIAL - THYROID STIMULATING HORMONE - HEMOGLOBIN A1C - TESTOSTERONE, TOTAL BY IMMUNOASSAY (ADULT MALES, OR INDIVIDUALS ON TESTOSTERONE THERAPY) 6. Class 2 obesity with body mass index (BMI) of 37.0 to 37.9 in adult, unspecified obesity type, unspecified whether serious comorbidity present - ICD9: 278.00, V85.37, ICD10: E66.812, Z68.37 - work on weight loss. - HEMOGLOBIN A1C - VITAMIN D 25 HYDROXY 7. Medication monitoring encounter - ICD9: V58.83, ICD10: Z51.81 - MAGNESIUM - VITAMIN B12 8. JONAH (obstructive sleep apnea) - ICD9: 327.23, ICD10: G47.33 - HOME SLEEP APNEA TEST (HSAT) 9. Screening for diabetes mellitus - ICD9: V77.1, ICD10: Z13.1 - HEMOGLOBIN A1C 10. Sequelae of hyperalimentation - ICD9: 278.8, ICD10: E68 - VITAMIN D 25 HYDROXY Jason Cook MD Keep next appt documented in this encounter [place] 04-16-2024 Note HNO ID: [id number] Author: JOSH LYNCH MD Service: ? Author Type: Physician Type: Progress Notes Filed: 04/16/2024 10:57 Note Text: Josh Lynch MD Interventional Cardiology [address] [place] [address] [phone] Chief Complaint Patient presents with: Established Patient HISTORY OF PRESENT ILLNESS: Mr. Guerrier is a 74 year old male seen my office for follow-up prior history of severe three-vessel coronary artery disease with bypass surgery consisted of a ADDISON to the LAD vein graft to the PDA vein graft to the ramus and vein graft to the diagonal Hypertensive heart disease doing well from the cardiac point of view No angina Swelling in both legs likely caused by the amlodipine No symptoms or signs of congestive heart failure Cardiac Risk Factors age (male over 45, female over 55), hyperlipidemia, Hypertension. 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 Reports history of possible TIA PAST SURGICAL HISTORY Procedure Laterality Date BACK SURGERY HX CABG (4) VEIN GRAFTS AND ARTERIAL GRAFT(S) 10/2016 COLON SURGERY HX COLONOSCOPY 05/28/2014 Diverticular disease- repeat in 2024 COLONOSCOPY FLX DX W/COLLJ SPEC WHEN PFRMD 02/12/2002 Colonoscopy-repeat in COLONOSCOPY FLX DX W/COLLJ SPEC WHEN PFRMD 04/26/2017 Colonoscopy ESOPHAGOGASTRODUODENOSCOPY TRANSORAL DIAGNOSTIC 04/26/2017 EGD EYE SURGERY HX FISSURECTOMY INCL SPHINCTEROTOMY WHEN PERFORMED HEART SURGERY HX HERNIA REPAIR HX LAPS COLECTOMY PRTL W/COLOPXTSTMY LW ANAST 04/14/2016 with mobilization of splenic flexure for diverticulitis PAST SURGICAL HISTORY OF 1982 lower back herniated disc PAST SURGICAL HISTORY OF 2005 low back surgery PAST SURGICAL HISTORY OF 04/04/2015 cardiac stent insertion PAST SURGICAL HISTORY OF 03/2016 colon resection REVISE MEDIAN N/CARPAL TUNNEL SURG Bilateral 06/12/2020 Bilateral carpal tunnel release RPR 1ST INGUN HRNA AGE 4 YRS/> REDUCIBLE Hernia repair, inguinal w/ mesh - right TONSILLECTOMY PRIMARY/SECONDARY Tonsillectomy FAMILY HISTORY Problem Relation Age of Onset Heart Mother from CVA at age 75, CABG Hypertension Father Prostate Cancer Brother Coronary Artery Disease Brother stents other (pancreatic cancer) Sister Coronary Artery Disease Sister Coronary Artery Disease Sister Cancer Maternal Grandmother Parkinson?s Disease Maternal Grandfather Cancer Paternal Grandfather Social History Tobacco Use Smoking status: Former Current packs/day: 0.00 Types: Cigarettes Quit date: 06/18/1987 Years since quittin.8 Smokeless tobacco: Never Tobacco comments: quit smoking 1987 Vaping Use Vaping status: Never Used Substance Use Topics Alcohol use: Yes Comment: 1glass of wine a day Drug use: No ALLERGIES Allergen Reactions Iv Contrast [Iodine] Angioedema IV contrast 06/01/2019 Lipitor [Atorvastat* myalgia Lovastatin myalgia Usiqhhl-Qum-Iqr Red* Other: See Comments, Myalgia sore joints and muscles Medications: Current Outpatient Medications Medication Sig Dispense Refill Psyllium Seed-Sucrose (METAMUCIL, SUGAR,) Take by mouth once daily. omeprazole (PRILOSEC) 20 mg capsule Take 1 capsule by mouth once daily. 90 capsule 1 losartan (COZAAR) 100 mg tablet Take 1 tablet by mouth once daily. 90 tablet 3 sildenafil (VIAGRA) 50 mg tablet Take 1 tablet by mouth as needed. 30 tablet 5 rosuvastatin (CRESTOR) 40 mg tablet Take 1 tablet by mouth daily at bedtime. 90 tablet 3 metoprolol tartrate, short acting, (LOPRESSOR) 50 mg tablet Take 1 tablet by mouth two times a day. 180 tablet 3 albuterol HFA (PROVENTIL HFA, VENTOLIN HFA) 90 mcg/actuation inhaler Inhale 2 Puffs as instructed every 6 hours as needed for wheezing/shortness of breath. 1 Each 2 apixaban (ELIQUIS) 5 mg tab(s) Take 1 tablet by mouth twice daily. 180 tablet 3 acetaminophen (TYLENOL ORAL) Take by mouth as needed. aspirin 81 mg chewable tablet Take 1 tablet by mouth once daily. 60 tablet 0 therapeutic multivitamin (THERA VITAMIN) tablet Take 1 tablet by mouth daily with breakfast. 0 hydroCHLOROthiazide 25 mg tablet Take 1 ta (more content not included)... [facility] 04-16-2024 History of Present illness Narrative Images from the original note were not included. Josh Lynch MD Interventional Cardiology [address] [place] [address] [phone] Chief Complaint Patient presents with: Established Patient HISTORY OF PRESENT ILLNESS: Mr. Guerrier is a 74 year old male seen my office for follow-up prior history of severe three-vessel coronary artery disease with bypass surgery consisted of a ADDISON to the LAD vein graft to the PDA vein graft to the ramus and vein graft to the diagonal Hypertensive heart disease doing well from the cardiac point of view No angina Swelling in both legs likely caused by the amlodipine No symptoms or signs of congestive heart failure Cardiac Risk Factors age (male over 45, female over 55), hyperlipidemia, Hypertension. 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 Reports history of possible TIA PAST SURGICAL HISTORY Procedure Laterality Date BACK SURGERY HX CABG (4) VEIN GRAFTS & ARTERIAL GRAFT(S) 10/2016 COLON SURGERY HX COLONOSCOPY 05/28/2014 Diverticular disease- repeat in 2024 COLONOSCOPY FLX DX W/COLLJ SPEC WHEN PFRMD 02/12/2002 Colonoscopy-repeat in COLONOSCOPY FLX DX W/COLLJ SPEC WHEN PFRMD 04/26/2017 Colonoscopy ESOPHAGOGASTRODUODENOSCOPY TRANSORAL DIAGNOSTIC 04/26/2017 EGD EYE SURGERY HX FISSURECTOMY INCL SPHINCTEROTOMY WHEN PERFORMED HEART SURGERY HX HERNIA REPAIR HX LAPS COLECTOMY PRTL W/COLOPXTSTMY LW ANAST 04/14/2016 with mobilization of splenic flexure for diverticulitis PAST SURGICAL HISTORY OF 1982 lower back herniated disc PAST SURGICAL HISTORY OF 2005 low back surgery PAST SURGICAL HISTORY OF 04/04/2015 cardiac stent insertion PAST SURGICAL HISTORY OF 03/2016 colon resection REVISE MEDIAN N/CARPAL TUNNEL SURG Bilateral 06/12/2020 Bilateral carpal tunnel release RPR 1ST INGUN HRNA AGE 4 YRS/> REDUCIBLE Hernia repair, inguinal w/ mesh - right TONSILLECTOMY PRIMARY/SECONDARY <AGE 11 Tonsillectomy FAMILY HISTORY Problem Relation Age of Onset Heart Mother from CVA at age 75, CABG Hypertension Father Prostate Cancer Brother Coronary Artery Disease Brother stents other (pancreatic cancer) Sister Coronary Artery Disease Sister Coronary Artery Disease Sister Cancer Maternal Grandmother Parkinson s Disease Maternal Grandfather Cancer Paternal Grandfather Social History Tobacco Use Smoking status: Former Current packs/day: 0.00 Types: Cigarettes Quit date: 06/18/1987 Years since quittin.8 Smokeless tobacco: Never Tobacco comments: quit smoking 1987 Vaping Use Vaping status: Never Used Substance Use Topics Alcohol use: Yes Comment: 1glass of wine a day Drug use: No ALLERGIES Allergen Reactions Iv Contrast [Iodine] Angioedema IV contrast 06/01/2019 Lipitor [Atorvastat* myalgia Lovastatin myalgia Fmlwjve-Xwf-Fip Red* Other: See Comments, Myalgia sore joints and muscles Medications: Current Outpatient Medications Medication Sig Dispense Refill Psyllium Seed-Sucrose (METAMUCIL, SUGAR,) Take by mouth once daily. omeprazole (PRILOSEC) 20 mg capsule Take 1 capsule by mouth once daily. 90 capsule 1 losartan (COZAAR) 100 mg tablet Take 1 tablet by mouth once daily. 90 tablet 3 sildenafil (VIAGRA) 50 mg tablet Take 1 tablet by mouth as needed. 30 tablet 5 rosuvastatin (CRESTOR) 40 mg tablet Take 1 tablet by mouth daily at bedtime. 90 tablet 3 metoprolol tartrate, short acting, (LOPRESSOR) 50 mg tablet Take 1 tablet by mouth two times a day. 180 tablet 3 albuterol HFA (PROVENTIL HFA, VENTOLIN HFA) 90 mcg/actuation inhaler Inhale 2 Puffs as instructed every 6 hours as needed for wheezing/shortness of breath. 1 Each 2 apixaban (ELIQUIS) 5 mg tab(s) Take 1 tablet by mouth twice daily. 180 tablet 3 acetaminophen (TYLENOL ORAL) Take by mouth as needed. aspirin 81 mg chewable tablet Take 1 tablet by mouth once daily. 60 tablet 0 therapeutic multivitamin (THERA VITAMIN) tablet Take 1 tablet by mouth daily with breakfast. 0 hydroCHLOROthiazide 25 mg tablet Take 1 tablet by mouth once daily. 90 tablet 3 No current facility-administered medications for this visit. Review of Systems Constitutional: Negative for chills, diaphoresis, fever, malaise/fatigue and weight loss. HENT: Negative for congestion, ear discharge, ear pain, hearing loss, nosebleeds, sinus pain, sore throat and tinnitus. Eyes: Negative for blurred vision, double vision, photophobia, pain, discharge and redness. Respiratory: Negative for cough, hemoptysis, sputum production, shortness of breath, wheezing and stridor. Cardiovascular: Negative for chest pain, palpitations, orthopnea, claudication, leg swelling and PND. Gastrointestinal: Negative for abdominal pain, blood in stool, constipation, diarrhea, heartburn, melena, nausea and vomiting. Genitourinary: Negative for dysuria, flank pain, frequency, hematuria and urgency. Musculoskeletal: Negative for back pain, falls, joint pain, myalgias and neck pain. Skin: Negative for itching and rash. Neurological: Negative for dizziness, tingling, tremors, sensory change, speech change, focal weakness, seizures, loss of consciousness, weakness and headaches. Endo/Heme/Allergies: Negative for environmental allergies and polydipsia. Does not bruise/bleed easily. Psychiatric/Behavioral: Negative for depression, hallucinations, memory loss, substance abuse and suicidal ideas. The patient is not nervous/anxious and does not have insomnia. Physical Examination: Vitals:BP 186/76 Pulse 56 Wt 231 lb 9.6 oz (105.1kg) SpO2 98% BP w/Orthostatic Vitals Date and Time Orthostatic BP Orthostatic Pulse BP Pulse BP Position BP Site BP Cuff Size 04/16/24 0929 -- -- 186/76 56 Sitting Right Arm Large Adult Last 2 Encounter Wt Readings: Date: Wt: 04/16/2024 105.1 kg (231 lb 9.6 oz) 11/30/2023 98.4 kg (217 lb) Physical Exam Constitutional: General: He is not in acute distress. Appearance: He is not diaphoretic. HENT: Head: Normocephalic and atraumatic. Right Ear: External ear normal. Left Ear: External ear normal. Nose: Nose normal. Mouth/Throat: Pharynx: Oropharynx is clear. Eyes: General: Right eye: No discharge. Left eye: No discharge. Conjunctiva/sclera: Conjunctivae normal. Pupils: Pupils are equal, round, and reactive to light. Cardiovascular: Rate and Rhythm: Normal rate and regular rhythm. Heart sounds: Normal heart sounds, S1 normal and S2 normal. No murmur heard. No friction rub. No gallop. No S3 or S4 sounds. Pulmonary: Effort: Pulmonary effort is normal. No respiratory distress. Breath sounds: Normal breath sounds. No wheezing or rales. Chest: Chest wall: No tenderness. Abdominal: General: Abdomen is flat. Musculoskeletal: General: Normal range of motion. Cervical back: Normal range of motion and neck supple. Skin: General: Skin is warm and dry. Neurological: Mental Status: He is alert and oriented to person, place, and time. Psychiatric: Mood and Affect: Mood normal. Thought Content: Thought content normal. Pertinent Labs: CBC: Hemoglobin (g/dL) Date Value 09/26/2023 14.6 05/13/2021 14.9 Hematocrit (%) Date Value 09/26/2023 43.4 05/13/2021 45.7 WBC (k/uL) Date Value 09/26/2023 5.50 05/13/2021 5.89 Platelet Count (k/uL) Date Value 09/26/2023 195 05/13/2021 225 BMP: Glucose (mg/dL) Date Value 11/03/2023 88 10/11/2020 87 Potassium (mmol/L) Date Value 11/03/2023 4.2 10/11/2020 4.4 Sodium (mmol/L) Date Value 11/03/2023 138 10/11/2020 139 Chloride (mmol/L) Date Value 11/03/2023 102 10/11/2020 102 CO2 (mmol/L) Date Value 11/03/2023 26 10/11/2020 26 Creatinine (mg/dL) Date Value 11/03/2023 0.80 10/11/2020 0.83 BUN (mg/dL) Date Value 11/03/2023 16 10/11/2020 12 Anion Gap (mmol/L) Date Value 11/03/2023 10 10/11/2020 11 Calcium (mg/dL) Date Value 10/11/2020 9.5 Calcium, Total (mg/dL) Date Value 11/03/2023 9.1 INR: Lipid Profile: Cholesterol, Total Date Value Ref Range Status 09/26/2023 179 <200 mg/dL Final Comment: <200 mg/dL, Desirable 200-239 mg/dL, Borderline high >239 mg/dL, High HDL Cholesterol Date Value Ref Range Status 09/26/2023 50 >39 mg/dL Final Comment: 40-59 mg/dL, Acceptable >59 mg/dL, High: Negative risk factor for coronary heart disease <40 mg/dL, Low: Positive risk factor for coronary heart disease LDL Cholesterol Date Value Ref Range Status 09/26/2023 94 <100 mg/dL Final Comment: <100 mg/dL, Optimal 100-129 mg/dL, Near optimal/above optimal 130-159 mg/dL, Borderline high 160-189 mg/dL, High >189 mg/dL, Very high Secondary prevention optimal LDL Cholesterol levels are recommended to be < 70 mg/dL Triglyceride Date Value Ref Range Status 09/26/2023 173 (H) <150 mg/dL Final Comment: <150 mg/dL, Normal 150-199 mg/dL, Borderline high 200-499 mg/dL, High >499 mg/dL, Very high Hemoglobin A1C: No results found for: HGBA1C TSH: No results found for: TSHREFL Prior Cardiac Testing none Assessment and Plan: 74 years old gentleman prior history of severe coronary artery disease and bypass surgery ASSESSMENT/PLAN: 1. Primary hypertension - ICD9: 401.9, ICD10: I10 (primary diagnosis) - Controlled - Continue current medications - Recommend home blood pressure monitoring, to bring results to next visit - Encouraged sodium restriction, DASH or Mediterranean diet - Recommend regular aerobic exercise - ECHO - PERFLUTREN LIPID MICROSPHERES 1.1 MG/ML INJECTION IN NS 10 ML - SODIUM CHLORIDE 0.9 % (FLUSH) INJECTION SYRINGE - BASIC METABOLIC PANEL Home blood pressure numbers are within normal range Amlodipine probably caused bilateral leg swelling we will discontinue the amlodipine add hydrochlorothiazide 25 mg daily Blood work after 1 week 2. Coronary artery disease involving [place] coronary artery of [place] heart without angina pectoris - ICD9: 414.01, ICD10: I25.10 Status post bypass surgery continue medical therapy 3. S/P CABG x 4 - ICD9: V45.81, ICD10: Z95.1 No angina continue medical therapy 4. Paroxysmal atrial fibrillation (HCC) - ICD9: 427.31, ICD10: I48.0 Continue anticoagulation rate control Josh Lynch MD Follow up planning: One year Electronically signed by Josh Lynch MD on April 16, 2024, 10:53 AM The above note was partially created using a dictation recognition software. A reasonable attempt has been made to correct any errors. documented in this encounter [place] 04-11-2024 Telephone encounter Note Patient phones requesting refills as follows: Requested Prescriptions Pending Prescriptions Disp Refills amLODIPine (NORVASC) 2.5 mg tablet 90 tablet 3 Sig: Take 1 tablet by mouth once daily. Per Dr. Dietz Please review and advise. Tasia Montes MA [place] 04-11-2024 Miscellaneous Notes Patient phones requesting refills as follows: Requested Prescriptions Pending Prescriptions Disp Refills amLODIPine (NORVASC) 2.5 mg tablet 90 tablet 3 Sig: Take 1 tablet by mouth once daily. Per Dr. Dietz Please review and advise. Tasia Montes MA documented in this encounter [place] 04-11-2024 Telephone encounter Note Patient would like any prescriptions to be sent through [facility]. Please advise and confirm with patient on refills. Thank you. [place] 04-11-2024 Miscellaneous Notes Patient would like any prescriptions to be sent through [facility]. Please advise and confirm with patient on refills. Thank you. documented in this encounter [place] 02-28-2024 Telephone encounter Note Patient came to office and requested letter to stop eliquis for surgery with ENT. Pcp advised patient is taking eliquis for A-fib and only needs to stop 48 hours and can resume next day. Letter generated and given to patient Shania Hernandez MA [place] 02-28-2024 Miscellaneous Notes Patient came to office and requested letter to stop eliquis for surgery with ENT. Pcp advised patient is taking eliquis for A-fib and only needs to stop 48 hours and can resume next day. Letter generated and given to patient Shania Hernandez MA documented in this encounter [place] 02-14-2024 Telephone encounter Note Clearance scanned in from [employer] placed in Dr. syed brothers to be reviewed. Aureliano Kate February 14, 2024 3:31 PM [place] 02-14-2024 Miscellaneous Notes Clearance scanned in from [employer] placed in Dr. lynch box to be reviewed. Aureliano Kate February 14, 2024 3:31 PM documented in this encounter [place] 02-06-2024 Telephone encounter Note Spoke with pt. Notified of test results. Pt voices understanding. Fe Romero RN [place] 02-06-2024 Miscellaneous Notes Spoke with pt. Notified of test results. Pt voices understanding. Fe Romero RN ----- Message from Josh Lynch MD sent at 02/06/2024 10:04 AM EST ----- NORMAL STRESS Please inform patient syed documented in this encounter [place] 02-06-2024 Telephone encounter Note ----- Message from Josh Lynch MD sent at 02/06/2024 10:04 AM EST ----- NORMAL STRESS Please inform patient elainemauricio [place] 02-06-2024 Telephone encounter Note I spoke to Curtis Guerrier and informed them of 's response to stress test results and recommendations. Patient voiced understanding. Lindsay Santiago LPN [place] 02-06-2024 Miscellaneous Notes I spoke to Curtis Guerrier and informed them of 's response to stress test results and recommendations. Patient voiced understanding. Lindsay Santiago LPN ----- Message from Josh Lynch MD sent at 02/06/2024 10:04 AM EST ----- NORMAL STRESS Please inform patient syed documented in this encounter [place] 02-06-2024 Telephone encounter Note ----- Message from Josh Lynch MD sent at 02/06/2024 10:04 AM EST ----- NORMAL STRESS Please inform patient syed [place] 12-26-2023 History of Present illness Narrative RADIOLOGY SERVICE PROGRESS NOTE SERVICE DATE: 12/26/2023 SERVICE TIME: 7:16 AM PATIENT IDENTITY VERIFICATION COMPLETED USING TWO (2) STANDARD IDENTIFIERS: Name and Date of confirmed by patient verbally FALL SCREENING: Has the patient had 2 falls in the last year or 1 fall with injury or currently using an Ambulatory Assistive Device (Walker, Cane, Wheelchair, Crutches, etc.)? No PATIENT GENDER DATA: .male : No ALLERGIES: Reviewed and unchanged MEDICATIONS REVIEWED: No PATIENT RELEVANT IMPLANT DATA REVIEWED: Not Applicable PATIENT PRESENTS WITH AN IMPLANTABLE OR ATTACHED PAYROLL ACCOUNTING MANAGER: No CREATININE: Creatinine Date Value Ref Range Status 11/03/2023 0.80 0.73 - 1.22 mg/dL Final 09/26/2023 0.86 0.73 - 1.22 mg/dL Final 09/08/2023 1.00 0.73 - 1.22 mg/dL Final Estimated Glomerular Filtration Rate Date Value Ref Range Status 11/03/2023 93 >=60 mL/min/1.73m Final Comment: Estimated Glomerular Filtration Rate (eGFR) is calculated using the 2020 CKD-EPI creatinine equation. This equation utilizes serum creatinine, sex, and age as parameters. The creatinine assay has traceable calibration to isotope dilution-mass spectrometry. Refer to KDIGO guidelines for clinical interpretation. In patients with unstable renal function, e.g. those with acute kidney injury, the eGFR may not accurately reflect actual GFR. eGFR- Date Value Ref Range Status 10/11/2020 >60 Final P.O.C.T. RESULTS: N/A December 26, [address] PERFORMED: No IV SITE: Ambulatory: A peripheral IV was started in the Right antecubital site with a Angio cath: 22 gauge. POST EXAM PIV STATUS: Discontinued PROCEDURE TYPE: NM Stress: 13.8 mCi [id number] was administered IV for Rest Imaging at 0710 by NATALIE. 32.0 mCi [id number] was administered IV for Stress Imaging at 0900 by NATALIE. PATIENT DISCHARGED TO: Ambulatory patient, left NM department area. A Diagnostic radioactive procedure has taken place, with no further precautions necessary other than routine body substance precautions. More information regarding radiation safety can be found using this link: [email or web address]%20Nuclear%20Medicine% [email or web address] SIGNATURE: JULIUS Domingo) PATIENT NAME: Curtis Guerrier DATE: December 26, 2023 TIME: 7:16 AM PAGER/CONTACT #: documented in this encounter [place] 12-26-2023 Note HNO ID: [id number] Author: ANDREAS NGUYEN RT (R) Service: Nuclear Medicine Author Type: Technologist Type: Progress Notes Filed: 12/26/2023 09:06 Note Text: RADIOLOGY SERVICE PROGRESS NOTE SERVICE DATE: 12/26/2023 SERVICE TIME: 7:16 AM PATIENT IDENTITY VERIFICATION COMPLETED USING TWO (2) STANDARD IDENTIFIERS: Name and Date of confirmed by patient verbally FALL SCREENING: Has the patient had 2 falls in the last year or 1 fall with injury or currently using an Ambulatory Assistive Device (Walker, Cane, Wheelchair, Crutches, etc.)? No PATIENT GENDER DATA: .male : No ALLERGIES: Reviewed and unchanged MEDICATIONS REVIEWED: No PATIENT RELEVANT IMPLANT DATA REVIEWED: Not Applicable PATIENT PRESENTS WITH AN IMPLANTABLE OR ATTACHED PAYROLL ACCOUNTING MANAGER: No CREATININE: Creatinine Date Value Ref Range Status 11/03/2023 0.80 0.73 - 1.22 mg/dL Final 09/26/2023 0.86 0.73 - 1.22 mg/dL Final 09/08/2023 1.00 0.73 - 1.22 mg/dL Final Estimated Glomerular Filtration Rate Date Value Ref Range Status 11/03/2023 93 >=60 mL/min/1.73m? Final Comment: Estimated Glomerular Filtration Rate (eGFR) is calculated using the 2020 CKD-EPI creatinine equation. This equation utilizes serum creatinine, sex, and age as parameters. The creatinine assay has traceable calibration to isotope dilution-mass spectrometry. Refer to KDIGO guidelines for clinical interpretation. In patients with unstable renal function, e.g. those with acute kidney injury, the eGFR may not accurately reflect actual GFR. eGFR- Date Value Ref Range Status 10/11/2020 >60 Final P.O.C.T. RESULTS: N/A December 26, [address] PERFORMED: No IV SITE: Ambulatory: A peripheral IV was started in the Right antecubital site with a Angio cath: 22 gauge. POST EXAM PIV STATUS: Discontinued PROCEDURE TYPE: NM Stress: 13.8 mCi [id number] was administered IV for Rest Imaging at 0710 by NATALIE. 32.0 mCi [id number] was administered IV for Stress Imaging at 0900 by NATALIE. PATIENT DISCHARGED TO: Ambulatory patient, left [place] department area. A Diagnostic radioactive procedure has taken place, with no further precautions necessary other than routine body substance precautions. More information regarding radiation safety can be found using this link: [email or web address] 20Diagnostic%20Nuclear%20Medicine%20Pr [email or web address] SIGNATURE: RT Chayo(R) PATIENT NAME: Curtis Guerrier DATE: December 26, 2023 TIME: 7:16 AM PAGER/CONTACT #: [facility] 11-30-2023 Note HNO ID: [id number] Author: JASON COOK MD Service: ? Author Type: Physician Type: Progress Notes Filed: 11/30/2023 09:04 Note Text: Patient presents with: 6 Month Exam HPI: Patient presents today for office visit for follow up. HTN: Continues on Losartan 100 mg daily Amlodipine 2.5 mg daily Monitors his BP at home. Readings have been pretty good. Avg 130/75. Denies chest pain. Denies headaches. Denies palpitations and syncope. No new or worsening edema. 10/07 seen in [facility]. Dx with Cellulitis of right leg. Hospitalized for 3 days. Still with some swelling to right ankle. Denies redness or warmth. Is much better. Has a compression sock but not wearing it. Overall is much better. Saw [facility] post hospitalization. Needs clearance completed. from Dr Lynch. He states it has not yet been received. He has given instructions for holding eliquis Follows with Cardiology. Continues on Eliquis. Workup being done for shortness of breath. Scheduled for stress test on 12/26/23. Seeing cardiology. Saw [facility] for hoarseness. 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 Having procedure done for correction on 12/06/[address] Lynch is aware and managing eliquis post op. HLD: No myalgias. GERD: Continues taking Omeprazole. States he only takes this 3 times a week. Symptoms controlled. No GI complaints. Denies any bloody or black stool. Notes he [facility]. Saw Dr. Tinoco with Urology. Had lithotripsy 09/15/23. Completed 24 hr urine. Has not heard from Dr. Tinoco about this. No bleeding or bruising. Latest Ref Rng 09/26/2023 WBC 3.70 - 11.00 k/uL 5.50 RBC 4.20 - 6.00 m/uL 4.56 Hemoglobin 13.0 - 17.0 g/dL 14.6 Hematocrit 39.0 - 51.0 % 43.4 MCV 80.0 - 100.0 fL 95.2 MCH 26.0 - 34.0 pg 32.0 MCHC 30.5 - 36.0 g/dL 33.6 RDW-CV 11.5 - 15.0 % 12.7 Platelet Count 150 - 400 k/uL 195 MPV 9.0 - 12.7 fL 9.8 Neut% % 56.6 Abs Neut (ANC) 1.45 - 7.50 k/uL 3.12 Lymph% % 31.3 Abs Lymph 1.00 - 4.00 k/uL 1.72 [place]% % 9.3 Abs [place] <0.87 k/uL 0.51 Eosin% % 2.2 Abs Eosin <0.46 k/uL 0.12 Baso% % 0.4 Abs Baso <0.11 k/uL <0.03 Immature Gran % % 0.2 IMMATURE GRANS (ABS) <0.10 k/uL <0.03 NRBC /100 WBC 0.0 Absolute nRBC <0.01 k/uL <0.01 DTYPE Auto Protein, Total 6.3 - 8.0 g/dL 6.3 Albumin 3.9 - 4.9 g/dL 4.1 Calcium 8.5 - 10.2 mg/dL 8.9 Bilirubin, Total 0.2 - 1.3 mg/dL 0.8 Alkaline Phosphatase 38 - 113 U/L 51 AST 14 - 40 U/L 17 ALT 10 - 54 U/L 13 Glucose 74 - 99 mg/dL 101 (H) BUN 9 - 24 mg/dL 17 Creatinine 0.73 - 1.22 mg/dL 0.86 Sodium 136 - 144 mmol/L 136 Potassium 3.7 - 5.1 mmol/L 4.4 Chloride 98 - 107 mmol/L 104 CO2 22 - 30 mmol/L 22 Anion Gap 8 - 15 mmol/L 10 eGFR >=60 mL/min/1.73m? 91 Cholesterol, Total <200 mg/dL 179 Triglyceride <150 mg/dL 173 (H) HDL Cholesterol >39 mg/dL 50 Non HDL Cholesterol <130 mg/dL 129 Fasting Time hrs 12 VLDL Cholesterol <30 mg/dL 35 (H) TC:HDL Ratio <5.10 3.58 LDL Cholesterol <100 mg/dL 94 LDL:HDL Ratio <2.54 1.88 PSA Screening <2.60 ng/mL 1.41 Legend: (H) High MEDICATIONS: Current Outpatient Medications Medication Sig Psyllium Seed-Sucrose (METAMUCIL, SUGAR,) Take by mouth once daily. amLODIPine (NORVASC) 2.5 mg tablet Take 1 tablet by mouth once daily. Per Dr. Dietz omeprazole (PRILOSEC) 20 mg capsule Take 1 capsule by mouth once daily. losartan (COZAAR) 100 mg tablet Take 1 tablet by mouth once daily. sildenafil (VIAGRA) 50 mg tablet Take 1 tablet by mouth as needed. rosuvastatin (CRESTOR) 40 mg tablet Take 1 tablet by mouth daily at bedtime. metoprolol tartrate, short acting, (LOPRESSOR) 50 mg tablet Take 1 tablet by mouth two times a day. albuterol HFA (PROVENTIL HFA, VENTOLIN HFA) 90 mcg/actuation inhaler Inhale 2 Puffs as instructed every 6 hours as needed for wheezing/shortness of breath. apixaban (ELIQUIS) 5 mg tab(s) Take 1 tablet by mouth twice daily. acetaminophen (TYLENOL ORAL) Take by mouth as needed. aspirin 81 mg chewable tablet Take 1 tablet by mouth once daily. therapeutic multivitamin (THERA VITAMIN) tablet Take 1 tablet by mouth daily with breakfast. No current facility-administered medications for this visit. ALLERGIES: ALLERGIES Allergen Reactions Iv Contrast [Iodine] Angioedema IV contrast 06/01/2019 Lipitor [Atorvastat* myalgia Lovastatin myalgia Evxzzkw-Gze-Xqt Red* Other: See Comments, Myalgia sore joints and muscles PAST MEDICAL HISTORY 09/27/2017: Acute deep vein thrombosis (DVT) of right lower extremity (HCC) No date: Arthritis 10/10/2013: BPH (benign prostatic hypertrophy) with urinary obstruction No date: Calculus of kidney 2016: Coronary artery disease Comment: Stent ?1 No date: Diverticulitis No date: Essential hypertension, benign No date: GERD (gastroesophageal reflux disease) 2016: History of coronary artery stent placement 06/26/2012: Hyperc (more content not included)... [facility] 11-30-2023 History of Present illness Narrative Patient presents with: 6 Month Exam HPI: Patient presents today for office visit for follow up. HTN: Continues on Losartan 100 mg daily Amlodipine 2.5 mg daily Monitors his BP at home. Readings have been pretty good. Avg 130/75. Denies chest pain. Denies headaches. Denies palpitations and syncope. No new or worsening edema. 10/07 seen in [facility]. Dx with Cellulitis of right leg. Hospitalized for 3 days. Still with some swelling to right ankle. Denies redness or warmth. Is much better. Has a compression sock but not wearing it. Overall is much better. Saw [facility] post hospitalization. Needs clearance completed. from Dr Lynch. He states it has not yet been received. He has given instructions for holding eliquis Follows with Cardiology. Continues on Eliquis. Workup being done for shortness of breath. Scheduled for stress test on 12/26/23. Seeing cardiology. Saw [facility] for hoarseness. 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 Having procedure done for correction on 12/06/[address] Lynch is aware and managing eliquis post op. HLD: No myalgias. GERD: Continues taking Omeprazole. States he only takes this 3 times a week. Symptoms controlled. No GI complaints. Denies any bloody or black stool. Notes he [facility]. Saw Dr. Tinoco with Urology. Had lithotripsy 09/15/23. Completed 24 hr urine. Has not heard from Dr. Tinoco about this. No bleeding or bruising. Latest Ref Rng 09/26/2023 WBC 3.70 - 11.00 k/uL 5.50 RBC 4.20 - 6.00 m/uL 4.56 Hemoglobin 13.0 - 17.0 g/dL 14.6 Hematocrit 39.0 - 51.0 % 43.4 MCV 80.0 - 100.0 fL 95.2 MCH 26.0 - 34.0 pg 32.0 MCHC 30.5 - 36.0 g/dL 33.6 RDW-CV 11.5 - 15.0 % 12.7 Platelet Count 150 - 400 k/uL 195 MPV 9.0 - 12.7 fL 9.8 Neut% % 56.6 Abs Neut (ANC) 1.45 - 7.50 k/uL 3.12 Lymph% % 31.3 Abs Lymph 1.00 - 4.00 k/uL 1.72 [place]% % 9.3 Abs [place] <0.87 k/uL 0.51 Eosin% % 2.2 Abs Eosin <0.46 k/uL 0.12 Baso% % 0.4 Abs Baso <0.11 k/uL <0.03 Immature Gran % % 0.2 IMMATURE GRANS (ABS) <0.10 k/uL <0.03 NRBC /100 WBC 0.0 Absolute nRBC <0.01 k/uL <0.01 DTYPE Auto Protein, Total 6.3 - 8.0 g/dL 6.3 Albumin 3.9 - 4.9 g/dL 4.1 Calcium 8.5 - 10.2 mg/dL 8.9 Bilirubin, Total 0.2 - 1.3 mg/dL 0.8 Alkaline Phosphatase 38 - 113 U/L 51 AST 14 - 40 U/L 17 ALT 10 - 54 U/L 13 Glucose 74 - 99 mg/dL 101 (H) BUN 9 - 24 mg/dL 17 Creatinine 0.73 - 1.22 mg/dL 0.86 Sodium 136 - 144 mmol/L 136 Potassium 3.7 - 5.1 mmol/L 4.4 Chloride 98 - 107 mmol/L 104 CO2 22 - 30 mmol/L 22 Anion Gap 8 - 15 mmol/L 10 eGFR >=60 mL/min/1.73m 91 Cholesterol, Total <200 mg/dL 179 Triglyceride <150 mg/dL 173 (H) HDL Cholesterol >39 mg/dL 50 Non HDL Cholesterol <130 mg/dL 129 Fasting Time hrs 12 VLDL Cholesterol <30 mg/dL 35 (H) TC:HDL Ratio <5.10 3.58 LDL Cholesterol <100 mg/dL 94 LDL:HDL Ratio <2.54 1.88 PSA Screening <2.60 ng/mL 1.41 Legend: (H) High MEDICATIONS: Current Outpatient Medications Medication Sig Psyllium Seed-Sucrose (METAMUCIL, SUGAR,) Take by mouth once daily. amLODIPine (NORVASC) 2.5 mg tablet Take 1 tablet by mouth once daily. Per Dr. Dietz omeprazole (PRILOSEC) 20 mg capsule Take 1 capsule by mouth once daily. losartan (COZAAR) 100 mg tablet Take 1 tablet by mouth once daily. sildenafil (VIAGRA) 50 mg tablet Take 1 tablet by mouth as needed. rosuvastatin (CRESTOR) 40 mg tablet Take 1 tablet by mouth daily at bedtime. metoprolol tartrate, short acting, (LOPRESSOR) 50 mg tablet Take 1 tablet by mouth two times a day. albuterol HFA (PROVENTIL HFA, VENTOLIN HFA) 90 mcg/actuation inhaler Inhale 2 Puffs as instructed every 6 hours as needed for wheezing/shortness of breath. apixaban (ELIQUIS) 5 mg tab(s) Take 1 tablet by mouth twice daily. acetaminophen (TYLENOL ORAL) Take by mouth as needed. aspirin 81 mg chewable tablet Take 1 tablet by mouth once daily. therapeutic multivitamin (THERA VITAMIN) tablet Take 1 tablet by mouth daily with breakfast. No current facility-administered medications for this visit. ALLERGIES: ALLERGIES Allergen Reactions Iv Contrast [Iodine] Angioedema IV contrast 06/01/2019 Lipitor [Atorvastat* myalgia Lovastatin myalgia Fcenodd-Nuh-Vzs Red* Other: See Comments, Myalgia sore joints and muscles PAST MEDICAL HISTORY 09/27/2017: Acute deep vein thrombosis (DVT) of right lower extremity (HCC) No date: Arthritis 10/10/2013: BPH (benign prostatic hypertrophy) with urinary obstruction No date: Calculus of kidney 2016: Coronary artery disease Comment: Stent 1 No date: Diverticulitis No date: Essential hypertension, benign No date: GERD (gastroesophageal reflux disease) 2016: History of coronary artery stent placement 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 Reports history of possible TIA PAST SURGICAL HISTORY No date: BACK SURGERY HX 10/2016: CABG (4) VEIN GRAFTS & ARTERIAL GRAFT(S) No date: COLON SURGERY HX 05/28/2014: COLONOSCOPY Comment: Diverticular disease- repeat in 202402/12/2002: COLONOSCOPY FLX DX W/COLLJ SPEC WHEN PFRMD Comment: Colonoscopy-repeat in 04/26/2017: COLONOSCOPY FLX DX W/COLLJ SPEC WHEN PFRMD Comment: Colonoscopy 04/26/2017: ESOPHAGOGASTRODUODENOSCOPY TRANSORAL DIAGNOSTIC Comment: EGD No date: EYE SURGERY HX No date: FISSURECTOMY INCL SPHINCTEROTOMY WHEN PERFORMED No date: HEART SURGERY HX No date: HERNIA REPAIR HX 04/14/2016: LAPS COLECTOMY PRTL W/COLOPXTSTMY LW ANAST Comment: with mobilization of splenic flexure for diverticulitis 1983: PAST SURGICAL HISTORY OF Comment: lower back herniated disc 2006: PAST SURGICAL HISTORY OF Comment: low back surgery 04/04/2015: PAST SURGICAL HISTORY OF Comment: cardiac stent insertion 03/2016: PAST SURGICAL HISTORY OF Comment: colon resection 06/12/2020: REVISE MEDIAN N/CARPAL TUNNEL SURG; Bilateral Comment: Bilateral carpal tunnel release No date: RPR 1ST INGUN HRNA AGE 4 YRS/> REDUCIBLE Comment: Hernia repair, inguinal w/ mesh - right No date: TONSILLECTOMY PRIMARY/SECONDARY <AGE 11 Comment: Tonsillectomy FAMILY HISTORY Problem Relation Age of Onset Heart Mother from CVA at age 75, CABG Hypertension Father Prostate Cancer Brother Coronary Artery Disease Brother stents other (pancreatic cancer) Sister Coronary Artery Disease Sister Coronary Artery Disease Sister Cancer Maternal Grandmother Parkinson s Disease Maternal Grandfather Cancer Paternal Grandfather Social History Tobacco Use Smoking status: Former Current packs/day: 0.00 Types: Cigarettes Quit date: 06/18/1987 Years since quittin.4 Smokeless tobacco: Never Tobacco comments: quit smoking 1987 Vaping Use Vaping status: Never Used Substance Use Topics Alcohol use: Yes Comment: 1glass of wine a day Drug use: No Reviewed current medications, allergies, past medical history, surgical history, family history and social history today. REVIEW OF SYSTEMS All other reviewed and negative other than HPI. HEALTH MAINTENANCE: Reviewed health maintenance issues today and recommended the following in detail. Depression Screening Never done Anxiety Screening Never done BP Controlled (<130/80) due on 11/11/2022 Influenza Vaccine(1) due on 11/27/2023 VITALS: BP 132/62 Pulse (!) 59 Ht 167.6 cm (5' 6) Wt 98.4 kg (217 lb) SpO2 99% BMI 35.02 kg/m Last 4 Encounter Wt Readings: Date: Wt: 10/27/2023 96.6 kg (213 lb) 10/20/2023 97.5 kg (215 lb) 10/03/2023 100.4 kg (221 lb 6.4 oz) 09/08/2023 98.1 kg (216 lb 3.2 oz) PHYSICAL EXAMINATION: General appearance: Well appearing, alert, in no acute distress, well-hydrated, well nourished. Skin: Skin color, texture, turgor normal, no suspicious rashes or lesions Head: Normocephalic, no masses, lesions, tenderness or abnormalities Neck: Supple, no adenopathy; thyroid symmetric, normal size, no bruits Lungs: Lungs clear to auscultation. No wheezing, rhonchi, rales Heart: RRR without murmur, gallop, or rubs. No ectopy Abdomen: Normal abdominal exam, Abdomen soft, non-tender. Bowel sounds normal. No masses, organomegaly Extremities: No deformities, edema, skin discoloration, clubbing or cyanosis. Good capillary refill. Musculoskeletal: No joint swelling, deformity, or tenderness Peripheral pulses: Normal ASSESSMENT/PLAN: 1. Vocal cord paralysis - ICD9: 478.30, ICD10: J38.00 (primary diagnosis) - medically cleared as long as ok with cardiology. He states they are still waiting on his form from cardiology. 2. Essential hypertension, benign - ICD9: 401.1, ICD10: I10 - Controlled - Continue current medications 3. Hyperlipidemia with target LDL less than 100 - ICD9: 272.4, ICD10: E78.5 - Controlled - Continue current medications 4. ASHD (arteriosclerotic heart disease) - ICD9: 414.00, ICD10: I25.10 - stable. 5. Paroxysmal atrial fibrillation (HCC) - ICD9: 427.31, ICD10: I48.0 - stable. Has orders to hold eliquis two days before procedure from cardiology. 6. Gastroesophageal reflux disease without esophagitis - ICD9: 530.81, ICD10: K21.9 - stable. 7. Benign prostatic hyperplasia with urinary obstruction - ICD9: 600.01, 599.69, ICD10: N40.1, N13.8 - stable. 8. Lipid disorder - ICD9: 272.9, ICD10: E78.9 - stable. 9. Hearing loss, unspecified hearing loss type, unspecified laterality - ICD9: 389.9, ICD10: H91.90 - using hearing aid. 10. Obesity (BMI 30-39.9) - ICD9: 278.00, ICD10: E66.9 - stable. 11. Screening for depression - ICD9: V79.0, ICD10: Z13.31 - DEPRESSION SCREENING 12. Encounter for screening examination for other mental health and behavioral disorders - ICD9: V79.8, ICD10: Z13.39 - ANXIETY SCREENING Jason Cook MD documented in this encounter [place] 11-22-2023 Telephone encounter Note Cardiac/Medication clearance received from [facility] for R voacl cord injection with Dr. Suresh Jaquez, Mateo TBD. Clearance scanned in - Placed in Dr. Syed brothers to be reviewed. Aureliano Kate November 22, 2023 10:42 AM [place] 11-22-2023 Miscellaneous Notes Cardiac/Medication clearance received from [facility] for R voacl cord injection with Dr. Suresh Jaquez, Mateo TBD. Clearance scanned in - Placed in Dr. Syed brothers to be reviewed. Aureliano Kate November 22, 2023 10:42 AM documented in this encounter [place] 11-18-2023 Telephone encounter Note [employer] has been scanned in. Ena DÍAZ [place] 11-18-2023 Miscellaneous Notes [employer] has been scanned in. Ena DÍAZ documented in this encounter [place] 11-02-2023 Note HNO ID: [id number] Author: MILA KRAUSE RN Service: ? Author Type: Registered Nurse Type: Progress Notes Filed: 11/02/2023 15:10 Note Text: Transitional Care Management (TCM) Follow-Up Note PCP Update / Actionable Items Please see below for further TCM Outreach information/details. N/A - No specialty updates needed Patient Source: [id number] (OON) Discharge Outreach Summary: TCM Update Spoke with patient States he is healing well Wearing compression sock during day Swelling is almost gone Finished antibiotics and extra doses of diuretic Went on treadmill for first time, went very well Eating and drinking well Patient reports he lost his voice Went to ENT outside of [facility] Found out that half of larynx is paralyzed Worst case is it is a tumor in his chest pressing against nerve, or could be tumor in thyroid, or could be viral (most desirable) Going to have cat scan and US of chest and neck next week States he is scared Emotional support provided No mention of any further new or worsening symptoms Denies any further needs or concerns. Advised to notify PCP for recurring, new/worsening symptoms. Verbalized understanding. Patient discharged from [facility] Hospital Discharge date: 10/11/2023 Admitted for: cellulitis right LE Readmission Risk: n/a Value-Based Contract: ACO Contact: Contact made with patient: Yes Spoke to: Patient Validation: Validated the person spoken to is actively involved in the patient's care. The patient was identified by Name and Date of . I'd like to get an update on how you're doing since our last phone call. Is now a good time to talk? Yes Symptoms: Are you feeling about the same, better or worse since leaving the hospital? Better Weekly Outreach: 3rd Outreach (Reminder to complete appropriate education topics with the patient.) Medications: Do you have any questions about taking your medications, including which medications you should be on, or do you need refills on your medications? No Patient Questions / Concerns: Do you have any questions related to your discharge? No Appointment / TCM Follow-Up: Have you had a follow-up visit with your Primary Care Provider or Specialist since you were discharged? Yes Do you need any assistance with scheduling or changing your follow-up appointments? Patient already has an appointment scheduled Education N/A Targets addressed / completed during outreach: N/A Outreach Outcome: Continue TCM Outreach for remainder of 30 days Care Management partners utilized: N/A Mila Krause RN November 02, 2023 3:09 PM [facility] 11-02-2023 History of Present illness Narrative Transitional Care Management (TCM) Follow-Up Note PCP Update / Actionable Items Please see below for further TCM Outreach information/details. N/A - No specialty updates needed Patient Source: [id number] (OON) Discharge Outreach Summary: TCM Update Spoke with patient States he is healing well Wearing compression sock during day Swelling is almost gone Finished antibiotics and extra doses of diuretic Went on treadmill for first time, went very well Eating and drinking well Patient reports he lost his voice Went to ENT outside of [facility] Found out that half of larynx is paralyzed Worst case is it is a tumor in his chest pressing against nerve, or could be tumor in thyroid, or could be viral (most desirable) Going to have cat scan and US of chest and neck next week States he is scared Emotional support provided No mention of any further new or worsening symptoms Denies any further needs or concerns. Advised to notify PCP for recurring, new/worsening symptoms. Verbalized understanding. Patient discharged from [facility] Hospital Discharge date: 10/11/2023 Admitted for: cellulitis right LE Readmission Risk: n/a Value-Based Contract: ACO Contact: Contact made with patient: Yes Spoke to: Patient Validation: Validated the person spoken to is actively involved in the patient's care. The patient was identified by Name and Date of . I'd like to get an update on how you're doing since our last phone call. Is now a good time to talk? Yes Symptoms: Are you feeling about the same, better or worse since leaving the hospital? Better Weekly Outreach: 3rd Outreach (Reminder to complete appropriate education topics with the patient.) Medications: Do you have any questions about taking your medications, including which medications you should be on, or do you need refills on your medications? No Patient Questions / Concerns: Do you have any questions related to your discharge? No Appointment / TCM Follow-Up: Have you had a follow-up visit with your Primary Care Provider or Specialist since you were discharged? Yes Do you need any assistance with scheduling or changing your follow-up appointments? Patient already has an appointment scheduled Education N/A Targets addressed / completed during outreach: N/A Outreach Outcome: Continue TCM Outreach for remainder of 30 days Care Management partners utilized: N/A Mila Krause RN November 02, 2023 3:09 PM documented in this encounter [place] 11-02-2023 Note Patient Outreach ([facility]) ---- FAREEDCURTIS Rhianna ([id number]) 1950 M Date Time Provider Department [facility] During your visit today, we recorded the following information about you: Mila Krause RN 11/02/2023 3:10 PM Signed Transitional Care Management (TCM) Follow-Up Note PCP Update / Actionable Items Please see below for further TCM Outreach information/details. 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 Advised to notify PCP for recurring, new/worsening symptoms. Verbalized understanding. Patient discharged from [facility]. Hospital Discharge date: 10/11/2023 Admitted for: cellulitis right LE Readmission Risk: n/a Value-Based Contract: ACO Contact: Contact made with patient: Yes Spoke to: Patient Validation: Validated the person spoken to is actively involved in the patient's care. The patient was identified by Name and Date of . I'd like to get an update on how you're doing since our last phone call. Is now a good time to talk? Yes Symptoms: Are you feeling about the same, better or worse since leaving the hospital? Better Weekly Outreach: 3rd Outreach (Reminder to complete appropriate education topics with the patient.) Medications: Do you have any questions about taking your medications, including which medications you should be on, or do you need refills on your medications? No Patient Questions / Concerns: Do you have any questions related to your discharge? No Appointment / TCM Follow-Up: Have you had a follow-up visit with your Primary Care Provider or Specialist since you were discharged? Yes Do you need any assistance with scheduling or changing your follow-up appointments? Patient already has an appointment scheduled Education N/A Targets addressed / completed during outreach: N/A Outreach Outcome: Continue TCM Outreach for remainder of 30 days Care Management partners utilized: N/A Mila Krause RN November 02, 2023 3:09 PM Allergies As of Date: 11/02/2023 Noted Allergy Reaction IV CONTRAST (IODINE) 06/04/2019 18 - Angioedema Comments: IV contrast 06/01/2019 LIPITOR (ATORVASTATIN CALCIUM) 03/06/2007 Comments: myalgia LOVASTATIN 03/06/2007 Comments: myalgia GMSCHOE-[id number]-WTO REDUCTASE INHIBIT*04/05/2011 14 - Other: See Comments 17 - Myalgia Comments: sore joints and muscles Date Reviewed: 10/27/2023 Reviewed by: Elaina Amezcua APRN.PRODUCTION TEAM MANAGER - Fully Assessed Reason for Visit: Transition Of Care [4074] Cmt: TCM Follow Up Prescriptions as of 11/02/2023 - cephALEXin (KEFLEX) 500 mg capsule Take 1 capsule by mouth two times a day for 10 days. - furosemide (LASIX) 20 mg tablet Take 1 tablet by mouth once daily. - amLODIPine (NORVASC) 2.5 mg tablet Take 1 tablet by mouth once daily. Per Dr. Dietz - omeprazole (PRILOSEC) 20 mg capsule Take 1 capsule by mouth once daily. - losartan (COZAAR) 100 mg tablet Take 1 tablet by mouth once daily. - sildenafil (VIAGRA) 50 mg tablet Take 1 tablet by mouth as needed. - rosuvastatin (CRESTOR) 40 mg tablet Take 1 tablet by mouth daily at bedtime. - metoprolol tartrate, short acting, (LOPRESSOR) 50 mg tablet Take 1 tablet by mouth two times a day. - albuterol HFA (PROVENTIL HFA, VENTOLIN HFA) 90 mcg/actuation inhaler Inhale 2 Puffs as instructed every 6 hours as needed for wheezing/shortness of breath. - apixaban (ELIQUIS) 5 mg tab(s) Take 1 tablet by mouth twice daily. - acetaminophen (TYLENOL ORAL) Take by mouth as needed. - aspirin 81 mg chewable tablet Take 1 tablet by mouth once daily. - therapeutic multivitamin (THERA VITAMIN) tablet Take 1 tablet by mouth daily with breakfast. Meds Comments as of 11/08/2014: Advil as needed. Heather Odonnell Ma Problem List As Of Date 11/02/2023 Noted Resolved Essential hypertension, benign [I10] Sciatica [M54.30] 03/06/2007 12/04/2015 Anal fissure [K60.2] 11/04/2008 12/04/2015 Hearing loss [H91.90] 01/12/2010 Hematuria [R31.9] 05/23/2012 12/04/2015 Urinary frequency [R35.0] 05/23/2012 07/18/2018 Hypercalciuria [R82.994] 06/26/2012 Hyperlipidemia with target LDL less than 100 (more content not included)... [facility] 10-27-2023 Instructions Elaina Amezcua APRN.CNP - 10/27/2023 2:23 PM EDT 1) Keep using Moisturizer & support stockings 2) Cephalexin 2 x day for 10 days 3) Furosemide daily for 7 javon days 4) Check labs in 1 week 5) Consult ENT documented in this encounter [place] 10-27-2023 Note HNO ID: [id number] Author: ELAINA AMEZCUA APRN.CNP Service: ? Author Type: Clinical Nurse Specialist Type: Progress Notes Filed: 10/27/2023 14:26 Note Text: This is a 73 year old male who presents today with: Patient presents with: Cellulitis: Follow up Throat Problem: Laryngitis for 11 days HISTORY OF PRESENT ILLNESS: Curtis Guerrier is a 73 year old male. Patient presents with: Cellulitis: Follow up Throat Problem: Laryngitis for 11 days [facility] 10/11/23 Cellulitis/Sepsis Seen twice in ER for swollen glands in right groin, loss of appetite. Some loss of bowel and bladder function. Had severe pain in right leg upon standing that lasted briefly with standing. Most of pain is better. Bowel and bladder function increased. Still, leg is swollen and blisters on lateral ankle. Using Aquaphor on ankle. Now has laryngitis for last 4 days. Right inner thigh aching. Discharged on amoxicillin and doxycycline Had an ultrasound of leg that ruled out DVT. Also, on DOAC. Right foot much better. Still some periods of diaphoresis. Right lateral ankle still a little tender Out of antibiotics since Tuesday. Finished week of furosemide. Some chills. Finished Zpak Also, worried about hoarseness for 11 days PAST MEDICAL HISTORY: PAST MEDICAL HISTORY 09/27/2017: Acute deep vein thrombosis (DVT) of right lower extremity (HCC) No date: Arthritis 10/10/2013: BPH (benign prostatic hypertrophy) with urinary obstruction No date: Calculus of kidney 2016: Coronary artery disease Comment: Stent ?1 No date: Diverticulitis No date: Essential hypertension, benign No date: GERD (gastroesophageal reflux disease) 2016: History of coronary artery stent placement 06/26/2012: Hypercalciuria No date: Hypercholesterolemia 04/17/2013: Hyperlipidemia LDL goal < 100 No date: Other and unspecified hyperlipidemia 2016: Prostatic hypertrophy Comment: benign with outflow obstruction 05/04/2017: S/P CABG x 4 Comment: October 2016 No date: Sciatica Comment: workers comp claim No date: Severe obesity with body mass index (BMI) of 35.0 to 35.9 and comorbidity ([facility]) No date: Snoring Comment: no JONAH 05/13/2021: Squamous cell skin cancer No date: Stroke ([facility]) Comment: patient denies diagnosis of stroke. Reports history of possible TIA PAST SURGICAL HISTORY No date: BACK SURGERY HX 10/2016: CABG (4) VEIN GRAFTS AND ARTERIAL GRAFT(S) No date: COLON SURGERY HX 05/28/2014: COLONOSCOPY Comment: Diverticular disease- repeat in 202402/12/2002: COLONOSCOPY FLX DX W/COLLJ SPEC WHEN PFRMD Comment: Colonoscopy-repeat in 04/26/2017: COLONOSCOPY FLX DX W/COLLJ SPEC WHEN PFRMD Comment: Colonoscopy 04/26/2017: ESOPHAGOGASTRODUODENOSCOPY TRANSORAL DIAGNOSTIC Comment: EGD No date: EYE SURGERY HX No date: FISSURECTOMY INCL SPHINCTEROTOMY WHEN PERFORMED No date: HEART SURGERY HX No date: HERNIA REPAIR HX 04/14/2016: LAPS COLECTOMY PRTL W/COLOPXTSTMY LW ANAST Comment: with mobilization of splenic flexure for diverticulitis 1982: PAST SURGICAL HISTORY OF Comment: lower back herniated disc 2005: PAST SURGICAL HISTORY OF Comment: low back surgery 04/04/2015: PAST SURGICAL HISTORY OF Comment: cardiac stent insertion 03/2016: PAST SURGICAL HISTORY OF Comment: colon resection 06/12/2020: REVISE MEDIAN N/CARPAL TUNNEL SURG; Bilateral Comment: Bilateral carpal tunnel release No date: RPR 1ST INGUN HRNA AGE 4 YRS/> REDUCIBLE Comment: Hernia repair, inguinal w/ mesh - right No date: TONSILLECTOMY PRIMARY/SECONDARY Comment: Tonsillectomy ALLERGIES Iv Contrast [Iodine], Lipitor [Atorvastatin Calcium], Lovastatin, and Ofacaxu-Mdq-Wgv Reductase Inhibitors MEDICATIONS Current Outpatient Medications Medication Sig furosemide (LASIX) 20 mg tablet Take 1 tablet by mouth once daily. amLODIPine (NORVASC) 2.5 mg tablet Take 1 tablet by mouth once daily. Per Dr. Dietz omeprazole (PRILOSEC) 20 mg capsule Take 1 capsule by mouth once daily. losartan (COZAAR) 100 mg tablet Take 1 tablet by mouth once daily. sildenafil (VIAGRA) 50 mg tablet Take 1 tablet by mouth as needed. rosuvastatin (CRESTOR) 40 mg tablet Take 1 tablet by mouth daily at bedtime. metoprolol tartrate, short acting, (LOPRESSOR) 50 mg tablet Take 1 tablet by mouth two times a day. albuterol HFA (PROVENTIL HFA, VENTOLIN HFA) 90 mcg/actuation inhaler Inhale 2 Puffs as instructed every 6 hours as needed for wheezing/shortness of breath. apixaban (ELIQUIS) 5 mg tab(s) Take 1 tablet by mouth twice daily. acetaminophen (TYLENOL ORAL) Take by mouth as needed. aspirin 81 mg chewable tablet Take 1 tablet by mouth once daily. therapeutic multivitamin (THERA VITAMIN) tablet Take 1 tablet by mouth daily with breakfast. No current facility-administered medications for this visit. FAMILY HISTORY Problem Relation Age of Onset Heart Mother from CVA at age 75, CABG Hypertension Father Prostate (more content not included)... [facility] 10-27-2023 History of Present illness Narrative This is a 73 year old male who presents today with: Patient presents with: Cellulitis: Follow up Throat Problem: Laryngitis for 11 days HISTORY OF PRESENT ILLNESS: Curtis Guerrier is a 73 year old male. Patient presents with: Cellulitis: Follow up Throat Problem: Laryngitis for 11 days [facility] 10/11/23 Cellulitis/Sepsis Seen twice in ER for swollen glands in right groin, loss of appetite. Some loss of bowel and bladder function. Had severe pain in right leg upon standing that lasted briefly with standing. Most of pain is better. Bowel and bladder function increased. Still, leg is swollen and blisters on lateral ankle. Using Aquaphor on ankle. Now has laryngitis for last 4 days. Right inner thigh aching. Discharged on amoxicillin and doxycycline Had an ultrasound of leg that ruled out DVT. Also, on DOAC. Right foot much better. Still some periods of diaphoresis. Right lateral ankle still a little tender Out of antibiotics since Tuesday. Finished week of furosemide. Some chills. Finished Zpak Also, worried about hoarseness for 11 days PAST MEDICAL HISTORY: PAST MEDICAL HISTORY 09/27/2017: Acute deep vein thrombosis (DVT) of right lower extremity (HCC) No date: Arthritis 10/10/2013: BPH (benign prostatic hypertrophy) with urinary obstruction No date: Calculus of kidney 2016: Coronary artery disease Comment: Stent 1 No date: Diverticulitis No date: Essential hypertension, benign No date: GERD (gastroesophageal reflux disease) 2016: History of coronary artery stent placement 06/26/2012: Hypercalciuria No date: Hypercholesterolemia 04/17/2013: Hyperlipidemia LDL goal < 100 No date: Other and unspecified hyperlipidemia 2016: Prostatic hypertrophy Comment: benign with outflow obstruction 05/04/2017: S/P CABG x 4 Comment: October 2016 No date: Sciatica Comment: workers comp claim No date: Severe obesity with body mass index (BMI) of 35.0 to 35.9 and comorbidity (HCC) No date: Snoring Comment: no JONAH 05/13/2021: Squamous cell skin cancer No date: Stroke (HCC) Comment: patient denies diagnosis of stroke. Reports history of possible TIA PAST SURGICAL HISTORY No date: BACK SURGERY HX 10/2016: CABG (4) VEIN GRAFTS & ARTERIAL GRAFT(S) No date: COLON SURGERY HX 05/28/2014: COLONOSCOPY Comment: Diverticular disease- repeat in 202402/12/2002: COLONOSCOPY FLX DX W/COLLJ SPEC WHEN PFRMD Comment: Colonoscopy-repeat in 04/26/2017: COLONOSCOPY FLX DX W/COLLJ SPEC WHEN PFRMD Comment: Colonoscopy 04/26/2017: ESOPHAGOGASTRODUODENOSCOPY TRANSORAL DIAGNOSTIC Comment: EGD No date: EYE SURGERY HX No date: FISSURECTOMY INCL SPHINCTEROTOMY WHEN PERFORMED No date: HEART SURGERY HX No date: HERNIA REPAIR HX 04/14/2016: LAPS COLECTOMY PRTL W/COLOPXTSTMY LW ANAST Comment: with mobilization of splenic flexure for diverticulitis 1983: PAST SURGICAL HISTORY OF Comment: lower back herniated disc 2006: PAST SURGICAL HISTORY OF Comment: low back surgery 04/04/2015: PAST SURGICAL HISTORY OF Comment: cardiac stent insertion 03/2016: PAST SURGICAL HISTORY OF Comment: colon resection 06/12/2020: REVISE MEDIAN N/CARPAL TUNNEL SURG; Bilateral Comment: Bilateral carpal tunnel release No date: RPR 1ST INGUN HRNA AGE 4 YRS/> REDUCIBLE Comment: Hernia repair, inguinal w/ mesh - right No date: TONSILLECTOMY PRIMARY/SECONDARY <AGE 11 Comment: Tonsillectomy ALLERGIES Iv Contrast [Iodine], Lipitor [Atorvastatin Calcium], Lovastatin, and Zgcopip-Aew-Mse Reductase Inhibitors MEDICATIONS Current Outpatient Medications Medication Sig furosemide (LASIX) 20 mg tablet Take 1 tablet by mouth once daily. amLODIPine (NORVASC) 2.5 mg tablet Take 1 tablet by mouth once daily. Per Dr. Dietz omeprazole (PRILOSEC) 20 mg capsule Take 1 capsule by mouth once daily. losartan (COZAAR) 100 mg tablet Take 1 tablet by mouth once daily. sildenafil (VIAGRA) 50 mg tablet Take 1 tablet by mouth as needed. rosuvastatin (CRESTOR) 40 mg tablet Take 1 tablet by mouth daily at bedtime. metoprolol tartrate, short acting, (LOPRESSOR) 50 mg tablet Take 1 tablet by mouth two times a day. albuterol HFA (PROVENTIL HFA, VENTOLIN HFA) 90 mcg/actuation inhaler Inhale 2 Puffs as instructed every 6 hours as needed for wheezing/shortness of breath. apixaban (ELIQUIS) 5 mg tab(s) Take 1 tablet by mouth twice daily. acetaminophen (TYLENOL ORAL) Take by mouth as needed. aspirin 81 mg chewable tablet Take 1 tablet by mouth once daily. therapeutic multivitamin (THERA VITAMIN) tablet Take 1 tablet by mouth daily with breakfast. No current facility-administered medications for this visit. FAMILY HISTORY Problem Relation Age of Onset Heart Mother from CVA at age 75, CABG Hypertension Father Prostate Cancer Brother Coronary Artery Disease Brother stents other (pancreatic cancer) Sister Coronary Artery Disease Sister Coronary Artery Disease Sister Cancer Maternal Grandmother Parkinson s Disease Maternal Grandfather Cancer Paternal Grandfather Social History Tobacco Use Smoking status: Former Types: Cigarettes Quit date: 06/18/1987 Years since quittin.3 Smokeless tobacco: Never Tobacco comments: quit smoking 1987 Vaping Use Vaping Use: Never used Substance Use Topics Alcohol use: Yes Comment: 1glass of wine a day Drug use: No EXAM: BP 140/60 Temp 36.7 C (98 F) (Tympanic) Wt 96.6 kg (213 lb) SpO2 98% BMI 34.38 kg/m PHYSICAL EXAM: Physical Exam Vitals reviewed. Constitutional: Appearance: Normal appearance. HENT: Head: Normocephalic. Neck: Vascular: No carotid bruit. Cardiovascular: Rate and Rhythm: Normal rate and regular rhythm. Pulses: Normal pulses. Heart sounds: Normal heart sounds. Pulmonary: Effort: Pulmonary effort is normal. Breath sounds: Normal breath sounds. Abdominal: Palpations: Abdomen is soft. Musculoskeletal: Cervical back: Normal range of motion and neck supple. Comments: 1 + edema from mid-foot to mid calf, also slightly red and slightly warm Lymphadenopathy: Cervical: No cervical adenopathy. Skin: Comments: Right lateral malleolar area with 2 scab. Sloughing of dermis. Granulation tissue starting. Neurological: Mental Status: He is alert. LABS: ASSESSMENT/PLAN: 1. Laryngitis - ICD9: 464.00, ICD10: J04.0 (primary diagnosis) 11 days, no improvement (no pain) - CONSULT TO ENT 2. Cellulitis of skin - ICD9: 682.9, ICD10: L03.90 - Begin treatment with Cephalaxin (Keflex) - Continue furosemide for 1 week - BMP & Magnesium Discussed treatment plan and patient voices understanding. Patient's questions answered appropriately. Medications and potential side effects were discussed and patient voices understanding. Return to the office as scheduled or as needed for worsening/no improvement. Elaina Amezcua APRN.FATUMA documented in this encounter [place] 10-26-2023 Note HNO ID: [id number] Author: CHE VERDIN RN Service: ? Author Type: Registered Nurse Type: Progress Notes Filed: 10/26/2023 15:03 Note Text: Transitional Care Management (TCM) Follow-Up Note PCP Update / Actionable Items Pt 's leg swelling and blistering much improved with Lasix and compression, did complete antibiotics and has ongoing concerns for laryngitis. Fam med f/u tomorrow. N/A - No specialty updates needed Patient Source: [facility] ([facility]) Discharge Patient discharged from [facility] Hospital Discharge date: 10/11/23 Admitted for: Cellultis right LE Readmission Risk: n/a Value-Based Contract: ACO Contact: Contact made with patient: Yes Spoke to: Patient Validation: Validated the person spoken to is actively involved in the patient's care. The patient was identified by Name and Date of . I'd like to get an update on how you're doing since our last phone call. Is now a good time to talk? Yes Symptoms: Are you feeling about the same, better or worse since leaving the hospital? Better Weekly Outreach: 3rd Outreach (Reminder to complete appropriate education topics with the patient.) Medications: Do you have any questions about taking your medications, including which medications you should be on, or do you need refills on your medications? No Pt taking Lasix as rx and wearing compression hose for the increased swelling - will decide tomorrow if needing to continue. Finished antibiotics on Tuesday. Patient Questions / Concerns: Do you have any questions related to your discharge? No Appointment / TCM Follow-Up: Have you had a follow-up visit with your Primary Care Provider or Specialist since you were discharged? yes Do you need any assistance with scheduling or changing your follow-up appointments? Patient already has an appointment scheduled Education N/A Targets addressed / completed during outreach: N/A Outreach Outcome: Continue TCM Outreach for remainder of 30 days Care Management partners utilized: N/A Che Verdin RN October 26, 2023 2:58 PM [facility] 10-26-2023 History of Present illness Narrative Transitional Care Management (TCM) Follow-Up Note PCP Update / Actionable Items Pt 's leg swelling and blistering much improved with Lasix and compression, did complete antibiotics and has ongoing concerns for laryngitis. Fam med f/u tomorrow. N/A - No specialty updates needed Patient Source: [facility] ([facility]) Discharge Patient discharged from [facility] Hospital Discharge date: 10/11/23 Admitted for: Cellultis right LE Readmission Risk: n/a Value-Based Contract: ACO Contact: Contact made with patient: Yes Spoke to: Patient Validation: Validated the person spoken to is actively involved in the patient's care. The patient was identified by Name and Date of . I'd like to get an update on how you're doing since our last phone call. Is now a good time to talk? Yes Symptoms: Are you feeling about the same, better or worse since leaving the hospital? Better Weekly Outreach: 3rd Outreach (Reminder to complete appropriate education topics with the patient.) Medications: Do you have any questions about taking your medications, including which medications you should be on, or do you need refills on your medications? No Pt taking Lasix as rx and wearing compression hose for the increased swelling - will decide tomorrow if needing to continue. Finished antibiotics on Tuesday. Patient Questions / Concerns: Do you have any questions related to your discharge? No Appointment / TCM Follow-Up: Have you had a follow-up visit with your Primary Care Provider or Specialist since you were discharged? yes Do you need any assistance with scheduling or changing your follow-up appointments? Patient already has an appointment scheduled Education N/A Targets addressed / completed during outreach: N/A Outreach Outcome: Continue TCM Outreach for remainder of 30 days Care Management partners utilized: N/A Che Verdin RN October 26, 2023 2:58 PM documented in this encounter [place] 10-26-2023 Note Patient Outreach ([facility]) ---- CURTIS GUERRIER ([id number]) 1950 M Date Time Provider Department 10/26/23 CHE VERDIN [facility] [place] During your visit today, we recorded the following information about you: Che Verdin RN 10/26/2023 3:03 PM Signed Transitional Care Management (TCM) Follow-Up Note PCP Update / Actionable Items Pt 's leg swelling and blistering much improved with Lasix and compression, did complete antibiotics and has ongoing concerns for laryngitis. Fam med f/u tomorrow. N/A - No specialty updates needed Patient Source: [facility] ([facility]) Discharge Patient discharged from [facility] Hospital Discharge date: 10/11/23 Admitted for: Cellultis right LE Readmission Risk: n/a Value-Based Contract: ACO Contact: Contact made with patient: Yes Spoke to: Patient Validation: Validated the person spoken to is actively involved in the patient's care. The patient was identified by Name and Date of . I'd like to get an update on how you're doing since our last phone call. Is now a good time to talk? Yes Symptoms: Are you feeling about the same, better or worse since leaving the hospital? Better Weekly Outreach: 3rd Outreach (Reminder to complete appropriate education topics with the patient.) Medications: Do you have any questions about taking your medications, including which medications you should be on, or do you need refills on your medications? No Pt taking Lasix as rx and wearing compression hose for the increased swelling - will decide tomorrow if needing to continue. Finished antibiotics on Tuesday. Patient Questions / Concerns: Do you have any questions related to your discharge? No Appointment / TCM Follow-Up: Have you had a follow-up visit with your Primary Care Provider or Specialist since you were discharged? yes Do you need any assistance with scheduling or changing your follow-up appointments? Patient already has an appointment scheduled Education N/A Targets addressed / completed during outreach: N/A Outreach Outcome: Continue TCM Outreach for remainder of 30 days Care Management partners utilized: N/A Che Verdin RN October 26, 2023 2:58 PM Allergies As of Date: 10/26/2023 Noted Allergy Reaction IV CONTRAST (IODINE) 06/04/2019 18 - Angioedema Comments: IV contrast 06/01/2019 LIPITOR (ATORVASTATIN CALCIUM) 03/06/2007 Comments: myalgia LOVASTATIN 03/06/2007 Comments: myalgia [id number]-[id number] REDUCTASE INHIBIT*04/05/2011 14 - Other: See Comments 17 - Myalgia Comments: sore joints and muscles Date Reviewed: 10/20/2023 Reviewed by: Elaina Amezcua APRN.PRODUCTION TEAM MANAGER - Fully Assessed Prescriptions as of 10/26/2023 - furosemide (LASIX) 20 mg tablet Take 1 tablet by mouth once daily. - amLODIPine (NORVASC) 2.5 mg tablet Take 1 tablet by mouth once daily. Per Dr. Dietz - omeprazole (PRILOSEC) 20 mg capsule Take 1 capsule by mouth once daily. - losartan (COZAAR) 100 mg tablet Take 1 tablet by mouth once daily. - sildenafil (VIAGRA) 50 mg tablet Take 1 tablet by mouth as needed. - rosuvastatin (CRESTOR) 40 mg tablet Take 1 tablet by mouth daily at bedtime. - metoprolol tartrate, short acting, (LOPRESSOR) 50 mg tablet Take 1 tablet by mouth two times a day. - albuterol HFA (PROVENTIL HFA, VENTOLIN HFA) 90 mcg/actuation inhaler Inhale 2 Puffs as instructed every 6 hours as needed for wheezing/shortness of breath. - apixaban (ELIQUIS) 5 mg tab(s) Take 1 tablet by mouth twice daily. - acetaminophen (TYLENOL ORAL) Take by mouth as needed. - aspirin 81 mg chewable tablet Take 1 tablet by mouth once daily. - therapeutic multivitamin (THERA VITAMIN) tablet Take 1 tablet by mouth daily with breakfast. Meds Comments as of 11/08/2014: Advil as needed. Heather Odonnell Ma Problem List As Of Date 10/26/2023 Noted Resolved Essential hypertension, benign [I10] Sciatica [M54.30] 03/06/2007 12/04/2015 Anal fissure [K60.2] 11/04/2008 12/04/2015 Hearing loss [H91.90] 01/12/2010 Hematuria [R31.9] 05/23/2012 12/04/2015 Urinary frequency [R35.0] 05/23/2012 07/18/2018 Hypercalciuria [R82.994] 06/26/2012 Hyperlipidemia with target LDL less than 100 [E*04/17/2013 History of kidney stones [Z87.442] 06/18/2013 Elevated PSA [R97.20] 06/18/2013 11/11/2021 BPH (benign prostatic hypertrophy) with urinary*10/10/2013 Diverticulitis of colon [K57.32] 05/20/2014 07/18/2018 GERD (gastroesophageal reflux disease) [K21.9] 05/20/2014 Abdominal pain, acute, right upper quadrant [R1*11/08/2014 12/04/2015 Presence of drug coated stent in LAD coronary a*05/05/2015 Obesity (BMI 30-39.9) [E66.9] 10/15/2015 LLQ pain [R10.32] 11/20/2015 12/04/2015 Atherosclerosis of [place] coronary artery with *11/08/2016 05/04/2017 Lipid disorder [E78.9] 11/08/2016 Atelectasis [J98.11] 11/12/2016 07/18/2018 Postprocedural hypotension [I9 (more content not included)... [facility] 10-20-2023 Instructions Elaina Ameczua APRN.PRODUCTION TEAM MANAGER - 10/20/2023 2:22 PM EDT 1) Furosemide daily for 1 week 2) Keep leg elevated and compressed 3) Azithromycin, 2 today and 1 daily for 4 more days 4) Follow up in 1 week (will do labs) documented in this encounter [place] 10-20-2023 Note HNO ID: [id number] Author: ELAINA AMEZCUA APRN.PRODUCTION TEAM MANAGER Service: ? Author Type: Clinical Nurse Specialist Type: Progress Notes Filed: 10/20/2023 14:23 Note Text: This is a 73 year old male who presents today with: Patient presents with: Hospital F/U: [facility] 10/11/23 Cellulitis/Sepsis HISTORY OF PRESENT ILLNESS: Curtis Guerrier is a 73 year old male. Patient presents with: Hospital F/U: [facility] 10/11/23 Cellulitis/Sepsis Seen twice in ER for swollen glands in right groin, loss of appetite. Some loss of bowel and bladder function. Had severe pain in right leg upon standing that lasted briefly with standing. Most of pain is better. Bowel and bladder function increased. Still, leg is swollen and blisters on lateral ankle. Using Aquaphor on ankle. Now has laryngitis for last 4 days. Right inner thigh aching. Discharged on amoxicillin and doxycycline Had an ultrasound of leg that ruled out DVT. Also, on DOAC. PAST MEDICAL HISTORY: PAST MEDICAL HISTORY Diagnosis Date Acute deep vein thrombosis (DVT) of right lower extremity (HCC) 09/27/2017 Arthritis BPH (benign prostatic hypertrophy) with urinary obstruction 10/10/2013 Calculus of kidney Coronary artery disease 2016 Stent ?1 Diverticulitis Essential hypertension, benign GERD (gastroesophageal reflux disease) History of coronary artery stent placement 2016 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 Reports history of possible TIA PAST SURGICAL HISTORY Procedure Laterality Date BACK SURGERY HX CABG (4) VEIN GRAFTS AND ARTERIAL GRAFT(S) 10/2016 COLON SURGERY HX COLONOSCOPY 05/28/2014 Diverticular disease- repeat in 2024 COLONOSCOPY FLX DX W/COLLJ SPEC WHEN PFRMD 02/12/2002 Colonoscopy-repeat in COLONOSCOPY FLX DX W/COLLJ SPEC WHEN PFRMD 04/26/2017 Colonoscopy ESOPHAGOGASTRODUODENOSCOPY TRANSORAL DIAGNOSTIC 04/26/2017 EGD EYE SURGERY HX FISSURECTOMY INCL SPHINCTEROTOMY WHEN PERFORMED HEART SURGERY HX HERNIA REPAIR HX LAPS COLECTOMY PRTL W/COLOPXTSTMY LW ANAST 04/14/2016 with mobilization of splenic flexure for diverticulitis PAST SURGICAL HISTORY OF 1982 lower back herniated disc PAST SURGICAL HISTORY OF 2005 low back surgery PAST SURGICAL HISTORY OF 04/04/2015 cardiac stent insertion PAST SURGICAL HISTORY OF 03/2016 colon resection REVISE MEDIAN N/CARPAL TUNNEL SURG Bilateral 06/12/2020 Bilateral carpal tunnel release RPR 1ST INGUN HRNA AGE 4 YRS/> REDUCIBLE Hernia repair, inguinal w/ mesh - right TONSILLECTOMY PRIMARY/SECONDARY Tonsillectomy ALLERGIES Iv Contrast [Iodine], Lipitor [Atorvastatin Calcium], Lovastatin, and Clefnaf-Gdc-Wlj Reductase Inhibitors MEDICATIONS Current Outpatient Medications Medication Sig amLODIPine (NORVASC) 2.5 mg tablet Take 1 tablet by mouth once daily. Per Dr. Dietz omeprazole (PRILOSEC) 20 mg capsule Take 1 capsule by mouth once daily. losartan (COZAAR) 100 mg tablet Take 1 tablet by mouth once daily. sildenafil (VIAGRA) 50 mg tablet Take 1 tablet by mouth as needed. rosuvastatin (CRESTOR) 40 mg tablet Take 1 tablet by mouth daily at bedtime. metoprolol tartrate, short acting, (LOPRESSOR) 50 mg tablet Take 1 tablet by mouth two times a day. apixaban (ELIQUIS) 5 mg tab(s) Take 1 tablet by mouth twice daily. acetaminophen (TYLENOL ORAL) Take by mouth as needed. aspirin 81 mg chewable tablet Take 1 tablet by mouth once daily. therapeutic multivitamin (THERA VITAMIN) tablet Take 1 tablet by mouth daily with breakfast. albuterol HFA (PROVENTIL HFA, VENTOLIN HFA) 90 mcg/actuation inhaler Inhale 2 Puffs as instructed every 6 hours as needed for wheezing/shortness of breath. No current facility-administered medications for this visit. FAMILY HISTORY Problem Relation Age of Onset Heart Mother from CVA at age 75, CABG Hypertension Father Prostate Cancer Brother Coronary Artery Disease Brother stents other (pancreatic cancer) Sister Coronary Artery Disease Sister Coronary Artery Disease Sister Cancer Maternal Grandmother Parkinson?s Disease Maternal Grandfather Cancer Paternal Grandfather Social History Tobacco Use Smoking status: Former Types: Cigarettes Quit date: 06/18/1987 Years since quittin.3 Smokeless tobacco: Never Tobacco comments: quit smoking 1987 Vaping Use Vaping Use: Never used Substance Use Topics Alcohol use: Yes Comment: 1glass of wine a day Drug use: No REVIEW OF SYSTEMS GENERAL: + Purposeful weight loss, malaise or fevers/chills since discharge but did have night s (more content not included)... [facility] 10-20-2023 History of Present illness Narrative This is a 73 year old male who presents today with: Patient presents with: Hospital F/U: [facility] 10/11/23 Cellulitis/Sepsis HISTORY OF PRESENT ILLNESS: Curtis Guerrier is a 73 year old male. Patient presents with: Hospital F/U: [facility] 10/11/23 Cellulitis/Sepsis Seen twice in ER for swollen glands in right groin, loss of appetite. Some loss of bowel and bladder function. Had severe pain in right leg upon standing that lasted briefly with standing. Most of pain is better. Bowel and bladder function increased. Still, leg is swollen and blisters on lateral ankle. Using Aquaphor on ankle. Now has laryngitis for last 4 days. Right inner thigh aching. Discharged on amoxicillin and doxycycline Had an ultrasound of leg that ruled out DVT. Also, on DOAC. PAST MEDICAL HISTORY: PAST MEDICAL HISTORY Diagnosis Date Acute deep vein thrombosis (DVT) of right lower extremity (HCC) 09/27/2017 Arthritis BPH (benign prostatic hypertrophy) with urinary obstruction 10/10/2013 Calculus of kidney Coronary artery disease 2016 Stent 1 Diverticulitis Essential hypertension, benign GERD (gastroesophageal reflux disease) History of coronary artery stent placement 2016 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 Reports history of possible TIA PAST SURGICAL HISTORY Procedure Laterality Date BACK SURGERY HX CABG (4) VEIN GRAFTS & ARTERIAL GRAFT(S) 10/2016 COLON SURGERY HX COLONOSCOPY 05/28/2014 Diverticular disease- repeat in 2024 COLONOSCOPY FLX DX W/COLLJ SPEC WHEN PFRMD 02/12/2002 Colonoscopy-repeat in COLONOSCOPY FLX DX W/COLLJ SPEC WHEN PFRMD 04/26/2017 Colonoscopy ESOPHAGOGASTRODUODENOSCOPY TRANSORAL DIAGNOSTIC 04/26/2017 EGD EYE SURGERY HX FISSURECTOMY INCL SPHINCTEROTOMY WHEN PERFORMED HEART SURGERY HX HERNIA REPAIR HX LAPS COLECTOMY PRTL W/COLOPXTSTMY LW ANAST 04/14/2016 with mobilization of splenic flexure for diverticulitis PAST SURGICAL HISTORY OF 1982 lower back herniated disc PAST SURGICAL HISTORY OF 2005 low back surgery PAST SURGICAL HISTORY OF 04/04/2015 cardiac stent insertion PAST SURGICAL HISTORY OF 03/2016 colon resection REVISE MEDIAN N/CARPAL TUNNEL SURG Bilateral 06/12/2020 Bilateral carpal tunnel release RPR 1ST INGUN HRNA AGE 4 YRS/> REDUCIBLE Hernia repair, inguinal w/ mesh - right TONSILLECTOMY PRIMARY/SECONDARY <AGE 11 Tonsillectomy ALLERGIES Iv Contrast [Iodine], Lipitor [Atorvastatin Calcium], Lovastatin, and Nmyzbag-Jfp-Qct Reductase Inhibitors MEDICATIONS Current Outpatient Medications Medication Sig amLODIPine (NORVASC) 2.5 mg tablet Take 1 tablet by mouth once daily. Per Dr. Dietz omeprazole (PRILOSEC) 20 mg capsule Take 1 capsule by mouth once daily. losartan (COZAAR) 100 mg tablet Take 1 tablet by mouth once daily. sildenafil (VIAGRA) 50 mg tablet Take 1 tablet by mouth as needed. rosuvastatin (CRESTOR) 40 mg tablet Take 1 tablet by mouth daily at bedtime. metoprolol tartrate, short acting, (LOPRESSOR) 50 mg tablet Take 1 tablet by mouth two times a day. apixaban (ELIQUIS) 5 mg tab(s) Take 1 tablet by mouth twice daily. acetaminophen (TYLENOL ORAL) Take by mouth as needed. aspirin 81 mg chewable tablet Take 1 tablet by mouth once daily. therapeutic multivitamin (THERA VITAMIN) tablet Take 1 tablet by mouth daily with breakfast. albuterol HFA (PROVENTIL HFA, VENTOLIN HFA) 90 mcg/actuation inhaler Inhale 2 Puffs as instructed every 6 hours as needed for wheezing/shortness of breath. No current facility-administered medications for this visit. FAMILY HISTORY Problem Relation Age of Onset Heart Mother from CVA at age 75, CABG Hypertension Father Prostate Cancer Brother Coronary Artery Disease Brother stents other (pancreatic cancer) Sister Coronary Artery Disease Sister Coronary Artery Disease Sister Cancer Maternal Grandmother Parkinson s Disease Maternal Grandfather Cancer Paternal Grandfather Social History Tobacco Use Smoking status: Former Types: Cigarettes Quit date: 06/18/1987 Years since quittin.3 Smokeless tobacco: Never Tobacco comments: quit smoking 1987 Vaping Use Vaping Use: Never used Substance Use Topics Alcohol use: Yes Comment: 1glass of wine a day Drug use: No REVIEW OF SYSTEMS GENERAL: + Purposeful weight loss, malaise or fevers/chills since discharge but did have night sweats HEENT: Negative for frequent or significant headaches, Some gradual changes in hearing or vision. NECK: Negative for lumps, goiter, pain and significant neck swelling RESPIRATORY: Slight cough, hemoptysis, slight seasonal wheezing, no dyspnea or shortness of breath CARDIOVASCULAR: Negative for chest pain, right leg swelling 2-3+ pedal, orthopnea, or palpitations GI: No further nausea, vomiting when he first went to ER, or diarrhea/constipation. No hematochezia/melena. No heartburn or reflux symptoms. : A little history of dysuria, frequency- had lithotripsy, no incontinence MUSCULOSKELETAL: Negative for joint pain or swelling. SKIN: Negative for lesions, rash, and itching, except anterior lower leg & lateral ankle excoriated and pealing ENDOCRINE: Negative for cold or heat intolerance, polyuria, polydipsia and goiter NEURO: No history of headaches, syncope, paralysis, seizures or tremors MOOD: Negative for depression, anxiety, or suicidal ideation. EXAM: BP 130/58 Pulse 71 Temp 36.4 C (97.6 F) Wt 97.5 kg (215 lb) SpO2 97% BMI 34.70 kg/m PHYSICAL EXAM: Physical Exam Vitals reviewed. Constitutional: Appearance: Normal appearance. HENT: Head: Normocephalic. Cardiovascular: Rate and Rhythm: Normal rate and regular rhythm. Pulses: Normal pulses. Heart sounds: Normal heart sounds. Pulmonary: Effort: Pulmonary effort is normal. Breath sounds: Normal breath sounds. Abdominal: Palpations: Abdomen is soft. Musculoskeletal: General: Swelling and deformity present. Skin: General: Skin is warm and dry. Neurological: Mental Status: He is alert. LABS: none needed ASSESSMENT/PLAN: 1. Cellulitis of skin - ICD9: 682.9, ICD10: L03.90 - Begin treatment with Azithromycin - Labs at next appt. - Compression - Add furosemide 20 mg daily for 1 week - Follow up in 1 week Discussed treatment plan and patient voices understanding. Patient's questions answered appropriately. Medications and potential side effects were discussed and patient voices understanding. Return to the office as scheduled or as needed for worsening/no improvement. Elaina Amezcua APRN.CNP documented in this encounter [place] 10-19-2023 Note HNO ID: [id number] Author: CHE VERDIN RN Service: ? Author Type: Registered Nurse Type: Progress Notes Filed: 10/19/2023 14:00 Note Text: Transitional Care Management (TCM) Follow-Up Note Patient Source: [id number]-[id number] (OON) Discharge Patient discharged from [facility] Hospital Discharge date: 10/11/23 Admitted for: Cellultis right LE Readmission Risk: N/A KUNAL Score: N/A Value-Based Contract: ACO Contact: Contact made with patient: Yes Spoke to: Patient Validation: Validated the person spoken to is actively involved in the patient's care. The patient was identified by Name and Date of . I'd like to get an update on how you're doing since our last phone call. Is now a good time to talk? Yes Symptoms: Are you feeling about the same, better or worse since leaving the hospital? Better Weekly Outreach: 2nd Outreach Medications: Do you have any questions about taking your medications, including which medications you should be on, or do you need refills on your medications? No Patient Questions / Concerns: Do you have any questions related to your discharge instructions? No Equipment: Do you have all the necessary equipment and supplies needed at your home? No Patient has questions or needs related to the discharge instructions and/or having the necessary equipment and supplies at home. No Appointment / TCM Follow-Up: Have you had a follow-up visit with your Primary Care Provider or Specialist since you were discharged? No fu tomorrow Do you need any assistance with scheduling or changing your follow-up appointments? Patient already has an appointment scheduled SDOH: Has Food and Housing been addressed in Social Determinants in the past 3 months? Yes Education: Patient and family educated on issues/questions related to reason for admission, transition of care topics, and follow-up needed upon discharge. Discussed with pt ongoing swelling in the right lower extremity , he continue to elevate , denies any issues with drainage , fevers or increased redness. States also having less pain in general . Has f/u tomorrow. Pt also mentioned a new issue of voice hoarseness since discharge , does not have a cough or any congestion. Will also discuss at f/u tomorrow. Targets addressed / completed during outreach: Patient has TCM appointment with PC within 14 days Outreach Outcome: Continue TCM Outreach for remainder of 30 days Care Management partners utilized: N/A Che Verdin RN October 19, 2023 1:53 PM [facility] 10-19-2023 History of Present illness Narrative Transitional Care Management (TCM) Follow-Up Note Patient Source: Jpi-li-Kgpnrsv (OON) Discharge Patient discharged from [facility] Discharge date: 10/11/23 Admitted for: Cellultis right LE Readmission Risk: N/A KUNAL Score: N/A Value-Based Contract: ACO Contact: Contact made with patient: Yes Spoke to: Patient Validation: Validated the person spoken to is actively involved in the patient's care. The patient was identified by Name and Date of . I'd like to get an update on how you're doing since our last phone call. Is now a good time to talk? Yes Symptoms: Are you feeling about the same, better or worse since leaving the hospital? Better Weekly Outreach: 2nd Outreach Medications: Do you have any questions about taking your medications, including which medications you should be on, or do you need refills on your medications? No Patient Questions / Concerns: Do you have any questions related to your discharge instructions? No Equipment: Do you have all the necessary equipment and supplies needed at your home? No Patient has questions or needs related to the discharge instructions and/or having the necessary equipment and supplies at home. No Appointment / TCM Follow-Up: Have you had a follow-up visit with your Primary Care Provider or Specialist since you were discharged? No fu tomorrow Do you need any assistance with scheduling or changing your follow-up appointments? Patient already has an appointment scheduled SDOH: Has Food and Housing been addressed in Social Determinants in the past 3 months? Yes Education: Patient and family educated on issues/questions related to reason for admission, transition of care topics, and follow-up needed upon discharge. Discussed with pt ongoing swelling in the right lower extremity , he continue to elevate , denies any issues with drainage , fevers or increased redness. States also having less pain in general . Has f/u tomorrow. Pt also mentioned a new issue of voice hoarseness since discharge , does not have a cough or any congestion. Will also discuss at f/u tomorrow. Targets addressed / completed during outreach: Patient has TCM appointment with PC within 14 days Outreach Outcome: Continue TCM Outreach for remainder of 30 days Care Management partners utilized: N/A Che Verdin RN October 19, 2023 1:53 PM documented in this encounter [place] 10-19-2023 Note Patient Outreach ([facility] ---- CURTIS GUERRIER ([id number]) 1950 M Date Time Provider Department 10/19/23 [facility] During your visit today, we recorded the following information about you: Che Verdin RN 10/19/2023 2:00 PM Signed Transitional Care Management (TCM) Follow-Up Note Patient Source: Nmw-[id number]-Bybosny (OON) Discharge Patient discharged from [facility] Hospital Discharge date: 10/11/23 Admitted for: Cellultis right LE Readmission Risk: N/A KUNAL Score: N/A Value-Based Contract: ACO Contact: Contact made with patient: Yes Spoke to: Patient Validation: Validated the person spoken to is actively involved in the patient's care. The patient was identified by Name and Date of . I'd like to get an update on how you're doing since our last phone call. Is now a good time to talk? Yes Symptoms: Are you feeling about the same, better or worse since leaving the hospital? Better Weekly Outreach: 2nd Outreach Medications: Do you have any questions about taking your medications, including which medications you should be on, or do you need refills on your medications? No Patient Questions / Concerns: Do you have any questions related to your discharge instructions? No Equipment: Do you have all the necessary equipment and supplies needed at your home? No Patient has questions or needs related to the discharge instructions and/or having the necessary equipment and supplies at home. No Appointment / TCM Follow-Up: Have you had a follow-up visit with your Primary Care Provider or Specialist since you were discharged? No fu tomorrow Do you need any assistance with scheduling or changing your follow-up appointments? Patient already has an appointment scheduled SDOH: Has Food and Housing been addressed in Social Determinants in the past 3 months? Yes Education: Patient and family educated on issues/questions related to reason for admission, transition of care topics, and follow-up needed upon discharge. Discussed with pt ongoing swelling in the right lower extremity , he continue to elevate , denies any issues with drainage , fevers or increased redness. States also having less pain in general . Has f/u tomorrow. Pt also mentioned a new issue of voice hoarseness since discharge , does not have a cough or any congestion. Will also discuss at f/u tomorrow. Targets addressed / completed during outreach: Patient has TCM appointment with PC within 14 days Outreach Outcome: Continue TCM Outreach for remainder of 30 days Care Management partners utilized: N/A Che Verdin RN October 19, 2023 1:53 PM Allergies As of Date: 10/19/2023 Noted Allergy Reaction IV CONTRAST (IODINE) 06/04/2019 18 - Angioedema Comments: IV contrast 06/01/2019 LIPITOR (ATORVASTATIN CALCIUM) 03/06/2007 Comments: myalgia LOVASTATIN 03/06/2007 Comments: myalgia JUURFPJ-CLU-PLE REDUCTASE INHIBIT*04/05/2011 14 - Other: See Comments 17 - Myalgia Comments: sore joints and muscles Date Reviewed: 10/17/2023 Reviewed by: Yasemin Amaya MA - Fully Assessed Reason for Visit: Transition Of Care [4074] Cmt: TCM / OON follow up Prescriptions as of 10/19/2023 - amLODIPine (NORVASC) 2.5 mg tablet Take 1 tablet by mouth once daily. Per Dr. Dietz - omeprazole (PRILOSEC) 20 mg capsule Take 1 capsule by mouth once daily. - losartan (COZAAR) 100 mg tablet Take 1 tablet by mouth once daily. - sildenafil (VIAGRA) 50 mg tablet Take 1 tablet by mouth as needed. - rosuvastatin (CRESTOR) 40 mg tablet Take 1 tablet by mouth daily at bedtime. - metoprolol tartrate, short acting, (LOPRESSOR) 50 mg tablet Take 1 tablet by mouth two times a day. - albuterol HFA (PROVENTIL HFA, VENTOLIN HFA) 90 mcg/actuation inhaler Inhale 2 Puffs as instructed every 6 hours as needed for wheezing/shortness of breath. - apixaban (ELIQUIS) 5 mg tab(s) Take 1 tablet by mouth twice daily. - acetaminophen (TYLENOL ORAL) Take by mouth as needed. - aspirin 81 mg chewable tablet Take 1 tablet by mouth once daily. - therapeutic multivitamin (THERA VITAMIN) tablet Take 1 tablet by mouth daily with breakfast. Meds Comments as of 11/08/2014: Advil as needed. Heather Odonnell Ma Problem List As Of Date 10/19/2023 Noted Resolved Essential hypertension, benign [I10] Sciatica [M54.30] 03/06/2007 12/04/2015 Anal fissure [K60.2] 11/04/2008 12/04/2015 Hearing loss [H91.90] 01/12/2010 Hematuria [R31.9] 05/23/2012 12/04/2015 Urinary frequency [R35.0] 05/23/2012 07/18/2018 Hypercalciuria [R82.994] 06/26/2012 Hyperlipidemia with target LDL less than 100 [E*04/17/2013 History of kidney stones [Z87.442] 06/18/2013 Elevated PSA [R97.20] 06/18/2013 11/11/2021 BPH (benign prostatic hypertrophy) with urinary*10/10/2013 Diverticulitis of colon [K57.32] 05/20/2014 07/18/2018 GERD (gastroesopha (more content not included)... [facility] 10-17-2023 History of Present illness Narrative ESTABLISHED PATIENT VISIT HPI Curtis Guerrier is a 73 year old male who presents post op ESWL Right ESWL 09/15/23 Follow up KUB 10/13/23 negative Serum calcium normal Recent RLE cellulitis IV abx , inpatient Creatinine Date Value Ref Range Status 09/26/2023 0.86 0.73 - 1.22 mg/dL Final PSA (ng/mL) Date Value 05/22/2019 1.42 08/22/2018 1.33 09/29/2017 1.48 09/29/2016 1.47 06/17/2015 2.14 07/09/2014 1.50 08/08/2013 1.67 06/18/2013 7.78 12/18/2012 2.71 04/19/2012 2.51 PSA Screening (ng/mL) Date Value 09/26/2023 1.41 11/09/2022 1.29 11/12/2021 1.26 10/11/2020 1.12 Color (no units) Date Value 07/18/2018 Yellow Clarity (no units) Date Value 07/18/2018 Clear Glucose, Urine (mg/dL) Date Value 07/18/2018 Negative Bilirubin, Urine (no units) Date Value 07/18/2018 Negative Ketones, Urine (no units) Date Value 07/18/2018 Negative Specific [place], Ur (no units) Date Value 07/18/2018 1.019 Hemoglobin/Blood,Ur ( ) Date Value 07/18/2018 Negative pH, Urine (no units) Date Value 07/18/2018 6.0 Protein, Urine (mg/dL) Date Value 07/18/2018 Negative Urobilinogen (no units) Date Value 07/18/2018 Normal Nitrites (no units) Date Value 07/18/2018 Negative Leukest (no units) Date Value 07/18/2018 2+ 24HR Urine Studies: No results for input(s): LUPH, LUCAL, LUCIT, LUOXA, LUURIC, LUVOL, LSCAO, LSCAP, LSURIC, LUCL, DUNIA, JASON, LUUREA, LUAM, LUMAG, LUPHOS, LUPCR, LUCREA, LUCRKBW, LUCAKBW, LUCACREA, LUCREACL, LWK, LUSUL in the last [id number] hours. REVIEW OF SYSTEMS Review of Systems Review of system, history including past medical history, surgical history, family history and social history reviewed and confirmed by me. HISTORIES PAST MEDICAL HISTORY Diagnosis Date Acute deep vein thrombosis (DVT) of right lower extremity (HCC) 09/27/2017 Arthritis BPH (benign prostatic hypertrophy) with urinary obstruction 10/10/2013 Calculus of kidney Coronary artery disease 2016 Stent 1 Diverticulitis Essential hypertension, benign GERD (gastroesophageal reflux disease) History of coronary artery stent placement 2016 Hypercalciuria 06/26/2012 Hypercholesterolemia Hyperlipidemia LDL goal < 100 04/17/2013 Other and unspecified hyperlipidemia Prostatic hypertrophy 2016 benign with outflow obstruction S/P CABG x 4 05/04/2017 [employer] workers comp claim Severe obesity with body mass index (BMI) of 35.0 to 35.9 and comorbidity (HCC) Snoring no JONAH Squamous cell skin cancer 05/13/2021 Stroke ([facility] patient denies diagnosis of stroke. Reports history of possible TIA PAST SURGICAL HISTORY Procedure Laterality Date BACK SURGERY HX CABG (4) VEIN GRAFTS & ARTERIAL GRAFT(S) 10/2016 COLON SURGERY HX COLONOSCOPY 05/28/2014 Diverticular disease- repeat in 2024 COLONOSCOPY FLX DX W/COLLJ SPEC WHEN PFRMD 02/12/2002 Colonoscopy-repeat in -2011 COLONOSCOPY FLX DX W/COLLJ SPEC WHEN PFRMD 04/26/2017 Colonoscopy ESOPHAGOGASTRODUODENOSCOPY TRANSORAL DIAGNOSTIC 04/26/2017 EGD EYE SURGERY HX FISSURECTOMY INCL SPHINCTEROTOMY WHEN PERFORMED HEART SURGERY HX HERNIA REPAIR HX LAPS COLECTOMY PRTL W/COLOPXTSTMY LW ANAST 04/14/2016 with mobilization of splenic flexure for diverticulitis PAST SURGICAL HISTORY OF 1982 lower back herniated disc PAST SURGICAL HISTORY OF 2005 low back surgery PAST SURGICAL HISTORY OF 04/04/2015 cardiac stent insertion PAST SURGICAL HISTORY OF 03/2016 colon resection REVISE MEDIAN N/CARPAL TUNNEL SURG Bilateral 06/12/2020 Bilateral carpal tunnel release RPR 1ST INGUN HRNA AGE 4 YRS/> REDUCIBLE Hernia repair, inguinal w/ mesh - right TONSILLECTOMY PRIMARY/SECONDARY <AGE 12 Tonsillectomy FAMILY HISTORY Problem Relation Age of Onset Heart Mother from CVA at age 75, CABG Hypertension Father Prostate Cancer Brother Coronary Artery Disease Brother stents other (pancreatic cancer) Sister Coronary Artery Disease Sister Coronary Artery Disease Sister Cancer Maternal Grandmother Parkinson s Disease Maternal Grandfather Cancer Paternal Grandfather SOCIAL HISTORY Social History Tobacco Use Smoking status: Former Types: Cigarettes Quit date: 06/18/1987 Years since quittin.3 Smokeless tobacco: Never Tobacco comments: quit smoking 1987 Vaping Use Vaping Use: Never used Substance Use Topics Alcohol use: Yes Comment: 1glass of wine a day Drug use: No MEDICATIONS: amLODIPine (NORVASC) 2.5 mg tablet Take 1 tablet by mouth once daily. Per Dr. Dietz tamsulosin (FLOMAX) 0.4 mg Take 1 capsule by mouth daily at bedtime. Patient should start on September 05, 2023. omeprazole (PRILOSEC) 20 mg capsule Take 1 capsule by mouth once daily. losartan (COZAAR) 100 mg tablet Take 1 tablet by mouth once daily. sildenafil (VIAGRA) 50 mg tablet Take 1 tablet by mouth as needed. rosuvastatin (CRESTOR) 40 mg tablet Take 1 tablet by mouth daily at bedtime. metoprolol tartrate, short acting, (LOPRESSOR) 50 mg tablet Take 1 tablet by mouth two times a day. apixaban (ELIQUIS) 5 mg tab(s) Take 1 tablet by mouth twice daily. acetaminophen (TYLENOL ORAL) Take by mouth as needed. aspirin 81 mg chewable tablet Take 1 tablet by mouth once daily. therapeutic multivitamin (THERA VITAMIN) tablet Take 1 tablet by mouth daily with breakfast. albuterol HFA (PROVENTIL HFA, VENTOLIN HFA) 90 mcg/actuation inhaler Inhale 2 Puffs as instructed every 6 hours as needed for wheezing/shortness of breath. PHYSICAL EXAMINATION General appearance: Well appearing, alert, in no acute distress, and well-hydrated, well nourished Reviewed CT and KUB No remaining stones ASSESSMENT/PLAN: 1. Flank pain - ICD9: 789.09, ICD10: R10.9 (primary diagnosis) 2. Kidney stone on right side - ICD9: 592.0, ICD10: N20.0 24 hr urine Drinks one brewed black tea a day He will do 24 hr urine without modifying and we will see if oxalate level is high Check KUB in one year PSA 09/26/23 is normal Curtis Tinoco Medical Decision Making: Medical Decision Making Level: 1 - N/A documented in this encounter [place] 10-17-2023 Note HNO ID: [id number] Author: CURTIS TINOCO MD Service: ? Author Type: Physician Type: Progress Notes Filed: 10/17/2023 13:50 Note Text: ESTABLISHED PATIENT VISIT HPI Curtis Guerrier is a 73 year old male who presents post op ESWL Right ESWL 09/15/23 Follow up KUB 10/13/23 negative Serum calcium normal Recent RLE cellulitis IV abx , inpatient Creatinine Date Value Ref Range Status 09/26/2023 0.86 0.73 - 1.22 mg/dL Final PSA (ng/mL) Date Value 05/22/2019 1.42 08/22/2018 1.33 09/29/2017 1.48 09/29/2016 1.47 06/17/2015 2.14 07/09/2014 1.50 08/08/2013 1.67 06/18/2013 7.78 12/18/2012 2.71 04/19/2012 2.51 PSA Screening (ng/mL) Date Value 09/26/2023 1.41 11/09/2022 1.29 11/12/2021 1.26 10/11/2020 1.12 Color (no units) Date Value 07/18/2018 Yellow Clarity (no units) Date Value 07/18/2018 Clear Glucose, Urine (mg/dL) Date Value 07/18/2018 Negative Bilirubin, Urine (no units) Date Value 07/18/2018 Negative Ketones, Urine (no units) Date Value 07/18/2018 Negative Specific [place], Ur (no units) Date Value 07/18/2018 1.019 Hemoglobin/Blood,Ur ( ) Date Value 07/18/2018 Negative pH, Urine (no units) Date Value 07/18/2018 6.0 Protein, Urine (mg/dL) Date Value 07/18/2018 Negative Urobilinogen (no units) Date Value 07/18/2018 Normal Nitrites (no units) Date Value 07/18/2018 Negative Leukest (no units) Date Value 07/18/2018 2+ 24HR Urine Studies: No results for input(s): JACK, LUCAL, LUCIT, LUOXA, LUURIC, LUVOL, LSCAO, LSCAP, LSURIC, LUCL, DUNIA, JASON, LUUREA, LUAM, LUMAG, LUPHOS, LUPCR, LUCREA, LUCRKBW, LUCAKBW, LUCACREA, LUCREACL, LWK, LUSUL in the last [id number] hours. REVIEW OF SYSTEMS Review of Systems Review of system, history including past medical history, surgical history, family history and social history reviewed and confirmed by me. HISTORIES PAST MEDICAL HISTORY Diagnosis Date Acute deep vein thrombosis (DVT) of right lower extremity (HCC) 09/27/2017 Arthritis BPH (benign prostatic hypertrophy) with urinary obstruction 10/10/2013 Calculus of kidney Coronary artery disease 2016 Stent ?1 Diverticulitis Essential hypertension, benign GERD (gastroesophageal reflux disease) History of coronary artery stent placement 2016 Hypercalciuria 06/26/2012 Hypercholesterolemia Hyperlipidemia LDL goal < 100 04/17/2013 Other and unspecified hyperlipidemia Prostatic hypertrophy 2016 benign with outflow obstruction S/P CABG x 4 05/04/2017 [employer] workers comp claim Severe obesity with body mass index (BMI) of 35.0 to 35.9 and comorbidity (HCC) Snoring no JONAH Squamous cell skin cancer 05/13/2021 Stroke ([facility] patient denies diagnosis of stroke. Reports history of possible TIA PAST SURGICAL HISTORY Procedure Laterality Date BACK SURGERY HX CABG (4) VEIN GRAFTS AND ARTERIAL GRAFT(S) 10/2016 COLON SURGERY HX COLONOSCOPY 05/28/2014 Diverticular disease- repeat in 2024 COLONOSCOPY FLX DX W/COLLJ SPEC WHEN PFRMD 02/12/2002 Colonoscopy-repeat in COLONOSCOPY FLX DX W/COLLJ SPEC WHEN PFRMD 04/26/2017 Colonoscopy ESOPHAGOGASTRODUODENOSCOPY TRANSORAL DIAGNOSTIC 04/26/2017 EGD EYE SURGERY HX FISSURECTOMY INCL SPHINCTEROTOMY WHEN PERFORMED HEART SURGERY HX HERNIA REPAIR HX LAPS COLECTOMY PRTL W/COLOPXTSTMY LW ANAST 04/14/2016 with mobilization of splenic flexure for diverticulitis PAST SURGICAL HISTORY OF 1982 lower back herniated disc PAST SURGICAL HISTORY OF 2005 low back surgery PAST SURGICAL HISTORY OF 04/04/2015 cardiac stent insertion PAST SURGICAL HISTORY OF 03/2016 colon resection REVISE MEDIAN N/CARPAL TUNNEL SURG Bilateral 06/12/2020 Bilateral carpal tunnel release RPR 1ST INGUN HRNA AGE 5 YRS/> REDUCIBLE Hernia repair, inguinal w/ mesh - right TONSILLECTOMY PRIMARY/SECONDARY Tonsillectomy FAMILY HISTORY Problem Relation Age of Onset Heart Mother from CVA at age 75, CABG Hypertension Father Prostate Cancer Brother Coronary Artery Disease Brother stents other (pancreatic cancer) Sister Coronary Artery Disease Sister Coronary Artery Disease Sister Cancer Maternal Grandmother Parkinson?s Disease Maternal Grandfather Cancer Paternal Grandfather SOCIAL HISTORY Social History Tobacco Use Smoking status: Former Types: Cigarettes Quit date: 06/18/1987 Years since quittin.3 Smokeless tobacco: Never Tobacco comments: quit smoking 1987 Vaping Use Vaping Use: Never used Substance Use Topics Alcohol use: Yes Comment: 1glass of wine a day Drug use: No MEDICATIONS: amLODIPine (NORVASC) 2.5 mg tablet Take 1 tablet by mouth once daily. Per Dr. Dietz tamsulosin (FLOMAX) 0.4 mg Take 1 capsule by mouth daily at bedtime. Patient should start on September 05, 2023. omeprazole (PRILOSEC) 20 mg capsule Take 1 capsule by mouth once daily. los (more content not included)... [facility] 10-13-2023 History of Present illness Narrative Radiology Service Progress Note PATIENT NAME: Curtis Guerrier DATE OF SERVICE: October 13, 2023 TIME: 2:11 PM PATIENT IDENTITY VERIFICATION COMPLETED USING TWO (2) IDENTIFIERS: Name and Date of confirmed by patient verbally. FALL SCREENING: Has the patient had 2 falls in the last year or 1 fall with injury or currently using an Ambulatory Assistive Device (Walker, Cane, Wheelchair, Crutches, etc.)? No PATIENT GENDER DATA: Male PATIENT RELEVANT IMPLANT DATA REVIEWED: Not Applicable PATIENT PRESENTS WITH AN IMPLANTABLE OR ATTACHED PAYROLL ACCOUNTING MANAGER: No RADIOLOGY DEPARTMENT: General X-ray: Exam(s) Completed: Abdomen X-Ray: Abdomen PERIPHERAL IV DATA: Not applicable SIGNED BY: RT Ghassan(R) October 13, 2023 2:11 PM documented in this encounter [place] 10-13-2023 Note HNO ID: [id number] Author: ALBINO SAM RT(R) Service: ? Author Type: Technologist Type: Progress Notes Filed: 10/13/2023 14:12 Note Text: Radiology Service Progress Note PATIENT NAME: Curtis Guerrier DATE OF SERVICE: October 13, 2023 TIME: 2:11 PM PATIENT IDENTITY VERIFICATION COMPLETED USING TWO (2) IDENTIFIERS: Name and Date of confirmed by patient verbally. FALL SCREENING: Has the patient had 2 falls in the last year or 1 fall with injury or currently using an Ambulatory Assistive Device (Walker, Cane, Wheelchair, Crutches, etc.)? No PATIENT GENDER DATA: Male PATIENT RELEVANT IMPLANT DATA REVIEWED: Not Applicable PATIENT PRESENTS WITH AN IMPLANTABLE OR ATTACHED PAYROLL ACCOUNTING MANAGER: No RADIOLOGY DEPARTMENT: General X-ray: Exam(s) Completed: Abdomen X-Ray: Abdomen PERIPHERAL IV DATA: Not applicable SIGNED BY: RT Ghassan(R) October 13, 2023 2:11 PM [facility] 10-12-2023 Note HNO ID: [id number] Author: CHE VERDIN RN Service: ? Author Type: Registered Nurse Type: Progress Notes Filed: 10/12/2023 09:56 Note Text: TRANSITIONAL CARE MANAGEMENT (TCM) COMMUNITY MONITORING PROGRAM Provider Action/FYI: Pt reports last weekend he developed redness and chills in his legs which continued to worsen . States was admitted to [facility] - given IV atb's. Dc'd home with Amoxicillan 500mg TID and Doxycycline 100mg BID rx. Denies any worsening redness, drainage , tenderness or fevers. Encouraged to contact PCP' s office with any worsening symptoms or concerns. Pt states he will elevate the right leg for the next few days. 10[facility] SUMMARY: Discharge Network Status: Xfx-tm-Eztmbnk (OON) Discharge Pt discharged from [facility] on 10/11/23. Admitted for: Cellulitis Right LE TCM Home Visit Referral Source of Stratification: TCM [facility] Hospital Admission Status: Discharged Readmission Risk Score: N/A Patient's zip code: N/A Is zip code within program service area: No Patient meets program referral criteria: No Patient does not qualify for High Risk TCM Home Visit program due to: Readmission Risk Score does not meet criteria Disposition: Patient does not qualify for HRTIC, will provide TCM outreach follow-up for 30-days Che Verdin RN October 12, 2023 9:42 AM Contact made with patient: Yes Hi my name is Che Verdin RN and I am calling from the [place] on behalf of your PCP, Jason Cook MD I understand you were recently in the hospital so I am calling to check in with you to ensure you are feeling well now that you're home. May I ask you a few questions related to your hospital stay and well-being? Yes Contact with patient post discharge, spoke to patient. Patient identified by name and . Do you feel your health is BETTER, WORSE, or the SAME since leaving the hospital? Better ACTION TAKEN: Patient indicated symptoms are better or same, no action required. Continue outreach. MEDICATIONS: Many patients have questions or concerns about their medications once they are home. Do you have any questions about taking your medications or which medication you should be on? No Do you need any medication refills at this time, including any of the medications you might take only when needed? No ACTION TAKEN: No action required For RNs or Pharmacy completing outreach ONLY, was a medication review completed? Yes Partial review of new rx 's and BP meds , pt also maintains eliquis and ASA . SOCIAL: We would like to make sure you have what you need so that your basics needs are met - including your personal safety, food, housing and medications. Would you like to speak with a social work meat service team member to help give you support for any of these needs? No It can be normal to feel anxious or down during a time like this. Would you like to talk to a mental health professional about how you have been feeling? No ACTION TAKEN: No action taken DISCHARGE INTRUCTIONS: Your discharge instructions / After Visit Summary (AVS) are important in guiding you through the recovery process. Do you have any questions related to your discharge instructions? No Do you have all the necessary equipment and supplies at home? Yes ACTION TAKEN: No action required I would like to help you schedule a hospital follow-up virtual or telephone visit with your PCP. This is a great way for you to connect with your provider to ensure you have safely transitioned home. If you are agreeable, I will send your request to a manufacturing scheduler who will contact and assist you with that appointment. This will give you an opportunity to ask any questions or address any concerns you may have with your PCP. Inform the patient that if they have any questions or concerns prior to that appointment, to call their PCP's office right away. ACTION TAKEN: No action required, patient already has an appointment scheduled. Your doctor would like us to remind you of the recommendations regarding the coronavirus (Covid19) outbreak: Avoid public places as much as possible. Avoid close contact (within 6 feet) with others you don?t live with, especially if they are sick. Stay home if you are sick. Wash your hands regularly for at least 20 seconds with soap and water. Wear a cloth mask in public places to help reduce community spread. Do not go to your Doctor?s office unless instructed to do so. For any non-emergency symptoms, call your Doctor?s office to get instructions on how to manage (we might recommend a telephone or virtual visit). For emergency symptoms, proceed to Emergency Department as usual but inform them of cough and fever symptoms CANDELARIO if present (or call on the way if possible). KIARA Education Ordered -: No Che Verdin RN October 12, 2023 9:48 AM [facility] 10-12-2023 History of Present illness Narrative TRANSITIONAL CARE MANAGEMENT (TCM) COMMUNITY MONITORING PROGRAM Provider Action/FYI: Pt reports last weekend he developed redness and chills in his legs which continued to worsen . States was admitted to [facility] - given IV atb's. Dc'd home with Amoxicillan 500mg TID and Doxycycline 100mg BID rx. Denies any worsening redness, drainage , tenderness or fevers. Encouraged to contact PCP' s office with any worsening symptoms or concerns. Pt states he will elevate the right leg for the next few days. 10/[facility] f[facility] SUMMARY: Discharge Network Status: Vfz-ra-Wktrvxx (OON) Discharge Pt discharged from [facility] on 10/11/23. Admitted for: Cellulitis Right LE TCM Home Visit Referral Source of Stratification: [facility] Hospital Admission Status: Discharged Readmission Risk Score: N/A Patient's zip code: N/A Is zip code within program service area: No Patient meets program referral criteria: No Patient does not qualify for High Risk TCM Home Visit program due to: Readmission Risk Score does not meet criteria Disposition: Patient does not qualify for HRTIC, will provide TCM outreach follow-up for 30-days Che Verdin RN October 12, 2023 9:42 AM Contact made with patient: Yes Hi my name is Che Verdin RN and I am calling from the [place] on behalf of your PCP, Jason Cook MD I understand you were recently in the hospital so I am calling to check in with you to ensure you are feeling well now that you're home. May I ask you a few questions related to your hospital stay and well-being? Yes Contact with patient post discharge, spoke to patient. Patient identified by name and . Do you feel your health is BETTER, WORSE, or the SAME since leaving the hospital? Better ACTION TAKEN: Patient indicated symptoms are better or same, no action required. Continue outreach. MEDICATIONS: Many patients have questions or concerns about their medications once they are home. Do you have any questions about taking your medications or which medication you should be on? No Do you need any medication refills at this time, including any of the medications you might take only when needed? No ACTION TAKEN: No action required For RNs or Pharmacy completing outreach ONLY, was a medication review completed? Yes Partial review of new rx 's and BP meds , pt also maintains eliquis and ASA . SOCIAL: We would like to make sure you have what you need so that your basics needs are met - including your personal safety, food, housing and medications. Would you like to speak with a social work meat service team member to help give you support for any of these needs? No It can be normal to feel anxious or down during a time like this. Would you like to talk to a mental health professional about how you have been feeling? No ACTION TAKEN: No action taken DISCHARGE INTRUCTIONS: Your discharge instructions / After Visit Summary (AVS) are important in guiding you through the recovery process. Do you have any questions related to your discharge instructions? No Do you have all the necessary equipment and supplies at home? Yes ACTION TAKEN: No action required I would like to help you schedule a hospital follow-up virtual or telephone visit with your PCP. This is a great way for you to connect with your provider to ensure you have safely transitioned home. If you are agreeable, I will send your request to a manufacturing scheduler who will contact and assist you with that appointment. This will give you an opportunity to ask any questions or address any concerns you may have with your PCP. Inform the patient that if they have any questions or concerns prior to that appointment, to call their PCP's office right away. ACTION TAKEN: No action required, patient already has an appointment scheduled. Your doctor would like us to remind you of the recommendations regarding the coronavirus (Covid19) outbreak: Avoid public places as much as possible. Avoid close contact (within 6 feet) with others you don t live with, especially if they are sick. Stay home if you are sick. Wash your hands regularly for at least 20 seconds with soap and water. Wear a cloth mask in public places to help reduce community spread. Do not go to your Doctor s office unless instructed to do so. For any non-emergency symptoms, call your Doctor s office to get instructions on how to manage (we might recommend a telephone or virtual visit). For emergency symptoms, proceed to Emergency Department as usual but inform them of cough and fever symptoms CANDELARIO if present (or call on the way if possible). KIARA Education Ordered -: No Che Verdin RN October 12, 2023 9:48 AM documented in this encounter [place] 10-12-2023 Note Patient Outreach (AM [facility]CM[facility]) ---- CURTIS GUERRIER ([id number]) 1950 M Date Time Provider Department 10/12/23 CHE VERDIN [facility] [place] During your visit today, we recorded the following information about you: Che Verdin RN 10/12/2023 9:56 AM Signed TRANSITIONAL CARE MANAGEMENT (TCM) COMMUNITY MONITORING PROGRAM Provider Action/FYI: Pt reports last weekend he developed redness and chills in his legs which continued to worsen . States was admitted to [facility] - given IV atb's. Dc'd home with Amoxicillan 500mg TID and Doxycycline 100mg BID rx. Denies any worsening redness, drainage , tenderness or fevers. Encouraged to contact PCP' s office with any worsening symptoms or concerns. Pt states he will elevate the right leg for the next few days. 10/19 [facility] f/u SUMMARY: Discharge Network Status: Njr-tb-Fhyjeox (OON) Discharge Pt discharged from [facility] on 10/11/23. Admitted for: Cellulitis Right LE TCM Home Visit Referral Source of Stratification: TCM [facility] Hospital Admission Status: Discharged Readmission Risk Score: N/A Patient's zip code: N/A Is zip code within program service area: No Patient meets program referral criteria: No Patient does not qualify for High Risk TCM Home Visit program due to: Readmission Risk Score does not meet criteria Disposition: Patient does not qualify for HRTIC, will provide TCM outreach follow-up for 30-days Che Verdin RN October 12, 2023 9:42 AM Contact made with patient: Yes Hi my name is Che Verdin RN and I am calling from the [place] on behalf of your PCP, Jason Cook MD I understand you were recently in the hospital so I am calling to check in with you to ensure you are feeling well now that you're home. May I ask you a few questions related to your hospital stay and well-being? Yes Contact with patient post discharge, spoke to patient. Patient identified by name and . Do you feel your health is BETTER, WORSE, or the SAME since leaving the hospital? Better ACTION TAKEN: Patient indicated symptoms are better or same, no action required. Continue outreach. MEDICATIONS: Many patients have questions or concerns about their medications once they are home. Do you have any questions about taking your medications or which medication you should be on? No Do you need any medication refills at this time, including any of the medications you might take only when needed? No ACTION TAKEN: No action required For RNs or Pharmacy completing outreach ONLY, was a medication review completed? Yes Partial review of new rx 's and BP meds , pt also maintains eliquis and ASA . SOCIAL: We would like to make sure you have what you need so that your basics needs are met - including your personal safety, food, housing and medications. Would you like to speak with a social work meat service team member to help give you support for any of these needs? No It can be normal to feel anxious or down during a time like this. Would you like to talk to a mental health professional about how you have been feeling? No ACTION TAKEN: No action taken DISCHARGE INTRUCTIONS: Your discharge instructions / After Visit Summary (AVS) are important in guiding you through the recovery process. Do you have any questions related to your discharge instructions? No Do you have all the necessary equipment and supplies at home? Yes ACTION TAKEN: No action required I would like to help you schedule a hospital follow-up virtual or telephone visit with your PCP. This is a great way for you to connect with your provider to ensure you have safely transitioned home. If you are agreeable, I will send your request to a manufacturing scheduler who will contact and assist you with that appointment. This will give you an opportunity to ask any questions or address any concerns you may have with your PCP. Inform the patient that if they have any questions or concerns prior to that appointment, to call their PCP's office right away. ACTION TAKEN: No action required, patient already has an appointment scheduled. Your doctor would like us to remind you of the recommendations regarding the coronavirus (Covid19) outbreak: Avoid public places as much as possible. Avoid close contact (within 6 feet) with others you don?t live with, especially if they are sick. Stay home if you are sick. Wash your hands regularly for at least 20 seconds with soap and water. Wear a cloth mask in public places to help reduce community spread. Do not go to your Doctor?s office unless instructed to do so. For any non-emergency symptoms, call your Doctor?s office to get instructions on how to manage (we might recommend a telephone or virtual visit). For emergency symptoms, proceed to Emergency Department as usual but inform them of cough and fever symptoms CANDELARIO if present (or wendy (more content not included)... [facility] 10-11-2023 Note [facility] Medical Records Department [address] [place] [address] Discharge Summary 10/11/23 0902 MR#: [id number] Acct: [id number] Name: CURTIS GUERRIER Rep #: [id number] : 1950 73 From: Dhaval Cantor DO PCP: Dr. Jason Cook MD Status:ADM IN Location: [facility] [id number] Providers Date of Admission: 10/09/23 Primary Care Physician: Dr. Jason Cook MD Reason For Visit: SEPSIS, CELLULITIS Diagnosis Discharge Diagnosis (1) Cellulitis of right lower extremity: Status: Acute Code(s): L03.115 - Cellulitis of right lower limb Plan Right lower extremity cellulitis * The redness began today but patient had some swelling but no overt redness yesterday. Also had a lymph node but I feel the lymph node is likely due to developing cellulitis he had. * Patient received ampicillin/sulbactam in emergency room. Will continue with that but also add vancomycin. * qSOFA score of 0. Therefore sepsis not present. * Duplex negative. * Advised patient to keep his leg elevated. * Overall, the patient is much improved. Still does have erythema and some tenderness particular when he is standing up. But with palpation, cellulitis is overall improving. Feel the patient can be discharged today to complete antibiotics.Given the severity, will discharge with amoxicillin and doxycycline. Right inguinal lymph node: * Given now we know that the patient has cellulitis is likely reactive from the underlying infection. I do not feel it is necessary to see general surgery as we have an etiology for why he had a large lymph node. Acute renal insufficiency * resolved * Creatinine went up to 1.4 with baseline creatinine of 0.9. * Likely due to dehydration. IV fluids Urinary hesitancy * Likely due to dehydration as patient's specific gravity was elevated on his urinalysis and also has BPH. Patient denied having any prostate issues but he is on tamsulosin. * No sign of infection his urinalysis. Chronic conditions * Paroxysmal atrial fibrillation: Continue with apixaban and metoprolol titrate * Hypertension: Stable. Losartan on hold given the renal insufficiency. VTE prophylaxis: Not indicated as patient is already on apixaban. CODE STATUS: Addressed with patient. Patient was to be full code. Medications at Discharge Home Medications aspirin 81 mg chewable tablet 81 mg PO DAILY@0800 unsure 03/24/14 multivitamin 1 tab PO DAILY nutrition support 09/22/17 metoprolol tartrate 50 mg tablet 50 mg PO BID BP 04/25/19 acetaminophen 325 mg capsule (Tylenol) 325 mg PO Q6H PRN Pain Or Fever 04/26/19 losartan 100 mg tablet 100 mg PO DAILY BP 04/26/19 apixaban 5 mg tablet 5 mg PO BID #180 tabs 04/27/19 albuterol sulfate 90 mcg/actuation aerosol inhaler (ProAir HFA) 2 puff inhalation Q6H PRN PRN Shortness Of Breath 11/22/20 sildenafil 50 mg tablet (Viagra) 50 mg PO DAILY PRN sexual activity 02/26/21 omeprazole 20 mg capsule,delayed release 20 mg PO .3xw GERD 12/10/21 rosuvastatin 10 mg tablet 40 mg PO QHS cholesterol 03/11/23 amlodipine 2.5 mg tablet 2.5 mg PO DAILY #90 tabs 07/04/23 hydrocodone-acetaminophen 5-325mg 5mg-325mg 1 tab PO Q6H PRN PRN Pain 3 days #10 TABLETS 10/08/23 ondansetron 4 mg disintegrating tablet 4 mg PO Q8H PRN PRN Nausea #10 tabs 10/08/23 tamsulosin 0.4 mg capsule 0.4 mg PO QHS BPH 10/08/23 amoxicillin 500 mg capsule 500 mg PO Q8H #12 caps 10/11/23 doxycycline monohydrate 100 mg tablet 100 mg PO BID #8 tabs 10/11/23 oxycodone 5 mg tablet 5 mg PO Q6H PRN pain 3 days #12 tabs 10/11/23 white petrolatum 41 % topical ointment (Aquaphor Original) 1 applic topical BID PRN dry skin #396 grams 10/11/23 Hospital Course Operations None Procedures None Summary of Care Provided Minutes Spent on Discharge: 32 Hospital Course: Patient presents with right leg swelling. Patient was seen the day prior for swelling his leg and it was noted to have a enlarged right inguinal lymph node. Patient was to follow-up with surgery to see about having that biopsy. The following day, a cellulitis then developed and patient was having fevers with a temperature of 101 Fahrenheit. Patient was started on antibiotics with ampicillin/sulbactam and vancomycin. Patient will does have erythema on his right leg but is overall improving. Patient states that when he stands that his leg gets very tender but does improve with standing for period of time. Patient has improved and will be discharged with amoxicillin and doxycycline to complete a 7-day course of antibiotics. Additionally, patient does have some skin changes that are indicative of eventual sloughing of the skin due to the cellulitis. Advised patient to use something such as Aquaphor to help with healing of what will eventually be sloughing skin on his right puri. Weight / BMI Weight Weight: 97 kg Body Mass Index (BMI) 34.4 ABG / Lab (more content not included)... [facility] 10-03-2023 Note HNO ID: [id number] Author: JOSH LYNCH MD Service: ? Author Type: Physician Type: Progress Notes Filed: 10/03/2023 14:01 Note Text: Josh Lynch MD Interventional Cardiology [address] [place], [place] [id number] Chief Complaint Patient presents with: New Patient HISTORY OF PRESENT ILLNESS: Mr. Guerrier is a 73 year old male seen in my office today to establish care in our practice patient have established history of coronary artery disease which was diagnosed in 2017 presented with exertional dyspnea nuclear stress test was abnormal underwent bypass surgery for severe three-vessel coronary artery disease his bypass surgery consisted of a ADDISON to the LAD vein graft to the PDA vein graft to the ramus and vein graft to the diagonal Patient does have exertional dyspnea which she noticed lately he is on good medical therapy history of paroxysmal atrial fibrillation on anticoagulation Cardiac Risk Factors age (male over 45, female over 55), hyperlipidemia, obesity, diabetes, hypertension, family history of CAD PAST MEDICAL HISTORY Diagnosis Date Acute deep vein thrombosis (DVT) of right lower extremity (HCC) 09/27/2017 Arthritis BPH (benign prostatic hypertrophy) with urinary obstruction 10/10/2013 Calculus of kidney Coronary artery disease 2016 Stent ?1 Diverticulitis Essential hypertension, benign GERD (gastroesophageal reflux disease) History of coronary artery stent placement 2016 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 Reports history of possible TIA PAST SURGICAL HISTORY Procedure Laterality Date BACK SURGERY HX CABG (4) VEIN GRAFTS AND ARTERIAL GRAFT(S) 10/2016 COLON SURGERY HX COLONOSCOPY 05/28/2014 Diverticular disease- repeat in 2024 COLONOSCOPY FLX DX W/COLLJ SPEC WHEN PFRMD 02/12/2002 Colonoscopy-repeat in COLONOSCOPY FLX DX W/COLLJ SPEC WHEN PFRMD 04/26/2017 Colonoscopy ESOPHAGOGASTRODUODENOSCOPY TRANSORAL DIAGNOSTIC 04/26/2017 EGD EYE SURGERY HX FISSURECTOMY INCL SPHINCTEROTOMY WHEN PERFORMED HEART SURGERY HX HERNIA REPAIR HX LAPS COLECTOMY PRTL W/COLOPXTSTMY LW ANAST 04/14/2016 with mobilization of splenic flexure for diverticulitis PAST SURGICAL HISTORY OF 1982 lower back herniated disc PAST SURGICAL HISTORY OF 2005 low back surgery PAST SURGICAL HISTORY OF 04/04/2015 cardiac stent insertion PAST SURGICAL HISTORY OF 03/2016 colon resection REVISE MEDIAN N/CARPAL TUNNEL SURG Bilateral 06/12/2020 Bilateral carpal tunnel release RPR 1ST INGUN HRNA AGE 5 YRS/> REDUCIBLE Hernia repair, inguinal w/ mesh - right TONSILLECTOMY PRIMARY/SECONDARY Tonsillectomy FAMILY HISTORY Problem Relation Age of Onset Heart Mother from CVA at age 75, CABG Hypertension Father Prostate Cancer Brother Coronary Artery Disease Brother stents other (pancreatic cancer) Sister Coronary Artery Disease Sister Coronary Artery Disease Sister Cancer Maternal Grandmother Parkinson?s Disease Maternal Grandfather Cancer Paternal Grandfather Social History Tobacco Use Smoking status: Former Types: Cigarettes Quit date: 06/18/1987 Years since quittin.3 Smokeless tobacco: Never Tobacco comments: quit smoking 1987 Vaping Use Vaping Use: Never used Substance Use Topics Alcohol use: Yes Comment: 1glass of wine a day Drug use: No ALLERGIES Allergen Reactions Iv Contrast [Iodine] Angioedema IV contrast 06/01/2019 Lipitor [Atorvastat* myalgia Lovastatin myalgia Kisibtu-Jfm-Wjg Red* Other: See Comments, Myalgia sore joints and muscles Medications: Current Outpatient Medications Medication Sig Dispense Refill tamsulosin (FLOMAX) 0.4 mg Take 1 capsule by mouth daily at bedtime. Patient should start on September 05, 2023. 30 capsule 2 omeprazole (PRILOSEC) 20 mg capsule Take 1 capsule by mouth once daily. 90 capsule 1 losartan (COZAAR) 100 mg tablet Take 1 tablet by mouth once daily. 90 tablet 3 sildenafil (VIAGRA) 50 mg tablet Take 1 tablet by mouth as needed. 30 tablet 5 rosuvastatin (CRESTOR) 40 mg tablet Take 1 tablet by mouth daily at bedtime. 90 tablet 3 metoprolol tartrate, short acting, (LOPRESSOR) 50 mg tablet Take 1 tablet by mouth two times a day. 180 tablet 3 apixaban (ELIQUIS) 5 mg tab(s) Take 1 tablet by mouth twice daily. 180 tablet 3 acetaminophen (TYLENOL ORAL) Take by mouth as needed. aspirin 81 mg chewable tablet Take 1 tablet by mouth once daily. 60 tablet 0 therapeutic multivitamin (THERA VITAMIN) tablet Take 1 tablet by mouth daily with br (more content not included)... [facility] 10-03-2023 History of Present illness Narrative Images from the original note were not included. Josh Lynch MD Interventional Cardiology [address] [place] [address] Chief Complaint Patient presents with: New Patient HISTORY OF PRESENT ILLNESS: Mr. Guerrier is a 73 year old male seen in my office today to establish care in our practice patient have established history of coronary artery disease which was diagnosed in 2017 presented with exertional dyspnea nuclear stress test was abnormal underwent bypass surgery for severe three-vessel coronary artery disease his bypass surgery consisted of a ADDISON to the LAD vein graft to the PDA vein graft to the ramus and vein graft to the diagonal Patient does have exertional dyspnea which she noticed lately he is on good medical therapy history of paroxysmal atrial fibrillation on anticoagulation Cardiac Risk Factors age (male over 45, female over 55), hyperlipidemia, obesity, diabetes, hypertension, family history of CAD PAST MEDICAL HISTORY Diagnosis Date Acute deep vein thrombosis (DVT) of right lower extremity (HCC) 09/27/2017 Arthritis BPH (benign prostatic hypertrophy) with urinary obstruction 10/10/2013 Calculus of kidney Coronary artery disease 2016 Stent 1 Diverticulitis Essential hypertension, benign GERD (gastroesophageal reflux disease) History of coronary artery stent placement 2016 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 Reports history of possible TIA PAST SURGICAL HISTORY Procedure Laterality Date BACK SURGERY HX CABG (4) VEIN GRAFTS & ARTERIAL GRAFT(S) 10/2016 COLON SURGERY HX COLONOSCOPY 05/28/2014 Diverticular disease- repeat in 2024 COLONOSCOPY FLX DX W/COLLJ SPEC WHEN PFRMD 02/12/2002 Colonoscopy-repeat in COLONOSCOPY FLX DX W/COLLJ SPEC WHEN PFRMD 04/26/2017 Colonoscopy ESOPHAGOGASTRODUODENOSCOPY TRANSORAL DIAGNOSTIC 04/26/2017 EGD EYE SURGERY HX FISSURECTOMY INCL SPHINCTEROTOMY WHEN PERFORMED HEART SURGERY HX HERNIA REPAIR HX LAPS COLECTOMY PRTL W/COLOPXTSTMY LW ANAST 04/14/2016 with mobilization of splenic flexure for diverticulitis PAST SURGICAL HISTORY OF 1982 lower back herniated disc PAST SURGICAL HISTORY OF 2005 low back surgery PAST SURGICAL HISTORY OF 04/04/2015 cardiac stent insertion PAST SURGICAL HISTORY OF 03/2016 colon resection REVISE MEDIAN N/CARPAL TUNNEL SURG Bilateral 06/12/2020 Bilateral carpal tunnel release RPR 1ST INGUN HRNA AGE 5 YRS/> REDUCIBLE Hernia repair, inguinal w/ mesh - right TONSILLECTOMY PRIMARY/SECONDARY <AGE 11 Tonsillectomy FAMILY HISTORY Problem Relation Age of Onset Heart Mother from CVA at age 75, CABG Hypertension Father Prostate Cancer Brother Coronary Artery Disease Brother stents other (pancreatic cancer) Sister Coronary Artery Disease Sister Coronary Artery Disease Sister Cancer Maternal Grandmother Parkinson s Disease Maternal Grandfather Cancer Paternal Grandfather Social History Tobacco Use Smoking status: Former Types: Cigarettes Quit date: 06/18/1987 Years since quittin.3 Smokeless tobacco: Never Tobacco comments: quit smoking 1987 Vaping Use Vaping Use: Never used Substance Use Topics Alcohol use: Yes Comment: 1glass of wine a day Drug use: No ALLERGIES Allergen Reactions Iv Contrast [Iodine] Angioedema IV contrast 06/01/2019 Lipitor [Atorvastat* myalgia Lovastatin myalgia Lhlwwlw-Zpc-Lje Red* Other: See Comments, Myalgia sore joints and muscles Medications: Current Outpatient Medications Medication Sig Dispense Refill tamsulosin (FLOMAX) 0.4 mg Take 1 capsule by mouth daily at bedtime. Patient should start on September 05, 2023. 30 capsule 2 omeprazole (PRILOSEC) 20 mg capsule Take 1 capsule by mouth once daily. 90 capsule 1 losartan (COZAAR) 100 mg tablet Take 1 tablet by mouth once daily. 90 tablet 3 sildenafil (VIAGRA) 50 mg tablet Take 1 tablet by mouth as needed. 30 tablet 5 rosuvastatin (CRESTOR) 40 mg tablet Take 1 tablet by mouth daily at bedtime. 90 tablet 3 metoprolol tartrate, short acting, (LOPRESSOR) 50 mg tablet Take 1 tablet by mouth two times a day. 180 tablet 3 apixaban (ELIQUIS) 5 mg tab(s) Take 1 tablet by mouth twice daily. 180 tablet 3 acetaminophen (TYLENOL ORAL) Take by mouth as needed. aspirin 81 mg chewable tablet Take 1 tablet by mouth once daily. 60 tablet 0 therapeutic multivitamin (THERA VITAMIN) tablet Take 1 tablet by mouth daily with breakfast. 0 amLODIPine (NORVASC) 2.5 mg tablet Take 1 tablet by mouth once daily. Per Dr. Dietz 30 tablet 3 albuterol HFA (PROVENTIL HFA, VENTOLIN HFA) 90 mcg/actuation inhaler Inhale 2 Puffs as instructed every 6 hours as needed for wheezing/shortness of breath. 1 Each 2 No current facility-administered medications for this visit. Review of Systems Constitutional: Negative for chills, diaphoresis, fever, malaise/fatigue and weight loss. HENT: Negative for congestion, ear discharge, ear pain, hearing loss, nosebleeds, sinus pain, sore throat and tinnitus. Eyes: Negative for blurred vision, double vision, photophobia, pain, discharge and redness. Respiratory: Positive for shortness of breath. Negative for cough, hemoptysis, sputum production, wheezing and stridor. Cardiovascular: Negative for chest pain, palpitations, orthopnea, claudication, leg swelling and PND. Gastrointestinal: Negative for abdominal pain, blood in stool, constipation, diarrhea, heartburn, melena, nausea and vomiting. Genitourinary: Negative for dysuria, flank pain, frequency, hematuria and urgency. Musculoskeletal: Negative for back pain, falls, joint pain, myalgias and neck pain. Skin: Negative for itching and rash. Neurological: Negative for dizziness, tingling, tremors, sensory change, speech change, focal weakness, seizures, loss of consciousness, weakness and headaches. Endo/Heme/Allergies: Negative for environmental allergies and polydipsia. Does not bruise/bleed easily. Psychiatric/Behavioral: Negative for depression, hallucinations, memory loss, substance abuse and suicidal ideas. The patient is not nervous/anxious and does not have insomnia. Physical Examination: Vitals:BP 156/72 Pulse 53 Ht 5' 6 (1.68m) Wt 221 lb 6.4 oz (100.4kg) SpO2 96% BMI 35.75 kg/(m^2). BP w/Orthostatic Vitals Date and Time Orthostatic BP Orthostatic Pulse BP Pulse BP Position BP Site BP Cuff Size 10/03/23 1328 -- -- 156/72 53 -- -- -- Last 2 Encounter Wt Readings: Date: Wt: 10/03/2023 100.4 kg (221 lb 6.4 oz) 09/08/2023 98.1 kg (216 lb 3.2 oz) Physical Exam Constitutional: General: He is not in acute distress. Appearance: He is not diaphoretic. HENT: Head: Normocephalic and atraumatic. Right Ear: External ear normal. Left Ear: External ear normal. Nose: Nose normal. Mouth/Throat: Pharynx: Oropharynx is clear. Eyes: General: Right eye: No discharge. Left eye: No discharge. Conjunctiva/sclera: Conjunctivae normal. Pupils: Pupils are equal, round, and reactive to light. Cardiovascular: Rate and Rhythm: Normal rate and regular rhythm. Heart sounds: Normal heart sounds, S1 normal and S2 normal. No murmur heard. No friction rub. No gallop. No S3 or S4 sounds. Pulmonary: Effort: Pulmonary effort is normal. No respiratory distress. Breath sounds: Normal breath sounds. No wheezing or rales. Chest: Chest wall: No tenderness. Abdominal: General: Abdomen is flat. Musculoskeletal: General: Normal range of motion. Cervical back: Normal range of motion and neck supple. Skin: General: Skin is warm and dry. Neurological: Mental Status: He is alert and oriented to person, place, and time. Psychiatric: Mood and Affect: Mood normal. Thought Content: Thought content normal. Judgment: Judgment normal. Pertinent Labs: CBC: Hemoglobin (g/dL) Date Value 09/26/2023 14.6 05/13/2021 14.9 Hematocrit (%) Date Value 09/26/2023 43.4 05/13/2021 45.7 WBC (k/uL) Date Value 09/26/2023 5.50 05/13/2021 5.89 Platelet Count (k/uL) Date Value 09/26/2023 195 05/13/2021 225 BMP: Glucose (mg/dL) Date Value 09/26/2023 101 10/11/2020 87 Potassium (mmol/L) Date Value 09/26/2023 4.4 10/11/2020 4.4 Sodium (mmol/L) Date Value 09/26/2023 136 10/11/2020 139 Chloride (mmol/L) Date Value 09/26/2023 104 10/11/2020 102 CO2 (mmol/L) Date Value 09/26/2023 22 10/11/2020 26 Creatinine (mg/dL) Date Value 09/26/2023 0.86 10/11/2020 0.83 BUN (mg/dL) Date Value 09/26/2023 17 10/11/2020 12 Anion Gap (mmol/L) Date Value 09/26/2023 10 10/11/2020 11 Calcium (mg/dL) Date Value 10/11/2020 9.5 Calcium, Total (mg/dL) Date Value 09/26/2023 8.9 INR: Lipid Profile: Cholesterol, Total Date Value Ref Range Status 09/26/2023 179 <200 mg/dL Final Comment: <200 mg/dL, Desirable 200-239 mg/dL, Borderline high >239 mg/dL, High HDL Cholesterol Date Value Ref Range Status 09/26/2023 50 >39 mg/dL Final Comment: 40-59 mg/dL, Acceptable >59 mg/dL, High: Negative risk factor for coronary heart disease <40 mg/dL, Low: Positive risk factor for coronary heart disease LDL Cholesterol Date Value Ref Range Status 09/26/2023 94 <100 mg/dL Final Comment: <100 mg/dL, Optimal 100-129 mg/dL, Near optimal/above optimal 130-159 mg/dL, Borderline high 160-189 mg/dL, High >189 mg/dL, Very high Secondary prevention optimal LDL Cholesterol levels are recommended to be < 70 mg/dL Triglyceride Date Value Ref Range Status 09/26/2023 173 (H) <150 mg/dL Final Comment: <150 mg/dL, Normal 150-199 mg/dL, Borderline high 200-499 mg/dL, High >499 mg/dL, Very high Hemoglobin A1C: No results found for: HGBA1C TSH: No results found for: TSHREFL Prior Cardiac Testing EKG Assessment and Plan: 73 years old with prior history of severe coronary artery disease and bypass surgery ASSESSMENT/PLAN: 1. ASHD (arteriosclerotic heart disease) - ICD9: 414.00, ICD10: I25.10 Stable coronary artery disease mild dyspnea on exertion need risk stratification with nuclear stress test - NM CARDIAC PERF STRESS/EXERCISE 2. SOB (shortness of breath) - ICD9: 786.05, ICD10: R06.02 Nuclear stress test for risk stratification - NM CARDIAC PERF STRESS/EXERCISE 3. Essential hypertension, benign - ICD9: 401.1, ICD10: I10 - Controlled - Continue current medications - Recommend home blood pressure monitoring, to bring results to next visit - Encouraged sodium restriction, DASH or Mediterranean diet - Recommend regular aerobic exercise 4. Paroxysmal atrial fibrillation (HCC) - ICD9: 427.31, ICD10: I48.0 Currently in sinus rhythm continue anticoagulation mild exertional dyspnea 5. S/P CABG x 4 - ICD9: V45.81, ICD10: Z95.1 Mild exertional dyspnea Surgery consisted of a ADDISON to the LAD vein graft to the diagonal vein graft to the ramus and vein graft PDA Schedule for nuclear stress test for risk stratification Josh Lynch MD Follow up planning: ONE YEAR Electronically signed by Josh Lynch MD on October 03, 2023, 1:52 PM The above note was partially created using a dictation recognition software. A reasonable attempt has been made to correct any errors. documented in this encounter [facility] 09-16-2023 Telephone encounter Note Spoke to pt and he is scheduled and aware to get kub prior. He insisted on seeing Dr. Tinoco. Ena DÍAZ [facility] 09-16-2023 Miscellaneous Notes Spoke to pt and he is scheduled and aware to get kub prior. He insisted on seeing Dr. Tinoco. Ena DÍAZ Patient had ESWL yesterday. He needs a KUB in 4 to 6 weeks. He can follow-up with provider in [place] or sooner if needed here documented in this encounter [facility] 09-16-2023 Telephone encounter Note Patient had ESWL yesterday. He needs a KUB in 4 to 6 weeks. He can follow-up with provider in [place] or sooner if needed here [facility] 09-15-2023 Note HNO ID: [id number] Author: GALINDO QUIROS APRN.CRNA Service: Nursing Author Type: Nurse Medical Records Tech Type: Anesthesia Procedure Notes Filed: 09/15/2023 10:58 Note Text: ANESTHESIOLOGY PROCEDURE NOTE Airway General Information Procedure Start Time/Medication Administration: 09/15/2023 10:51 AM Procedure End Time: 09/15/2023 10:51 AM Patient location during procedure: OR Timeout Performed Pre-procedure: timeout performed Consent Obtained: Yes Patient identity confirmed: arm band Staffing Performed by: REGGIE Indications and Patient Condition Indications for airway management: anesthesia Preoxygenated: yes anesthesia circuit Patient position: sniffing Method: asleep Final Airway Details Final airway type: supraglottic airway Number of attempts at approach: 1 Final Supraglottic Airway: i-gel Size 5 Seal Adequate: yes Comments Inserted by reggie carranza. SIGNATURE: Galindo Quiros APRN.CARDIOLOGY NURSE PATIENT NAME: Curtis Guerrier DATE: September 15, 2023 TIME: 10:58 AM CSN: [id number] [facility] 09-12-2023 Telephone encounter Note Phoned patient and notified of result as per provider. Patient acknowledged understanding of instructions and has no further questions. Yasemin Amaya MA [facility] 09-12-2023 Miscellaneous Notes Phoned patient and notified of result as per provider. Patient acknowledged understanding of instructions and has no further questions. Yasemin Amaya MA ----- Message from Curtis Tinoco MD sent at 09/12/2023 6:25 AM EDT ----- PREPRESS TECHNICIAN, antibiotics sent to pharmacy documented in this encounter [facility] 09-12-2023 Telephone encounter Note ----- Message from Curtis Tinoco MD sent at 09/12/2023 6:25 AM EDT ----- PREPRESS TECHNICIAN, antibiotics sent to pharmacy [facility] 09-08-2023 Instructions Shoulders, MICHA Geller.PRODUCTION TEAM MANAGER - 09/08/2023 11:02 AM EDT PATIENT PREOPERATIVE INSTRUCTIONS Your surgeon has scheduled you for your procedure at this surgery center: [facility] [phone] [address] [facility]. [place] [phone] Please enter through the main entrance, and proceed to the blue elevators. The surgery center is located left of the blue elevators. Please read below carefully for your personalized instructions. Arrival Time for Surgery: DATE: 09/15/2023 Your surgeon's office will provide you with your ARRIVAL TIME for surgery. -If you have not received an arrival time by the afternoon before your surgery date, please follow up with your surgeon's office. - If you are scheduled for Tuesday surgery, please make sure you have your arrival time by [place] afternoon. -Please be aware that emergency situations arise, which may delay or change your surgical time. If this happens, your surgeon's office will notify you as soon as possible and regret any inconvenience. Dietary Restrictions: -Nothing to eat or drink after midnight except for a sip of water with approved medications. -This is important because if you do, your surgery may have to be cancelled Blood Thinning Medications: - Stop NSAIDS (Ibuprofen, Advil, Aleve, Motrin, Celebrex, Mobic, Voltaren, Diclofenac, etc.) 7 days before surgery, as directed by your surgeon. -You may take Tylenol or pain medications that do not contain Aspirin or NSAIDs. - Stop Vitamin E, fish oil, multivitamins, Marijuana, CBD oil and other over the counter herbals and dietary supplements 7 days before surgery. ?-This would not apply to cancer patients who are prescribed Marinol or any other prescription form on marijuana or CBD. -IF YOU TAKE ANY OF THE FOLLOWING BLOOD THINNERS, PLEASE CONTACT YOUR SURGEON AND THE PHYSICIAN WHO PRESCRIBES IT FOR YOU IN ORDER TO GET PERIOPERATIVE INSTRUCTIONS SOON POSSIBLE. BLOOD THINNERS: Aspirin , Coumadin, Plavix, Eliquis, Pradaxa, Xarelto, Lovenox, Brilinta, Effient, Savaysa, Arixtra, etc Medications: Approved medications to take the morning of surgery with a sip of water: BP, Heart, thyroid, psych, seizure, and pain medications excluding NSAIDS. Use inhalers as prescribed. Please bring inhalers. Medications to be taken with small amount of fluid on the morning of surgery: If these are morning medications, go ahead and take: Approved medications to take the morning of surgery with a sip of water: BP, Heart, thyroid, psych, seizure, and pain medications excluding NSAIDS. Use inhalers as prescribed. Please bring inhalers. Pre-Surgery Med Instructions Medication Instructions tamsulosin (FLOMAX) 0.4 mg Ok to take as scheduled omeprazole (PRILOSEC) 20 mg capsule Ok to take as scheduled losartan (COZAAR) 100 mg tablet HOLD DAY OF SURGERY sildenafil (VIAGRA) 50 mg tablet Stop 2 days before surgery rosuvastatin (CRESTOR) 40 mg tablet Ok to take as scheduled metoprolol tartrate, short acting, (LOPRESSOR) 50 mg tablet Take morning of surgery with sip of water, no other fluids albuterol HFA (PROVENTIL HFA, VENTOLIN HFA) 90 mcg/actuation inhaler Ok to take as scheduled apixaban (ELIQUIS) 5 mg tab(s) Notify surgeon and prescriber for preop instructions acetaminophen (TYLENOL ORAL) Ok to take as scheduled amLODIPine (NORVASC) 2.5 mg tablet Take morning of surgery with sip of water, no other fluids aspirin 81 mg chewable tablet Notify surgeon and prescriber for preop instructions therapeutic multivitamin (THERA VITAMIN) tablet Stop 7 days before surgery - HOLD LICHA inhibitors (Angiotensin-converting enzyme inhibitors) and Angiotensin II receptor blockers (ARBs) Day of surgery. Preoperative Instructions for Patients with Diabetes Mellitus: Please follow up with the provider that manages your diabetes and how to prepare you for surgery. - Do not take the morning of surgery; Trajenta, Metformin, Actos/Pioglitazone and Amaryl/Glimepiride. - For the following Medications, please HOLD 2 DAYS PRIOR TO SURGERY: Glucotrol/Glipizide, Januvia/Sitagliptin, Glyburide, Prandin/Repaglinide, Starlix/Nateglinide, Symlin/Pramlintide, - For the following Medications, please HOLD 3 DAYS PRIOR TO SURGERY: Canagliflozin/Invokana, Dapagliflozin/Farxiga ,Empagliflozin/Jardiance, Invokamet/canagliflozin and metformin, Xigduo XR/ dapagliglozin and metformin, Glyxambi/ empagliflozin and metformin, Syndardy/ empagliflozin and metformin - For the following Medications, please HOLD 4 DAYS PRIOR TO SURGERY: Ertugliflozin/Steglatro - For the following Medications, please HOLD 7 DAYS PRIOR TO SURGERY: GLP-1 AGONIST: Adlyxin (lixisenatide), Bydureon BCise (exenatide suspension), Byetta (exenatide), Mounjaro (tirzepatide), Ozempic (semaglutide injection), Rybelsus (semaglutide tablets), Tanzeum (albiglutide), Trulicity (dulaglutide), Victoza (liraglutide), Wegovy (semaglutide), Saxenda (liraglutide) Insulin Medication Instructions: Please follow up with the provider that manages your Insulin and how to prepare you for surgery. If you start any new medications after today's visit, please contact the surgeon's office. Erectile Dysfunction If you take any medications for erectile dysfunction, please do not take these 48 hours prior to surgery. Important Reminders: - You need a responsible person to stay and wait for you at the hospital or surgery center during your procedure. - If you are undergoing an outpatient procedure you must have someone drive you home and stay with you for 24 hours. Your surgery may be cancelled if you do not have someone to drive you home or take care of you for 24 hours. - If you use CPAP/BIPAP, bring the machine with you to the surgery center. - If you are prescribed inhalers for breathing, continue using them AND bring them to the surgery center. - Candy, mints, gum and tobacco products are NOT permitted the morning of surgery. - Hearing aids, dentures and glasses may be worn the morning of surgery. - NO jewelry, body piercings, makeup, hairpins or contacts are to be worn the day of surgery. -Oral hygiene and a shower or bath is required the evening before or the morning of surgery. - NO lotion, creams, powders or deodorants on the skin the day of surgery -Wear loose, comfortable clothing that will accommodate bandages. -Your length of stay will be determined by your surgeon - You will need to have someone else (Family or friend) drive you home once discharged from the hospital. You are not allowed to drive yourself home after surgery. - YOU MUST HAVE A RESPONSIBLE PREHEMMER TAKE YOU HOME. A TOOLROOM ATTENDANT, CAB OR UBER PREHEMMER CANNOT BE MADE A RESPONSIBLE PREHEMMER. - We recommend that a responsible person stays with you overnight to take care of you. - You cannot stay in a hotel alone after outpatient surgery. You will not be permitted to have your surgery, if you do not have someone to take care of you. - If you have a stimulator, implant or pump that requires a remote please bring the remote with you day of surgery. If you develop symptoms such as a fever, cold, or flu, or have other changes to your health within TWO DAYS of scheduled surgery or the morning of surgery, please contact the surgery center above. Visitors to any [facility] facility: - An individual who is sick should not visit. - Visitors to patients with COVID-19 must follow these guidelines, which include wearing a mask, eye protection, gown and gloves. [facility]- Visitations are: - Visitation hours are from 7 a.m. to 9 p.m. - Pre- Surgery-Patients may have up to two visitors at a time. - PACU-Patients may have up to 1-2 visitors at a time. Personal Belongings: - Leave ALL valuables and money at home or with family members. - You will need a form of ID and insurance card to check in the morning of surgery. - You will have to wear a hospital gown during your stay but if you wish to bring undergarments for after surgery you may. -If you do not have a copy of advance directives on file with us, please bring a copy with you on the day of surgery. If you already have an Advance Directive, please fax a copy to [phone] or email to for it to be added to your chart. If you do not have an Advance Directive, you can find the appropriate form and more information at [email or web address]. We recommend that you complete the Advance Directive form found on the website and bring it with you the day of your surgery. It can be witnessed and scanned into your chart that day. Jeremy Ruiz APRN.CNP 09/08/23 documented in this encounter [facility] 09-08-2023 History and physical note HISTORY AND PHYSICAL EXAMINATION SERVICE DATE: 09/08/2023 SERVICE TIME: 10:40 AM PRIMARY CARE PHYSICIAN: Jason Cook MD Assessment Patient has the following medical conditions which may affect riccardo-operative course: Preop testing Assessment : See Note for medical conditions which may affect riccardo-operative course was addressed in visit today. Arteriosclerosis of coronary artery Assessment: Followed by Cardiology - H/O CABG - H/O cardiac stent - taking aspirin; metoprolol Plan: Aspirin-patient instructed to notify surgeon and prescriber for preop instructions Paroxysmal atrial fibrillation (HCC) Assessment: Followed by Cardiology - taking Eliquis; metoprolol Plan: Eliquis-patient instructed to notify surgeon and prescriber for preop instructions. Metoprolol patient instructed to take day of surgery. GERD (gastroesophageal reflux disease) Assessment: Taking omeprazole Essential hypertension, benign Assessment: Taking amlodipine; losartan Plan: Losartan-patient instructed to hold day of surgery. Hyperlipidemia with target LDL less than 100 Assessment: Taking rosuvastatin 40 mg daily. Obesity (BMI 30-39.9) Assessment: BMI 34.90 NOTE: Patient denies history of DVT and Stroke. Stress Test scanned in [facility] 12/22/2021 demonstrated EF 68% Campbell Activity Status Index: METS: Climb a flight of stairs or walk up a hill (5.50 METs) DASI Score: 5.5 Patient denies any chest pain or undue shortness of breath with the above physical activity. Clinical Frailty Scale: 3. Well, with treated comorbid disease ARISCAT Score: Age: 51-80 Preoperative SpO2: >=96% Respiratory infection in the last month: No Preoperative anemia: No Surgical incision: peripheral Duration of surgery: <2 hrs Emergency procedure: No ARISCAT Score: 3 ANESTHESIA FINDINGS: Intubation History: No history of difficult intubation Significant Anesthesia Considerations: none Airway History: No history of difficult airway I - PHYSICAL EVALUATION AIRWAY Patient intubated: No. DENTAL Dental findings: teeth intact. II - ANESTHESIA PLAN Anesthetic Plan: general Beta Isadora Monitoring Plan Post Procedure Analgesic Plan Prepared for Surgery: CONSULTS: Patient does not require consults for optimization at this time Planned Anesthetic: general The Following Tests/Procedures Have Been Initiated: No orders of the defined types were placed in this encounter. REASON FOR VISIT: Curtis Guerrier is a 73 year old male who is scheduled for Procedure(s): EXTRACORPOREAL SHOCKWAVE LITHOTRIPSY UNILATERAL (Right) at the request of @[email or web address]@ for routine H&P. My final recommendation will be communicated back to the requesting physician by way of shared medical record or letter. The reason for this visit is to perform a comprehensive review of the patient's past medical history, assess their current health status and obtain any additional testing required based on anesthesia guidelines. We will also identify any potential anesthesia problems or contraindications to the planned procedure. Subjective The patient has the following: ACTIVE PROBLEM LIST Essential Hypertension, Benign Hearing Loss Hypercalciuria Hyperlipidemia With Target Ldl Less Than 100 History of Kidney Stones Bph (Benign Prostatic Hypertrophy) With Urinary Obstruction Gerd (Gastroesophageal Reflux Disease) Presence of Drug Coated 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 Coronary Artery Obesity (Bmi 30-39.9) Lipid Disorder Ashd (Arteriosclerotic Heart Disease) S/P Cabg X 4 Family History of Prostate Cancer Osteoarthritis of Spine With Radiculopathy, Cervical Region Lumbar Radiculopathy Paroxysmal Atrial Fibrillation (Hcc) History of Squamous Cell Carcinoma Preop Testing Arteriosclerosis of Coronary Artery COVID-19 Immunization Status Covid-19 Vaccine (Series Information) Completed 07/26/2023 Imm Admin: COVID-19 vaccine, age 12+ yr, season (MODERNA) 12/18/2022 Imm Admin: COVID-19 vaccine, age 12+ yr, 2022- season (MODERNA) 12/23/2021 Imm Admin: COVID-19 vaccine, age 12+ yr, bivalent (Gate[employer]) Only the first 3 history entries have been loaded, but more history exists. CHIEF COMPLAINT: Renal stone HPI: Patient reports history of renal stones. Today, he denies pain, rating 0 out of 10 on the numeric pain scale. He reports he does experience occasional right flank pain. He denies urinary urgency or frequency, dysuria or hematuria at this time. After discussion with surgeon patient agreeable to surgical intervention. REVIEW OF SYSTEMS: General: No weight loss, malaise or fevers. Neurological: Negative for: headaches, seizures and strokes. Respiratory: Negative for: asthma, COPD, current cough, pneumonia within 6 weeks and obstructive sleep apnea. Cardiovascular: Positive for: atrial fibrillation, CAD, hyperlipidemia and hypertension Negative for: arrhythmia, chest pain, CHF and murmur/valvular heart disease. GI: Positive for: GERD Negative for: abdominal pain, nausea and vomiting. : See HPI. Endocrine: Negative for: diabetes mellitus and hypothyroidism. Hematology: No history of bleeding or clotting disorder. Patient is not taking anti-coagulation or platelet medications. No history of hematological symptoms or problems. Negative for: anemia and factor V Leiden. Oncology: No history of CA metastasis, chemo within 30 days, or radiotherapy within 90 days. No history of oncological symptoms or problems. Psych: No history of psychiatric symptoms or problems. Musculoskeletal: Negative for joint pain or swelling, back pain or muscle pain. Skin: Negative for lesions, rash and itching. 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 Reports history of possible TIA PAST SURGICAL HISTORY Procedure Laterality Date BACK SURGERY HX CABG (4) VEIN GRAFTS & ARTERIAL GRAFT(S) 10/2016 COLON SURGERY HX COLONOSCOPY 05/28/2014 Diverticular disease- repeat in 2024 COLONOSCOPY FLX DX W/COLLJ SPEC WHEN PFRMD 02/12/2002 Colonoscopy-repeat in COLONOSCOPY FLX DX W/COLLJ SPEC WHEN PFRMD 04/26/2017 Colonoscopy ESOPHAGOGASTRODUODENOSCOPY TRANSORAL DIAGNOSTIC 04/26/2017 EGD EYE SURGERY HX FISSURECTOMY INCL SPHINCTEROTOMY WHEN PERFORMED HEART SURGERY HX HERNIA REPAIR HX LAPS COLECTOMY PRTL W/COLOPXTSTMY LW ANAST 04/14/2016 with mobilization of splenic flexure for diverticulitis PAST SURGICAL HISTORY OF 1982 lower back herniated disc PAST SURGICAL HISTORY OF 2005 low back surgery PAST SURGICAL HISTORY OF 04/04/2015 cardiac stent insertion PAST SURGICAL HISTORY OF 03/2016 colon resection REVISE MEDIAN N/CARPAL TUNNEL SURG Bilateral 06/12/2020 Bilateral carpal tunnel release RPR 1ST INGUN HRNA AGE 5 YRS/> REDUCIBLE Hernia repair, inguinal w/ mesh - right TONSILLECTOMY PRIMARY/SECONDARY Tonsillectomy FAMILY HISTORY Problem Relation Age of Onset Heart Mother from CVA at age 75, CABG Hypertension Father Prostate Cancer Brother Coronary Artery Disease Brother stents other (pancreatic cancer) Sister Coronary Artery Disease Sister Coronary Artery Disease Sister Cancer Maternal Grandmother Parkinson s Disease Maternal Grandfather Cancer Paternal Grandfather Social History Tobacco Use Smoking status: Former Types: Cigarettes Quit date: 06/18/1987 Years since quittin.2 Smokeless tobacco: Never Tobacco comments: quit smoking 1987 Vaping Use Vaping Use: Never used Substance Use Topics Alcohol use: Yes Comment: 1glass of wine a day Drug use: No Prior to Admission medications as of 09/08/23 1047 Medication Sig Last Dose Taking tamsulosin (FLOMAX) 0.4 mg Take 1 capsule by mouth daily at bedtime. Patient should start on September 05, 2023. Taking Yes omeprazole (PRILOSEC) 20 mg capsule Take 1 capsule by mouth once daily. Taking Yes losartan (COZAAR) 100 mg tablet Take 1 tablet by mouth once daily. Taking Yes sildenafil (VIAGRA) 50 mg tablet Take 1 tablet by mouth as needed. Taking Yes rosuvastatin (CRESTOR) 40 mg tablet Take 1 tablet by mouth daily at bedtime. Taking Yes metoprolol tartrate, short acting, (LOPRESSOR) 50 mg tablet Take 1 tablet by mouth two times a day. Taking Yes albuterol HFA (PROVENTIL HFA, VENTOLIN HFA) 90 mcg/actuation inhaler Inhale 2 Puffs as instructed every 6 hours as needed for wheezing/shortness of breath. Taking Yes apixaban (ELIQUIS) 5 mg tab(s) Take 1 tablet by mouth twice daily. Taking Yes acetaminophen (TYLENOL ORAL) Take by mouth as needed. Taking Yes amLODIPine (NORVASC) 2.5 mg tablet Take 1 tablet by mouth once daily. Per Dr. Dietz Taking Yes aspirin 81 mg chewable tablet Take 1 tablet by mouth once daily. Taking Yes therapeutic multivitamin (THERA VITAMIN) tablet Take 1 tablet by mouth daily with breakfast. Taking Yes Medication Comments documented by Heather Odonnell MA on 11/08/2014 at 0934. Advil as needed. Heather Odonnell Ma ALLERGIES Allergen Reactions Iv Contrast [Iodine] Angioedema IV contrast 06/01/2019 Lipitor [Atorvastat* myalgia Lovastatin myalgia Piblqzy-Fju-Xcv Red* Other: See Comments, Myalgia sore joints and muscles Objective PHYSICAL EXAM: General: alert and oriented and obese. Pertinent negatives noted - not distressed. Skin: normal color, no rash or lesions. HEENT: EOM intact. Cardiovascular: Pulse characterized as roseanne.Pertinent negatives noted - no murmur, no rub and no gallop. +HR 54. Respiratory: normal breath sounds, no wheezes or crackles. No chest wall deformity or tenderness. Abdomen: bowel sounds present. Extremities: no deformity, no edema or tenderness, no joint swelling or clubbing. Neurological: normal cognition and motor skills. Gait normal. No weakness or sensory deficit. PAIN ASSESSMENT: Pain Pain Level: 0 VITALS: BP 137/76 Pulse 54 Temp 97.8 Resp 16 Ht 5' 6 (1.68m) Wt 216 lb 3.2 oz (98.1kg) SpO2 100% BMI 34.91 kg/(m^2). Diagnostic tests reviewed for today's visit: Lab Value Units Date High Low HB 15.4 g/dL 08/04/2023 17.0 13.0 HCT 46.9 % 08/04/2023 51.0 39.0 WBC 6.14 k/uL 08/04/2023 11.00 3.70 PLT 217 k/uL 08/04/2023 400 150 NA 138 mmol/L 08/04/2023 144 136 K 3.9 mmol/L 08/04/2023 5.1 3.7 GLUC 94 mg/dL 08/04/2023 99 74 BUN 22 mg/dL 08/04/2023 24 9 CREAT 0.99 mg/dL 08/04/2023 1.22 0.73 PTSEC No results within date range. INR No results within date range. APTT No results within date range. ALT 17 U/L 08/04/2023 54 10 AST 21 U/L 08/04/2023 40 14 TBILI 0.5 mg/dL 08/04/2023 1.3 0.2 TSH No results within date range. Lab Value Units Date High Low HCGQT No results within date range. UHCG No results within date range. HCG, BODY* No results within date range. Lab Value Units Date High Low ABORHD No results within date range. ABSCREEN No results within date range. Hemoglobin A1C (%) Date Value 11/09/2016 5.3 No results found for this or any previous visit (from the past 8760 hour(s)). No results found for this or any previous visit (from the past 02185 hour(s)). Implantable Devices: cardiac stent; sternal instrumentation Assessment/Plan Calculus, renal [N20.0] PLAN Planned Procedure: Procedure(s): EXTRACORPOREAL SHOCKWAVE LITHOTRIPSY UNILATERAL (Right) The Following Tests/Procedures Have Been Initiated: CBC, BMP and urine culture ordered in [facility] by MARCOS. Instructions Given to Patient: Instructions located in the after visit summary. Patient given verbal and written preop instructions and voices comprehension and compliance. I spent a total of 40 minutes on the date of the service which included preparing to see the patient, [id number] patient care, completing clinical documentation, obtaining and/or reviewing separately obtained history, performing a medically appropriate examination, and counseling and educating the patient/family/caregiver. SIGNATURE: Jeremy Ruiz APRN.CNP PATIENT NAME: Curtis Guerrier DATE: September 08, 2023 TIME: 7:43 AM PAGER/CONTACT #: [place] 09-08-2023 History and physical note HISTORY AND PHYSICAL EXAMINATION SERVICE DATE: 09/08/2023 SERVICE TIME: 10:40 AM PRIMARY CARE PHYSICIAN: Jason Cook MD Assessment Patient has the following medical conditions which may affect riccardo-operative course: Preop testing Assessment : See Note for medical conditions which may affect riccardo-operative course was addressed in visit today. Arteriosclerosis of coronary artery Assessment: Followed by Cardiology - H/O CABG - H/O cardiac stent - taking aspirin; metoprolol Plan: Aspirin-patient instructed to notify surgeon and prescriber for preop instructions Paroxysmal atrial fibrillation (HCC) Assessment: Followed by Cardiology - taking Eliquis; metoprolol Plan: Eliquis-patient instructed to notify surgeon and prescriber for preop instructions. Metoprolol patient instructed to take day of surgery. GERD (gastroesophageal reflux disease) Assessment: Taking omeprazole Essential hypertension, benign Assessment: Taking amlodipine; losartan Plan: Losartan-patient instructed to hold day of surgery. Hyperlipidemia with target LDL less than 100 Assessment: Taking rosuvastatin 40 mg daily. Obesity (BMI 30-39.9) Assessment: BMI 34.90 NOTE: Patient denies history of DVT and Stroke. Stress Test scanned in [facility] 12/22/2021 demonstrated EF 68% Campbell Activity Status Index: METS: Climb a flight of stairs or walk up a hill (5.50 METs) DASI Score: 5.5 Patient denies any chest pain or undue shortness of breath with the above physical activity. Clinical Frailty Scale: 3. Well, with treated comorbid disease ARISCAT Score: Age: 51-80 Preoperative SpO2: >=96% Respiratory infection in the last month: No Preoperative anemia: No Surgical incision: peripheral Duration of surgery: <2 hrs Emergency procedure: No ARISCAT Score: 3 ANESTHESIA FINDINGS: Intubation History: No history of difficult intubation Significant Anesthesia Considerations: none Airway History: No history of difficult airway I - PHYSICAL EVALUATION AIRWAY Patient intubated: No. DENTAL Dental findings: teeth intact. II - ANESTHESIA PLAN Anesthetic Plan: general Beta Isadora Monitoring Plan Post Procedure Analgesic Plan Prepared for Surgery: CONSULTS: Patient does not require consults for optimization at this time Planned Anesthetic: general The Following Tests/Procedures Have Been Initiated: No orders of the defined types were placed in this encounter. REASON FOR VISIT: Curtis Guerrier is a 73 year old male who is scheduled for Procedure(s): EXTRACORPOREAL SHOCKWAVE LITHOTRIPSY UNILATERAL (Right) at the request of @[email or web address]@ for routine H&P. My final recommendation will be communicated back to the requesting physician by way of shared medical record or letter. The reason for this visit is to perform a comprehensive review of the patient's past medical history, assess their current health status and obtain any additional testing required based on anesthesia guidelines. We will also identify any potential anesthesia problems or contraindications to the planned procedure. Subjective The patient has the following: ACTIVE PROBLEM LIST Essential Hypertension, Benign Hearing Loss Hypercalciuria Hyperlipidemia With Target Ldl Less Than 100 History of Kidney Stones Bph (Benign Prostatic Hypertrophy) With Urinary Obstruction Gerd (Gastroesophageal Reflux Disease) Presence of Drug Coated 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 Coronary Artery Obesity (Bmi 30-39.9) Lipid Disorder Ashd (Arteriosclerotic Heart Disease) S/P Cabg X 4 Family History of Prostate Cancer Osteoarthritis of Spine With Radiculopathy, Cervical Region Lumbar Radiculopathy Paroxysmal Atrial Fibrillation (Hcc) History of Squamous Cell Carcinoma Preop Testing Arteriosclerosis of Coronary Artery COVID-19 Immunization Status Covid-19 Vaccine (Series Information) Completed 07/26/2023 Imm Admin: COVID-19 vaccine, age 12+ yr, season (MODERNA) 12/18/2022 Imm Admin: COVID-19 vaccine, age 12+ yr, season (MODERNA) 12/23/2021 Imm Admin: COVID-19 vaccine, age 12+ yr, bivalent ([employer]) Only the first 3 history entries have been loaded, but more history exists. CHIEF COMPLAINT: Renal stone HPI: Patient reports history of renal stones. Today, he denies pain, rating 0 out of 10 on the numeric pain scale. He reports he does experience occasional right flank pain. He denies urinary urgency or frequency, dysuria or hematuria at this time. After discussion with surgeon patient agreeable to surgical intervention. REVIEW OF SYSTEMS: General: No weight loss, malaise or fevers. Neurological: Negative for: headaches, seizures and strokes. Respiratory: Negative for: asthma, COPD, current cough, pneumonia within 6 weeks and obstructive sleep apnea. Cardiovascular: Positive for: atrial fibrillation, CAD, hyperlipidemia and hypertension Negative for: arrhythmia, chest pain, CHF and murmur/valvular heart disease. GI: Positive for: GERD Negative for: abdominal pain, nausea and vomiting. : See HPI. Endocrine: Negative for: diabetes mellitus and hypothyroidism. Hematology: No history of bleeding or clotting disorder. Patient is not taking anti-coagulation or platelet medications. No history of hematological symptoms or problems. Negative for: anemia and factor V Leiden. Oncology: No history of CA metastasis, chemo within 30 days, or radiotherapy within 90 days. No history of oncological symptoms or problems. Psych: No history of psychiatric symptoms or problems. Musculoskeletal: Negative for joint pain or swelling, back pain or muscle pain. Skin: Negative for lesions, rash and itching. 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 Reports history of possible TIA PAST SURGICAL HISTORY Procedure Laterality Date BACK SURGERY HX CABG (4) VEIN GRAFTS & ARTERIAL GRAFT(S) 10/2016 COLON SURGERY HX COLONOSCOPY 05/28/2014 Diverticular disease- repeat in 2024 COLONOSCOPY FLX DX W/COLLJ SPEC WHEN PFRMD 02/12/2002 Colonoscopy-repeat in COLONOSCOPY FLX DX W/COLLJ SPEC WHEN PFRMD 04/26/2017 Colonoscopy ESOPHAGOGASTRODUODENOSCOPY TRANSORAL DIAGNOSTIC 04/26/2017 EGD EYE SURGERY HX FISSURECTOMY INCL SPHINCTEROTOMY WHEN PERFORMED HEART SURGERY HX HERNIA REPAIR HX LAPS COLECTOMY PRTL W/COLOPXTSTMY LW ANAST 04/14/2016 with mobilization of splenic flexure for diverticulitis PAST SURGICAL HISTORY OF 1982 lower back herniated disc PAST SURGICAL HISTORY OF 2005 low back surgery PAST SURGICAL HISTORY OF 04/04/2015 cardiac stent insertion PAST SURGICAL HISTORY OF 03/2016 colon resection REVISE MEDIAN N/CARPAL TUNNEL SURG Bilateral 06/12/2020 Bilateral carpal tunnel release RPR 1ST INGUN HRNA AGE 4 YRS/> REDUCIBLE Hernia repair, inguinal w/ mesh - right TONSILLECTOMY PRIMARY/SECONDARY <AGE 12 Tonsillectomy FAMILY HISTORY Problem Relation Age of Onset Heart Mother from CVA at age 75, CABG Hypertension Father Prostate Cancer Brother Coronary Artery Disease Brother stents other (pancreatic cancer) Sister Coronary Artery Disease Sister Coronary Artery Disease Sister Cancer Maternal Grandmother Parkinson s Disease Maternal Grandfather Cancer Paternal Grandfather Social History Tobacco Use Smoking status: Former Types: Cigarettes Quit date: 06/18/1987 Years since quittin.2 Smokeless tobacco: Never Tobacco comments: quit smoking 1987 Vaping Use Vaping Use: Never used Substance Use Topics Alcohol use: Yes Comment: 1glass of wine a day Drug use: No Prior to Admission medications as of 09/08/23 1047 Medication Sig Last Dose Taking tamsulosin (FLOMAX) 0.4 mg Take 1 capsule by mouth daily at bedtime. Patient should start on September 05, 2023. Taking Yes omeprazole (PRILOSEC) 20 mg capsule Take 1 capsule by mouth once daily. Taking Yes losartan (COZAAR) 100 mg tablet Take 1 tablet by mouth once daily. Taking Yes sildenafil (VIAGRA) 50 mg tablet Take 1 tablet by mouth as needed. Taking Yes rosuvastatin (CRESTOR) 40 mg tablet Take 1 tablet by mouth daily at bedtime. Taking Yes metoprolol tartrate, short acting, (LOPRESSOR) 50 mg tablet Take 1 tablet by mouth two times a day. Taking Yes albuterol HFA (PROVENTIL HFA, VENTOLIN HFA) 90 mcg/actuation inhaler Inhale 2 Puffs as instructed every 6 hours as needed for wheezing/shortness of breath. Taking Yes apixaban (ELIQUIS) 5 mg tab(s) Take 1 tablet by mouth twice daily. Taking Yes acetaminophen (TYLENOL ORAL) Take by mouth as needed. Taking Yes amLODIPine (NORVASC) 2.5 mg tablet Take 1 tablet by mouth once daily. Per Dr. Dietz Taking Yes aspirin 81 mg chewable tablet Take 1 tablet by mouth once daily. Taking Yes therapeutic multivitamin (THERA VITAMIN) tablet Take 1 tablet by mouth daily with breakfast. Taking Yes Medication Comments documented by Heather Odonnell MA on 11/08/2014 at 0934. Advil as needed. Heather Odonnell Ma ALLERGIES Allergen Reactions Iv Contrast [Iodine] Angioedema IV contrast 06/01/2019 Lipitor [Atorvastat* myalgia Lovastatin myalgia Piectlg-[id number] Red* Other: See Comments, Myalgia sore joints and muscles Objective PHYSICAL EXAM: General: alert and oriented and obese. Pertinent negatives noted - not distressed. Skin: normal color, no rash or lesions. HEENT: EOM intact. Cardiovascular: Pulse characterized as roseanne.Pertinent negatives noted - no murmur, no rub and no gallop. +HR 54. Respiratory: normal breath sounds, no wheezes or crackles. No chest wall deformity or tenderness. Abdomen: bowel sounds present. Extremities: no deformity, no edema or tenderness, no joint swelling or clubbing. Neurological: normal cognition and motor skills. Gait normal. No weakness or sensory deficit. PAIN ASSESSMENT: Pain Pain Level: 0 VITALS: BP 137/76 Pulse 54 Temp 97.8 Resp 16 Ht 5' 6 (1.68m) Wt 216 lb 3.2 oz (98.1kg) SpO2 100% BMI 34.91 kg/(m^2). Diagnostic tests reviewed for today's visit: Lab Value Units Date High Low HB 15.4 g/dL 08/04/2023 17.0 13.0 HCT 46.9 % 08/04/2023 51.0 39.0 WBC 6.14 k/uL 08/04/2023 11.00 3.70 PLT 217 k/uL 08/04/2023 400 150 NA 138 mmol/L 08/04/2023 144 136 K 3.9 mmol/L 08/04/2023 5.1 3.7 GLUC 94 mg/dL 08/04/2023 99 74 BUN 22 mg/dL 08/04/2023 24 9 CREAT 0.99 mg/dL 08/04/2023 1.22 0.73 PTSEC No results within date range. INR No results within date range. APTT No results within date range. ALT 17 U/L 08/04/2023 54 10 AST 21 U/L 08/04/2023 40 14 TBILI 0.5 mg/dL 08/04/2023 1.3 0.2 TSH No results within date range. Lab Value Units Date High Low HCGQT No results within date range. UHCG No results within date range. HCG, BODY* No results within date range. Lab Value Units Date High Low ABORHD No results within date range. ABSCREEN No results within date range. Hemoglobin A1C (%) Date Value 11/09/2016 5.3 No results found for this or any previous visit (from the past 8760 hour(s)). No results found for this or any previous visit (from the past 38523 hour(s)). Implantable Devices: cardiac stent; sternal instrumentation Assessment/Plan Calculus, renal [N20.0] PLAN Planned Procedure: Procedure(s): EXTRACORPOREAL SHOCKWAVE LITHOTRIPSY UNILATERAL (Right) The Following Tests/Procedures Have Been Initiated: CBC, BMP and urine culture ordered in [facility] by MARCOS. Instructions Given to Patient: Instructions located in the after visit summary. Patient given verbal and written preop instructions and voices comprehension and compliance. I spent a total of 40 minutes on the date of the service which included preparing to see the patient, [id number] patient care, completing clinical documentation, obtaining and/or reviewing separately obtained history, performing a medically appropriate examination, and counseling and educating the patient/family/caregiver. SIGNATURE: Jeremy Ruiz APRN.CNP PATIENT NAME: Curtis Guerrier DATE: September 08, 2023 TIME: 7:43 AM PAGER/CONTACT #: documented in this encounter [place] 09-08-2023 Telephone encounter Note Pt is scheduled for Rt ESWL with Dr Tinoco at [facility] on 09/15/23 @ 1:15 (11:15 arrival). PAT and labs on 09/08/23 @ 10:40 at [facility]. Pt needs to stop aspirin 7 days prior and stop Eliquis 3 days prior. Clearance request faxed to PCP Dr Jason Cook on 09/07/23. 09/08/23- Clearance received and scanned into chart. Pt given date, time, prep and arrival instructions over the phone on 09/07/23. [employer] message sent also. Cherri Grimes [place] 09-08-2023 Miscellaneous Notes Pt is scheduled for Rt ESWL with Dr Tinoco at [facility] on 09/15/23 @ 1:15 (11:15 arrival). PAT and labs on 09/08/23 @ 10:40 at [facility]. Pt needs to stop aspirin 7 days prior and stop Eliquis 3 days prior. Clearance request faxed to PCP Dr Jason Cook on 09/07/23. 09/08/23- Clearance received and scanned into chart. Pt given date, time, prep and arrival instructions over the phone on 09/07/23. [employer] message sent also. Cherri Grimes documented in this encounter [place] 09-07-2023 Telephone encounter Note Rock, I reviewed his chart and imaging. Patient had a left ESWL in 2019 and was safely able to come off his Eliquis for 3 days and aspirin for 7 days prior to the left ESWL It appears based on follow-up recent CT that the left ESWL was successful He now has a 5 to 6 mm right renal stone He has the option of following this conservatively or we could treat it with right ESWL. Cherri -we would still need clearance for him to come off aspirin for 1 week and Eliquis for 3 days We can arrange surgery and I can meet him prior to surgery or he can arrange an office appointment to discuss [place] Work Phone: 09-07-2023 Miscellaneous Notes Rock, I reviewed his chart and imaging. Patient had a left ESWL in 2019 and was safely able to come off his Eliquis for 3 days and aspirin for 7 days prior to the left ESWL It appears based on follow-up recent CT that the left ESWL was successful He now has a 5 to 6 mm right renal stone He has the option of following this conservatively or we could treat it with right ESWL. Cherri -we would still need clearance for him to come off aspirin for 1 week and Eliquis for 3 days We can arrange surgery and I can meet him prior to surgery or he can arrange an office appointment to discuss documented in this encounter [place] 09-02-2023 Note HNO ID: [id number] Author: COLLEEN SALEH RDMS Service: ? Author Type: Marine Equipment Engineer Type: Progress Notes Filed: 09/02/2023 08:52 Note Text: Radiology Service Progress Note PATIENT NAME: Curtis Guerrier DATE OF SERVICE: September 02, 2023 TIME: 8:51 AM PATIENT IDENTITY VERIFICATION COMPLETED USING TWO (2) IDENTIFIERS: Name and Date of confirmed by patient verbally. FALL SCREENING: Has the patient had 2 falls in the last year or 1 fall with injury or currently using an Ambulatory Assistive Device (Walker, Cane, Wheelchair, Crutches, etc.)? No PATIENT GENDER DATA: Male PATIENT RELEVANT IMPLANT DATA REVIEWED: Not Applicable PATIENT PRESENTS WITH AN IMPLANTABLE OR ATTACHED PAYROLL ACCOUNTING MANAGER: No RADIOLOGY DEPARTMENT: Ultrasound PERIPHERAL IV DATA: Not applicable SIGNED BY: Colleen Saleh RDMS September 02, 2023 8:51 AM [facility] 09-02-2023 Note HNO ID: [id number] Author: ALBINO SAM RT(Rhianna) Service: ? Author Type: Technologist Type: Progress Notes Filed: 09/02/2023 08:16 Note Text: Radiology Service Progress Note PATIENT NAME: Curtis Guerrier DATE OF SERVICE: September 02, 2023 TIME: 8:15 AM PATIENT IDENTITY VERIFICATION COMPLETED USING TWO (2) IDENTIFIERS: Name and Date of confirmed by patient verbally. FALL SCREENING: Has the patient had 2 falls in the last year or 1 fall with injury or currently using an Ambulatory Assistive Device (Walker, Cane, Wheelchair, Crutches, etc.)? No PATIENT GENDER DATA: Male PATIENT RELEVANT IMPLANT DATA REVIEWED: Not Applicable PATIENT PRESENTS WITH AN IMPLANTABLE OR ATTACHED PAYROLL ACCOUNTING MANAGER: No RADIOLOGY DEPARTMENT: General X-ray: Exam(s) Completed: Abdomen X-Ray: Abdomen, KUB PERIPHERAL IV DATA: Not applicable SIGNED BY: RT Ghassan(R) September 02, 2023 8:15 AM [facility] 08-24-2023 Note HNO ID: [id number] Author: LEIGHTON WARD MD Service: ? Author Type: Physician Type: Progress Notes Filed: 08/24/2023 07:52 Note Text: Patient returns for follow up skin check Last visit was 6 months ago. 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 04/20/2021 Family History: no NEW COMPLAINTS: no new areas MEDICAL HX: Kidney stone PHYSICAL EXAM: The patient is pleasant, oriented x 3, in no acute distress. Exam performed of the scalp, face, neck, chest, back, abdomen, arms, legs, and buttock. Significant findings noted below, otherwise no suspicious lesions noted at this time. Arms and Legs, Photodistributed, Scalp, Trunk Findings as follows: Abdomen (Lower Torso, Anterior), Chest (Upper Torso, Anterior), Head, Left Arm, Left Leg, Neck, Right Arm, Right Leg, Torso - Posterior (Back) Diffusely scattered reed macules and patches on sun exposed areas. Left Parietal Scalp 4 x 4 bluish hernandez macule IMPRESSION/PLAN: Skin exam, screening for cancer (4) Scalp; Trunk; Photodistributed; Arms and Legs The nature of sun-induced photo-aging and skin cancers is discussed. Sun avoidance, protective clothing, and the use of 30-SPF or higher sunscreens is advised. Must be used every 2-3 hours when in the sun continuously. Patient is instructed to perform regular self exams. Observe for changing, symptomatic, or new skin lesions and seek care with the patient's primary care provider or with dermatology if any lesions of concern are noted Hx of nonmelanoma skin cancer Diffuse photodamage of skin (9) Chest (Upper Torso, Anterior); Abdomen (Lower Torso, Anterior); Torso - Posterior (Back); Head; Left Arm; Right Arm; Left Leg; Right Leg; Neck Diffuse photodamage of skin Sun protection and avoidance discussed with patient Blue nevus Left Parietal Scalp Continue to monitor FOLLOW UP: 6 month(s).skin check The documentation for this note was completed by Shania Cuenca LPN acting as scribe for Leighton Ward MD. August 24, 2023 7:26 AM. The HPI, PMH, EXAM, Findings/plan that were documented by my electrician's assistant, who was scribing during the encounter, were confirmed by me and I agree with the content of these sections. I have made any required additions or deletions to the HPI/PFSH/exam/findings/plan as needed. The physical exam and any procedures were performed by me, unless otherwise noted. Leighton Ward MD Medical Decision Making: Problems: Low: 2+ self-limited or minor problems Risk: Low: Low risk from testing/treatment Medical Decision Making Level: 3 - Low [facility] 08-24-2023 History of Present illness Narrative Patient returns for follow up skin check Last visit was 6 months ago. 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 04/20/2021 Family History: no NEW COMPLAINTS: no new areas MEDICAL HX: Kidney stone PHYSICAL EXAM: The patient is pleasant, oriented x 3, in no acute distress. Exam performed of the scalp, face, neck, chest, back, abdomen, arms, legs, and buttock. Significant findings noted below, otherwise no suspicious lesions noted at this time. Arms and Legs, Photodistributed, Scalp, Trunk Findings as follows: Abdomen (Lower Torso, Anterior), Chest (Upper Torso, Anterior), Head, Left Arm, Left Leg, Neck, Right Arm, Right Leg, Torso - Posterior (Back) Diffusely scattered reed macules and patches on sun exposed areas. Left Parietal Scalp 4 x 4 bluish hernandez macule IMPRESSION/PLAN: Skin exam, screening for cancer (4) Scalp; Trunk; Photodistributed; Arms and Legs The nature of sun-induced photo-aging and skin cancers is discussed. Sun avoidance, protective clothing, and the use of 30-SPF or higher sunscreens is advised. Must be used every 2-3 hours when in the sun continuously. Patient is instructed to perform regular self exams. Observe for changing, symptomatic, or new skin lesions and seek care with the patient's primary care provider or with dermatology if any lesions of concern are noted Hx of nonmelanoma skin cancer Diffuse photodamage of skin (9) Chest (Upper Torso, Anterior); Abdomen (Lower Torso, Anterior); Torso - Posterior (Back); Head; Left Arm; Right Arm; Left Leg; Right Leg; Neck Diffuse photodamage of skin Sun protection and avoidance discussed with patient Blue nevus Left Parietal Scalp Continue to monitor FOLLOW UP: 6 month(s).skin check The documentation for this note was completed by Shania Cuenca LPN acting as scribe for Leighton Ward MD. August 24, 2023 7:26 AM. The HPI, PMH, EXAM, Findings/plan that were documented by my electrician's assistant, who was scribing during the encounter, were confirmed by me and I agree with the content of these sections. I have made any required additions or deletions to the HPI/PFSH/exam/findings/plan as needed. The physical exam and any procedures were performed by me, unless otherwise noted. Leighton Ward MD Medical Decision Making: Problems: Low: 2+ self-limited or minor problems Risk: Low: Low risk from testing/treatment Medical Decision Making Level: 3 - Low documented in this encounter [place] 08-23-2023 Telephone encounter Note Spoke with patient message relayed, patient voiced understanding regarding scheduling the US, KUB and appt with Dr. Tinoco. All questions answered. Patient told he can also follow up with Rock Baldwin as needed. [place] 08-23-2023 Miscellaneous Notes Spoke with patient message relayed, patient voiced understanding regarding scheduling the US, KUB and appt with Dr. Tinoco. All questions answered. Patient told he can also follow up with Rock Baldwin as needed. Please let patient know I spoke with Dr. Tinoco at [facility] and he would like him to have a KUB and Renal US done now and then will review those. He says his office appt wait is almost 3-4 mo, which he needs so schedule it, but he says his OR schedule is more flexible, so he recommend continued follow- up with me, but if stone becomes obstructed we just need to let him know and he can schedule urgent stone removal surgery or Lithotripsy. Orders are in from imaging and van do them this week ANNABELLE Navarrete MT, PA-C documented in this encounter [place] 08-23-2023 Telephone encounter Note Please let patient know I spoke with Dr. Tinoco at [facility] and he would like him to have a KUB and Renal US done now and then will review those. He says his office appt wait is almost 3-4 mo, which he needs so schedule it, but he says his OR schedule is more flexible, so he recommend continued follow- up with me, but if stone becomes obstructed we just need to let him know and he can schedule urgent stone removal surgery or Lithotripsy. Orders are in from imaging and van do them this week ANNABELLE Navarrete MT, PA-C [place] 08-17-2023 Note HNO ID: [id number] Author: ROCK BALDWIN PA-C Service: ? Author Type: Physician International Logistics Manager Type: Progress Notes Filed: 08/17/2023 14:57 Note Text: [facility] NEW PATIENT CLINIC NOTE SERVICE DATE: August 17, 2023 NAME: Curtis Guerrier CHIEF COMPLAINT: Nephrolithiasis HISTORY OF PRESENT ILLNESS: Curtis Guerrier is a 73 year old male an established patient following up for Nephrolithiasis The patient reports having new CT Flank imaging showing a non-obstructing stone on 4-5 mm on in right kidney Has been on Flomax before when he had a left side stone in 2019, his is not certain if he passed the stone or not , but less pressure and no flank pain Recommended continue Flomax and strain urine, he ended having a lithotripsy for the right side , and would like to establish with a staff Urologist So if he needs this again he is can just follow-up, I sent request message for consult with Dr. Tinoco Refilled the Flomax and gave him a strainer x 2, will also get a new Renal US in the next 2-3 weeks to see if he has passed it LUTS: DYSURIA: no URGENCY: Yes FREQUENCY:4 per day NOCTURIA: 1 per night STRAINING TO VOID: No EMPTIES COMPLETELY: Yes UTI: No GROSS HEMATURIA: yes UA DIPSTICK POSITIVE ONLY: no Other symptoms: LABS: PSA (ng/mL) Date Value 05/22/2019 1.42 08/22/2018 1.33 09/29/2017 1.48 PSA Screening (ng/mL) Date Value 11/09/2022 1.29 11/12/2021 1.26 10/11/2020 1.12 Testosterone (ng/dL) Date Value 05/13/2021 194 10/11/2020 185 10/11/2012 381 Hematocrit (%) Date Value 08/04/2023 46.9 11/09/2022 44.2 11/12/2021 43.9 05/13/2021 45.7 10/11/2020 49.0 04/07/2020 44.5 PSA (ng/mL) Date Value 05/22/2019 1.42 08/22/2018 1.33 09/29/2017 1.48 PSA Screening (ng/mL) Date Value 11/09/2022 1.29 11/12/2021 1.26 10/11/2020 1.12 Creatinine Date Value Ref Range Status 08/04/2023 0.99 0.73 - 1.22 mg/dL Final 11/09/2022 0.97 0.73 - 1.22 mg/dL Final 11/12/2021 0.85 0.73 - 1.22 mg/dL Final MEDICATIONS: omeprazole (PRILOSEC) 20 mg capsule Take 1 capsule by mouth once daily. losartan (COZAAR) 100 mg tablet Take 1 tablet by mouth once daily. sildenafil (VIAGRA) 50 mg tablet Take 1 tablet by mouth as needed. rosuvastatin (CRESTOR) 40 mg tablet Take 1 tablet by mouth daily at bedtime. metoprolol tartrate, short acting, (LOPRESSOR) 50 mg tablet Take 1 tablet by mouth two times a day. albuterol HFA (PROVENTIL HFA, VENTOLIN HFA) 90 mcg/actuation inhaler Inhale 2 Puffs as instructed every 6 hours as needed for wheezing/shortness of breath. apixaban (ELIQUIS) 5 mg tab(s) Take 1 tablet by mouth twice daily. acetaminophen (TYLENOL ORAL) Take by mouth as needed. amLODIPine (NORVASC) 2.5 mg tablet Take 1 tablet by mouth once daily. Per Dr. Dietz aspirin 81 mg chewable tablet Take 1 tablet by mouth once daily. therapeutic multivitamin (THERA VITAMIN) tablet Take 1 tablet by mouth daily with breakfast. [START ON 09/05/2023] tamsulosin (FLOMAX) 0.4 mg Take 1 capsule by mouth daily at bedtime. Patient should start on September 05, 2023. 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 ENMT: Negative CARDIOVASCULAR:NO CHEST PAIN, PALPITATIONS, ANKLE EDEMA RESPIRATORY: No chronic cough, wheezing, dyspnea, hemoptysis. GENITOURINARY: SEE HPI MUSCULOSKELETAL:NO CHRONIC BACK PAIN, ARTHRITIS, CHRONIC NECK PAIN SKIN: NO VARICOSE VEINS, RASH, ABNORMAL ITCHING HEME/LYMPH/IMMUNE:Negative for prolonged bleeding, bruising easily or swollen nodes NEUROLOGICAL: NO HEADACHES, NUMBNESS, SEIZURES, STROKE DIABETES: No All other systems reviewed and are negative PHYSICAL EXAMINATION: There were no vitals taken for this visit. GENERAL: WNL nutrition, no deformities, healthy appearing NEURO: Awake, alert and oriented x 3 and Normal gait PSYCH: No signs of depression, anxiety, or agitation ENMT (Ear, Nose, Mouth, Throat): No masses, adenopathy, icterus. Thyroid nonpalpable RESP: NL effort, no retractions or purse-lip breathing. CV: No extrem (more content not included)... [facility] 08-17-2023 History of Present illness Narrative Images from the original note were not included. [facility] NEW PATIENT CLINIC NOTE SERVICE DATE: August 17, 2023 NAME: Curtis Guerrier CHIEF COMPLAINT: Nephrolithiasis HISTORY OF PRESENT ILLNESS: Curtis Guerrier is a 73 year old male an established patient following up for Nephrolithiasis The patient reports having new CT Flank imaging showing a non-obstructing stone on 4-5 mm on in right kidney Has been on Flomax before when he had a left side stone in 2019, his is not certain if he passed the stone or not , but less pressure and no flank pain Recommended continue Flomax and strain urine, he ended having a lithotripsy for the right side , and would like to establish with a staff Urologist So if he needs this again he is can just follow-up, I sent request message for consult with Dr. Tinoco Refilled the Flomax and gave him a strainer x 2, will also get a new Renal US in the next 2-3 weeks to see if he has passed it LUTS: DYSURIA: no URGENCY: Yes FREQUENCY:4 per day NOCTURIA: 1 per night STRAINING TO VOID: No EMPTIES COMPLETELY: Yes UTI: No GROSS HEMATURIA: yes UA DIPSTICK POSITIVE ONLY: no Other symptoms: LABS: PSA (ng/mL) Date Value 05/22/2019 1.42 08/22/2018 1.33 09/29/2017 1.48 PSA Screening (ng/mL) Date Value 11/09/2022 1.29 11/12/2021 1.26 10/11/2020 1.12 Testosterone (ng/dL) Date Value 05/13/2021 194 10/11/2020 185 10/11/2012 381 Hematocrit (%) Date Value 08/04/2023 46.9 11/09/2022 44.2 11/12/2021 43.9 05/13/2021 45.7 10/11/2020 49.0 04/07/2020 44.5 PSA (ng/mL) Date Value 05/22/2019 1.42 08/22/2018 1.33 09/29/2017 1.48 PSA Screening (ng/mL) Date Value 11/09/2022 1.29 11/12/2021 1.26 10/11/2020 1.12 Creatinine Date Value Ref Range Status 08/04/2023 0.99 0.73 - 1.22 mg/dL Final 11/09/2022 0.97 0.73 - 1.22 mg/dL Final 11/12/2021 0.85 0.73 - 1.22 mg/dL Final MEDICATIONS: omeprazole (PRILOSEC) 20 mg capsule Take 1 capsule by mouth once daily. losartan (COZAAR) 100 mg tablet Take 1 tablet by mouth once daily. sildenafil (VIAGRA) 50 mg tablet Take 1 tablet by mouth as needed. rosuvastatin (CRESTOR) 40 mg tablet Take 1 tablet by mouth daily at bedtime. metoprolol tartrate, short acting, (LOPRESSOR) 50 mg tablet Take 1 tablet by mouth two times a day. albuterol HFA (PROVENTIL HFA, VENTOLIN HFA) 90 mcg/actuation inhaler Inhale 2 Puffs as instructed every 6 hours as needed for wheezing/shortness of breath. apixaban (ELIQUIS) 5 mg tab(s) Take 1 tablet by mouth twice daily. acetaminophen (TYLENOL ORAL) Take by mouth as needed. amLODIPine (NORVASC) 2.5 mg tablet Take 1 tablet by mouth once daily. Per Dr. Dietz aspirin 81 mg chewable tablet Take 1 tablet by mouth once daily. therapeutic multivitamin (THERA VITAMIN) tablet Take 1 tablet by mouth daily with breakfast. [START ON 09/05/2023] tamsulosin (FLOMAX) 0.4 mg Take 1 capsule by mouth daily at bedtime. Patient should start on September 05, 2023. PAST MEDICAL HISTORY: PAST MEDICAL HISTORY Diagnosis Date Acute deep vein thrombosis (DVT) of right lower extremity (HCC) 09/27/2017 Arthritis BPH (benign prostatic hypertrophy) with urinary obstruction 10/10/2013 Calculus of kidney Coronary artery disease 2016 Stent 1 Diverticulitis Essential hypertension, benign GERD (gastroesophageal reflux disease) History of coronary artery stent placement 2016 Hypercalciuria 06/26/2012 Hypercholesterolemia Hyperlipidemia LDL goal < 100 04/17/2013 Other and unspecified hyperlipidemia Prostatic hypertrophy 2016 benign with outflow obstruction S/P CABG x 4 05/04/2017 [employer] workers comp claim Severe obesity with body mass index (BMI) of 35.0 to 35.9 and comorbidity (HCC) Snoring no JONAH Squamous cell skin cancer 05/13/2021 Stroke [facility] REVIEW OF SYSTEMS: GENERAL: No fever, chills, weight loss, or fatigue. ENMT: Negative CARDIOVASCULAR:NO CHEST PAIN, PALPITATIONS, ANKLE EDEMA RESPIRATORY: No chronic cough, wheezing, dyspnea, hemoptysis. GENITOURINARY: SEE HPI MUSCULOSKELETAL:NO CHRONIC BACK PAIN, ARTHRITIS, CHRONIC NECK PAIN SKIN: NO VARICOSE VEINS, RASH, ABNORMAL ITCHING HEME/LYMPH/IMMUNE:Negative for prolonged bleeding, bruising easily or swollen nodes NEUROLOGICAL: NO HEADACHES, NUMBNESS, SEIZURES, STROKE DIABETES: No All other systems reviewed and are negative PHYSICAL EXAMINATION: There were no vitals taken for this visit. GENERAL: WNL nutrition, no deformities, healthy appearing NEURO: Awake, alert and oriented x 3 and Normal gait PSYCH: No signs of depression, anxiety, or agitation ENMT (Ear, Nose, Mouth, Throat): No masses, adenopathy, icterus. Thyroid nonpalpable RESP: NL effort, no retractions or purse-lip breathing. CV: No extremity swelling, varices, edema, pallor, erythema GASTROINTESTINAL: Soft, nontender, nondistended, no masses. HERNIAS: None SKIN: No rash, lesions No palpable lymphadenopathy MUSCULOSKELETAL: Extremities normal. No deformities, edema, clubbing or skin discoloration. PROBLEM LIST REVIEW: Yes LABS: Results for orders placed or performed in visit on 08/17/23 UA DIP, URINE (POC) Result Value Ref Range GLUCOSE UA (POCT) Negative Negative mg/dL BILIRUBIN UA (POCT) Negative Negative KETONE UA (POCT) Negative Negative mg/dL SPECIFIC GRAVITY UA (POCT) 1.020 1.005 - 1.030 HEMOGLOBIN/BLOOD UA (POCT) Negative Negative PH UA (POCT) 7.0 4.5 - 8.0 PROTEIN UA (POCT) Negative Negative mg/dL UROBILINOGEN UA (POCT) 0.2 Normal E.U./dL NITRITE UA (POCT) Negative Negative LEUKOCYTES UA (POCT) Trace (A) Negative COLOR UA (POCT) Dark yellow CLARITY UA (POCT) Clear CT Flank RESULT: Abdomen / Pelvis: Kidneys/ureters/bladder/prostate: 3 x 5 mm nonobstructing stone upper pole right kidney. No ureteral or bladder stones. No hydronephrosis. Bladder wall thickening. Benign intramural fat and anterior bladder wall. Coarse prostate calcifications. No mass or hydronephrosis. Liver: No mass. _ Biliary: No bile duct dilation. Spleen: No mass. No splenomegaly. Pancreas: No mass or duct dilation. Adrenals: No mass. GI tract: No dilation or wall thickening. Diverticulosis without diverticulitis. Distal sigmoid anastomosis. Normal appendix. Lymph nodes: No abdominal or pelvic lymphadenopathy. Mesentery/Peritoneum: No ascites or mass. Retroperitoneum: No mass. Vasculature: No abdominal aortic or iliac artery aneurysm. Pelvis: No mass, ascites or fluid collection. Bones/Soft Tissues: No significant finding. Postoperative changes of right inguinal hernia repair with mesh. Lower thorax: Left lower lobe scarring and atelectasis. IMPRESSION/PLAN: 73 year old male with 1. Kidney stone on right side - ICD9: 592.0, ICD10: N20.0 (primary diagnosis) 2. Flank pain - ICD9: 789.09, ICD10: R10.9 > Renal US > Flomax > Urine strainer 3. Screening for genitourinary condition - ICD9: V81.6, ICD10: Z13.89 > Chronic Conditions: Progressing and Worseninm, Worsening, Resolved needs monitored with labs and follow-up visits > Testing Recommendations: Ordered today; To be determined after final test results ANNABELLE Navarrete, MT, MAMTA documented in this encounter [place] 08-17-2023 Instructions Rock Baldwin PA-C - 08/17/2023 9:34 AM EDT > Continue Flomax daily for 2 months > Get Renal US in 2-3 weeks > Consult requested with Dr. Tinoco > Strainer given if he hac collect stone documented in this encounter [place] 08-17-2023 Nurse Note PVR = 0 ML [place] 08-17-2023 Nurse Note PVR = 0 ML documented in this encounter [place] 08-05-2023 Telephone encounter Note Pt notified. He verbalized understanding. Schedulers please assist pt with scheduling Urology appt. Karl Hallman LPN [place] 08-05-2023 Miscellaneous Notes Pt notified. He verbalized understanding. Schedulers please assist pt with scheduling Urology appt. Karl Hallman LPN Patient's CT scan confirms 3 x 5 mm nonobstructing stone in his right kidney. No stones in the ureter or bladder. No fluid backing up into kidneys. With persistent pain without obstructing stone, would recommend referral to urology to discuss treatment options. Continue flomax and push PO fluids. documented in this encounter [place] 08-05-2023 Telephone encounter Note Patient's CT scan confirms 3 x 5 mm nonobstructing stone in his right kidney. No stones in the ureter or bladder. No fluid backing up into kidneys. With persistent pain without obstructing stone, would recommend referral to urology to discuss treatment options. Continue flomax and push PO fluids. [place] 08-04-2023 History of Present illness Narrative Radiology Service Progress Note PATIENT NAME: Curtis Guerrier DATE OF SERVICE: August 04, 2023 TIME: 5:00 PM PATIENT IDENTITY VERIFICATION COMPLETED USING TWO (2) IDENTIFIERS: Name and Date of confirmed by patient verbally. FALL SCREENING: Has the patient had 2 falls in the last year or 1 fall with injury or currently using an Ambulatory Assistive Device (Walker, Cane, Wheelchair, Crutches, etc.)? No PATIENT GENDER DATA: Male PATIENT RELEVANT IMPLANT DATA REVIEWED: Not Applicable PATIENT PRESENTS WITH AN IMPLANTABLE OR ATTACHED PAYROLL ACCOUNTING MANAGER: No RADIOLOGY DEPARTMENT: CT; Exam(s) Completed: Abdomen/Pelvis PERIPHERAL IV DATA: Not applicable SIGNED BY: KEON Chun August 04, 2023 5:00 PM documented in this encounter [place] 08-04-2023 Note HNO ID: [id number] Author: CRISTIAN WAY CT Service: Radiology Author Type: Technologist Type: Progress Notes Filed: 08/04/2023 17:05 Note Text: Radiology Service Progress Note PATIENT NAME: Curtis Guerrier DATE OF SERVICE: August 04, 2023 TIME: 5:00 PM PATIENT IDENTITY VERIFICATION COMPLETED USING TWO (2) IDENTIFIERS: Name and Date of confirmed by patient verbally. FALL SCREENING: Has the patient had 2 falls in the last year or 1 fall with injury or currently using an Ambulatory Assistive Device (Walker, Cane, Wheelchair, Crutches, etc.)? No PATIENT GENDER DATA: Male PATIENT RELEVANT IMPLANT DATA REVIEWED: Not Applicable PATIENT PRESENTS WITH AN IMPLANTABLE OR ATTACHED PAYROLL ACCOUNTING MANAGER: No RADIOLOGY DEPARTMENT: CT; Exam(s) Completed: Abdomen/Pelvis PERIPHERAL IV DATA: Not applicable SIGNED BY: KEON Chun August 04, 2023 5:00 PM [facility] 08-04-2023 Note HNO ID: [id number] Author: JAIR FIELDS MD Service: ? Author Type: Physician Type: Progress Notes Filed: 08/04/2023 14:46 Note Text: Chief Complaint Patient presents with: Back Pain: Intermittent x 1 month right sided HPI Curtis Guerrier is a 73 year old male who presents here today for Above Complaints.. Patient states that he has history of kidney stones which he is usually able to pass on his own. In the last month he has been getting intermittent pain in his right flank and had anjali colored urine about 2 weeks ago which lasted a couple of days. Pain described as stabbing, up to 8/10 without radiation. Pain is worse at night than during the day. Denies exacerbating symptoms. Treating with tylenol which does take the edge off. Denies fever/chills, nausea, vomiting, abdominal pain, dysuria, frequency, urgency, hesitancy. Past medical history, appointments, medications, allergies reviewed. 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 [employer] workers comp claim Severe obesity with body mass index (BMI) of 35.0 to 35.9 and comorbidity (HCC) (HCC) Snoring no JONAH Squamous cell skin cancer 05/13/2021 Stroke ([facility] Previous Surgical History PAST SURGICAL HISTORY Procedure Laterality Date BACK SURGERY HX CABG (4) VEIN GRAFTS AND ARTERIAL GRAFT(S) 10/2016 COLON SURGERY HX COLONOSCOPY 05/28/2014 Diverticular disease- repeat in 2024 COLONOSCOPY FLX DX W/COLLJ SPEC WHEN PFRMD 02/12/2002 Colonoscopy-repeat in COLONOSCOPY FLX DX W/COLLJ SPEC WHEN PFRMD 04/26/2017 Colonoscopy ESOPHAGOGASTRODUODENOSCOPY TRANSORAL DIAGNOSTIC 04/26/2017 EGD EYE SURGERY HX FISSURECTOMY INCL SPHINCTEROTOMY WHEN PERFORMED HEART SURGERY HX HERNIA REPAIR HX LAPS COLECTOMY PRTL W/COLOPXTSTMY LW ANAST 04/14/2016 with mobilization of splenic flexure for diverticulitis PAST SURGICAL HISTORY OF 1982 lower back herniated disc PAST SURGICAL HISTORY OF 2005 low back surgery PAST SURGICAL HISTORY OF 04/04/2015 cardiac stent insertion PAST SURGICAL HISTORY OF 03/2016 colon resection REVISE MEDIAN N/CARPAL TUNNEL SURG Bilateral 06/12/2020 Bilateral carpal tunnel release RPR 1ST INGUN HRNA AGE 5 YRS/> REDUCIBLE Hernia repair, inguinal w/ mesh - right TONSILLECTOMY PRIMARY/SECONDARY Tonsillectomy Family History FAMILY HISTORY Problem Relation Age of Onset Heart Mother from CVA at age 75, CABG Hypertension Father Prostate Cancer Brother Coronary Artery Disease Brother stents other (pancreatic cancer) Sister Coronary Artery Disease Sister Coronary Artery Disease Sister Cancer Maternal Grandmother Parkinson?s Disease Maternal Grandfather Cancer Paternal Grandfather Patient Allergies ALLERGIES Allergen Reactions Iv Contrast [Iodine] Angioedema IV contrast 06/01/2019 Lipitor [Atorvastat* myalgia Lovastatin myalgia Qusdgro-Nar-Wem Red* Other: See Comments, Myalgia sore joints and muscles Current Medications Current Outpatient Medications on File Prior to Visit Medication Sig omeprazole (PRILOSEC) 20 mg capsule Take 1 capsule by mouth once daily. losartan (COZAAR) 100 mg tablet Take 1 tablet by mouth once daily. sildenafil (VIAGRA) 50 mg tablet Take 1 tablet by mouth as needed. rosuvastatin (CRESTOR) 40 mg tablet Take 1 tablet by mouth daily at bedtime. metoprolol tartrate, short acting, (LOPRESSOR) 50 mg tablet Take 1 tablet by mouth two times a day. albuterol HFA (PROVENTIL HFA, VENTOLIN HFA) 90 mcg/actuation inhaler Inhale 2 Puffs as instructed every 6 hours as needed for wheezing/shortness of breath. apixaban (ELIQUIS) 5 mg tab(s) Take 1 tablet by mouth twice daily. acetaminophen (TYLENOL ORAL) Take by mouth as needed. amLODIPine (NORVASC) 2.5 mg tablet Take 1 tablet by mouth once daily. Per Dr. Dietz aspirin 81 mg chewable tablet Take 1 tablet by mouth once daily. therapeutic multivitamin (THERA VITAMIN) tablet Take 1 tablet by mouth daily with breakfast. No current facility-administered medications on file prior to visit. Social History Social History Tobacco Use Smoking status: Former Types: Cigarettes Quit date: 06/18/1987 Years since quittin.1 Smokeless tobacco: Never Tobacco comments: quit smoking 1987 Vaping Use Vaping Use: Never used Substance Use Topics Alcohol use: Yes Comment: 1g (more content not included)... [facility] 08-04-2023 History of Present illness Narrative Chief Complaint Patient presents with: Back Pain: Intermittent x 1 month right sided HPI Curtis Guerrier is a 73 year old male who presents here today for Above Complaints.. Patient states that he has history of kidney stones which he is usually able to pass on his own. In the last month he has been getting intermittent pain in his right flank and had anjali colored urine about 2 weeks ago which lasted a couple of days. Pain described as stabbing, up to 8/10 without radiation. Pain is worse at night than during the day. Denies exacerbating symptoms. Treating with tylenol which does take the edge off. Denies fever/chills, nausea, vomiting, abdominal pain, dysuria, frequency, urgency, hesitancy. Past medical history, appointments, medications, allergies reviewed. Previous Medical History PAST MEDICAL HISTORY Diagnosis Date Acute deep vein thrombosis (DVT) of right lower extremity (HCC) 09/27/2017 Arthritis BPH (benign prostatic hypertrophy) with urinary obstruction 10/10/2013 Calculus of kidney Coronary artery disease 2016 Stent 1 Diverticulitis Essential hypertension, benign GERD (gastroesophageal reflux disease) History of coronary artery stent placement 2016 Hypercalciuria 06/26/2012 Hypercholesterolemia Hyperlipidemia LDL goal < 100 04/17/2013 Other and unspecified hyperlipidemia Prostatic hypertrophy 2016 benign with outflow obstruction S/P CABG x 4 05/04/2017 [employer] workers comp claim Severe obesity with body mass index (BMI) of 35.0 to 35.9 and comorbidity (HCC) (HCC) Snoring no JONAH Squamous cell skin cancer 05/13/2021 Stroke (HCC) Previous Surgical History PAST SURGICAL HISTORY Procedure Laterality Date BACK SURGERY HX CABG (4) VEIN GRAFTS & ARTERIAL GRAFT(S) 10/2016 COLON SURGERY HX COLONOSCOPY 05/28/2014 Diverticular disease- repeat in 2024 COLONOSCOPY FLX DX W/COLLJ SPEC WHEN PFRMD 02/12/2002 Colonoscopy-repeat in COLONOSCOPY FLX DX W/COLLJ SPEC WHEN PFRMD 04/26/2017 Colonoscopy ESOPHAGOGASTRODUODENOSCOPY TRANSORAL DIAGNOSTIC 04/26/2017 EGD EYE SURGERY HX FISSURECTOMY INCL SPHINCTEROTOMY WHEN PERFORMED HEART SURGERY HX HERNIA REPAIR HX LAPS COLECTOMY PRTL W/COLOPXTSTMY LW ANAST 04/14/2016 with mobilization of splenic flexure for diverticulitis PAST SURGICAL HISTORY OF 1982 lower back herniated disc PAST SURGICAL HISTORY OF 2005 low back surgery PAST SURGICAL HISTORY OF 04/04/2015 cardiac stent insertion PAST SURGICAL HISTORY OF 03/2016 colon resection REVISE MEDIAN N/CARPAL TUNNEL SURG Bilateral 06/12/2020 Bilateral carpal tunnel release RPR 1ST INGUN HRNA AGE 4 YRS/> REDUCIBLE Hernia repair, inguinal w/ mesh - right TONSILLECTOMY PRIMARY/SECONDARY <AGE 11 Tonsillectomy Family History FAMILY HISTORY Problem Relation Age of Onset Heart Mother from CVA at age 75, CABG Hypertension Father Prostate Cancer Brother Coronary Artery Disease Brother stents other (pancreatic cancer) Sister Coronary Artery Disease Sister Coronary Artery Disease Sister Cancer Maternal Grandmother Parkinson s Disease Maternal Grandfather Cancer Paternal Grandfather Patient Allergies ALLERGIES Allergen Reactions Iv Contrast [Iodine] Angioedema IV contrast 06/01/2019 Lipitor [Atorvastat* myalgia Lovastatin myalgia [facility]lzz-H[facility] Red* Other: See Comments, Myalgia sore joints and muscles Current Medications Current Outpatient Medications on File Prior to Visit Medication Sig omeprazole (PRILOSEC) 20 mg capsule Take 1 capsule by mouth once daily. losartan (COZAAR) 100 mg tablet Take 1 tablet by mouth once daily. sildenafil (VIAGRA) 50 mg tablet Take 1 tablet by mouth as needed. rosuvastatin (CRESTOR) 40 mg tablet Take 1 tablet by mouth daily at bedtime. metoprolol tartrate, short acting, (LOPRESSOR) 50 mg tablet Take 1 tablet by mouth two times a day. albuterol HFA (PROVENTIL HFA, VENTOLIN HFA) 90 mcg/actuation inhaler Inhale 2 Puffs as instructed every 6 hours as needed for wheezing/shortness of breath. apixaban (ELIQUIS) 5 mg tab(s) Take 1 tablet by mouth twice daily. acetaminophen (TYLENOL ORAL) Take by mouth as needed. amLODIPine (NORVASC) 2.5 mg tablet Take 1 tablet by mouth once daily. Per Dr. Dietz aspirin 81 mg chewable tablet Take 1 tablet by mouth once daily. therapeutic multivitamin (THERA VITAMIN) tablet Take 1 tablet by mouth daily with breakfast. No current facility-administered medications on file prior to visit. Social History Social History Tobacco Use Smoking status: Former Types: Cigarettes Quit date: 06/18/1987 Years since quittin.1 Smokeless tobacco: Never Tobacco comments: quit smoking 1987 Vaping Use Vaping Use: Never used Substance Use Topics Alcohol use: Yes Comment: 1glass of wine a day Drug use: No Review of Symptoms REVIEW OF SYSTEMS See HPI EXAM: BP 146/72 Pulse (!) 56 Temp 36.3 C (97.3 F) Resp 18 Wt 98.9 kg (218 lb) BMI 36.28 kg/m General Appearance: Well appearing, alert, in no acute distress, well-hydrated, well nourished.. Skin: Skin color, texture, turgor normal, no suspicious rashes or lesions. Back:no pain to palpation of vertebrae, good flexion and extension, good range of motion, no muscle tenderness, reflexes are 2+ and symmetric, motor and sensory appear to be normal, negative SLR test, no evidence of scoliosis Abdomen: Normal abdominal exam, Abdomen soft, non-tender. Bowel sounds normal. No masses, organomegaly, Negative CVA tenderness. Health Maintenance List LDL Cholesterol due on 11/10/2023 Annual PCP Team Chronic Disease Visit due on 05/18/2024 BP Controlled (<130/80) due on 05/18/2024 Diabetes Screening due on 11/09/2025 Colorectal Cancer Screening due on 04/26/2027 DTaP,Tdap,Td Vaccine(3 - Td or Tdap) due on 05/04/2027 Lipid Screening due on 11/10/2027 Abdominal Aortic Aneurysm Screening Completed Influenza Vaccine Completed Advance Directive Discussion Completed Behavioral Health Screening Completed RSV Vaccine Completed Hepatitis C Screening Completed Shingrix Vaccine Completed Covid-19 Vaccine Completed Pneumococcal Vaccine: 65+ Completed Data reviewed Latest Ref Rng 08/04/2023 GLUCOSE UA (POCT) Negative mg/dL Negative BILIRUBIN UA (POCT) Negative Negative KETONE UA (POCT) Negative mg/dL Negative SPECIFIC GRAVITY UA (POCT) 1.005 - 1.030 1.020 HEMOGLOBIN/BLOOD UA (POCT) Negative Negative PH UA (POCT) 4.5 - 8.0 7.0 PROTEIN UA (POCT) Negative mg/dL Negative UROBILINOGEN UA (POCT) Normal E.U./dL 0.2 NITRITE UA (POCT) Negative Negative LEUKOCYTES UA (POCT) Negative Moderate ! COLOR UA (POCT) Yellow CLARITY UA (POCT) Clear Legend: ! Abnormal ASSESSMENT/PLAN: 1. Flank pain - ICD9: 789.09, ICD10: R10.9 (primary diagnosis) Suspect 2/[address]. Will obtain STAT CT flank and labs as ordered. Push PO fluids. Start flomax. Will call with results and recommendations. Red flags for re-assessment reviewed with patient in detail. - UA DIP, URINE (POC) - CT FLANK WO IVCON - COMPLETE BLOOD COUNT AND DIFFERENTIAL - COMPREHENSIVE METABOLIC PANEL 2. Gross hematuria - ICD9: 599.71, ICD10: R31.0 See above. - CT FLANK WO IVCON - COMPLETE BLOOD COUNT AND DIFFERENTIAL - COMPREHENSIVE METABOLIC PANEL Medical Decision Making: Problems: Moderate: New problem with uncertain prognosis Data: Unique test result(s) reviewed: 1 Unique test(s) ordered: 3+ Risk: Moderate: Moderate risk from testing/treatment Medical Decision Making Level: 4 - Moderate Jair Fields MD documented in this encounter [place] 06-06-2023 Miscellaneous Notes Patient has been identified by name and date of : Yes, Patient phones for refill(s): Requested Prescriptions Pending Prescriptions Disp Refills omeprazole (PRILOSEC) 20 mg capsule 90 capsule 1 Sig: Take 1 capsule by mouth once daily. losartan (COZAAR) 100 mg tablet 90 tablet 3 Sig: Take 1 tablet by mouth once daily. Date of last office visit in primary care: 05/18/2023 Date of next office visit in primary care: 11/30/2023 Please advise. Thank you. Elaina Blevins LPN. documented in this encounter [place] 06-06-2023 Miscellaneous Notes Patient has been identified by name and date of : Yes Patient phones for refill(s): Requested Prescriptions Pending Prescriptions Disp Refills sildenafil (VIAGRA) 50 mg tablet 30 tablet 5 Sig: Take 1 tablet by mouth as needed. Date of last office visit in primary care: 05/18/2023 Date of next office visit in primary care: 11/30/2023 Please advise. Thank you. Elaina Blevins LPN. documented in this encounter [place] 05-18-2023 History of Present illness Narrative Patient presents with: 6 Month Exam HPI: Patient presents today for office visit for follow up. HTN: Patient is compliant with meds Yes Monitors bp at home: 3-4 times per week. Is varying a little more than he likes. Has upcoming appt with cardio. -will be switching to cardiology. Denies side effects: Yes. Chest pain: No. Dyspnea: No. Edema: No. Palpitations: No. Syncope: No. Headache: No. Dizziness: No. No myalgias. No bleeding issues. No black or bloody stools. GERD:only uses omeprazole tid. DERM:follows with derm. Rarely used albuterol. Component Latest Ref Rng & Units 11/09/2022 WBC 3.70 - 11.00 k/uL 5.22 RBC 4.20 - 6.00 m/uL 4.68 Hemoglobin 13.0 - 17.0 g/dL 14.8 Hematocrit 39.0 - 51.0 % 44.2 MCV 80.0 - 100.0 fL 94.4 MCH 26.0 - 34.0 pg 31.6 MCHC 30.5 - 36.0 g/dL 33.5 RDW-CV 11.5 - 15.0 % 13.2 Platelet Count 150 - 400 k/uL 201 MPV 9.0 - 12.7 fL 10.6 Neut% % 53.6 Abs Neut (ANC) 1.45 - 7.50 k/uL 2.80 Lymph% % 33.3 Abs Lymph 1.00 - 4.00 k/uL 1.74 [place]% % 9.8 Abs [place] <0.87 k/uL 0.51 Eosin% % 2.3 Abs Eosin <0.46 k/uL 0.12 Baso% % 0.8 Abs Baso <0.11 k/uL 0.04 Immature Gran % % 0.2 IMMATURE GRANS (ABS) <0.10 k/uL <0.03 NRBC /100 WBC 0.0 Absolute nRBC <0.01 k/uL <0.01 DTYPE Auto Protein, Total 6.3 - 8.0 g/dL 6.7 Albumin 3.9 - 4.9 g/dL 4.2 Calcium 8.5 - 10.2 mg/dL 9.0 Bilirubin, Total 0.2 - 1.3 mg/dL 0.8 Alkaline Phosphatase 38 - 113 U/L 60 AST 14 - 40 U/L 15 ALT 10 - 54 U/L 11 Glucose 74 - 99 mg/dL 93 BUN 9 - 24 mg/dL 16 Creatinine 0.73 - 1.22 mg/dL 0.97 Sodium 136 - 144 mmol/L 138 Potassium 3.7 - 5.1 mmol/L 4.1 Chloride 97 - 105 mmol/L 102 CO2 22 - 30 mmol/L 23 Anion Gap 9 - 18 mmol/L 13 eGFR >=60 mL/min/1.73m 82 Cholesterol, Total <200 mg/dL 145 Triglyceride <150 mg/dL 117 HDL Cholesterol >39 mg/dL 47 Non HDL Cholesterol <130 mg/dL 98 Fasting Time hrs 14 VLDL Cholesterol <30 mg/dL 23 TC:HDL Ratio <5.10 3.09 LDL Cholesterol <100 mg/dL 75 LDL:HDL Ratio <2.54 1.60 PSA Screening <2.60 ng/mL 1.29 MEDICATIONS: Current Outpatient Medications Medication Sig rosuvastatin (CRESTOR) 40 mg tablet Take 1 tablet by mouth daily at bedtime. metoprolol tartrate, short acting, (LOPRESSOR) 50 mg tablet Take 1 tablet by mouth two times a day. losartan (COZAAR) 100 mg tablet Take 1 tablet by mouth once daily. omeprazole (PRILOSEC) 20 mg capsule Take 1 capsule by mouth once daily. albuterol HFA (PROVENTIL HFA, VENTOLIN HFA) 90 mcg/actuation inhaler Inhale 2 Puffs as instructed every 6 hours as needed for wheezing/shortness of breath. sildenafil (VIAGRA) 50 mg tablet Take 1 tablet by mouth as needed. apixaban (ELIQUIS) 5 mg tab(s) Take 1 tablet by mouth twice daily. acetaminophen (TYLENOL ORAL) Take by mouth as needed. amLODIPine (NORVASC) 2.5 mg tablet Take 1 tablet by mouth once daily. Per Dr. Dietz aspirin 81 mg chewable tablet Take 1 tablet by mouth once daily. therapeutic multivitamin (THERA VITAMIN) tablet Take 1 tablet by mouth daily with breakfast. No current facility-administered medications for this visit. ALLERGIES: ALLERGIES Allergen Reactions Iv Contrast [Iodine] Angioedema IV contrast 06/01/2019 Lipitor [Atorvastat* myalgia Lovastatin myalgia Tijlscl-Ckf-Mxv Red* Other: See Comments, Myalgia sore joints and muscles PAST MEDICAL HISTORY Diagnosis Date Acute deep vein thrombosis (DVT) of right lower extremity (HCC) 09/27/2017 Arthritis BPH (benign prostatic hypertrophy) with urinary obstruction 10/10/2013 Calculus of kidney Coronary artery disease 2016 Stent 1 Diverticulitis Essential hypertension, benign GERD (gastroesophageal reflux disease) History of coronary artery stent placement 2016 Hypercalciuria 06/26/2012 Hypercholesterolemia Hyperlipidemia LDL goal < 100 04/17/2013 Other and unspecified hyperlipidemia Prostatic hypertrophy 2016 benign with outflow obstruction S/P CABG x 4 05/04/2017 [employer] workers comp claim Severe obesity with body mass index (BMI) of 35.0 to 35.9 and comorbidity (HCC) Snoring no JONAH Squamous cell skin cancer 05/13/2021 Stroke (HCC) PAST SURGICAL HISTORY Procedure Laterality Date BACK SURGERY HX CABG (4) VEIN GRAFTS & ARTERIAL GRAFT(S) 10/2016 COLON SURGERY HX COLONOSCOPY 05/28/2014 Diverticular disease- repeat in 2024 COLONOSCOPY FLX DX W/COLLJ SPEC WHEN PFRMD 02/12/2002 Colonoscopy-repeat in COLONOSCOPY FLX DX W/COLLJ SPEC WHEN PFRMD 04/26/2017 Colonoscopy ESOPHAGOGASTRODUODENOSCOPY TRANSORAL DIAGNOSTIC 04/26/2017 EGD EYE SURGERY HX FISSURECTOMY INCL SPHINCTEROTOMY WHEN PERFORMED HEART SURGERY HX HERNIA REPAIR HX LAPS COLECTOMY PRTL W/COLOPXTSTMY LW ANAST 04/14/2016 with mobilization of splenic flexure for diverticulitis PAST SURGICAL HISTORY OF 1982 lower back herniated disc PAST SURGICAL HISTORY OF 2005 low back surgery PAST SURGICAL HISTORY OF 04/04/2015 cardiac stent insertion PAST SURGICAL HISTORY OF 03/2016 colon resection REVISE MEDIAN N/CARPAL TUNNEL SURG Bilateral 06/12/2020 Bilateral carpal tunnel release RPR 1ST INGUN HRNA AGE 4 YRS/> REDUCIBLE Hernia repair, inguinal w/ mesh - right TONSILLECTOMY PRIMARY/SECONDARY <AGE 11 Tonsillectomy FAMILY HISTORY Problem Relation Age of Onset Heart Mother from CVA at age 75, CABG Hypertension Father Prostate Cancer Brother Coronary Artery Disease Brother stents other (pancreatic cancer) Sister Coronary Artery Disease Sister Coronary Artery Disease Sister Cancer Maternal Grandmother Parkinson s Disease Maternal Grandfather Cancer Paternal Grandfather Social History Tobacco Use Smoking status: Former Types: Cigarettes Quit date: 06/18/1987 Years since quittin.9 Smokeless tobacco: Never Tobacco comments: quit smoking 1987 Vaping Use Vaping Use: Never used Substance Use Topics Alcohol use: Yes Comment: 1glass of wine a day Drug use: No Reviewed current medications, allergies, past medical history, surgical history, family history and social history today. REVIEW OF SYSTEMS All other reviewed and negative other than HPI. HEALTH MAINTENANCE: Reviewed health maintenance issues today and recommended the following in detail. Advance Directive Discussion - on file. Depression Assessment due on 03/28/2023 VITALS: BP 122/62 Pulse (!) 53 Wt 95.7 kg (211 lb) SpO2 99% BMI 35.11 kg/m Last 4 Encounter Wt Readings: Date: Wt: 11/17/2022 98.4 kg (217 lb) 05/20/2022 108.9 kg (240 lb) 04/05/2022 108.4 kg (239 lb) 11/11/2021 106.6 kg (235 lb) PHYSICAL EXAMINATION: General appearance: Well appearing, alert, in no acute distress, well-hydrated, well nourished. Skin: Skin color, texture, turgor normal, no suspicious rashes or lesions Head: Normocephalic, no masses, lesions, tenderness or abnormalities Neck: Supple, no adenopathy; thyroid symmetric, normal size, no bruits Back: Normal exam Lungs: Lungs clear to auscultation. No wheezing, rhonchi, rales Heart: RRR without murmur, gallop, or rubs. No ectopy Abdomen: Normal abdominal exam, Abdomen soft, non-tender. Bowel sounds normal. No masses, organomegaly Extremities: No deformities, edema, skin discoloration, clubbing or cyanosis. Good capillary refill. Musculoskeletal: No joint swelling, deformity, or tenderness Peripheral pulses: Normal ASSESSMENT/PLAN: 1. Essential hypertension, benign - ICD9: 401.1, ICD10: I10 (primary diagnosis) - Controlled - Continue current medications 2. Hyperlipidemia with target LDL less than 100 - ICD9: 272.4, ICD10: E78.5 - Controlled - Continue current medications 3. ASHD (arteriosclerotic heart disease) - ICD9: 414.00, ICD10: I25.10 - follow with cardiology. 4. Paroxysmal atrial fibrillation (HCC) - ICD9: 427.31, ICD10: I48.0 - stable. Continue on meds. 5. Gastroesophageal reflux disease without esophagitis - ICD9: 530.81, ICD10: K21.9 - doing well. 6. History of squamous cell carcinoma - ICD9: V10.89, ICD10: Z85.89 - following with derm. 7. Lipid disorder - ICD9: 272.9, ICD10: E78.9 - Controlled - Continue current medications Jason Cook MD documented in this encounter [place] 04-12-2023 Telephone encounter Note Patient has been identified by name and date of : Yes, Provider Jason Cook Date 04/12/23 Time 8:51 AM Patient phones for refill(s): Requested Prescriptions Pending Prescriptions Disp Refills metoprolol tartrate, short acting, (LOPRESSOR) 50 mg tablet 180 tablet 3 Sig: Take 1 tablet by mouth two times a day. Date of last office visit in primary care: 11/17/2022 Date of next office visit in primary care: 05/18/2023 Please advise. Thank you. Maxwell Cowan. [place] 04-12-2023 Miscellaneous Notes Patient has been identified by name and date of : Yes, Provider Jason Cook Date 04/12/23 Time 8:51 AM Patient phones for refill(s): Requested Prescriptions Pending Prescriptions Disp Refills metoprolol tartrate, short acting, (LOPRESSOR) 50 mg tablet 180 tablet 3 Sig: Take 1 tablet by mouth two times a day. Date of last office visit in primary care: 11/17/2022 Date of next office visit in primary care: 05/18/2023 Please advise. Thank you. Maxwell Cowan. documented in this encounter [place] 03-01-2023 Miscellaneous Notes Form signed. Faxed to number provided. Type of form: Prescription Assistance Form received via walk in When form is completed, Fax form to [phone] Form has been forwarded to Physician Desk: Dr. Joey Redmond documented in this encounter [place] 12-25-2022 Discharge summary Note Date/Time December 25, 2022 3:26pm [facility] Medical Records Department [address] [place] [address] Emergency Department Summary 12/25/22 MR#: [id number] Acct: [id number] Name: CURTIS GUERRIER Rep #:[id number] : 1950 72 From: Ronaldo Siegel MD PCP: Dr. Jason Cook MD Status:REG E R Location: ED HPI History of Present Illness Chief Complaint: Head Injury Informant: patient Narrative Narrative: Was mowing. He was under a set of hard steps. He stood up and very hard hit his head on the bottom of the steps. He felt mildly dazed but was not knocked out. For a moment he felt a little tingling in his right cheek area. But that is resolved. He has minimal soreness on the head. But his concern is that he is on Eliquis. No numbness tingling. He is not dizzy now. No nausea vomiting. No other injuries. [facility] Medical History Arthritis Atherosclerotic heart disease of [place] coronary artery without angina pectoris BPH (benign prostatic hyperplasia) CAD (coronary artery disease) Carpal tunnel syndrome, bilateral Diverticulitis Essential hypertension GERD (gastroesophageal reflux disease) Hyperlipidemia Hypertension Paroxysmal A-fib Paroxysmal atrial fibrillation Postoperative atrial fibrillation TIA (transient ischemic attack) Home Medications aspirin 81 mg chewable tablet 81 mg PO DAILY@0800 03/24/14 [History Last Taken 02/09/19] rosuvastatin 10 mg tablet 40 mg PO QHS 10/30/16 [History Last Taken 02/07/19] multivitamin 1 tab PO DAILY 09/22/17 [History Last Taken 02/09/19] metoprolol tartrate 50 mg tablet 50 mg PO BID 04/25/19 [History Last Taken Unknown] acetaminophen 325 mg capsule (Tylenol) 325 mg PO Q6H PRN Pain Or Fever 04/26/19 [History Last Taken Unknown] losartan 100 mg tablet 100 mg PO DAILY 04/26/19 [History Last Taken Unknown] apixaban 5 mg tablet 5 mg PO BID #180 tabs 04/27/19 [Rx Last Taken Unknown] albuterol sulfate 90 mcg/actuation aerosol inhaler (ProAir HFA) 2 puff inhalation Q6H PRN PRN Shortness Of Breath 11/22/20 [History Last Taken Unknown] sildenafil 50 mg tablet (Viagra) 50 mg PO DAILY PRN sexual activity 02/26/21 [History Last Taken Unknown] omeprazole 20 mg capsule,delayed release 20 mg PO .3xw 12/10/21 [History Last Taken Unknown] amlodipine 2.5 mg tablet 2.5 mg PO DAILY #90 tabs 04/19/22 [Rx Last Taken Unknown] Allergy/AdvReac Type Severity Reaction Status Date / Time Iodinated Contrast Media [CT] Allergy Angioedema Verified 12/25/22 13:39 Anpycul-Avw-Akv Reductase AdvReac muscle pain Verified 12/25/22 13:39 Inhibitor Family History Mother CAD (coronary artery disease) CVA (cerebral vascular accident) History of coronary artery bypass surgery Father Hypertension Brother CAD (coronary artery disease) Presence of stent in coronary artery Sister CAD (coronary artery disease) Cancer Pancreatic Sister CAD (coronary artery disease) Surgical History History of back surgery History of colon resection History of coronary artery bypass surgery (~11/21/16) History of inguinal hernia repair History of lithotripsy (~2019) History of placement of stent in LAD coronary artery (~04/05/15) History of squamous cell carcinoma excision History of tonsillectomy Hx of CABG Social History Smoking Status: Former smoker how long ago did patient quit smokin alcohol intake: current alcohol intake frequency: 0-2 drinks per day Alcohol type: wine details: 1 galls of wine daily substance use type: does not use caffeine: Yes Type: coffee Number of servings: 2 ROS ROS ED Constitutional Constitutional ED: Denies chills or fever(s) Eyes Eyes: Denies blurry vision or change in vision ENT ENT ED: Denies sore throat Cardiovascular Cardiovascular: Denies chest pain Respiratory/Chest Respiratory/Chest: Denies cough or dyspnea Gastrointestinal Gastrointestinal: Denies nausea or vomiting Musculoskeletal Musculoskeletal: Denies arthralgias, back pain or neck pain Integumentary Reports Abrasions Neurologic Neurologic: Reports headache(s); Denies paresthesias or weakness Hematologic/Lymphatic Hematologic/Lymphatic: Reports easy bleeding and easy bruising Allergic/Immunologic Allergic/Immunologic ED: Denies urticaria EXAM Physical Exam Narrative Exam Narrative: Patient is awake alert no acute distress pleasant good informant. HEENT: Does show an abrasion on the top right scalp. But no laceration. No bony step-off is felt. Neck is supple no tenderness or pain with motion. Heart does actually sound regular now. Rate is about 70. Lungs are clear. Saturations are normal at 98% on room air showing no hypoxia. Abdomen soft nontender Extremities show no injury Neurologically patient is awake alert appropriate. He has normal speech. Normal coordination and gait. Const Vital Signs: 12/25/22 13:39 12/25/22 13:51 Temperature 97 F L Temperature Source Temporal Pulse Rate 67 Respiratory Rate 16 Respiratory Effort Normal Respiratory Depth Normal Respiratory Pattern Normal Blood Pressure 165/63 H Blood Pressure Mean 97 Pulse Ox 98 Oxygen Delivery Method Room Air MDM MDM MDM Narrative Medical decision making narrative: My independent interpretation the patient's CT scan of the head shows no acute process. Final reading is age consistent changes, no acute findings. Patient is rechecked. He is awake alert appropriate. No new or progressing symptoms. I think he is appropriate for discharge. Patient has no bleeding around to getting CBC. He was not ill prior to this and I will think electrolytes are going to be needed. He is on Eliquis. I do not think there is a benefit to PT or PTT blood work. Radiography Diagnostic Testing: Clinical Impression(s) from Imaging Studies Brain CT 12/25/22 14:05 IMPRESSION: Age consistent changes, no acute findings Electronically Signed: Dimitri Bojorquez MD at 14:40 EDT , Discharge Plan Triage Chief Complaint: Head Injury ED Provider: Ronaldo Siegel Dx/Rx/DC Orders Clinical Impression: Medication induced coagulopathy, Closed head injury Instructions: ED Head Injury (Adult) Prescriptions: No Action losartan 100 mg tablet 100 mg PO DAILY acetaminophen [Tylenol] 325 mg capsule 325 mg PO Q6H PRN (Reason: Pain Or Fever) apixaban 5 mg tablet 5 mg PO BID Qty: 180 4RF sildenafil [Viagra] 50 mg tablet 50 mg PO DAILY PRN (Reason: sexual activity) Rx Instructions: administer 30 minutes to 4 hours before activity aspirin 81 MG tablet,chewable 81 mg PO DAILY@0800 Patient Comments: Blood thinner for heart health omeprazole 20 mg capsule,delayed release(DR/EC) 20 mg PO .3xw Patient Comments: Acid reflux rosuvastatin 10 MG tablet 40 mg PO QHS multivitamin 1 EACH tablet 1 tab PO DAILY metoprolol tartrate 50 mg tablet 50 mg PO BID albuterol sulfate [ProAir HFA] 90 mcg/actuation Hfa Aerosol Inhaler 2 puff INHALATION Q6H PRN PRN (Reason: Shortness Of Breath) amlodipine 2.5 mg tablet 2.5 mg PO DAILY Qty: 90 3RF Primary Care Provider: Jason Cook Referrals: Jason Cook MD [Primary Care Provider] - 3-5 Days if not improving Disposition Disposition: Home, Self Care What to do if you have Problems For any increased pain, shortness of breath, bleeding, nausea or vomiting, chestpain, or any unexpected problems, contact your Primary Care Provider. Call [facility] ([phone]) or report to the closest Emergency Room. Call 911 if necessary. 12/25/22 1526 <Electronically signed by Ronaldo Siegel MD> Cosigner Signature (if applicable): CC: Dr. Jason Cook MD ~ Signed [facility] Work Phone: [phone] 269-334308-23-2023 History of Present illness Narrative* Jason Cook MD - 11/17/2022 9:59 AM EDT Patient presents with: Follow Up: 6 month follow up. HPI: Patient presents today for office visit for follow up. Follow with [facility] and [place] [facility] CAD:did have an episode over a month ago, he recorded his heart rate near 40. Was asymptomatic. Hasderick martinez since. Red flags for re-assessment reviewed with patient in detail. Will contact cardiology if happens again. No chest pain or shortness of breath. No edema. No palpitations. Has not had to use his albuterol for three to four months. GERD:rarely has heatburn. Uses med three times a week. ANTICOAG:no bleeding issues. HYPERTENSION:well controlled. HLD:no myalgias. Tolerating meds well. Has been losing weight. Down 27 lbs. Using my weight program. Very happy with progress. He is feeling food. Wants to have his prostate checked. Component Latest Ref Rng & Units 11/09/2022 WBC 3.70 - 11.00 k/uL 5.22 RBC 4.20 - 6.00 m/uL 4.68 Hemoglobin 13.0 - 17.0 g/dL 14.8 Hematocrit 39.0 - 51.0 % 44.2 MCV 80.0 - 100.0 fL 94.4 MCH 26.0 - 34.0 pg 31.6 MCHC 30.5 - 36.0 g/dL 33.5 RDW-CV 11.5 - 15.0 % 13.2 Platelet Count 150 - 400 k/uL 201 MPV 9.0 - 12.7 fL 10.6 Neut% % 53.6 Abs Neut (ANC) 1.45 - 7.50 k/uL 2.80 Lymph% % 33.3 Abs Lymph 1.00 - 4.00 k/uL 1.74 [place]% % 9.8 Abs [place] <0.87 k/uL 0.51 Eosin% % 2.3 Abs Eosin <0.46 k/uL 0.12 Baso% % 0.8 Abs Baso <0.11 k/uL 0.04 Immature Gran % % 0.2 IMMATURE GRANS (ABS) <0.10 k/uL <0.03 NRBC /100 WBC 0.0 Absolute nRBC <0.01 k/uL <0.01 DTYPE Auto Protein, Total 6.3 - 8.0 g/dL 6.7 Albumin 3.9 - 4.9 g/dL 4.2 Calcium 8.5 - 10.2 mg/dL 9.0 Bilirubin, Total 0.2 - 1.3 mg/dL 0.8 Alkaline Phosphatase 38 - 113 U/L 60 AST 14 - 40 U/L 15 ALT 10 - 54 U/L 11 Glucose 74 - 99 mg/dL 93 BUN 9 - 24 mg/dL 16 Creatinine 0.73 - 1.22 mg/dL 0.97 Sodium 136 - 144 mmol/L 138 Potassium 3.7 - 5.1 mmol/L 4.1 Chloride 97 - 105 mmol/L 102 CO2 22 - 30 mmol/L 23 Anion Gap 9 - 18 mmol/L 13 eGFR >=60 mL/min/1.73m 82 Cholesterol, Total <200 mg/dL 145 Triglyceride <150 mg/dL 117 HDL Cholesterol >39 mg/dL 47 Non HDL Cholesterol <130 mg/dL 98 Fasting Time hrs 14 VLDL Cholesterol <30 mg/dL 23 TC:HDL Ratio <5.10 3.09 LDL Cholesterol <100 mg/dL 75 LDL:HDL Ratio <2.54 1.60 PSA Screening <2.60 ng/mL 1.29 MEDICATIONS: Current Outpatient Medications Medication Sig omeprazole (PRILOSEC) 20 mg capsule Take 1 capsule by mouth once daily. metoprolol tartrate, short acting, (LOPRESSOR) 50 mg tablet Take 1 tablet by mouth twice daily. sildenafil (VIAGRA) 50 mg tablet Take 1 tablet by mouth as needed. rosuvastatin (CRESTOR) 40 mg tablet Take 1 tablet by mouth daily at bedtime. losartan (COZAAR) 100 mg tablet Take 1 tablet by mouth once daily. apixaban (ELIQUIS) 5 mg tab(s) Take 1 tablet by mouth twice daily. acetaminophen (TYLENOL ORAL) Take by mouth as needed. amLODIPine (NORVASC) 2.5 mg tablet Take 1 tablet by mouth once daily. Per Dr. Dietz aspirin 81 mg chewable tablet Take 1 tablet by mouth once daily. therapeutic multivitamin (THERA VITAMIN) tablet Take 1 tablet by mouth daily with breakfast. albuterol HFA (PROVENTIL HFA, VENTOLIN HFA) 90 mcg/actuation inhaler Inhale 2 Puffs as instructed every 6 hours as needed for wheezing/shortness of breath. No current facility-administered medications for this visit. ALLERGIES: ALLERGIES Allergen Reactions Iv Contrast [Iodine] Angioedema IV contrast 06/01/2019 Lipitor [Atorvastat* myalgia Lovastatin myalgia Zwtrisd-Ouw-Gwl Red* Other: See Comments, Myalgia sore joints and muscles PAST MEDICAL HISTORY Diagnosis Date Acute deep vein thrombosis (DVT) of right lower extremity (HCC) 09/27/2017 Arthritis BPH (benign prostatic hypertrophy) with urinary obstruction 10/10/2013 Calculus of kidney Coronary artery disease 2016 Stent 1 Diverticulitis Essential hypertension, benign GERD (gastroesophageal reflux disease) History of coronary artery stent placement 2016 Hypercalciuria 06/26/2012 Hypercholesterolemia Hyperlipidemia LDL goal < 100 04/17/2013 Other and unspecified hyperlipidemia Prostatic hypertrophy 2016 benign with outflow obstruction S/P CABG x 4 05/04/2017 [employer] workers comp claim Severe obesity with body mass index (BMI) of 35.0 to 35.9 and comorbidity (HCC) Snoring no JONAH Squamous cell skin cancer 05/13/2021 Stroke (HCC) PAST SURGICAL HISTORY Procedure Laterality Date BACK SURGERY HX CABG (4) VEIN GRAFTS & ARTERIAL GRAFT(S) 10/2016 COLON SURGERY HX COLONOSCOPY 05/28/2014 Diverticular disease- repeat in 2024 COLONOSCOPY FLX DX W/COLLJ SPEC WHEN PFRMD 02/12/2002 Colonoscopy-repeat in COLONOSCOPY FLX DX W/COLLJ SPEC WHEN PFRMD 04/26/2017 Colonoscopy ESOPHAGOGASTRODUODENOSCOPY TRANSORAL DIAGNOSTIC 04/26/2017 EGD EYE SURGERY HX FISSURECTOMY INCL SPHINCTEROTOMY WHEN PERFORMED HEART SURGERY HX HERNIA REPAIR HX LAPS COLECTOMY PRTL W/COLOPXTSTMY LW ANAST 04/14/2016 with mobilization of splenic flexure for diverticulitis PAST SURGICAL HISTORY OF 1982 lower back herniated disc PAST SURGICAL HISTORY OF 2005 low back surgery PAST SURGICAL HISTORY OF 04/04/2015 cardiac stent insertion PAST SURGICAL HISTORY OF 03/2016 colon resection REVISE MEDIAN N/CARPAL TUNNEL SURG Bilateral 06/12/2020 Bilateral carpal tunnel release RPR 1ST INGUN HRNA AGE 4 YRS/> REDUCIBLE Hernia repair, inguinal w/ mesh - right TONSILLECTOMY PRIMARY/SECONDARY <AGE 12 Tonsillectomy FAMILY HISTORY Problem Relation Age of Onset Heart Mother from CVA at age 75, CABG Hypertension Father Prostate Cancer Brother Coronary Artery Disease Brother stents other (pancreatic cancer) Sister Coronary Artery Disease Sister Coronary Artery Disease Sister Cancer Maternal Grandmother Parkinson s Disease Maternal Grandfather Cancer Paternal Grandfather Social History Tobacco Use Smoking status: Former Types: Cigarettes Quit date: 06/18/1987 Years since quittin.4 Smokeless tobacco: Never Tobacco comments: quit smoking 1987 Vaping Use Vaping Use: Never used Substance Use Topics Alcohol use: Yes Comment: 1glass of wine a day Drug use: No Reviewed current medications, allergies, past medical history, surgical history, family history andsocial history today. REVIEW OF SYSTEMS All other reviewed and negative other than HPI. HEALTH MAINTENANCE: Reviewed health maintenance issues today and recommended the following in detail. COVID-19 VACCINE(5 - Additional dose for [place] series) due on 04/24/2022 BP CONTROLLED (<130/80) due on 11/11/2022 Had discussion with patient regarding risks and benefits of prostate screening. Allowed them to decide if they wished to proceed with screening including DC and PSA. VITALS: BP 122/70 Pulse (!) 50 Resp 18 Wt 98.4 kg (217 lb) SpO2 97% BMI 36.11 kg/m Last 4 Encounter Wt Readings: Date: Wt: 11/17/2022 98.4 kg (217 lb) 05/20/2022 108.9 kg (240 lb) 04/05/2022 108.4 kg (239 lb) 11/11/2021 106.6 kg (235 lb) PHYSICAL EXAMINATION: General appearance: Well appearing, alert, in no acute distress, well-hydrated, well nourished. Skin: Skin color, texture, turgor normal, no suspicious rashes or lesions Lungs: Lungs clear to auscultation. No wheezing, rhonchi, rales Heart: RRR without murmur, gallop, or rubs. No ectopy Abdomen: Normal abdominal exam, Abdomen soft, non-tender. Bowel sounds normal. No masses, organomegaly Extremities: No deformities, edema, skin discoloration, clubbing or cyanosis. Good capillary refill. Musculoskeletal: No joint swelling, deformity, or tenderness -rectal: prostate not enlarged or tender. No nodule. ASSESSMENT/PLAN: 1. Paroxysmal atrial fibrillation (HCC) - ICD9: 427.31, ICD10: I48.0 (primary diagnosis) - continue current meds. Call if any issues. 2. ASHD (arteriosclerotic heart disease) - ICD9: 414.00, ICD10: I25.10 - stable. 3. Essential hypertension, benign - ICD9: 401.1, ICD10: I10 - Controlled - Recommend home blood pressure monitoring, to bring results to next visit - Encouraged sodium restriction, DASH or Mediterranean diet - Recommend regular aerobic exercise 4. History of squamous cell carcinoma - ICD9: V10.89, ICD10: Z85.89 - sees derm. 5. Lipid disorder - ICD9: 272.9, ICD10: E78.9 - Controlled - Continue current medications Jason Cook MD [place] Instructions* Patient Instructions* Leighton Ward MD - 07/22/2022 7:53 AM EDT SKIN CARE AFTER CRYOSURGERY The skin's response to cryosurgery (freezing) can be mild to more severe, depending on the depth ofthe freeze and the location of the area treated. You may have only mild redness and swelling with alittle discomfort of significant discoloration and blistering with considerable discomfort. A burning sensation in the skin may last from several minutes to several hours after the procedure. Follow these instructions when caring for an area treated by cryosurgery: MINOR RESPONSE: 1. The area may sting or burn for a short time after treatment. 2. The treated area will be red in color at first then turn brown and flaky as it heals and the upper layer of skin sloughs off. 3. Gently cleanse the area with soap and water then use alcohol swab to remove extra bacteria. Pat dry and apply a thin film of Vaseline or Aquaphor ointment. Do this at least once a day to prevent infection. MAJOR RESPONSE: 1. Follow instructions as stated for minor response. 2. The area may sting and burn for several hours after treatment. 3. To relieve throbbing and pain, elevate the treatment area. 4. Acetaminophen (Tylenol) may be taken every 3 to 4 hours for discomfort. 5. A blister will form in the area of freezing. It may be filled with clear fluid or blood. This response is not unusual. 6. Do not break the blister unless it becomes uncomfortable. You may prick the blister with a sterile needle or pin to remove the fluid. Leave the skin intact. 7. Cleanse twice a day with soap and water and isopropyl alcohol and apply Vaseline to prevent infection and a thick scab from forming. 8. All treated areas usually heal within 3 to 4 weeks. If you have problems or questions, please call [place] [facility] [phone] documented in [place]-[place]23 History of Present illness Narrative* Leighton Ward MD - 07/22/2022 7:37 AM EDT Patient returns for follow up skin check due to history of SCC right amish treated with Mohs . Last visit was 6 months ago. NEW COMPLAINTS: right cheek lesion getting bigger, rough area on left hand and upper left arm , x2 areas on lower back and one area on left buttock MEDICAL HX: No significant changes PHYSICAL EXAM: The patient is pleasant, oriented x 3, in no acute distress. Exam performed of the scalp, face, neck, chest, back, abdomen, arms, legs, and buttock. Significant findings noted below, otherwise no suspicious lesions noted at this time. Left Parietal Scalp 5 mm bluish macule uniformly pigmented with smooth borders Right Parotid Area, Right Upper Arm - Posterior Stuck-on flat-topped rough papule with erythema Left 4th Metacarpal, Right Amish Focal areas of gritty adherent scale. Head - Anterior (Face), Left Upper Back, Neck - Posterior, Right Upper Back Diffusely scattered reed macules and patches on sun exposed areas. IMPRESSION/PLAN: Skin exam, screening for cancer Blue nevus Left Parietal Scalp Educated and reassured of benign nature. Inflamed seborrheic keratosis Skin pain Right Upper Arm - Posterior; Right Parotid Area Advised treatment to lesion due to pain from inflammation in addition to evaluation and management of other lesions on body. CRYOTHERAPY SKIN LESION - Right Upper Arm - Posterior Complexity: simple Destruction method: cryotherapy Informed consent: discussed and consent obtained Informed consent comment: Risk of hypopigmentation and recurrence of lesion(s) discussed. Timeout: patient name, date of , surgical site, and procedure verified Lesion destroyed using liquid nitrogen: Yes Region frozen until ice ball extended beyond lesion: Yes Cryotherapy cycles: 2 Outcome: patient tolerated procedure well with no complications Post-procedure details: wound care instructions given AK (actinic keratosis) (2) Left 4th Metacarpal; Right Amish The gold standard is to treat pre cancerous lesions. This is in addition to evaluation and management of other areas on the skin. Discussion regarding actinic keratosis treatment: Photodynamic therapy vs chemical (Efudex) vs cryotherapy. Potential side effects. Patient prefers and agrees to cryo treatment. CRYOTHERAPY SKIN LESION - Right Amish Complexity: simple Destruction method: cryotherapy Informed consent: discussed and consent obtained Informed consent comment: Risk of hypopigmentation and recurrence of lesion(s) discussed. Timeout: patient name, date of , surgical site, and procedure verified Lesion destroyed using liquid nitrogen: Yes Region frozen until ice ball extended beyond lesion: Yes Cryotherapy cycles: 2 Outcome: patient tolerated procedure well with no complications Post-procedure details: wound care instructions given Counseled patient on sun avoidance, use of sunscreen, and monthly self skin examination. Reviewed signs of skin cancer, including ABCDE's of malignant melanoma. FOLLOW UP: 6 months. The documentation for this note was completed by Sherita Stratton LPN/Loulou Mario LPN acting as scribe for Leighton Ward MD. July 22, 2022 7:41 AM. I agree with the Chief Complaint, ROS, and Past Histories independently gathered by the clinical customer support representative and the remaining scribed note accurately describes my personal service to the patient. Leighton Ward MD Medical Decision Making: Problems: Low: Stable chronic illness Risk: Low: Low risk from testing/treatment Medical Decision Making Level: 3 - Low documented in this [facility]03-20-2023 Miscellaneous Notes* Telephone Encounter - Pema Benítez LPN - 06/14/2022 9:57 AM EDT Patient has been identified by name and date of : Yes Requested Prescriptions Pending Prescriptions Disp Refills metoprolol tartrate, short acting, (LOPRESSOR) 50 mg tablet 180 tablet 3 Sig: Take 1 tablet by mouth twice daily. RX INSTRUCTIONS: Patient aware RX will be sent to pharmacy. No need to notify patient. MARIANNE 05/10/22 Pema Benítez LPN documented in this [facility]02-27-2023 Miscellaneous Notes* Telephone Encounter - Pema Benítez LPN - 05/24/2022 2:21 PM EST Faxed as requested. 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 Placed on Sisasa's desk for completion and signature. Needs faxed back to [phone]. Galindo Redmond documented in this [facility]02-18-2023 Miscellaneous Notes* Telephone Encounter - Judi Medina LPN - 05/15/2022 9:40 AM EST Patient phones requesting refills as follows: Requested Prescriptions Pending Prescriptions Disp Refills sildenafil (VIAGRA) 50 mg tablet 30 tablet 5 Sig: Take 1 tablet by mouth as needed. MARIANNE 04/05/22 NOV 05/20/22 Please review and advise. Judi Medina LPN [place] History of Present illness Narrative* Filipe Ivy RT(R) - 04/05/2022 4:10 PM EST Radiology Service Progress Note PATIENT NAME: Curtis Guerrier DATE OF SERVICE: April 05, 2022 TIME: 4:16 PM PATIENT IDENTITY VERIFICATION COMPLETED USING TWO (2) IDENTIFIERS: Name and Date of confirmedby patient verbally. FALL SCREENING: Has the patient had 2 falls in the last year or 1 fall with injury or currently using an Ambulatory Assistive Device (Walker, Cane, Wheelchair, Crutches, etc.)? No PATIENT GENDER DATA: Male PATIENT RELEVANT IMPLANT DATA REVIEWED: Not Applicable RADIOLOGY DEPARTMENT: General X-ray: Exam(s) Completed: Chest X-Ray PERIPHERAL IV DATA: Not applicable SIGNED BY: RT Aparna(R) April 05, 2022 4:16 PM documented in [place] [facility]-09-2023 Instructions* Patient Instructions* Jason Cook MD - 04/05/2022 3:54 PM EST Use delsym or robitussin. documented in [place] [facility]2023 History of Present illness Narrative* Jason Cook MD - 04/05/2022 3:34 PM EST Patient presents with: Chest Congestion HPI: Patient presents today for office visit for follow up. Patient presents today complaining of increased cough. Duration: started after COVID dx which was just after [place]. Cough is productive:YES. Fever: :No. Shortness of breath:No. Sore throat :No. Ear Pain :feels clogged. Chest Pain :No. History of pneumonia Denies NVD Previous treatments tried: has used albuterol, robitussin. MEDICATIONS: Current Outpatient Medications Medication Sig losartan (COZAAR) 100 mg tablet Take 1 tablet by mouth once daily. omeprazole (PRILOSEC) 20 mg capsule Take 1 capsule by mouth once daily. apixaban (ELIQUIS) 5 mg tab(s) Take 1 tablet by mouth twice daily. rosuvastatin (CRESTOR) 40 mg tablet Take 1 tablet by mouth daily at bedtime. albuterol HFA (PROVENTIL HFA, VENTOLIN HFA) 90 mcg/actuation inhaler Inhale 2 Puffs as instructed every 6 hours as needed for wheezing/shortness of breath. amLODIPine (NORVASC) 2.5 mg tablet Take 1 tablet by mouth once daily. Per Dr. Dietz aspirin 81 mg chewable tablet Take 1 tablet by mouth once daily. therapeutic multivitamin (THERA VITAMIN) tablet Take 1 tablet by mouth daily with breakfast. metoprolol tartrate, short acting, (LOPRESSOR) 50 mg tablet Take 1 tablet by mouth twice daily. sildenafil (VIAGRA) 50 mg tablet Take 1 tablet by mouth as needed. acetaminophen (TYLENOL ORAL) Take by mouth as needed. No current facility-administered medications for this visit. ALLERGIES: ALLERGIES Allergen Reactions Iv Contrast [Iodine] Angioedema IV contrast 06/01/2019 Lipitor [Atorvastat* myalgia Lovastatin myalgia [id number]-[id number]-[id number] Red* Other: See Comments, Myalgia sore joints and muscles PAST MEDICAL HISTORY Diagnosis Date Acute deep vein thrombosis (DVT) of right lower extremity (HCC) 09/27/2017 Arthritis BPH (benign prostatic hypertrophy) with urinary obstruction 10/10/2013 Calculus of kidney Coronary artery disease 2016 Stent 1 Diverticulitis Essential hypertension, benign GERD (gastroesophageal reflux disease) History of coronary artery stent placement 2016 Hypercalciuria 06/26/2012 Hypercholesterolemia Hyperlipidemia LDL goal < 100 04/17/2013 Other and unspecified hyperlipidemia Prostatic hypertrophy 2016 benign with outflow obstruction S/P CABG x 4 05/04/2017 Sciatica workers comp claim Severe obesity with body mass index (BMI) of 35.0 to 35.9 and comorbidity (HCC) Snoring no JONAH Squamous cell skin cancer 05/13/2021 Stroke (HCC) PAST SURGICAL HISTORY Procedure Laterality Date BACK SURGERY HX CABG (4) VEIN GRAFTS & ARTERIAL GRAFT(S) 10/2016 COLON SURGERY HX COLONOSCOPY 05/28/2014 Diverticular disease- repeat in 2024 COLONOSCOPY FLX DX W/COLLJ SPEC WHEN PFRMD 02/12/2002 Colonoscopy-repeat in COLONOSCOPY FLX DX W/COLLJ SPEC WHEN PFRMD 04/26/2017 Colonoscopy ESOPHAGOGASTRODUODENOSCOPY TRANSORAL DIAGNOSTIC 04/26/2017 EGD EYE SURGERY HX FISSURECTOMY INCL SPHINCTEROTOMY WHEN PERFORMED HEART SURGERY HX HERNIA REPAIR HX LAPS COLECTOMY PRTL W/COLOPXTSTMY LW ANAST 04/14/2016 with mobilization of splenic flexure for diverticulitis PAST SURGICAL HISTORY OF 1982 lower back herniated disc PAST SURGICAL HISTORY OF 2005 low back surgery PAST SURGICAL HISTORY OF 04/04/2015 cardiac stent insertion PAST SURGICAL HISTORY OF 03/2016 colon resection REVISE MEDIAN N/CARPAL TUNNEL SURG Bilateral 06/12/2020 Bilateral carpal tunnel release RPR 1ST INGUN HRNA AGE 4 YRS/> REDUCIBLE Hernia repair, inguinal w/ mesh - right TONSILLECTOMY PRIMARY/SECONDARY <AGE 11 Tonsillectomy FAMILY HISTORY Problem Relation Age of Onset Heart Mother from CVA at age 75, CABG Hypertension Father Prostate Cancer Brother Coronary Artery Disease Brother stents other (pancreatic cancer) Sister Coronary Artery Disease Sister Coronary Artery Disease Sister Cancer Maternal Grandmother Parkinson s Disease Maternal Grandfather Cancer Paternal Grandfather Social History Tobacco Use Smoking status: Former Types: Cigarettes Quit date: 06/18/1987 Years since quittin.8 Smokeless tobacco: Never Tobacco comments: quit smoking 1987 Vaping Use Vaping Use: Never used Substance Use Topics Alcohol use: Yes Comment: 1glass of wine a day Drug use: No Reviewed current medications, allergies, past medical history, surgical history, family history andsocial history today. REVIEW OF SYSTEMS Bp is barely up today. Has an appt next month GI: No nausea, vomiting, or diarrhea All other reviewed and negative other than HPI. HEALTH MAINTENANCE: Reviewed health maintenance issues today and recommended the following in detail. ADVANCE DIRECTIVE DISCUSSION - is on file DEPRESSION ASSESSMENT Never done VITALS: BP 152/72 Pulse 60 Wt 108.4 kg (239 lb) SpO2 97% BMI 39.77 kg/m Last 4 Encounter Wt Readings: Date: Wt: 04/05/2022 108.4 kg (239 lb) 11/11/2021 106.6 kg (235 lb) 05/13/2021 102.9 kg (226 lb 12.8 oz) 11/08/2020 107 kg (236 lb) PHYSICAL EXAMINATION: General appearance: Well appearing, alert, in no acute distress, well-hydrated, well nourished. Skin: Skin color, texture, turgor normal, no suspicious rashes or lesions Head: Normocephalic, no masses, lesions, tenderness or abnormalities Eyes: Anicteric sclera. Pupils are equally round and reactive to light. Extraocular movements are intact. Ears: External ears normal, canals clear Nose/Sinuses: Nares normal, septum midline, mucosa normal, no drainage or sinus tenderness Oropharynx: Lips, mucosa, and tongue normal, teeth and gums normal, oropharynx normal Neck: Negative findings: no adenopathy Lungs: Lungs clear to auscultation. No wheezing, rhonchi, rales Heart: RRR without murmur, gallop, or rubs. No ectopy Abdomen: Normal abdominal exam, Abdomen soft, non-tender. Bowel sounds normal. No masses, organomegaly ASSESSMENT/PLAN: 1. Bronchitis - ICD9: 490, ICD10: J40 (primary diagnosis) - Discussed risks and benefits of new medication with the patient. Advised them to call if any sideeffects or questions. Red flags for re-assessment reviewed with patient in detail. Call if symptoms worsen at all or if not better in one to two weeks Reviewed diagnosis and treatment options in detail. Questions were answered. Patient expressed understanding of treatment plan. - XR CHEST 2V FRONTAL/LAT - DOXYCYCLINE MONOHYDRATE 100 MG TABLET 2. Paroxysmal atrial fibrillation (HCC) - ICD9: 427.31, ICD10: I48.0 3. Essential hypertension, benign - ICD9: 401.1, ICD10: I10 - good control - Continue current medication(s) - Goal of BP <130/80 4. History of COVID-19 - ICD9: V12.09, ICD10: Z86.16 - as above Jason Cook MD [place]-[place] Miscellaneous Notes* Telephone Encounter - Alondra Heller LPN - 03/05/2022 8:38 AM EST Patient phones requesting refills as follows: Requested Prescriptions Pending Prescriptions Disp Refills losartan (COZAAR) 100 mg tablet 90 tablet 3 Sig: Take 1 tablet by mouth once daily. MARIANNE-11/11/21 Labs-11/12/21 NOV-05/20/22 med filled 04/20/21 Please review and advise. Alondra Heller LPN documented in this [facility]10-13-2022 Miscellaneous Notes* Telephone Encounter - Hattie Villalpando - 01/07/2022 1:10 PM EDT Spoke with pt and scheduled documented in this [facility]04-15-2022 Miscellaneous Notes* Telephone Encounter - Karl Hallman LPN - 07/10/2021 12:42 PM EDT Patient phones requesting refills as follows: Pending Prescriptions Disp Refills METOPROLOL TARTRATE 50 MG TABLET 180 tablet 3 Sig: Take 1 tablet by mouth twice daily. MICHELINE: No MARIANNE 05/13/21 NOV 11/11/21 Please review and advise. Karl Hallman LPN documented in this [facility]03-31-2022 History of Present illness Narrative* Vero Strong MD - 06/25/2021 7:50 AM EDT MOHS SURGERY FOLLOW UP VISIT RETURNS FOR: Post op wound check PROCEDURE: s/p Mohs surgery DIAGNOSIS: SCCIS LOCATION: right amish DATE OF PROCEDURE: 05/07/2021 REPAIR: secondary intenrt PHOTO TAKEN: yes Pt reports: Very happy with healing just still concerned about white spot in center Particular concerns: Pain: none Scar appearance: as above Numbness: none PE: The patient is alert, oriented and in no acute distress. 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 Ward for routine skin care every 6 months. Continue to stress sun protection. Instructed to RETURN TO CLINIC sooner should they have any particular new concerns. The documentation for this note was completed by Hattie Mcpherson RN acting as scribe for Vero Strong MD. June 25, 2021 7:55 AM. I saw and evaluated Curtis Guerrier. I agree with the Chief Complaint, HPI, ROS, and Past Histories, and procedure notes independently gathered by the clinical customer support representative. I have discussed the assessment and plan with the patient as well as reviewed, confirmed and edited this note, as necessary. The remaining scribed note accurately describes my personal service to the patient and direct input. There were no procedures performed during this patient's visit. Vero Strong MD June 25, 2021 documented in this [facility]02-16-2022 History of Past illness Narrative* Problem Noted Date Diagnosed Date Resolved Date Squamous cell skin cancer 05/13/2021 Overview: In situ Shoulder impingement syndrome, right 01/02/2020 11/17/2022 Shoulder impingement syndrome, left 01/02/2020 11/17/2022 Arthritis of lumbar spine 09/20/2019 Plantar fasciitis of right foot 12/02/2017 07/18/2018 Paroxysmal A-fib 11/20/2016 05/04/2017 Overview: History: Post op Assessment: Paroxsymal A-fib - no prior hx. Converted to SR 11/15 with Amio gtt. Back into A-fib with RVR at 0750 on 11/16, Converted to SR at 1900 11/16. Went into afib with controlled HR on 11/19 at 18:20, asymptomatic, HD stable, converted to sinus this AM. Plan: Cont PO amio and BB. No Coumadin per Dr. Lee SUMMARY 11/15/2016 11/17/2022 Overview: Indication for Surgery: CAD LVEF: Normal RVF: Normal [facility] Cards: Jason Barajas, DO Important/Relevant PMH/PSH: ANA to LAD in , previous smoking, hypertension, hyperlipidemia, BPH, GERD, Sciatica, diverticulitis s/p partial colectomy 2016 Preoperative Hospital Course: 66 y/o with CAD ANA to LAD in , continued on plavix til , recent 4 month history of dyspnea and fatigue, increased over the last few week , exercise nuclear stress test 11-04 balanced circulation, OSH cath 11-08 multi-vessel disease with LM involvement, transferred here for stenting Dr murphy reviewed film , rec CABG Procedure/Surgeries: 11/12/2016 CABG x 4 ADDISON to LAD, RSVG to PDA, RSVG to Ramus and RSVG to Diagonal Airway Difficulty: Grade I - No special instrumentation OR Course: Uncomplicated. 1FFP/1Plt Pacing wires: No Postoperative Course/General Impression: S/p CABGX4. Arrived on levophed for goal maps 70-80.. Extubated. High chest tube output for which he required replacement of coagulation factors. BG and pain control A/P: S/p CABGx4 - ASA, statin, and BB Paroxsymal A-fib - no prior hx. Converted to SR 11/15 with Amio gtt. Back into A- fib with RVR at 0750 on 11/16, Converted to SR at 1900 11/16. Went into afib with controlled HR on 11/19 at 18:20, asymptomatic, HD stable, converted to sinus this AM. Cont PO amio and BB. No Coumadin per Dr. Lee HTN - SBP 110-130s. Cont BB BPH - (+) void after way removal, on home dose Flomax GERD - protonix Disp: 66M from [place], [place]. Supportive Partner at bedside. At this point, Will need f/u with PCP, Cards, and OPD requested). 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 11/08/2016 05/04/2017 Overview: History: PCI ANA to LAD Assessment: 11/12/2016 s/p CABGX4 (ADDISON to LAD, RSVG to PDA, RSVG to Ramus and RSVG to Diagonal) Plan: CAD Core Measures: Aspirin: Yes Beta blockers: Yes Statins: Yes - Crestor 10mg LLQ pain 11/20/2015 12/04/2015 Abdominal pain, acute, right upper quadrant 11/08/2014 12/04/2015 Diverticulitis of colon 05/20/201406/27 Elevated PSA 06/18/2013 11/11/2021 Hematuria 05/23/2012 12/04/2015 Urinary frequency 05/23/2012 07/18/2018 Anal fissure 11/04/2008 12/04/2015 Sciatica 03/06/2007 12/04/2015 documented as of this encounter (statuses as of 11/17/2022) [place]02-16-2022 History of Past illness Narrative* Problem Noted Date Diagnosed Date Resolved Date Squamous cell skin cancer 05/13/2021 Overview: In situ Shoulder impingement syndrome, right 01/02/2020 11/17/2022 Shoulder impingement syndrome, left 01/02/2020 11/17/2022 Arthritis of lumbar spine 09/20/2019 Plantar fasciitis of right foot 12/02/2017 07/18/2018 Paroxysmal A-fib 11/20/2016 05/04/2017 Overview: History: Post op Assessment: Paroxsymal A-fib - no prior hx. Converted to SR 11/15 with Amio gtt. Back into A-fib with RVR at 0750 on 11/16, Converted to SR at 1900 11/16. Went into afib with controlled HR on 11/19 at 18:20, asymptomatic, HD stable, converted to sinus this AM. Plan: Cont PO amio and BB. No Coumadin per Dr. Lee SUMMARY 11/15/2016 11/17/2022 Overview: Indication for Surgery: CAD LVEF: Normal RVF: Normal [facility] Cards: Jason Barajas, Important/Relevant PMH/PSH: ANA to LAD in , previous smoking, hypertension, hyperlipidemia, BPH, GERD, Sciatica, diverticulitis s/p partial colectomy 2016 Preoperative Hospital Course: 66 y/o with CAD ANA to LAD in , continued on plavix til , recent 4 month history of dyspnea and fatigue, increased over the last few week , exercise nuclear stress test 8-10 balanced circulation, OSH cath 8-14 multi-vessel disease with LM involvement, transferred here for stenting Dr murphy reviewed film , rec CABG Procedure/Surgeries: 11/12/2016 CABG x 4 ADDISON to LAD, RSVG to PDA, RSVG to Ramus and RSVG to Diagonal Airway Difficulty: Grade I - No special instrumentation OR Course: Uncomplicated. 1FFP/1Plt Pacing wires: No Postoperative Course/General Impression: S/p CABGX4. Arrived on levophed for goal maps 70-80.. Extubated. High chest tube output for which he required replacement of coagulation factors. BG and pain control A/P: S/p CABGx4 - ASA, statin, and BB Paroxsymal A-fib - no prior hx. Converted to SR 11/15 with Amio gtt. Back into A- fib with RVR at 0750 on 11/16, Converted to SR at 1900 11/16. Went into afib with controlled HR on 11/19 at 18:20, asymptomatic, HD stable, converted to sinus this AM. Cont PO amio and BB. No Coumadin per Dr. Lee HTN - SBP 110-130s. Cont BB BPH - (+) void after way removal, on home dose Flomax GERD - protonix Disp: 66M from [place], [place]. Supportive Partner at bedside. At this point, Will need f/u with PCP, Cards, and OPD requested). 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 11/08/2016 05/04/2017 Overview: History: PCI ANA to LAD Assessment: 11/12/2016 s/p CABGX4 (ADDISON to LAD, RSVG to PDA, RSVG to Ramus and RSVG to Diagonal) Plan: CAD Core Measures: Aspirin: Yes Beta blockers: Yes Statins: Yes - Crestor 10mg LLQ pain 11/20/2015 12/04/2015 Abdominal pain, acute, right upper quadrant 11/08/2014 12/04/2015 Diverticulitis of colon 05/20/201406/27 Elevated PSA 06/18/2013 11/11/2021 Hematuria 05/23/2012 12/04/2015 Urinary frequency 05/23/2012 07/18/2018 Anal fissure 11/04/2008 12/04/2015 Sciatica 03/06/2007 12/04/2015 documented as of this encounter (statuses as of 03/01/2023) [place]02-16-2022 History of Past illness Narrative* Problem Noted Date Diagnosed Date Resolved Date Squamous cell skin cancer 05/13/2021 Overview: In situ Shoulder impingement syndrome, right 01/02/2020 11/17/2022 Shoulder impingement syndrome, left 01/02/2020 11/17/2022 Arthritis of lumbar spine 09/20/2019 Plantar fasciitis of right foot 12/02/2017 07/18/2018 Paroxysmal A-fib 11/20/2016 05/04/2017 Overview: History: Post op Assessment: Paroxsymal A-fib - no prior hx. Converted to SR 11/15 with Amio gtt. Back into A-fib with RVR at 0750 on 11/16, Converted to SR at 1900 11/16. Went into afib with controlled HR on 11/19 at 18:20, asymptomatic, HD stable, converted to sinus this AM. Plan: Cont PO amio and BB. No Coumadin per Dr. Lee SUMMARY 11/15/2016 11/17/2022 Overview: Indication for Surgery: CAD LVEF: Normal RVF: Normal [facility] Cards: Jason Barajas, Important/Relevant PMH/PSH: ANA to LAD in , previous smoking, hypertension, hyperlipidemia, BPH, GERD, Sciatica, diverticulitis s/p partial colectomy 2016 Preoperative Hospital Course: 66 y/o with CAD ANA to LAD in , continued on plavix til , recent 4 month history of dyspnea and fatigue, increased over the last few week , exercise nuclear stress test 8-10 balanced circulation, OSH cath 8-14 multi-vessel disease with LM involvement, transferred here for stenting Dr murphy reviewed film , rec CABG Procedure/Surgeries: 11/12/2016 CABG x 4 ADDISON to LAD, RSVG to PDA, RSVG to Ramus and RSVG to Diagonal Airway Difficulty: Grade I - No special instrumentation OR Course: Uncomplicated. 1FFP/1Plt Pacing wires: No Postoperative Course/General Impression: S/p CABGX4. Arrived on levophed for goal maps 70-80.. Extubated. High chest tube output for which he required replacement of coagulation factors. BG and pain control A/P: S/p CABGx4 - ASA, statin, and BB Paroxsymal A-fib - no prior hx. Converted to SR 11/15 with Amio gtt. Back into A- fib with RVR at 0750 on 11/16, Converted to SR at 1900 11/16. Went into afib with controlled HR on 11/19 at 18:20, asymptomatic, HD stable, converted to sinus this AM. Cont PO amio and BB. No Coumadin per Dr. Lee HTN - SBP 110-130s. Cont BB BPH - (+) void after way removal, on home dose Flomax GERD - protonix Disp: 66M from [place], [place]. Supportive Partner at bedside. At this point, Will need f/u with PCP, Cards, and OPD requested). 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 11/08/2016 05/04/2017 Overview: History: PCI ANA to LAD Assessment: 11/12/2016 s/p CABGX4 (ADDISON to LAD, RSVG to PDA, RSVG to Ramus and RSVG to Diagonal) Plan: CAD Core Measures: Aspirin: Yes Beta blockers: Yes Statins: Yes - Crestor 10mg LLQ pain 11/20/2015 12/04/2015 Abdominal pain, acute, right upper quadrant 11/08/2014 12/04/2015 Diverticulitis of colon 05/20/201406/27 Elevated PSA 06/18/2013 11/11/2021 Hematuria 05/23/2012 12/04/2015 Urinary frequency 05/23/2012 07/18/2018 Anal fissure 11/04/2008 12/04/2015 Sciatica 03/06/2007 12/04/2015 documented as of this encounter (statuses as of 05/18/2023) [place]02-16-2022 History of Past illness Narrative* Problem Noted Date Diagnosed Date Resolved Date Squamous cell skin cancer 05/13/2021 Overview: In situ Shoulder impingement syndrome, right 01/02/2020 11/17/2022 Shoulder impingement syndrome, left 01/02/2020 11/17/2022 Arthritis of lumbar spine 09/20/2019 Plantar fasciitis of right foot 12/02/2017 07/18/2018 Paroxysmal A-fib 11/20/2016 05/04/2017 Overview: History: Post op Assessment: Paroxsymal A-fib - no prior hx. Converted to SR 11/15 with Amio gtt. Back into A-fib with RVR at 0750 on 11/16, Converted to SR at 1900 11/16. Went into afib with controlled HR on 11/19 at 18:20, asymptomatic, HD stable, converted to sinus this AM. Plan: Cont PO amio and BB. No Coumadin per Dr. Lee SUMMARY 11/15/2016 11/17/2022 Overview: Indication for Surgery: CAD LVEF: Normal RVF: Normal [facility] Cards: Jason Barajas, Important/Relevant PMH/PSH: ANA to LAD in , previous smoking, hypertension, hyperlipidemia, BPH, GERD, Sciatica, diverticulitis s/p partial colectomy 2016 Preoperative Hospital Course: 66 y/o with CAD ANA to LAD in , continued on plavix til , recent 4 month history of dyspnea and fatigue, increased over the last few week , exercise nuclear stress test 8-10 balanced circulation, OSH cath 8-14 multi-vessel disease with LM involvement, transferred here for stenting Dr murphy reviewed film , rec CABG Procedure/Surgeries: 11/12/2016 CABG x 4 ADDISON to LAD, RSVG to PDA, RSVG to Ramus and RSVG to Diagonal Airway Difficulty: Grade I - No special instrumentation OR Course: Uncomplicated. 1FFP/1Plt Pacing wires: No Postoperative Course/General Impression: S/p CABGX4. Arrived on levophed for goal maps 70-80.. Extubated. High chest tube output for which he required replacement of coagulation factors. BG and pain control A/P: S/p CABGx4 - ASA, statin, and BB Paroxsymal A-fib - no prior hx. Converted to SR 11/15 with Amio gtt. Back into A- fib with RVR at 0750 on 11/16, Converted to SR at 1900 11/16. Went into afib with controlled HR on 11/19 at 18:20, asymptomatic, HD stable, converted to sinus this AM. Cont PO amio and BB. No Coumadin per Dr. Lee HTN - SBP 110-130s. Cont BB BPH - (+) void after way removal, on home dose Flomax GERD - protonix Disp: 66M from [place], [place]. Supportive Partner at bedside. At this point, Will need f/u with PCP, Cards, and OPD requested). 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 11/08/2016 05/04/2017 Overview: History: PCI ANA to LAD Assessment: 11/12/2016 s/p CABGX4 (ADDISON to LAD, RSVG to PDA, RSVG to Ramus and RSVG to Diagonal) Plan: CAD Core Measures: Aspirin: Yes Beta blockers: Yes Statins: Yes - Crestor 10mg LLQ pain 11/20/2015 12/04/2015 Abdominal pain, acute, right upper quadrant 11/08/2014 12/04/2015 Diverticulitis of colon 05/20/201406/27 Elevated PSA 06/18/2013 11/11/2021 Hematuria 05/23/2012 12/04/2015 Urinary frequency 05/23/2012 07/18/2018 Anal fissure 11/04/2008 12/04/2015 Sciatica 03/06/2007 12/04/2015 documented as of this encounter (statuses as of 06/06/2023) [place]02-16-2022 History of Past illness Narrative* Problem Noted Date Diagnosed Date Resolved Date Squamous cell skin cancer 05/13/2021 Overview: In situ Shoulder impingement syndrome, right 01/02/2020 11/17/2022 Shoulder impingement syndrome, left 01/02/2020 11/17/2022 Arthritis of lumbar spine 09/20/2019 Plantar fasciitis of right foot 12/02/2017 07/18/2018 Paroxysmal A-fib 11/20/2016 05/04/2017 Overview: History: Post op Assessment: Paroxsymal A-fib - no prior hx. Converted to SR 11/15 with Amio gtt. Back into A-fib with RVR at 0750 on 11/16, Converted to SR at 1900 11/16. Went into afib with controlled HR on 11/19 at 18:20, asymptomatic, HD stable, converted to sinus this AM. Plan: Cont PO amio and BB. No Coumadin per Dr. Lee SUMMARY 11/15/2016 11/17/2022 Overview: Indication for Surgery: CAD LVEF: Normal RVF: Normal [facility] Cards: Jason Barajas, DO Important/Relevant PMH/PSH: ANA to LAD in , previous smoking, hypertension, hyperlipidemia, BPH, GERD, Sciatica, diverticulitis s/p partial colectomy 2016 Preoperative Hospital Course: 66 y/o with CAD ANA to LAD in , continued on plavix til , recent 4 month history of dyspnea and fatigue, increased over the last few week , exercise nuclear stress test 8-10 balanced circulation, OSH cath 8-14 multi-vessel disease with LM involvement, transferred here for stenting Dr murphy reviewed film , rec CABG Procedure/Surgeries: 11/12/2016 CABG x 4 ADDISON to LAD, RSVG to PDA, RSVG to Ramus and RSVG to Diagonal Airway Difficulty: Grade I - No special instrumentation OR Course: Uncomplicated. 1FFP/1Plt Pacing wires: No Postoperative Course/General Impression: S/p CABGX4. Arrived on levophed for goal maps 70-80.. Extubated. High chest tube output for which he required replacement of coagulation factors. BG and pain control A/P: S/p CABGx4 - ASA, statin, and BB Paroxsymal A-fib - no prior hx. Converted to SR 11/15 with Amio gtt. Back into A- fib with RVR at 0750 on 11/16, Converted to SR at 1900 11/16. Went into afib with controlled HR on 11/19 at 18:20, asymptomatic, HD stable, converted to sinus this AM. Cont PO amio and BB. No Coumadin per Dr. Lee HTN - SBP 110-130s. Cont BB BPH - (+) void after way removal, on home dose Flomax GERD - protonix Disp: 66M from [place], [place]. Supportive Partner at bedside. At this point, Will need f/u with PCP, Cards, and OPD requested). 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 11/08/2016 05/04/2017 Overview: History: PCI ANA to LAD Assessment: 11/12/2016 s/p CABGX4 (ADDISON to LAD, RSVG to PDA, RSVG to Ramus and RSVG to Diagonal) Plan: CAD Core Measures: Aspirin: Yes Beta blockers: Yes Statins: Yes - Crestor 10mg LLQ pain 11/20/2015 12/04/2015 Abdominal pain, acute, right upper quadrant 11/08/2014 12/04/2015 Diverticulitis of colon 05/20/201406/27 Elevated PSA 06/18/2013 11/11/2021 Hematuria 05/23/2012 12/04/2015 Urinary frequency 05/23/2012 07/18/2018 Anal fissure 11/04/2008 12/04/2015 Sciatica 03/06/2007 12/04/2015 documented as of this encounter (statuses as of 06/06/2023) [place]07-17-2021 History of Present illness Narrative* Filipe Ivy, RT(R) - 10/11/2020 8:00 AM EDT Radiology Service Progress Note PATIENT NAME: Curtis Guerrier DATE OF SERVICE: October 11, 2020 TIME: 8:11 AM PATIENT IDENTITY VERIFICATION COMPLETED USING TWO (2) IDENTIFIERS: Name and Date of confirmedby patient verbally. FALL SCREENING: Has the patient had 2 falls in the last year or 1 fall with injury or currently using an Ambulatory Assistive Device (Walker, Cane, Wheelchair, Crutches, etc.)? No PATIENT GENDER DATA: Male PATIENT RELEVANT IMPLANT DATA REVIEWED: Not Applicable RADIOLOGY DEPARTMENT: General X-ray: Exam(s) Completed: Chest X-Ray PERIPHERAL IV DATA: Not applicable SIGNED BY: RT Aparna(R) October 11, 2020 8:11 AM documented in this encounterCent[place]01-11-2021 History of Present illness Narrative* Filipe Ivy (Rt), Tech - 04/07/2020 9:10 AM EST Radiology Service Progress Note PATIENT NAME: Curtis Guerrier DATE OF SERVICE: April 07, 2020 TIME: 9:25 AM PATIENT IDENTITY VERIFICATION COMPLETED USING TWO (2) IDENTIFIERS: Name and Date of confirmedby patient verbally. FALL SCREENING: Has the patient had 2 falls in the last year or 1 fall with injury or currently using an Ambulatory Assistive Device (Walker, Cane, Wheelchair, Crutches, etc.)? No PATIENT GENDER DATA: Male PATIENT RELEVANT IMPLANT DATA REVIEWED: Not Applicable RADIOLOGY DEPARTMENT: General X-ray: Exam(s) Completed: Spine X-Ray(s): Cervical AP / LAT / OBL Upper Extremity X-Ray(s): Shoulder, AP / TRUE AP bilateral : PERIPHERAL IV DATA: Not applicable SIGNED BY: RT Aparna April 07, 2020 9:25 AM documented in this encounterCenterville01-11-2021 Miscellaneous Notes* Result Encounter Note - Jersey Knox III - 04/07/2020 9:10 AM EST Curtis, You do have some evidence of arthritis of the neck that could be causing the pain into the upper extremities. Await the results of the nerve conduction study. Jersey Knox III MD * Result Encounter Note - Jersey Knox III - 04/07/2020 9:10 AM EST You do have evidence of moderately severe arthritis of both shoulders and rotator cuff tendinitis which are probably the causes of your inability to raise your shoulders. I suspect that you will be limited in your continued improvement in shoulder range of motion. Jersey Knox III MD * Result Encounter Note - Jersey Knox III - 04/07/2020 9:10 AM EST You do have evidence of moderately severe arthritis of both shoulders and rotator cuff tendinitis which are probably the causes of your inability to raise your shoulders. I suspect that you will be limited in your continued improvement in shoulder range of motion. Jersey Knox III MD documented in this encounterCenterville01-11-2021 Progress note* Result Encounter Note - Jersey Knox III - 04/07/2020 9:10 AM EST Curtis, You do have some evidence of arthritis of the neck that could be causing the pain into the upper extremities. Await the results of the nerve conduction study. Jersey Knox III MD [place]01-11-2021 Progress note* Result Encounter Note - Jersey Knox III - 04/07/2020 9:10 AM EST You do have evidence of moderately severe arthritis of both shoulders and rotator cuff tendinitis which are probably the causes of your inability to raise your shoulders. I suspect that you will be limited in your continued improvement in shoulder range of motion. Jersey Knox III MD [place]09-07-2018 History of Past illness Narrative* Problem Noted Date Resolved Date Plantar fasciitis of right foot 12/02/2017 07/18/2018 Paroxysmal A-fib 11/20/2016 05/04/2017 Overview: History: Post op Assessment: Paroxsymal A-fib - no prior hx. Converted to SR 11/15 with Amio gtt. Back into A-fib with RVR at 0750 on 11/16, Converted to SR at 1900 11/16. Went into afib with controlled HR on 11/19 at 18:20, asymptomatic, HD stable, converted to sinus this AM. Plan: Cont PO amio and BB. No Coumadin per Dr. 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 11/08/2016 05/04/2017 Overview: History: PCI ANA to LAD Assessment: 11/12/2016 s/p CABGX4 (ADDISON to LAD, RSVG to PDA, RSVG to Ramus and RSVG to Diagonal) Plan: CAD Core Measures: Aspirin: Yes Beta blockers: Yes Statins: Yes - Crestor 10mg LLQ pain 11/20/2015 12/04/2015 Abdominal pain, acute, right upper quadrant 10/2612/04/2015 Diverticulitis of colon 05/20/2014 07/19/19 19 Hematuria 05/23/2012 12/04/2015 Urinary frequency 05/23/2012 07/18/2018 Anal fissure 11/04/2008 12/04/2015 Sciatica 03/06/2007 12/04/2015 documented as of this encounter (statuses as of 06/25/2021) [place] [address]-07-2018 History of Past illness Narrative* Problem Noted Date Resolved Date Plantar fasciitis of right foot 12/02/2017 07/18/2018 Paroxysmal A-fib 11/20/2016 05/04/2017 Overview: History: Post op Assessment: Paroxsymal A-fib - no prior hx. Converted to SR 11/15 with Amio gtt. Back into A-fib with RVR at 0750 on 11/16, Converted to SR at 1900 11/16. Went into afib with controlled HR on 11/19 at 18:20, asymptomatic, HD stable, converted to sinus this AM. Plan: Cont PO amio and BB. No Coumadin per Dr. 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 11/08/2016 05/04/2017 Overview: History: PCI ANA to LAD Assessment: 11/12/2016 s/p CABGX4 (ADDISON to LAD, RSVG to PDA, RSVG to Ramus and RSVG to Diagonal) Plan: CAD Core Measures: Aspirin: Yes Beta blockers: Yes Statins: Yes - Crestor 10mg LLQ pain 11/20/2015 12/04/2015 Abdominal pain, acute, right upper quadrant 10/2612/04/2015 Diverticulitis of colon 05/20/2014 07/19/19 19 Hematuria 05/23/2012 12/04/2015 Urinary frequency 05/23/2012 07/18/2018 Anal fissure 11/04/2008 12/04/2015 Sciatica 03/06/2007 12/04/2015 documented as of this encounter (statuses as of 07/10/2021) [place]09-07-2018 History of Past illness Narrative* Problem Noted Date Resolved Date Plantar fasciitis of right foot 12/02/2017 07/18/2018 Paroxysmal A-fib 11/20/2016 05/04/2017 Overview: History: Post op Assessment: Paroxsymal A-fib - no prior hx. Converted to SR 11/15 with Amio gtt. Back into A-fib with RVR at 0750 on 11/16, Converted to SR at 1900 11/16. Went into afib with controlled HR on 11/19 at 18:20, asymptomatic, HD stable, converted to sinus this AM. Plan: Cont PO amio and BB. No Coumadin per Dr. 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 11/08/2016 05/04/2017 Overview: History: PCI ANA to LAD Assessment: 11/12/2016 s/p CABGX4 (ADDISON to LAD, RSVG to PDA, RSVG to Ramus and RSVG to Diagonal) Plan: CAD Core Measures: Aspirin: Yes Beta blockers: Yes Statins: Yes - Crestor 10mg LLQ pain 11/20/2015 12/04/2015 Abdominal pain, acute, right upper quadrant 10/2612/04/2015 Diverticulitis of colon 05/20/2014 07/19/19 19 Elevated PSA 06/18/2013 11/11/2021 Hematuria 05/23/2012 12/04/2015 Urinary frequency 05/23/2012 07/18/2018 Anal fissure 11/04/2008 12/04/2015 Sciatica 03/06/2007 12/04/2015 documented as of this encounter (statuses as of 01/07/2022) [place]09-07-2018 History of Past illness Narrative* Problem Noted Date Resolved Date Plantar fasciitis of right foot 12/02/2017 07/18/2018 Paroxysmal A-fib 11/20/2016 05/04/2017 Overview: History: Post op Assessment: Paroxsymal A-fib - no prior hx. Converted to SR 11/15 with Amio gtt. Back into A-fib with RVR at 0750 on 11/16, Converted to SR at 1900 11/16. Went into afib with controlled HR on 11/19 at 18:20, asymptomatic, HD stable, converted to sinus this AM. Plan: Cont PO amio and BB. No Coumadin per Dr. 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 11/08/2016 05/04/2017 Overview: History: PCI ANA to LAD Assessment: 11/12/2016 s/p CABGX4 (ADDISON to LAD, RSVG to PDA, RSVG to Ramus and RSVG to Diagonal) Plan: CAD Core Measures: Aspirin: Yes Beta blockers: Yes Statins: Yes - Crestor 10mg LLQ pain 11/20/2015 12/04/2015 Abdominal pain, acute, right upper quadrant 10/2612/04/2015 Diverticulitis of colon 05/20/2014 07/19/19 19 Elevated PSA 06/18/2013 11/11/2021 Hematuria 05/23/2012 12/04/2015 Urinary frequency 05/23/2012 07/18/2018 Anal fissure 11/04/2008 12/04/2015 Sciatica 03/06/2007 12/04/2015 documented as of this encounter (statuses as of 03/05/2022) [place]09-07-2018 History of Past illness Narrative* Problem Noted Date Resolved Date Plantar fasciitis of right foot 12/02/2017 07/18/2018 Paroxysmal A-fib 11/20/2016 05/04/2017 Overview: History: Post op Assessment: Paroxsymal A-fib - no prior hx. Converted to SR 11/15 with Amio gtt. Back into A-fib with RVR at 0750 on 11/16, Converted to SR at 1900 11/16. Went into afib with controlled HR on 11/19 at 18:20, asymptomatic, HD stable, converted to sinus this AM. Plan: Cont PO amio and BB. No Coumadin per Dr. 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 11/08/2016 05/04/2017 Overview: History: PCI ANA to LAD Assessment: 11/12/2016 s/p CABGX4 (ADDISON to LAD, RSVG to PDA, RSVG to Ramus and RSVG to Diagonal) Plan: CAD Core Measures: Aspirin: Yes Beta blockers: Yes Statins: Yes - Crestor 10mg LLQ pain 11/20/2015 12/04/2015 Abdominal pain, acute, right upper quadrant 10/2612/04/2015 Diverticulitis of colon 05/20/2014 07/19/19 19 Elevated PSA 06/18/2013 11/11/2021 Hematuria 05/23/2012 12/04/2015 Urinary frequency 05/23/2012 07/18/2018 Anal fissure 11/04/2008 12/04/2015 Sciatica 03/06/2007 12/04/2015 documented as of this encounter (statuses as of 03/31/2022) [place]09-07-2018 History of Past illness Narrative* Problem Noted Date Resolved Date Plantar fasciitis of right foot 12/02/2017 07/18/2018 Paroxysmal A-fib 11/20/2016 05/04/2017 Overview: History: Post op Assessment: Paroxsymal A-fib - no prior hx. Converted to SR 11/15 with Amio gtt. Back into A-fib with RVR at 0750 on 11/16, Converted to SR at 1900 11/16. Went into afib with controlled HR on 11/19 at 18:20, asymptomatic, HD stable, converted to sinus this AM. Plan: Cont PO amio and BB. No Coumadin per Dr. 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 11/08/2016 05/04/2017 Overview: History: PCI ANA to LAD Assessment: 11/12/2016 s/p CABGX4 (ADDISON to LAD, RSVG to PDA, RSVG to Ramus and RSVG to Diagonal) Plan: CAD Core Measures: Aspirin: Yes Beta blockers: Yes Statins: Yes - Crestor 10mg LLQ pain 11/20/2015 12/04/2015 Abdominal pain, acute, right upper quadrant 10/2612/04/2015 Diverticulitis of colon 05/20/2014 07/19/19 19 Elevated PSA 06/18/2013 11/11/2021 Hematuria 05/23/2012 12/04/2015 Urinary frequency 05/23/2012 07/18/2018 Anal fissure 11/04/2008 12/04/2015 Sciatica 03/06/2007 12/04/2015 documented as of this encounter (statuses as of 04/05/2022) [place]09-07-2018 History of Past illness Narrative* Problem Noted Date Resolved Date Plantar fasciitis of right foot 12/02/2017 07/18/2018 Paroxysmal A-fib 11/20/2016 05/04/2017 Overview: History: Post op Assessment: Paroxsymal A-fib - no prior hx. Converted to SR 11/15 with Amio gtt. Back into A-fib with RVR at 0750 on 11/16, Converted to SR at 1900 11/16. Went into afib with controlled HR on 11/19 at 18:20, asymptomatic, HD stable, converted to sinus this AM. Plan: Cont PO amio and BB. No Coumadin per Dr. 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 11/08/2016 05/04/2017 Overview: History: PCI ANA to LAD Assessment: 11/12/2016 s/p CABGX4 (ADDISON to LAD, RSVG to PDA, RSVG to Ramus and RSVG to Diagonal) Plan: CAD Core Measures: Aspirin: Yes Beta blockers: Yes Statins: Yes - Crestor 10mg LLQ pain 11/20/2015 12/04/2015 Abdominal pain, acute, right upper quadrant 10/2612/04/2015 Diverticulitis of colon 05/20/2014 07/19/19 19 Elevated PSA 06/18/2013 11/11/2021 Hematuria 05/23/2012 12/04/2015 Urinary frequency 05/23/2012 07/18/2018 Anal fissure 11/04/2008 12/04/2015 Sciatica 03/06/2007 12/04/2015 documented as of this encounter (statuses as of 05/17/2022) [place]09-07-2018 History of Past illness Narrative* Problem Noted Date Resolved Date Plantar fasciitis of right foot 12/02/2017 07/18/2018 Paroxysmal A-fib 11/20/2016 05/04/2017 Overview: History: Post op Assessment: Paroxsymal A-fib - no prior hx. Converted to SR 11/15 with Amio gtt. Back into A-fib with RVR at 0750 on 11/16, Converted to SR at 1900 11/16. Went into afib with controlled HR on 11/19 at 18:20, asymptomatic, HD stable, converted to sinus this AM. Plan: Cont PO amio and BB. No Coumadin per Dr. 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 11/08/2016 05/04/2017 Overview: History: PCI ANA to LAD Assessment: 11/12/2016 s/p CABGX4 (ADDISON to LAD, RSVG to PDA, RSVG to Ramus and RSVG to Diagonal) Plan: CAD Core Measures: Aspirin: Yes Beta blockers: Yes Statins: Yes - Crestor 10mg LLQ pain 11/20/2015 12/04/2015 Abdominal pain, acute, right upper quadrant 10/2612/04/2015 Diverticulitis of colon 05/20/2014 07/19/19 19 Elevated PSA 06/18/2013 11/11/2021 Hematuria 05/23/2012 12/04/2015 Urinary frequency 05/23/2012 07/18/2018 Anal fissure 11/04/2008 12/04/2015 Sciatica 03/06/2007 12/04/2015 documented as of this encounter (statuses as of 05/24/2022) [place]09-07-2018 History of Past illness Narrative* Problem Noted Date Resolved Date Plantar fasciitis of right foot 12/02/2017 07/18/2018 Paroxysmal A-fib 11/20/2016 05/04/2017 Overview: History: Post op Assessment: Paroxsymal A-fib - no prior hx. Converted to SR 11/15 with Amio gtt. Back into A-fib with RVR at 0750 on 11/16, Converted to SR at 1900 11/16. Went into afib with controlled HR on 11/19 at 18:20, asymptomatic, HD stable, converted to sinus this AM. Plan: Cont PO amio and BB. No Coumadin per Dr. 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 11/08/2016 05/04/2017 Overview: History: PCI ANA to LAD Assessment: 11/12/2016 s/p CABGX4 (ADDISON to LAD, RSVG to PDA, RSVG to Ramus and RSVG to Diagonal) Plan: CAD Core Measures: Aspirin: Yes Beta blockers: Yes Statins: Yes - Crestor 10mg LLQ pain 11/20/2015 12/04/2015 Abdominal pain, acute, right upper quadrant 10/2612/04/2015 Diverticulitis of colon 05/20/2014 07/19/19 19 Elevated PSA 06/18/2013 11/11/2021 Hematuria 05/23/2012 12/04/2015 Urinary frequency 05/23/2012 07/18/2018 Anal fissure 11/04/2008 12/04/2015 Sciatica 03/06/2007 12/04/2015 documented as of this encounter (statuses as of 06/14/2022) [place]09-07-2018 History of Past illness Narrative* Problem Noted Date Resolved Date Plantar fasciitis of right foot 12/02/2017 07/18/2018 Paroxysmal A-fib 11/20/2016 05/04/2017 Overview: History: Post op Assessment: Paroxsymal A-fib - no prior hx. Converted to SR 11/15 with Amio gtt. Back into A-fib with RVR at 0750 on 11/16, Converted to SR at 1900 11/16. Went into afib with controlled HR on 11/19 at 18:20, asymptomatic, HD stable, converted to sinus this AM. Plan: Cont PO amio and BB. No Coumadin per Dr. 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 11/08/2016 05/04/2017 Overview: History: PCI ANA to LAD Assessment: 11/12/2016 s/p CABGX4 (ADDISON to LAD, RSVG to PDA, RSVG to Ramus and RSVG to Diagonal) Plan: CAD Core Measures: Aspirin: Yes Beta blockers: Yes Statins: Yes - Crestor 10mg LLQ pain 11/20/2015 12/04/2015 Abdominal pain, acute, right upper quadrant 10/2612/04/2015 Diverticulitis of colon 05/20/2014 07/19/19 19 Elevated PSA 06/18/2013 11/11/2021 Hematuria 05/23/2012 12/04/2015 Urinary frequency 05/23/2012 07/18/2018 Anal fissure 11/04/2008 12/04/2015 Sciatica 03/06/2007 12/04/2015 documented as of this encounter (statuses as of 07/23/2022) [place]08-01-2017 Evaluation note* Diagnosis Onset Date Resolution Status Atherosclerotic heart diseas e of [place] coronary artery without angina pectoris chronic Essential hypertension chron ic History of coronary artery bypass surgery October, chronic Hyperlipidemia chronic Paroxysmal atrial fibrillation chronic History of placement of sten t in LAD coronary artery March, resolved [facility] Work Phone: Evaluation note* Diagnosis Scar- Primary Scar condition and fibrosis of skin [facility] [place] [facility]* Diagnosis ASHD (arteriosclerotic heart disease) Coronary atherosclerosis of unspecified type of vessel, [place] or graft [facility] [place] [facility]* Diagnosis Essential hypertension, benign [facility] [place] [facility]* Diagnosis Bronchitis- Primary Bronchitis, not specified as acute or chronic Paroxysmal atrial fibrillation (HCC) Atrial fibrillation Essential hypertension, benign History of COVID-19 [facility] [place] [facility]* Diagnosis ASHD (arteriosclerotic heart disease) Coronary atherosclerosis of unspecified type of vessel, [place] or graft documented in this encounter [facility] [place] [facility]* Diagnosis Skin exam, screening for cancer- Primary Screening for malignant neoplasm of the skin Blue nevus Benign neoplasm of skin, site unspecified Inflamed seborrheic keratosis AK (actinic keratosis) Actinic keratosis Skin pain Disturbance of skin sensation Diffuse photodamage of skin Other chronic dermatitis due to solar radiation [facility]* Diagnosis Onset Date Resolution Status Obesity acute Atherosclerotic heart diseas e of [place] coronary artery without angina pectoris chronic Essential hypertension chron ic Hyperlipidemia chronic Paroxysmal atrial fibrillation [facility] Work Phone: Evaluation note* Diagnosis Onset Date Resolution Status Obesity acute Atherosclerotic heart diseas e of [place] coronary artery without angina pectoris chronic Essential hypertension chron ic Hyperlipidemia chronic Paroxysmal atrial fibrillation chronic Obesity acute Atherosclerotic heart diseas e of [place] coronary artery without angina pectoris chronic Essential hypertension chron ic Hyperlipidemia chronic Paroxysmal atrial fibrillation [facility] Work Phone: Evaluation note* Diagnosis Paroxysmal atrial fibrillation (HCC)- Primary Atrial fibrillation ASHD (arteriosclerotic heart disease) Coronary atherosclerosis of unspecified type of vessel, [place] or graft Essential hypertension, benign History of squamous cell carcinoma Personal history of malignant neoplasm of other site Lipid disorder Unspecified disorder of lipoid metabolism documented in this encounter [facility] [place] [facility]* Diagnosis Essential hypertension, benign- Primary Hyperlipidemia with target LDL less than 100 Other and unspecified hyperlipidemia ASHD (arteriosclerotic heart disease) Coronary atherosclerosis of unspecified type of vessel, [place] or graft Paroxysmal atrial fibrillation (HCC) Atrial fibrillation Gastroesophageal reflux disease without esophagitis Esophageal reflux History of squamous cell carcinoma Personal history of malignant neoplasm of other site Lipid disorder Unspecified disorder of lipoid metabolism Screening for prostate cancer Special screening for malignant neoplasm of prostate documented in this encounter [facility] [place] [facility]* Diagnosis Essential hypertension, benign documented in this encounter [facility] [place] [facility]* Diagnosis Onset Date Resolution Status Atherosclerotic heart diseas e of [place] coronary artery without angina pectoris chronic Essential hypertension chron ic Hyperlipidemia chronic Paroxysmal atrial fibrillation [facility] Work Phone: Evaluation note* Diagnosis Flank pain- Primary Abdominal pain, unspecified site Gross hematuria Flank pain Abdominal pain, unspecified site Gross hematuria documented in this encounter [facility] [place] [facility]* Diagnosis Flank pain Abdominal pain, unspecified site Gross hematuria documented in this [facility]* Diagnosis Kidney stone on right side- Primary Calculus of kidney Flank pain Abdominal pain, unspecified site Screening for genitourinary condition Screening for other and unspecified genitourinary condition [facility] [place] [facility]* Diagnosis Kidney stone on right side- Primary Calculus of kidney documented in this encounter [facility] [place] [facility]* Diagnosis Skin exam, screening for cancer- Primary Screening for malignant neoplasm of the skin Hx of nonmelanoma skin cancer Personal history of other malignant neoplasm of skin Diffuse photodamage of skin Other chronic dermatitis due to solar radiation Blue nevus Benign neoplasm of skin, site unspecified documented in this encounter [facility] note* Diagnosis Preop testing- Primary Preoperative examination, unspecified Arteriosclerosis of coronary artery Coronary atherosclerosis of unspecified type of vessel, [place] or graft Paroxysmal atrial fibrillation (HCC) Atrial fibrillation Gastroesophageal reflux disease without esophagitis Esophageal reflux Essential hypertension, benign Hyperlipidemia with target LDL less than 100 Other and unspecified hyperlipidemia Obesity (BMI 30-39.9) Obesity, unspecified Calculus, renal [N20.0] Calculus of kidney Calculus, renal Calculus of kidney * Assessment & Plan Note - Jeremy Ruiz APRN.CNP - 09/08/2023 10:53 AM EDTAssociated Problem(s): Obesity (BMI 30-39.9) Assessment: BMI 34.90 * Assessment & Plan Note - Jeremy Ruiz APRN.CNP - 09/08/2023 10:53 AM EDTAssociated Problem(s): Hyperlipidemia with target LDL less than 100 Assessment: Taking rosuvastatin 40 mg daily. * Assessment & Plan Note - Jeremy Ruiz APRN.CNP - 09/08/2023 10:53 AM EDTAssociated Problem(s): Essential hypertension, benign Assessment: Taking amlodipine; losartan Plan: Losartan-patient instructed to hold day of surgery. * Assessment & Plan Note - Jeremy Ruiz APRN.CNP - 09/08/2023 10:52 AM EDTAssociated Problem(s): GERD (gastroesophageal reflux disease) Assessment: Taking omeprazole * Assessment & Plan Note - Jeremy Ruiz APRN.CNP - 09/08/2023 10:51 AM EDTAssociated Problem(s): Paroxysmal atrial fibrillation (HCC) Assessment: Followed by Cardiology - taking Eliquis; metoprolol Plan: Eliquis-patient instructed to notify surgeon and prescriber for preop instructions. Metoprolol patient instructed to take day of surgery. * Assessment & Plan Note - Jeremy Ruiz APRN.CNP - 09/08/2023 10:51 AM EDTAssociated Problem(s): Arteriosclerosis of coronary artery Assessment: Followed by Cardiology - H/O CABG - H/O cardiac stent - taking aspirin; metoprolol Plan: Aspirin-patient instructed to notify surgeon and prescriber for preop instructions * Assessment & Plan Note - Jeremy Ruiz APRN.CNP - 09/08/2023 7:45 AM EDT Associated Problem(s): Preop testing Assessment : See Note for medical conditions which may affect riccardo-operative course was addressed in visit today. [facility] Kidney stone on right side- Primary Calculus of kidney [facility] Diagnosis ASHD (arteriosclerotic heart disease) Coronary atherosclerosis of unspecified type of vessel, [place] or graft [facility] Kidney stone on right side- Primary Calculus of kidney Flank pain Abdominal pain, unspecified site [facility] Diagnosis Obesity, Class II, BMI 35-39.9- Primary Obesity, unspecified ASHD (arteriosclerotic heart disease) Coronary atherosclerosis of unspecified type of vessel, [place] or graft SOB (shortness of breath) Shortness of breath Essential hypertension, benign Paroxysmal atrial fibrillation (HCC) Atrial fibrillation S/P CABG x 4 Postsurgical aortocoronary bypass status [facility] this encounter [facility] [place] [facility]* Diagnosis Kidney stone on right side Calculus of kidney [facility] [place] [facility]* Diagnosis Flank pain- Primary Abdominal pain, unspecified site Kidney stone on right side Calculus of kidney documented in this encounter [facility] [place] [facility]* Diagnosis Cellulitis of skin- Primary Cellulitis and abscess of unspecified site documented [facility] this encounter [facility] [place] [facility]* Diagnosis Laryngitis- Primary Acute laryngitis, without mention of obstruction Cellulitis of skin Cellulitis and abscess of unspecified site documented [facility] this encounter [facility] [place] [facility]* Diagnosis Preop testing- Primary Preoperative examination, unspecified Arteriosclerosis of coronary artery Coronary atherosclerosis of unspecified type of vessel, [place] or graft Paroxysmal atrial fibrillation (HCC) Atrial fibrillation Gastroesophageal reflux disease without esophagitis Esophageal reflux Essential hypertension, benign Hyperlipidemia with target LDL less than 100 Other and unspecified hyperlipidemia Obesity (BMI 30-39.9) Obesity, unspecified Calculus, renal [N20.0] Calculus of kidney Vocal cord paralysis- Primary Paralysis of vocal cords or larynx, unspecified Essential hypertension, benign Hyperlipidemia with target LDL less than 100 Other and unspecified hyperlipidemia ASHD (arteriosclerotic heart disease) Coronary atherosclerosis of unspecified type of vessel, [place] or graft Paroxysmal atrial fibrillation (HCC) Atrial fibrillation Gastroesophageal reflux disease without esophagitis Esophageal reflux Benign prostatic hyperplasia with urinary obstruction Lipid disorder Unspecified disorder of lipoid metabolism Hearing loss, unspecified hearing loss type, unspecified laterality Obesity (BMI 30-39.9) Obesity, unspecified Screening for depression Encounter for screening examination for other mental health and behavioral disorders documented [facility] this encounter [facility] [place] [facility]* Diagnosis Bronchitis Bronchitis, not specified as acute or chronic Preop testing- Primary Preoperative examination, unspecified Arteriosclerosis of coronary artery Coronary atherosclerosis of unspecified type of vessel, [place] or graft Paroxysmal atrial fibrillation (HCC) Atrial fibrillation Gastroesophageal reflux disease without esophagitis Esophageal reflux Essential hypertension, benign Hyperlipidemia with target LDL less than 100 Other and unspecified hyperlipidemia Obesity (BMI 30-39.9) Obesity, unspecified Calculus, renal [N20.0] Calculus of kidney [facility] [place] [facility]* Diagnosis Preop testing- Primary Preoperative examination, unspecified Arteriosclerosis of coronary artery Coronary atherosclerosis of unspecified type of vessel, [place] or graft Paroxysmal atrial fibrillation (HCC) Atrial fibrillation Gastroesophageal reflux disease without esophagitis Esophageal reflux Essential hypertension, benign Hyperlipidemia with target LDL less than 100 Other and unspecified hyperlipidemia Obesity (BMI 30-39.9) Obesity, unspecified Calculus, renal [N20.0] Calculus of kidney ASHD (arteriosclerotic heart disease) Coronary atherosclerosis of unspecified type of vessel, [place] or graft SOB (shortness of breath) Shortness of breath documented in this encounter [facility] [place] [facility]* Diagnosis SOB (shortness of breath) Shortness of breath Preop testing- Primary Preoperative examination, unspecified Arteriosclerosis of coronary artery Coronary atherosclerosis of unspecified type of vessel, [place] or graft Paroxysmal atrial fibrillation (HCC) Atrial fibrillation Gastroesophageal reflux disease without esophagitis Esophageal reflux Essential hypertension, benign Hyperlipidemia with target LDL less than 100 Other and unspecified hyperlipidemia Obesity (BMI 30-39.9) Obesity, unspecified Calculus, renal [N20.0] Calculus of kidney documented in this [facility] [place] [facility]* Diagnosis Preop testing- Primary Preoperative examination, unspecified Arteriosclerosis of coronary artery Coronary atherosclerosis of unspecified type of vessel, [place] or graft Paroxysmal atrial fibrillation (HCC) Atrial fibrillation Gastroesophageal reflux disease without esophagitis Esophageal reflux Essential hypertension, benign Hyperlipidemia with target LDL less than 100 Other and unspecified hyperlipidemia Obesity (BMI 30-39.9) Obesity, unspecified Calculus, renal [N20.0] Calculus of kidney Encounter for immunization Need for other specified prophylactic vaccination against single bacterial disease documented in this encounter [facility] [place] [facility]* Diagnosis Shoulder impingement syndrome, left Shoulder impingement syndrome, right Cervical radiculopathy Brachial neuritis or radiculitis nos Preop testing- Primary Preoperative examination, unspecified Arteriosclerosis of coronary artery Coronary atherosclerosis of unspecified type of vessel, [place] or graft Paroxysmal atrial fibrillation (HCC) Atrial fibrillation Gastroesophageal reflux disease without esophagitis Esophageal reflux Essential hypertension, benign Hyperlipidemia with target LDL less than 100 Other and unspecified hyperlipidemia Obesity (BMI 30-39.9) Obesity, unspecified Calculus, renal [N20.0] Calculus of kidney documented in this encounter [facility] [place] [facility]* Diagnosis Preop testing- Primary Preoperative examination, unspecified Arteriosclerosis of coronary artery Coronary atherosclerosis of unspecified type of vessel, [place] or graft Paroxysmal atrial fibrillation (HCC) Atrial fibrillation Gastroesophageal reflux disease without esophagitis Esophageal reflux Essential hypertension, benign Hyperlipidemia with target LDL less than 100 Other and unspecified hyperlipidemia Obesity (BMI 30-39.9) Obesity, unspecified Calculus, renal [N20.0] Calculus of kidney Primary hypertension- Primary Unspecified essential hypertension Coronary artery disease involving [place] coronary artery of [place] heart without angina pectoris S/P CABG x 4 Postsurgical aortocoronary bypass status Paroxysmal atrial fibrillation (HCC) Atrial fibrillation documented in this encounter [facility] [place] [facility]* Diagnosis Preop testing- Primary Preoperative examination, unspecified Arteriosclerosis of coronary artery Coronary atherosclerosis of unspecified type of vessel, [place] or graft Paroxysmal atrial fibrillation (HCC) Atrial fibrillation Gastroesophageal reflux disease without esophagitis Esophageal reflux Essential hypertension, benign Hyperlipidemia with target LDL less than 100 Other and unspecified hyperlipidemia Obesity (BMI 30-39.9) Obesity, unspecified Calculus, renal [N20.0] Calculus of kidney Shortness of breath- Primary documented in this [facility] [place] [facility]* Diagnosis Preop testing- Primary Preoperative examination, unspecified Arteriosclerosis of coronary artery Coronary atherosclerosis of unspecified type of vessel, [place] or graft Paroxysmal atrial fibrillation (HCC) Atrial fibrillation Gastroesophageal reflux disease without esophagitis Esophageal reflux Essential hypertension, benign Hyperlipidemia with target LDL less than 100 Other and unspecified hyperlipidemia Obesity (BMI 30-39.9) Obesity, unspecified Calculus, renal [N20.0] Calculus of kidney Weight gain- Primary Abnormal weight gain Essential hypertension, benign Paroxysmal atrial fibrillation (HCC) Atrial fibrillation ASHD (arteriosclerotic heart disease) Coronary atherosclerosis of unspecified type of vessel, [place] or graft Fatigue, unspecified type Class 2 obesity with body mass index (BMI) of 37.0 to 37.9 in adult, unspecified obesity type, unspecified whether serious comorbidity present Medication monitoring encounter Encounter for therapeutic drug monitoring JONAH (obstructive sleep apnea) Obstructive sleep apnea (adult) (pediatric) Screening for diabetes mellitus Sequelae of hyperalimentation Other hyperalimentation documented in this encounter [facility] [place] [facility]* Diagnosis Preop testing- Primary Preoperative examination, unspecified Arteriosclerosis of coronary artery Coronary atherosclerosis of unspecified type of vessel, [place] or graft Paroxysmal atrial fibrillation (HCC) Atrial fibrillation Gastroesophageal reflux disease without esophagitis Esophageal reflux Essential hypertension, benign Hyperlipidemia with target LDL less than 100 Other and unspecified hyperlipidemia Obesity (BMI 30-39.9) Obesity, unspecified Calculus, renal [N20.0] Calculus of kidney ASHD (arteriosclerotic heart disease) Coronary atherosclerosis of unspecified type of vessel, [place] or graft documented [facility] this [facility] [place] [facility]* Diagnosis Preop testing- Primary Preoperative examination, unspecified Arteriosclerosis of coronary artery Coronary atherosclerosis of unspecified type of vessel, [place] or graft Paroxysmal atrial fibrillation (HCC) Atrial fibrillation Gastroesophageal reflux disease without esophagitis Esophageal reflux Essential hypertension, benign Hyperlipidemia with target LDL less than 100 Other and unspecified hyperlipidemia Obesity (BMI 30-39.9) Obesity, unspecified Calculus, renal [N20.0] Calculus of kidney Primary hypertension- Primary Unspecified essential hypertension Hyperlipidemia with target LDL less than 100 Other and unspecified hyperlipidemia Paroxysmal atrial fibrillation (HCC) Atrial fibrillation Coronary artery disease involving [place] coronary artery of [place] heart without angina pectoris Gastroesophageal reflux disease without esophagitis Esophageal reflux History of squamous cell carcinoma Personal history of malignant neoplasm of other site Obesity, Class II, BMI 35-39.9 Obesity, unspecified Dysphagia, unspecified type Hyperglycemia Other abnormal glucose Pain of right upper arm Pain in limb documented [facility] this [facility] [place] [facility]* Diagnosis Preop testing- Primary Preoperative examination, unspecified Arteriosclerosis of coronary artery Coronary atherosclerosis of unspecified type of vessel, [place] or graft Paroxysmal atrial fibrillation (HCC) Atrial fibrillation Gastroesophageal reflux disease without esophagitis Esophageal reflux Essential hypertension, benign Hyperlipidemia with target LDL less than 100 Other and unspecified hyperlipidemia Obesity (BMI 30-39.9) Obesity, unspecified Calculus, renal [N20.0] Calculus of kidney Pain of right upper arm Pain in limb documented in this [facility] [place] [facility]* Diagnosis Preop testing- Primary Preoperative examination, unspecified Arteriosclerosis of coronary artery Coronary atherosclerosis of unspecified type of vessel, [place] or graft Paroxysmal atrial fibrillation (HCC) Atrial fibrillation Gastroesophageal reflux disease without esophagitis Esophageal reflux Essential hypertension, benign Hyperlipidemia with target LDL less than 100 Other and unspecified hyperlipidemia Obesity (BMI 30-39.9) Obesity, unspecified Calculus, renal [N20.0] Calculus of kidney JONAH (obstructive sleep apnea)- Primary Obstructive sleep apnea (adult) (pediatric) documented in this encounter [facility] [place] [facility]* Diagnosis Preop testing- Primary Preoperative examination, unspecified Arteriosclerosis of coronary artery Coronary atherosclerosis of unspecified type of vessel, [place] or graft Paroxysmal atrial fibrillation (HCC) Atrial fibrillation Gastroesophageal reflux disease without esophagitis Esophageal reflux Essential hypertension, benign Hyperlipidemia with target LDL less than 100 Other and unspecified hyperlipidemia Obesity (BMI 30-39.9) Obesity, unspecified Calculus, renal [N20.0] Calculus of kidney Essential hypertension, benign [facility] [place] [facility]* Diagnosis Preop testing- Primary Preoperative examination, unspecified Arteriosclerosis of coronary artery Coronary atherosclerosis of unspecified type of vessel, [place] or graft Paroxysmal atrial fibrillation (HCC) Atrial fibrillation Gastroesophageal reflux disease without esophagitis Esophageal reflux Essential hypertension, benign Hyperlipidemia with target LDL less than 100 Other and unspecified hyperlipidemia Obesity (BMI 30-39.9) Obesity, unspecified Calculus, renal [N20.0] Calculus of kidney Gastroesophageal reflux disease without esophagitis Esophageal reflux Esophageal dysphagia Dysphagia, pharyngoesophageal phase documented [facility] this encounter [facility] [place] [facility]* Diagnosis Preop testing- Primary Preoperative examination, unspecified Arteriosclerosis of coronary artery Coronary atherosclerosis of unspecified type of vessel, [place] or graft Paroxysmal atrial fibrillation (HCC) Atrial fibrillation Gastroesophageal reflux disease without esophagitis Esophageal reflux Essential hypertension, benign Hyperlipidemia with target LDL less than 100 Other and unspecified hyperlipidemia Obesity (BMI 30-39.9) Obesity, unspecified Calculus, renal [N20.0] Calculus of kidney Heartburn- Primary Gastroesophageal reflux disease without esophagitis Esophageal reflux Esophageal dysphagia Dysphagia, pharyngoesophageal phase documented in this encounter [facility] [place] [facility]* Diagnosis Preop testing- Primary Preoperative examination, unspecified Arteriosclerosis of coronary artery Coronary atherosclerosis of unspecified type of vessel, [place] or graft Paroxysmal atrial fibrillation (HCC) Atrial fibrillation Gastroesophageal reflux disease without esophagitis Esophageal reflux Essential hypertension, benign Hyperlipidemia with target LDL less than 100 Other and unspecified hyperlipidemia Obesity (BMI 30-39.9) Obesity, unspecified Calculus, renal [N20.0] Calculus of kidney Gastroesophageal reflux disease without esophagitis- Primary Esophageal reflux Hiatal hernia Diaphragmatic hernia without mention of obstruction or gangrene [facility] [place] [facility]* Diagnosis Preop testing- Primary Preoperative examination, unspecified Arteriosclerosis of coronary artery Coronary atherosclerosis of unspecified type of vessel, [place] or graft Paroxysmal atrial fibrillation (HCC) Atrial fibrillation Gastroesophageal reflux disease without esophagitis Esophageal reflux Essential hypertension, benign Hyperlipidemia with target LDL less than 100 Other and unspecified hyperlipidemia Obesity (BMI 30-39.9) Obesity, unspecified Calculus, renal [N20.0] Calculus of kidney JONAH (obstructive sleep apnea)- Primary Obstructive sleep apnea (adult) (pediatric) Obesity, Class II, BMI 35-39.9 Obesity, unspecified Primary hypertension Unspecified essential hypertension documented in this encounter [facility] for referral (narrative)* Diagnostic Procedure Only (Routine) - Pending Review Specialty Diagnoses / Procedures Referred By Contac t Referred To Contact US IMAGING Diagnoses Kidney stone on right side Flank pain Procedures US KIDNEY/BLADDER US RETROPERITONEAL REAL TIME W/IMAGE COMPLETE Rock Baldwin PA-C [address] [id number] [facility] [place] [address] Referral ID Status Reason Start Date Expiration Date Visits Requested Visits Authorized [id number] Pending Review Auto-Generat ed Referral 08/24/2023 09/15/2024 1 1 [facility] for referral (narrative)* Diagnostic Procedure Only (Routine) - Authorized Specialty Diagnoses / Procedures Referred By Contac t Referred To Contact US IMAGING Diagnoses Kidney stone on right side Procedures US KIDNEY/BLADDER US RETROPERITONEAL REAL TIME W/[place] [address] [place] [id number] [facility] [place] [address] Referral ID Status Reason Start Date Expiration Date Visits Requested Visits Authorized [id number] Authorized Auto-Generat ed Referral 08/23/2023 09/21/2024 1 1 * Diagnostic Procedure Only (Routine) - Authorized Specialty Diagnoses / Procedures Referred By Contac t Referred To Contact XR IMAGING Diagnoses Kidney stone on right side Procedures XR ABDOMEN 1V SUPINE RADIOLOGIC EXAM [place]BDOM[place] [address] [place] [address] [place] [phone] [place] [id number] Referral ID Status Reason Start Date Expiration Date Visits Requested Visits Authorized [id number] Authorized Auto-Generat ed Referral 08/23/2023 09/21/2024 1 1 [facility] for referral (narrative)* Diagnostic Procedure Only (Routine) - Pending Review Specialty Diagnoses / Procedures Referred By Contac t Referred To Contact XR IMAGING Diagnoses Kidney stone on right side Procedures XR ABDOMEN 1V SUPINE RADIOLOGIC EXAM [place]BDOM[place] [address] [place] [phone] Xr Imaging [id number] Referral ID Status Reason Start Date Expiration Date Visits Requested Visits Authorized [id number] Pending Review Auto-Generat ed Referral 09/16/2023 10/15/2024 1 1 [facility] for referral (narrative)* Diagnostic Procedure Only (Routine) - Authorized Specialty Diagnoses / Procedures Referred By Contac t Referred To Contact MOLECULAR & FUNCTIONAL IMAGING Diagnoses ASHD (arteriosclerotic heart disease) SOB (shortness of breath) Procedures NM CARDIAC PERF STRESS/EXERCISE MYOCARDIAL SPECT MULTIPLE STUDIES Josh Lynch MD [address] [facility], [address] [place] [address] Molecular & Functional Imaging [address] [place] [address] Referral ID Status Reason Start Date Expiration Date Visits Requested Visits Authorized [id number] Authorized Auto-Generat ed Referral 10/17/2023 11/01/2024 1 1 [facility] for referral (narrative)* Diagnostic Procedure Only (Routine) - Closed Specialty Diagnoses / Procedures Referred By Contac t Referred To Contact XR IMAGING Diagnoses Kidney stone on right side Procedures XR ABDOMEN 1V SUPINE RADIOLOGIC EXAM ABDOMEN 1 VIEW Curtis Tinoco MD [address] [place] [address] [place] [address] Referral ID Status Reason Start Date Expiration Date V isits Requested Visits Authorized [id number] Closed Auto-Generate d Referral 09/16/2023 10/15/2024 1 1 [facility] for referral (narrative)* Diagnostic Procedure Only (Routine) - New Request Specialty Diagnoses / Procedures Referred By Salvador t Referred To Contact XR IMAGING Diagnoses Flank pain Kidney stone on right side Procedures XR ABDOMEN 1V SUPINE RADIOLOGIC EXAM ABDOMEN 1 VIEW Curtis Tinoco MD [address] [place] [address] [place] [address] Referral ID Status Reason Start Date Expiration Date Visits Requested Visits Authorized [id number] New Request Auto-Generat ed Referral 10/17/2023 11/15/2024 1 1 [facility] for referral (narrative)* Diagnostic Procedure Only (Routine) - Closed Specialty Diagnoses / Procedures Referred By Salvador dozier Referred To Contact MOLECULAR & FUNCTIONAL IMAGING Diagnoses ASHD (arteriosclerotic heart disease) SOB (shortness of breath) Procedures NM CARDIAC PERF STRESS/EXERCISE MYOCARDIAL SPECT MULTIPLE STUDIES Josh Lynch MD [address] [facility], [address] [place] [address] Molecular & Functional Imaging [address] [place] [address] Referral ID Status Reason Start Date Expiration Date V isits Requested Visits Authorized [id number] Closed Auto-Generate d Referral 10/17/2023 11/01/2024 1 1 [facility] for referral (narrative)* Outpatient Procedure (Routine) - Authorized Specialty Diagnoses / Procedures Referred By Monicoac t Referred To Contact [facility] Diagnoses CAD (coronary artery disease) Primary hypertension Procedures ECHO ECHO TTHRC R-T 2D W/WOM-MODE COMPL SPEC&COLR Josh Alonso MD [address], [address] [place] [address] [address] Referral ID Status Reason Start Date Expiration Date Visits Requested Visits Authorized [id number] Authorized Auto-Generat ed Referral 04/30/2024 04/16/2025 1 1 [facility] for referral (narrative)* Outpatient Procedure (Routine) - Authorized Specialty Diagnoses / Procedures Referred By Contac t Referred To Contact [facility] Diagnoses Shortness of breath Procedures ECHO ECHO TTHRC R-T 2D W/WOM-MODE COMPL SPEC&COLR Josh Alonso MD [address], [address] [place] [address] [address] Referral ID Status Reason Start Date Expiration Date Visits Requested Visits Authorized [id number] Authorized Auto-Generat ed Referral 04/23/2024 04/16/2025 1 1 [facility] for referral (narrative)* Diagnostic Procedure Only (Routine) - Authorized Specialty Diagnoses / Procedures Referred By Contac t Referred To Contact [facility] Diagnoses Fatigue, unspecified type JONAH (obstructive sleep apnea) Procedures HOME SLEEP APNEA TEST (HSAT) SLEEP STD AIRFLOW HRT RATE&O2 SAT EFFORT Jason Monteiro MD [address] [place] [address] [address] Referral ID Status Reason Start Date Expiration Date Visits Requested Visits Authorized [id number] Authorized Auto-Generat ed Referral 04/17/2024 04/17/2025 1 1 [facility] for visit Narrative* Diagnostic Procedure Only (Routine) - Closed Specialty Diagnoses / Procedures Referred By Contac t Referred To Contact XR IMAGING Diagnoses Kidney stone on right side Procedures XR ABDOMEN 1V SUPINE RADIOLOGIC EXAM ABDOMEN 1 VIEW Curtis Tinoco MD [address] [place] [address] [place] [address] Referral ID Status Reason Start Date Expiration Date V isits Requested Visits Authorized [id number] Closed Auto-Generate d Referral 09/16/2023 10/15/2024 1 1 [facility] for visit Narrative* Diagnostic Procedure Only (Routine) - Closed Specialty Diagnoses / Procedures Referred By Contac t Referred To Contact MOLECULAR & FUNCTIONAL IMAGING Diagnoses ASHD (arteriosclerotic heart disease) SOB (shortness of breath) Procedures NM CARDIAC PERF STRESS/EXERCISE MYOCARDIAL SPECT MULTIPLE STUDIES Josh Lynch MD [address] [facility], [address] [place] [address] Molecular & Functional Imaging [address] [place] [address] Referral ID Status Reason Start Date Expiration Date V isits Requested Visits Authorized [id number] Closed Auto-Generate d Referral 10/17/2023 11/01/2024 1 1 [facility] for visit Narrative* Diagnostic Procedure Only (Routine) - Closed Specialty Diagnoses / Procedures Referred By Contac t Referred To Contact XR IMAGING Diagnoses Pain of right upper arm Procedures XR SHOULDER GENERAL 3V OR MORE AP/TRUE AP/OTHER RIGHT RADEX SHOULDER COMPLETE MINIMUM 2 VIEWS Jason Cook MD [address] [place] [address] Phone: tel: fax: [place] [address] Referral ID Status Reason Start Date Expiration Date V isits Requested Visits Authorized [id number] Closed Auto-Generate d Referral 05/30/2024 06/29/2025 1 1 [facility] for visit Narrative* Outpatient Procedure (Routine) - Closed Specialty Diagnoses / Procedures Referred By Contac t Referred To Contact [facility] Diagnoses Gastroesophageal reflux disease without esophagitis Dysphagia, unspecified type Procedures EGD DIAGNOSTIC ESOPHAGOGASTRODUODENOSC OPY TRANSORAL DIAGNOSTIC Nichole Newton MD [address] [place] [address] Phone: tel: fax: [facility] [address] [place] [address] Referral ID Status Reason Start Date Expiration Date V isits Requested Visits Authorized [id number] Closed Auto-Generate d Referral 06/11/2024 06/11/2025 1 1 [place] Summary Purpose Family History Relationship Condition Age at Onset Recorded Date/T perla mother Coronary artery disease Unknown Cerebrovascular accident (CVA) Unknown History of coronary artery bypass surgery Unknown father Hypertension Unknown brother Coronary artery disease Unknown Presence of stent in coronary artery Unkn own sister Coronary artery disease Unknown Malignant neoplasm Unknown Advance Directives Documents on File Type Date Recorded Patient [employer] Expl anation Advance Directive(s) 06/12/2020 11:31 AM Advance Directive(s) 05/23/2020 3:52 PM Advance Directive(s) 11/27/2019 10:28 AM ad v dir on file 2011 Advance Directive(s) 04/26/2017 9:21 AM Advance Directive(s) 04/14/2017 12:00 PM Advance Directive(s) 11/08/2016 6:59 PM Advance Directive(s) 04/13/2016 2:48 PM Advance Directive(s) 04/06/2016 3:26 PM Advance Directive(s) 11/02/2011 8:42 PM Advance Directive Response Recorded Date/ Time Advance Directives Yes April 14, 2016 8:35pm Living Will No November 22 5:32am Power of Director Financial Services No November 22 5:32am Documents on File Type Date Recorded Patient [employer] Expl anation Advance Directive(s) 11/02/2011 8:42 PM Advance Directive Response Recorded Date/ Time Advance Directives Yes April 14, 2016 8:35pm Living Will No December 25, 2022 1:51pm Power of Director Financial Services No November 1:51pm Documents on File Type Date Recorded Patient [employer] Expl anation Advance Directive(s) 11/02/2011 8:42 PM Chief Complaint and Reason for Visit Chief Complaint 9 M FU CAD PCI CABG CAD PCI CABG Reason for Visit Atherosclerotic hear t disease of [place] coronary artery without angina pectoris Essential hypertension History of coronary artery bypass surgery Hyperlipidemia Paroxysmal atrial fibrillation History of placement of stent in LAD coronary artery Chief Complaint 6 M FU WW Reason for Visit Obesity Atherosclerotic heart disease of [place] coronary artery without angina pectoris Essential hypertension Hyperlipidemia Paroxysmal atrial fibrillation Chief Complaint 6 M FU WW 3 M FU WW Reason for Visit Obesity Atherosclerotic heart disease of [place] coronary artery without angina pectoris Essential hypertension Hyperlipidemia Paroxysmal atrial fibrillation Obesity Atherosclerotic heart disease of [place] coronary artery without angina pectoris Essential hypertension Hyperlipidemia Paroxysmal atrial fibrillation Chief Complaint WW 3 M FU WW WW Reason for Visit Obesity Atherosclerotic heart disease of [place] coronary artery without angina pectoris Essential hypertension Hyperlipidemia Paroxysmal atrial fibrillation Chief Complaint 3 M FU WW WW WW WW HEAD INJURY Reason for Visit Obesity Atherosclerotic heart disease of [place] coronary artery without angina pectoris Essential hypertension Hyperlipidemia Paroxysmal atrial fibrillation Chief Complaint WW 6 M FU WW Reason for Visit Atherosclerotic hear t disease of [place] coronary artery without angina pectoris Essential hypertension Hyperlipidemia Paroxysmal atrial fibrillation Reason for Referral Specialty Diagnoses / Procedures Referred By Salvador t Referred To Contact CT IMAGING Diagnoses Flank pain Gross hematuria Procedures CT FLANK WO IVCON CT ABD & PELVIS W/O CONTRAST Jair Fields MD [address] [place] [address] [place] [address] Referral ID Status Reason Start Date Expiration Date V isits Requested Visits Authorized [id number] Closed Auto-Generate d Referral 08/04/2023 09/02/2024 1 1 Specialty Diagnoses / Procedures Referred By Salvador t Referred To Contact Urology Diagnoses Kidney stone on right side Flank pain Procedures CONSULT TO UROLOGY OFFICE/OUTPATIENT [facility] 60 MINUTES Jair Fields MD [address] [place] [address] Referral ID Status Reason Start Date Expiration Date V isits Requested Visits Authorized [id number] Closed PCP Requested Referral 08/05/2023 08/04/2024 1 1 Specialty Diagnoses / Procedures Referred By Salvador t Referred To Contact Ent - Otolaryngology Diagnoses Laryngitis Procedures CONSULT TO ENT OFFICE/OUTPATIENT [facility] 60 MINUTES Elaina Amezcua APRN.FATUMA [address] [place] [address] Referral ID Status Reason Start Date Expiration Date Visits Requested Visits Authorized [id number] Authorized PCP Requested Referral 11/03/2023 10/26/2024 1 1 Additional Source Comments (unrecognized sect ion and content) No Status Records FoundNo Status Records FoundNo Status Records FoundNo Status Records Found INFORMATION SOURCE (unrecogn ized section and content) DATE CREATED AUTHOR 09/20/2017 [facility] DATE CREATED AUTHOR AUTHOR'S ORGANIZ ATION 03/01/2024 [facility] DATE CREATED AUTHOR AUTHOR'S ORGANIZ ATION 04/30/2024 [facility] DATE CREATED AUTHOR AUTHOR'S ORGANIZ ATION 07/31/2024 [facility] Source Comments (unrecognize d section and content) In the event this informatio n is protected by the Federal Confidentiality of Alcohol and Drug Abuse Patient Records regulations: The Federal rules restrict any use of the information to criminally investigate or prosecute any alcohol or drug abuse patient.[place] the event this information is protected by the Federal Confidentiality of Alcohol and Drug Abuse Patient Records regulations: The Federal rules restrict any use of the information to criminally investigate or prosecute any alcohol or drug abuse patient.[place] the event this information is protected by the Federal Confidentiality of Alcohol and Drug Abuse Patient Records regulations: The Federal rules restrict any use of the information to criminally investigate or prosecute any alcohol or drug abuse patient.[place] the event this information is protected by the Federal Confidentiality of Alcohol and Drug Abuse Patient Records regulations: The Federal rules restrict any use of the information to criminally investigate or prosecute any alcohol or drug abuse patient.[place]In the event this information is protected by the Federal Confidentiality of Alcohol and Drug Abuse Patient Records regulations: The Federal rules restrict any use of the information to criminally investigate or prosecute any alcohol or drug abuse patient.[place]In the event this information is protected by the Federal Confidentiality of Alcohol and Drug Abuse Patient Records regulations: The Federal rules restrict any use of the information to criminally investigate or prosecute any alcohol or drug abuse patient.[place]In the event this information is protected by the Federal Confidentiality of Alcohol and Drug Abuse Patient Records regulations: The Federal rules restrict any use of the information to criminally investigate or prosecute any alcohol or drug abuse patient.[place]In the event this information is protected by the Federal Confidentiality of Alcohol and Drug Abuse Patient Records regulations: The Federal rules restrict any use of the information to criminally investigate or prosecute any alcohol or drug abuse patient.[place]In the event this information is protected by the Federal Confidentiality of Alcohol and Drug Abuse Patient Records regulations: The Federal rules restrict any use of the information to criminally investigate or prosecute any alcohol or drug abuse patient.[place]In the event this information is protected by the Federal Confidentiality of Alcohol and Drug Abuse Patient Records regulations: The Federal rules restrict any use of the information to criminally investigate or prosecute any alcohol or drug abuse patient.[place]In the event this information is protected by the Federal Confidentiality of Alcohol and Drug Abuse Patient Records regulations: The Federal rules restrict any use of the information to criminally investigate or prosecute any alcohol or drug abuse patient.[place]In the event this information is protected by the Federal Confidentiality of Alcohol and Drug Abuse Patient Records regulations: The Federal rules restrict any use of the information to criminally investigate or prosecute any alcohol or drug abuse patient.[place]In the event this information is protected by the Federal Confidentiality of Alcohol and Drug Abuse Patient Records regulations: The Federal rules restrict any use of the information to criminally investigate or prosecute any alcohol or drug abuse patient.[place]In the event this information is protected by the Federal Confidentiality of Alcohol and Drug Abuse Patient Records regulations: The Federal rules restrict any use of the information to criminally investigate or prosecute any alcohol or drug abuse patient.[place]In the event this information is protected by the Federal Confidentiality of Alcohol and Drug Abuse Patient Records regulations: The Federal rules restrict any use of the information to criminally investigate or prosecute any alcohol or drug abuse patient.[place]In the event this information is protected by the Federal Confidentiality of Alcohol and Drug Abuse Patient Records regulations: The Federal rules restrict any use of the information to criminally investigate or prosecute any alcohol or drug abuse patient.[place]In the event this information is protected by the Federal Confidentiality of Alcohol and Drug Abuse Patient Records regulations: The Federal rules restrict any use of the information to criminally investigate or prosecute any alcohol or drug abuse patient.[place]In the event this information is protected by the Federal Confidentiality of Alcohol and Drug Abuse Patient Records regulations: The Federal rules restrict any use of the information to criminally investigate or prosecute any alcohol or drug abuse patient.[place]In the event this information is protected by the Federal Confidentiality of Alcohol and Drug Abuse Patient Records regulations: The Federal rules restrict any use of the information to criminally investigate or prosecute any alcohol or drug abuse patient.[place]In the event this information is protected by the Federal Confidentiality of Alcohol and Drug Abuse Patient Records regulations: The Federal rules restrict any use of the information to criminally investigate or prosecute any alcohol or drug abuse patient.[place]In the event this information is protected by the Federal Confidentiality of Alcohol and Drug Abuse Patient Records regulations: The Federal rules restrict any use of the information to criminally investigate or prosecute any alcohol or drug abuse patient.[place]In the event this information is protected by the Federal Confidentiality of Alcohol and Drug Abuse Patient Records regulations: The Federal rules restrict any use of the information to criminally investigate or prosecute any alcohol or drug abuse patient.[place]In the event this information is protected by the Federal Confidentiality of Alcohol and Drug Abuse Patient Records regulations: The Federal rules restrict any use of the information to criminally investigate or prosecute any alcohol or drug abuse patient.[place]In the event this information is protected by the Federal Confidentiality of Alcohol and Drug Abuse Patient Records regulations: The Federal rules restrict any use of the information to criminally investigate or prosecute any alcohol or drug abuse patient.[place]In the event this information is protected by the Federal Confidentiality of Alcohol and Drug Abuse Patient Records regulations: The Federal rules restrict any use of the information to criminally investigate or prosecute any alcohol or drug abuse patient.[place]In the event this information is protected by the Federal Confidentiality of Alcohol and Drug Abuse Patient Records regulations: The Federal rules restrict any use of the information to criminally investigate or prosecute any alcohol or drug abuse patient.[place]In the event this information is protected by the Federal Confidentiality of Alcohol and Drug Abuse Patient Records regulations: The Federal rules restrict any use of the information to criminally investigate or prosecute any alcohol or drug abuse patient.[place]In the event this information is protected by the Federal Confidentiality of Alcohol and Drug Abuse Patient Records regulations: The Federal rules restrict any use of the information to criminally investigate or prosecute any alcohol or drug abuse patient.[place]In the event this information is protected by the Federal Confidentiality of Alcohol and Drug Abuse Patient Records regulations: The Federal rules restrict any use of the information to criminally investigate or prosecute any alcohol or drug abuse patient.[place]In the event this information is protected by the Federal Confidentiality of Alcohol and Drug Abuse Patient Records regulations: The Federal rules restrict any use of the information to criminally investigate or prosecute any alcohol or drug abuse patient.[place]In the event this information is protected by the Federal Confidentiality of Alcohol and Drug Abuse Patient Records regulations: The Federal rules restrict any use of the information to criminally investigate or prosecute any alcohol or drug abuse patient.[place]In the event this information is protected by the Federal Confidentiality of Alcohol and Drug Abuse Patient Records regulations: The Federal rules restrict any use of the information to criminally investigate or prosecute any alcohol or drug abuse patient.[place]In the event this information is protected by the Federal Confidentiality of Alcohol and Drug Abuse Patient Records regulations: The Federal rules restrict any use of the information to criminally investigate or prosecute any alcohol or drug abuse patient.[place]In the event this information is protected by the Federal Confidentiality of Alcohol and Drug Abuse Patient Records regulations: The Federal rules restrict any use of the information to criminally investigate or prosecute any alcohol or drug abuse patient.[place]In the event this information is protected by the Federal Confidentiality of Alcohol and Drug Abuse Patient Records regulations: The Federal rules restrict any use of the information to criminally investigate or prosecute any alcohol or drug abuse patient.[place]In the event this information is protected by the Federal Confidentiality of Alcohol and Drug Abuse Patient Records regulations: The Federal rules restrict any use of the information to criminally investigate or prosecute any alcohol or drug abuse patient.[place]In the event this information is protected by the Federal Confidentiality of Alcohol and Drug Abuse Patient Records regulations: The Federal rules restrict any use of the information to criminally investigate or prosecute any alcohol or drug abuse patient.[place]In the event this information is protected by the Federal Confidentiality of Alcohol and Drug Abuse Patient Records regulations: The Federal rules restrict any use of the information to criminally investigate or prosecute any alcohol or drug abuse patient.[place]In the event this information is protected by the Federal Confidentiality of Alcohol and Drug Abuse Patient Records regulations: The Federal rules restrict any use of the information to criminally investigate or prosecute any alcohol or drug abuse patient.[place]In the event this information is protected by the Federal Confidentiality of Alcohol and Drug Abuse Patient Records regulations: The Federal rules restrict any use of the information to criminally investigate or prosecute any alcohol or drug abuse patient.[place]In the event this information is protected by the Federal Confidentiality of Alcohol and Drug Abuse Patient Records regulations: The Federal rules restrict any use of the information to criminally investigate or prosecute any alcohol or drug abuse patient.[place]In the event this information is protected by the Federal Confidentiality of Alcohol and Drug Abuse Patient Records regulations: The Federal rules restrict any use of the information to criminally investigate or prosecute any alcohol or drug abuse patient.[place]In the event this information is protected by the Federal Confidentiality of Alcohol and Drug Abuse Patient Records regulations: The Federal rules restrict any use of the information to criminally investigate or prosecute any alcohol or drug abuse patient.[place]In the event this information is protected by the Federal Confidentiality of Alcohol and Drug Abuse Patient Records regulations: The Federal rules restrict any use of the information to criminally investigate or prosecute any alcohol or drug abuse patient.[place]In the event this information is protected by the Federal Confidentiality of Alcohol and Drug Abuse Patient Records regulations: The Federal rules restrict any use of the information to criminally investigate or prosecute any alcohol or drug abuse patient.[place]ervilleIn the event this information is protected by the Federal Confidentiality of Alcohol and Drug Abuse Patient Records regulations: The Federal rules restrict any use of the information to criminally investigate or prosecute any alcohol or drug abuse patient.CentervilleIn the event this information is protected by the Federal Confidentiality of Alcohol and Drug Abuse Patient Records regulations: The Federal rules restrict any use of the information to criminally investigate or prosecute any alcohol or drug abuse patient.CentervilleIn the event this information is protected by the Federal Confidentiality of Alcohol and Drug Abuse Patient Records regulations: The Federal rules restrict any use of the information to criminally investigate or prosecute any alcohol or drug abuse patient.CentervilleIn the event this information is protected by the Federal Confidentiality of Alcohol and Drug Abuse Patient Records regulations: The Federal rules restrict any use of the information to criminally investigate or prosecute any alcohol or drug abuse patient.CentervilleIn the event this information is protected by the Federal Confidentiality of Alcohol and Drug Abuse Patient Records regulations: The Federal rules restrict any use of the information to criminally investigate or prosecute any alcohol or drug abuse patient.CentervilleIn the event this information is protected by the Federal Confidentiality of Alcohol and Drug Abuse Patient Records regulations: The Federal rules restrict any use of the information to criminally investigate or prosecute any alcohol or drug abuse patient.CentervilleIn the event this information is protected by the Federal Confidentiality of Alcohol and Drug Abuse Patient Records regulations: The Federal rules restrict any use of the information to criminally investigate or prosecute any alcohol or drug abuse patient.CentervilleIn the event this information is protected by the Federal Confidentiality of Alcohol and Drug Abuse Patient Records regulations: The Federal rules restrict any use of the information to criminally investigate or prosecute any alcohol or drug abuse patient.CentervilleIn the event this information is protected by the Federal Confidentiality of Alcohol and Drug Abuse Patient Records regulations: The Federal rules restrict any use of the information to criminally investigate or prosecute any alcohol or drug abuse patient.CentervilleIn the event this information is protected by the Federal Confidentiality of Alcohol and Drug Abuse Patient Records regulations: The Federal rules restrict any use of the information to criminally investigate or prosecute any alcohol or drug abuse patient.CentervilleIn the event this information is protected by the Federal Confidentiality of Alcohol and Drug Abuse Patient Records regulations: The Federal rules restrict any use of the information to criminally investigate or prosecute any alcohol or drug abuse patient.CentervilleIn the event this information is protected by the Federal Confidentiality of Alcohol and Drug Abuse Patient Records regulations: The Federal rules restrict any use of the information to criminally investigate or prosecute any alcohol or drug abuse patient.CentervilleIn the event this information is protected by the Federal Confidentiality of Alcohol and Drug Abuse Patient Records regulations: The Federal rules restrict any use of the information to criminally investigate or prosecute any alcohol or drug abuse patient.CentervilleIn the event this information is protected by the Federal Confidentiality of Alcohol and Drug Abuse Patient Records regulations: The Federal rules restrict any use of the information to criminally investigate or prosecute any alcohol or drug abuse patient.CentervilleIn the event this information is protected by the Federal Confidentiality of Alcohol and Drug Abuse Patient Records regulations: The Federal rules restrict any use of the information to criminally investigate or prosecute any alcohol or drug abuse patient.CentervilleIn the event this information is protected by the Federal Confidentiality of Alcohol and Drug Abuse Patient Records regulations: The Federal rules restrict any use of the information to criminally investigate or prosecute any alcohol or drug abuse patient.CentervilleIn the event this information is protected by the Federal Confidentiality of Alcohol and Drug Abuse Patient Records regulations: The Federal rules restrict any use of the information to criminally investigate or prosecute any alcohol or drug abuse patient.CentervilleIn the event this information is protected by the Federal Confidentiality of Alcohol and Drug Abuse Patient Records regulations: The Federal rules restrict any use of the information to criminally investigate or prosecute any alcohol or drug abuse patient.CentervilleIn the event this information is protected by the Federal Confidentiality of Alcohol and Drug Abuse Patient Records regulations: The Federal rules restrict any use of the information to criminally investigate or prosecute any alcohol or drug abuse patient.CentervilleIn the event this information is protected by the Federal Confidentiality of Alcohol and Drug Abuse Patient Records regulations: The Federal rules restrict any use of the information to criminally investigate or prosecute any alcohol or drug abuse patient.CentervilleIn the event this information is protected by the Federal Confidentiality of Alcohol and Drug Abuse Patient Records regulations: The Federal rules restrict any use of the information to criminally investigate or prosecute any alcohol or drug abuse patient.CentervilleIn the event this information is protected by the Federal Confidentiality of Alcohol and Drug Abuse Patient Records regulations: The Federal rules restrict any use of the information to criminally investigate or prosecute any alcohol or drug abuse patient.CentervilleIn the event this information is protected by the Federal Confidentiality of Alcohol and Drug Abuse Patient Records regulations: The Federal rules restrict any use of the information to criminally investigate or prosecute any alcohol or drug abuse patient.CentervilleIn the event this information is protected by the Federal Confidentiality of Alcohol and Drug Abuse Patient Records regulations: The Federal rules restrict any use of the information to criminally investigate or prosecute any alcohol or drug abuse patient.CentervilleIn the event this information is protected by the Federal Confidentiality of Alcohol and Drug Abuse Patient Records regulations: The Federal rules restrict any use of the information to criminally investigate or prosecute any alcohol or drug abuse patient.CentervilleIn the event this information is protected by the Federal Confidentiality of Alcohol and Drug Abuse Patient Records regulations: The Federal rules restrict any use of the information to criminally investigate or prosecute any alcohol or drug abuse patient.CentervilleIn the event this information is protected by the Federal Confidentiality of Alcohol and Drug Abuse Patient Records regulations: The Federal rules restrict any use of the information to criminally investigate or prosecute any alcohol or drug abuse patient.CentervilleIn the event this information is protected by the Federal Confidentiality of Alcohol and Drug Abuse Patient Records regulations: The Federal rules restrict any use of the information to criminally investigate or prosecute any alcohol or drug abuse patient.CentervilleIn the event this information is protected by the Federal Confidentiality of Alcohol and Drug Abuse Patient Records regulations: The Federal rules restrict any use of the information to criminally investigate or prosecute any alcohol or drug abuse patient.CentervilleIn the event this information is protected by the Federal Confidentiality of Alcohol and Drug Abuse Patient Records regulations: The Federal rules restrict any use of the information to criminally investigate or prosecute any alcohol or drug abuse patient.[place] Reason for Visit (unrecogniz ed section and content) Reason Comments Follow Up Reason Onset Date Comments Refill Request 07/10/2021 Reason Onset Date Comments Refill Request 03/04/2022 Reason Comments Chest Congestion Reason Onset Date Comments Refill Request 05/15/2022 Reason Comments Forms [place] [employer] Patient Asst form/Eliquis Reason Onset Date Comments Refill Request 06/13/2022 Reason Comments Skin Check Reason Comments Follow Up 6 month follow up. Reason Comments Forms [place] Patient Sancho campos Reason Comments 6 Month Exam Reason Onset Date Comments Refill Request 06/05/2023 Reason Comments Back Pain Intermittent x 1 mon th right sided Specialty Diagnoses / Procedures Referred By Contac t Referred To Contact CT IMAGING Diagnoses Flank pain Gross hematuria Procedures CT FLANK WO IVCON CT ABD & PELVIS W/O CONTRAST Jair Fields MD [address] [place] [address] [place] [address] Referral ID Status Reason Start Date Expiration Date V isits Requested Visits Authorized [id number] Closed Auto-Generate d Referral 08/04/2023 09/02/2024 1 1 Reason Comments Kidney Stones Specialty Diagnoses / Procedures Referred By Salvador t Referred To Contact Urology Diagnoses Kidney stone on right side Flank pain Procedures CONSULT TO UROLOGY OFFICE/OUTPATIENT NEW HIGH MDM 60 MINUTES Jair Fields MD [address] [place] [address] Referral ID Status Reason Start Date Expiration Date V isits Requested Visits Authorized [id number] Closed PCP Requested Referral 08/05/2023 08/04/2024 1 1 Reason Comments Orders Patient Update Reason Comments Schedule Surgery Appointment Reason Comments Surgery Scheduled Reason Comments Results Reason Comments Appointment Reason Onset Date Comments Refill Request 04/12/2023 Reason Comments Results Reason Comments New Patient Specialty Diagnoses / Procedures Referred By Salvador t Referred To Contact Cardiology Diagnoses ASHD (arteriosclerotic heart disease) Procedures CONSULT TO CARDIOLOGY OFFICE/OUTPATIENT [facility] MDM 60-74 MINUTES Jason Cook MD [address] [place] [address] Referral ID Status Reason Start Date Expiration Date V isits Requested Visits Authorized [id number] Closed PCP Requested Referral 03/11/2023 03/10/2024 1 1 Reason Onset Date Comments Transition Of Care 10/12/2023 TCM / OON / W ooster DC 10/11/23 Reason Onset Date Comments Transition Of Care 10/19/2023 TCM / OON fol low up Reason Comments Hospital F/U [facility] 10/11/23 Cellulit is/Sepsis Reason Comments Cellulitis Follow up Throat Problem Laryngitis for 11 da ys Reason Onset Date Comments Transition Of Care 11/02/2023 TCM Follow Up Reason Comments Cardiac Clearance Reason Comments Radiology NM Specialty Diagnoses / Procedures Referred By Salvador t Referred To Contact MOLECULAR & FUNCTIONAL IMAGING Diagnoses ASHD (arteriosclerotic heart disease) SOB (shortness of breath) Procedures NM CARDIAC PERF STRESS/EXERCISE MYOCARDIAL SPECT MULTIPLE STUDIES Josh Lynch MD [address] [facility], [address] [place] [address] Molecular & Functional Imaging [address] [place] [address] Referral ID Status Reason Start Date Expiration Date V isits Requested Visits Authorized [id number] Closed Auto-Generate d Referral 10/17/2023 11/01/2024 1 1 Reason Comments Letter Stop eliquis for vera yariel Reason Onset Date Comments Refill Request 04/11/2024 Reason Comments Medication Update Reason Comments Established Patient Reason Comments Fatigue Fatigue after eating Reason Onset Date Comments Refill Request 04/22/2024 Reason Onset Date Comments Refill Request 05/06/2024 Reason Comments 6 Month Exam Reason Onset Date Comments Results 05/08/2024 Reason Onset Date Comments Refill Request 06/04/2024 Reason Comments Consult Specialty Diagnoses / Procedures Referred By Salvador t Referred To Contact General Surgery Diagnoses Gastroesophageal reflux disease without esophagitis Dysphagia, unspecified type Procedures CONSULT TO GENERAL SURGERY OFFICE/OUTPATIENT [facility] 60 MINUTES Jason Cook MD [address] [place] [id number] Phone: tel: fax: Referral ID Status Reason Start Date Expiration Date V isits Requested Visits Authorized [id number] Closed PCP Requested Referral 05/30/2024 05/30/2025 1 1 Reason Onset Date Comments Results 06/12/2024 Reason Comments New Patient Evaluation Specialty Diagnoses / Procedures Referred By Salvador t Referred To Contact Diagnoses JONAH (obstructive sleep apnea) Procedures CONSULT TO SLEEP MEDICINE - ADULT OFFICE/OUTPATIENT [facility] 60 MINUTES [facility] [place] [address] Phone: tel: fax: Referral ID Status Reason Start Date Expiration Date V isits Requested Visits Authorized [id number] Closed PCP Requested Referral 06/01/2024 06/01/2025 1 1 Care Teams (unrecognized sec tion and content) Health Careers Instructor Relationship Specialty Start Date End Date Jason Cook MD [address] [place] [place] [address] PCP - General Family Practice 10/10/20 Health Careers Instructor Relationship Specialty Start Date End Date Jason Cook MD [address] [facility] [place] [address] PCP - General Family Practice 10/10/20 Health Careers Instructor Relationship Specialty Start Date End Date Jason Cook MD [address] [place] [place] [address] PCP - General Family Medicine 10/10/20 Health Careers Instructor Relationship Specialty Start Date End Date Jason oCok MD [address] [place] [place] [address] PCP - General Family Medicine 10/10/20 Health Careers Instructor Relationship Specialty Start Date End Date Jason Cook MD [address] [place] [place] [address] PCP - General Family Medicine 10/10/20 Health Careers Instructor Relationship Specialty Start Date End Date Jason Cook MD [address] [place] [place] [address] PCP - General Family Medicine 10/10/20 Health Careers Instructor Relationship Specialty Start Date End Date Jason Cook MD [address] [place] [place] [address] PCP - General Family Medicine 10/10/20 Health Careers Instructor Relationship Specialty Start Date End Date Jason Cook MD [address] [place] [address] PCP - General Family Medicine 10/10/20 Team Status: Active Member Role Status Dates Dr. Jersey Knox III, MD Family Provider Active Dr. Jason Cook MD Primary Care Provider Active Team Status: Inactive Member Role Status Dates Dr. Jason Cook MD Primary Care Provider, Referring Provider Active Irving Johnson PREPRESS TECHNICIAN, PREPRESS TECHNICIAN-C Attending Provider Active Team Status: Inactive Member Role Status Dates Dr. Jason Cook MD Primary Care Provider Active Irving Johnson PREPRESS TECHNICIAN, PREPRESS TECHNICIAN-C Attending Provider, Referring Pro vider Active Health Careers Instructor Relationship Specialty Start Date End Date Jason Cook MD [address] [place] [address] PCP - General Family Medicine 10/10/20 Team Status: Active Member Role Status Dates Dr. Jason Cook MD Primary Care Provider Active Irving Johnson PREPRESS TECHNICIAN, PREPRESS TECHNICIAN-C Attending Provider, Referring Pro vider Active Team Status: Inactive Member Role Status Dates Dr. Jason Cook MD Primary Care Provider Active Dr. Ronaldo Siegel MD Emergency Provider Active Health Careers Instructor Relationship Specialty Start Date End Date Jason Cook MD [address] [place] [address] PCP - General Family Medicine 10/10/20 Health Careers Instructor Relationship Specialty Start Date End Date Jason Cook MD [address] [place] [address] PCP - General Family Medicine 10/10/20 Health Careers Instructor Relationship Specialty Start Date End Date Jason Cook MD [address] [place] [address] PCP - General Family Medicine 10/10/20 Team Status: Inactive Member Role Status Dates Dr. Jason Cook MD Primary Care Provider, Referring Provider Active Tonio Mario PREPRESS TECHNICIAN, PREPRESS TECHNICIAN-C Attending Provider Active Health Careers Instructor Relationship Specialty Start Date End Date Jason Cook MD [address] [place] [address] PCP - General Family Medicine 10/10/20 Health Careers Instructor Relationship Specialty Start Date End Date Jason Cook MD [address] [place], [place] [address] PCP - General Family Medicine 10/10/20 Health Careers Instructor Relationship Specialty Start Date End Date Jason Cook MD [address] [place], [place] [address] PCP - General Family Medicine 10/10/20 Health Careers Instructor Relationship Specialty Start Date End Date Jason Cook MD [address] [place], [place] [address] PCP - General Family Medicine 10/10/20 Health Careers Instructor Relationship Specialty Start Date End Date Jason Cook MD [address] [place] [address] PCP - General Family Medicine 10/10/20 Health Careers Instructor Relationship Specialty Start Date End Date Jason Cook MD [address] [place], [place] [address] PCP - General Family Medicine 10/10/20 Health Careers Instructor Relationship Specialty Start Date End Date Jason Cook MD [address] [place] [address] PCP - General Family Medicine 10/10/20 Health Careers Instructor Relationship Specialty Start Date End Date Jason Cook MD [address] [place], [place] [address] PCP - General Family Medicine 10/10/20 Health Careers Instructor Relationship Specialty Start Date End Date Jason Cook MD [address] [place], [place] [address] PCP - General Family Medicine 10/10/20 Health Careers Instructor Relationship Specialty Start Date End Date Jason Cook MD [address] [place] [address] PCP - General Family Medicine 10/10/20 Health Careers Instructor Relationship Specialty Start Date End Date Jason Cook MD [address] [place] [address] PCP - General Family Medicine 10/10/20 Health Careers Instructor Relationship Specialty Start Date End Date Jason Cook MD [address] [place] [address] PCP - General Family Medicine 10/10/20 Health Careers Instructor Relationship Specialty Start Date End Date Jason Cook MD [address] [place] [address] PCP - General Family Medicine 10/10/20 Health Careers Instructor Relationship Specialty Start Date End Date Jason Cook MD [address] [place] [address] PCP - General Family Medicine 10/10/20 Health Careers Instructor Relationship Specialty Start Date End Date Jason Cook MD [address] [place] [address] PCP - General Family Medicine 10/10/20 Che Verdin, SOULEYMANE [address] [id number] Primary Care Head Golf Professional 10/12/23 Health Careers Instructor Relationship Specialty Start Date End Date Jason Cook MD [address] [place] [address] PCP - General Family Medicine 10/10/20 Che Verdin, SOULEYMANE [address] [place] [address] Primary Care Head Golf Professional 10/12/23 Health Careers Instructor Relationship Specialty Start Date End Date aJson Cook MD [address] [place] [place] [address] PCP - General Family Medicine 10/10/20 Che Verdin RN [address] [place] [address] Primary Care Head Golf Professional 10/12/23 Health Careers Instructor Relationship Specialty Start Date End Date Jason Cook MD [address] [place] [address] PCP - General Family Medicine 10/10/20 Che Verdin RN [address] [place] [address] Primary Care Head Golf Professional 10/12/23 Health Careers Instructor Relationship Specialty Start Date End Date Jason Cook MD [address] [place] [address] PCP - General Family Medicine 10/10/20 Che Verdin, SOULEYMANE [address] [place] [address] Primary Care Head Golf Professional 10/12/23 Health Careers Instructor Relationship Specialty Start Date End Date Jason Cook MD [address] [place] [address] PCP - General Family Medicine 10/10/20 Che Verdin, SOULEYMANE [address] [place] [address] Primary Care Head Golf Professional 10/12/23 Health Careers Instructor Relationship Specialty Start Date End Date Jason Cook MD [address] [place] [address] PCP - General Family Medicine 10/10/20 Health Careers Instructor Relationship Specialty Start Date End Date Jason Cook MD [address] [place] [address] PCP - General Family Medicine 10/10/20 Health Careers Instructor Relationship Specialty Start Date End Date Jason Cook MD [address] [place] [address] PCP - General Family Medicine 10/10/20 Health Careers Instructor Relationship Specialty Start Date End Date Jason Cook MD [address] [place] [address] PCP - General Family Medicine 10/10/20 Health Careers Instructor Relationship Specialty Start Date End Date Jason Cook MD [address] [place] [address] PCP - General Family Medicine 10/10/20 Health Careers Instructor Relationship Specialty Start Date End Date Jason Cook MD [address] [place] [address] PCP - General Family Medicine 10/10/20 Health Careers Instructor Relationship Specialty Start Date End Date Jason Cook MD [address] [place] [address] PCP - General Family Medicine 10/10/20 Health Careers Instructor Relationship Specialty Start Date End Date Jersey Knox III, MD PCP - General 01/23/07 10/09/20 Health Careers Instructor Relationship Specialty Start Date End Date Jason Cook MD [address] [place] [address] PCP - General Family Medicine 10/10/20 Health Careers Instructor Relationship Specialty Start Date End Date Jason Cook MD [address] [place] [address] PCP - General Family Medicine 10/10/20 Health Careers Instructor Relationship Specialty Start Date End Date Jason Cook MD [address] [facility], [place] [address] PCP - General Family Medicine 10/10/20 Health Careers Instructor Relationship Specialty Start Date End Date Jason Cook MD [address] [place] [address] PCP - General Family Medicine 10/10/20 Neelam Morrissey MANAGER POKER.PRODUCTION TEAM MANAGER [address] [place] [address] Service Unit Operator [facility] 03/05/24 Elaina Amezcua MANAGER POKER.PRODUCTION TEAM MANAGER [address] [place] [address] Service Unit Operator [employer] [facility] 03/05/24 Health Careers Instructor Relationship Specialty Start Date End Date Jason Cook MD [address] [place] [address] PCP - General Family Medicine 10/10/20 Neelam Morrissey, MANAGER POKER.PRODUCTION TEAM MANAGER [address] [facility] [place] [address] Service Unit Operator [employer] [facility] 03/05/24 Elaina Amezcua MANAGER POKER.PRODUCTION TEAM MANAGER [address] [place] [address] Service Unit Operator [facility] 03/05/24 Health Careers Instructor Relationship Specialty Start Date End Date Jason Cook MD [address] [place] [place] [address] PCP - General Family Medicine 10/10/20 Neelam Morrissey APRN.PRODUCTION TEAM MANAGER [address] [facility] [place] [address] Service Unit Operator [facility] 03/05/24 Elaina Amezcua APRN.PRODUCTION TEAM MANAGER [address] [place] [address] Service Unit Operator [facility] 03/05/24 Health Careers Instructor Relationship Specialty Start Date End Date Jason Cook MD [address] [place] [address] PCP - General Family Medicine 10/10/20 Neelam Morrissey APRN.PRODUCTION TEAM MANAGER [address] [place] [address] Service Unit Operator [facility] 03/05/24 Elaina Amezcua APRN.PRODUCTION TEAM MANAGER [address] [place] [address] Service Unit Operator [facility] 03/05/24 Health Careers Instructor Relationship Specialty Start Date End Date Jason Cook MD [address] [place] [address] PCP - General Family Medicine 10/10/20 Neelam Morrissey APRN.PRODUCTION TEAM MANAGER [address] [facility] [place] [address] Service Unit Operator [employer] [facility] 03/05/24 Elaina Amezcua APRN.PRODUCTION TEAM MANAGER [address] [place] [address] Service Unit Operator [facility] 03/05/24 Health Careers Instructor Relationship Specialty Start Date End Date Jason Cook MD [address] [facility] [place] [address] PCP - General Family Medicine 10/10/20 Neelam Morrissey APRN.PRODUCTION TEAM MANAGER [address] [place] [address] Service Unit Operator [employer] [facility] 03/05/24 Elaina Amezcua APRN.PRODUCTION TEAM MANAGER [address] [facility] [place] [address] Service Unit [facility] 03/05/24 Health Careers Instructor Relationship Specialty Start Date End Date Jason Cook MD [address] [facility] [place] [address] PCP - General Family Medicine 10/10/20 Neelam Morrissey, MANAGER POKER.PRODUCTION TEAM MANAGER [address] [place] [address] Service Unit Operator [employer] [facility] 03/05/24 Elaina Amezcua MANAGER POKER.PRODUCTION TEAM MANAGER [address] [facility] [place] [address] Service Unit Operator [employer] Family Medicine 03/05/24 Health Careers Instructor Relationship Specialty Start Date End Date Jason Cook MD [address] [facility] [place] [address] PCP - General Family Medicine 10/10/20 Neelam Morrissey MANAGER POKER.PRODUCTION TEAM MANAGER [address] [facility] [place] [address] Service Unit Operator [facility] 03/05/24 Elaina Amezcua MANAGER POKER.PRODUCTION TEAM MANAGER [address] [facility] [address] [facility] 03/05/24 Health Careers Instructor Relationship Specialty Start Date End Date Jason Cook MD [address] [facility] [address] PCP - General Family Medicine 10/10/20 Neelam Morrissey APRN.PRODUCTION TEAM MANAGER [address] [facility] [place] [address] [facility] 03/05/24 Elaina Amezcua MANAGER POKER.PRODUCTION TEAM MANAGER [address] [facility] [place] [address] [facility] 03/05/24 Health Careers Instructor Relationship Specialty Start Date End Date Jason Cook MD [address] [facility] [address] PCP - General Family Medicine 10/10/20 Neelam Morrissey MANAGER POKER.PRODUCTION TEAM MANAGER [address] [facility] [place] [address] [facility] 03/05/24 Elaina Amezcua MANAGER POKER.PRODUCTION TEAM MANAGER [address] [facility] [place] [address] [facility] 03/05/24 Health Careers Instructor Relationship Specialty Start Date End Date Jason Cook MD [address] [facility] [address] PCP - General Family Medicine 10/10/20 Neelam Morrissey APRN.PRODUCTION TEAM MANAGER [address] [place] [address] Service Unit Operator [facility] 03/05/24 Elaina Amezcua APRN.PRODUCTION TEAM MANAGER [address] [facility] [place] [address] Service Unit Operator [facility] 03/05/24 Health Careers Instructor Relationship Specialty Start Date End Date Jason Cook MD [address] [facility] [place] [address] PCP - General Family Medicine 10/10/20 Neelam Morrissey APRN.PRODUCTION TEAM MANAGER [address] [place] [address] Service Unit Operator [facility] 03/05/24 Elaina Amezcua APRN.PRODUCTION TEAM MANAGER [address] [facility] [place] [address] [facility] 03/05/24 Health Careers Instructor Relationship Specialty Start Date End Date Jason Cook MD [address] [facility] [place] [address] PCP - General Family Medicine 10/10/20 Neelam Morrissey APRN.PRODUCTION TEAM MANAGER [address] [place] [address] Service Unit Operator [facility] 03/05/24 Elaina Amezcua APRN.PRODUCTION TEAM MANAGER [address] [facility] [place] [address] [facility] 03/05/24 Health Careers Instructor Relationship Specialty Start Date End Date Jason Cook MD [address] [place] [address] PCP - General Family Medicine 10/10/20 Neelam Morrissey APRN.PRODUCTION TEAM MANAGER [address] [place] [address] Service Unit Operator [facility] 03/05/24 Elaina Amezcua APRN.PRODUCTION TEAM MANAGER [address] [place] [address] [facility] 03/05/24 Health Careers Instructor Relationship Specialty Start Date End Date Jason Cook MD [address] [place] [address] PCP - General Family Medicine 10/10/20 Neelam Morrissey APRN.PRODUCTION TEAM MANAGER [address] [place] [address] Service Unit Operator [facility] 03/05/24 Elaina Amezcua APRN.PRODUCTION TEAM MANAGER [address] [place] [address] [facility] 03/05/24 Health Careers Instructor Relationship Specialty Start Date End Date Jason Cook MD [address] [place] [address] PCP - General Family Medicine 10/10/20 Neelam Morrissey APRN.PRODUCTION TEAM MANAGER [address] [place] [address] Service Unit Operator [facility] 03/05/24 Elaina Amezcua APRN.PRODUCTION TEAM MANAGER [address] [place] [address] [facility] 03/05/24 Health Careers Instructor Relationship Specialty Start Date End Date Jason Cook MD [address] [place], [place] [address] PCP - General Family Medicine 10/10/20 Neelam Morrissey, MANAGER POKER.PRODUCTION TEAM MANAGER [address] [place], [place] [id number] [facility] 03/05/24 Elaina Amezcua MANAGER POKER.PRODUCTION TEAM MANAGER [address] [place], [place] [address] [facility] 03/05/24 Health Careers Instructor Relationship Specialty Start Date End Date Jason Cook MD [address] [place] [address] PCP - General Family Medicine 10/10/20 Neelam Morrissey, MANAGER POKER.PRODUCTION TEAM MANAGER [address] [place], [place] [id number] [facility] 03/05/24 Elaina Amezcua MANAGER POKER.PRODUCTION TEAM MANAGER [address] [place] [address] [facility] 03/05/24 Goals (unrecognized section and content) Goals may be documented in a n alternate sectionGoals may be documented in an alternate sectionGoals may be documented in an alternate sectionGoals may be documented in an alternate sectionGoals may be documented in an alternate sectionGoals may be documented in an alternate sectionGoals may be documented in an alternate section FOR RECORDS PERTAINING TO PATIENTS WHO ARE OR HAVE BEEN ENROLLED IN A CHEMICAL DEPENDENCY/SUBSTANCEABUSE PROGRAM, SOME INFORMATION MAY BE OMITTED. This clinical summary was aggregated from multiple sources. Caution should be exercised in using it in the provision of clinical care. This summary normalizes information from multiple sources, and as a consequence, information in this document may materially change the coding, format and clinical context of patient data. In addition, data may be omitted in some cases. CLINICAL DECISIONS SHOULD BE BASED ON THE PRIMARY CLINICAL RECORDS. [facility] [email or web address] [facility]. provides no warranty or guarantee of the accuracy or completeness of information in this document.
[2024-09-02] MEDS: predniSONE 20 MG Tablet 60 MG PO (21:52)
--- NOTE | 2024-09-02 22:00 | RAD_ITS ---
PROCEDURE: CHEST PA AND LATERAL 09/02/2024 REASON FOR EXAM: COUGH TECHNIQUE: Frontal and lateral views of the chest. COMPARISON: CT chest 11/10/2023, chest radiograph 11/22/2020. FINDINGS: Hardware: Prior median sternotomy and CABG. Heart: Heart size is mildly enlarged. Mediastinum: The mediastinal contour is stable. Lungs: Bibasilar atelectasis/scarring. No focal consolidation, pleural effusion or pneumothorax. Bones: Degenerative changes are identified within the thoracic spine. RAD/Chest PA and Lateral IMPRESSION: NO ACUTE FINDINGS. Reading Location: [id number]
[2024-09-02] MEDS: Ipratropium/Albuterol Sulfate 3 ML AMPUL.NEB INHALATION ×2 (22:03→22:45)
[2024-09-02 22:04] VITALS: PULSE 68; RESP 16
--- NOTE | 2024-09-02 22:08 | ED.VIS.DYS ---
HPI History of Present Illness Chief Complaint: Cold Sx Informant: patient Narrative Narrative: Patient is 74-year-old male with history of coronary artery disease, hypertension and seasonal cough presenting with worsening cough and chest pressure. States he has had a cough for couple weeks that was more mild and he thought it was allergy related. States this afternoon it started to get worse. He went to go to bed around 7 PM (this is typical for him) and he started feel like there is a lot of phlegm in his throat that he kept having cough up. He is having coughing fits. States he felt he was going to drown. He has been wheezing. He notes after the coughing fit he developed a headache. Denies any associated fevers. Denies any congestion or ear pain. Denies any swelling of his legs. No she does have a history of pneumonia. No other complaints or concerns reported at this time. Does not today use inhaler twice which is a typical pharmacy she does any when needed. [facility] Medical History Wears glasses Wears hearing aid Loss of hearing Cancer Alcohol use History of kidney stones High cholesterol Easy bruising History of diverticulitis History of edema History of atrial fibrillation Former smoker History of echocardiogram History of stress test Cardiology follow-up encounter Obesity Arthritis Carpal tunnel syndrome, bilateral Paroxysmal atrial fibrillation Diverticulitis Postoperative atrial fibrillation Essential hypertension Atherosclerotic heart disease of [place] coronary artery without angina pectoris Paroxysmal A-fib TIA (transient ischemic attack) Chest pain CAD (coronary artery disease) GERD (gastroesophageal reflux disease) BPH (benign prostatic hyperplasia) Hyperlipidemia Hypertension Home Medications ?Medication ?Instructions ?Recorded ?Last Taken ?Type aspirin 81 mg chewable tablet 81 mg PO DAILY@0800 heart health 03/24/14 02/27/24 History multivitamin 1 tab PO DAILY nutrition support 09/22/17 10/09/23 History metoprolol tartrate 50 mg tablet 50 mg PO BID BP 04/25/19 03/06/24 03:45 History acetaminophen 325 mg capsule 325 mg PO Q6H PRN Pain Or Fever 04/26/19 Unknown History (Tylenol) losartan 100 mg tablet 100 mg PO DAILY BP 04/26/19 03/06/24 History apixaban 5 mg tablet 5 mg PO BID blood thinner #180 tabs 01/31/20 12/07/24 Rx albuterol sulfate 90 mcg/actuation 2 puff inhalation Q6H PRN PRN 11/22/20 Unknown History aerosol inhaler (ProAir HFA) Shortness Of Breath sildenafil 50 mg tablet (Viagra) 50 mg PO DAILY PRN sexual activity 02/26/21 10/03/23 History omeprazole 20 mg capsule,delayed 20 mg PO SUWEFR GERD 12/10/21 10/07/23 History release rosuvastatin 10 mg tablet 40 mg PO QHS cholesterol 03/11/23 10/08/23 History amlodipine 2.5 mg tablet 2.5 mg PO DAILY #90 tabs 07/04/23 10/08/23 Rx psyllium husk 0.4 gram capsule 0.4 g PO DAILY 12/01/23 Unknown History (Daily Fiber) cetirizine 10 mg tablet (Zyrtec) 10 mg PO DAILY #14 tabs 09/02/24 Unknown Rx prednisone 20 mg tablet 40 mg (2 x 20 mg) PO DAILY #8 tabs 09/02/24 Unknown Rx Allergy/AdvReac Type Severity Reaction Status Date / Time Iodinated Contrast Media (CT) Allergy Angioedema Verified 09/02/24 21:09 Duisthm-VHK-SgY Reductase AdvReac muscle pain Verified 09/02/24 21:09 Inhibitor (Xycacrz-Sbb-Vsg Reductase Inhibitor) Family History Mother CAD (coronary artery disease) CVA (cerebral vascular accident) History of coronary artery bypass surgery Father Hypertension Brother CAD (coronary artery disease) Presence of stent in coronary artery Sister CAD (coronary artery disease) Cancer Pancreatic Sister CAD (coronary artery disease) Surgical History Hx of surgical procedure History of squamous cell carcinoma excision History of lithotripsy (~2019) History of colon resection History of tonsillectomy History of back surgery History of inguinal hernia repair History of placement of stent in LAD coronary artery (~04/05/15) History of coronary artery bypass surgery (~11/21/16) Hx of CABG Social History household members: spouse housing: house Smoking Status: Former smoker how long ago did patient quit smokin alcohol intake: current alcohol intake frequency: 0-2 drinks per day Alcohol type: wine details: 1 galls of wine daily substance use type: does not use caffeine: Yes Type: coffee Number of servings: 2 ROS ROS ED Constitutional Constitutional ED: Denies chills or fever(s) ENT ENT ED: Denies ear pain or rhinorrhea Cardiovascular Cardiovascular: Denies chest pain Respiratory/Chest Respiratory/Chest: Reports cough, dyspnea, sputum and other Details: Wheezing Gastrointestinal Gastrointestinal: Denies abdominal pain, nausea or vomiting Musculoskeletal Musculoskeletal: Denies arthralgias, back pain or myalgias Integumentary Denies rash Neurologic Neurologic: Reports headache(s) EXAM Physical Exam Const Vital Signs: 09/02/24 21:09 09/02/24 21:20 09/02/24 22:04 Temperature 98.4 F Temperature Source Oral Pulse Rate 72 68 Respiratory Rate 18 16 Respiratory Effort Normal Non-Labored Respiratory Pattern Normal Blood Pressure 183/78 H Blood Pressure Mean 113 Pulse Ox 95 Oxygen Delivery Method Room Air Positive well nourished and well developed General Appearance ED: well developed and NAD HEENT Reports moist mucous membranes HEENT Narrative: oropharynx with some slight injection consistent with coughing Eyes PERRL Neck supple and no JVD Resp normal respiratory effort Resp Narrative: Slightly diminished breath sounds at the bases. Expiratory wheezing in the upper lung greene appreciated. No crackles or rales appreciated. No increased work of breathing. Cardio regular rate, regular rhythm and no murmurs GI non-tender and non-distended Palpation: soft Extremity normal to inspection General Extremety ED: Negative for edema General Extremity: Negative for edema Neuro oriented x3 Sensorium / Orientation: alert Motor Exam: Negative for general weakness Psych mental status grossly normal Skin no wounds MDM MDM MDM Narrative Medical decision making narrative: Patient evaluated for worsening cough, sputum production and associated headache. He appears nontoxic. Differential includes pneumonia, reactive airway, bronchitis, pneumothorax and pleural effusion. He has equal breath sounds lower suspicion for any significant pleural effusion or pneumothorax. He denies any chest pain, does not appear fluid overloaded. Low suspicion for CHF or ACS. Patient is given a DuoNeb as he is wheezing on exam. Is given oral steroids. Will obtain chest x-ray to look for pneumonia. Chest x-ray viewed by myself as well as radiology does not show any acute process. Patient be discharged home with instructions to use his inhaler every 4-6 hours (was previously only using it up to every 8 hours as he thought that was the limit of what he can use it) and with a burst of steroids. He denies any history of diabetes or issues with his blood sugar. I do not think he needs antibiotics he does not have known history of COPD and is not having pneumonia on chest x-ray or fevers. After initial breathing treatment patient has improvement still some slight wheezing. Will be given a second DuoNeb prior to discharge. Patient given return precautions. He is not hypoxic and is breathing easily. I think he is a good candidate for outpatient treatment. Discharged home in stable condition. Radiography Diagnostic Testing: Clinical Impression(s) from Imaging Studies Chest X-Ray 09/02/24 22:00 IMPRESSION: NO ACUTE FINDINGS. Reading Location: [id number] Discharge Plan Triage Chief Complaint: Cold Sx ED Provider: Trina Gerard Dx/Rx/DC Orders Clinical Impression: Acute bronchitis with wheezing Instructions: ED Bronchitis with Wheezing (Adult) Prescriptions: New prednisone 20 mg tablet 40 mg PO DAILY Qty: 8 0RF cetirizine [Zyrtec] 10 mg tablet 10 mg PO DAILY Qty: 14 0RF No Action losartan 100 mg tablet 100 mg PO DAILY acetaminophen [Tylenol] 325 mg capsule 325 mg PO Q6H PRN (Reason: Pain Or Fever) apixaban 5 mg tablet 5 mg PO BID Qty: 180 4RF Patient Comments: LAST DOSE 03/03/24 sildenafil [Viagra] 50 mg tablet 50 mg PO DAILY PRN (Reason: sexual activity) Rx Instructions: administer 30 minutes to 4 hours before activity aspirin 81 MG tablet,chewable 81 mg PO DAILY@0800 Patient Comments: Blood thinner for heart health omeprazole 20 mg capsule,delayed release(DR/EC) 20 mg PO SUWEFR Patient Comments: Acid reflux rosuvastatin 10 mg tablet 40 mg PO QHS multivitamin 1 EACH tablet 1 tab PO DAILY metoprolol tartrate 50 mg tablet 50 mg PO BID albuterol sulfate [ProAir HFA] 90 mcg/actuation Hfa Aerosol Inhaler 2 puff INHALATION Q6H PRN PRN (Reason: Shortness Of Breath) psyllium husk [Daily Fiber] 0.4 gram capsule 0.4 g PO DAILY amlodipine 2.5 mg tablet 2.5 mg PO DAILY Qty: 90 3RF Primary Care Provider: Manish Gillespie Referrals: Manish Gillespie MD [Primary Care Provider] - Activity Restrictions/Additional Instructions: Please use your inhaler every 4-6 hours as needed for cough, shortness of breath or wheezing in addition to the medications prescribed today. Print Language: Greek
[2024-09-02 22:46] VITALS: PULSE 61; RESP 16
[2024-09-02 23:00] VITALS: BP 140/70; PULSE 61; RESP 16; TEMP 36.8; O2SAT 99
== END 2024-09-02 23:04 | disposition home or self-care (01) ==
LOC: ED 21:26
PROVIDERS: Emergency Provider Emergency Medicine; PCP Family Medicine; Referring Provider Emergency Medicine; Visit Provider Emergency Medicine
DX: J20.9 Acute bronchitis, unspecified (principal); I48.0 Paroxysmal atrial fibrillation; R07.89 Other chest pain; I10 Essential (primary) hypertension; E78.00 Pure hypercholesterolemia, unspecified; I25.10 Atherosclerotic heart disease of native coronary artery without angina pectoris; R06.2 Wheezing; N40.0 Benign prostatic hyperplasia without lower urinary tract symptoms; Z79.82 Long term (current) use of aspirin; Z79.01 Long term (current) use of anticoagulants; Z87.891 Personal history of nicotine dependence
CPT/HCPCS: 71046; 94640; 99283

== ENCOUNTER 2024-11-30 15:18 | Emergency (ER) | payer MEDICARE, OTHER, SELFPAY ==
[2024-11-30] VITALS (12 sets, daily range): BP systolic 147–174; BP diastolic 73–96; PULSE 59–96; RESP 10–20; TEMP 36.5; O2SAT 91–100; BMI 38.2
--- NOTE | 2024-11-30 15:53 | EKG12_ITS ---
Test Reason : CP Blood Pressure : */* mmHG Vent. Rate : 87 BPM Atrial Rate : * BPM P-R Int : * ms QRS Dur : 96 ms QT Int : 366 ms P-R-T Axes : * -5 9 degrees QTcB Int : 440 ms Atrial fibrillation Nonspecific ST abnormality Abnormal ECG Confirmed by MARIAN MELTON, DOUGIE ([id number]), advertising editor CHERRY GARCIA ([id number]) on 12/03/2024 9:10:42 AM Referred By: BLADE/CAROLYN Confirmed By: DOUGIE FONSECA MD
--- NOTE | 2024-11-30 16:10 | RAD_ITS ---
PROCEDURE: CHEST PA AND LATERAL 11/30/2024 REASON FOR EXAM: CHEST PAIN TECHNIQUE: Procedure Code: RADCXR Modality: DX Procedure: CHEST PA AND LATERAL COMPARISON: 09/03/2019 FINDINGS: Hardware: Sternotomy wires are present. Heart: The heart size is normal. Mediastinum: The mediastinal contour is unremarkable. Lungs: The lungs are clear. Bones: The bones are unremarkable. RAD/Chest PA and Lateral IMPRESSION: NO ACUTE FINDINGS. Reading [facility]
[2024-11-30 16:39] LABS: Troponin T High Sensitivity 20 ng/L (<=22)
[2024-11-30 16:41] LABS: Anion Gap 14 (5-15); BUN 27 mg/dL (4-19); BUN/Creat Ratio 25.8 RATIO (10-20); Calcium,Total 9.0 mg/dL (7.6-11.0); Carbon Dioxide 21.5 mmol/L (21.0-32.0); Chloride 105 mmol/L (98-108); Estimated Creatinine Clearance 70.56 ml/min (50-250); Glucose 117 mg/dL (70-99); Potassium 4.1 mmol/L (3.3-5.1)
[2024-11-30 16:42] LABS: Hematocrit 43.0 % (40-54); Hemoglobin 14.7 g/dL (13.0-16.5); Immature Granulocytes Count 0.020 X10^3/uL (0.0-0.0); Mean Corp Hgb Conc 34.2 g/dL (32-36); Mean Corpuscular Volume 94.9 fL (80-94); Mean Platelet Vol. 10.7 fl (6.2-12.0); NRBC Flagged by Analyzer 0 % (0-5); Platelet Count 215 K/mm3 (150-450); RBC Distribution Width CV 13.0 % (11.6-14.6); RBC Distribution Width SD 44.7 fl (35.1-43.9); Red Blood Count 4.53 M/mm3 (4.6-6.2); White Blood Count 7.4 K/mm3 (4.4-11.0)
[2024-11-30 17:50] LABS: AST(SGOT) 24 U/L (<=37); Alanine Aminotransfer ALT/SGPT 20 U/L (<=46); Albumin, Serum 4.0 g/dL (3.4-4.8); Alkaline Phosphatase 53 U/L (40-129); Bilirubin, Direct 0.23 mg/dL (0.00-0.30); Globulin 2.7 g/dL (2.2-4.2); Lipase 53 U/L (13-75)
[2024-11-30 18:22] LABS: Troponin T High Sens 2 HR 18 ng/L (<=22)
--- NOTE | 2024-11-30 19:31 | ED.VIS.CHEST ---
HPI History of Present Illness Chief Complaint: Chest Pain Informant: patient Narrative Narrative: Patient is a 74-year-old male with history of atrial fibrillation (on Eliquis and metoprolol), hypertension, hyperlipidemia and coronary artery disease status post CABG who follows with Dr. Turner for cardiology. He is presenting today for chest pain. He states about a week ago he had sharp episode of chest pain lasting for 1 to 2 minutes. He states that over the past 5 days now he has had a mild chest discomfort but he is not sure if it is his chest or his stomach. Today he received 2 notifications from his watch that he was in atrial fibrillation which is what prompted him to come to the emergency room for further evaluation. He states has had some very mild nausea associated with this and a decreased appetite. States his bowel moods been okay. Denies any black or blood in his stool. Has had some mild lightheadedness over the past few days as well. Last night tried an antacid with no relief of his symptoms. Notes he has had some mild increased exercise intolerance but attributes that to gaining weight recently. Denies any new swelling of his legs. States he had a stress test about a year ago that was good. Came in for further evaluation. No other complaints at this time. [facility] Medical History Wears glasses Wears hearing aid Loss of hearing Cancer Alcohol use History of kidney stones High cholesterol Easy bruising History of diverticulitis History of edema History of atrial fibrillation Former smoker History of echocardiogram History of stress test Cardiology follow-up encounter Obesity Arthritis Carpal tunnel syndrome, bilateral Paroxysmal atrial fibrillation Diverticulitis Postoperative atrial fibrillation Essential hypertension Atherosclerotic heart disease of [place] coronary artery without angina pectoris Paroxysmal A-fib TIA (transient ischemic attack) Chest pain CAD (coronary artery disease) GERD (gastroesophageal reflux disease) BPH (benign prostatic hyperplasia) Hyperlipidemia Hypertension Home Medications ?Medication ?Instructions ?Recorded ?Last Taken ?Type aspirin 81 mg chewable tablet 81 mg PO DAILY@0800 heart health 03/24/14 02/27/24 History multivitamin 1 tab PO DAILY nutrition support 09/22/17 10/09/23 History metoprolol tartrate 50 mg tablet 50 mg PO BID BP 04/25/19 03/06/24 03:45 History acetaminophen 325 mg capsule 325 mg PO Q6H PRN Pain Or Fever 04/26/19 Unknown History (Tylenol) losartan 100 mg tablet 100 mg PO DAILY BP 04/26/19 03/06/24 History apixaban 5 mg tablet 5 mg PO BID blood thinner #180 tabs 04/27/19 03/03/24 Rx albuterol sulfate 90 mcg/actuation 2 puff inhalation Q6H PRN PRN 11/22/20 Unknown History aerosol inhaler (ProAir HFA) Shortness Of Breath sildenafil 50 mg tablet (Viagra) 50 mg PO DAILY PRN sexual activity 02/26/21 10/03/23 History omeprazole 20 mg capsule,delayed 20 mg PO SUWEFR GERD 12/10/21 10/07/23 History release rosuvastatin 10 mg tablet 40 mg PO QHS cholesterol 03/11/23 10/08/23 History amlodipine 2.5 mg tablet 2.5 mg PO DAILY #90 tabs 07/04/23 10/08/23 Rx psyllium husk 0.4 gram capsule 0.4 g PO DAILY 12/01/23 Unknown History (Daily Fiber) cetirizine 10 mg tablet (Zyrtec) 10 mg PO DAILY #14 tabs 09/02/24 Unknown Rx prednisone 20 mg tablet 40 mg (2 x 20 mg) PO DAILY #8 tabs 09/02/24 Unknown Rx Allergy/AdvReac Type Severity Reaction Status Date / Time Iodinated Contrast Media (CT) Allergy Angioedema Verified 11/30/24 15:21 [id number] Reductase AdvReac muscle pain Verified 11/30/24 15:21 Inhibitor (Khfnklb-Unf-Hxd Reductase Inhibitor) Family History Mother CAD (coronary artery disease) CVA (cerebral vascular accident) History of coronary artery bypass surgery Father Hypertension Brother CAD (coronary artery disease) Presence of stent in coronary artery Sister CAD (coronary artery disease) Cancer Pancreatic Sister CAD (coronary artery disease) Surgical History Hx of surgical procedure History of squamous cell carcinoma excision History of lithotripsy (~2019) History of colon resection History of tonsillectomy History of back surgery History of inguinal hernia repair History of placement of stent in LAD coronary artery (~04/05/15) History of coronary artery bypass surgery (~11/21/16) Hx of CABG Social History household members: spouse housing: house Smoking Status: Former smoker how long ago did patient quit smokin alcohol intake: current alcohol intake frequency: 0-2 drinks per day Alcohol type: wine details: 1 galls of wine daily substance use type: does not use caffeine: Yes Type: coffee Number of servings: 2 ROS ROS ED Constitutional Constitutional ED: Denies chills or fever(s) ENT ENT ED: Denies sore throat Cardiovascular Cardiovascular: Reports as per HPI and chest pain; Denies palpitations Respiratory/Chest Respiratory/Chest: Reports dyspnea on exertion; Denies cough or dyspnea Gastrointestinal Gastrointestinal: Reports nausea; Denies abdominal pain, constipation, diarrhea, melena or vomiting Genitourinary Genitourinary ED: Denies dysuria Musculoskeletal Musculoskeletal: Denies arthralgias or myalgias Integumentary Denies rash Neurologic Neurologic: Denies paresthesias or weakness Psychiatric Psychiatric: Denies anxiety Hematologic/Lymphatic Hematologic/Lymphatic: Reports easy bleeding and easy bruising EXAM Physical Exam Const Vital Signs: 11/30/24 15:18 11/30/24 15:19 11/30/24 15:53 Temperature 97.7 F L Temperature Source Temporal Pulse Rate 96 Respiratory Rate 17 Respiratory Effort Normal Non-Labored Blood Pressure 149/91 H Blood Pressure Mean 110 Pulse Ox 97 Oxygen Delivery Method Nasal Cannula Room Air 11/30/24 16:28 11/30/24 16:30 11/30/24 17:06 Temperature Temperature Source Pulse Rate 80 85 65 Respiratory Rate 13 13 15 Respiratory Effort Blood Pressure 174/96 H 165/85 H Blood Pressure Mean 120 111 Pulse Ox 100 100 97 Oxygen Delivery Method Room Air 11/30/24 17:12 11/30/24 17:15 11/30/24 17:30 Temperature Temperature Source Pulse Rate 65 65 63 Respiratory Rate 20 H 16 11 L Respiratory Effort Blood Pressure 152/81 H 156/82 H Blood Pressure Mean 99 105 Pulse Ox 98 98 96 Oxygen Delivery Method 11/30/24 17:45 11/30/24 18:00 11/30/24 18:15 Temperature Temperature Source Pulse Rate 59 L 68 62 Respiratory Rate 10 L 19 H 11 L Respiratory Effort Blood Pressure 147/76 H 161/82 H 149/77 H Blood Pressure Mean 96 103 100 Pulse Ox 91 96 97 Oxygen Delivery Method 11/30/24 19:00 11/30/24 19:47 Temperature 97.7 F L Temperature Source Pulse Rate 61 60 Respiratory Rate 16 16 Respiratory Effort Blood Pressure 158/74 H 161/73 H Blood Pressure Mean 102 102 Pulse Ox 93 100 Oxygen Delivery Method Room Air Positive well nourished and well developed General Appearance ED: well developed and NAD HEENT Reports moist mucous membranes Eyes General Eye ED: Negative for pale conjunctiva Neck supple and no JVD Chest Wall inspection of chest normal and palpation of chest normal Resp normal respiratory effort and clear to auscultation bilaterally Auscultation: Negative for rales, rhonchi or wheezes Cardio regular rate, regular rhythm and no murmurs Cardio Narrative: 2+ radial and DP pulses GI normal to inspection, nondistended, normoactive bowel sounds, soft to palpation and non-tender Extremity normal to inspection Extremity Narrative: Chronic appearing 1+ pedal edema present Neuro oriented x3 Sensorium / Orientation: awake and alert Motor Exam: Negative for general weakness Psych mental status grossly normal Skin no rashes or lesions noted and no wounds Heart Score History: Slightly/Non-Suspicious ECG: Normal Age: >/= 65 years Risk Factors: >/= 3 Risk Factors or History of CAD Troponin: </= Normal Limit Score: 4 MDM MDM MDM Narrative Medical decision making narrative: Patient evaluated for vague sensation of chest discomfort of the past 5 days. Is also intermittently been in atrial fibrillation which she does have a history of. Differential includes ACS, pleural effusion, arrhythmia, symptomatic anemia, DEE, pancreatitis gastritis and cholecystitis/choledocholithiasis. Patient overall quite well-appearing. Vital signs significant for mild hypertension. He denies any infectious symptoms such as fever, increased cough or URI symptoms and lower suspicion for pneumonia. Chest x-ray viewed by myself as well as radiology does not show any acute process. CBC, CMP, lipase largely normal. High-sensitivity troponin 20 and then on repeat 18. Initial EKG showed atrial fibrillation however patient spontaneously converted on the monitor to normal sinus rhythm. He is rate controlled the entire time. Patient reevaluated. He continues to be well-appearing and largely asymptomatic. At this time he is comfortable with outpatient follow-up. Given return precautions. Counseled exact cause of his symptoms is not clear. He is agreeable with this plan. Discharged home in stable condition peer Lab Data Attestation: I reviewed the patient's lab results. Labs: Laboratory Results - last 24 hr 11/30/24 11/30/24 15:49 17:55 WBC 7.4 RBC 4.53 L Hgb 14.7 Hct 43.0 MCV 94.9 H MCH 32.5 H MCHC 34.2 RDW Std Deviation 44.7 H RDW Coeff of Jos[place] 13.0 Plt Count 215 MPV 10.7 Immature Gran % (Auto) 0.300 Neut % (Auto) 53.5 Lymph % (Auto) 30.7 [place] % (Auto) 13.4 H Eos % (Auto) 1.6 Baso % (Auto) 0.5 Absolute Neuts (auto) 3.9 Absolute Lymphs (auto) 2.26 Nucleated RBC % 0 Sodium 140 Potassium 4.1 Chloride 105 Carbon Dioxide 21.5 Anion Gap 14 BUN 27 H Creatinine 1.04 Estim Creat Clear Calc 70.56 Est GFR (MDRD) Non-Af 75 BUN/Creatinine Ratio 25.8 H Glucose 117 H Calcium 9.0 Total Bilirubin 0.66 Direct Bilirubin 0.23 AST 24 ALT 20 Alkaline Phosphatase 53 Troponin T High Sens 20 Troponin T Hi Sens 2 Hr 18 Total Protein 6.8 Albumin 4.0 Globulin 2.7 Lipase 53 Radiography Chest X-Ray - ED: 2 View, Read by ED Physician, Read by Radiologist and No Acute Disease Diagnostic Testing: Clinical Impression(s) from Imaging Studies Chest X-Ray 11/30/24 16:10 IMPRESSION: NO ACUTE FINDINGS. Reading Location: [facility] Rhythm Strip Rhythm Strip: A-fib Rate: 87 Ectopy: None EKG Initial EKG: Attestation: I personally reviewed and interpreted this EKG as follows: Interpretation: Atrial Fibrillation Comments: Atrial fibrillation rate of 87 bpm Normal axis Normal intervals Nonspecific T wave changes present No significant ST segment changes when compared to prior EKG, patient is now in atrial fibrillation Discharge Plan Triage Chief Complaint: Chest Pain ED Provider: Trina Gerard Dx/Rx/DC Orders Clinical Impression: Chest pain of unknown etiology, History of CAD (coronary artery disease), Atrial fibrillation, Anticoagulant long-term use Instructions: ED AFIB, ED Chest Pain, Uncertain Cause Prescriptions: No Action losartan 100 mg tablet 100 mg PO DAILY acetaminophen [Tylenol] 325 mg capsule 325 mg PO Q6H PRN (Reason: Pain Or Fever) apixaban 5 mg tablet 5 mg PO BID Qty: 180 4RF Patient Comments: LAST DOSE 03/03/24 sildenafil [Viagra] 50 mg tablet 50 mg PO DAILY PRN (Reason: sexual activity) Rx Instructions: administer 30 minutes to 4 hours before activity aspirin 81 MG tablet,chewable 81 mg PO DAILY@0800 Patient Comments: Blood thinner for heart health omeprazole 20 mg capsule,delayed release(DR/EC) 20 mg PO SUWEFR Patient Comments: Acid reflux rosuvastatin 10 mg tablet 40 mg PO QHS multivitamin 1 EACH tablet 1 tab PO DAILY metoprolol tartrate 50 mg tablet 50 mg PO BID albuterol sulfate [ProAir HFA] 90 mcg/actuation Hfa Aerosol Inhaler 2 puff INHALATION Q6H PRN PRN (Reason: Shortness Of Breath) psyllium husk [Daily Fiber] 0.4 gram capsule 0.4 g PO DAILY prednisone 20 mg tablet 40 mg PO DAILY Qty: 8 0RF cetirizine [Zyrtec] 10 mg tablet 10 mg PO DAILY Qty: 14 0RF amlodipine 2.5 mg tablet 2.5 mg PO DAILY Qty: 90 3RF Primary Care Provider: Manish Gillespie Referrals: Manish Gillespie MD [Primary Care Provider] - Activity Restrictions/Additional Instructions: The exact cause of your symptoms is not clear today however your workup was largely normal and reassuring. 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 Please return if you have a progression worsening of your symptoms. Print Language: Luxem[place]ish Disposition Disposition: Home, Self Care Discharge Date/Time: 11/30/24 19:49
== END 2024-11-30 19:49 | disposition home or self-care (01) ==
PROVIDERS: Emergency Provider Emergency Medicine; PCP Family Medicine; Visit Provider Emergency Medicine
DX: R07.9 Chest pain, unspecified (principal); I48.0 Paroxysmal atrial fibrillation; I10 Essential (primary) hypertension; E78.00 Pure hypercholesterolemia, unspecified; I25.10 Atherosclerotic heart disease of native coronary artery without angina pectoris; N40.0 Benign prostatic hyperplasia without lower urinary tract symptoms; Z79.82 Long term (current) use of aspirin; Z79.52 Long term (current) use of systemic steroids; Z79.01 Long term (current) use of anticoagulants; Z79.899 Other long term (current) drug therapy; Z87.891 Personal history of nicotine dependence; Z95.1 Presence of aortocoronary bypass graft; Z86.73 Personal history of transient ischemic attack (TIA), and cerebral infarction without residual deficits
CPT/HCPCS: 71046; 80048; 80076; 83690; 84484; 85025; 93005; 99283; A4216

== ENCOUNTER 2025-03-05 08:19 | Day surgery (SDC) | payer MEDICARE, OTHER, SELFPAY ==
--- NOTE | 2025-02-26 19:55 | PAT.ANESEVAL ---
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 When Was Last Pacemaker Check QUESTION #4 FULL TEXT: You/Your Family Experience fever (hyperthermia) with Anesthesia Last Oral Intake Last Oral intake: Last Oral Intake NPO since Meds taken in AM with sips of water? Meds patient instructed to take am of surgery PONV PONV - terminal operations manager: PONV - terminal operations manager Female No 02/25/25 09:24 HX of Motion Sickness Yes 02/25/25 09:24 HX of N/V After Surgery No 02/25/25 09:24 Non-Smoker Yes 02/25/25 09:24 Duration of Surgery greater No 02/25/25 09:24 than 60 minutes Number of Risk Factors 2 02/25/25 09:24 PONV Score Moderate Risk 02/25/25 09:24 Height & Weight Height & Weight: Anesthesia: Height & Weight Height 5 ft 6 in 11/30/24 15:19 Respiratory Assessment Respiratory Assessment - terminal operations manager: Respiratory Tract Infection Hx - terminal operations manager Hx Respiratory Tract Infection No 02/25/25 09:24 STOP Sleep Apnea STOP Sleep Apnea - terminal operations manager: STOP Sleep Apnea - terminal operations manager Hx Hypertension Yes: controlled with med 02/25/25 09:24 Hx Sleep Apnea Yes: mild, no machine 02/25/25 09:24 CPAP No 02/25/25 09:24 BIPAP No 02/25/25 09:24 Do you snore loudly (louder than talking or can be heard Do you often feel tired/ fatigued/ sleepy during daytime? Has anyone observed you stop breathing during sleep? STOP Results Positive 02/25/25 09:24 QUESTION #5 FULL TEXT : Do you snore loudly (louder than talking or can be heard through closed doors)? 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 Specify any problems Hx of Preganancy in last 3 N/A 02/25/25 09:24 Months Nurse Filling Out Transfusion NBUCHER 02/25/25 09:24 & Questions: Date: 02/25/25 02/25/25 09:24 Time: :02/25/25 09:24 Patient unable to answer at this time (ie. confused, unrespo /Reproduction History /Reproductive History - terminal operations manager: /Reproductive Hx- terminal operations manager Hx Now No 02/25/25 09:24 Gestational Age (in weeks): EDC: Hx Hx Para Hx Section SAB No 02/25/25 09:24 Does the father of the baby or his family experience fever w Father of the baby Malignant Hypertension history comment [facility] Medical History (Updated 02/26/25 @ 12:14 by Yvonne Hoang) History of rectal fissure Wears glasses Wears hearing aid Loss of hearing Cancer Alcohol use History of kidney stones High cholesterol Easy bruising History of diverticulitis History of edema History of atrial fibrillation Former smoker History of echocardiogram History of stress test Cardiology follow-up encounter Obesity Arthritis Carpal tunnel syndrome, bilateral Paroxysmal atrial fibrillation Diverticulitis Postoperative atrial fibrillation Essential hypertension Atherosclerotic heart disease of [place] coronary artery without angina pectoris Paroxysmal A-fib TIA (transient ischemic attack) Chest pain CAD (coronary artery disease) GERD (gastroesophageal reflux disease) BPH (benign prostatic hyperplasia) Hyperlipidemia Hypertension Home Medications ?Medication ?Instructions ?Recorded ?Last Taken ?Type aspirin 81 mg chewable tablet 81 mg PO DAILY@0800 heart [facility] 03/24/14 02/27/24 History multivitamin 1 tab PO DAILY nutrition support 09/22/17 10/09/23 History metoprolol tartrate 50 mg tablet 50 mg PO BID BP 04/25/19 03/06/24 03:45 History acetaminophen 325 mg capsule 325 mg PO Q6H PRN Pain Or Fever 04/26/19 Unknown History (Tylenol) losartan 100 mg tablet 100 mg PO DAILY BP 04/26/19 03/06/24 History apixaban 5 mg tablet 5 mg PO BID blood thinner #180 tabs 04/27/19 03/03/24 Rx albuterol sulfate 90 mcg/actuation 2 puff inhalation Q6H PRN PRN 11/22/20 Unknown History aerosol inhaler (ProAir HFA) Shortness Of Breath sildenafil 50 mg tablet (Viagra) 50 mg PO DAILY PRN sexual activity 02/26/21 10/03/23 History omeprazole 20 mg capsule,delayed 40 mg PO DAILY GERD 12/10/21 10/07/23 History release rosuvastatin 10 mg tablet 40 mg PO QHS cholesterol 03/11/23 10/08/23 History psyllium husk 0.4 gram capsule 0.4 g PO DAILY 12/01/23 Unknown History (Daily Fiber) hydrochlorothiazide 25 mg tablet 25 mg PO DAILY 02/25/25 Unknown History Allergy/AdvReac Type Severity Reaction Status Date / Time Iodinated Contrast Media (CT) Allergy Angioedema Verified 02/25/25 09:20 [id number] Reductase AdvReac muscle pain Verified 02/25/25 09:20 Inhibitor (Gphbfve-Yom-Lqy Reductase Inhibitor) Family History Mother CAD (coronary artery disease) CVA (cerebral vascular accident) History of coronary artery bypass surgery Father Hypertension Brother CAD (coronary artery disease) Presence of stent in coronary artery Sister CAD (coronary artery disease) Cancer Pancreatic Sister CAD (coronary artery disease) Surgical History Hx of surgical procedure History of squamous cell carcinoma excision History of lithotripsy (~2019) History of colon resection History of tonsillectomy History of back surgery History of inguinal hernia repair History of placement of stent in LAD coronary artery (~04/05/15) History of coronary artery bypass surgery (~11/21/16) Hx of CABG Social History household members: spouse housing: house Smoking Status: Former smoker how long ago did patient quit smokin alcohol intake: current alcohol intake frequency: 0-2 drinks per day Alcohol type: wine details: 1 galls of wine daily substance use type: does not use caffeine: Yes Type: coffee Number of servings: 2 Audit: Pertinent Findings Pertinent Findings EKG Perinent findings: 11/30/2024. Atrial fibrillation. Nonspecific ST abnormality. Stress test pertinent findings: 12/22/2021. EF is 68%. Rest and stress nuclear imaging demonstrate relatively uniform tracer uptake and myocardial perfusion appearing within normal limits. Echo (EF%) pertinent findings: 02/09/2019. EF of 55%. RVSP is 28 mmHg. No aortic stenosis noted. Consult pertinent findings: 03/11/2023. Fabiano WILKINSON. 1. Atherosclerotic heart disease without angina-patient is status post stent to the proximal mid LAD in 2015 and a CABG x 4 in October 2016. Latest stress test in November 2021 was negative for ischemia as above. Patient appears stable. Continue current medical therapy. 2. Paroxysmal atrial fibrillation-normal rhythm on exam today. Rate is well-controlled. Continue apixaban and metoprolol. 3. Hypertension-mildly elevated in the office today normally lower at home. Continue current medical therapy. Recommendation Anesthesia Recommendation Anesthesia recommendation: OPTIMIZED for anesthesia
[2025-03-05] VITALS (9 sets, daily range): BP systolic 101–164; BP diastolic 40–78; PULSE 52–70; RESP 16; TEMP 36.1–36.2; O2SAT 94–100; BMI 39.4
[2025-03-05] MEDS: Lactated Ringers 1,000 ML 15 ML IV (08:30)
--- NOTE | 2025-03-05 08:50 | PRE.ANES_ITS ---
ASA Classification* ASA Classification ASA Classification: 2 Assessment & Plan Anesthesia* Anesthesia Assessment Anesthesia Assessment: Discussed sedation and/or anesthesia options, risks, benefits, and alternatives with patient/parents/legal guardian/POA. Questions invited. The patient/parents/legal guardian/POA seems to understand and agrees to proceed with anesthesia plan. Reviewed the physical assessment, medical history, allergy history and patient home medications list prior to surgery/procedure/anesthetic and documented any changes. Performed airway and anesthesia risk assessments. Anesthesia Type Anesthesia Type: General and MAC History Source History Obtained from:: Patient and Chart Anesthesia Focused Assessment* Temperature: 97.1 F Pulse Rate: 55 Blood Pressure: 164/70 Respiratory Rate: 16 Pulse Ox: 100 Oxygen Delivery Method: Room Air Airway Assessment Mouth opens: >3 cm Mallampati Score: II Teeth Condition: Intact Neck Range of motion (ROM): Full ROM Labs Anesthesia Preop lab: CBC WBC, (4.4-11.0) 7.4 K/mm3 11/30/24, 15:49 RBC, (4.6-6.2) 4.53 M/mm3 L 11/30/24, 15:49 Hgb, (13.0-16.5) 14.7 g/dL 11/30/24, 15:49 Hct, (40-54) 43.0 % 11/30/24, 15:49 Plt Count, (150-450) 215 K/mm3 11/30/24, 15:49 CHEMISTRY Potassium, (3.3-5.1) 4.1 mmol/L 11/30/24, 15:49 Sodium, (133-145) 140 mmol/L 11/30/24, 15:49 Magnesium, (1.6-2.6) 2.2 mg/dL 03/29/19, 15:00 BUN, (4-19) 27 mg/dL H 11/30/24, 15:49 Creatinine, (0.70-1.20) 1.04 mg/dL 11/30/24, 15:49 Glucose, (70-99) 117 mg/dL H 11/30/24, 15:49 POC Glucose, (70-110) 92 mg/dL 02/09/19, 05:34 TSH, (0.358-3.74) 2.27 uIU/mL 03/29/19, 15:00 COAG PT, (11.7-14.9) 12.1 SECONDS 02/09/19, 05:30 Pre-Assessment Diagnosis/Proposed Procedure Planned Operative Procedure(s): vocal cord injection Anesthesia History Anesthesia 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 When Was Last Pacemaker Check QUESTION #4 FULL TEXT: You/Your Family Experience fever (hyperthermia) with Anesthesia Last Oral Intake Last Oral intake: Last Oral Intake NPO since 04:00 03/05/25 08:43 Meds taken in AM with sips of Yes 03/05/25 08:43 water? Meds patient instructed to see mar 03/05/25 08:43 take am of surgery PONV PONV - government affairs director: PONV - government affairs director Female No 02/25/25 09:24 HX of Motion Sickness Yes 02/25/25 09:24 HX of N/V After Surgery No 02/25/25 09:24 Non-Smoker Yes 02/25/25 09:24 Duration of Surgery greater No 02/25/25 09:24 than 60 minutes Number of Risk Factors 2 02/25/25 09:24 PONV Score Moderate Risk 02/25/25 09:24 Height & Weight Height & Weight: Anesthesia: Height & Weight Height 5 ft 6 in 03/05/25 08:43 Weight: 110.677 kg 03/05/25 08:43 Body Mass Index (BMI) 39.4 03/05/25 08:43 Respiratory Assessment Respiratory Assessment - government affairs director: Respiratory Tract Infection Hx - government affairs director Hx Respiratory Tract Infection No 02/25/25 09:24 STOP Sleep Apnea STOP Sleep Apnea - government affairs director: STOP Sleep Apnea - government affairs director Hx Hypertension Yes: controlled with med 02/25/25 09:24 Hx Sleep Apnea Yes: mild, no machine 02/25/25 09:24 CPAP No 02/25/25 09:24 BIPAP No 02/25/25 09:24 Do you snore loudly (louder than talking or can be heard Do you often feel tired/ fatigued/ sleepy during daytime? Has anyone observed you stop breathing during sleep? STOP Results Positive 02/25/25 09:24 QUESTION #5 FULL TEXT : Do you snore loudly (louder than talking or can be heard through closed doors)? 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 Specify any problems Hx of Preganancy in last 3 N/A 02/25/25 09:24 Months Nurse Filling Out Transfusion NBUCHER 02/25/25 09:24 & Questions: Date: 02/25/25 02/25/25 09:24 Time: :27 02/25/25 09:24 Patient unable to answer at this time (ie. confused, unrespo /Reproduction History /Reproductive History - government affairs director: /Reproductive Hx- government affairs director Hx Now No 02/25/25 09:24 Gestational Age (in weeks): EDC: Hx Hx Para Hx Section SAB No 02/25/25 09:24 Does the father of the baby or his family experience fever w Father of the baby Malignant Hypertension history comment Active Medications Active Medications: Current Medications Generic Name Dose Route Start Last Admin Trade Name Freq PRN Reason Stop Dose Admin Lactated Ringer's 1,000 mls @ 15 mls/hr 03/05/25 08:30 03/05/25 08:30 IV 15 mls/hr .Q48H ROBERTO Administration PFSH Medical History History of rectal fissure Wears glasses Wears hearing aid Loss of hearing Cancer Alcohol use History of kidney stones High cholesterol Easy bruising History of diverticulitis History of edema History of atrial fibrillation Former smoker History of echocardiogram History of stress test Cardiology follow-up encounter Obesity Arthritis Carpal tunnel syndrome, bilateral Paroxysmal atrial fibrillation Diverticulitis Postoperative atrial fibrillation Essential hypertension Atherosclerotic heart disease of [place] coronary artery without angina pectoris Paroxysmal A-fib TIA (transient ischemic attack) Chest pain CAD (coronary artery disease) GERD (gastroesophageal reflux disease) BPH (benign prostatic hyperplasia) Hyperlipidemia Hypertension Home Medications ?Medication ?Instructions ?Recorded ?Last Taken ?Type aspirin 81 mg chewable tablet 81 mg PO DAILY@0800 hear t health 03/24/14 02/26/25 History multivitamin 1 tab PO DAILY nutrition sup port 09/22/17 03/05/25 History metoprolol tartrate 50 mg tablet 50 mg PO BID BP 04/2503/05/25 04:00 History acetaminophen 325 mg capsule 325 mg PO Q6H PRN Pain Or Fever 04/26/19 Unknown History (Tylenol) losartan 100 mg tablet 100 mg PO DAILY BP 04/26/19 03/05/25 History apixaban 5 mg tablet 5 mg PO BID blood thinner #1 80 tabs 04/27/19 03/02/25 Rx albuterol sulfate 90 mcg/actuation 2 puff inhalation Q 6H PRN PRN 11/22/20 Unknown History aerosol inhaler (ProAir HFA) Shortness Of Breath sildenafil 50 mg tablet (Viagra) 50 mg PO DAILY PRN se xual activity 02/26/21 10/03/23 History omeprazole 20 mg capsule,delayed 40 mg PO DAILY GERD 0 12/10/21 10/07/23 History release rosuvastatin 10 mg tablet 40 mg PO QHS cholesterol 10/08/23 History psyllium husk 0.4 gram capsule 0.4 g PO DAILY 12/01/23 Unknown History (Daily Fiber) hydrochlorothiazide 25 mg tablet 25 mg PO DAILY Unknown History Allergy/AdvReac Type Severity Reaction Status Date / Time Iodinated Contrast Media (CT) Allergy Angioedema Verified 03/05/25 08:41 Orfubdh-SJP-TqH Reductase AdvReac muscle pain Verified 03/05/25 08:41 Inhibitor (Vkhxvva-Gfq-Jwo Reductase Inhibitor) Family History Mother CAD (coronary artery disease) CVA (cerebral vascular accident) History of coronary artery bypass surgery Father Hypertension Brother CAD (coronary artery disease) Presence of stent in coronary artery Sister CAD (coronary artery disease) Cancer Pancreatic Sister CAD (coronary artery disease) Surgical History Hx of surgical procedure History of squamous cell carcinoma excision History of lithotripsy (~2019) History of colon resection History of tonsillectomy History of back surgery History of inguinal hernia repair History of placement of stent in LAD coronary artery (~04/05/15) History of coronary artery bypass surgery (~11/21/16) Hx of CABG Social History household members: spouse housing: house Smoking Status: Former smoker how long ago did patient quit smokin alcohol intake: current alcohol intake frequency: 0-2 drinks per day Alcohol type: wine details: 1 galls of wine daily substance use type: does not use caffeine: Yes Type: coffee Number of servings: 2 Review of Systems (Anesthesia) ROS Narrative System reviewed and no additional complaints, except as documented.
[2025-03-05] MEDS: Lidocaine 1% (5 ml sdv) 5 ML Vial IV (10:09)
--- NOTE | 2025-03-05 10:14 | PCM.DC ---
Discharge Instructions DC O2, CPAP, BIPAP needs Home O2 Discharge instructions: No Dressing / Incision Discharge Activity: Return to Normal Activity Dressing / Incision Call your doctor if your incision/area has: Increased Pain/ Swelling Follow Up Care Please Follow Up With: Forest Jaquez MD When: 1 month Test Results: Test results from this visit will be discussed in further detail at your follow-up appointment, if applicable. Discharge Plan Admission Attending Provider: Forest Jaquez Primary Care Provider: Manish Gillespie Instructions Print Language: [place] Discharge Orders/Prescriptions Prescriptions: No Action losartan 100 mg tablet 100 mg PO DAILY acetaminophen [Tylenol] 325 mg capsule 325 mg PO Q6H PRN (Reason: Pain Or Fever) apixaban 5 mg tablet 5 mg PO BID Qty: 180 4RF sildenafil [Viagra] 50 mg tablet 50 mg PO DAILY PRN (Reason: sexual activity) Rx Instructions: administer 30 minutes to 4 hours before activity aspirin 81 MG tablet,chewable 81 mg PO DAILY@0800 Patient Comments: Blood thinner for heart health omeprazole 20 mg capsule,delayed release(DR/EC) 40 mg PO DAILY Patient Comments: Acid reflux rosuvastatin 10 mg tablet 40 mg PO QHS multivitamin 1 EACH tablet 1 tab PO DAILY metoprolol tartrate 50 mg tablet 50 mg PO BID albuterol sulfate [ProAir HFA] 90 mcg/actuation Hfa Aerosol Inhaler 2 puff INHALATION Q6H PRN PRN (Reason: Shortness Of Breath) psyllium husk [Daily Fiber] 0.4 gram capsule 0.4 g PO DAILY hydrochlorothiazide 25 mg tablet 25 mg PO DAILY Referrals / Follow Up: Manish Gillespie MD [Primary Care Provider, Medical] Disposition Disposition (needs filled in before D/C Order can be placed): Home, Self Care
--- NOTE | 2025-03-05 10:15 | PCM.OPRPT ---
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 Surgery/Procedure Performed: direct laryngoscopy with injection of right vocal cord e commerce retailer: No Type of Anesthesia: General RN Documented Start/Stop Times: Operation Date: 03/05/25 09:45 Case Time Into Pre-Op 03/05/25 08:20 Out of Pre-Op 03/05/25 09:59 Procedure Start Time: 10:15 Procedure Stop Time: 10:33 Select all DRAINS/GRAFTS/IMPLANTS that apply: None Estimated Blood Loss: 0 Specimen collected: No Description of surgery: on the day of the procedure, after appropriate informed consent was obtained, the patient was brought to the operating room and placed in supine position on the operating table. he was placed under general endotracheal anesthesia by the anesthesiologist. the endotracheal tube was secured, the eyes were taped. the table was rotated 90 degrees toward the surgeon. given the patients prior difficulty with direct visualization, the glide scope was used to obtain a view of the glottis. the right paraglottic space at the junction of the anterior 2/3 and posterior 1/3 of the vocal cord was injected with 0.8cc of prolaryn gel. he was awoken from anesthesia and transferred to the PACU in stable condition. Surgical Findings: n/a Complications Complications: No
[2025-03-05] MEDS: fentaNYL 100 MCG/2 ML Ampul IV (10:30)
--- NOTE | 2025-03-05 10:55 | PCM.POST.ANE ---
Anesthesia: Postop Eval I Current Vital Signs Temperature: 97 F Pulse Rate: 70 Blood Pressure: 113/50 Respiratory Rate: 16 Pulse Ox: 95 Oxygen Delivery Method: Room Air Assessment Airway patent: Yes Spontaneous unlabored respirations: Yes Mental status: Awake and Calm nausea: No Vomiting: No Anesthesia Complication: No Fluid Hydration Crystalloid volume administer (ml): 400 Total IV fluid infused: 400 Progress Note Anesthesia document: Postop Eval 1 completed: Yes
--- NOTE | 2025-03-05 15:31 | POSTOPAN2_ITS ---
Anesthesia Postop Eval I Sum Postop Eval Completion status Anesthesia document: Postop Eval 1 completed: Yes Anesthesia Postop Eval I Summary Anesthesia Postop Eval I Summary: Anesthesia Postop Eval I: Assessment Summary Airway patent Yes 03/05/25 10:56 JEWEL [email or web address].[email or web address] Spontaneous unlabored Yes 03/05/25 10:56 JEWEL INSPECTOR.GDOTT respirations Mental status Awake,Calm 03/05/25 10:56 JEWEL INSPECTOR.GDOTT nausea No 03/05/25 10:56 JEWEL INSPECTOR.GDOTT Vomiting No 03/05/25 10:56 JEWEL INSPECTOR.GDOTT Anesthesia Postop Eval I: Fluid Summary Crystalloid volume administer 400 03/05/25 10:56 JEWEL INSPECTOR.GDOTT (ml) Colloids volume administered ( ml) Blood Product volume administered (ml) Total IV fluid infused 400 03/05/25 10:56 JEWEL INSPECTOR.GDOTT Anesthesia Postop Eval I: Summary Notes Anesthesia Complication No 03/05/25 10:56 JEWEL INSPECTOR.GDOTT Anesthesia Complication Comment: Post-operative progress note Anesthesia: Postop Eval II Evaluation Mental status: Awake and Calm Pain Level: 1 nausea: No Vomiting: No Complications Anesthesia Complication: No
--- NOTE | 2025-03-05 15:31 | PCM.POSTANE2 ---
Anesthesia Postop Eval I Sum Postop Eval Completion status Anesthesia document: Postop Eval 1 completed: Yes Anesthesia Postop Eval I Summary Anesthesia Postop Eval I Summary: Anesthesia Postop Eval I: Assessment Summary Airway patent Yes 03/05/25 10:56 ENROLLED AGENT.GDOTT Spontaneous unlabored Yes 03/05/25 10:56 ENROLLED AGENT.GDOTT respirations Mental status Awake,Calm 03/05/25 10:56 ENROLLED AGENT.GDOTT nausea No 03/05/25 10:56 ENROLLED AGENT.GDOTT Vomiting No 03/05/25 10:56 ENROLLED AGENT.GDOTT Anesthesia Postop Eval I: Fluid Summary Crystalloid volume administer 400 03/05/25 10:56 ENROLLED AGENT.GDOTT (ml) Colloids volume administered ( ml) Blood Product volume administered (ml) Total IV fluid infused 400 03/05/25 10:56 ENROLLED AGENT.GDOTT Anesthesia Postop Eval I: Summary Notes Anesthesia Complication No 03/05/25 10:56 ENROLLED AGENT.GDOTT Anesthesia Complication Comment: Post-operative progress note Anesthesia: Postop Eval II Evaluation Mental status: Awake and Calm Pain Level: 1 nausea: No Vomiting: No Complications Anesthesia Complication: No
== END 2025-03-05 11:57 | disposition home or self-care (01) ==
LOC: SDC 08:19 → AC 08:20
PROVIDERS: PCP Family Medicine; Referring Provider Otolaryngology; Visit Provider Otolaryngology
PROC: (CPT 31570; principal; 2025-03-05 09:25)
DX: J38.01 Paralysis of vocal cords and larynx, unilateral (principal); Z79.51 Long term (current) use of inhaled steroids; Z79.82 Long term (current) use of aspirin; Z79.01 Long term (current) use of anticoagulants; Z79.899 Other long term (current) drug therapy; Z87.891 Personal history of nicotine dependence
CPT/HCPCS: 31570; 00320; L8607; J2405